=== PATIENT | male | born 1940 | race Caucasian/White ===

== ENCOUNTER 2024-05-12 17:55 | Inpatient (IN) | payer OTHER, SELFPAY ==
[2024-05-12 14:46] VITALS: BMI 31.4
[2024-05-12 14:55] VITALS: BP 135/86
--- NOTE | 2024-05-12 15:07 | ED.GENMED ---
History of Present Illness
General
Chief Complaint: Urinary Symptoms
Source: patient
Time Seen by Provider: 05/12/24 14:45
History of Present Illness
History of Present Illness:
83-year-old male presents emergency department with inability to urinate since earlier today. He states typically he does not have difficulty urinating but over the past few weeks he has noticed that his stream is weaker and he needs to sit down to
urinate. He is having bowel movements as usual and he denies perianal anesthesia or incontinence. He did have this once before about 10 years ago relieved with a catheter briefly. He denies fever, chest pain, shortness of breath, abdominal pain,
nausea, vomiting, chills, or other complaints. Patient denies pain with urination or blood in his urine.
Past History
Past History
ED Past Medical History: Other (Kidney cancer status post left nephrectomy, hypertension, hyperlipidemia, BPH)
ED Past Surgical History: Other (Left-sided nephrectomy, inguinal hernia repair, septoplasty)
Social History
Tobacco: Non-smoker
Alcohol: None
Drug: None
Personal:
Living: other
Phy Exam
Physical Exam
Physical Exam:
GENERAL: Alert , pleasant, appears uncomfortable
EYE: pupils equal and reactive
NECK: Supple, no significant adenopathy.
ENT: o/p clr, mmm.
CARDIAC: Regular rate and rhythm .
LUNGS: Clear breath sounds bilaterally, no acute respiratory distress, no wheezes/rales/rhonchi
ABDOMEN: Soft, mild suprapubic tenderness, no r/g. There is a resolving bruise noted at suprapubic area
NEUROLOGICAL: Alert and oriented, no focal neuro deficits,maee,sens intact, speech clear
SKIN: Warm and dry, skin intact.
MUSCULOSKELETAL: No edema, well perfused.
PSYCH: Normal and appropriate interaction.
: nontender testicles without swelling, no penile discharg/ebleed/swelling or other abnl
Course
Orders/Labs/Results
Orders:
Orders
05/12/24 15:00
Lidocaine 2% [Lidocaine Uro-Jet 2%] 1 syringe .ROUTE .[employer]
05/12/24 15:11
Urinalysis Reflex To Culture Urgent
Date Specimen was Collected: 05/12/24
Time Specimen was Collected: 15:20
Urine Microscopic Reflex Cult Urgent
Urine Culture Urgent
RUBINA Source: U
Specimen Description:
Date Specimen was Collected: 05/12/24
Time Specimen was Collected: 15:20
Lidocaine 2% [Lidocaine Uro-Jet 2%] 1 syringe TOPICAL NOW STA
05/12/24 15:31
Cardiac Monitoring- Treatment ONCE
05/12/24 15:32
US Renal With Bladder Urgent
Comment:
Reason For Exam: retention (note: L nephrectomy)
05/12/24 16:35
Aztreonam [Azactam] 2,000 mg IV NOW STA
05/12/24 16:39
Complete Blood Count/With Diff Urgent
Comprehensive Metabolic Panel Urgent
Lactic Acid Q4H
Comment: CANCEL 2nd LACTIC ACID IF 1st LACTIC ACID IS LESS THAN 2
Blood Culture Routine
RUBINA Source: Blood/Venous
Specimen Description:
Blood Culture Urgent
RUBINA Source: Blood/Venous
Specimen Description:
05/12/24 16:46
Sterile Water [Sterile Water For Injection] 10 ml .ROUTE .[employer] [facility]
05/12/24 17:40
Admit/Transfer Patient As Directed
Co-Sign Provider:
Level of Care: Inpatient admission
Assign to:: Medical/Surgical
Physician / Group: maxwell garcia
Diagnosis: urinary retention, uti solo kidney, renal ca mets spine/pelvis/liver
Reason for Hospitalization: urinary retention, uti solo kidney, renal ca mets spine/pelvis/liver
Expected length of stay greater than two midnights?: Yes
ELOS- Estimated Length of Stay in days: 4
I certify the patient meets the requirements for IP care: Yes
05/12/24 17:42
Code Status As Directed
Resuscitation Status: Full Code
05/12/24 17:44
PRN Pain Medication Management As Directed
May give lesser potent ordered pain med per pt: Yes
preference::
Protocol:: Medication orders for pain may be administered in a
manner that supports deferring to patient preference
when the pt is:
- Requesting an ordered lesser potent pain medication.
Least to most potent pain medications are defined
as: acetaminophen < NSAID < tramadol < opioids
(morphine, oxycodone, hydromorphone).
- Requesting a lesser dose of the same medication IF
ORDERED.
- Requesting a less intrusive route of administration
if both routes are prescribed by the provider (PO <
IV).
05/12/24 17:53
UROLOGY CONSULT Routine
Consulting Provider: Robles Angela
Was physician already notified: Yes
Comment: urine retention /uti
05/12/24 19:45
Lactic Acid Q4H
Comment: CANCEL 2nd LACTIC ACID IF 1st LACTIC ACID IS LESS THAN 2
Abnormal Lab Results
05/12/24 05/12/24
15:11 16:39
RBC 4.57 L 10^6/uL
(4.70-6.10)
Absolute Monos (auto) 0.7 H 10^3/uL
(0.1-0.6)
Monocytes % 12.2 H %
(1.7-9.3)
Carbon Dioxide 21 L mmol/L
(22-30)
BUN 37 H mg/dl
(9-20)
Creatinine 2.2 H mg/dL
(0.7-1.3)
Total Bilirubin 1.8 H mg/dl
(0.2-1.3)
Urine Ketones Trace A
(Negative)
Ur Occult Blood Reflex 4+ A
(Negative)
Leukocyte Esterase Rfl 2+ A
(Negative)
Urine RBC 7-10 A /HPF
(0-2)
Urine WBC (Reflex) >100 A /HPF
(0-5)
Urine Bacteria (Reflex) Moderate A
(Negative)
Urine Albumin (Reflex) 2+ A
(Neg - Trace)
05/12/24 16:39
05/12/24 16:39
Vital Signs
Initial and Last Documented VS:
Initial Vital Signs
Temp Pulse Resp BP Pulse Ox
97.9 F 99 18 135/86 99
05/12/24 14:55 05/12/24 14:55 05/12/24 14:55 05/12/24 14:55 05/12/24 14:55
Last Documented Vital Signs
Temp Pulse Resp BP Pulse Ox
97.9 F 90 25 103/65 97
05/12/24 14:55 05/12/24 18:30 05/12/24 18:30 05/12/24 18:00 05/12/24 17:00
*Critical Care Note
Total Time (30-74mins, 75-104mins- exclusive of procedures): Not Applicable
Update Note
Update Note:
Patient presents to the Emergency Department with ___inability urinate
Number and Complexity of Problems Addressed at the Encounter
� Chronic conditions affecting care:
� Acute Exacerbation and/or Progression of Chronic Illness:
� Differential Diagnosis includes: But not limited to retention related to BPH, prostatitis, cancerous mass, etc.
Amount and/or Complexity of Data to be Reviewed and Analyzed
� I performed an independent evaluation of and my interpretation is:
EKG:
CT:
Xrays:
Laboratory Studies:Labs pending, urine consistent with obvious infection
Other:Ultrasound of kidney completed,
1. Collapsed urinary bladder with a Coburn catheter in place.
2. Mild chronic right renal disease.
3. Previous left nephrectomy.
� Review of other/old records reveals: Reviewed paperwork from facility which describes his meds as well as his history of BPH and kidney cancer.
� Clinical information was obtained by an independent historian:
� Prescriptions/Medications Considered but not given:
� Further testing considered but not performed:
Risk of Complications and/or Morbidity or Mortality of Patient Management
� Social determinants of health affecting care:
� Discussion with other providers (PCP, Hospitalists, Consultants, etc):
� Escalation of care including admission/observation vs risk of discharge considered:4:37 PM patient presents with urinary retention relieved with Coburn catheter, obviously infected urine noted, treatment initiated given his
nephrectomy and penicillin allergy and consideration. Remained stable. Ultrasound and labs pending. Case discussed with Dr. Garcia for admission.
ED Attending Note
-
Portions of this chart may have been created with voice recognition software.� Occasional wrong word or��sound alike� substitutions may have occurred due to the inherent limitations of voice recognition software.
Discharge Plan
Departure
Patient Disposition: Admit
Date of Disposition: 05/12/24
Time of Disposition: 16:36
Presentation/result/management discussed w/ accepting MD/DO: Hospitalist
Condition: Fair
Discharge Problem:
Acute UTI, Acute urinary retention
Interventions
Interventions:
*Risk Screen - Suicide Last Done: 05/12/24 14:46
*General Assessment Last Done: 05/12/24 14:46
*Neglect/Abuse Screening Last Done: 05/12/24 14:46
ED- Fall Risk Assessment Last Done: 05/12/24 14:46
*ED COVID-19 Vaccine History Last Done: 05/12/24 14:46
*Nursing Disposition Last Done: 05/12/24 18:43
ED-Male Genitourinary Assessment Last Done: 05/12/24 16:52
[2024-05-12] MEDS: LIDOCAINE URO-JET 2% 1 SYRINGE TOPICAL (15:20)
[2024-05-12 16:00] LABS: Urine Albumin 2+ (Neg - Trace); Urine Bilirubin Negative (Negative); Urine Character Very Cloudy (Clear); Urine Color Yellow; Urine Glucose Negative (Negative); Urine Ketone Trace (Negative); Urine Leukocyte 2+ (Negative); Urine Nitrite Negative (Negative); Urine Occult Blood 4+ (Negative); Urine Urobilinogen Negative (Neg - 1+)
[2024-05-12 16:09] LABS: Urine Bacteria Moderate (Negative); Urine White Cell >100 /HPF (0-5)
[2024-05-12 16:38] VITALS: BP 104/75
[2024-05-12] MEDS: AZACTAM 2000 MG IV (16:47)
--- NOTE | 2024-05-12 16:52 | HPS.HSE ---
Family Physician
-
Family Physician: Edsion King
Chief Complaint
-
Inability to urinate since this a.m.
History of Present Illness
83-year-old male complaining of inability to urinate since earlier today. He reports over the past few weeks he has had decreased stream and needed to sit down to urinate. He does have history of left nephrectomy secondary to renal carcinoma. He
denies fever, abdominal pain, nausea, vomiting, diarrhea, chest pain, palpitations, shortness breath, cough.
He has past medical history left nephrectomy secondary to carcinoma, HTN, HLD, BPH, hypothyroidism, depression chronic ambulatory dysfunction uses rollator/walker or wheelchair secondary to chronic back pain from Renal carcinoma mets( March 2024)
to spine, lumbar area, pelvis, liver, lesion between pancreas and stomach is on current chemotherapy Cabometyx 20 mg daily and immunotherapy every [address] Lc simpson.
Medical History
Past Medical History
Past Medical History: Reports Other
Additional Past Medical History:
left nephrectomy secondary to carcinoma
Chronic back pain with ambulatory dysfunction secondary to Hx RENAL CA mets ( March 2024) to spine, lumbar area, pelvis, liver, lesion between pancreas and stomach -follows at [facility] oncology
HTN
HLD
BPH
hypothyroidism
depression
Past Surgical History: Reports Other
Additional Past Surgical History:
Bilateral inguinal hernia
Septoplasty
Left nephrectomy secondary to renal carcinoma
Social History
Tobacco: Former Smoker (Quit 50 years ago)
Alcohol: None
Drug: None
Personal: Single
Living: Assisted Living ([facility])
Employment: Retired
Family History
Family History: Other (Mother [place] age 65 history of COPD, father malignant tumor near left ear unsure type, 1 sister after fall 1 brother living unsure)
Allergies / Home Medications
Allergies reflects when Allergies were last updated in [employer].
Home Medications with original date entered in [employer]
Allergy/Medication List:
Allergies
Allergy/AdvReac Type Severity Reaction Status Date / Time
Penicillins Allergy Unknown Verified 05/12/24 14:56
Sulfa (Sulfonamide Allergy Unknown Verified 05/12/24 14:56
Antibiotics)
Home Medications
acetaminophen 325 mg tablet 650 mg PO Q6HPRN PRN mild pain 05/12/24
amlodipine 5 mg tablet 5 mg PO DAILY 05/12/24
ascorbic acid (vitamin C) 500 mg tablet (Vitamin C) 500 mg PO DAILY 05/12/24
aspirin 81 mg tablet,delayed release 81 mg PO DAILY 05/12/24
atorvastatin 20 mg tablet 20 mg PO HS 05/12/24
bisacodyl 10 mg rectal suppository 10 mg DE [id number] PRN constipation, mom ineffective 05/12/24
cabozantinib 20 mg tablet (Cabometyx) 20 mg PO DAILY 05/12/24
cholecalciferol (vitamin D3) 50 mcg (2,000 unit) tablet (Vitamin D3) 50 mcg PO DAILY 05/12/24
fenofibrate nanocrystallized 145 mg tablet 145 mg PO DAILY 05/12/24
finasteride 5 mg tablet 5 mg PO DAILY 05/12/24
folic acid 1 mg tablet 1 mg PO DAILY 05/12/24
levothyroxine 75 mcg tablet 75 mcg PO DAILY 05/12/24
lidocaine 5 % topical patch 1 patch topical DAILY 05/12/24
magnesium hydroxide 400 mg/5 mL oral suspension (Milk of Magnesia) 30 ml PO DAILYPRN PRN constipation 05/12/24
methocarbamol 500 mg tablet 1,000 mg PO Q6HPRN PRN muscle spasms 05/12/24
omega 5-sct-jwk-fish oil 1,200 mg (144 mg-216 mg) capsule (Fish Oil) 1,200 cap PO DAILY 05/12/24
oxycodone 5 mg tablet 5 mg PO Q8HPRN PRN moderate pain 05/12/24
sodium phosphates 19 gram-7 gram/118 mL enema (Fleet Enema) 118 ml DE DAILYPRN PRN constipation 05/12/24
tamsulosin 0.4 mg capsule 0.8 mg PO NOON 05/12/24
trazodone 100 mg tablet 100 mg PO HS 05/12/24
Review of Systems
-
History Source: Patient and Family (Jeromy edwards via phone-POA)
A 12 point ROS was completed and negative except as noted: Yes
Constitutional: Denies Fever, Fatigue or Chills
EENT: Denies Sore Throat or Runny Nose
Respiratory: Denies Cough or Trouble Breathing
Cardiac: Denies Chest Pain, Diaphoresis, Palpitations or Syncope
Abdomen/GI: Denies Abdominal Pain, Nausea, Vomiting, Diarrhea, Constipated or Bloody Stools
: Reports Difficulty Voiding (Today); Denies Flank Pain
Musculoskeletal: Denies Joint Pain or Edema
Skin: Denies Itching or Rash
Neurological: Denies Dizzy or Headache
Endocrine: Reports No Symptoms
Hematologic/Lymphatic: Reports No Symptoms
Psych: Reports Calm
Physical Exam
Vital Signs
Vital Signs
Temp Pulse Resp BP Pulse Ox
97.9 F 99 18 135/86 99
05/12/24 14:55 05/12/24 14:55 05/12/24 14:55 05/12/24 14:55 05/12/24 14:55
Physical Exam
General: Conversant, Obese and Other (Poor memory recall); No Pain, Fever or Chills
HEENT: NormoCephalic, Anicteric, PERRLA and No Ptosis
Respiratory: Clear; No Wheezes, Rales or Rhonchi
Cardiac: S1/S2 and Regular Rhythm; No Murmur, Rub, Gallop or Peripheral Edema
Breast: Deferred by me
GI: Soft, Non Tender, Non Distended, Normal Bowel Sounds and No Hepatosplenomegaly
Rectal: Deferred by Provider
Genito-urinary: No costovertebral tender and Coburn (Inserted in ER initially cloudy and purulent currently yellow in color)
Musculoskeletal: No Clubbing, No Cyanosis and No Edema
Skin: Warm and Dry; No Rash
Neuro: Awake, Alert, Oriented (To person, current place, son but not place of living or all of medical history) and Cranial Nerves Intact; No DTR's Intact & Symmetrical, Slurred Speech, Facial Droop or Tremors
Psych: Calm
Impression/Plan
-
Impression/plan:
Admit to MedSurg
#Acute urinary retention/UTI Solo kidney right
#Hx LEFT nephrectomy secondary to renal carcinoma 1967
#Hx BPH
-Coburn catheter inserted in ER drained purulent urine
-Follow UA CONVEYANCER
-Follow BMP, CBC, blood cultures x 2
-IV Azactam renal dose
-IV NSS
-Continue finasteride 5 mg daily, tamsulosin 0.8 mg at noon
-Consult Urology
Renal bladder ultrasound:
1. Collapsed urinary bladder with a Coubrn catheter in place
2. Mild chronic right renal disease
3. Previous left nephrectomy
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
-Creat 2.2/bun 37
-Hold nephrotoxic meds
-IV NSS
-Follow BMP
# Hx RENAL CA mets ( March 2024) to spine, lumbar area, pelvis, liver, lesion between pancreas and stomach
-HOLD current chemotherapy Cabometyx 20 mg daily
- is on Immunotherapy every [address] Brambila [facility] oncology
#Chronic back pain with ambulatory dysfunction secondary to above RENAL CA METS spine pelvis
-Continue oxycodone 5 mg every 8 hours as needed moderate pain, lidocaine patch lumbar spine
-PT/OT/case management consult
#HTN-benign
BP 135/86
-Continue amlodipine 5 mg daily with hold parameters
#HLD
-Continue atorvastatin 20 mg at bedtime, fenofibrate 145 mg daily
#Hypothyroidism
-Continue levothyroxine 75 mcg p.o. daily
#Depression
-Continue trazodone 100 mg at bedtime
#Sleep apnea�noncompliant with CPAP since December weight loss 65 pound
DVT prophylaxis
Subcu heparin
Full code
[2024-05-12 16:53] LABS: % Basophils 0.4 % (0-2); % Eosinophils 3.2 % (0-6); % Immature Granulocytes 0.4 % (0-0.5); % Lymphocytes 29.3 % (20.5-51.1); % Monocytes 12.2 % (1.7-9.3); % Neutrophils 54.5 % (42.2-75.2); Absolute Eosinophils 0.2 10^3/uL (0-0.7); Absolute Lymphocytes 1.6 10^3/uL (1.2-3.4); Absolute Monocytes 0.7 10^3/uL (0.1-0.6); Absolute Neutrophils 2.9 10^3/uL (1.4-6.5); Hematocrit 40.5 % (39.0-52.0); Hemoglobin 13.7 g/dL (13.0-18.0); Mean Corp Hgb Conc. 33.8 g/dL (33.0-37.0); Mean Corpuscular Volume 88.6 fL (80.0-94.0); Mean Platelet Volume 9.3 fL (7.4-10.4); Nucleated Red Blood Cells % 0 % (-); Platelet Count 196 10^3/uL (130-400); Red Blood Cell Count 4.57 10^6/uL (4.70-6.10); Red Cell Dist. Width 14.5 % (11.5-14.5); White Blood Cell Count 5.3 10^3/uL (4.8-10.8)
[2024-05-12 17:00] VITALS: BP 112/74
[2024-05-12 17:02] LABS: Lactic Acid 1.3 mmol/L (0.7-2.0)
[2024-05-12 17:03] LABS: ALT (SGPT) 28 U/L (0-50); AST (SGOT) 46 U/L (17-59); Albumin 3.8 g/dl (3.5-5.0); Alkaline Phosphatase 100 U/L (38-126); Blood Urea Nitrogen 37 mg/dl (9-20); Calcium 9.3 mg/dl (8.4-10.2); Carbon Dioxide 21 mmol/L (22-30); Chloride 100 mmol/L (98-107); Estimated Creatinine Clearance 26 ml/min; Glucose 86 mg/dl (70-99); Potassium 5.1 mmol/L (3.5-5.1); Sodium 136 mmol/L (135-145); Total Bilirubin 1.8 mg/dl (0.2-1.3); Total Protein 6.8 g/dl (6.3-8.2); eGFR 29.17
--- NOTE | 2024-05-12 17:23 | W.PN.UPDATE ---
Update Note
Progress Note Update
This note serves as an addendum to the H&P by environmental engineering technician GARY Sapna BARKLEY
HPI
83M Obese , HX Renal cell CA with mets to spine, pelvis and liver s/p Lt nephrectomy pw inability to urinate since earlier today.
- reports over the past few weeks he has had decreased stream and needed to sit down to urinate.
- Denies fever, abdominal pain, nausea, vomiting, diarrhea, chest pain, palpitations, shortness breath, cough.
PHX:
HX left nephrectomy secondary to carcinoma, HTN, HLD, BPH, hypothyroidism, depression
Vital Signs
Temp Pulse Resp BP Pulse Ox
97.9 F 99 18 135/86 99
05/12/24 14:55 05/12/24 14:55 05/12/24 14:55 05/12/24 14:55 05/12/24 14:55
PE
Gen: Obese, not toxic
HEENT: anicteric
Neck:supple
Lungs: CTS
Cor: RRR S1 S2
Abdomen: soft abdomen
FIELD CLERK: AAO3, NFND
MS: no edema
Psych: nl mood and affect
Data
Laboratory Tests
05/12/24 05/12/24
15:11 16:39
WBC 5.3
Carbon Dioxide 21 L
BUN 37 H
Creatinine 2.2 H
Urine Clarity Very cloudy
Leukocyte Esterase Rfl 2+ A
Urine RBC 7-10 A
Urine WBC (Reflex) >100 A
Ur Squamous Epith Cells 3-5
Urine Bacteria (Reflex) Moderate A
BCx sent
US Renal With Bladder
1. Collapsed urinary bladder with a Coburn catheter in place.
2. Mild chronic right renal disease.
3. Previous left nephrectomy.
No prior hospitalist admission:
ASSESSMENT & PLAN
Acute urinary retention plus UTI
Solitary Rt kidney
Associated MONA suspect obstructive origin due to acute UR
suspected CKD - no prior Cr at Data
HX Lt. nephrectomy secondary to renal carcinoma
HX BPH
HX PCN and Sulfa allergy
-Coburn catheter inserted in ER drained purulent urine
-Follow UCx
-Follow BMP, CBC, blood cultures x 2
-IV Azactam
- Continue finasteride 5 mg daily, tamsulosin 0.8 mg at noon
- Uro consult
Loss 55 lbs from December 2023
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
Essential HTN
-Continue amlodipine 5 mg daily with hold parameters
DVT Px: SQH
Code: Full code
IP MS
[2024-05-12 18:00] VITALS: BP 103/65
[2024-05-12 20:00] VITALS: BP 119/69
[2024-05-12 20:19] VITALS: BMI 31.5
[2024-05-12] MEDS: HEPARIN 5000 UNITS SC (22:32)
[2024-05-12] MEDS: LIPITOR 20 MG PO (22:33)
[2024-05-12] MEDS: DESYREL 100 MG PO (22:33)
[2024-05-12] MEDS: AZACTAM 5 MG IV (23:20)
[2024-05-12 23:42] VITALS: BP 108/67
[2024-05-13] MEDS: SYNTHROID 75 MCG PO (05:11)
[2024-05-13 07:00] VITALS: BP 109/61
--- NOTE | 2024-05-13 07:29 | PTCARENOTE ---
Patient arrived on unit @1947 via stretcher from ED, pulled over with assist x3 to bed. Patient AAOx3 denies any pain or discomfort. Skin assessment completed, oriented to unit call salas within reach.
[2024-05-13] MEDS: ASPIR LOW (ENTERIC COATED) 81 MG PO (08:11)
[2024-05-13] MEDS: PROSCAR 5 MG PO (08:11)
[2024-05-13] MEDS: VITAMIN C 500 MG PO (08:12)
[2024-05-13] MEDS: FOLVITE 1 MG PO (08:12)
[2024-05-13] MEDS: VITAMIN D3 (cholecalciferol) 50 MCG PO (08:12)
[2024-05-13] MEDS: AZACTAM 5 MG IV (08:18)
[2024-05-13] MEDS: LIDOCAINE 4% PATCH 1 PATCH TOPICAL (08:18)
[2024-05-13] MEDS: NORVASC PO (08:20)
[2024-05-13] MEDS: HEPARIN 5000 UNITS SC ×2 (08:20→20:14)
[2024-05-13] MEDS: DESENEX/MITRAZOL/ZEASORB 1 APPLIC TOPICAL ×2 (08:22→20:14)
[2024-05-13 08:33] LABS: % Basophils 0.4 % (0-2); % Eosinophils 4.9 % (0-6); % Immature Granulocytes 0.4 % (0-0.5); % Lymphocytes 28.4 % (20.5-51.1); % Monocytes 11.4 % (1.7-9.3); % Neutrophils 54.5 % (42.2-75.2); Absolute Eosinophils 0.2 10^3/uL (0-0.7); Absolute Lymphocytes 1.4 10^3/uL (1.2-3.4); Absolute Monocytes 0.6 10^3/uL (0.1-0.6); Absolute Neutrophils 2.7 10^3/uL (1.4-6.5); Hematocrit 38.1 % (39.0-52.0); Hemoglobin 12.8 g/dL (13.0-18.0); Mean Corp Hgb Conc. 33.6 g/dL (33.0-37.0); Mean Corpuscular Hgb 29.6 pg (27.0-31.0); Mean Corpuscular Volume 88.2 fL (80.0-94.0); Mean Platelet Volume 9.7 fL (7.4-10.4); Nucleated Red Blood Cells % 0 % (-); Platelet Count 204 10^3/uL (130-400); Red Blood Cell Count 4.32 10^6/uL (4.70-6.10); Red Cell Dist. Width 14.5 % (11.5-14.5); White Blood Cell Count 4.9 10^3/uL (4.8-10.8)
[2024-05-13 08:54] LABS: ALT (SGPT) 24 U/L (0-50); AST (SGOT) 42 U/L (17-59); Albumin 3.5 g/dl (3.5-5.0); Alkaline Phosphatase 95 U/L (38-126); Blood Urea Nitrogen 35 mg/dl (9-20); Calcium 8.6 mg/dl (8.4-10.2); Carbon Dioxide 20 mmol/L (22-30); Chloride 102 mmol/L (98-107); Estimated Creatinine Clearance 32 ml/min; Glucose 95 mg/dl (70-99); Potassium 4.4 mmol/L (3.5-5.1); Sodium 137 mmol/L (135-145); Total Bilirubin 1.8 mg/dl (0.2-1.3); Total Protein 6.4 g/dl (6.3-8.2); eGFR 37.12
[2024-05-13 10:00] VITALS: BP 149/83; PULSE 91
[2024-05-13] MEDS: STERILE WATER FOR INJECTION 10 ML IV ×2 (10:00→21:35)
[2024-05-13] MEDS: MAXIPIME 1000 MG IV ×2 (10:01→21:35)
[2024-05-13 10:20] VITALS: BP 149/83; PULSE 91; O2SAT 98
--- NOTE | 2024-05-13 11:09 | W.PN.URO.CBU ---
Today's Communication / Plan
-
tach driscoll leg bag care
Assessment / Plan
-
uti rettnion in immuno supessed pt plab[n per id and hospital;ist but uroogicallt keep driscoll and see if pt can manage at home may need nhp
Diagnosis
-
Date of Service: May 13, 2024
-
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
Post Op Day:
Subjective
-
cannot void feels better though
Objective
-
Vital Signs
Temp Pulse Resp BP Pulse Ox
97.7 F 85 18 109/61 95
05/13/24 07:00 05/13/24 07:00 05/13/24 07:00 05/13/24 08:20 05/13/24 07:00
Laboratory Results
05/13/24 06:58
05/13/24 06:58
Review of Systems
-
Constitutional: Fever and Chills
: Difficulty Voiding
Physical Exam
-
General - well developed, well nourished, no acute distress
Chest - clear bilaterally
Abdomen - soft, non-tender, positive bowel sounds, no CVAT, no incisional pain or distention
Genitalia - normal
Rectal - normal
Skin - warm & dry with no rash
Neuro - AOx3, no motor deficits
Extremities - no clubbing, no cyanosis, no edema
Incision - clean, dry
Dressing - clean, dry, intact
Care Review
Data Reviewed
Discussed with: Nursing, Family and Other (soc svcs)
CT Scan: Image Pers Reviewed
[2024-05-13] MEDS: FLOMAX 0.8 MG PO (12:18)
[2024-05-13] MEDS: TUMS CHEWABLE TABLET 200 MG PO (12:37)
--- NOTE | 2024-05-13 14:11 | W.PN.HOSP.TC ---
Today's Communication/Plan
-
continue outlined plan
Assessment / Plan
Assessment / Plan
Assessment:
Acute urinary retention/UTI Solo kidney right
Hx LEFT nephrectomy secondary to renal carcinoma 1967
Hx BPH
- s/p Coburn in ER, purulent urine noted. Culture rapidly negative, suspect false negative. Repeat Ucx now
- continue Cefepime
- continue IVF
- Urology consulting; plan for Coburn at time of DC
- continue Proscar/Finasteride
MONA on CKD stage 4, obstuctive
- continue IVF
- continue Coburn
- follow BMP
Early satiety, food stuck sensation, heartburn
- start with esophageal contrast study
- consider GI eval
Hx of Renal Cancer with mets to spine, lumbar area, pelvis, liver, lesion between pancreas and stomach
- hold current chemotherapy Cabometyx 20 mg daily
- is on Immunotherapy every [address] Brambila [facility] oncology
Chronic back pain with ambulatory dysfunction secondary to above RENAL CA METS spine pelvis
- continue oxycodone 5 mg every 8 hours as needed moderate pain, lidocaine patch lumbar spine
- PT/OT/case management consult
Essential HTN
- continue amlodipine
HLD
- continue atorvastatin 20 mg at bedtime, fenofibrate 145 mg daily
Hypothyroidism
- continue levothyroxine 75 mcg p.o. daily
Depression
- continue trazodone 100 mg at bedtime
KATLYN - noncompliant with CPAP since December weight loss 65 pound
DVT ppx: SC Heparin
Code: Full
Anticipated Discharge: > 48 hours
Subjective/Interval History
-
Date of Service: May 13, 2024
reports some issues with taking pills/food - food stuck sensation, heartburn, early satiety. Tums not helpful
Objective Data
-
Labs:
Laboratory Results
05/13/24
06:58
WBC 4.9
Hgb 12.8 L
Hct 38.1 L
Plt Count 204
Sodium 137
Potassium 4.4
Chloride 102
Carbon Dioxide 20 L
BUN 35 H
Creatinine 1.8 H
Glucose 95
Calcium 8.6
Total Bilirubin 1.8 H
AST 42
ALT 24
Alkaline Phosphatase 95
Vital Signs:
Vital Signs
Temp Pulse Resp BP Pulse Ox
97.7 F 85 18 109/61 95
05/13/24 07:00 05/13/24 07:00 05/13/24 07:00 05/13/24 08:20 05/13/24 07:00
Physical Exam
-
General: No Apparent Distress
HEENT: Normocephalic and Atraumatic
Respiratory: Negative Wheezes
Cardiac: Regular Rhythm and S1/S2
GI: Soft and Nontender
Genito-urinary: Coburn
Neuro: AO x 3
Psych: Calm
Data Reviewed
-
Total Time Spent with Patient (in minutes): 41
Labs: Labs Reviewed by me
[2024-05-13 15:00] VITALS: BP 116/71
[2024-05-13 15:46] VITALS: BMI 31.5
--- NOTE | 2024-05-13 16:00 | PTCARENOTE ---
at 1232, patient c/o heartburn, has difficulty taking oral medications/food, feels like 'It's getting stuck' early satiety. notified Dr. Awad requesting Tums. Tums administered (see MAR) with some relief, will continue to monitor.
[2024-05-13] MEDS: DESYREL 100 MG PO (21:35)
[2024-05-13] MEDS: LIPITOR 20 MG PO (21:35)
[2024-05-13 23:19] VITALS: BP 98/63
[2024-05-14] MEDS: SYNTHROID 75 MCG PO (05:56)
[2024-05-14 07:00] VITALS: BP 112/74
[2024-05-14 07:26] LABS: % Basophils 0.2 % (0-2); % Eosinophils 3.9 % (0-6); % Immature Granulocytes 0.4 % (0-0.5); % Monocytes 10.9 % (1.7-9.3); % Neutrophils 49.6 % (42.2-75.2); Absolute Eosinophils 0.2 10^3/uL (0-0.7); Absolute Lymphocytes 1.7 10^3/uL (1.2-3.4); Absolute Monocytes 0.5 10^3/uL (0.1-0.6); Absolute Neutrophils 2.4 10^3/uL (1.4-6.5); Hematocrit 39.8 % (39.0-52.0); Hemoglobin 13.1 g/dL (13.0-18.0); Mean Corp Hgb Conc. 32.9 g/dL (33.0-37.0); Mean Corpuscular Hgb 29.6 pg (27.0-31.0); Mean Corpuscular Volume 89.8 fL (80.0-94.0); Mean Platelet Volume 9.5 fL (7.4-10.4); Nucleated Red Blood Cells % 0 % (-); Platelet Count 187 10^3/uL (130-400); Red Blood Cell Count 4.43 10^6/uL (4.70-6.10); Red Cell Dist. Width 14.6 % (11.5-14.5); White Blood Cell Count 4.9 10^3/uL (4.8-10.8)
[2024-05-14 07:50] LABS: ALT (SGPT) 25 U/L (0-50); AST (SGOT) 46 U/L (17-59); Albumin 3.4 g/dl (3.5-5.0); Alkaline Phosphatase 95 U/L (38-126); Blood Urea Nitrogen 33 mg/dl (9-20); Calcium 8.9 mg/dl (8.4-10.2); Carbon Dioxide 21 mmol/L (22-30); Chloride 101 mmol/L (98-107); Estimated Creatinine Clearance 35 ml/min; Glucose 94 mg/dl (70-99); Sodium 136 mmol/L (135-145); Total Bilirubin 1.6 mg/dl (0.2-1.3); Total Protein 6.4 g/dl (6.3-8.2); eGFR 42.49
[2024-05-14] MEDS: VITAMIN D3 (cholecalciferol) 50 MCG PO (09:15)
[2024-05-14] MEDS: NORVASC 5 MG PO (09:15)
[2024-05-14] MEDS: PROSCAR 5 MG PO (09:15)
[2024-05-14] MEDS: FOLVITE 1 MG PO (09:15)
[2024-05-14] MEDS: VITAMIN C 500 MG PO (09:15)
[2024-05-14] MEDS: ASPIR LOW (ENTERIC COATED) 81 MG PO (09:15)
[2024-05-14] MEDS: LIDOCAINE 4% PATCH TOPICAL ×2 (09:16→11:05)
[2024-05-14] MEDS: HEPARIN 5000 UNITS SC ×2 (09:16→19:51)
[2024-05-14] MEDS: MAXIPIME 1000 MG IV ×2 (09:24→21:19)
[2024-05-14] MEDS: STERILE WATER FOR INJECTION 10 ML IV ×2 (09:24→21:19)
[2024-05-14] MEDS: DESENEX/MITRAZOL/ZEASORB 1 APPLIC TOPICAL ×2 (09:25→19:54)
--- NOTE | 2024-05-14 11:31 | W.PN.HOSP.TC ---
Today's Communication/Plan
-
continue IV Abx
continue Coburn
Esophageal contrast study tomorrow
add PPI and continue prn Tums for symptoms
Assessment / Plan
Assessment / Plan
Assessment:
Acute urinary retention/UTI Solo kidney right
Hx LEFT nephrectomy secondary to renal carcinoma 1967
Hx BPH
- s/p Coburn in ER, purulent urine noted. Culture rapidly negative, suspect false negative. Repeat Ucx now
- continue Cefepime, day 2
- continue IVF
- Urology consulting; plan for Coburn at time of DC
- continue Proscar/Finasteride
MONA on CKD stage 4, obstructive
- continue IVF
- continue Coburn
- follow BMP
Early satiety, food stuck sensation, heartburn
- NPO past MN for esophageal contrast study
- add Tums prn
- PPI daily
- consider GI eval after study as may need endoscopic evaluation
Hx of Renal Cancer with mets to spine, lumbar area, pelvis, liver, lesion between pancreas and stomach
- hold current chemotherapy Cabometyx 20 mg daily
- is on Immunotherapy every [address] Brambila [facility] oncology
Chronic back pain with ambulatory dysfunction secondary to above RENAL CA METS spine pelvis
- continue oxycodone 5 mg every 8 hours as needed moderate pain, lidocaine patch lumbar spine
- PT/OT/case management consult
Essential HTN
- continue amlodipine
HLD
- continue atorvastatin 20 mg at bedtime, fenofibrate 145 mg daily
Hypothyroidism
- continue levothyroxine 75 mcg p.o. daily
Depression
- continue trazodone 100 mg at bedtime
KATLYN - noncompliant with CPAP since May weight loss 65 pound
DVT ppx: SC Heparin
Code: Full
Anticipated Discharge: > 48 hours
Subjective/Interval History
-
Date of Service: May 14, 2024
continues to experience heartburn, dysphagia symptoms
Objective Data
-
Labs:
Laboratory Results
05/14/24
06:27
WBC 4.9
Hgb 13.1
Hct 39.8
Plt Count 187
Sodium 136
Potassium 5.0
Chloride 101
Carbon Dioxide 21 L
BUN 33 H
Creatinine 1.6 H
Glucose 94
Calcium 8.9
Total Bilirubin 1.6 H
AST 46
ALT 25
Alkaline Phosphatase 95
Vital Signs:
Vital Signs
Temp Pulse Resp BP Pulse Ox
98.1 F 90 16 112/74 96
05/14/24 07:00 05/14/24 07:00 05/14/24 07:00 05/14/24 07:00 05/14/24 07:00
I&O
05/13/24 05/14/24 05/15/24
06:59 06:59 06:59
Intake Total 1060 / 1060
Output Total 450 / 450
Balance 610 / 610
Physical Exam
-
General: No Apparent Distress
HEENT: Normocephalic and Atraumatic
Respiratory: Negative Wheezes
Cardiac: Regular Rhythm and S1/S2
GI: Soft and Nontender
Genito-urinary: Coburn
Musculoskeletal: No Edema
Neuro: AO x 3
Hematologic / Lymphatic: No Lymphadenopathy
Psych: Calm
Data Reviewed
-
Total Time Spent with Patient (in minutes): 42
Labs: Labs Reviewed by me
--- NOTE | 2024-05-14 11:51 | W.PN.URO.CBU ---
Today's Communication / Plan
-
home when stable with driscoll spoke with son florencio is approsed ofurologic pron[blem
Assessment / Plan
-
uti rettnion in immuno supessed pt plab[n per id and hospital;ist but uroogicallt keep driscoll and see if pt can manage at home may need nhp
Diagnosis
-
Date of Service: May 14, 2024
-
Patient Diagnosis:
Post Op Day:
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
Post Op Day:
Subjective
-
toerating driscoll no hematuria
Objective
-
Vital Signs
Temp Pulse Resp BP Pulse Ox
98.1 F 90 16 112/74 96
05/14/24 07:00 05/14/24 07:00 05/14/24 07:00 05/14/24 07:00 05/14/24 07:00
Intake and Output
05/13/24 05/14/24 05/15/24
06:59 06:59 06:59
Intake Total 1060 / 1060
Output Total 450 / 450
Balance 610 / 610
Intake:
Oral fluids 1060 / 1060
Output:
Urine, Driscoll 450 / 450
Laboratory Results
05/14/24 06:27
05/14/24 06:27
Review of Systems
-
: Difficulty Voiding
Physical Exam
-
General - well developed, well nourished, no acute distress
Chest - clear bilaterally
Abdomen - soft, non-tender, positive bowel sounds, no CVAT, no incisional pain or distention
Genitalia - normal
Rectal - normal
Skin - warm & dry with no rash
Neuro - AOx3, no motor deficits
Extremities - no clubbing, no cyanosis, no edema
Incision - clean, dry
Dressing - clean, dry, intact
Care Review
Data Reviewed
Discussed with: Hospitalist and Family
[2024-05-14] MEDS: FLOMAX 0.8 MG PO (12:15)
[2024-05-14] MEDS: NSS (PRESERVATIVE FREE) 10 ML IV (12:17)
[2024-05-14] MEDS: PROTONIX IV 40 MG IV (12:17)
--- NOTE | 2024-05-14 14:36 | PTCARENOTE ---
Patient OOB with walker and supervision. Patient ambulated in halls and sat in chair for 2.5 hours. Patient tolerating small amounts of soft food. Patient states, 'I feel like it is just sitting there and I don't feel hungry anymore.'
[2024-05-14 15:00] VITALS: BP 108/81
--- NOTE | 2024-05-14 16:55 | CM ---
Patient lives at [facility], per Dr. Angela will need to go home on [place]. Assessment needs to be done.
Plan: Case management will continue to follow and assist with discharge planning. Tentative plan is for patient to return to [facility].
[2024-05-14] MEDS: DESYREL 100 MG PO (21:18)
[2024-05-14] MEDS: LIPITOR 20 MG PO (21:18)
[2024-05-14 23:17] VITALS: BP 120/64
[2024-05-15] MEDS: SYNTHROID 75 MCG PO (05:34)
[2024-05-15 06:11] LABS: % Basophils 0.4 % (0-2); % Eosinophils 4.2 % (0-6); % Immature Granulocytes 0.2 % (0-0.5); % Lymphocytes 31.2 % (20.5-51.1); % Monocytes 11.1 % (1.7-9.3); % Neutrophils 52.9 % (42.2-75.2); ALT (SGPT) 30 U/L (0-50); AST (SGOT) 61 U/L (17-59); Absolute Eosinophils 0.2 10^3/uL (0-0.7); Absolute Lymphocytes 1.6 10^3/uL (1.2-3.4); Absolute Monocytes 0.6 10^3/uL (0.1-0.6); Absolute Neutrophils 2.6 10^3/uL (1.4-6.5); Albumin 3.4 g/dl (3.5-5.0); Alkaline Phosphatase 83 U/L (38-126); Blood Urea Nitrogen 34 mg/dl (9-20); Calcium 8.6 mg/dl (8.4-10.2); Carbon Dioxide 20 mmol/L (22-30); Chloride 103 mmol/L (98-107); Estimated Creatinine Clearance 35 ml/min; Glucose 103 mg/dl (70-99); Hematocrit 37.6 % (39.0-52.0); Hemoglobin 12.5 g/dL (13.0-18.0); Mean Corp Hgb Conc. 33.2 g/dL (33.0-37.0); Mean Corpuscular Hgb 28.6 pg (27.0-31.0); Mean Platelet Volume 9.3 fL (7.4-10.4); Nucleated Red Blood Cells % 0 % (-); Platelet Count 200 10^3/uL (130-400); Potassium 5.1 mmol/L (3.5-5.1); Red Blood Cell Count 4.37 10^6/uL (4.70-6.10); Red Cell Dist. Width 14.6 % (11.5-14.5); Sodium 136 mmol/L (135-145); Total Bilirubin 1.5 mg/dl (0.2-1.3); Total Protein 6.3 g/dl (6.3-8.2); eGFR 42.49
[2024-05-15 08:00] VITALS: BP 105/65
[2024-05-15] MEDS: FOLVITE 1 MG PO (08:32)
[2024-05-15] MEDS: VITAMIN D3 (cholecalciferol) 50 MCG PO (08:32)
[2024-05-15] MEDS: ASPIR LOW (ENTERIC COATED) 81 MG PO (08:32)
[2024-05-15] MEDS: VITAMIN C 500 MG PO (08:32)
[2024-05-15] MEDS: PROSCAR 5 MG PO (08:32)
[2024-05-15] MEDS: NORVASC PO (08:34)
[2024-05-15] MEDS: LIDOCAINE 4% PATCH 1 PATCH TOPICAL (08:34)
[2024-05-15] MEDS: PROTONIX IV 40 MG IV ×2 (08:35→21:47)
[2024-05-15] MEDS: HEPARIN 5000 UNITS SC ×2 (08:36→21:47)
[2024-05-15] MEDS: NSS (PRESERVATIVE FREE) 10 ML IV ×2 (08:37→21:48)
[2024-05-15] MEDS: DESENEX/MITRAZOL/ZEASORB 1 APPLIC TOPICAL ×2 (08:38→21:48)
--- NOTE | 2024-05-15 09:16 | W.PN.URO.CBU ---
Today's Communication / Plan
-
home with driscoll
Assessment / Plan
-
uti rettnion in immuno supessed pt plab[n per id and hospital;ist but uroogicallt keep driscoll and see if pt can manage at home may need nhp
Diagnosis
-
Date of Service: May 15, 2024
-
Patient Diagnosis:
Post Op Day:
Patient Diagnosis:
Post Op Day:
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
Post Op Day:
Subjective
-
tolerating driscoll
Objective
-
Vital Signs
Temp Pulse Resp BP Pulse Ox
97.5 F 84 24 105/65 98
05/15/24 08:00 05/15/24 08:00 05/15/24 08:00 05/15/24 08:00 05/15/24 08:00
Intake and Output
05/14/24 05/15/24 05/16/24
06:59 06:59 06:59
Intake Total 1060 / 1060 480 / 480
Output Total 450 / 450 450 / 450
Balance 610 / 610 30 / 30
Intake:
Oral fluids 1060 / 1060 480 / 480
Output:
Urine, Driscoll 450 / 450 450 / 450
Laboratory Results
05/15/24 05:37
05/15/24 05:37
Review of Systems
-
: Difficulty Voiding
Physical Exam
-
General - well developed, well nourished, no acute distress
Chest - clear bilaterally
Abdomen - soft, non-tender, positive bowel sounds, no CVAT, no incisional pain or distention
Genitalia - normal
Rectal - normal
Skin - warm & dry with no rash
Neuro - AOx3, no motor deficits
Extremities - no clubbing, no cyanosis, no edema
Incision - clean, dry
Dressing - clean, dry, intact
Care Review
Data Reviewed
Discussed with: Nursing
[2024-05-15] MEDS: STERILE WATER FOR INJECTION 10 ML IV (10:38)
[2024-05-15] MEDS: MAXIPIME 1000 MG IV (10:39)
--- NOTE | 2024-05-15 11:03 | W.PN.HOSP.TC ---
Today's Communication/Plan
-
see A/P
Assessment / Plan
Assessment / Plan
A/P:
# Acute urinary retention
# Solo kidney right
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
# Hx BPH
s/p Coburn in ER, purulent urine noted.
urine cultures x2 were negative, but given purulent urine noted from admission, would treat for complicated UTI
Change Cefepime to Ancef , total 14 days
continue IVF
Urology consulted; plan for [place]urn at time of DC
continue Proscar/Finasteride
# MONA on CKD stage 4, obstructive uropathy
SCr 2.2 on admission, today at 1.6, unknown SCr baseline
continue gentle IVF 60 cc/hr
continue Coburn
follow BMP
# Early satiety, food stuck sensation, heartburn
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
DC Tums prn, Cont PPI daily
GI eval for endoscopic evaluation
Ok for clears today
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
hold current chemotherapy Cabometyx 20 mg daily
is on Immunotherapy every [address] Brambila [facility] oncology
# Chronic back pain with ambulatory dysfunction secondary to above RENAL CA METS , spine pelvis
continue oxycodone 5 mg every 8 hours as needed moderate pain, lidocaine patch lumbar spine
PT/OT recc SNF vs HH
# Essential HTN
continue amlodipine with holding parameter
# HLD
continue atorvastatin 20 mg at bedtime, fenofibrate 145 mg daily
# Hypothyroidism
continue levothyroxine 75 mcg p.o. daily
# Depression
continue trazodone 100 mg at bedtime
# KATLYN - noncompliant with CPAP since May weight loss 65 pound
DVT ppx: SC Heparin
Code: Full
Anticipated Discharge: 24 - 48 hours
Subjective/Interval History
-
Date of Service: May 15, 2024
Objective Data
-
Labs:
Laboratory Results
05/15/24
05:37
WBC 5.0
Hgb 12.5 L
Hct 37.6 L
Plt Count 200
Sodium 136
Potassium 5.1
Chloride 103
Carbon Dioxide 20 L
BUN 34 H
Creatinine 1.6 H
Glucose 103 H
Calcium 8.6
Total Bilirubin 1.5 H
AST 61 H
ALT 30
Alkaline Phosphatase 83
Vital Signs:
Vital Signs
Temp Pulse Resp BP Pulse Ox
36.4 C 84 24 105/65 98
05/15/24 08:00 05/15/24 08:00 05/15/24 08:00 05/15/24 08:00 05/15/24 08:00
I&O
05/14/24 05/15/24 05/16/24
06:59 06:59 06:59
Intake Total 1060 / 1060 480 / 480
Output Total 450 / 450 450 / 450
Balance 610 / 610 30 / 30
Review of Systems
-
Abdomen/GI: Reports Other (difficulty with swallowing food)
Physical Exam
-
General: Well Developed, Well Nourished, No Apparent Distress, Comfortable and Conversant
HEENT: Normocephalic, Atraumatic, Nose Appears Normal and Ears Appear Normal
Respiratory: Clear to Auscultation and Non Labored Respirations; Negative Wheezes or Accessory Resp Muscle Use
Cardiac: Regular Rhythm and S1/S2
GI: Soft, Nontender, Nondistended and Normal Bowel Sounds
Genito-urinary: [place]
Musculoskeletal: No Edema
Neuro: Awake and Alert
Psych: Calm and Intact Judgement/Insight
Data Reviewed
-
Medical Tests (Nuc Med, Echo etc): Report Reviewed by me (barium swallow)
Labs: Labs Reviewed by me
[2024-05-15] MEDS: FLOMAX 0.8 MG PO (12:16)
--- NOTE | 2024-05-15 12:25 | CON.GI ---
Consultation
-
Date/Time Consultation Requested: 05/15/2024, 11:18
Date/Time Consultation Performed: 05/15/2024, 12:26 PM
Requesting Provider: Dr. Emma Monge
Performing Provider: Dr. Ricky Mcgowan
Reason for Consultation: Dysphagia, abnml UGIS c/f stricture
Medical History
Chief Complaint / HPI
Chief Complaint: Dysphagia, abml esophagram
History of Present Illness:
Mr. Randle is a 84 y.o male with past medical history of HTN, HLD, BPH, hypothyroidism, hx of L Nephrectomy secondary to renal cell carcinoma c/b metastatic RCC with bone, liver, and lesions between pancreas/stomach (on Cabometyx and immunotherapy)
c/b chronic ambulatory dysfunction (walker/wheelchair dependent) who presented to the ED with urinary retention and UTI on 05/12. Incidentally noted to have dysphagia with abnormal esophagram concerning for stricture.
Patient initially presented on 05/12 with several days of worsening difficulty with urination. Patient has a history of metastatic RCC and prior L nephrectomy secondary to carcinoma. He also suffers from chronic back pain with ambulatory dysfunction
due to metastatic renal carcinoma with bone. He was admitted to medicine and Urology was consulted.
Additionally, he reported worsening dysphagia and sensation of food feeling stuck in his esophagus and early satiety. An eventual esophagram on 05/14/24 which revealed minimal contrast emptying from the esophagus into the stomach concerning for a
stricture at the GE junction, multiple tertiary contractions and poor motility, along with a small founded filling defect in the distal esophagus concerning for air versus mass.
Patient reports his symptoms started back in December of this year with the sensation of having food feeling getting stuck in his chest. Denies any prior dysphagia in the past or current odynophagia. Thought it may have been mild reflux and tried taking
Tums and Pepto Bismol as needed without any relief. Notes his symptoms continued to progress with worsening reflux and heartburn as well with intermittent chest discomfort and early satiety. Has had poor p.o intake due to this with mild nausea but
without any episodes of emesis. No other globus sensation or regurgitation. Only able to tolerate few small bites of solid food until he feels it in chest and feels full. No other difficulty with liquids. He denies ever having an EGD in the past.
Does note that since this time he has lost approximately 40 - 50 lbs since December. No other NSAIDs or significant alcohol use. He is not on any antiplatelets or anticoagulants. Follows closely with Oncology at [facility] where he was started on chemo
and immunotherapy after he was found to have RCC metastatic disease with mets to spine, pelvis, liver and lesion between pancreas/stomach in 03/2024. Currently, he is tolerating secretions and able to tolerate small sips of liquids.
Last colonoscopy at 79 y.o (5 yrs ago), reportedly normal. No prior EGD.
Past Medical History
Past Medical History: Other (HTN, HLD, BPH, hypothyroidism, hx of L Nephrectomy secondary to renal cell carcinoma c/b metastatic RCC with bone, liver, and lesions between pancreas/stomach (on Cabometyx and immunotherapy) c/b chronic ambulatory
dysfunction (walker/wheelchair dependent), depression)
Past Surgical History: Other (Bilateral inguinal hernia, septoplasty, and L nephrectomy secondary to RCC)
Social History
Tobacco: Former Smoker
Alcohol: None
Drug: None
Family History
Family History: Reviewed & Not Pertinent
Allergies / Home Medications
Allergy/AdvReac Type Severity Reaction Status Date / Time
Penicillins Allergy Unknown Verified 05/12/24 14:56
Sulfa (Sulfonamide Allergy Unknown Verified 05/12/24 14:56
Antibiotics)
�Medication �Instructions �Recorded
acetaminophen 325 mg tablet 650 mg PO Q6HPRN PRN mild pain 05/12/24
amlodipine 5 mg tablet 5 mg PO DAILY Blood Pressure 05/12/24
ascorbic acid (vitamin C) 500 mg 500 mg PO DAILY Supplement 05/12/24
tablet (Vitamin C)
aspirin 81 mg tablet,delayed 81 mg PO DAILY Blood Clot 05/12/24
release Prevention/Tx
atorvastatin 20 mg tablet 20 mg PO HS High Cholesterol 05/12/24
bisacodyl 10 mg rectal suppository 10 mg MD [id number] PRN constipation, 05/12/24
mom ineffective
cabozantinib 20 mg tablet 20 mg PO DAILY Cancer 05/12/24
(Cabometyx)
cholecalciferol (vitamin D3) 50 50 mcg PO DAILY Supplement 05/12/24
mcg (2,000 unit) tablet (Vitamin
D3)
fenofibrate nanocrystallized 145 145 mg PO DAILY Constipation 05/12/24
mg tablet
finasteride 5 mg tablet 5 mg PO DAILY Urinary Issue 05/12/24
folic acid 1 mg tablet 1 mg PO DAILY Supplement 05/12/24
levothyroxine 75 mcg tablet 75 mcg PO DAILY Thyroid 05/12/24
lidocaine 5 % topical patch 1 patch topical DAILY Pain 05/12/24
magnesium hydroxide 400 mg/5 mL 30 ml PO DAILYPRN PRN constipation 05/12/24
oral suspension (Milk of Magnesia)
methocarbamol 500 mg tablet 1,000 mg PO Q6HPRN PRN muscle 05/12/24
spasms
omega 2-buz-iwr-fish oil 1,200 mg 1,200 cap PO DAILY 05/12/24
(144 mg-216 mg) capsule (Fish Oil) Supplement/cholesterol
oxycodone 5 mg tablet 5 mg PO Q8HPRN PRN moderate pain 05/12/24
sodium phosphates 19 gram-7 118 ml MD DAILYPRN PRN constipation 05/12/24
gram/118 mL enema (Fleet Enema)
tamsulosin 0.4 mg capsule 0.8 mg PO NOON Urinary Issue 05/12/24
trazodone 100 mg tablet 100 mg PO HS Sleep 05/12/24
Review of Systems
-
All other systems: A 12 pt ROS was Negative except as stated above in HPI
Vital Signs
Temp Pulse Resp BP Pulse Ox
97.5 F 84 24 105/65 98
05/15/24 08:00 05/15/24 08:00 05/15/24 08:00 05/15/24 08:00 05/15/24 08:00
Physical Exam
Exam
General: Well Developed, Well Nourished, No Apparent Distress and Comfortable
HEENT: Moist Mucous Membranes
Respiratory: Clear and Non Labored Respirations
Cardiac: S1/S2 and Regular Rhythm
GI: Soft, Non Tender and Distended
Neuro: AO x 3 and Nonfocal/Grossly Intact
Psych: Calm
Results
WBC 5.0 10^3/uL (4.8-10.8) 05/15/24 05:37
Hgb 12.5 g/dL (13.0-18.0) L 05/15/24 05:37
Hct 37.6 % (39.0-52.0) L 05/15/24 05:37
MCV 86.0 fL (80.0-94.0) 05/15/24 05:37
Plt Count 200 10^3/uL (130-400) 05/15/24 05:37
Absolute Neuts (auto) 2.6 10^3/uL (1.4-6.5) 05/15/24 05:37
Sodium 136 mmol/L (135-145) 05/15/24 05:37
Potassium 5.1 mmol/L (3.5-5.1) 05/15/24 05:37
Chloride 103 mmol/L (98-107) 05/15/24 05:37
Carbon Dioxide 20 mmol/L (22-30) L 05/15/24 05:37
BUN 34 mg/dl (9-20) H 05/15/24 05:37
Creatinine 1.6 mg/dL (0.7-1.3) H 05/15/24 05:37
Calcium 8.6 mg/dl (8.4-10.2) 05/15/24 05:37
Total Bilirubin 1.5 mg/dl (0.2-1.3) H 05/15/24 05:37
AST 61 U/L (17-59) H 05/15/24 05:37
ALT 30 U/L (0-50) 05/15/24 05:37
Alkaline Phosphatase 83 U/L (38-126) 05/15/24 05:37
Diagnostic Image Results:
Esophagram 05/15/2024- Impression:
1. There is minimal contrast emptying from the esophagus into the stomach with findings suggesting a stricture at the GE junction.
2. There are multiple tertiary contractions and poor motility within the esophagus.
3. There is a small rounded filling defect in the distal esophagus. This could be a small air bubble but a mass is difficult to exclude. Endoscopy may be helpful.
Prior GI Procedures:
EGD: No prior EGD
Colonoscopy: Last colonoscopy 5 yrs ago at age 79, reporteldy normal
Assessment / Plan
-
Mr. Randle is a 84 y.o male with past medical history of HTN, HLD, BPH, hypothyroidism, hx of L Nephrectomy secondary to renal cell carcinoma c/b metastatic RCC with bone, liver, and lesions between pancreas/stomach (on Cabometyx and immunotherapy)
c/b chronic ambulatory dysfunction (walker/wheelchair dependent) who presented to the ED with urinary retention on 05/12 and incidentally noted to have dysphagia with abnormal esophagram concerning for stricture.
#Dysphagia
#Abml Esophagram (c/f stricture)
#Early Satiety
#Unintentional Weight Loss (50 lbs)
#Metastatic RCC (on chemo/immunotherapy) w/
#Liver, Bone Mets and #Lesion btwn pancreas/stomach
Impression: Patient with worsening dysphagia over the past 4-5 months along with early satiety and significant weight loss. History notable for metastatic RCC with mets to liver and bone along with lesion in between stomach and pancreas (unable to
locate or view prior imaging) diagnosed in March 2024. Esophagram 05/15/24 revealing significant stricture at GE junction with minimal contrast emptying from esophagus to stomach concerning for high-grade stricture. Etiology most suspicious for
malignancy secondary to known RCC either metastatic lesion versus external compression given his metastatic disease particularly given his worsening, progressive symptoms. Thus, making a peptic stricture and/or Schatzki's ring much less likely.
Doubt chemo-related and never received prior XRT. No previous EGD in the past. Otherwise, currently tolerating secretions without concern for impaction however would benefit from EGD for further evaluation.
Recommendations:
- Okay with small sips of clear liquids, keep NPO
- Extreme caution with pills- prefer to crush pills if able
- Empiric IV PPI 40 mg BiD
- Plan for EGD tomorrow, 05/16/2024, for further evaluation
- Will request OSH records regarding prior CT and/or other cross-sectional imaging given c/f lesion between pancreas and stomach
- Avoidance of all NSAIDs
- Rest of care per primary team
Data Reviewed
-
Radiology: Image Personally Visualized and interpreted and Report Reviewed by me
Old Records: Requested
-
-
Thank you for consultation and allowing me to participate in the patient's care. Please call the english as a second language instructor GI physician during the after hours with any questions or concerns.
[2024-05-15] MEDS: NSS 1000 IV (12:39)
[2024-05-15 12:47] VITALS: BP 99/68; PULSE 87; O2SAT 98
[2024-05-15 12:56] VITALS: BP 99/68; PULSE 87; O2SAT 98
--- NOTE | 2024-05-15 14:54 | CM ---
MEt with patient to do IA. He reports he lives at [facility] in [facility]. Later in conversation he said he has assist with some activities and staff give him medications. Left Vm at [facility] asking for clarification on level of care at [facility].
Patient states he uses w/c to self propel to meals indingin room. He has grab bars in shower and by toilet. He thinks he has been at [facility] for one month.
He reports he is under care of Dr. Brambila at [facility] for his cancer.
HE has 2 infusions.
He use to live in [facility] and has been to [facility] in past.
He would like to return to [facility].
It is unclear if he was receiving any PT OT services at [facility].
Spoke to son. Patient has been at [facility] for 2 weeks. Son reports [facility] was seeing him for PT and OT and maybe nursing.
Son confirms using walker to bathroom but majority of time in w/c. Able to do stand pivot transfers with grab bars in room.
Son is full POA and wishes us to communicate with him. Son is very supportive. Gave son phone for nurses station.
CM to send referral to [facility] .
[2024-05-15 16:10] VITALS: BP 109/58
[2024-05-15] MEDS: ANCEF 5 IV (18:04)
[2024-05-15] MEDS: DESYREL 100 MG PO (21:52)
[2024-05-15] MEDS: LIPITOR 20 MG PO (21:52)
[2024-05-15] MEDS: STERILE WATER FOR INJECTION IV (22:18)
[2024-05-15 23:51] VITALS: BP 108/63
[2024-05-16] VITALS (13 sets, daily range): BP systolic 12–129; BP diastolic 56–68
[2024-05-16] MEDS: ANCEF 5 IV ×3 (02:00→17:50)
[2024-05-16 06:17] LABS: Hematocrit 38.7 % (39.0-52.0); Hemoglobin 12.9 g/dL (13.0-18.0); Mean Corp Hgb Conc. 33.3 g/dL (33.0-37.0); Mean Corpuscular Hgb 29.7 pg (27.0-31.0); Mean Platelet Volume 9.3 fL (7.4-10.4); Platelet Count 182 10^3/uL (130-400); Red Blood Cell Count 4.35 10^6/uL (4.70-6.10); Red Cell Dist. Width 14.6 % (11.5-14.5); White Blood Cell Count 4.4 10^3/uL (4.8-10.8)
[2024-05-16 06:53] LABS: ALT (SGPT) 36 U/L (0-50); AST (SGOT) 69 U/L (17-59); Albumin 3.2 g/dl (3.5-5.0); Alkaline Phosphatase 92 U/L (38-126); Blood Urea Nitrogen 29 mg/dl (9-20); Calcium 8.4 mg/dl (8.4-10.2); Carbon Dioxide 16 mmol/L (22-30); Chloride 105 mmol/L (98-107); Direct Bilirubin 0.4 mg/dl (0.0-0.4); Estimated Creatinine Clearance 40 ml/min; Glucose 96 mg/dl (70-99); Magnesium 2.1 mg/dl (1.6-2.3); Potassium 4.7 mmol/L (3.5-5.1); Sodium 138 mmol/L (135-145); Total Bilirubin 1.2 mg/dl (0.2-1.3); Total Protein 6.1 g/dl (6.3-8.2); eGFR 49.87
[2024-05-16] MEDS: SYNTHROID 75 MCG PO (07:31)
[2024-05-16] MEDS: NSS (PRESERVATIVE FREE) 10 ML IV ×2 (08:13→20:02)
[2024-05-16] MEDS: HEPARIN 5000 UNITS SC ×2 (08:14→20:01)
[2024-05-16] MEDS: PROTONIX IV 40 MG IV ×2 (08:14→20:02)
[2024-05-16] MEDS: LIDOCAINE 4% PATCH TOPICAL ×2 (08:16→10:29)
[2024-05-16] MEDS: NORVASC PO (08:35)
[2024-05-16] MEDS: FOLVITE PO (08:35)
[2024-05-16] MEDS: ASPIR LOW (ENTERIC COATED) PO (08:35)
[2024-05-16] MEDS: PROSCAR PO (08:36)
[2024-05-16] MEDS: VITAMIN C PO (08:36)
[2024-05-16] MEDS: VITAMIN D3 (cholecalciferol) PO (08:36)
[2024-05-16] MEDS: DESENEX/MITRAZOL/ZEASORB 1 APPLIC TOPICAL ×2 (08:37→20:02)
--- NOTE | 2024-05-16 08:56 | W.PN.HOSP.TC ---
Today's Communication/Plan
-
see A/P
Assessment / Plan
Assessment / Plan
A/P:
# Acute urinary retention
# Solo kidney right
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
# Hx BPH
s/p Coburn in ER, purulent urine noted.
urine cultures x2 were negative, but given purulent urine noted from admission, would treat for complicated UTI
Changed Cefepime to Ancef , total 14 days
continue IVF
Urology consulted; plan for [place] at time of DC
continue Proscar/Finasteride
# MONA on CKD stage 4, obstructive uropathy
SCr 2.2 on admission, today at 1.4, unknown SCr baseline
continue gentle IVF 60 cc/hr
continue Coburn
follow BMP
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
GI plan for endoscopic evaluation
DC Tums prn, Cont PPI daily
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
hold current chemotherapy Cabometyx 20 mg daily
is on Immunotherapy every [address] Brambila [facility] oncology
# Chronic back pain with ambulatory dysfunction secondary to above RENAL CA METS , spine pelvis
continue oxycodone 5 mg every 8 hours as needed moderate pain, lidocaine patch lumbar spine
PT/OT recc SNF vs HH
# Essential HTN
continue amlodipine with holding parameter
# HLD
continue atorvastatin 20 mg at bedtime, fenofibrate 145 mg daily
# Hypothyroidism
continue levothyroxine 75 mcg p.o. daily
# Depression
continue trazodone 100 mg at bedtime
# KATLYN - noncompliant with CPAP since December weight loss 65 pound
DVT ppx: SC Heparin
Code: Full
DW RN
Anticipated Discharge: 24 - 48 hours
Subjective/Interval History
-
Date of Service: May 16, 2024
Objective Data
-
Labs:
Laboratory Results
05/16/24
05:48
WBC 4.4 L
Hgb 12.9 L
Hct 38.7 L
Plt Count 182
Sodium 138
Potassium 4.7
Chloride 105
Carbon Dioxide 16 L
BUN 29 H
Creatinine 1.4 H
Glucose 96
Calcium 8.4
Total Bilirubin 1.2
AST 69 H
ALT 36
Alkaline Phosphatase 92
Vital Signs:
Vital Signs
Temp Pulse Resp BP Pulse Ox
36.2 C 77 16 129/65 100
05/16/24 07:28 05/16/24 07:28 05/16/24 07:28 05/16/24 07:28 05/16/24 07:28
I&O
05/15/24 05/16/24 05/17/24
06:59 06:59 06:59
Intake Total 480 / 480 1500 / 1500
Output Total 450 / 450 550 / 550
Balance 30 / 30 950 / 950
Review of Systems
-
Abdomen/GI: Reports Other (difficulty with swallowing food)
Physical Exam
-
General: Well Developed, Well Nourished, No Apparent Distress, Comfortable and Conversant
HEENT: Normocephalic, Atraumatic, Nose Appears Normal and Ears Appear Normal
Respiratory: Clear to Auscultation and Non Labored Respirations; Negative Wheezes or Accessory Resp Muscle Use
Cardiac: Regular Rhythm and S1/S2
GI: Soft, Nontender, Nondistended and Normal Bowel Sounds
Genito-urinary: [place]
Musculoskeletal: No Edema
Neuro: Awake and Alert
Psych: Calm and Intact Judgement/Insight
Data Reviewed
-
Medical Tests (Nuc Med, Echo etc): Report Reviewed by me (barium swallow)
Labs: Labs Reviewed by me
[2024-05-16] MEDS: STERILE WATER FOR INJECTION IV ×2 (10:15→21:51)
[2024-05-16] MEDS: FLOMAX PO (13:14)
[2024-05-16] MEDS: NSS 1000 IV (17:49)
[2024-05-16] MEDS: LIPITOR 20 MG PO (21:51)
[2024-05-16] MEDS: DESYREL 100 MG PO (21:51)
[2024-05-17] MEDS: ANCEF 5 IV ×3 (02:00→17:48)
--- NOTE | 2024-05-17 03:15 | DOWNTIME ---
There was a [employer] Clerk Downtime on 05/17/2024 from 0100 to 05/17/2024 at 0300. Downtime documentation of patient's care, including medication administrations, has been reconciled in the electronic record per guidelines. Refer to the
patient's paper chart under the miscellaneous tab to see printed paper medication records and downtime forms.
[2024-05-17] MEDS: NSS 1000 IV (05:51)
[2024-05-17] MEDS: SYNTHROID PO (05:54)
[2024-05-17 07:22] VITALS: BP 98/70
[2024-05-17 07:30] LABS: Hematocrit 38.1 % (39.0-52.0); Hemoglobin 12.6 g/dL (13.0-18.0); Mean Corp Hgb Conc. 33.1 g/dL (33.0-37.0); Mean Corpuscular Volume 87.6 fL (80.0-94.0); Mean Platelet Volume 9.6 fL (7.4-10.4); Platelet Count 189 10^3/uL (130-400); Red Blood Cell Count 4.35 10^6/uL (4.70-6.10); Red Cell Dist. Width 14.8 % (11.5-14.5); White Blood Cell Count 4.8 10^3/uL (4.8-10.8)
[2024-05-17 08:00] LABS: ALT (SGPT) 29 U/L (0-50); AST (SGOT) 69 U/L (17-59); Albumin 3.2 g/dl (3.5-5.0); Alkaline Phosphatase 97 U/L (38-126); Blood Urea Nitrogen 26 mg/dl (9-20); Carbon Dioxide 19 mmol/L (22-30); Chloride 106 mmol/L (98-107); Direct Bilirubin 0.4 mg/dl (0.0-0.4); Estimated Creatinine Clearance 38 ml/min; Glucose 96 mg/dl (70-99); Potassium 4.8 mmol/L (3.5-5.1); Sodium 140 mmol/L (135-145); Total Bilirubin 1.1 mg/dl (0.2-1.3); Total Protein 6.1 g/dl (6.3-8.2); eGFR 45.91
[2024-05-17] MEDS: NSS (PRESERVATIVE FREE) 10 ML IV ×2 (09:21→21:05)
[2024-05-17] MEDS: VITAMIN D3 (cholecalciferol) 50 MCG PO (09:21)
[2024-05-17] MEDS: PROTONIX IV 40 MG IV ×2 (09:21→21:06)
[2024-05-17] MEDS: HEPARIN 5000 UNITS SC ×2 (09:21→21:04)
[2024-05-17] MEDS: VITAMIN C 500 MG PO (09:22)
[2024-05-17] MEDS: PROSCAR 5 MG PO (09:22)
[2024-05-17] MEDS: LIDOCAINE 4% PATCH 1 PATCH TOPICAL (09:22)
[2024-05-17] MEDS: FOLVITE 1 MG PO (09:22)
[2024-05-17] MEDS: ASPIR LOW (ENTERIC COATED) 81 MG PO (09:22)
[2024-05-17] MEDS: NORVASC PO (09:31)
[2024-05-17] MEDS: DESENEX/MITRAZOL/ZEASORB 1 APPLIC TOPICAL ×2 (09:33→21:04)
[2024-05-17] MEDS: STERILE WATER FOR INJECTION IV (09:34)
--- NOTE | 2024-05-17 10:13 | W.PN.HOSP.TC ---
Today's Communication/Plan
-
see A/P
Assessment / Plan
Assessment / Plan
A/P:
# Acute urinary retention
# Solo kidney right
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
# Hx BPH
s/p Coburn in ER, purulent urine noted.
urine cultures x2 were negative, but given purulent urine noted from admission, would treat for complicated UTI
Changed Cefepime to Ancef, total 14 days
continue IVF
Urology consulted; plan to cont Coburn at time of DC
continue Proscar/Finasteride
# MONA on CKD stage 4, obstructive uropathy
SCr 2.2 on admission, today at 1.5, unknown SCr baseline
observe off additional IVF
continue Coburn
follow BMP
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
s/p EGD 05/16: Abnormal esophageal motility noted, Puckering at the lower esophageal sphincter with tight mucosal folds. Esophagus biopsied. Also incidental finding of duodenal ulcer with a clean ulcer base
Suspect GE junction stricture due to esophageal motility disorder (achalasia versus diffuse esophageal spasm, etc).
Cont clear liquid diet and ADAT per SPL eval
Cont PPI 40 mg BID for 8 weeks, then 40 mg once daily
Follow path reports with GI outpt
Consider esophageal motility testing outpatient
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
hold current chemotherapy Cabometyx 20 mg daily
is on Immunotherapy every [address] Brambila [facility] oncology
# Chronic back pain with ambulatory dysfunction secondary to above RENAL CA METS , spine pelvis
continue oxycodone 5 mg every 8 hours as needed moderate pain, lidocaine patch lumbar spine
PT/OT recc SNF vs HH
# Essential HTN
continue amlodipine with holding parameter
# HLD
continue atorvastatin 20 mg at bedtime, fenofibrate 145 mg daily
# Hypothyroidism
continue levothyroxine 75 mcg p.o. daily
# Depression
continue trazodone 100 mg at bedtime
# KATLYN - noncompliant with CPAP since December weight loss 65 pound
DVT ppx: SC Heparin
Code: Full
Dispo: HH vs SNF
DW RN
DW son on the phone. Extensive discussion. Answered all questions
total time spent 51 min
Anticipated Discharge: Within 24 hours
Subjective/Interval History
-
Date of Service: May 17, 2024
Objective Data
-
Labs:
Laboratory Results
05/17/24
06:46
WBC 4.8
Hgb 12.6 L
Hct 38.1 L
Plt Count 189
Sodium 140
Potassium 4.8
Chloride 106
Carbon Dioxide 19 L
BUN 26 H
Creatinine 1.5 H
Glucose 96
Calcium 8.0 L
Total Bilirubin 1.1
AST 69 H
ALT 29
Alkaline Phosphatase 97
Vital Signs:
Vital Signs
Temp Pulse Resp BP Pulse Ox
36.8 C 87 18 98/70 97
05/17/24 07:22 05/17/24 07:22 05/17/24 07:22 05/17/24 07:22 05/17/24 07:22
I&O
05/16/24 05/17/24 05/18/24
06:59 06:59 06:59
Intake Total 1500 / 1500 720 / 720
Output Total 550 / 550 900 / 900
Balance 950 / 950 -180 / -180
Review of Systems
-
Abdomen/GI: Reports Other (difficulty with swallowing food)
Physical Exam
-
General: Well Developed, Well Nourished, No Apparent Distress, Comfortable and Conversant
HEENT: Normocephalic, Atraumatic, Nose Appears Normal and Ears Appear Normal
Respiratory: Clear to Auscultation and Non Labored Respirations; Negative Wheezes or Accessory Resp Muscle Use
Cardiac: Regular Rhythm and S1/S2
GI: Soft, Nontender, Nondistended and Normal Bowel Sounds
Genito-urinary: Coburn
Musculoskeletal: No Edema
Neuro: Awake and Alert
Psych: Calm and Intact Judgement/Insight
Data Reviewed
-
Medical Tests (Nuc Med, Echo etc): Report Reviewed by me (barium swallow, EGD) and Discussed with Family
Labs: Labs Reviewed by me
--- NOTE | 2024-05-17 10:22 | W.PN.GI.CBS2 ---
Addendum entered and electronically signed by Ricky Mcgowan, DO 05/17/24 14:00:
UPDATE: After working with COVERSTITCH MACHINE OPERATOR this AM, patient still having difficulty with liquids and unable to tolerate solids. Was hoping for some relief after EGD with some autodilation with passage of scope. If patient is to remain inpatient can consider EGD
with empiric injection of botox at LES for suspected achalasia. Unable to reach son this afternoon, however patient agreeable to repeat procedure later this week (ie on Wednesday) pending clinical course. Discussed with hospitalist.
Original Note:
Today's Communication / Plan
-
S/p EGD with concern for underlying esophageal motility disorder (achalasia versus pseudoachalasia) along with incidental duodenal ulcer. PPI 40 mg BiD. COVERSTITCH MACHINE OPERATOR consult for further dietary recommendations and assistance with advancing diet. Rest of care
as outlined below.
Assessment / Plan
-
Mr. Randle is a 84 y.o male with past medical history of HTN, HLD, BPH, hypothyroidism, hx of L Nephrectomy secondary to renal cell carcinoma c/b metastatic RCC with bone, liver, and lesions between pancreas/stomach (on Cabometyx and immunotherapy)
c/b chronic ambulatory dysfunction (walker/wheelchair dependent) who presented to the ED with urinary retention on 05/12 and incidentally noted to have dysphagia with abnormal esophagram concerning for stricture versus underlying esophageal motility
disorder.
#Dysphagia
#Abml Esophagram (c/f stricture)
#Early Satiety
#Unintentional Weight Loss (50 lbs)
#Metastatic RCC (on chemo/immunotherapy) w/
#Liver, Bone Mets and #Lesion btwn pancreas/stomach
Impression: Patient with worsening dysphagia over the past several months along with early satiety, intermittent chest pain/discomfort and significant weight loss. History notable for metastatic RCC with mets to liver and bone along with lesion in
between stomach and pancreas (unable to locate or view prior imaging) diagnosed in March 2024. Esophagram 05/15/24 revealing minimal contrast emptying from the esophagus into the stomach (concerning for stricture) along with tertiary contractions
and poor motility within the esophagus and a small, founded filling defect in the distal esophagus (c/f air bubble, but cannot rule out mass).
S/p EGD 05/16/2024: with dilated proximal-middle esophagus, esophageal diverticula, abnormal atrophic and pale appearing mucosa along with a puckered LES and absent peristalsis all concerning for an underlying esophageal motility disorder (ie
achalasia versus pseudoachalasia), along with an incidental cratered duodenal ulcer (FC III) within first portion of duodenum (s/p biopsies and one hemoclip)
Recommendations:
- Okay for CLD and/or full liquids this AM. May advance diet as outlined by COVERSTITCH MACHINE OPERATOR. Would not advance beyond soft, mechanical diet
- Continue aspiration precautions while inpatient. Elevate HOB with meals, avoid eating while laying down. Encourage small sips of liquid in between solids
- Pantoprazole 40 mg BiD for 8 weeks, then at least once daily
- Recommend COVERSTITCH MACHINE OPERATOR consult for further evaluation as well
- Ultimately, patient may benefit from further esophageal motility testing as an outpatient given concern for achalasia vs other underlying esophageal motility disorder. Patient reports feeling overwhelmed by this especially with his metastatic
renal cell carcinoma. Did also discuss repeating an EGD with empiric botox injection as an outpatient due to suspected achalasia verus pseudoachalasia. Generally, would prefer to pursue further motility testing but given his advanced age and cancer
history doubt patient is a candidate for more advanced therapies (ie potential POEM, LHM, etc) if achalasia were to be confirmed. Given this, not entirely clear how this would affect his overall management and overall big picture. He is also adamant
that he would never want a feeding tube in the future
- Discussed at length at bedside, can coordinate repeat EGD botox as outpatient versus pursuing esophageal manometry if patient decides
- Await pathology results from EGD. Can follow up with patient as an outpatient to further discuss next steps
- Counseled patient to avoid all NSAIDs
- Rest of care per primary team
Subjective
Subjective
Date of Service: May 17, 2024
- S/p EGD 05/16 with dilated esophagus, esophageal diverticula, abnormal atrophic and pale appearing mucosa along with a puckered LES and absent peristalsis all concerning for an underlying esophageal motility disorder (ie achalasia versus
pseudoachalasia), along with an incidental, cratered duodenal ulcer (s/p biopsies and one hemoclip)
- Otherwise, no acute events overnight
Reports feeling 'the same' after procedure. Explained to patient again this morning that there was no amenable lesion to perform dilation or clear obvious stricture, but concerning for esophageal motility disorder. Denies any chest pain or
regurgitation currently, but still having dysphagia to liquids. No abdominal pain, nausea or vomiting. Had one brown loose BM this AM.
Objective
Data Reviewed
Laboratory Data:
Laboratory Results
05/17/24 06:46
05/17/24 06:46
Laboratory Results
Magnesium 2.1 mg/dl (1.6-2.3) 05/16/24 05:48
Total Bilirubin 1.1 mg/dl (0.2-1.3) 05/17/24 06:46
AST 69 U/L (17-59) H 05/17/24 06:46
ALT 29 U/L (0-50) 05/17/24 06:46
Alkaline Phosphatase 97 U/L (38-126) 05/17/24 06:46
Vital Signs and I&O:
Vital Signs
Temp Pulse Resp BP Pulse Ox
98.3 F 87 18 98/70 97
05/17/24 07:22 05/17/24 07:22 05/17/24 07:22 05/17/24 07:22 05/17/24 07:22
I&O
05/16/24 05/17/24 05/18/24
06:59 06:59 06:59
Intake Total 1500 / 1500 720 / 720
Output Total 550 / 550 900 / 900
Balance 950 / 950 -180 / -180
Physical Exam
Physical Exam
HEENT: Anicteric and Moist mucous membranes
Cardiology: Normal Sinus Rhythm
Pulmonary: Clear
GI: Soft, Distended and Non Tender
Extremities: Warm
Neuro: Non Focal
--- NOTE | 2024-05-17 10:36 | PTOTSP ---
Dysphagia Evaluation
Oral/pharyngeal swallow suspected to be functional with PO assessed. Patient with known esophageal dysphagia with bottom up aspiration risk factors. See patient care note for details.
Recommend:
1. Thin Liquids
2. Defer solid recommendation to gastroenterology given esophageal dysphagia/findings (i.e., concern for achalasia vs pseudoachalasia)
3. Medications - crushed and mixed in liquids or puree if medically cleared
4. Strategies: upright to 90 degrees, small sips/bites, slow rate, small frequent meals, alternate sips/bites, remain upright for 30 minutes or greater after meals as a reflux precaution
5. Continue to follow with dietitian given limited oral intake secondary to esophageal dysphagia
No further dysphagia therapy with an TYPE INSPECTOR warranted at this time. Discussed results/recommendations with patient, nurse, and TELEVISION OPERATOR with GI.
[2024-05-17 13:05] VITALS: BP 101/65; PULSE 74; O2SAT 97
[2024-05-17] MEDS: FLOMAX 0.8 MG PO (13:10)
--- NOTE | 2024-05-17 14:19 | CM ---
Reviewed chart, reviewed PT, may may need SNF prior to returning back to [facility]. Will call family/talk to patient for SNF selections in the event rehab is needed.
Plan: Case management will continue to follow and assist with discharge planning. SNF vrs. Back to [facility].
[2024-05-17 15:33] VITALS: BP 112/76
--- NOTE | 2024-05-17 15:36 | W.PN.URO.CBU ---
Today's Communication / Plan
-
home when medically cleared with driscoll
Assessment / Plan
-
uti rettnion in immuno supessed pt plab[n per id and hospital;ist but uroogicallt keep driscoll and see if pt can manage at home may need nhp
Diagnosis
-
Date of Service: May 17, 2024
-
Patient Diagnosis:
Post Op Day:
Patient Diagnosis:
Post Op Day:
Patient Diagnosis:
Post Op Day:
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
Post Op Day:
Subjective
-
no void
Objective
-
Vital Signs
Temp Pulse Resp BP Pulse Ox
97.7 F 98 18 112/76 96
05/17/24 15:33 05/17/24 15:33 05/17/24 15:33 05/17/24 15:33 05/17/24 15:33
Intake and Output
05/16/24 05/17/24 05/18/24
06:59 06:59 06:59
Intake Total 1500 / 1500 720 / 720
Output Total 550 / 550 900 / 900
Balance 950 / 950 -180 / -180
Intake:
Oral fluids 780 / 780 720 / 720
IV fluids (Total) 720 / 720
Output:
Urine, Driscoll 550 / 550 900 / 900
Laboratory Results
05/17/24 06:46
05/17/24 06:46
Review of Systems
-
: Difficulty Voiding
Physical Exam
-
General - well developed, well nourished, no acute distress
Chest - clear bilaterally
Abdomen - soft, non-tender, positive bowel sounds, no CVAT, no incisional pain or distention
Genitalia - normal
Rectal - normal
Skin - warm & dry with no rash
Neuro - AOx3, no motor deficits
Extremities - no clubbing, no cyanosis, no edema
Incision - clean, dry
Dressing - clean, dry, intact
[2024-05-17] MEDS: LIPITOR 20 MG PO (21:08)
[2024-05-17] MEDS: DESYREL 100 MG PO (21:48)
[2024-05-17 23:20] VITALS: BP 105/58
[2024-05-18] MEDS: ANCEF 5 IV ×3 (02:12→18:17)
[2024-05-18] MEDS: SYNTHROID 75 MCG PO (06:33)
[2024-05-18 06:52] LABS: Hematocrit 36.5 % (39.0-52.0); Hemoglobin 12.2 g/dL (13.0-18.0); Mean Corp Hgb Conc. 33.4 g/dL (33.0-37.0); Mean Corpuscular Hgb 29.6 pg (27.0-31.0); Mean Corpuscular Volume 88.6 fL (80.0-94.0); Mean Platelet Volume 9.2 fL (7.4-10.4); Platelet Count 160 10^3/uL (130-400); Red Blood Cell Count 4.12 10^6/uL (4.70-6.10); White Blood Cell Count 4.2 10^3/uL (4.8-10.8)
[2024-05-18 07:00] VITALS: BP 117/65
[2024-05-18 07:49] LABS: ALT (SGPT) 24 U/L (0-50); AST (SGOT) 63 U/L (17-59); Alkaline Phosphatase 86 U/L (38-126); Blood Urea Nitrogen 20 mg/dl (9-20); Calcium 7.9 mg/dl (8.4-10.2); Carbon Dioxide 15 mmol/L (22-30); Chloride 108 mmol/L (98-107); Direct Bilirubin 0.3 mg/dl (0.0-0.4); Estimated Creatinine Clearance 51 ml/min; Glucose 109 mg/dl (70-99); Potassium 4.3 mmol/L (3.5-5.1); Sodium 138 mmol/L (135-145); Total Protein 5.7 g/dl (6.3-8.2); eGFR > 60.00
[2024-05-18] MEDS: NSS (PRESERVATIVE FREE) 10 ML IV ×2 (08:16→19:57)
[2024-05-18] MEDS: PROTONIX IV 40 MG IV ×2 (08:16→19:57)
[2024-05-18] MEDS: HEPARIN 5000 UNITS SC ×2 (08:17→19:55)
[2024-05-18] MEDS: FOLVITE 1 MG PO (08:17)
[2024-05-18] MEDS: ASPIR LOW (ENTERIC COATED) 81 MG PO (08:17)
[2024-05-18] MEDS: LIDOCAINE 4% PATCH TOPICAL (08:17)
[2024-05-18] MEDS: VITAMIN D3 (cholecalciferol) 50 MCG PO (08:18)
[2024-05-18] MEDS: NORVASC PO (08:18)
[2024-05-18] MEDS: VITAMIN C 500 MG PO (08:18)
[2024-05-18] MEDS: PROSCAR 5 MG PO (08:18)
[2024-05-18] MEDS: DESENEX/MITRAZOL/ZEASORB 1 APPLIC TOPICAL ×2 (08:19→20:08)
--- NOTE | 2024-05-18 09:37 | W.PN.GI.CBS2 ---
Addendum entered and electronically signed by Ashanti Marie DO 05/18/24 13:09:
Patient seen and examined independently of MER[facility]. I agree with her note with my additions below
Patient is tolerating Ensure and applesauce today. N.p.o. after midnight for EGD with Botox and dilation
He wants to focus on quality of life which I agree with. He is not a good surgical candidate
Other option at this does not work could at least attempt a pneumatic dilation outpatient which is larger balloon
Continue twice daily PPI for duodenal ulcer
Addendum entered and electronically signed by MERCY English 05/18/24 10:46:
oncologist Dr. Hunter in [place] [phone].
Addendum entered and electronically signed by MERCY English 05/18/24 10:45:
I had long discussion with patient carroll Thibodeaux and updated on EGD and plan. Discussed input from Dr. Mcgowan. Son agrees with plan for diet advancement and possible botox in AM. We also discussed option of peg tube though pt states he would not
want. Would need recent imaging from oncology to further define 'tumor between stomach and pancreas ' and ensure no ascites it that can be considered . I requested records from oncology for records. Son is available via text or phone with message
left to call back if needed as currently on [facility] for job -- [phone]
Original Note:
Today's Communication / Plan
-
pt with some improved tolerance with pills and applesauce last PM and today but slow eating -- pt would like to trial further pureed diet
will add pureed diet with ensure clear BID
reviewed with speech therapy 05/17 -- oral/pharnygeal swallow noted functional
Discussed again at bedside with patient , can coordinate repeat EGD botox as outpatient versus pursuing esophageal manometry if patient decides
tentative NPO in AM for possible EGD with botox pending diet tolerance
- Continue aspiration precautions while inpatient. Elevate HOB with meals, avoid eating while laying down. Encourage small sips of liquid in between solids
- Pantoprazole 40 mg BiD for 8 weeks, then at least once daily
-EGD path pending
-cont to avoid all NSAIDs
appreciate Dr.Stone brown
- Ultimately, patient may benefit from further esophageal motility testing as an outpatient given concern for achalasia vs other underlying esophageal motility disorder. Patient reports feeling overwhelmed by this especially with his metastatic
renal cell carcinoma. Did also discuss repeating an EGD with empiric botox injection as an outpatient due to suspected achalasia verus pseudoachalasia. Generally, would prefer to pursue further motility testing but given his advanced age and cancer
history doubt patient is a candidate for more advanced therapies (ie potential POEM, LHM, etc) if achalasia were to be confirmed. Given this, not entirely clear how this would affect his overall management and overall big picture. He is also adamant
that he would never want a feeding tube in the future
Assessment / Plan
-
Mr. Randle is a 84 y.o male with past medical history of HTN, HLD, BPH, hypothyroidism, hx of L Nephrectomy secondary to renal cell carcinoma c/b metastatic RCC with bone, liver, and lesions between pancreas/stomach (on Cabometyx and immunotherapy)
c/b chronic ambulatory dysfunction (walker/wheelchair dependent) who presented to the ED with urinary retention on 05/12 and incidentally noted to have dysphagia with abnormal esophagram concerning for stricture versus underlying esophageal motility
disorder.
#Dysphagia
#Abnl Esophagram (c/f stricture)
#Early Satiety
#Unintentional Weight Loss (50 lbs)
#Metastatic RCC (on chemo/immunotherapy) w/
#Liver, Bone Mets and #Lesion btwn pancreas/stomach
Impression: Patient with worsening dysphagia over the past several months along with early satiety, intermittent chest pain/discomfort and significant weight loss. History notable for metastatic RCC with mets to liver and bone along with lesion in
between stomach and pancreas (unable to locate or view prior imaging) diagnosed in March 2024. Esophagram 05/15/24 revealing minimal contrast emptying from the esophagus into the stomach (concerning for stricture) along with tertiary contractions
and poor motility within the esophagus and a small, founded filling defect in the distal esophagus (c/f air bubble, but cannot rule out mass).
S/p EGD 05/16/2024: with dilated proximal-middle esophagus, esophageal diverticula, abnormal atrophic and pale appearing mucosa along with a puckered LES and absent peristalsis all concerning for an underlying esophageal motility disorder (ie
achalasia versus pseudoachalasia), along with an incidental cratered duodenal ulcer (FC III) within first portion of duodenum (s/p biopsies and one hemoclip)
Recommendations:
pt with some improved tolerance with pills and applesauce last PM and today but slow eating -- pt would like to trial further pureed diet
will add pureed diet with ensure clear BID
reviewed with speech therapy 05/17 -- oral/pharnygeal swallow noted functional
Discussed again at bedside with patient , can coordinate repeat EGD botox as outpatient versus pursuing esophageal manometry if patient decides
tentative NPO in AM for possible EGD with botox pending diet tolerance
- Continue aspiration precautions while inpatient. Elevate HOB with meals, avoid eating while laying down. Encourage small sips of liquid in between solids
- Pantoprazole 40 mg BiD for 8 weeks, then at least once daily
-EGD path pending
-cont to avoid all NSAIDs
appreciate Dr.Stone brown
- Ultimately, patient may benefit from further esophageal motility testing as an outpatient given concern for achalasia vs other underlying esophageal motility disorder. Patient reports feeling overwhelmed by this especially with his metastatic
renal cell carcinoma. Did also discuss repeating an EGD with empiric botox injection as an outpatient due to suspected achalasia verus pseudoachalasia. Generally, would prefer to pursue further motility testing but given his advanced age and cancer
history doubt patient is a candidate for more advanced therapies (ie potential POEM, LHM, etc) if achalasia were to be confirmed. Given this, not entirely clear how this would affect his overall management and overall big picture. He is also adamant
that he would never want a feeding tube in the future
Subjective
Subjective
Date of Service: May 18, 2024
on clear diet with supplement -- pt report improved tolerance of applesauce with pills last PM and this am but per staff slow eating
Objective
Data Reviewed
Laboratory Data:
Laboratory Results
05/18/24 06:27
05/18/24 06:27
Laboratory Results
Magnesium 2.1 mg/dl (1.6-2.3) 05/16/24 05:48
Total Bilirubin 1.0 mg/dl (0.2-1.3) 05/18/24 06:27
AST 63 U/L (17-59) H 05/18/24 06:27
ALT 24 U/L (0-50) 05/18/24 06:27
Alkaline Phosphatase 86 U/L (38-126) 05/18/24 06:27
Vital Signs and I&O:
Vital Signs
Temp Pulse Resp BP Pulse Ox
97.9 F 77 15 117/65 96
05/18/24 07:00 05/18/24 07:00 05/18/24 07:00 05/18/24 07:00 05/18/24 07:00
I&O
05/17/24 05/18/24 05/19/24
06:59 06:59 06:59
Intake Total 720 / 720 630 / 630
Output Total 900 / 900 650 / 650
Balance -180 / -180 -20 / -20
Physical Exam
Physical Exam
HEENT: Anicteric and Moist mucous membranes
Cardiology: Normal Sinus Rhythm
Pulmonary: Clear
GI: Soft, Non Distended and Non Tender
Neuro: Non Focal
--- NOTE | 2024-05-18 10:20 | W.PN.HOSP.TC ---
Today's Communication/Plan
-
see A/P
Assessment / Plan
Assessment / Plan
A/P:
# Acute urinary retention
# Solo kidney right
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
# Hx BPH
s/p Coburn in ER, purulent urine noted.
urine cultures x2 were negative, but given purulent urine noted from admission, would treat for complicated UTI
Changed Cefepime to Ancef, total 14 days
continue IVF
Urology consulted; plan to cont Coburn at time of DC
continue Proscar/Finasteride
# MONA on CKD stage 4, obstructive uropathy
SCr 2.2 on admission, today at 1.1, unknown SCr baseline
Off additional IVF
continue Coburn
follow BMP
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
s/p EGD 05/16: Abnormal esophageal motility noted, Puckering at the lower esophageal sphincter with tight mucosal folds. Esophagus biopsied. Also incidental finding of duodenal ulcer with a clean ulcer base
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
Follow path report
Diet advanced to pureed with ensure clear BID
GI planning for possible EGD Fri 05/19 with Botox pending diet tolerance
Cont PPI 40 mg BID for 8 weeks, then 40 mg once daily,
Consider esophageal motility testing outpatient
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
hold current chemotherapy Cabometyx 20 mg daily
is on Immunotherapy every [address] Brambila [facility] oncology
# Chronic back pain with ambulatory dysfunction secondary to above RENAL CA METS , spine pelvis
continue oxycodone 5 mg every 8 hours as needed moderate pain, lidocaine patch lumbar spine
PT/OT recc SNF vs HH
# Essential HTN
continue amlodipine with holding parameter
# HLD
continue atorvastatin 20 mg at bedtime, fenofibrate 145 mg daily
# Hypothyroidism
continue levothyroxine 75 mcg p.o. daily
# Depression
continue trazodone 100 mg at bedtime
# KATLYN - noncompliant with CPAP since December weight loss 65 pound
DVT ppx: SC Heparin
Code: Full
Dispo: HH vs SNF
DW RN
DW son on the phone.
Anticipated Discharge: 24 - 48 hours
Subjective/Interval History
-
Date of Service: May 18, 2024
Objective Data
-
Labs:
Laboratory Results
05/18/24
06:27
WBC 4.2 L
Hgb 12.2 L
Hct 36.5 L
Plt Count 160
Sodium 138
Potassium 4.3
Chloride 108 H
Carbon Dioxide 15 L
BUN 20
Creatinine 1.1
Glucose 109 H
Calcium 7.9 L
Total Bilirubin 1.0
AST 63 H
ALT 24
Alkaline Phosphatase 86
Vital Signs:
Vital Signs
Temp Pulse Resp BP Pulse Ox
36.6 C 77 15 117/65 96
05/18/24 07:00 05/18/24 07:00 05/18/24 07:00 05/18/24 07:00 05/18/24 07:00
I&O
05/17/24 05/18/24 05/19/24
06:59 06:59 06:59
Intake Total 720 / 720 630 / 630
Output Total 900 / 900 650 / 650
Balance -180 / -180 -20 / -20
Review of Systems
-
Abdomen/GI: Reports Other (difficulty with swallowing food)
Physical Exam
-
General: Well Developed, Well Nourished, No Apparent Distress, Comfortable and Conversant
HEENT: Normocephalic, Atraumatic, Nose Appears Normal and Ears Appear Normal
Respiratory: Clear to Auscultation and Non Labored Respirations; Negative Wheezes or Accessory Resp Muscle Use
Cardiac: Regular Rhythm and S1/S2
GI: Soft, Nontender, Nondistended and Normal Bowel Sounds
Genito-urinary: Coburn
Musculoskeletal: No Edema
Neuro: Awake and Alert
Psych: Calm and Intact Judgement/Insight (somewhat)
Data Reviewed
-
Medical Tests (Nuc Med, Echo etc): Report Reviewed by me (barium swallow, EGD) and Discussed with Family
Labs: Labs Reviewed by me
[2024-05-18] MEDS: FLOMAX 0.8 MG PO (12:49)
--- NOTE | 2024-05-18 14:32 | CM ---
Addendum entered by ELIDA Munoz 05/18/24 15:52:
Received call back from Ning from [facility] who stated that they will be able to support the scope of patient's needs, including the driscoll, but a nurse will need to come to assess patient prior to his return to determine where they will put him
in their community. She stated to call [phone] when he is close to d/c.
Original Note:
Reviewed chart, met with patient to discuss discharge planning. Patient stated that he is overwhelmed and asked that CM defer to his son. Placed a call to patient's son (lives out in [place]). Patient's son stated that he does not want patient to
transfer to a SNF prior to transferring back to [facility]. Per therapy notes, patient is close to baseline. He will leave with driscoll. Advised patient's son, that [facility] may request SNF before coming back. He stated that he will speak with them, if
that is the case.
Placed a call to [facility] and call was transferred to patient's nurses station, however had to leave a voice mail message. Left all contact information and requested return call.
Patient's son stated that patient was current with [facility] and he wants resumption. Will confirm referral sent.
Plan: Case management will continue to follow and assist with discharge planning. Hopeful transfer back to [facility] with driscoll cath and additional support if needed.
[2024-05-18 15:00] VITALS: BP 105/67
--- NOTE | 2024-05-18 16:42 | W.PN.URO.CBU ---
Today's Communication / Plan
-
transfer to home wth driscoll when medically stble
Assessment / Plan
-
uti rettnion in immuno supessed pt plab[n per id and hospital;ist but uroogicallt keep driscoll and see if pt can manage at home may need nhp
Diagnosis
-
Date of Service: May 18, 2024
-
Patient Diagnosis:
Post Op Day:
Patient Diagnosis:
Post Op Day:
Patient Diagnosis:
Post Op Day:
Patient Diagnosis:
Post Op Day:
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
Post Op Day:
Subjective
-
trouble voiding
Objective
-
Vital Signs
Temp Pulse Resp BP Pulse Ox
97.3 F 73 18 105/67 98
05/18/24 15:00 05/18/24 15:00 05/18/24 15:00 05/18/24 15:00 05/18/24 15:00
Intake and Output
05/17/24 05/18/24 05/19/24
06:59 06:59 06:59
Intake Total 720 / 720 630 / 630
Output Total 900 / 900 650 / 650
Balance -180 / -180 -20 / -20
Intake:
Oral fluids 720 / 720 630 / 630
Output:
Urine, Driscoll 900 / 900 650 / 650
Laboratory Results
05/18/24 06:27
05/18/24 06:27
Review of Systems
-
: Difficulty Voiding
Physical Exam
-
General - well developed, well nourished, no acute distress
Chest - clear bilaterally
Abdomen - soft, non-tender, positive bowel sounds, no CVAT, no incisional pain or distention
Genitalia - normal
Rectal - normal
Skin - warm & dry with no rash
Neuro - AOx3, no motor deficits
Extremities - no clubbing, no cyanosis, no edema
Incision - clean, dry
Dressing - clean, dry, intact
Care Review
Data Reviewed
Discussed with: Nursing
[2024-05-18] MEDS: LIPITOR 20 MG PO (21:28)
[2024-05-18] MEDS: DESYREL 100 MG PO (21:59)
[2024-05-18 23:14] VITALS: BP 117/68
[2024-05-19] VITALS (8 sets, daily range): BP systolic 14–128; BP diastolic 56–91; PULSE 86; O2SAT 97–98
[2024-05-19] MEDS: ANCEF 5 IV ×3 (01:39→17:00)
[2024-05-19 06:21] LABS: Hematocrit 35.6 % (39.0-52.0); Mean Corp Hgb Conc. 33.7 g/dL (33.0-37.0); Mean Corpuscular Hgb 29.1 pg (27.0-31.0); Mean Corpuscular Volume 86.2 fL (80.0-94.0); Mean Platelet Volume 9.1 fL (7.4-10.4); Platelet Count 155 10^3/uL (130-400); Red Blood Cell Count 4.13 10^6/uL (4.70-6.10); Red Cell Dist. Width 14.9 % (11.5-14.5); White Blood Cell Count 3.9 10^3/uL (4.8-10.8)
[2024-05-19 06:32] LABS: PT 15.2 Sec (11.4-14.6)
[2024-05-19 06:50] LABS: Blood Urea Nitrogen 18 mg/dl (9-20); Carbon Dioxide 18 mmol/L (22-30); Chloride 106 mmol/L (98-107); Estimated Creatinine Clearance 56 ml/min; Glucose 112 mg/dl (70-99); Potassium 4.1 mmol/L (3.5-5.1); Sodium 137 mmol/L (135-145); eGFR > 60.00
[2024-05-19] MEDS: SYNTHROID PO ×2 (07:58→08:42)
[2024-05-19] MEDS: ASPIR LOW (ENTERIC COATED) PO (08:02)
[2024-05-19] MEDS: DESENEX/MITRAZOL/ZEASORB 1 APPLIC TOPICAL ×2 (08:02→20:27)
[2024-05-19] MEDS: FOLVITE PO (08:02)
[2024-05-19] MEDS: PROSCAR PO (08:03)
[2024-05-19] MEDS: VITAMIN C PO (08:03)
[2024-05-19] MEDS: NORVASC PO (08:03)
[2024-05-19] MEDS: NSS (PRESERVATIVE FREE) 10 ML IV ×2 (08:03→20:27)
[2024-05-19] MEDS: LIDOCAINE 4% PATCH TOPICAL (08:03)
[2024-05-19] MEDS: VITAMIN D3 (cholecalciferol) PO (08:03)
[2024-05-19] MEDS: PROTONIX IV 40 MG IV ×2 (08:04→20:26)
[2024-05-19] MEDS: HEPARIN 5000 UNITS SC ×2 (08:04→20:27)
--- NOTE | 2024-05-19 08:40 | W.PN.URO.CBU ---
Today's Communication / Plan
-
homw whn ok by hospitalist with driscoll
Assessment / Plan
-
uti rettnion in immuno supessed pt plab[n per id and hospital;ist but uroogicallt keep driscoll and see if pt can manage at home may need nhp
Diagnosis
-
Date of Service: May 19, 2024
-
Patient Diagnosis:
Post Op Day:
Patient Diagnosis:
Post Op Day:
Patient Diagnosis:
Post Op Day:
Patient Diagnosis:
Post Op Day:
Patient Diagnosis:
Post Op Day:
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
Post Op Day:
Subjective
-
not voiding
Objective
-
Vital Signs
Temp Pulse Resp BP Pulse Ox
98 F 79 16 121/68 97
05/19/24 07:30 05/19/24 07:30 05/19/24 07:30 05/19/24 07:30 05/19/24 07:30
Intake and Output
05/18/24 05/19/24 05/20/24
06:59 06:59 06:59
Intake Total 630 / 630 240 / 240
Output Total 650 / 650 500 / 500
Balance -20 / -20 -260 / -260
Intake:
Oral fluids 630 / 630 240 / 240
Output:
Urine, Driscoll 650 / 650 500 / 500
Laboratory Results
05/19/24 05:42
05/19/24 05:42
Review of Systems
-
: Difficulty Voiding
Physical Exam
-
General - well developed, well nourished, no acute distress
Chest - clear bilaterally
Abdomen - soft, non-tender, positive bowel sounds, no CVAT, no incisional pain or distention
Genitalia - normal
Rectal - normal
Skin - warm & dry with no rash
Neuro - AOx3, no motor deficits
Extremities - no clubbing, no cyanosis, no edema
Incision - clean, dry
Dressing - clean, dry, intact
Care Review
Data Reviewed
Discussed with: Nursing
--- NOTE | 2024-05-19 09:47 | W.PN.HOSP.TC ---
Today's Communication/Plan
-
see A/P
Assessment / Plan
Assessment / Plan
A/P:
# Acute urinary retention
# Solo kidney right
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
# Hx BPH
s/p Coburn in ER, purulent urine noted.
urine cultures x2 were negative, but given purulent urine noted from admission, would treat for complicated UTI
Changed Cefepime to Ancef, total 14 days
continue IVF
Urology consulted; plan to cont Coburn at time of DC
continue Proscar/Finasteride
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
SCr 2.2 on admission, today at 1.0, unknown SCr baseline
Off additional IVF
continue Coburn
follow BMP
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
s/p EGD 05/16: Abnormal esophageal motility noted, Puckering at the lower esophageal sphincter with tight mucosal folds. Esophagus biopsied. Also incidental finding of duodenal ulcer with a clean ulcer base
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
Follow path report
Diet advanced to pureed with ensure clear BID
GI planning for EGD 05/19 with Botox pending diet tolerance
Cont PPI 40 mg BID for 8 weeks, then 40 mg once daily,
Consider esophageal motility testing outpatient
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
hold current chemotherapy Cabometyx 20 mg daily
is on Immunotherapy every [address] Brambila [facility] oncology
# Chronic back pain with ambulatory dysfunction secondary to above RENAL CA METS , spine pelvis
continue oxycodone 5 mg every 8 hours as needed moderate pain, lidocaine patch lumbar spine
PT/OT recc SNF vs HH
# Essential HTN
continue amlodipine with holding parameter
# HLD
continue atorvastatin 20 mg at bedtime, fenofibrate 145 mg daily
# Hypothyroidism
continue levothyroxine 75 mcg p.o. daily
# Depression
continue trazodone 100 mg at bedtime
# KATLYN - noncompliant with CPAP since May weight loss 65 pound
DVT ppx: SC Heparin
Code: Full
Dispo: HH vs SNF
DW son on the phone. Son is aware that pt wants to go to SNF (instead of returning to [facility] his assisted living).
Dispo planning TBD
Anticipated Discharge: 24 - 48 hours
Subjective/Interval History
-
Date of Service: May 19, 2024
Objective Data
-
Labs:
Laboratory Results
05/19/24
05:42
WBC 3.9 L
Hgb 12.0 L
Hct 35.6 L
Plt Count 155
PT 15.2 H
INR 1.20
Sodium 137
Potassium 4.1
Chloride 106
Carbon Dioxide 18 L
BUN 18
Creatinine 1.0
Glucose 112 H
Calcium 8.0 L
Vital Signs:
Vital Signs
Temp Pulse Resp BP Pulse Ox
36.6 C 79 16 121/68 97
05/19/24 07:30 05/19/24 07:30 05/19/24 07:30 05/19/24 07:30 05/19/24 07:30
I&O
05/18/24 05/19/24 05/20/24
06:59 06:59 06:59
Intake Total 630 / 630 240 / 240
Output Total 650 / 650 500 / 500
Balance -20 / -20 -260 / -260
Review of Systems
-
Abdomen/GI: Reports Other (difficulty with swallowing food)
Physical Exam
-
General: Well Developed, Well Nourished, No Apparent Distress, Comfortable and Conversant
HEENT: Normocephalic, Atraumatic, Nose Appears Normal and Ears Appear Normal
Respiratory: Clear to Auscultation and Non Labored Respirations; Negative Wheezes or Accessory Resp Muscle Use
Cardiac: Regular Rhythm and S1/S2
GI: Soft, Nontender, Nondistended and Normal Bowel Sounds
Genito-urinary: Coburn
Musculoskeletal: No Edema
Neuro: Awake and Alert
Psych: Calm and Intact Judgement/Insight (somewhat)
Data Reviewed
-
Medical Tests (Nuc Med, Echo etc): Report Reviewed by me (barium swallow, EGD) and Discussed with Family
Labs: Labs Reviewed by me
--- NOTE | 2024-05-19 10:48 | W.PN.UPDATE ---
Update Note
Progress Note Update
Discussed with patient's son, raymundo Thibodeaux AM regarding pursuing EGD today, 05/19/2024. Patient's son was in agreement along with deferring further motility work-up given his age and most notably his cancer history as not a candidate for further
advanced therapies (ie POEM, LHD, or even PD). Discussed treating empirically with EGD with botox infection of LES and dilation of suspected achalasia. Patient's son agreeable and was very appreciative. Will update patient's son after his father's
procedure. Addressed all questions and concerns. Patient's son demonstrated understanding and amenable to plan.
[2024-05-19] MEDS: FLOMAX PO (10:54)
--- NOTE | 2024-05-19 13:18 | CM ---
Spoke with attending this am who stated that patient's son wanted a call. Met with patient at his request as well. Patient stated that he is comfortable going to [facility] upon discharge. He was made aware that an RN from there will be out to to
evaluate patient so that they know where in the community to place patient for the best care.
Placed a call to patient's son who confirmed that he is in agreement with patient returning to [facility], early next week/week of 05/22 after an RN can evaluate him from his Community.
Patient stated that he is getting a procedure later today.
Plan: Case management will continue to follow and assist with discharge planning. Back to [facility] when medically stable/once [facility] lets CM know of where he will be placed.
[2024-05-19] MEDS: BOTOX 100 UNITS INJ (15:06)
[2024-05-19] MEDS: DESYREL 100 MG PO (21:57)
[2024-05-19] MEDS: LIPITOR 20 MG PO (21:57)
[2024-05-20] MEDS: ANCEF 5 IV ×3 (01:10→17:23)
[2024-05-20] MEDS: SYNTHROID 75 MCG PO (05:56)
[2024-05-20 06:43] LABS: Hematocrit 36.1 % (39.0-52.0); Mean Corp Hgb Conc. 33.2 g/dL (33.0-37.0); Mean Corpuscular Hgb 28.8 pg (27.0-31.0); Mean Corpuscular Volume 86.6 fL (80.0-94.0); Mean Platelet Volume 9.2 fL (7.4-10.4); Platelet Count 144 10^3/uL (130-400); Red Blood Cell Count 4.17 10^6/uL (4.70-6.10); White Blood Cell Count 4.4 10^3/uL (4.8-10.8)
[2024-05-20 07:00] VITALS: BP 117/74
[2024-05-20 07:07] LABS: Blood Urea Nitrogen 19 mg/dl (9-20); Calcium 7.8 mg/dl (8.4-10.2); Carbon Dioxide 18 mmol/L (22-30); Chloride 107 mmol/L (98-107); Estimated Creatinine Clearance 51 ml/min; Glucose 111 mg/dl (70-99); Potassium 4.4 mmol/L (3.5-5.1); Sodium 138 mmol/L (135-145); eGFR > 60.00
[2024-05-20] MEDS: LIDOCAINE 4% PATCH TOPICAL (08:15)
[2024-05-20] MEDS: PROTONIX IV 40 MG IV ×2 (08:15→21:40)
[2024-05-20] MEDS: NSS (PRESERVATIVE FREE) 10 ML IV ×2 (08:15→21:40)
[2024-05-20] MEDS: DESENEX/MITRAZOL/ZEASORB 1 APPLIC TOPICAL ×2 (08:16→21:40)
[2024-05-20] MEDS: PROSCAR 5 MG PO (08:16)
[2024-05-20] MEDS: NORVASC 5 MG PO (08:16)
[2024-05-20] MEDS: HEPARIN 5000 UNITS SC (08:16)
[2024-05-20] MEDS: VITAMIN D3 (cholecalciferol) 50 MCG PO (08:16)
[2024-05-20] MEDS: FOLVITE 1 MG PO (08:16)
[2024-05-20] MEDS: ASPIR LOW (ENTERIC COATED) 81 MG PO (08:16)
[2024-05-20] MEDS: VITAMIN C 500 MG PO (08:16)
--- NOTE | 2024-05-20 09:15 | W.PN.GI.CBS2 ---
Today's Communication / Plan
-
Please see assessment and plan for details.
Assessment / Plan
-
1. Dysphagia: Consistent with achalasia, status post Botox and dilation, overall doing well, with improved swallowing today. Would expect some continued proved over the next couple days until maximal effect of Botox.
2. Peptic ulcer disease: Clean-based, with no signs of bleeding, overall doing well. Continue PPI twice daily for 8 weeks then daily indefinitely. He is okay DC from GI standpoint, will plan follow-up in [address] Mcgowan.
We will sign off for now, please call back with any further questions.
Subjective
Subjective
Date of Service: May 20, 2024
Patient feeling okay, feels that swallowing is improved today. No abdominal pain, melena or hematochezia.
Objective
Data Reviewed
Laboratory Data:
Laboratory Results
05/20/24 06:12
05/20/24 06:12
Laboratory Results
PT 15.2 Sec (11.4-14.6) H 05/19/24 05:42
INR 1.20 05/19/24 05:42
Magnesium 2.1 mg/dl (1.6-2.3) 05/16/24 05:48
Total Bilirubin 1.0 mg/dl (0.2-1.3) 05/18/24 06:27
AST 63 U/L (17-59) H 05/18/24 06:27
ALT 24 U/L (0-50) 05/18/24 06:27
Alkaline Phosphatase 86 U/L (38-126) 05/18/24 06:27
Vital Signs and I&O:
Vital Signs
Temp Pulse Resp BP Pulse Ox
97.6 F 82 16 117/74 98
05/20/24 07:00 05/20/24 07:00 05/20/24 07:00 05/20/24 07:00 05/20/24 07:00
I&O
05/19/24 05/20/24 05/21/24
06:59 06:59 06:59
Intake Total 240 / 240 420 / 420
Output Total 500 / 500 450 / 450
Balance -260 / -260 -30 / -30
Physical Exam
Physical Exam
General: NAD
Abdomen: normal bowel sounds, soft, no tenderness, no masses or bruits, no ascites
--- NOTE | 2024-05-20 09:53 | W.PN.HOSP.TC ---
Addendum entered and electronically signed by Emma Monge MD 05/21/24 10:35:
DVT ppx now changed to Lovenox SQ with improved MONA
Original Note:
Today's Communication/Plan
-
see A/P
Assessment / Plan
Assessment / Plan
A/P:
# Acute urinary retention
# Solo kidney right
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
# Hx BPH
s/p Coburn in ER, purulent urine noted.
urine cultures x2 were negative, but given purulent urine noted from admission, would treat for complicated UTI
Changed Cefepime to Ancef, total 14 days
continue IVF
Urology consulted; plan to cont Coburn at time of DC
continue Proscar/Finasteride
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
SCr 2.2 on admission, today at 1.1, unknown SCr baseline
Off additional IVF
continue Coburn
follow BMP
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
s/p EGD 05/16: Abnormal esophageal motility noted, Puckering at the lower esophageal sphincter with tight mucosal folds. Esophagus biopsied. Also incidental finding of duodenal ulcer with a clean ulcer base
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
Follow path report from EGD
s/p repeat EGD 05/19 with Botox injection and dilation
Diet advanced to low iodine diet per GI
Cont PPI 40 mg BID for 8 weeks, then 40 mg once daily indefinitely after that
Could consider esophageal motility testing outpatient although son leaning against that currently
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
hold current chemotherapy Cabometyx 20 mg daily
is on Immun[facility] every [address]
# Chronic back pain with ambulatory dysfunction secondary to above RENAL CA METS , spine pelvis
continue oxycodone 5 mg every 8 hours as needed moderate pain, lidocaine patch lumbar spine
PT/OT recc SNF vs HH
# Essential HTN
continue amlodipine with holding parameter
# HLD
continue atorvastatin 20 mg at bedtime, fenofibrate 145 mg daily
# Hypothyroidism
continue levothyroxine 75 mcg p.o. daily
# Depression
continue trazodone 100 mg at bedtime
# KATLYN - noncompliant with CPAP since December weight loss 65 pound
DVT ppx: SC Heparin
Code: Full
Dispo: [facility] to [facility] with [facility]
DW CM. [facility] will send a RN to the hospital to evaluate the pt prior to pt's return to [place].
Anticipated Discharge: Within 24 hours
Subjective/Interval History
-
Date of Service: May 20, 2024
Objective Data
-
Labs:
Laboratory Results
05/20/24
06:12
WBC 4.4 L
Hgb 12.0 L
Hct 36.1 L
Plt Count 144
Sodium 138
Potassium 4.4
Chloride 107
Carbon Dioxide 18 L
BUN 19
Creatinine 1.1
Glucose 111 H
Calcium 7.8 L
Vital Signs:
Vital Signs
Temp Pulse Resp BP Pulse Ox
36.4 C 82 16 117/74 98
05/20/24 07:00 05/20/24 07:00 05/20/24 07:00 05/20/24 07:00 05/20/24 07:00
I&O
05/19/24 05/20/24 05/21/24
06:59 06:59 06:59
Intake Total 240 / 240 420 / 420
Output Total 500 / 500 450 / 450
Balance -260 / -260 -30 / -30
Review of Systems
-
Abdomen/GI: Reports Other (dysphagia has improved )
Physical Exam
-
General: Well Developed, Well Nourished, No Apparent Distress, Comfortable and Conversant
HEENT: Normocephalic, Atraumatic, Nose Appears Normal and Ears Appear Normal
Respiratory: Clear to Auscultation and Non Labored Respirations; Negative Wheezes or Accessory Resp Muscle Use
Cardiac: Regular Rhythm and S1/S2
GI: Soft, Nontender, Nondistended and Normal Bowel Sounds
Genito-urinary: Coburn
Musculoskeletal: No Edema
Neuro: Awake and Alert
Psych: Calm and Intact Judgement/Insight (somewhat)
Data Reviewed
-
Medical Tests (Nuc Med, Echo etc): Report Reviewed by me (barium swallow, EGD) and Discussed with Family
Labs: Labs Reviewed by me
[2024-05-20] MEDS: FLOMAX 0.8 MG PO (12:00)
[2024-05-20 15:00] VITALS: BP 113/64
[2024-05-20] MEDS: LOVENOX 40 MG SC (17:23)
[2024-05-20] MEDS: DESYREL 100 MG PO (21:46)
[2024-05-20] MEDS: LIPITOR 20 MG PO (21:48)
[2024-05-20 23:45] VITALS: BP 118/73
[2024-05-21] MEDS: ANCEF 5 IV ×3 (02:32→17:34)
[2024-05-21] MEDS: SYNTHROID 75 MCG PO (06:27)
[2024-05-21 07:00] VITALS: BP 110/61
[2024-05-21] MEDS: NORVASC 5 MG PO (07:49)
[2024-05-21] MEDS: FOLVITE 1 MG PO (07:49)
[2024-05-21] MEDS: ASPIR LOW (ENTERIC COATED) 81 MG PO (07:49)
[2024-05-21] MEDS: VITAMIN C 500 MG PO (07:49)
[2024-05-21] MEDS: VITAMIN D3 (cholecalciferol) 50 MCG PO (07:49)
[2024-05-21] MEDS: PROSCAR 5 MG PO (07:49)
[2024-05-21] MEDS: DESENEX/MITRAZOL/ZEASORB TOPICAL (07:52)
[2024-05-21] MEDS: LIDOCAINE 4% PATCH TOPICAL (07:52)
[2024-05-21] MEDS: PROTONIX IV 40 MG IV ×2 (07:53→21:16)
[2024-05-21] MEDS: NSS (PRESERVATIVE FREE) 10 ML IV ×2 (07:53→21:16)
[2024-05-21 08:11] LABS: Hematocrit 36.8 % (39.0-52.0); Hemoglobin 12.3 g/dL (13.0-18.0); Mean Corp Hgb Conc. 33.4 g/dL (33.0-37.0); Mean Corpuscular Hgb 29.6 pg (27.0-31.0); Mean Corpuscular Volume 88.5 fL (80.0-94.0); Mean Platelet Volume 9.9 fL (7.4-10.4); Platelet Count 130 10^3/uL (130-400); Red Blood Cell Count 4.16 10^6/uL (4.70-6.10); White Blood Cell Count 3.4 10^3/uL (4.8-10.8)
[2024-05-21 08:52] LABS: Blood Urea Nitrogen 17 mg/dl (9-20); Carbon Dioxide 18 mmol/L (22-30); Chloride 104 mmol/L (98-107); Estimated Creatinine Clearance 51 ml/min; Glucose 106 mg/dl (70-99); Potassium 4.6 mmol/L (3.5-5.1); Sodium 135 mmol/L (135-145); eGFR > 60.00
--- NOTE | 2024-05-21 09:52 | CM ---
Addendum entered by Mary Arias 05/21/24 10:18:
no referral sent to [facility] since patient with return to [facility] with [facility] already in system.
Original Note:
04/2124 attending asking if patient can return to [facility].i spoke with [facility] and she first asked if patient could do his own driscoll care.patient told cm if he had to take care of his driscoll to return then he could do it. after several calls to fawn
she told me there is no nurse on weekend and facility was not able to get meds over the weekend as well.she also asked for a referral to be sent to [facility] for driscoll care.referral sent.plan dc back to [facility] on wednesday.
--- NOTE | 2024-05-21 10:32 | W.PN.HOSP.TC ---
Today's Communication/Plan
-
see A/P
Assessment / Plan
Assessment / Plan
A/P:
# Acute urinary retention
# Solo kidney right
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
# Hx BPH
s/p Coburn in ER, purulent urine noted.
urine cultures x2 were negative, but given purulent urine noted from admission, would treat for complicated UTI
Changed Cefepime to Ancef, total 14 days
continue IVF
Urology consulted; plan to cont Coburn at time of DC
continue Proscar/Finasteride
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
SCr 2.2 on admission, today at 1.1, unknown SCr baseline
Off additional IVF
continue Coburn
follow BMP
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
s/p EGD 05/16: Abnormal esophageal motility noted, Puckering at the lower esophageal sphincter with tight mucosal folds. Esophagus biopsied. Also incidental finding of duodenal ulcer with a clean ulcer base
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
Follow path report from EGD
s/p repeat EGD Fri 05/19 with Botox injection and dilation
Diet advanced to low iodine diet per GI and pt tolerating well
Cont PPI 40 mg BID for 8 weeks, then 40 mg once daily indefinitely after that
Could consider esophageal motility testing outpatient although son leaning against that currently
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
hold current chemotherapy Cabometyx 20 mg daily
is on Immunotherapy every [address] Brambila [facility] oncology
# Chronic back pain with ambulatory dysfunction secondary to above RENAL CA METS , spine pelvis
continue oxycodone 5 mg every 8 hours as needed moderate pain, lidocaine patch lumbar spine
PT/OT recc SNF vs HH
# Essential HTN
continue amlodipine with holding parameter
# HLD
continue atorvastatin 20 mg at bedtime, fenofibrate 145 mg daily
# Hypothyroidism
continue levothyroxine 75 mcg p.o. daily
# Depression
continue trazodone 100 mg at bedtime
# KATLYN - noncompliant with CPAP since December weight loss 65 pound
DVT ppx: SC Heparin
Code: Full
Dispo: return to [facility] with HH
DW CM. [facility] will [facility] a RN to the hospital to evaluate the pt prior to his return to [place].
Anticipated Discharge: Within 24 hours
Subjective/Interval History
-
Date of Service: May 21, 2024
Objective Data
-
Labs:
Laboratory Results
05/21/24 05/21/24
07:00 07:01
WBC 3.4 L
Hgb 12.3 L
Hct 36.8 L
Plt Count 130
Sodium 135
Potassium 4.6
Chloride 104
Carbon Dioxide 18 L
BUN 17
Creatinine 1.1
Glucose 106 H
Calcium 8.0 L
Vital Signs:
Vital Signs
Temp Pulse Resp BP Pulse Ox
36.6 C 73 18 110/61 98
05/21/24 07:00 05/21/24 07:00 05/21/24 07:00 05/21/24 07:00 05/21/24 07:00
I&O
05/20/24 05/21/24 05/22/24
06:59 06:59 06:59
Intake Total 420 / 420 1680 / 1680 240 / 240
Output Total 450 / 450 500 / 500
Balance -30 / -30 1180 / 1180 240 / 240
Review of Systems
-
Abdomen/GI: Reports Other (dysphagia has improved after EGD Botox injection )
Physical Exam
-
General: Well Developed, Well Nourished, No Apparent Distress, Comfortable and Conversant
HEENT: Normocephalic, Atraumatic, Nose Appears Normal and Ears Appear Normal
Respiratory: Clear to Auscultation and Non Labored Respirations; Negative Wheezes or Accessory Resp Muscle Use
Cardiac: Regular Rhythm and S1/S2
GI: Soft, Nontender, Nondistended and Normal Bowel Sounds
Genito-urinary: Coburn
Musculoskeletal: No Edema
Neuro: Awake and Alert
Psych: Calm and Intact Judgement/Insight (somewhat)
Data Reviewed
-
Medical Tests (Nuc Med, Echo etc): Report Reviewed by me (barium swallow, EGD) and Discussed with Family
Labs: Labs Reviewed by me
[2024-05-21] MEDS: FLOMAX 0.8 MG PO (12:12)
[2024-05-21 15:00] VITALS: BP 101/61
[2024-05-21 16:05] VITALS: BP 101/61
[2024-05-21] MEDS: LOVENOX 40 MG SC (17:34)
[2024-05-21] MEDS: LIPITOR 20 MG PO (21:16)
[2024-05-21] MEDS: DESYREL 100 MG PO (21:16)
[2024-05-21 23:20] VITALS: BP 118/66
[2024-05-22] MEDS: DESENEX/MITRAZOL/ZEASORB 1 APPLIC TOPICAL (01:21)
[2024-05-22] MEDS: ANCEF 5 IV ×3 (02:51→16:37)
[2024-05-22] MEDS: SYNTHROID 75 MCG PO (06:10)
[2024-05-22 06:15] LABS: Hemoglobin 11.3 g/dL (13.0-18.0); Mean Corp Hgb Conc. 33.2 g/dL (33.0-37.0); Mean Corpuscular Hgb 28.8 pg (27.0-31.0); Mean Corpuscular Volume 86.5 fL (80.0-94.0); Mean Platelet Volume 9.7 fL (7.4-10.4); Platelet Count 126 10^3/uL (130-400); Red Blood Cell Count 3.93 10^6/uL (4.70-6.10); Red Cell Dist. Width 15.1 % (11.5-14.5); White Blood Cell Count 3.7 10^3/uL (4.8-10.8)
[2024-05-22 06:50] LABS: Blood Urea Nitrogen 16 mg/dl (9-20); Calcium 8.1 mg/dl (8.4-10.2); Carbon Dioxide 16 mmol/L (22-30); Chloride 105 mmol/L (98-107); Estimated Creatinine Clearance 56 ml/min; Glucose 118 mg/dl (70-99); Sodium 134 mmol/L (135-145); eGFR > 60.00
[2024-05-22 07:24] VITALS: BP 112/66
[2024-05-22] MEDS: NSS (PRESERVATIVE FREE) 10 ML IV (09:32)
[2024-05-22] MEDS: PROTONIX IV 40 MG IV (09:32)
[2024-05-22] MEDS: VITAMIN D3 (cholecalciferol) 50 MCG PO (09:33)
[2024-05-22] MEDS: ASPIR LOW (ENTERIC COATED) 81 MG PO (09:33)
[2024-05-22] MEDS: VITAMIN C 500 MG PO (09:33)
[2024-05-22] MEDS: NORVASC 5 MG PO (09:33)
[2024-05-22] MEDS: PROSCAR 5 MG PO (09:33)
[2024-05-22] MEDS: FOLVITE 1 MG PO (09:33)
[2024-05-22] MEDS: LIDOCAINE 4% PATCH TOPICAL (09:34)
[2024-05-22] MEDS: DESENEX/MITRAZOL/ZEASORB TOPICAL (09:35)
--- NOTE | 2024-05-22 11:52 | CM ---
Addendum entered by ELIDA Munoz 05/22/24 15:39:
Met with patient to discuss w/c van fee, 115 and provided him number to call for w/c van. He expressed that he can do this independently.
Addendum entered by ELIDA Munoz 05/22/24 14:57:
Latosha out to see patient from [facility]. She answered all of patient's questions. She stated that patient's pharmacy on community grounds is,
[facility] [phone] F [phone]
#For report [phone] and fax for discharge summary [phone]
[facility] RN, denied transportation from facility. Discussed w/c van and fee with patient who is agreeable and understands he will need to pay out of pocket.
Addendum entered by ELIDA Munoz 05/22/24 12:02:
Received call back from Nica at [facility], who stated that an RN named, Robin, who be out to evaluate patient early this afternoon.
Original Note:
Placed a call to [facility] as patient has been medically cleared for discharge. Had to leave a voice mail message at the number that was provided by previous RN. (Number in previous CM notes).
Will await return call as patient needs to be evaluated regarding where in the community can best support his current needs.
Will attempt another call if no call has been received soon.
Plan: Case management will continue to follow and assist with discharge planning. Back to [facility] once return call has been received from the community.
[2024-05-22] MEDS: FLOMAX 0.8 MG PO (11:59)
--- NOTE | 2024-05-22 12:22 | W.PN.HOSP.TC ---
Today's Communication/Plan
-
dc back to [facility] today
Assessment / Plan
Assessment / Plan
Assessment:
Acute urinary retention
Solo kidney right
Hx LEFT nephrectomy secondary to renal carcinoma 1967
Hx BPH
- s/p Coburn in ER, purulent urine noted.
- urine cultures x2 were negative, but given purulent urine noted from admission, would treat for complicated UTI x 14 days, currently on Ancef and DC on Keflex to finish course
- Urology following; plan is for continuation of Coburn at DC and OP Void trial
- continue Proscar/Finasteride
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
- SCr 2.2 on admission, today at 1.0, unknown SCr baseline
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
- esophageal study noted stricture at GE junction
- s/p EGD 05/16: Abnormal esophageal motility noted, Puckering at the lower esophageal sphincter with tight mucosal folds. Esophagus biopsied. Also incidental finding of duodenal ulcer with a clean ulcer base
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
- s/p repeat EGD 05/19 with Botox injection and dilation
- Diet advanced to low residue diet per GI and pt tolerating well
- Cont PPI 40 mg BID for 8 weeks, then 40 mg once daily indefinitely after that
- Could consider esophageal motility testing outpatient although son leaning against that currently
Hx of Renal Cancer with mets to spine, lumbar area, pelvis, liver, lesion between pancreas and stomach
- hold current chemotherapy Cabometyx 20 mg daily
- is on Immunotherapy every [address] [facility] oncology
Chronic back pain with ambulatory dysfunction secondary to above RENAL CA METS , spine pelvis
- continue oxycodone 5 mg every 8 hours as needed moderate pain, lidocaine patch lumbar spine
Essential HTN
- continue amlodipine with holding parameter
HLD
- continue atorvastatin 20 mg at bedtime, fenofibrate 145 mg daily
Hypothyroidism
- continue levothyroxine 75 mcg p.o. daily
Depression
- continue trazodone 100 mg at bedtime
KATLYN - noncompliant with CPAP since December weight loss 65 pound
DVT ppx: SC Heparin
Code: Full
More than 30 minutes spent in discharge including
Final examination of the patient
Summarizing hospital stay
Instructions for continuing care to all relevant caregivers
Preparation of discharge records, prescriptions, and referral forms
Total time spent (in minutes): 42
Anticipated Discharge: Today
Subjective/Interval History
-
Date of Service: May 22, 2024
tolerating soft diet
no new complaints
Objective Data
-
Labs:
Laboratory Results
05/22/24
05:48
WBC 3.7 L
Hgb 11.3 L
Hct 34.0 L
Plt Count 126 L
Sodium 134 L
Potassium 4.0
Chloride 105
Carbon Dioxide 16 L
BUN 16
Creatinine 1.0
Glucose 118 H
Calcium 8.1 L
Vital Signs:
Vital Signs
Temp Pulse Resp BP Pulse Ox
98.4 F 77 19 112/66 98
05/22/24 07:24 05/22/24 09:33 05/22/24 07:24 05/22/24 09:33 05/22/24 07:24
I&O
05/21/24 05/22/24 05/23/24
06:59 06:59 06:59
Intake Total 1680 / 1680 1440 / 1440
Output Total 500 / 500 900 / 900
Balance 1180 / 1180 540 / 540
Physical Exam
-
General: No Apparent Distress
HEENT: Normocephalic and Atraumatic
Respiratory: Negative Wheezes or Rales
Cardiac: Regular Rhythm and S1/S2
GI: Soft
Genito-urinary: No Costovertebral Tender
Musculoskeletal: No Edema
Neuro: AO x 3
Hematologic / Lymphatic: No Lymphadenopathy
Psych: Calm
Data Reviewed
-
Total Time Spent with Patient (in minutes): 42
Labs: Labs Reviewed by me
--- NOTE | 2024-05-22 12:39 | W.DS.TRANS ---
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
-
Discharge Instructions:
Discharge Diagnosis/Procedures Acute urinary retention with driscoll placed this
admission (continue driscoll until further directed
by urologist outpatient);
Possible urinary tract infection (to complete
antibiotic course)
Acute kidney injury on chronic kidney disease;
Gastroesophageal junction stricture may be due
to esophageal motility disorder status post
botox injection;
History of Renal Cancer with spread to spine,
lumbar area, pelvis, liver, lesion between
pancreas and stomach
Diet As tolerated,Other diet
Additional Diets low residue/soft foods with adequate chewing
Activity As tolerated
Driving Restrictions As prior to admission
Other Services VN
Instructions:
Stand-Alone Forms:
Changes to Home Medications: No
Discharge Medications:
DC Medications w/original date entered in [facility]
acetaminophen 325 mg tablet 650 mg PO Q6HPRN PRN mild pain 05/12/24
amlodipine 5 mg tablet 5 mg PO DAILY Blood Pressure 05/12/24
ascorbic acid (vitamin C) 500 mg tablet (Vitamin C) 500 mg PO DAILY Supplement 05/12/24
aspirin 81 mg tablet,delayed release 81 mg PO DAILY Blood Clot Prevention/Tx 05/12/24
atorvastatin 20 mg tablet 20 mg PO HS High Cholesterol 05/12/24
bisacodyl 10 mg rectal suppository 10 mg PA [id number] PRN constipation, mom ineffective 05/12/24
cabozantinib 20 mg tablet (Cabometyx) 20 mg PO DAILY Cancer 05/12/24
cholecalciferol (vitamin D3) 50 mcg (2,000 unit) tablet (Vitamin D3) 50 mcg PO DAILY Supplement 05/12/24
fenofibrate nanocrystallized 145 mg tablet 145 mg PO DAILY Constipation 05/12/24
finasteride 5 mg tablet 5 mg PO DAILY Urinary Issue 05/12/24
folic acid 1 mg tablet 1 mg PO DAILY Supplement 05/12/24
levothyroxine 75 mcg tablet 75 mcg PO DAILY Thyroid 05/12/24
lidocaine 5 % topical patch 1 patch topical DAILY Pain 05/12/24
magnesium hydroxide 400 mg/5 mL oral suspension (Milk of Magnesia) 30 ml PO DAILYPRN PRN constipation 05/12/24
methocarbamol 500 mg tablet 1,000 mg PO Q6HPRN PRN muscle spasms 05/12/24
omega 0-rpv-zbi-fish oil 1,200 mg (144 mg-216 mg) capsule (Fish Oil) 1,200 cap PO DAILY Supplement/cholesterol 05/12/24
sodium phosphates 19 gram-7 gram/118 mL enema (Fleet Enema) 118 ml PA DAILYPRN PRN constipation 05/12/24
tamsulosin 0.4 mg capsule 0.8 mg PO NOON Urinary Issue 05/12/24
trazodone 100 mg tablet 100 mg PO HS Sleep 05/12/24
cephalexin 500 mg capsule 500 mg PO QID #16 caps 05/22/24
oxycodone 5 mg tablet 5 mg PO Q8HPRN PRN moderate pain #6 tabs 05/22/24
pantoprazole 40 mg tablet,delayed release (Protonix) 40 mg PO BID #60 tabs 05/22/24
Home Medication Changes
Pending Results: No
Total time spent discharging patient (in min): 42
[2024-05-22 15:41] VITALS: BP 105/63
[2024-05-22] MEDS: LOVENOX 40 MG SC (16:37)
== END 2024-05-22 17:25 | DRG 683 ==
LOC: 3 WEST ACU 17:55
PROVIDERS: Clinical Nurse Specialist Family Health; Internal Medicine; Internal Medicine Gastroenterology; Nurse Practitioner Adult Health; ADMITTING PHYSICIAN Internal Medicine; ATTENDING PHYSICIAN Internal Medicine; CONSULT PHYSICIAN Internal Medicine Gastroenterology; CONSULT PHYSICIAN Specialist; EMERGENCY PHYSICIAN Emergency Medicine; FAMILY PHYSICIAN Family Medicine
PROC: 0DB68ZX Excision of Stomach, Via Natural or Artificial Opening Endoscopic, Diagnostic (ICD-10-PCS; 2024-05-16)
PROC: 0DB58ZX Excision of Esophagus, Via Natural or Artificial Opening Endoscopic, Diagnostic (ICD-10-PCS; 2024-05-16)
PROC: 0DB98ZX Excision of Duodenum, Via Natural or Artificial Opening Endoscopic, Diagnostic (ICD-10-PCS; 2024-05-16)
PROC: 0D738ZZ Dilation of Lower Esophagus, Via Natural or Artificial Opening Endoscopic (ICD-10-PCS; 2024-05-19)
DX: N17.9 Acute kidney failure, unspecified (principal); C79.51 Secondary malignant neoplasm of bone; N39.0 Urinary tract infection, site not specified; D84.9 Immunodeficiency, unspecified; N18.4 Chronic kidney disease, stage 4 (severe); K22.0 Achalasia of cardia; K22.89 Other specified disease of esophagus; K26.9 Duodenal ulcer, unspecified as acute or chronic, without hemorrhage or perforation; K22.5 Diverticulum of esophagus, acquired; G89.29 Other chronic pain; M54.9 Dorsalgia, unspecified; I12.9 Hypertensive chronic kidney disease with stage 1 through stage 4 chronic kidney disease, or unspecified chronic kidney disease; E03.9 Hypothyroidism, unspecified; E66.9 Obesity, unspecified; G47.33 Obstructive sleep apnea (adult) (pediatric); Z79.899 Other long term (current) drug therapy; Z85.528 Personal history of other malignant neoplasm of kidney; Z90.5 Acquired absence of kidney; Z79.82 Long term (current) use of aspirin; Z68.31 Body mass index [BMI] 31.0-31.9, adult
CPT/HCPCS: 88305; 88312; 51702; 51798; 74220; 76770; 80048; 80053; 81003; 81015; 82248; 83605; 83735; 85025; 85027; 85610; 87040; 87070; 87086; 88313; 88342; 92610; 97116; 97163; 97167; 97530; 97535; 99285; C1726; J0585

== ENCOUNTER 2024-08-27 05:56 | Inpatient (IN) | payer OTHER, SELFPAY ==
[2024-08-26 19:31] VITALS: BP 117/80
[2024-08-26 20:25] LABS: % Basophils 0.5 % (0-2); % Eosinophils 2.6 % (0-6); % Immature Granulocytes 0.2 % (0-0.5); % Lymphocytes 23.4 % (20.5-51.1); % Monocytes 7.8 % (1.7-9.3); % Neutrophils 65.5 % (42.2-75.2); Absolute Eosinophils 0.2 10^3/uL (0-0.7); Absolute Lymphocytes 1.4 10^3/uL (1.2-3.4); Absolute Monocytes 0.5 10^3/uL (0.1-0.6); Absolute Neutrophils 3.8 10^3/uL (1.4-6.5); Hematocrit 36.7 % (39.0-52.0); Hemoglobin 12.5 g/dL (13.0-18.0); Mean Corp Hgb Conc. 34.1 g/dL (33.0-37.0); Mean Corpuscular Hgb 30.9 pg (27.0-31.0); Mean Corpuscular Volume 90.6 fL (80.0-94.0); Mean Platelet Volume 9.8 fL (7.4-10.4); Nucleated Red Blood Cells % 0 % (-); Platelet Count 173 10^3/uL (130-400); Red Blood Cell Count 4.05 10^6/uL (4.70-6.10); Red Cell Dist. Width 16.4 % (11.5-14.5); White Blood Cell Count 5.8 10^3/uL (4.8-10.8)
[2024-08-26 20:39] LABS: ALT (SGPT) 55 U/L (0-50); AST (SGOT) 103 U/L (17-59); Alkaline Phosphatase 50 U/L (38-126); Blood Urea Nitrogen 31 mg/dl (9-20); Carbon Dioxide 23 mmol/L (22-30); Chloride 99 mmol/L (98-107); Glucose 122 mg/dl (70-99); Potassium 3.9 mmol/L (3.5-5.1); Sodium 134 mmol/L (135-145); Total Bilirubin 1.7 mg/dl (0.2-1.3); eGFR 27.49
--- NOTE | 2024-08-26 22:03 | EDRN ---
Pt removed own c-collar, refusing to wear c-collar.
[2024-08-26 22:31] VITALS: BMI 26.7
[2024-08-26 22:32] VITALS: BP 120/72
--- NOTE | 2024-08-26 22:52 | ED.GENMED ---
History of Present Illness
<Stephen Thayer DO, Resident - Last Filed: 08/26/24 23:47>
General
Chief Complaint: Fall
Source: patient and records
Time Seen by Provider: 08/26/24 22:28
History of Present Illness
History of Present Illness:
84-year-old male with a past medical history significant for kidney cancer, status post resection with metastasis, esophageal narrowing, hyperlipidemia, high blood pressure, hypothyroidism presents for an unwitnessed mechanical fall. Patient
reports approximately 1 PM today he stood up and slipped out of his wheelchair as it was not locked. Patient reports that he hit the back of his head, did not lose consciousness and subsequently call for help. Patient reports not taking blood
thinners. Patient reports it took approximately 1 hour for help to arrive. As for now patient has no pain. Patient denies any symptom suspicion for concussion, no headache, no difficulty concentrating, no photophobia. Patient does report he has
not been eating or drinking well lately.
Past History
<Stephen Thayer DO, Resident - Last Filed: 08/26/24 23:47>
Past History
ED Past Medical History: Other (Kidney cancer status post left nephrectomy, hypertension, hyperlipidemia, BPH)
ED Past Surgical History: Other (Left-sided nephrectomy, inguinal hernia repair, septoplasty)
Social History
Tobacco: Non-smoker
Alcohol: None
Drug: None
Personal:
Living: other
Review of Systems
<Stephen Thayer DO, Resident - Last Filed: 08/26/24 23:47>
Review of Systems
Constitutional: Reports no symptoms
Respiratory: Reports no symptoms
Cardiac: Reports no symptoms
ABD/GI: Reports no symptoms
: Reports difficulty voiding and other (Burning in the genital area, not with urination)
Musculoskeletal: Reports back pain (Certain positions exacerbate back pain.)
Neurological: Reports no symptoms
Phy Exam
<Stephen Thayer DO, Resident - Last Filed: 08/26/24 23:47>
General Physical Exam
General Presentation: well appearing and no apparent distress
General Skin: warm and dry
General Mental: alert
Cardiovascular Exam
Cardiovascular Exam: regular rate/rhythm, no edema and no murmur
Pulmonary Exam
Pulmonary Exam: lungs clear, no respiratory distress, no crackles and no wheezing
Gastrointestinal Exam
Gastrointestinal Exam: non tender, soft and non distended
Genitourinary Exam Male
Exam Male: other (Diffuse redness present across genitals and right inguinal fold)
Neurological Exam
Neurological Exam: alert, oriented x3 and speech normal
Musculoskeletal Exam
Musculoskeletal Exam: back tenderness
Course
<Stephen Thayer DO, Resident - Last Filed: 08/26/24 23:47>
Orders/Labs/Results
Orders:
Orders
08/26/24 19:41
CT Head W/o Iv Contrast Urgent
Comment:
Reason For Exam: fall head injury neck pain
Cervical Spine wo Contrast CT [CT Cervical Spine W/o Iv Contr] Urgent
Comment:
Reason For Exam: fall head injury neck pain
08/26/24 20:11
Complete Blood Count/With Diff Urgent
Comprehensive Metabolic Panel Urgent
Creatine Phosphokinase Urgent
Comment: ADD ON
08/26/24 23:10
0.9% Sodium Chloride 1000 ml [Nss] 1,000 ml IV BOLUS
08/26/24 23:21
Urinalysis Reflex To Culture Urgent
Date Specimen was Collected: 08/27/24
Time Specimen was Collected: 00:51
Comment: americo
08/26/24 23:32
Add On- LAB Urgent
Tests Added?: CPK
08/27/24 00:53
Urine Microscopic Reflex Cult Urgent
Urine Culture Urgent
RUBINA Source: U
Specimen Description:
Date Specimen was Collected: 08/27/24
Time Specimen was Collected: 00:51
08/27/24 01:13
Comprehensive Metabolic Panel Urgent
08/27/24 08:00
Nystatin Cream [Mycostatin Cream] See Dose Instructions TOPICAL BID
Abnormal Lab Results
08/26/24 08/27/24 08/27/24
20:11 00:53 01:13
RBC 4.05 L 10^6/uL
(4.70-6.10)
Hgb 12.5 L g/dL
(13.0-18.0)
Hct 36.7 L %
(39.0-52.0)
RDW 16.4 H %
(11.5-14.5)
Sodium 134 L mmol/L
(135-145)
BUN 31 H mg/dl 30 H mg/dl
(9-20) (9-20)
Creatinine 2.3 H mg/dL 2.2 H mg/dL
(0.7-1.3) (0.7-1.3)
Glucose 122 H mg/dl 109 H mg/dl
(70-99) (70-99)
Total Bilirubin 1.7 H mg/dl 1.4 H mg/dl
(0.2-1.3) (0.2-1.3)
AST 103 H U/L 82 H U/L
(17-59) (17-59)
ALT 55 H U/L
(0-50)
Total Protein 6.0 L g/dl
(6.3-8.2)
Albumin 3.3 L g/dl
(3.5-5.0)
Ur Occult Blood Reflex 1+ A
(Negative)
Urine Nitrite (Reflex) Positive A
(Negative)
Leukocyte Esterase Rfl 2+ A
(Negative)
Urine RBC 7-10 A /HPF
(0-2)
Urine WBC (Reflex) >100 A /HPF
(0-5)
Urine Bacteria (Reflex) Moderate A
(Negative)
08/26/24 20:11
08/27/24 01:13
Vital Signs
Initial and Last Documented VS:
Initial Vital Signs
Temp Pulse Resp BP Pulse Ox
97.9 F 99 20 117/80 99
08/26/24 19:31 08/26/24 19:31 08/26/24 19:31 08/26/24 19:31 08/26/24 19:31
Last Documented Vital Signs
Temp Pulse Resp BP Pulse Ox
97.9 F 76 20 107/74 95
08/26/24 19:31 08/27/24 02:45 08/27/24 00:45 08/27/24 02:09 08/27/24 02:45
<Tim Sapp, DO - Last Filed: 08/27/24 03:17>
Orders/Labs/Results
Orders:
Orders
08/26/24 19:41
CT Head W/o Iv Contrast Urgent
Comment:
Reason For Exam: fall head injury neck pain
Cervical Spine wo Contrast CT [CT Cervical Spine W/o Iv Contr] Urgent
Comment:
Reason For Exam: fall head injury neck pain
08/26/24 20:11
Complete Blood Count/With Diff Urgent
Comprehensive Metabolic Panel Urgent
Creatine Phosphokinase Urgent
Comment: ADD ON
08/26/24 23:10
0.9% Sodium Chloride 1000 ml [Nss] 1,000 ml IV BOLUS
08/26/24 23:21
Urinalysis Reflex To Culture Urgent
Date Specimen was Collected: 08/27/24
Time Specimen was Collected: 00:51
Comment: americo
08/26/24 23:32
Add On- LAB Urgent
Tests Added?: CPK
08/27/24 00:53
Urine Microscopic Reflex Cult Urgent
Urine Culture Urgent
RUBINA Source: U
Specimen Description:
Date Specimen was Collected: 08/27/24
Time Specimen was Collected: 00:51
08/27/24 01:13
Comprehensive Metabolic Panel Urgent
08/27/24 08:00
Nystatin Cream [Mycostatin Cream] See Dose Instructions TOPICAL BID
Abnormal Lab Results
08/26/24 08/27/24 08/27/24
20:11 00:53 01:13
RBC 4.05 L 10^6/uL
(4.70-6.10)
Hgb 12.5 L g/dL
(13.0-18.0)
Hct 36.7 L %
(39.0-52.0)
RDW 16.4 H %
(11.5-14.5)
Sodium 134 L mmol/L
(135-145)
BUN 31 H mg/dl 30 H mg/dl
(9-20) (9-20)
Creatinine 2.3 H mg/dL 2.2 H mg/dL
(0.7-1.3) (0.7-1.3)
Glucose 122 H mg/dl 109 H mg/dl
(70-99) (70-99)
Total Bilirubin 1.7 H mg/dl 1.4 H mg/dl
(0.2-1.3) (0.2-1.3)
AST 103 H U/L 82 H U/L
(17-59) (17-59)
ALT 55 H U/L
(0-50)
Total Protein 6.0 L g/dl
(6.3-8.2)
Albumin 3.3 L g/dl
(3.5-5.0)
Ur Occult Blood Reflex 1+ A
(Negative)
Urine Nitrite (Reflex) Positive A
(Negative)
Leukocyte Esterase Rfl 2+ A
(Negative)
Urine RBC 7-10 A /HPF
(0-2)
Urine WBC (Reflex) >100 A /HPF
(0-5)
Urine Bacteria (Reflex) Moderate A
(Negative)
08/26/24 20:11
08/27/24 01:13
Vital Signs
Initial and Last Documented VS:
Initial Vital Signs
Temp Pulse Resp BP Pulse Ox
97.9 F 99 20 117/80 99
08/26/24 19:31 08/26/24 19:31 08/26/24 19:31 08/26/24 19:31 08/26/24 19:31
Last Documented Vital Signs
Temp Pulse Resp BP Pulse Ox
97.9 F 76 20 107/74 95
08/26/24 19:31 08/27/24 02:45 08/27/24 00:45 08/27/24 02:09 08/27/24 02:45
<Stephen Thayer DO, Resident - Last Filed: 08/26/24 23:47>
MDM/Problems Addressed
Differential Diagnosis Includes:
Mechanical fall, acute kidney injury, dehydration
MDM/Problems Addressed:
84-year-old male past history of kidney cancer status post resection with solitary right kidney, on chemotherapy presents for a witnessed mechanical fall
Patient reports he was down for approximately 1 hour before help arrived. He reports he did hit his head on the back, denies loss of consciousness, denies blood thinners
Back of head demonstrates healing skin tear, already scabbing over. No need for laceration repair
As for now patient is not complaining of any pain
CT head in ED demonstrated no acute intracranial abnormalities or intracranial hemorrhage
CT neck demonstrated no acute fractures, however did demonstrate known lytic lesion
Patient reports he has not been eating or drinking much lately, he has a GI procedure scheduled with Dr. Mcgowan in the future to help�past history of narrowing esophagus at stomach
Chemistry demonstrates creatinine 2.3, baseline is approximately 1
Patient meets criteria for MONA, likely secondary to dehydration and volume depletion. BUN/creatinine ratio is 13 which could suggest an infrarenal etiology
Order 1 L normal saline bolus
Ordered recheck CMP, scheduled after IV fluid administration
If MONA does not resolve, patient will likely need admission as he is solitary right kidney
Urinalysis with reflex culture ordered, patient reports some burning in the genitals. However he does have a chronic indwelling Coburn catheter
Redness noted across patient genitals and right inguinal fold. Likely fungal infection. Will order nystatin cream applications
Of note, mild hyponatremia 134, elevated bilirubin 1.7 and mildly elevated liver functions are also noted on chemistry
Will check muscle CPK levels as patient was down for approximately 1 hour and now has MONA
Chronic conditions affecting care: Cancer
<Stephen Thayer DO, Resident - Last Filed: 08/26/24 23:47>
*Critical Care Note
Total Time (30-74mins, 75-104mins- exclusive of procedures): Not Applicable
ED Attending Note
<Stephen Thayer DO, Resident - Last Filed: 08/26/24 23:47>
-
Portions of this chart may have been created with voice recognition software.� Occasional wrong word or��sound alike� substitutions may have occurred due to the inherent limitations of voice recognition software.
<Tim Sapp DO - Last Filed: 08/27/24 03:17>
ED Attending Note
Patient seen and examined by attending physician: Yes
I performed a history and physical exam of patient and discussed management with resident, I reviewed resident's note and agree with documented findings and plan of care.: Yes
ED Attending Note:
Pleasant 84-year-old male presents to the emergency department from assisted living after a fall approximately 3 PM. Patient states that he felt weak after standing up from his wheelchair. He did hit his head but did not lose consciousness. EMS
was called at that time and he was evaluated but refused to go to the ER. Tonight he became nauseated at dinner and felt increasingly weak so he called 911 and then brought back to the hospital. Patient does have an indwelling Coburn catheter and
is Uni nephric. Patient was seen in conjunction with the medical office receptionist. I have reviewed and agree with the history and treatment plan presented. On my independent physical exam, patient is awake, alert, and oriented x3. He has a small
abrasion to his posterior scalp. Heart is regular rate and rhythm. Lungs are clear to auscultation bilaterally. Moves all 4 extremities.
Lab work reveals the patient has a UTI and new onset renal dysfunction. We did try hydrating him which did not improve his symptoms. Patient to be brought in for increased weakness, falls, UTI, and renal insufficiency.
Discharge Plan
Departure
Patient Disposition: Admit
Date of Disposition: 08/27/24
Time of Disposition: 03:15
Admit to: Telemetry
Presentation/result/management discussed w/ accepting MD/DO: Hospitalist
Discharge Problem:
Weakness, Acute UTI, Solitary kidney, acquired, Chronic kidney disease, stage 4 (severe)
Prescriptions:
No Action
methocarbamol 500 mg Tablet
1,000 mg PO Q6HPRN PRN (Reason: muscle spasms)
acetaminophen 325 mg Tablet
650 mg PO Q6HPRN PRN (Reason: mild pain)
atorvastatin 20 mg Tablet
20 mg PO HS
amlodipine 5 mg Tablet
5 mg PO DAILY
aspirin 81 mg Tablet,Delayed Release (Dr/Ec)
81 mg PO DAILY
levothyroxine 75 mcg Tablet
75 mcg PO DAILY
magnesium hydroxide [Milk of Magnesia] 400 mg/5 mL Suspension
30 ml PO DAILYPRN PRN (Reason: constipation)
ascorbic acid (vitamin C) [Vitamin C] 500 mg Tablet
500 mg PO DAILY
tamsulosin 0.4 mg Capsule
0.8 mg PO NOON
trazodone 100 mg Tablet
100 mg PO HS
bisacodyl 10 mg Suppository
10 mg DC [id number] PRN (Reason: constipation, mom ineffective)
lidocaine 5 % Adhesive Patch,Medicated
1 patch TOPICAL DAILY
Fleet Enema 19-7 gram/118 mL Enema
118 ml DC DAILYPRN PRN (Reason: constipation)
folic acid 1 mg Tablet
1 mg PO DAILY
finasteride 5 mg Tablet
5 mg PO DAILY
fenofibrate nanocrystallized 145 mg Tablet
145 mg PO DAILY
cholecalciferol (vitamin D3) [Vitamin D3] 50 mcg (2,000 unit) Tablet
50 mcg PO DAILY
omega [id number]-fish oil [Fish Oil] 1,200 (144-216) mg Capsule
1,200 cap PO DAILY
Cabometyx 20 mg Tablet
20 mg PO DAILY
cephalexin 500 mg capsule
500 mg PO QID Qty: 16 0RF
Rx Instructions:
tolerated Ancef well in hospital
pantoprazole [Protonix] 40 mg tablet,delayed release (DR/EC)
40 mg PO BID Qty: 60 1RF
oxycodone 5 mg Tablet
5 mg PO Q8HPRN PRN (Reason: moderate pain) Qty: 6 0RF
dutasteride [Avodart] 0.5 mg Capsule
0.5 mg PO DAILY
Referrals:
Edison King DO [Family Provider] -
Interventions
Interventions:
*Risk Screen - Suicide Last Done: 08/26/24 19:40
*General Assessment Last Done: 08/26/24 19:40
*Neglect/Abuse Screening Last Done: 08/26/24 19:40
*ED COVID-19 Vaccine History Last Done: 08/26/24 22:31
ED-Musculoskeletal Assessment Last Done: 08/26/24 22:31
ED- Neurological Assessment Last Done: 08/26/24 22:31
ED-Skin Assessment Last Done: 08/27/24 00:00
Discharge Date and Time
Print Language: [email or web address]
[2024-08-26 23:39] VITALS: BP 119/71
[2024-08-26] MEDS: NSS 1000 IV (23:44)
[2024-08-27] VITALS (13 sets, daily range): BP systolic 93–134; BP diastolic 57–85; PULSE 75–92; O2SAT 98
[2024-08-27 00:05] LABS: Creatine Phosphokinase 129 U/L (55-170)
[2024-08-27 00:59] LABS: Urine Albumin Trace (Neg - Trace); Urine Bilirubin Negative (Negative); Urine Character Slightly Cloudy (Clear); Urine Color Yellow; Urine Glucose Negative (Negative); Urine Ketone Negative (Negative); Urine Leukocyte 2+ (Negative); Urine Nitrite Positive (Negative); Urine Occult Blood 1+ (Negative); Urine Urobilinogen Negative (Neg - 1+)
[2024-08-27 01:14] LABS: Urine Bacteria Moderate (Negative); Urine White Cell >100 /HPF (0-5)
[2024-08-27] MEDS: MYCOSTATIN CREAM 1 APPLIC TOPICAL ×2 (01:15→20:46)
[2024-08-27 01:36] LABS: ALT (SGPT) 49 U/L (0-50); AST (SGOT) 82 U/L (17-59); Albumin 3.3 g/dl (3.5-5.0); Alkaline Phosphatase 50 U/L (38-126); Blood Urea Nitrogen 30 mg/dl (9-20); Calcium 8.4 mg/dl (8.4-10.2); Carbon Dioxide 24 mmol/L (22-30); Chloride 103 mmol/L (98-107); Estimated Creatinine Clearance 23 ml/min; Glucose 109 mg/dl (70-99); Sodium 135 mmol/L (135-145); Total Bilirubin 1.4 mg/dl (0.2-1.3); eGFR 28.99
[2024-08-27] MEDS: ROCEPHIN 1000 MG IV (04:19)
--- NOTE | 2024-08-27 05:32 | HPS.HSE ---
Family Physician
-
Family Physician: Edison Knig
Chief Complaint
-
Fall
History of Present Illness
Patient is an 84y M with PMH significant for metastatic renal cell carcinoma followed at [facility] with chronic Coburn and chronic dysphagia who presents to ED complaining of fall at home. Patient states that he stood from his wheelchair
yesterday afternoon and the chair slid backwards. he fell backwards and struck his had on the floor. He denies any LOC / syncope. He denies any prodrome of lightheadedness, dizziness, chest pain, dyspnea, etc prior to the fall. Patient was
unable to get up and unfortunately remained on the floor for > 30 minutes before he was able to call for help successfully.
Patient was transported to the ED for further evaluation.
At the time of my exam, he is resting comfortably. He denies any headache, neck pain, etc.
Patient denies any recent fevers / chills, cough, dyspnea, etc.
He has been having ongoing swallowing issues and is scheduled for endoscopy early next month.
Patient seems to describe more loss of appetite than actual dysphagia or odynophagia.
Medical History
Past Medical History
Past Medical History: Reports Other
Additional Past Medical History:
Metastatic Renal Cell Carcinoma
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
HTN
BPH / VAN with Chronic Coburn
Hypothyroidism
Depression
Past Surgical History: Reports Other
Additional Past Surgical History:
Bilateral inguinal hernia
Septoplasty
Left nephrectomy secondary to renal carcinoma
Social History
Tobacco: Former Smoker (Quit 50 years ago)
Alcohol: None
Drug: None
Personal: Single
Living: Assisted Living ([facility])
Employment: Retired
Family History
Family History: Other (Mother [place] age 65 history of COPD, father malignant tumor near left ear unsure type, 1 sister after fall 1 brother living unsure)
Allergies / Home Medications
Allergies reflects when Allergies were last updated in [employer].
Home Medications with original date entered in [employer]
Allergy/Medication List:
Allergies
Allergy/AdvReac Type Severity Reaction Status Date / Time
Penicillins Allergy Unknown Verified 08/26/24 19:31
Sulfa (Sulfonamide Allergy Unknown Verified 08/26/24 19:31
Antibiotics)
Home Medications
acetaminophen 325 mg tablet 650 mg PO Q6HPRN PRN mild pain 05/12/24
amlodipine 5 mg tablet 5 mg PO DAILY Blood Pressure 05/12/24
ascorbic acid (vitamin C) 500 mg tablet (Vitamin C) 500 mg PO DAILY Supplement 05/12/24
aspirin 81 mg tablet,delayed release 81 mg PO DAILY Blood Clot Prevention/Tx 05/12/24
atorvastatin 20 mg tablet 20 mg PO HS High Cholesterol 05/12/24
bisacodyl 10 mg rectal suppository 10 mg KS [id number] PRN constipation, mom ineffective 05/12/24
cabozantinib 20 mg tablet (Cabometyx) 20 mg PO DAILY Cancer 05/12/24
cholecalciferol (vitamin D3) 50 mcg (2,000 unit) tablet (Vitamin D3) 50 mcg PO DAILY Supplement 05/12/24
fenofibrate nanocrystallized 145 mg tablet 145 mg PO DAILY Constipation 05/12/24
finasteride 5 mg tablet 5 mg PO DAILY Urinary Issue 05/12/24
folic acid 1 mg tablet 1 mg PO DAILY Supplement 05/12/24
levothyroxine 75 mcg tablet 75 mcg PO DAILY Thyroid 05/12/24
lidocaine 5 % topical patch 1 patch topical DAILY Pain 05/12/24
magnesium hydroxide 400 mg/5 mL oral suspension (Milk of Magnesia) 30 ml PO DAILYPRN PRN constipation 05/12/24
methocarbamol 500 mg tablet 1,000 mg PO Q6HPRN PRN muscle spasms 05/12/24
omega [id number]-skv-fish oil 1,200 mg (144 mg-216 mg) capsule (Fish Oil) 1,200 cap PO DAILY Supplement/cholesterol 05/12/24
sodium phosphates 19 gram-7 gram/118 mL enema (Fleet Enema) 118 ml KS DAILYPRN PRN constipation 05/12/24
tamsulosin 0.4 mg capsule 0.8 mg PO NOON Urinary Issue 05/12/24
trazodone 100 mg tablet 100 mg PO HS Sleep 05/12/24
cephalexin 500 mg capsule 500 mg PO QID #16 caps 05/22/24
oxycodone 5 mg tablet 5 mg PO Q8HPRN PRN moderate pain #6 tabs 05/22/24
pantoprazole 40 mg tablet,delayed release (Protonix) 40 mg PO BID #60 tabs 05/22/24
dutasteride 0.5 mg capsule (Avodart) 0.5 mg PO DAILY 08/27/24
Review of Systems
-
History Source: Patient
A 12 point ROS was completed and negative except as noted: Yes
Constitutional: Reports Fatigue; Denies Fever or Chills
Respiratory: Denies Cough or Trouble Breathing
Cardiac: Denies Chest Pain or Palpitations
Abdomen/GI: Reports Anorexia; Denies Abdominal Pain, Nausea, Vomiting or Diarrhea
: Reports Coburn; Denies Flank Pain
Musculoskeletal: Reports Other (Back Pain); Denies Edema
Neurological: Reports Weakness; Denies Dizzy or Headache
Psych: Reports Depression; Denies Anxiety
Physical Exam
Vital Signs
Vital Signs
Temp Pulse Resp BP Pulse Ox
98.9 F 80 20 110/73 98
08/27/24 04:35 08/27/24 04:35 08/27/24 04:35 08/27/24 04:35 08/27/24 04:35
Physical Exam
General: Other (84y M in no acute distress.)
HEENT: Moist mucous membranes, PERRLA and Other (Small abrasion posterior scalp without active bleeding.)
Respiratory: Clear; No Wheezes, Rales or Rhonchi
Cardiac: S1/S2 and Regular Rhythm; No Murmur
GI: Soft, Non Tender, Non Distended and Normal Bowel Sounds
Genito-urinary: Other (Coburn in place draining yellow urine with some sediment.)
Musculoskeletal: No Clubbing, No Cyanosis and No Edema
Neuro: AO x 3
Laboratory Results
-
08/26/24 20:11
08/27/24 01:13
Laboratory Results
Total Bilirubin 1.4 mg/dl (0.2-1.3) H 08/27/24 01:13
AST 82 U/L (17-59) H 08/27/24 01:13
ALT 49 U/L (0-50) 08/27/24 01:13
Alkaline Phosphatase 50 U/L (38-126) 08/27/24 01:13
Impression/Plan
-
A/P: Patient is an 84y M with PMH significant for metastatic renal cell carcinoma, VAN with chronic Coburn and gait dysfunction who presents to ED for evaluation s/p fall at home.
Fall / Head Injury
- Admit for further evaluation and treatment.
- CT head and CT C-spine with no evidence of acute injury.
- No suspicious prodrome prior to fall, no LOC, etc.
- PT / OT evaluations.
- Monitor for any new neurologic symptoms, worsening headache, etc.
MONA
- SCr = 2.3 compared to known baseline of around 1.0.
- Has Coburn catheter in place chronically.
- Poor appetite / swallow issues recently - ? hypovolemia.
- IVF support and follow for improvement in renal function.
- Avoid nephrotoxic agents / hypotension.
BPH with VAN
Chronic Indwelling Coburn
CAUTI
- UA is suspicious for UTI.
- Will continue with IV abx for now pending culture data.
- Maintain Coburn catheter.
- Continue current medications for BPH.
GE Junction Stenosis
Dysphagia
- Chronic / ongoing issue - sched for EGD / dilation with Dr. Mcgowan in August.
- Liquid diet for now as tolerated. Encourage PO intake as able.
- Follow for any pain, GERD symptoms, etc.
Abnormal LFTs
- LFTs have been somewhat abnormal since last admission.
- No CPK elevation to suggest muscular source.
- Check US RUQ for further evaluation.
- Follow LFTs for any changes.
Benign Hypertension
- Stable. Hold amlodipine acutely and follow BP.
Metastatic Renal Cell Cancer with Mets to Spine
Ambulatory Dysfunction
LE Weakness
- CT C-spine done in the ED shows T2 lesion with encroachment into the spinal column.
- Check MRI for further evaluation. Unable to administer contrast at present given MONA.
- Follow-up with Oncology at [place] [facility] [place] after discharge.
Hypothyroidism
- Stable. Continue T4 supplementation
DVT Prophylaxis: SCDs
Code Status: Full
[2024-08-27] MEDS: SYNTHROID 75 MCG PO (09:58)
[2024-08-27] MEDS: LOW STRENGTH ASPIRIN 81 MG PO (09:58)
[2024-08-27] MEDS: PROTONIX 40 MG PO ×2 (10:00→20:46)
[2024-08-27 11:37] LABS: TSH Reflex To Free T4 1.24 uIU/ml (0.47-4.68)
[2024-08-27] MEDS: PROSCAR 5 MG PO (12:21)
[2024-08-27] MEDS: NSS 1000 IV ×2 (12:21→22:49)
[2024-08-27] MEDS: FLOMAX 0.8 MG PO (12:21)
--- NOTE | 2024-08-27 14:36 | W.PN.HOSP.TC ---
Today's Communication/Plan
-
Continue with IV ceftriaxone
PT/OT evaluation
Follow urine culture
CBC and temperature curve
Assessment / Plan
Assessment / Plan
#Ambulatory dysfunction
#Lower extremity weakness
-Mechanical fall in nature, pressed along button on his electric wheelchair which propelled him forward and onto the ground
-CT head here without any signs of intracranial hemorrhage, nor other acute finding
-MRI here showed significant bony metastasis, most prominent at T2 vertebrae
-MRI without acute findings such as cord impingement
-PT/OT with expected placement to SNF
#CAUTI, PoA -- suspect this is not present, more likely colonization
#BPH with bladder outlet obstruction
#Chronic indwelling Coburn catheter
-Urinalysis on arrival consistent with infection though does have chronic Coburn
-No fevers or leukocytosis as of today; did have leukopenia on admission
-Patient denies bladder pain, malodorous urine, cloudy/infected looking urine
-Upon arrival was started on IV ceftriaxone empirically, will discontinue
-Suspect UA findings due to colonization in the context of chronic Coburn
-Trend CBC and temperature curve
#Prerenal MONA
-Presented with creatinine 2.3, baseline creatinine near 1.0
-Has chronic Coburn, abdomen US without signs of hydronephrosis
-Has had reportedly poor appetite recently, started on IVF here
-Continue to trend BMP on IV fluids
-Avoid nephrotoxic agents and hypotension
#Chronic dysphagia
#GE junction stenosis
-Plan to have EGD with dilation with Dr. Mcgowan in August
-Currently on liquid diet
#Metastatic RCC s/p left nephrectomy
#Hepatic lesions on imaging
-Known metastases to spine, liver, multiple other sources
-Likely associated with his chronically abnormal LFTs
-MRI T-spine today shows scattered metastatic disease, most prominent in T2 vertebral body
-Will need outpatient follow-up with his oncologist at [place]
-Will need formal MRI liver as OP
#Hypertension
-Home medications include amlodipine
-No known history of hypertensive systemic disease
-Holding amlodipine for now, monitor vitals
#Hypothyroidism
-Unclear etiology, home medications include levothyroxine
-No signs or symptoms of thyroid dysfunction
DVT prophylaxis: SCDs
Diet: Liquid diet
CODE STATUS: Full code
Anticipated Discharge: 24 - 48 hours
Subjective/Interval History
-
Date of Service: August 27, 2024
Seen and examined at the bedside. No acute events since admission. AFVSS as of now.
When speaking with the patient, he states he was using his electric wheelchair yesterday when he pushed the wrong button and he was thrown forward out of the chair causing him to hit his head. Denies any light headedness, dizziness prior to this
occurrence. States he was initially not going to come to the ED though had ongoing pain where he hit his head following the fall, which was the reason he came to the hospital. He denies any urinary complaints, states his urine has been normal in
smell and appearance
Was leukopenic on arrival however white cells WNL since starting antibiotics. MRI today did show significant bony metastasis of the thoracic spine
Denies any acute complaints.
Objective Data
-
Vital Signs:
Vital Signs
Temp Pulse Resp BP Pulse Ox
97.4 F 87 18 134/72 99
08/27/24 07:00 08/27/24 07:00 08/27/24 07:00 08/27/24 07:00 08/27/24 07:00
I&O
08/26/24 08/27/24 08/28/24
06:59 06:59 06:59
Intake Total 2049
Output Total 300 / 300
Balance 1750 / 1750
Review of Systems
-
History Source: Patient
All other systems: Reviewed and negative
Physical Exam
-
General: Well Developed, Well Nourished, No Apparent Distress and Comfortable
HEENT: Normocephalic, Atraumatic, Moist Mucous Membranes and Anicteric
Respiratory: Clear to Auscultation and Non Labored Respirations; Negative Wheezes, Rales or Rhonchi
Cardiac: Regular Rhythm and S1/S2; Negative Murmur, Rub or Gallop
GI: Soft, Nontender, Nondistended and Normal Bowel Sounds
Musculoskeletal: No Clubbing, No Cyanosis and No Edema
Skin: Warm and Dry; Negative Rash
Neuro: AO x 3 and Nonfocal/Grossly Intact
Psych: Calm
Data Reviewed
-
MRI: Report Reviewed by me and Discussed with Patient
Labs: Labs Reviewed by me and Discussed with Patient
[2024-08-27] MEDS: DESYREL 100 MG PO (20:47)
[2024-08-28 03:03] VITALS: BP 101/56
[2024-08-28] MEDS: SYNTHROID 75 MCG PO (05:12)
[2024-08-28 06:00] VITALS: BMI 26.7
[2024-08-28] MEDS: NSS 1000 IV ×3 (07:43→16:35)
[2024-08-28] MEDS: MYCOSTATIN CREAM 1 APPLIC TOPICAL ×2 (07:43→19:24)
[2024-08-28] MEDS: PROSCAR 5 MG PO (07:44)
[2024-08-28] MEDS: PROTONIX 40 MG PO ×2 (07:44→19:25)
[2024-08-28] MEDS: LOW STRENGTH ASPIRIN 81 MG PO (07:44)
[2024-08-28 08:40] VITALS: BP 107/68
[2024-08-28 08:56] LABS: Hematocrit 32.2 % (39.0-52.0); Mean Corp Hgb Conc. 34.2 g/dL (33.0-37.0); Mean Corpuscular Hgb 31.4 pg (27.0-31.0); Platelet Count 144 10^3/uL (130-400); Red Cell Dist. Width 16.4 % (11.5-14.5); White Blood Cell Count 3.6 10^3/uL (4.8-10.8)
--- NOTE | 2024-08-28 09:19 | W.PN.HOSP.TC ---
Today's Communication/Plan
-
see bold
Assessment / Plan
Assessment / Plan
#Ambulatory dysfunction
#Lower extremity weakness
-Mechanical fall in nature, pressed along button on his electric wheelchair which propelled him forward and onto the ground
-CT head here without any signs of intracranial hemorrhage, nor other acute finding
-MRI here showed significant bony metastasis, most prominent at T2 vertebrae
-MRI without acute findings such as cord impingement
-PT/OT - rec HH, from assisted living
#CAUTI, POA -- suspect this is not present, more likely colonization
#BPH with bladder outlet obstruction
#Chronic indwelling Driscoll catheter
-Urinalysis on arrival consistent with infection though does have chronic Driscoll
-No fevers or leukocytosis; did have leukopenia on admission
-Patient denies bladder pain, malodorous urine, cloudy/infected looking urine
-Upon arrival was started on IV ceftriaxone empirically in the ER, will discontinue
-Suspect UA findings due to colonization in the context of chronic Driscoll
-Trend CBC and temperature curve off antibiotics
#Prerenal MONA
-Presented with creatinine 2.3, baseline creatinine near 1.0
-Has chronic Driscoll, abdomen US without signs of hydronephrosis
-Has had reportedly poor appetite recently, started on IVF here
-Continue to trend BMP on IV fluids
-Avoid nephrotoxic agents and hypotension
-Creatinine improving at 1.9 today
#Chronic dysphagia
#GE junction stenosis
-Plan to have EGD with dilation with Dr. Mcgowan in 08/31/23
-Currently on liquid diet
#Metastatic RCC s/p left nephrectomy
#Hepatic lesions on imaging
-Known metastases to spine, liver, multiple other sources
-Likely associated with his chronically abnormal LFTs
-MRI T-spine today shows scattered metastatic disease, most prominent in T2 vertebral body
-Will need outpatient follow-up with his oncologist at [place]
-Will need formal MRI liver as OP
#Hypertension
-Home medications include amlodipine
-No known history of hypertensive systemic disease
-Holding amlodipine for now, blood pressure normotensive off amlodipine
#Hypothyroidism
-Continue levothyroxine
-No signs or symptoms of thyroid dysfunction
DVT prophylaxis: Subcu Lovenox
Diet: Full liquid diet
CODE STATUS: Full code
Updated son on phone 08/28
Total time spent to see the patient on the floor, examine the patient, review data and lab results, discuss treatment plan with patient, nursing staff around 51 minutes.
Physical Exam
General: No acute distress
HEENT: Normocephalic, Atraumatic, EOMI, MMM
Respiratory: Clear to Auscultation bilaterally
Cardiac: Normal S1/S2, Regular Rate and Rhythm
GI: Soft, Nontender, Nondistended, Normal Bowel Sounds
: +Chronic driscoll
Extremities: No Clubbing, Cyanosis, or Edema
Neuro: Nonfocal/Grossly Intact
Psych: Calm, Cooperative
Derm: No Visible lesions
Anticipated Discharge: 24 - 48 hours
Subjective/Interval History
-
Date of Service: August 28, 2024
Patient denies feeling weak. No fever, no chest pain. No shortness of breath, no vomiting.
Objective Data
-
Labs:
Laboratory Results
08/28/24
08:17
WBC 3.6 L
Hgb 11.0 L
Hct 32.2 L
Plt Count 144
Sodium Pending
Potassium Pending
Chloride Pending
Carbon Dioxide Pending
BUN Pending
Creatinine Pending
Glucose Pending
Calcium Pending
Vital Signs:
Vital Signs
Temp Pulse Resp BP Pulse Ox
97.2 F 70 18 107/68 97
08/28/24 08:40 08/28/24 08:40 08/28/24 08:40 08/28/24 08:40 08/28/24 08:40
I&O
08/27/24 08/28/24 08/29/24
06:59 06:59 06:59
Intake Total 2049 / 2049 220 / 220 480 / 480
Output Total 300 / 300 1050 / 1050
Balance 1750 / 1750 -830 / -830 480 / 480
[2024-08-28 11:18] VITALS: BP 107/70
[2024-08-28] MEDS: FLOMAX 0.8 MG PO (11:23)
[2024-08-28 12:05] LABS: Blood Urea Nitrogen 19 mg/dl (9-20); Calcium 7.8 mg/dl (8.4-10.2); Carbon Dioxide 23 mmol/L (22-30); Chloride 102 mmol/L (98-107); Estimated Creatinine Clearance 27 ml/min; Glucose 128 mg/dl (70-99); Potassium 3.7 mmol/L (3.5-5.1); Sodium 135 mmol/L (135-145); eGFR 34.57
[2024-08-28 15:00] VITALS: BP 109/71; BP 117/65; BP 118/75; PULSE 82; PULSE 92
--- NOTE | 2024-08-28 16:17 | CM ---
senior portfolio manager reviewed patient's chart and met with patient and patient states that he lives at [facility], patient reports he is independent with adl's and uses a walker with ambulation.
Call Placed to admissions to check on Report and Fax numbers, no answer.
[2024-08-28] MEDS: LOVENOX 30 MG SC (17:14)
[2024-08-28 18:39] LABS: Urine Albumin Negative (Neg - Trace); Urine Bilirubin Negative (Negative); Urine Character Clear (Clear); Urine Color Yellow; Urine Glucose Negative (Negative); Urine Ketone Negative (Negative); Urine Leukocyte 2+ (Negative); Urine Nitrite Negative (Negative); Urine Occult Blood Negative (Negative); Urine Urobilinogen Negative (Neg - 1+)
[2024-08-28 19:04] LABS: Urine Bacteria Few (Negative); Urine Red Blood Cell 0-2 /HPF (0-2); Urine Squamous Cell 0-2 /LPF (Few); Urine White Cell 26-30 /HPF (0-5)
[2024-08-28 19:35] VITALS: BP 114/66; BP 117/66; BP 99/56; PULSE 79; PULSE 80; PULSE 87
[2024-08-28] MEDS: DESYREL 100 MG PO (21:32)
[2024-08-28 23:16] VITALS: BP 110/70
[2024-08-29] VITALS (7 sets, daily range): BP systolic 106–139; BP diastolic 62–76; PULSE 71–83; BMI 27.0
[2024-08-29] MEDS: NSS 1000 IV ×2 (02:15→17:50)
[2024-08-29] MEDS: SYNTHROID 75 MCG PO (05:32)
--- NOTE | 2024-08-29 09:05 | W.PN.HOSP.TC ---
Today's Communication/Plan
-
Continue IV fluid
Trend creatinine
Follow-up on urine culture
Discharge home tomorrow
Assessment / Plan
Assessment / Plan
#Ambulatory dysfunction
#Lower extremity weakness
-Mechanical fall in nature, pressed along button on his electric wheelchair which propelled him forward and onto the ground
-CT head here without any signs of intracranial hemorrhage, nor other acute finding
-MRI here showed significant bony metastasis, most prominent at T2 vertebrae
-MRI without acute findings such as cord impingement
-PT/OT - rec HH, from assisted living
-Plan for discharge home tomorrow
#CAUTI, POA -- suspect this is not present, more likely colonization
#BPH with bladder outlet obstruction
#Chronic indwelling Driscoll catheter
-Urinalysis on arrival consistent with infection though does have chronic Driscoll
-No fevers or leukocytosis; did have leukopenia on admission
-Patient denies bladder pain, malodorous urine, cloudy/infected looking urine
-Upon arrival was started on IV ceftriaxone empirically in the ER, which was subsequently discontinued
-Suspect UA findings in ER were due to colonization in the context of chronic Driscoll
-Driscoll changed 08/29, shows few bacteria, 2+LE
-Follow-up urine culture
#Prerenal MONA
-Presented with creatinine 2.3, baseline creatinine near 1.0
-Has chronic Driscoll, abdomen US without signs of hydronephrosis
-Has had reportedly poor appetite recently, started on IVF here
-Continue to trend BMP on IV fluids
-Avoid nephrotoxic agents and hypotension
-Creatinine improving at 1.7 today, was 1.9
#Chronic dysphagia
#GE junction stenosis
-Plan to have EGD with dilation with Dr. Mcgowan in 08/31/23
-Currently tolerating pur�ed diet
#Metastatic RCC s/p left nephrectomy
#Hepatic lesions on imaging
-Known metastases to spine, liver, multiple other sources
-Likely associated with his chronically abnormal LFTs
-MRI T-spine today shows scattered metastatic disease, most prominent in T2 vertebral body
-Will need outpatient follow-up with his oncologist at [place]
-Will need formal MRI liver as OP
#Hypertension
-Home medications include amlodipine
-No known history of hypertensive systemic disease
-Holding amlodipine for now, resume if it becomes elevated
#Hypothyroidism
-Continue levothyroxine
-No signs or symptoms of thyroid dysfunction
#Stage 2 sacral pressure injury, POA.
-Wound care
DVT prophylaxis: Subcu Lovenox
Diet: Full liquid diet
CODE STATUS: Full code
Updated son on phone 08/28
Total time spent to see the patient on the floor, examine the patient, review data and lab results, discuss treatment plan with patient, nursing staff around 41 minutes.
Physical Exam
General: No acute distress
HEENT: Normocephalic, Atraumatic, EOMI, MMM
Respiratory: Clear to Auscultation bilaterally
Cardiac: Normal S1/S2, Regular Rate and Rhythm
GI: Soft, Nontender, Nondistended, Normal Bowel Sounds
: +Chronic driscoll
Extremities: No Clubbing, Cyanosis, or Edema
Neuro: Nonfocal/Grossly Intact
Psych: Calm, Cooperative
Derm: Stage II sacral pressure injury
Anticipated Discharge: Within 24 hours
Subjective/Interval History
-
Date of Service: August 29, 2024
No acute events overnight. No chest pain, no shortness of breath. No fever, no vomiting.
Objective Data
-
Labs:
Laboratory Results
08/29/24
06:00
Sodium Pending
Potassium Pending
Chloride Pending
Carbon Dioxide Pending
BUN Pending
Creatinine Pending
Glucose Pending
Calcium Pending
Vital Signs:
Vital Signs
Temp Pulse Resp BP Pulse Ox
97.4 F 74 18 116/72 98
08/29/24 07:45 08/29/24 07:45 08/29/24 07:45 08/29/24 07:45 08/29/24 07:45
I&O
08/28/24 08/29/24 08/30/24
06:59 06:59 06:59
Intake Total 220 / 220 2059 / 2059
Output Total 1050 / 1050 1750 / 1750
Balance -830 / -830 310 / 310
[2024-08-29] MEDS: PROSCAR 5 MG PO (09:28)
[2024-08-29] MEDS: PROTONIX 40 MG PO ×2 (09:28→21:10)
[2024-08-29] MEDS: LOW STRENGTH ASPIRIN 81 MG PO (09:28)
[2024-08-29] MEDS: MYCOSTATIN CREAM 1 APPLIC TOPICAL ×2 (09:28→21:12)
--- NOTE | 2024-08-29 09:52 | PN.CDI ---
CDI
- -
CDI:
Physician Documentation Request
Admit Date: 08/27/24 05:56
Dear Doctor Do,
Patient admitted with ambulatory dysfunction.
08/27 Nursing skin assessment, 'Stage 2 sacral pressure injury, POA.'
Physician documentation of the type and location of wounds is required for compliant documentation. Based on the above clinical findings and your assessment, please provide the following in your progress note:
Type (etiology) of ulcer/wound:
- Pressure (decubitus) ulcer
- Other
- Unable to determine
For a pressure ulcer, please also include the stage* of the ulcer:
- Stage 1 - Skin intact, non-blanchable redness
- Stage 2 - Partial thickness loss of dermis, includes intact or open blister
- Stage 3 - Full thickness tissue not including bone, tendon or muscle
- Stage 4 - Full thickness tissue loss, including exposed bone, tendon or muscle
- Unstageable - Full thickness loss in which the base of the ulcer is covered by slough (yellow, bruno, hernandez, green or brown) and/or eschar (bruno, brown or black) in the wound bed.
- Unable to determine
Use of terms such as suspected, likely, concern for, or probable (associated with a specific diagnosis that is being evaluated, monitored, or treated as if it exists) are acceptable and can be coded in the inpatient setting, when documented at the
time of discharge.
Thank you,
Marisa DAILEY,RN,CCDS
CDI Specialist
Available via tiger text
Please use your independent medical judgment in providing your response.
*Source: National Pressure Ulcer Advisory Panel (NPUAP)
[2024-08-29] MEDS: LIDOCAINE URO-JET 2% 1 SYRINGE TOPICAL (11:26)
[2024-08-29 11:50] LABS: Blood Urea Nitrogen 16 mg/dl (9-20); Calcium 7.7 mg/dl (8.4-10.2); Carbon Dioxide 22 mmol/L (22-30); Chloride 104 mmol/L (98-107); Estimated Creatinine Clearance 30 ml/min; Glucose 91 mg/dl (70-99); Potassium 3.9 mmol/L (3.5-5.1); Sodium 136 mmol/L (135-145); eGFR 39.51
[2024-08-29 13:20] LABS: Urine Albumin Negative (Neg - Trace); Urine Bilirubin Negative (Negative); Urine Character Clear (Clear); Urine Color Straw; Urine Glucose Negative (Negative); Urine Ketone Negative (Negative); Urine Leukocyte 2+ (Negative); Urine Nitrite Negative (Negative); Urine Occult Blood Trace (Negative); Urine Urobilinogen Negative (Neg - 1+)
[2024-08-29] MEDS: FLOMAX 0.8 MG PO (13:24)
[2024-08-29 14:39] LABS: Urine Amorphous Seen; Urine Red Blood Cell 0-2 /HPF (0-2); Urine Squamous Cell 0-2 /LPF (Few)
[2024-08-29 14:40] LABS: Urine Bacteria Few (Negative)
--- NOTE | 2024-08-29 15:53 | CM ---
Chart reviewed and spring encaser met with patient and patient expressed concerns about his insurance that is due to change in August, patient made aware that he needs to provide new insurance to the hospital but his insurance that he was admitted
under will be billed.
Plan: Patient to return to [facility] when stable.
Report [phone]
fax [phone]
[2024-08-29] MEDS: LOVENOX 30 MG SC (17:52)
[2024-08-29] MEDS: DESYREL 100 MG PO (21:10)
[2024-08-30 03:34] VITALS: BP 128/55
--- NOTE | 2024-08-30 04:55 | PTCARENOTE ---
Assumed care of pt from previous nurse. Pt denies pain. Pt driscoll draining without issue. Pt is on tele running nsr. call salas is within reach, pt rings jace. will cont to monitor.
[2024-08-30 05:51] LABS: Blood Urea Nitrogen 18 mg/dl (9-20); Calcium 7.4 mg/dl (8.4-10.2); Carbon Dioxide 23 mmol/L (22-30); Chloride 106 mmol/L (98-107); Estimated Creatinine Clearance 30 ml/min; Glucose 103 mg/dl (70-99); Sodium 135 mmol/L (135-145); eGFR 39.51
[2024-08-30 06:00] VITALS: BMI 26.8
[2024-08-30] MEDS: NSS 1000 IV (06:36)
[2024-08-30] MEDS: SYNTHROID 75 MCG PO (06:37)
[2024-08-30 07:00] VITALS: BP 134/74
--- NOTE | 2024-08-30 08:09 | W.PN.HOSP.TC ---
Today's Communication/Plan
-
Discharge today
Assessment / Plan
Assessment / Plan
#Ambulatory dysfunction
#Lower extremity weakness
-Mechanical fall in nature, pressed along button on his electric wheelchair which propelled him forward and onto the ground
-CT head here without any signs of intracranial hemorrhage, nor other acute finding
-MRI here showed significant bony metastasis, most prominent at T2 vertebrae
-MRI without acute findings such as cord impingement
-PT/OT - rec HH, from assisted living
-Medically stable for discharge today
#CAUTI ruled out
#Colonization of Driscoll catheter with bacteria
#BPH with bladder outlet obstruction
#Chronic indwelling Driscoll catheter
-Urinalysis on arrival consistent with infection though does have chronic Driscoll
-No fevers or leukocytosis; did have leukopenia on admission
-Patient denies bladder pain, malodorous urine, cloudy/infected looking urine
-Upon arrival was started on IV ceftriaxone empirically in the ER, which was subsequently discontinued
-Suspect UA findings in ER were due to colonization in the context of chronic Driscoll
-Driscoll changed 08/29, shows few bacteria, 2+LE, urine culture negative
#Prerenal MONA
-Presented with creatinine 2.3, baseline creatinine near 1.0
-Has chronic Driscoll, abdomen US without signs of hydronephrosis
-Has had reportedly poor appetite recently, started on IVF here
-Continue to trend BMP on IV fluids
-Avoid nephrotoxic agents and hypotension
-Creatinine improving at 1.7 today, was 1.9, was 2.3 upon admission
-Medically stable for discharge, patient has been counseled to avoid NSAIDs
#Chronic dysphagia
#GE junction stenosis
-Plan to have EGD with dilation with Dr. Mcgowan in 08/31/23
-Currently tolerating pur�ed diet
#Metastatic RCC s/p left nephrectomy
#Hepatic lesions on imaging
-Known metastases to spine, liver, multiple other sources
-Likely associated with his chronically abnormal LFTs
-MRI T-spine today shows scattered metastatic disease, most prominent in T2 vertebral body
-Will need outpatient follow-up with his oncologist at [place]
-Will need formal MRI liver as OP
#Hypertension
-Home medications include amlodipine
-No known history of hypertensive systemic disease
-Resume amlodipine upon discharge
#Hypothyroidism
-Continue levothyroxine
-No signs or symptoms of thyroid dysfunction
#Stage 2 sacral pressure injury, POA.
-Wound care
DVT prophylaxis: Subcu Lovenox
Diet: Full liquid diet
CODE STATUS: Full code
Updated son on phone 08/30
Physical Exam
General: No acute distress
HEENT: Normocephalic, Atraumatic, EOMI, MMM
Respiratory: Clear to Auscultation bilaterally
Cardiac: Normal S1/S2, Regular Rate and Rhythm
GI: Soft, Nontender, Nondistended, Normal Bowel Sounds
: +Chronic driscoll
Extremities: No Clubbing, Cyanosis, or Edema
Neuro: Nonfocal/Grossly Intact
Psych: Calm, Cooperative
Derm: Stage II sacral pressure injury
Anticipated Discharge: Today
Subjective/Interval History
-
Date of Service: August 30, 2024
Patient is alert, awake, oriented x 4. Denies chest pain, denies shortness of breath. No fever, no vomiting. He is tolerating his pur�ed diet. He is eager for discharge today
Objective Data
-
Labs:
Laboratory Results
08/30/24
04:09
Sodium 135
Potassium 4.0
Chloride 106
Carbon Dioxide 23
BUN 18
Creatinine 1.7 H
Glucose 103 H
Calcium 7.4 L
Vital Signs:
Vital Signs
Temp Pulse Resp BP Pulse Ox
98.4 F 79 16 128/55 98
08/30/24 03:34 08/30/24 03:34 08/30/24 03:34 08/30/24 03:34 08/30/24 03:34
I&O
08/29/24 08/30/24 08/31/24
06:59 06:59 06:59
Intake Total 2059 / 2059 2640 / 2640
Output Total 1750 / 1750 1850 / 1850
Balance 310 / 310 790 / 790
--- NOTE | 2024-08-30 10:07 | CM ---
CM met with pt at bedside.
IMM reviewed, signed and original on chart.
Reviewed PT eval with pt. Pt is agreeable with home PT. Offered choice of agency and preference is for [facility] which is located at his facility. Will ask attending for script and send referral via [facility].
[2024-08-30] MEDS: MYCOSTATIN CREAM 1 APPLIC TOPICAL (10:40)
[2024-08-30] MEDS: PROTONIX 40 MG PO (10:40)
[2024-08-30] MEDS: LOW STRENGTH ASPIRIN 81 MG PO (10:40)
[2024-08-30] MEDS: PROSCAR 5 MG PO (10:40)
--- NOTE | 2024-08-30 10:57 | W.DCSUMMARY ---
Discharge Summary
Discharge Data
Date of Admission: 08/27/24
Date of Discharge: 08/30/24
-
Pending Results: No
Hospital Course
Discharge diagnosis:
Acute kidney injury superimposed on stage IIIa chronic kidney disease
Bacteriuria with colonized Driscoll
Ambulatory dysfunction
Lower extremity weakness
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
Metastatic renal cell carcinoma status post left nephrectomy with metastases to the spine, liver
Essential hypertension
Hypothyroidism
Stage II sacral pressure injury, present upon admission
Hospital course:
84-year-old male with a past medical history of metastatic renal cell carcinoma followed at [facility] with chronic Driscoll, and chronic dysphagia on a pur�ed diet presented to the ER for evaluation after falling out of his wheelchair. His workup in
the ER, including head CT and CT C-spine, was negative for acute abnormality.
Patient was admitted for acute kidney injury superimposed on stage IIIa chronic kidney disease. He received IV fluids, his creatinine improved to 1.7 on the day of discharge, down from 2.3 upon admission. He has been counseled to avoid all
zlkw-gmy-qpljnaa NSAID medications.
Suspect that his acute kidney injury was secondary to dehydration. He has chronic dysphagia secondary to gastroesophageal junction stenosis. He tolerated a pur�ed diet. He has an appointment with Dr. Mcgowan on 08/31/2024 for esophageal dilation.
Initially it was suspected that patient may have a urinary tract infection. He has a chronic Driscoll, and the urine analysis sent in the ER was from the chronic Driscoll. Patient's Driscoll was changed on 08/29/2024. Urine analysis and urine culture
obtained after the driscoll change was negative. He does not have a urinary tract infection. Patient has bacteruria and colonization of his Driscoll.
Patient's multiple medical conditions have been optimized. He is medically stable for discharge. He needs to follow-up with his primary care doctor in 1 week, and to keep his appointment with Dr. Mcgowan on 08/31/2024 as scheduled.
Disposition: Home with home PT
Discharge planning: Required 41-minute
Discharge Plan
-
Patient Disposition: Home with Home Care
Discharge Diagnosis/Procedures: Acute kidney injury, chronic Driscoll catheter colonized with bacteria, dysphagia secondary to esophageal stenosis
Condition: Good
Diet: Other diet
Additional Diets: Pureed diet
Activity: As tolerated
Driving Restrictions: As prior to admission
Other Services: VN and PT
Activity Restrictions/Additional Instructions:
You have acute kidney injury. Your kidney function is improved, but still not normal.
Please avoid all oval-iic-mhwiiwu NSAID medications such as ibuprofen, naproxen, Aleve, Motrin, Advil.
These medications will worsen your kidney function.
Keep your appointment with Dr. Mcgowan on 08/31/2024 for your esophageal dilation.
Follow-up with your primary care doctor in 1 week.
Referrals:
Edison King DO [Family Provider] - in one week
Prescriptions:
Continued
methocarbamol 500 mg Tablet
1,000 mg PO Q6HPRN PRN (Reason: muscle spasms)
acetaminophen 325 mg Tablet
650 mg PO Q6HPRN PRN (Reason: mild pain)
atorvastatin 20 mg Tablet
20 mg PO HS
amlodipine 5 mg Tablet
5 mg PO DAILY
aspirin 81 mg Tablet,Delayed Release (Dr/Ec)
81 mg PO DAILY
levothyroxine 75 mcg Tablet
75 mcg PO DAILY
magnesium hydroxide [Milk of Magnesia] 400 mg/5 mL Suspension
30 ml PO DAILYPRN PRN (Reason: constipation)
ascorbic acid (vitamin C) [Vitamin C] 500 mg Tablet
500 mg PO DAILY
tamsulosin 0.4 mg Capsule
0.8 mg PO NOON
trazodone 100 mg Tablet
100 mg PO HS
bisacodyl 10 mg Suppository
10 mg AK [id number] PRN (Reason: constipation, mom ineffective)
lidocaine 5 % Adhesive Patch,Medicated
1 patch TOPICAL DAILY
Fleet Enema 19-7 gram/118 mL Enema
118 ml AK DAILYPRN PRN (Reason: constipation)
folic acid 1 mg Tablet
1 mg PO DAILY
finasteride 5 mg Tablet
5 mg PO DAILY
fenofibrate nanocrystallized 145 mg Tablet
145 mg PO DAILY
cholecalciferol (vitamin D3) [Vitamin D3] 50 mcg (2,000 unit) Tablet
50 mcg PO DAILY
omega 1-ekf-yde-fish oil [Fish Oil] 1,200 (144-216) mg Capsule
1,200 cap PO DAILY
Cabometyx 20 mg Tablet
20 mg PO DAILY
pantoprazole [Protonix] 40 mg tablet,delayed release (DR/EC)
40 mg PO BID Qty: 60 1RF
oxycodone 5 mg Tablet
5 mg PO Q8HPRN PRN (Reason: moderate pain) Qty: 6 0RF
dutasteride [Avodart] 0.5 mg Capsule
0.5 mg PO DAILY
Discontinued
cephalexin 500 mg capsule
500 mg PO QID Qty: 16 0RF
Rx Instructions:
tolerated Ancef well in hospital
Discharge Orders:
Discharge Patient (As Directed); Ordered 08/30/24
Ordered By: Mamadou Murray
Discharge Date and Time
Discharge Date/Time: 08/30/24 13:46
Print Language: [id number]
[2024-08-30 11:00] VITALS: BP 127/95
[2024-08-30] MEDS: FLOMAX 0.8 MG PO (12:34)
== END 2024-08-30 13:46 | disposition home health service (06) | DRG 683 ==
LOC: 4 WEST ACU 05:56
PROVIDERS: Emergency Medicine; ADMITTING PHYSICIAN Hospitalist; ATTENDING PHYSICIAN Family Medicine; EMERGENCY PHYSICIAN Student in an Organized Health Care Education/Training Program; FAMILY PHYSICIAN Family Medicine
DX: N17.9 Acute kidney failure, unspecified (principal); C64.2 Malignant neoplasm of left kidney, except renal pelvis; C78.7 Secondary malignant neoplasm of liver and intrahepatic bile duct; C79.51 Secondary malignant neoplasm of bone; K22.2 Esophageal obstruction; E86.0 Dehydration; S09.90XA Unspecified injury of head, initial encounter; R51.9 Headache, unspecified; E03.9 Hypothyroidism, unspecified; E78.5 Hyperlipidemia, unspecified; E86.1 Hypovolemia; R79.89 Other specified abnormal findings of blood chemistry; N32.0 Bladder-neck obstruction; L89.152 Pressure ulcer of sacral region, stage 2; N18.31 Chronic kidney disease, stage 3a; W05.0XXA Fall from non-moving wheelchair, initial encounter; I12.9 Hypertensive chronic kidney disease with stage 1 through stage 4 chronic kidney disease, or unspecified chronic kidney disease; N40.0 Benign prostatic hyperplasia without lower urinary tract symptoms; G89.29 Other chronic pain; M54.9 Dorsalgia, unspecified; R26.2 Difficulty in walking, not elsewhere classified; F32.A Depression, unspecified; R82.71 Bacteriuria; K40.20 Bilateral inguinal hernia, without obstruction or gangrene, not specified as recurrent; M54.2 Cervicalgia; W01.198A Fall on same level from slipping, tripping and stumbling with subsequent striking against other object, initial encounter; Y93.89 Activity, other specified; Y92.009 Unspecified place in unspecified non-institutional (private) residence as the place of occurrence of the external cause; Z90.5 Acquired absence of kidney; Z92.21 Personal history of antineoplastic chemotherapy; Z79.82 Long term (current) use of aspirin; Z79.890 Hormone replacement therapy; Z87.891 Personal history of nicotine dependence; Z82.5 Family history of asthma and other chronic lower respiratory diseases; Z82.49 Family history of ischemic heart disease and other diseases of the circulatory system; Z88.0 Allergy status to penicillin; Z88.2 Allergy status to sulfonamides
CPT/HCPCS: 70450; 72125; 72146; 76700; 80048; 80053; 81003; 81015; 82550; 84443; 85025; 85027; 87077; 87086; 87186; 96361; 96374; 97162; 97166; 97530; 99285

== ENCOUNTER 2024-09-22 21:29 | Inpatient (IN) | payer OTHER, SELFPAY ==
[2024-09-22 18:37] VITALS: BP 116/83
[2024-09-22 19:08] LABS: % Basophils 0.2 % (0-2); % Eosinophils 3.1 % (0-6); % Immature Granulocytes 0.2 % (0-0.5); % Lymphocytes 31.4 % (20.5-51.1); % Monocytes 9.4 % (1.7-9.3); % Neutrophils 55.7 % (42.2-75.2); Absolute Eosinophils 0.2 10^3/uL (0-0.7); Absolute Lymphocytes 1.5 10^3/uL (1.2-3.4); Absolute Monocytes 0.5 10^3/uL (0.1-0.6); Absolute Neutrophils 2.7 10^3/uL (1.4-6.5); Hematocrit 33.8 % (39.0-52.0); Hemoglobin 11.4 g/dL (13.0-18.0); Mean Corp Hgb Conc. 33.7 g/dL (33.0-37.0); Mean Corpuscular Hgb 31.3 pg (27.0-31.0); Mean Corpuscular Volume 92.9 fL (80.0-94.0); Nucleated Red Blood Cells % 0 % (-); Platelet Count 207 10^3/uL (130-400); Red Blood Cell Count 3.64 10^6/uL (4.70-6.10); Red Cell Dist. Width 15.8 % (11.5-14.5); White Blood Cell Count 4.8 10^3/uL (4.8-10.8)
[2024-09-22 19:36] LABS: ALT (SGPT) 44 U/L (0-50); AST (SGOT) 95 U/L (17-59); Albumin 3.7 g/dl (3.5-5.0); Alkaline Phosphatase 63 U/L (38-126); Blood Urea Nitrogen 37 mg/dl (9-20); Calcium 7.9 mg/dl (8.4-10.2); Carbon Dioxide 22 mmol/L (22-30); Chloride 102 mmol/L (98-107); Glucose 106 mg/dl (70-99); Potassium 4.1 mmol/L (3.5-5.1); Sodium 136 mmol/L (135-145); Total Bilirubin 0.9 mg/dl (0.2-1.3); Total Protein 6.5 g/dl (6.3-8.2); eGFR 13.74
--- NOTE | 2024-09-22 20:48 | ED.GENMED ---
History of Present Illness
General
Chief Complaint: Abnormal Lab Value
Source: patient
Time Seen by Provider: 09/22/24 20:04
History of Present Illness
History of Present Illness:
This 84-year-old male with a known history of metastatic renal cancer who presents due to worsening outpatient labs. Creatinine was bumped. Patient states he gets an infusion every so often but he is not sure what it is. The patient states that
he has been making urine through his catheter that he has because of enlarged prostate. Patient states 'I really do not want dialysis'. Admits that he has had no pain. No vomiting. No numbness or tingling. Otherwise offers no complaints. Had
outpatient labs and was called today to come to the hospital.
Past History
Past History
ED Past Medical History: Other (Kidney cancer status post left nephrectomy, hypertension, hyperlipidemia, BPH)
ED Past Surgical History: Other (Left-sided nephrectomy, inguinal hernia repair, septoplasty)
Social History
Tobacco: Non-smoker
Alcohol: None
Drug: None
Personal:
Living: other
Phy Exam
Physical Exam
Physical Exam:
CONSTITUTIONAL Patient alert and oriented to person, place and time. Well-appearing. Vital signs reviewed.
HEAD atraumatic, normocephalic.
EYES eyelids normal to inspection, Extraocular muscles intact, Conjunctiva normal, Sclera normal.
NECK normal range of motion, Trachea midline, no jugular venous distention.
RESPIRATORY CHEST No respiratory distress noted, Chest expansion equal, Bilateral breath sounds clear.
CARDIOVASCULAR regular rate and rhythm, Heart sounds normal.
ABDOMEN abdomen nontender, Bowel sounds normal. No distention. Coburn catheter noted to be in place with yellow urine in the bag in the catheter tubing
BACK normal inspection, no obvious deformities
UPPER EXTREMITY range of motion normal, Motor strength normal, no cyanosis, no edema.
LOWER EXTREMITY range of motion normal, Motor strength normal, no cyanosis, trace bilateral edema noted
NEURO Speech normal, No focal motor deficits, Cranial Nerves intact to screening exam.
SKIN skin warm, dry, and normal in color.
Course
Orders/Labs/Results
Orders:
Orders
09/22/24 18:57
CMP [Comprehensive Metabolic Panel] Urgent
Complete Blood Count/With Diff Urgent
Magnesium Urgent
Comment: ADD ON
09/22/24 20:18
Add On- LAB Urgent
Tests Added?: Mg
09/22/24 20:19
Urinalysis Reflex To Culture Urgent
Date Specimen was Collected: 09/22/24
Time Specimen was Collected: 20:47
09/22/24 20:32
0.9% Sodium Chloride 500 ml [Nss] 500 ml IV BOLUS
Abnormal Lab Results
09/22/24
18:57
RBC 3.64 L 10^6/uL
(4.70-6.10)
Hgb 11.4 L g/dL
(13.0-18.0)
Hct 33.8 L %
(39.0-52.0)
MCH 31.3 H pg
(27.0-31.0)
RDW 15.8 H %
(11.5-14.5)
Monocytes % 9.4 H %
(1.7-9.3)
BUN 37 H mg/dl
(9-20)
Creatinine 4.1 H* mg/dL
(0.7-1.3)
Glucose 106 H mg/dl
(70-99)
Calcium 7.9 L mg/dl
(8.4-10.2)
AST 95 H U/L
(17-59)
09/22/24 18:57
09/22/24 18:57
Vital Signs
Initial and Last Documented VS:
Initial Vital Signs
Temp Pulse Resp BP Pulse Ox
98.4 F 92 20 116/83 99
09/22/24 18:37 09/22/24 18:37 09/22/24 18:37 09/22/24 18:37 09/22/24 18:37
Last Documented Vital Signs
Temp Pulse Resp BP Pulse Ox
98.4 F 92 20 116/83 99
09/22/24 18:37 09/22/24 18:37 09/22/24 18:37 09/22/24 18:37 09/22/24 18:37
MDM/Problems Addressed
MDM/Problems Addressed:
Acute renal failure, chronic metastatic renal cancer
*Pulse Oximetry
Patient hypoxic: no
*Pile Driving Superintendent Interpretation
Rate: normal
Interpretation: normal
Rhythm: sinus
*Critical Care Note
Total Time (30-74mins, 75-104mins- exclusive of procedures): Not Applicable
Data Reviewed
Review of Other/Old Records Reveals: Labs (Previous labs reviewed, creatinine baseline is 1.7) and Discharge Summary (Discharge summary from August 2024 reviewed revealing previous kidney injury related to dehydration)
Source: patient
Further Testing Considered But Not Given:
Consider CT but making urine. Likely could benefit from repeat ultrasound
Patient Management
Discussion with other providers: Hospitalist
Escalation/DeEscalation of care consider admission/obs:
Making good urine. Does have a solitary kidney with known history of kidney cancer. Gentle IV fluids as this seemed to work last time. Will need renal consultation. Potassium okay. Bicarb okay.
ED Attending Note
-
Portions of this chart may have been created with voice recognition software.� Occasional wrong word or��sound alike� substitutions may have occurred due to the inherent limitations of voice recognition software.
Discharge Plan
Departure
Patient Disposition: Admit
Date of Disposition: 09/22/24
Time of Disposition: 20:51
Admit to: Med/Surg
Presentation/result/management discussed w/ accepting MD/DO: Hospitalist
Discharge Problem:
Acute renal failure
Prescriptions:
No Action
methocarbamol 500 mg Tablet
1,000 mg PO Q6HPRN PRN (Reason: muscle spasms)
acetaminophen 325 mg Tablet
650 mg PO Q6HPRN PRN (Reason: mild pain)
atorvastatin 20 mg Tablet
20 mg PO HS
amlodipine 5 mg Tablet
5 mg PO DAILY
aspirin 81 mg Tablet,Delayed Release (Dr/Ec)
81 mg PO DAILY
levothyroxine 75 mcg Tablet
75 mcg PO DAILY
magnesium hydroxide [Milk of Magnesia] 400 mg/5 mL Suspension
30 ml PO DAILYPRN PRN (Reason: constipation)
ascorbic acid (vitamin C) [Vitamin C] 500 mg Tablet
500 mg PO DAILY
tamsulosin 0.4 mg Capsule
0.8 mg PO NOON
trazodone 100 mg Tablet
100 mg PO HS
bisacodyl 10 mg Suppository
10 mg ND [id number] PRN (Reason: constipation, mom ineffective)
lidocaine 5 % Adhesive Patch,Medicated
1 patch TOPICAL DAILY
Fleet Enema 19-7 gram/118 mL Enema
118 ml ND DAILYPRN PRN (Reason: constipation)
folic acid 1 mg Tablet
1 mg PO DAILY
finasteride 5 mg Tablet
5 mg PO DAILY
fenofibrate nanocrystallized 145 mg Tablet
145 mg PO DAILY
cholecalciferol (vitamin D3) [Vitamin D3] 50 mcg (2,000 unit) Tablet
50 mcg PO DAILY
omega 6-ugo-dkp-fish oil [Fish Oil] 1,200 (144-216) mg Capsule
1,200 cap PO DAILY
Cabometyx 20 mg Tablet
20 mg PO DAILY
pantoprazole [Protonix] 40 mg tablet,delayed release (DR/EC)
40 mg PO BID Qty: 60 1RF
oxycodone 5 mg Tablet
5 mg PO Q8HPRN PRN (Reason: moderate pain) Qty: 6 0RF
dutasteride [Avodart] 0.5 mg Capsule
0.5 mg PO DAILY
Interventions
Interventions:
*General Assessment Last Done: 09/22/24 18:37
Discharge Date and Time
Print Language: HEBREW
[2024-09-22 20:57] LABS: Magnesium 1.4 mg/dl (1.6-2.3)
[2024-09-22 21:12] VITALS: BP 120/80
[2024-09-22] MEDS: NSS 500 IV (21:13)
--- NOTE | 2024-09-22 21:15 | HPS.HSE ---
Family Physician
-
Family Physician:
Chief Complaint
-
MONA
History of Present Illness
84-year-old male past medical history of metastatic renal cancer status post left nephrectomy, BPH with chronic Coburn catheter, hypertension, hyperlipidemia, presenting with worsening creatinine.
Patient receives IV infusions for metastatic renal cancer every 2 weeks. He had routine blood work associated with the transfusion which showed elevated creatinine and he was referred to the emergency room.
He denies any decreased output from his Coburn catheter. His last exchanged 2 and half weeks ago. Denies any problems with the catheter.
He denies any nausea vomiting or diarrhea. He has been eating less recently and not drinking as much fluid. Denies any fever, upper respiratory symptoms.
Denies smoking or alcohol use.
Medical History
Past Medical History
Past Medical History: Reports Other (metastatic renal cancer status post left nephrectomy, BPH with chronic Coburn catheter, hypertension, hyperlipidemia,)
Past Surgical History: Reports None
Social History
Tobacco: Non-smoker
Alcohol: None
Drug: None
Family History
Family History: Not pertinent
Allergies / Home Medications
Allergies reflects when Allergies were last updated in [facility].
Home Medications with original date entered in [facility]
Allergy/Medication List:
Allergies
Allergy/AdvReac Type Severity Reaction Status Date / Time
Penicillins Allergy Unknown Verified 09/22/24 18:37
Sulfa (Sulfonamide Allergy Unknown Verified 09/22/24 18:37
Antibiotics)
Home Medications
acetaminophen 325 mg tablet 650 mg PO Q6HPRN PRN mild pain 05/12/24
amlodipine 5 mg tablet 5 mg PO DAILY Blood Pressure 05/12/24
ascorbic acid (vitamin C) 500 mg tablet (Vitamin C) 500 mg PO DAILY Supplement 05/12/24
aspirin 81 mg tablet,delayed release 81 mg PO DAILY Blood Clot Prevention/Tx 05/12/24
atorvastatin 20 mg tablet 20 mg PO HS High Cholesterol 05/12/24
bisacodyl 10 mg rectal suppository 10 mg SC [id number] PRN constipation, mom ineffective 05/12/24
cabozantinib 20 mg tablet (Cabometyx) 20 mg PO DAILY Cancer 05/12/24
cholecalciferol (vitamin D3) 50 mcg (2,000 unit) tablet (Vitamin D3) 50 mcg PO DAILY Supplement 05/12/24
fenofibrate nanocrystallized 145 mg tablet 145 mg PO DAILY Constipation 05/12/24
finasteride 5 mg tablet 5 mg PO DAILY Urinary Issue 05/12/24
folic acid 1 mg tablet 1 mg PO DAILY Supplement 05/12/24
levothyroxine 75 mcg tablet 75 mcg PO DAILY Thyroid 05/12/24
lidocaine 5 % topical patch 1 patch topical DAILY Pain 05/12/24
magnesium hydroxide 400 mg/5 mL oral suspension (Milk of Magnesia) 30 ml PO DAILYPRN PRN constipation 05/12/24
methocarbamol 500 mg tablet 1,000 mg PO Q6HPRN PRN muscle spasms 05/12/24
omega 9-pyn-wuo-fish oil 1,200 mg (144 mg-216 mg) capsule (Fish Oil) 1,200 cap PO DAILY Supplement/cholesterol 05/12/24
sodium phosphates 19 gram-7 gram/118 mL enema (Fleet Enema) 118 ml SC DAILYPRN PRN constipation 05/12/24
tamsulosin 0.4 mg capsule 0.8 mg PO NOON Urinary Issue 05/12/24
trazodone 100 mg tablet 100 mg PO HS Sleep 05/12/24
oxycodone 5 mg tablet 5 mg PO Q8HPRN PRN moderate pain #6 tabs 05/22/24
pantoprazole 40 mg tablet,delayed release (Protonix) 40 mg PO BID #60 tabs 05/22/24
dutasteride 0.5 mg capsule (Avodart) 0.5 mg PO DAILY Urinary Issue 08/27/24
Review of Systems
-
History Source: Patient
A 12 point ROS was completed and negative except as noted: Yes
Constitutional: Reports No Symptoms
EENT: Reports No Symptoms
Respiratory: Reports No Symptoms
Cardiac: Reports No Symptoms
Abdomen/GI: Reports No Symptoms
: Reports No Symptoms
Musculoskeletal: Reports No Symptoms
Skin: Reports No Symptoms
Neurological: Reports No Symptoms
Endocrine: Reports No Symptoms
Hematologic/Lymphatic: Reports No Symptoms
Psych: Reports No Symptoms
Physical Exam
Vital Signs
Vital Signs
Temp Pulse Resp BP Pulse Ox
97.4 F 84 20 120/80 100
09/22/24 21:12 09/22/24 21:12 09/22/24 18:37 09/22/24 21:12 09/22/24 21:12
Physical Exam
General: Well Developed, Well Nourished and No Apparent Distress
HEENT: NormoCephalic, Moist mucous membranes and Atraumatic
Respiratory: Clear
Cardiac: S1/S2 and Regular Rhythm; No Murmur or Rub
GI: Soft, Non Tender, Non Distended and Normal Bowel Sounds; No Organomegaly
Rectal: Deferred by Provider
Musculoskeletal: No Clubbing, No Cyanosis and No Edema
Skin: No Rash
Neuro: Nonfocal/grossly intact
Laboratory Results
-
09/22/24 18:57
09/22/24 18:57
Laboratory Results
Total Bilirubin 0.9 mg/dl (0.2-1.3) 09/22/24 18:57
AST 95 U/L (17-59) H 09/22/24 18:57
ALT 44 U/L (0-50) 09/22/24 18:57
Alkaline Phosphatase 63 U/L (38-126) 09/22/24 18:57
Data Reviewed
-
Lab Data: Labs Reviewed by me
Old Records: Reviewed
Impression/Plan
-
IMPRESSION:
PLAN:
# Acute kidney injury likely prerenal
# Solitary right kidney
-Creatinine of 4.1 from 1.7 beginning of August, 1 in April
-IV fluids
-Nephrology consulted
Metastatic renal cell cancer status post left nephrectomy
-Known hepatic lesions on prior imaging
-On chemotherapy/immunotherapy
BPH with chronic Coburn catheter
-Continue dutasteride, tamsulosin
Essential hypertension
-Continue amlodipine
Hyperlipidemia
-Continue statin, fenofibrate
Hypothyroidism
-Continue levothyroxine
Stage II sacral pressure injury
Chronic dysphagia
History of GE junction stenosis
-Eats mechanical soft at assisted living supposed to be on pur�ed diet
Full code
DVT prophylaxis�heparin
Pur�ed diet
[2024-09-22 21:21] LABS: Urine Albumin Trace (Neg - Trace); Urine Bilirubin Negative (Negative); Urine Character Clear (Clear); Urine Color Yellow; Urine Glucose Negative (Negative); Urine Ketone Negative (Negative); Urine Leukocyte 2+ (Negative); Urine Nitrite Negative (Negative); Urine Occult Blood 2+ (Negative); Urine Urobilinogen Negative (Neg - 1+); Urine pH 6.5 (5.0-9.0)
--- NOTE | 2024-09-22 21:27 | EDRN ---
Called patient's assisted living and requested his medication list.
[2024-09-22 21:32] LABS: Urine Squamous Cell 0-2 /LPF (Few); Urine White Cell >100 /HPF (0-5)
[2024-09-22 21:33] LABS: Urine Bacteria Moderate (Negative)
[2024-09-22] MEDS: NSS 1000 IV (23:31)
[2024-09-23 06:56] LABS: ALT (SGPT) 35 U/L (0-50); AST (SGOT) 71 U/L (17-59); Albumin 2.8 g/dl (3.5-5.0); Alkaline Phosphatase 51 U/L (38-126); Blood Urea Nitrogen 36 mg/dl (9-20); Calcium 7.3 mg/dl (8.4-10.2); Carbon Dioxide 19 mmol/L (22-30); Chloride 108 mmol/L (98-107); Glucose 96 mg/dl (70-99); Potassium 4.5 mmol/L (3.5-5.1); Sodium 134 mmol/L (135-145); Total Bilirubin 0.9 mg/dl (0.2-1.3); Total Protein 5.3 g/dl (6.3-8.2); eGFR 15.54
[2024-09-23 07:05] LABS: % Basophils 0.5 % (0-2); % Eosinophils 4.3 % (0-6); % Immature Granulocytes 0.2 % (0-0.5); % Lymphocytes 33.7 % (20.5-51.1); % Monocytes 9.4 % (1.7-9.3); % Neutrophils 51.9 % (42.2-75.2); Absolute Eosinophils 0.2 10^3/uL (0-0.7); Absolute Lymphocytes 1.4 10^3/uL (1.2-3.4); Absolute Monocytes 0.4 10^3/uL (0.1-0.6); Absolute Neutrophils 2.2 10^3/uL (1.4-6.5); Hematocrit 27.9 % (39.0-52.0); Hemoglobin 9.5 g/dL (13.0-18.0); Mean Corp Hgb Conc. 34.1 g/dL (33.0-37.0); Mean Corpuscular Hgb 31.3 pg (27.0-31.0); Mean Corpuscular Volume 91.8 fL (80.0-94.0); Mean Platelet Volume 9.9 fL (7.4-10.4); Nucleated Red Blood Cells % 0 % (-); Platelet Count 162 10^3/uL (130-400); Red Blood Cell Count 3.04 10^6/uL (4.70-6.10); Red Cell Dist. Width 15.7 % (11.5-14.5); White Blood Cell Count 4.2 10^3/uL (4.8-10.8)
[2024-09-23] MEDS: HEPARIN 5000 UNITS SC ×2 (07:32→20:53)
[2024-09-23] MEDS: NSS 1000 IV ×2 (07:35→18:19)
[2024-09-23 07:39] VITALS: BP 124/97
--- NOTE | 2024-09-23 12:14 | PHANOTE ---
Addendum entered by Ynes Frey 09/23/24 14:27:
call [facility] and gave them two different fax in the ed to send med list over to.
Original Note:
med rec note- called [facility] to have med list fax over
--- NOTE | 2024-09-23 13:44 | W.PN.HOSP.TC ---
Today's Communication/Plan
-
Renal bladder ultrasound
Follow-up renal function
Continue IVF
Await further nephro input
Ensure added to diet
Assessment / Plan
Assessment / Plan
Acute kidney injury likely prerenal
Solitary right kidney
-Creatinine of 4.1 from 1.7 on Aug
-UA did not show significant proteinuria/hematuria
-Coburn catheter has been placed and draining clear urine
-Renal bladder ultrasound ordered
-Related to chemotherapy? Will discuss with sound mixer Dr. Ro Hunter at [facility]
-Maintain on IV fluid
-Nephrology has been consulted for further help
Esophageal stricture
-Apparently plan to have with dilated on Wednesday with Dr. Mcgowan, notify Dr. Mcgowan who is requested to contact if patient ends up staying till Wednesday
Metastatic renal cell cancer status post left nephrectomy
-Known hepatic lesions on prior imaging
-On chemotherapy/immunotherapy
BPH with chronic Coburn catheter
-Continue dutasteride, tamsulosin
Essential hypertension
-Continue amlodipine
Hyperlipidemia
-Continue statin, fenofibrate
Hypothyroidism
-Continue levothyroxine
Stage II sacral pressure injury
Chronic dysphagia
History of GE junction stenosis
-Eats mechanical soft at assisted living supposed to be on pur�ed diet
Full code
DVT prophylaxis�heparin
Total time spent : 52 mins
Anticipated Discharge: > 48 hours
Subjective/Interval History
-
Date of Service: September 23, 2024
Resting comfortably in bed
Having some difficulty with swallowing and poor appetite
Objective Data
-
Labs:
Laboratory Results
09/23/24
06:20
WBC 4.2 L
Hgb 9.5 L
Hct 27.9 L
Plt Count 162 D
Sodium 134 L
Potassium 4.5
Chloride 108 H
Carbon Dioxide 19 L
BUN 36 H
Creatinine 3.7 H
Glucose 96
Calcium 7.3 L
Total Bilirubin 0.9
AST 71 H
ALT 35
Alkaline Phosphatase 51
Vital Signs:
Vital Signs
Temp Pulse Resp BP Pulse Ox
97.4 F 79 18 124/97 97
09/22/24 21:12 09/23/24 07:39 09/23/24 07:39 09/23/24 07:39 09/23/24 07:39
I&O
09/22/24 09/23/24 09/24/24
06:59 06:59 06:59
Output Total 300 / 300
Balance -300 / -300
Review of Systems
-
Respiratory: Reports No Symptoms
Cardiac: Reports No Symptoms
Abdomen/GI: Reports No Symptoms
Physical Exam
-
General: No Apparent Distress and Comfortable
HEENT: Negative Oxygen
Respiratory: Clear to Auscultation
Cardiac: Regular Rhythm and S1/S2; Negative Murmur or Rub
GI: Soft, Nontender, Nondistended and Normal Bowel Sounds
Genito-urinary: Coburn (Clear urine)
Musculoskeletal: No Edema
Neuro: Awake, Alert, Oriented, No Motor Deficits and Nonfocal/Grossly Intact
Psych: Calm
--- NOTE | 2024-09-23 15:14 | W.CON.NEPH ---
Consultation
-
Date/Time Consultation Requested: 09/23/2024 1 PM
Date/Time Consultation Performed: 09/23/2024 3 PM
Requesting Provider: Dr. Soares
Performing Provider: Dr. Iverson
Reason for Consultation: MONA
Medical History
-
Chief Complaint: MONA
History of Present Illness:
This is an 84-year-old gentleman who has history of renal cell cancer status post left nephrectomy back in 1984 who seems to have had recurrence and then metastatic disease which was diagnosed more recently. He has therefore been on 'infusions'
every other week since December of last year. He does not know the name of this drug. He is followed by oncology out in [facility]. He has a chronic Coburn catheter due to history of retention. He also is hypertension on a monotherapy regimen. He
had recent blood work prior to his infusion which had shown a jump in his creatinine and he was told to come to the emergency room. Here it was noted that his creatinine was 4.1. Baseline is uncertain but appears to be less than 2 and possibly
closer to 1.0. He says that he gets blood work at either [email or web address] or [facility]. He also does not know his baseline creatinine.
He had an admission at the end of last year after falling out of a wheelchair. Initially it was felt that he had a urinary tract infection but this may have simply been chronic colonization. His creatinine was 1.7 at that time. Notably in
April his creatinine was 1.0
Past Medical History
Renal cell cancer, left nephrectomy, recurrent metastatic disease to liver and lung by patient's report
Hypertension
BPH
Chronic Coburn catheter
Hyperlipidemia
GERD
Esophageal stricture status post dilation, Botox
Plan
Patient says that he drinks at most 16 ounces per day. He will increase this in the future
Continue isotonic IV fluids saline
Check fractional excretion of sodium
follow BMP
Maintain chronic Coburn
No urgent needs for dialysis currently
Will need records from his oncologist
Social History
Tobacco: Former Smoker
Alcohol: None
Family History
Family History: Not Pertinent
Allergies / Home Medications
Allergy/AdvReac Type Severity Reaction Status Date / Time
Penicillins Allergy Unknown Verified 09/22/24 18:37
Sulfa (Sulfonamide Allergy Unknown Verified 09/22/24 18:37
Antibiotics)
�Medication �Instructions �Recorded �Confirmed �Type
acetaminophen 325 mg tablet 650 mg PO Q6HPRN PRN mild pain 05/12/24 09/22/24 History
amlodipine 5 mg tablet 5 mg PO DAILY Blood Pressure 05/12/24 09/22/24 History
ascorbic acid (vitamin C) 500 mg 500 mg PO DAILY Supplement 05/12/24 09/22/24 History
tablet (Vitamin C)
aspirin 81 mg tablet,delayed 81 mg PO DAILY Blood Clot 05/12/24 09/22/24 History
release Prevention/Tx
atorvastatin 20 mg tablet 20 mg PO HS High Cholesterol 05/12/24 09/22/24 History
cabozantinib 20 mg tablet 20 mg PO DAILY Cancer 05/12/24 09/22/24 History
(Cabometyx)
cholecalciferol (vitamin D3) 50 50 mcg PO DAILY Supplement 05/12/24 09/22/24 History
mcg (2,000 unit) tablet (Vitamin
D3)
finasteride 5 mg tablet 5 mg PO DAILY Urinary Issue 05/12/24 09/22/24 History
folic acid 1 mg tablet 1 mg PO DAILY Supplement 05/12/24 09/22/24 History
levothyroxine 75 mcg tablet 75 mcg PO DAILY Thyroid 05/12/24 09/22/24 History
magnesium hydroxide 400 mg/5 mL 30 ml PO DAILYPRN PRN constipation 05/12/24 08/27/24 History
oral suspension (Milk of Magnesia)
omega 1-vqv-ghg-fish oil 1,200 mg 1,200 cap PO DAILY 05/12/24 09/22/24 History
(144 mg-216 mg) capsule (Fish Oil) Supplement/cholesterol
tamsulosin 0.4 mg capsule 0.8 mg PO NOON Urinary Issue 05/12/24 09/22/24 History
trazodone 100 mg tablet 100 mg PO HS Sleep 05/12/24 09/22/24 History
dutasteride 0.5 mg capsule 0.5 mg PO DAILY Urinary Issue 08/27/24 08/27/24 History
(Avodart)
pantoprazole 40 mg tablet,delayed 40 mg PO BID GERD 09/23/24 History
release (Protonix)
Review of Systems
-
No chest pain or shortness of breath. No issues with urine output he denies any issues with the Coburn catheter
All other systems: Negative unless noted
Physical Exam
Vital Signs
Vital Signs
Temp Pulse Resp BP Pulse Ox
97.4 F 79 18 124/97 97
09/22/24 21:12 09/23/24 07:39 09/23/24 07:39 09/23/24 07:39 09/23/24 07:39
Lab Results
WBC 4.2 10^3/uL (4.8-10.8) L 09/23/24 06:20
RBC 3.04 10^6/uL (4.70-6.10) L 09/23/24 06:20
Hgb 9.5 g/dL (13.0-18.0) L 09/23/24 06:20
Hct 27.9 % (39.0-52.0) L 09/23/24 06:20
Plt Count 162 10^3/uL (130-400) D 09/23/24 06:20
Sodium 134 mmol/L (135-145) L 09/23/24 06:20
Potassium 4.5 mmol/L (3.5-5.1) 09/23/24 06:20
Chloride 108 mmol/L (98-107) H 09/23/24 06:20
Carbon Dioxide 19 mmol/L (22-30) L 09/23/24 06:20
BUN 36 mg/dl (9-20) H 09/23/24 06:20
Creatinine 3.7 mg/dL (0.7-1.3) H 09/23/24 06:20
eGFR 15.54 09/23/24 06:20
Glucose 96 mg/dl (70-99) 09/23/24 06:20
Calcium 7.3 mg/dl (8.4-10.2) L 09/23/24 06:20
Albumin 2.8 g/dl (3.5-5.0) L 09/23/24 06:20
Laboratory Tests
09/22/24
18:57
Magnesium 1.4 L
Laboratory Tests
08/30/24 09/22/24
04:09 18:57
Creatinine 1.7 H 4.1 H*
Physical Exam
Patient is awake alert oriented and in no distress. Mood and affect were pleasant, insight and judgment were good. Pupils are equal round and reactive to light, extraocular movements are intact, sclera were anicteric. Hearing was normal, ears and
nose are intact. Oropharynx was clear. Neck was supple with trachea midline and no thyromegaly. Heart was regular rate and rhythm without rubs. Lower extremities without edema. Lungs were clear to auscultation bilaterally and with normal
excursion. Abdomen was soft, nontender, with normal active bowel sounds, and no hepatosplenomegaly. Skin was without rash and with normal turgor.
Data Reviewed
-
Ultrasound: Report Reviewed by me (Renal ultrasound 09/23/2024 shows right kidney 13.9 cm, no hydronephrosis)
Medical Tests (Nuc Med, Echo etc): Image Personally Visualized and interpreted (EKG on 09/22/2024 by read shows normal sinus rhythm left axis deviation)
Labs: Labs Reviewed by me
Old Records: Reviewed
Assessment/Plan
-
Assessment
Acute kidney injury
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
Metastatic recurrent renal cell cancer
Esophageal stricture
Hypertension
BPH chronic Coburn
Hyperlipidemia
[2024-09-23 15:35] VITALS: BP 132/76
[2024-09-23 16:10] VITALS: BMI 27.7
--- NOTE | 2024-09-23 16:13 | PTCARENOTE ---
Patient transferred to [facility] from ED holds. Patient is AAOX3, denies pain or discomfort. Patient states he is unable to ambulate, patient was pulled over from stretched to bed.
[2024-09-24 00:13] VITALS: BP 96/50
[2024-09-24] MEDS: DESENEX/MITRAZOL/ZEASORB 1 APPLIC TOPICAL ×3 (00:14→20:35)
[2024-09-24] MEDS: NSS 1000 IV ×2 (05:22→20:34)
[2024-09-24 06:01] LABS: Hematocrit 28.8 % (39.0-52.0); Hemoglobin 9.7 g/dL (13.0-18.0); Mean Corp Hgb Conc. 33.7 g/dL (33.0-37.0); Mean Corpuscular Hgb 31.3 pg (27.0-31.0); Mean Corpuscular Volume 92.9 fL (80.0-94.0); Mean Platelet Volume 10.1 fL (7.4-10.4); Platelet Count 161 10^3/uL (130-400); Red Cell Dist. Width 15.7 % (11.5-14.5); White Blood Cell Count 4.1 10^3/uL (4.8-10.8)
[2024-09-24 06:31] LABS: Blood Urea Nitrogen 33 mg/dl (9-20); Carbon Dioxide 19 mmol/L (22-30); Chloride 109 mmol/L (98-107); Estimated Creatinine Clearance 14 ml/min; Glucose 88 mg/dl (70-99); Potassium 4.4 mmol/L (3.5-5.1); Sodium 137 mmol/L (135-145); eGFR 16.61
[2024-09-24 07:00] VITALS: BP 113/68
[2024-09-24] MEDS: HEPARIN 5000 UNITS SC ×2 (08:48→20:33)
--- NOTE | 2024-09-24 12:17 | PHA.VAN.IN ---
Assessment
- Assessment
Renal Function: Appears elevated from baseline
Renal Function may be Overestimated due to: AGE, RENAL CELL CANCER
Plan
- Plan
Initial / Loading Dose: 2000MG
Maintenance Regimen: PRN BY LEVEL
Monitoring: RANDOM 09/25 IN AM
Pharmacokinetics Vancomycin I
- -
Patient Age: 84
Patient Sex: Male
Vancomycin Day #: 1
Indication: Genito-Urinary Tract
Requesting Provider: DR. WILCOX
Pertinent Antimicrobial Allergies:
PCNS=UNKNOWN
SULFA=UNKNOWN
Height / Weight:
Height 5 ft 5 in
Actual Weight 75.614 kg
IBW in k.5
- Vital Signs / Lab Results
Temp Pulse Resp BP Pulse Ox
97.5 F 71 18 113/68 99
09/24/24 07:00 09/24/24 07:00 09/24/24 07:00 09/24/24 07:00 09/24/24 07:00
Lab Results - Hematology
09/22/24 09/23/24 09/24/24
18:57 06:20 05:37
WBC 4.8 4.2 L 4.1 L
Lab Results - Chemistry
09/22/24 09/23/24 09/24/24
18:57 06:20 05:37
BUN 37 H 36 H 33 H
Creatinine 4.1 H* 3.7 H 3.5 H
Estimated Creat Clear 14
Albumin 3.7 2.8 L
Lab Results - Urine
09/22/24
21:10
Urine Nitrite (Reflex) Negative
Leukocyte Esterase Rfl 2+ A
Urine WBC (Reflex) >100 A
Ur Squamous Epith Cells 0-2
Urine Bacteria (Reflex) Moderate A
Microbiology Results
09/22/24 21:10 Urine Culture - Preliminary
Urine Enterococcus species
[2024-09-24] MEDS: VANCOCIN 540 MG IV (12:27)
[2024-09-24] MEDS: PROSCAR 5 MG PO (12:28)
[2024-09-24] MEDS: FOLVITE 1 MG PO (12:28)
[2024-09-24] MEDS: NORVASC 5 MG PO (12:28)
[2024-09-24] MEDS: VITAMIN D3 (cholecalciferol) 50 MCG PO (12:28)
[2024-09-24] MEDS: SYNTHROID 75 MCG PO (12:28)
[2024-09-24] MEDS: ASPIR LOW (ENTERIC COATED) 81 MG PO (12:28)
[2024-09-24] MEDS: VITAMIN C 500 MG PO (12:28)
--- NOTE | 2024-09-24 12:30 | W.PN.NEPH.PH ---
Today's Communication / Plan
-
follow BMP
Assessment/Plan
-
Assessment
Acute kidney injury
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
Metastatic recurrent renal cell cancer
Esophageal stricture
Hypertension
BPH chronic Coburn
Hyperlipidemia
Plan
Patient says that he drinks at most 16 ounces per day. He will increase this in the future
Continue isotonic IV fluids saline
Check fractional excretion of sodium
follow BMP.
Maintain chronic Coburn
No urgent needs for dialysis currently
Will need records from his oncologist regarding chemo regimen
-
-
Date of Service: September 24, 2024
CC / HPI / ROS
-
Chief Complaint:
MONA
History of Present Illness:
MONA/Cr down to 3.5
acidosis stable 19
BP stable
Coburn in place, nonoliguric
Review of Systems:
no CP/SOB
Labs
-
Labs:
WBC 4.1 10^3/uL (4.8-10.8) L 09/24/24 05:37
RBC 3.10 10^6/uL (4.70-6.10) L 09/24/24 05:37
Hgb 9.7 g/dL (13.0-18.0) L 09/24/24 05:37
Hct 28.8 % (39.0-52.0) L 09/24/24 05:37
Plt Count 161 10^3/uL (130-400) 09/24/24 05:37
Sodium 137 mmol/L (135-145) 09/24/24 05:37
Potassium 4.4 mmol/L (3.5-5.1) 09/24/24 05:37
Chloride 109 mmol/L (98-107) H 09/24/24 05:37
Carbon Dioxide 19 mmol/L (22-30) L 09/24/24 05:37
BUN 33 mg/dl (9-20) H 09/24/24 05:37
Creatinine 3.5 mg/dL (0.7-1.3) H 09/24/24 05:37
eGFR 16.61 09/24/24 05:37
Glucose 88 mg/dl (70-99) 09/24/24 05:37
Calcium 7.0 mg/dl (8.4-10.2) L 09/24/24 05:37
Albumin 2.8 g/dl (3.5-5.0) L 09/23/24 06:20
Physical Exam
-
Vital Signs:
Vital Signs
Temp Pulse Resp BP Pulse Ox
97.5 F 71 18 113/68 99
09/24/24 07:00 09/24/24 07:00 09/24/24 07:00 09/24/24 07:00 09/24/24 07:00
--- NOTE | 2024-09-24 13:24 | W.PN.HOSP.TC ---
Today's Communication/Plan
-
f/u renal function
maintain on IVF
start vancomycin
Assessment / Plan
Assessment / Plan
Acute kidney injury likely prerenal
Solitary right kidney
-Creatinine of 4.1 from 1.7 on Aug
-UA did not show significant proteinuria/hematuria
-Renal bladder ultrasound normal.
-Related to chemotherapy? Will discuss with motors and generators inspector Dr. oR Hunter at [facility]
-Maintain on IV fluid
-Nephrology input noted
Catheter associated urinary tract infection from enterococci
Chronic indwelling Coburn catheter
-UA showing moderate bacteria and significant pyuria
-Urine culture growing enterococci
-Patient allergic to penicillin, starting on vancomycin
Esophageal stricture
-Apparently plan to have with dilated on Wednesday with Dr. Mcgowan, notify Dr. Mcgowan who is requested to contact if patient ends up staying till Wednesday
Metastatic renal cell cancer status post left nephrectomy
-Known hepatic lesions on prior imaging
-On chemotherapy/immunotherapy
BPH with chronic Coburn catheter
-Continue dutasteride, tamsulosin
Essential hypertension
-Continue amlodipine
Hyperlipidemia
-Continue statin, fenofibrate
Hypothyroidism
-Continue levothyroxine
Stage II sacral pressure injury
Chronic dysphagia
History of GE junction stenosis
-Eats mechanical soft at assisted living supposed to be on pur�ed diet
Full code
DVT prophylaxis�heparin
Anticipated Discharge: 24 - 48 hours
Subjective/Interval History
-
Date of Service: September 24, 2024
Denies abdominal pain/nausea/vomiting
afebrile overnight
Objective Data
-
Labs:
Laboratory Results
09/24/24
05:37
WBC 4.1 L
Hgb 9.7 L
Hct 28.8 L
Plt Count 161
Sodium 137
Potassium 4.4
Chloride 109 H
Carbon Dioxide 19 L
BUN 33 H
Creatinine 3.5 H
Glucose 88
Calcium 7.0 L
Vital Signs:
Vital Signs
Temp Pulse Resp BP Pulse Ox
97.5 F 71 18 113/68 99
09/24/24 07:00 09/24/24 07:00 09/24/24 07:00 09/24/24 07:00 09/24/24 07:00
I&O
09/23/24 09/24/24 09/25/24
06:59 06:59 06:59
Intake Total 2640 / 2640
Output Total 300 / 300 775 / 775
Balance -300 / -300 1865 / 1865
Review of Systems
-
Respiratory: Reports No Symptoms
Cardiac: Reports No Symptoms
Abdomen/GI: Reports No Symptoms
Physical Exam
-
General: No Apparent Distress and Comfortable
HEENT: Negative Oxygen
Respiratory: Clear to Auscultation
Cardiac: Regular Rhythm and S1/S2; Negative Murmur or Rub
GI: Soft, Nontender, Nondistended and Normal Bowel Sounds
Genito-urinary: Coburn (Clear urine)
Musculoskeletal: No Edema
Neuro: Awake, Alert, Oriented, No Motor Deficits and Nonfocal/Grossly Intact
Psych: Calm
[2024-09-24 13:47] LABS: Urine Sodium 139 mmol/L (30-90)
[2024-09-24 15:00] VITALS: BP 102/65
--- NOTE | 2024-09-24 15:14 | CM ---
Initial assessment completed with pts son via phone.
Pt is an 84yr old male admitted with MONA.
At baseline, pt lives at [facility].
Per son, pt is mostly w/c bound and self propels himself around his apartment and unit. Pt does use his RW for pivot transfers and short distances. Son also notes he has a power chair in his use as well. Pt has chronic driscoll.
Son notes that they are paying for the highest level of care within the facility. They are aiding with driscoll care, meds, showers, and ADLs.
Son notes that he uses [facility] to assist.
PCP Chivo King
PLAN; Return to [facility] with [facility] Referral
SON REQUESTS FOR CM COMMUNICATION TO GO THROUGH HIM DUE TO SOME ANXIETY AND CONFUSION
[2024-09-24] MEDS: DESYREL 100 MG PO (20:36)
[2024-09-24] MEDS: LIPITOR 20 MG PO (20:36)
[2024-09-24 23:31] VITALS: BP 110/70
[2024-09-25] MEDS: SYNTHROID 75 MCG PO (06:25)
[2024-09-25 07:04] LABS: Hematocrit 27.9 % (39.0-52.0); Hemoglobin 9.8 g/dL (13.0-18.0); Mean Corp Hgb Conc. 35.1 g/dL (33.0-37.0); Mean Corpuscular Hgb 32.2 pg (27.0-31.0); Mean Corpuscular Volume 91.8 fL (80.0-94.0); Mean Platelet Volume 10.6 fL (7.4-10.4); Platelet Count 167 10^3/uL (130-400); Red Blood Cell Count 3.04 10^6/uL (4.70-6.10); Red Cell Dist. Width 15.9 % (11.5-14.5); White Blood Cell Count 3.7 10^3/uL (4.8-10.8)
[2024-09-25 07:28] LABS: Vancomycin Random 16.2 ug/ml
[2024-09-25 07:30] VITALS: BP 108/62
[2024-09-25 07:39] LABS: Blood Urea Nitrogen 31 mg/dl (9-20); Calcium 7.2 mg/dl (8.4-10.2); Carbon Dioxide 21 mmol/L (22-30); Chloride 108 mmol/L (98-107); Estimated Creatinine Clearance 14 ml/min; Glucose 84 mg/dl (70-99); Sodium 137 mmol/L (135-145)
[2024-09-25] MEDS: DESENEX/MITRAZOL/ZEASORB 1 APPLIC TOPICAL ×2 (08:03→21:46)
[2024-09-25] MEDS: ASPIR LOW (ENTERIC COATED) 81 MG PO (08:03)
[2024-09-25] MEDS: PROSCAR 5 MG PO (08:04)
[2024-09-25] MEDS: FOLVITE 1 MG PO (08:04)
[2024-09-25] MEDS: HEPARIN 5000 UNITS SC ×2 (08:04→21:47)
[2024-09-25] MEDS: VITAMIN C 500 MG PO (08:04)
[2024-09-25] MEDS: VITAMIN D3 (cholecalciferol) 50 MCG PO (08:04)
[2024-09-25] MEDS: NORVASC 5 MG PO (08:05)
--- NOTE | 2024-09-25 09:22 | PHA.VAN.FU ---
Vancomycin Assessment / Plan
- Assessment
Renal Function: Stable
In the past 24 hrs, patient has been: Afebrile
- Assessment - Therapeutic Drug Monitoring
Random Level: 16.2 - drawn ~18H after 2g loading dose
- Dosing Plan
Dosing by Level: Re-dose today (Vanc 750mg)
- Monitoring Plan
No level(s) ordered at this time: will re-assess for ordering level tomorrow due to elevated SCR
- Follow Up
Pharmacy will continue to follow.
Vancomycin Follow UP
- -
Patient Age: 84
Patient Sex: Male
Vancomycin Day #: 2
Indication: Genito-Urinary Tract
Requesting Provider: Dr. Escobedo
Pertinent Antimicrobial Allergies:
penicillins - unknown
sulfonamide antibiotics - unknown
Height / Weight:
Height 5 ft 5 in
Actual Weight 75.614 kg
Pertinent Past Medical History: Metastatic RCC s/p L. nephrectomy
- Vital Signs / Lab Results
Temp Pulse Resp BP Pulse Ox
97.5 F 65 18 111/67 100
09/24/24 23:31 09/25/24 08:05 09/24/24 23:31 09/25/24 08:05 09/24/24 23:31
Lab Results - Hematology
09/22/24 09/23/24 09/24/24
18:57 06:20 05:37
WBC 4.8 4.2 L 4.1 L
09/25/24
06:44
WBC 3.7 L
Lab Results - Chemistry
09/22/24 09/23/24 09/24/24
18:57 06:20 05:37
BUN 37 H 36 H 33 H
Creatinine 4.1 H* 3.7 H 3.5 H
Estimated Creat Clear 14
Albumin 3.7 2.8 L
09/25/24
06:45
BUN 31 H
Creatinine 3.4 H
Estimated Creat Clear 14
Albumin
Microbiology Results
09/23/24 10:04 MRSA Screen - Final
Nose No Methicillin Resistant Staphylococcus aureus isolated.
09/22/24 21:10 Urine Culture - Preliminary
Urine Enterococcus species
Therapeutic Drug Monitoring
Random Vancomycin 16.2 ug/ml 09/25/24 06:45
[2024-09-25] MEDS: TYLENOL 650 MG PO (10:23)
[2024-09-25] MEDS: FLOMAX 0.8 MG PO (11:28)
--- NOTE | 2024-09-25 12:04 | W.PN.HOSP.TC ---
Today's Communication/Plan
-
request records-oncology
IVF per nephro
ID input-IV vanc for now
exchange driscoll
Assessment / Plan
Assessment / Plan
Acute kidney injury likely prerenal
Solitary right kidney
-Creatinine of 4.1 from 1.7 on Aug
-UA did not show significant proteinuria/hematuria
-Renal bladder ultrasound normal.
-Related to chemotherapy? idea worker Dr. Ro Hunter at [facility]. Records Requested.
-Creatinine at 3.4.
-IVF per nephro.
-Nephrology input noted
Catheter associated urinary tract infection from enterococci
Chronic indwelling Driscoll catheter
-UA showing moderate bacteria and significant pyuria
-Urine culture growing enterococci
-Patient allergic to penicillin, starting on vancomycin
-Of note, patient with multiple hospitalization for urinary tract infection received IV antibiotics. Of note urine culture with Enterococcus multiple hospitalization. Allergic to penicillin. Patient also with elevated creatinine been receiving
vancomycin. Will exchange Driscoll catheter today. Unclear if true infection versus colonization. Will ask ID for eval.
Esophageal stricture
-Apparently plan to have with dilated on Wednesday with Dr. Mcgowan, notified Dr. Mcgowan.
Metastatic renal cell cancer status post left nephrectomy
-Known hepatic lesions on prior imaging
-On chemotherapy/immunotherapy
BPH with chronic Driscoll catheter
-Continue dutasteride, tamsulosin
Essential hypertension
-Continue amlodipine
Hyperlipidemia
-Continue statin, fenofibrate
Hypothyroidism
-Continue levothyroxine
Stage II sacral pressure injury
Chronic dysphagia
History of GE junction stenosis
-Eats mechanical soft at assisted living supposed to be on pur�ed diet
Full code
DVT prophylaxis�heparin
Anticipated Discharge: > 48 hours
Subjective/Interval History
-
Date of Service: September 25, 2024
states of pain with driscoll exchange
Objective Data
-
Labs:
Laboratory Results
09/25/24 09/25/24
06:44 06:45
WBC 3.7 L
Hgb 9.8 L
Hct 27.9 L
Plt Count 167
Sodium 137
Potassium 4.0
Chloride 108 H
Carbon Dioxide 21 L
BUN 31 H
Creatinine 3.4 H
Glucose 84
Calcium 7.2 L
Vital Signs:
Vital Signs
Temp Pulse Resp BP Pulse Ox
98 F 65 18 111/67 96
09/25/24 07:30 09/25/24 08:05 09/25/24 07:30 09/25/24 08:05 09/25/24 07:30
I&O
09/24/24 09/25/24 09/26/24
06:59 06:59 06:59
Intake Total 2640 / 2640 1020 / 1020
Output Total 775 / 775 1500 / 1500
Balance 1865 / 1865 -480 / -480
Physical Exam
-
General: No Apparent Distress and Comfortable
HEENT: Negative Oxygen
Respiratory: Clear to Auscultation
Cardiac: Regular Rhythm and S1/S2; Negative Murmur or Rub
GI: Soft, Nontender, Nondistended and Normal Bowel Sounds
Genito-urinary: Driscoll (Clear urine)
Musculoskeletal: No Edema
Neuro: Awake, Alert, Oriented, No Motor Deficits and Nonfocal/Grossly Intact
Psych: Calm
Data Reviewed
-
Total Time Spent with Patient (in minutes): 55
[2024-09-25] MEDS: LIDOCAINE URO-JET 2% 1 SYRINGE TOPICAL (12:15)
--- NOTE | 2024-09-25 13:58 | W.PN.NEPH.PH ---
Today's Communication / Plan
-
follow labs, encourage po intake
Assessment/Plan
-
Assessment
Acute kidney injury
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
Metastatic recurrent renal cell cancer
Esophageal stricture
Hypertension
BPH chronic Coburn
Hyperlipidemia
Plan
MONA-cr slow to improve cr 3.4
Patient says that he drinks at most 16 ounces per day. He will increase this in the future
resume IVF, encourage po intake
fractional excretion of sodium not low
follow BMP.
Maintain chronic Coburn, exchanged today
No urgent needs for dialysis currently
Will need records from his oncologist regarding chemo regimen
-
-
Date of Service: September 25, 2024
CC / HPI / ROS
-
Chief Complaint:
MONA
History of Present Illness:
MONA/Cr down to 3.5
acidosis better at 21
BP stable
Coburn in place, nonoliguric
Review of Systems:
no CP/SOB
appetite still poor
Labs
-
Labs:
WBC 3.7 10^3/uL (4.8-10.8) L 09/25/24 06:44
RBC 3.04 10^6/uL (4.70-6.10) L 09/25/24 06:44
Hgb 9.8 g/dL (13.0-18.0) L 09/25/24 06:44
Hct 27.9 % (39.0-52.0) L 09/25/24 06:44
Plt Count 167 10^3/uL (130-400) 09/25/24 06:44
Sodium 137 mmol/L (135-145) 09/25/24 06:45
Potassium 4.0 mmol/L (3.5-5.1) 09/25/24 06:45
Chloride 108 mmol/L (98-107) H 09/25/24 06:45
Carbon Dioxide 21 mmol/L (22-30) L 09/25/24 06:45
BUN 31 mg/dl (9-20) H 09/25/24 06:45
Creatinine 3.4 mg/dL (0.7-1.3) H 09/25/24 06:45
eGFR 17.20 09/25/24 06:45
Glucose 84 mg/dl (70-99) 09/25/24 06:45
Calcium 7.2 mg/dl (8.4-10.2) L 09/25/24 06:45
Albumin 2.8 g/dl (3.5-5.0) L 09/23/24 06:20
Physical Exam
-
Vital Signs:
Vital Signs
Temp Pulse Resp BP Pulse Ox
98 F 65 18 111/67 96
09/25/24 07:30 09/25/24 08:05 09/25/24 07:30 09/25/24 08:05 09/25/24 07:30
Cardiovascular:: Regular rate and rhythm
Respiratory:: Bilateral: CTA
Lung Excursion:: Normal
Abdomen:: Nontender and Soft
Extremity Edema:: None: Bilateral:
Coburn Catheter: Yes
[2024-09-25] MEDS: NSS 1000 IV (14:26)
--- NOTE | 2024-09-25 15:03 | CON.ID ---
Consultation
-
Date/Time Consultation Requested: 09/25/24 12:04
Date/Time Consultation Performed: 09/25/24 15:04
Requesting Provider: Dr Green
Performing Provider: Dr Nava
Reason for Consultation: CAUTI
Chief Complaint / Past History
Chief Complaint
MONA
History of Present Illness
Mr Randle is an 84 year old male with history of metastatic renal cancer status post left nephrectomy, BPH with chronic Driscoll catheter who presented here 09/22 for decreased output from driscoll. Driscoll last exchanged 2 weeks ago. No fevers, chills,
nausea, vomiting or diarrhea. On a weekly RTK inhibitor Cabozantinib. Denies new back or flank pain
Since arrival here has been afebrile, bp stable, wbc initially 4.8 now 3.7, hgb 9.8, plt 167, no L shift, cr baseline 1.7 on arrival 4.1 now 3.4, t bili 0.9, ast 95, alt 44, alk phos 63, ua >100 wbc/hpf, renal US: no dilatation of the right renal
collecting system, prior nephrectomy seen, 09/22 urine culture with e faecalis, also note urine cultures 08/28 and 08/27 with e faecalis; 08/27 also had k pneumoniae. Isoalte resistant to levaquin and tetracycline but sensitive to ampicillin -
patient with unknown allergy to penicillin. Currently on vancomycin.
Past History
Additional Past Medical History:
metastatic renal cancer status post left nephrectomy, BPH with chronic Driscoll catheter, hypertension, hyperlipidemia
Past Surgical History: None
Allergy History:
Penicillins Allergy (Verified 09/22/24 18:37)
Unknown
Sulfa (Sulfonamide Antibiotics) Allergy (Verified 09/22/24 18:37)
Unknown
Medications Reviewed: Yes
Social History
Tobacco: Non-Smoker
Alcohol: None
Drug: None
Family History
Family History: Not Pertinent
Review of Systems
Review of Systems
All systems: All other systems were reviewed and were negative
Vital Signs
Temp Pulse Resp BP Pulse Ox
98 F 65 18 111/67 96
09/25/24 07:30 09/25/24 08:05 09/25/24 07:30 09/25/24 08:05 09/25/24 07:30
Physical Exam
Physical Exam
Constitutional: No Acute Distress
Cardiovascular: Regular Rate and S1/S2; Negative Murmur or Rub
Pulmonary: Clear and Symmetric; Negative Wheezes, Rales or Rhonchi
Gastrointestinal: Soft, Non Tender, Non Distended and Normal Bowel Sounds
Genito-Urinary: Negative Suprapubic Tenderness
Skin: Warm and Dry; Negative Rash or Jaundice
Lab / Diagnostic Study Results
09/25/24 06:44
09/25/24 06:45
Abs Immat Gran (auto) 0.0 10^3/uL (0-0.05) 09/23/24 06:20
Absolute Neuts (auto) 2.2 10^3/uL (1.4-6.5) 09/23/24 06:20
Absolute Lymphs (auto) 1.4 10^3/uL (1.2-3.4) 09/23/24 06:20
Absolute Monos (auto) 0.4 10^3/uL (0.1-0.6) 09/23/24 06:20
Absolute Basos (auto) 0.0 10^3/uL (0-0.2) 09/23/24 06:20
Immature Gran % 0.2 % (0-0.5) 09/23/24 06:20
Neutrophils % 51.9 % (42.2-75.2) 09/23/24 06:20
Lymphocytes % 33.7 % (20.5-51.1) 09/23/24 06:20
Monocytes % 9.4 % (1.7-9.3) H 09/23/24 06:20
Eosinophils % 4.3 % (0-6) 09/23/24 06:20
Basophils % 0.5 % (0-2) 09/23/24 06:20
Ur Squamous Epith Cells 0-2 /LPF (Few) 09/22/24 21:10
Microbiology Results
Micro:
09/22/24 21:10 Urine Culture - Final
Urine Enterococcus faecalis
09/23/24 10:04 MRSA Screen - Final
Nose No Methicillin Resistant Staphylococcus aureus isolated.
Assessment / Plan
Probable Prostatitis due to E faecalis
CAUTI
MONA
Reported allergy with penicillin - unknown
- last two-three sets of culturs with E faecalis - resistant to quinolones and tetracycline, would avoid linezolid given mona and known cancer
- favor two week course of IV vancomycin for ease of dosing 09/24-10/07
- driscoll has been exchanged
- PICC when approaching dc
- would like to see renal function stabilize prior to finalizing dosing
- reviewed with adult carroll Thibodeaux at patient request
[2024-09-25] MEDS: VANCOCIN 150 IV (16:19)
[2024-09-25 16:25] VITALS: BP 125/61
[2024-09-25] MEDS: DESYREL 100 MG PO (21:47)
[2024-09-25] MEDS: LIPITOR 20 MG PO (21:47)
[2024-09-25 23:45] VITALS: BP 102/53
[2024-09-26] MEDS: NSS 1000 IV ×2 (05:37→08:54)
[2024-09-26] MEDS: SYNTHROID 75 MCG PO (05:38)
[2024-09-26] MEDS: TYLENOL 650 MG PO (06:56)
[2024-09-26 07:04] LABS: Hematocrit 29.6 % (39.0-52.0); Mean Corp Hgb Conc. 33.8 g/dL (33.0-37.0); Mean Corpuscular Hgb 31.5 pg (27.0-31.0); Mean Corpuscular Volume 93.4 fL (80.0-94.0); Mean Platelet Volume 9.6 fL (7.4-10.4); Platelet Count 156 10^3/uL (130-400); Red Blood Cell Count 3.17 10^6/uL (4.70-6.10); Red Cell Dist. Width 15.7 % (11.5-14.5); White Blood Cell Count 3.9 10^3/uL (4.8-10.8)
[2024-09-26 07:27] LABS: Blood Urea Nitrogen 30 mg/dl (9-20); Calcium 7.1 mg/dl (8.4-10.2); Carbon Dioxide 19 mmol/L (22-30); Chloride 108 mmol/L (98-107); Estimated Creatinine Clearance 15 ml/min; Glucose 93 mg/dl (70-99); Potassium 4.2 mmol/L (3.5-5.1); Sodium 136 mmol/L (135-145); eGFR 18.49
[2024-09-26 07:33] LABS: Vancomycin Random 18.4 ug/ml
[2024-09-26 08:21] VITALS: BP 98/56
[2024-09-26 08:35] VITALS: BP 98/50
[2024-09-26] MEDS: VITAMIN D3 (cholecalciferol) 50 MCG PO (08:39)
[2024-09-26] MEDS: ASPIR LOW (ENTERIC COATED) 81 MG PO (08:39)
[2024-09-26] MEDS: NORVASC PO (08:41)
[2024-09-26] MEDS: VITAMIN C 500 MG PO (08:42)
[2024-09-26] MEDS: FOLVITE 1 MG PO (08:42)
[2024-09-26] MEDS: PROSCAR 5 MG PO (08:42)
[2024-09-26] MEDS: DESENEX/MITRAZOL/ZEASORB 1 APPLIC TOPICAL ×2 (08:42→20:14)
[2024-09-26] MEDS: HEPARIN 5000 UNITS SC ×2 (08:42→20:15)
--- NOTE | 2024-09-26 09:22 | PHA.VAN.FU ---
Vancomycin Assessment / Plan
- Assessment
Renal Function: SCR Decreasing
WBC's are: Trending Down
In the past 24 hrs, patient has been: Afebrile
- Assessment - Therapeutic Drug Monitoring
Random Level: 18.4
- Dosing Plan
Dosing by Level: Hold off on dosing today
- Monitoring Plan
Random Level: 09/27/24 @0600
- Follow Up
Pharmacy will continue to follow.
Vancomycin Follow UP
- -
Patient Age: 84
Patient Sex: Male
Vancomycin Day #: 3
Indication: Genito-Urinary Tract
Requesting Provider: Dr. Escobedo
Pertinent Antimicrobial Allergies:
penicillins - unknown
sulfonamide antibiotics - unknown
Height / Weight:
Height 5 ft 5 in
Actual Weight 75.614 kg
IBW in k.5
Pertinent Past Medical History: Metastatic RCC s/p L. nephrectomy
- Vital Signs / Lab Results
Temp Pulse Resp BP Pulse Ox
98.3 F 78 18 98/50 97
09/26/24 08:21 09/26/24 08:41 09/26/24 08:21 09/26/24 08:41 09/26/24 08:21
Lab Results - Hematology
09/24/24 09/25/24 09/26/24
05:37 06:44 06:32
WBC 4.1 L 3.7 L 3.9 L
Lab Results - Chemistry
09/24/24 09/25/24 09/26/24
05:37 06:45 06:32
BUN 33 H 31 H 30 H
Creatinine 3.5 H 3.4 H 3.2 H
Estimated Creat Clear 14 14 15
Microbiology Results
09/22/24 21:10 Urine Culture - Final
Urine Enterococcus faecalis
09/23/24 10:04 MRSA Screen - Final
Nose No Methicillin Resistant Staphylococcus aureus isolated.
Therapeutic Drug Monitoring
Random Vancomycin 18.4 ug/ml 09/26/24 06:32
--- NOTE | 2024-09-26 09:59 | W.PN.ID1 ---
Date of Service
Date of Service: September 26, 2024
Today's Communication
- favor two week course of IV vancomycin for ease of dosing 09/24-10/07
- would like to see renal function stabilize prior to finalizing dosing
Assessment / Plan
Probable Prostatitis due to E faecalis
CAUTI
MONA
Reported allergy with penicillin - unknown
- last two-three sets of culturs with E faecalis - resistant to quinolones and tetracycline, would avoid linezolid given mona and known cancer
- favor two week course of IV vancomycin for ease of dosing 09/24-10/07
- driscoll has been exchanged
- PICC when approaching dc
- would like to see renal function stabilize prior to finalizing dosing
- follow clinically
Chief Complaint
-: Other (probable prostatitis)
Subjective / Review of Systems
afebrile
mild hypotension this AM
no events overnight
renal function improving
reviewed plans with patient to his satisfaction
Vital Signs / Physical Exam
Vital Signs
Vital Signs
Temp Pulse Resp BP Pulse Ox
98.3 F 78 18 98/50 97
09/26/24 08:21 09/26/24 08:41 09/26/24 08:21 09/26/24 08:41 09/26/24 08:21
Physical Exam
Constitutional: No Acute Distress and Chronically Ill
Cardiovascular: Regular Rate and S1/S2; Negative Murmur or Rub
Pulmonary: Clear and Symmetric; Negative Wheezes or Rales
Gastrointestinal: Soft, Non Tender, Non Distended and Normal Bowel Sounds
Genito-Urinary: Negative Suprapubic Tenderness
Skin: Warm and Dry; Negative Rash or Jaundice
Objective Data
Lab Data
Lab Results
09/26/24 06:32
09/26/24 06:32
Estimated Creat Clear 15 ml/min 09/26/24 06:32
Total Bilirubin 0.9 mg/dl (0.2-1.3) 09/23/24 06:20
AST 71 U/L (17-59) H 09/23/24 06:20
ALT 35 U/L (0-50) 09/23/24 06:20
Alkaline Phosphatase 51 U/L (38-126) 09/23/24 06:20
Most recent labs reviewed.
Micro Results:
09/22/24 21:10 Urine Culture - Final
Urine Enterococcus faecalis
09/23/24 10:04 MRSA Screen - Final
Nose No Methicillin Resistant Staphylococcus aureus isolated.
--- NOTE | 2024-09-26 10:34 | PTCARENOTE ---
Pt manual BP 98/50 this morning. Held Norvasc per MD order.
[2024-09-26 11:19] VITALS: BP 120/69
[2024-09-26 11:22] VITALS: BP 128/62
--- NOTE | 2024-09-26 11:31 | W.PN.HOSP.TC ---
Today's Communication/Plan
-
trend cr
IVF
IV vancomycin
driscoll exchanged
monitor BP
Assessment / Plan
Assessment / Plan
Acute kidney injury likely prerenal
Solitary right kidney
-Creatinine of 4.1 from 1.7 on Aug
-UA did not show significant proteinuria/hematuria
-Renal bladder ultrasound normal.
-Related to chemotherapy? physical integration practitioner Dr. Ro Hunter at [facility]. Records Requested.
-Creatinine at 3.2
-IVF per nephro.
-Nephrology input noted
Catheter associated urinary tract infection from enterococci
Probable prostatitis
Chronic indwelling Driscoll catheter-driscoll exchanged on 09/25/2024
-UA showing moderate bacteria and significant pyuria
-Urine culture growing enterococci
-Patient allergic to penicillin, starting on vancomycin
-Plan for tentative 2 weeks of IV antibiotics. Plan will be for likely for vancomycin.
Esophageal stricture
-Apparently plan to have with dilated on Wednesday with Dr. Mcgowan, notified Dr. Mcgowan. Plan for tentative EGD later in the week.
Metastatic renal cell cancer status post left nephrectomy
-Known hepatic lesions on prior imaging
-On chemotherapy/immunotherapy
BPH with chronic Driscoll catheter
-Continue dutasteride, tamsulosin
Essential hypertension
-Continue amlodipine with hold parameters. BP soft this am and BP meds held.
Hyperlipidemia
-Continue statin, fenofibrate
Hypothyroidism
-Continue levothyroxine
Stage II sacral pressure injury
Chronic dysphagia
History of GE junction stenosis
-Eats mechanical soft at assisted living supposed to be on pur�ed diet
Full code
DVT prophylaxis�heparin
Anticipated Discharge: > 48 hours
Subjective/Interval History
-
Date of Service: September 26, 2024
remains with poor po intake
encourage to increase orally
afebrile
Objective Data
-
Labs:
Laboratory Results
09/26/24
06:32
WBC 3.9 L
Hgb 10.0 L
Hct 29.6 L
Plt Count 156
Sodium 136
Potassium 4.2
Chloride 108 H
Carbon Dioxide 19 L
BUN 30 H
Creatinine 3.2 H
Glucose 93
Calcium 7.1 L
Vital Signs:
Vital Signs
Temp Pulse Resp BP Pulse Ox
97.9 F 77 18 128/62 93
09/26/24 11:22 09/26/24 11:22 09/26/24 11:22 09/26/24 11:22 09/26/24 11:22
I&O
09/25/24 09/26/24 09/27/24
06:59 06:59 06:59
Intake Total 1020 / 1020 480 / 480
Output Total 1500 / 1500 1300 / 1300
Balance -480 / -480 -820 / -820
Physical Exam
-
General: No Apparent Distress and Comfortable
HEENT: Negative Oxygen
Respiratory: Clear to Auscultation
Cardiac: Regular Rhythm and S1/S2; Negative Murmur or Rub
GI: Soft, Nontender, Nondistended and Normal Bowel Sounds
Genito-urinary: Driscoll (Clear urine)
Musculoskeletal: No Edema
Neuro: Awake, Alert, Oriented, No Motor Deficits and Nonfocal/Grossly Intact
Psych: Calm
Data Reviewed
-
Total Time Spent with Patient (in minutes): 55
--- NOTE | 2024-09-26 12:16 | CM ---
Met with patient at bedside
States he is current with [facility] for driscoll mgmt.
Left message with Carlos the administrative resident at [facility]
Also left message with Cindy Gomez at [facility] - referral added for [facility] in [facility]
Confirmed with Josie grant at [facility] that the patient is current with [facility]
PLAN: [facility], [facility] when medically stable.
[2024-09-26] MEDS: FLOMAX 0.8 MG PO (12:31)
[2024-09-26] MEDS: TUMS CHEWABLE TABLET 200 MG PO (14:55)
[2024-09-26 16:05] VITALS: BP 108/65
--- NOTE | 2024-09-26 16:40 | W.PN.UPDATE ---
Update Note
Progress Note Update
Discussed with primary team and patient this afternoon. Given improvement in renal function, will plan for repeat EGD with dilation and botox injection tomorrow, 09/27/2024. Keep NPO at AL.
--- NOTE | 2024-09-26 17:29 | W.PN.NEPH.PH ---
Today's Communication / Plan
-
cont iVF
Assessment/Plan
-
Assessment
Acute kidney injury
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
Metastatic recurrent renal cell cancer
Esophageal stricture
Hypertension
BPH chronic Coburn
Hyperlipidemia
Plan
MONA-cr slow to improve cr 3.2
Patient says that he drinks at most 16 ounces per day. He will increase this in the future
cont IVF, encourage po intake
fractional excretion of sodium not low
follow BMP.
Maintain chronic Coburn, exchanged 09/25
No urgent needs for dialysis currently
Will need records from his oncologist regarding chemo regimen
for EGD tomorrow
-
-
Date of Service: September 26, 2024
CC / HPI / ROS
-
Chief Complaint:
MONA
History of Present Illness:
MONA/Cr down to 3.2
acidosis stable at 19
BP stable
Coburn in place, nonoliguric
Review of Systems:
no CP/SOB
appetite still poor, c/o burning when took ensure
Labs
-
Labs:
WBC 3.9 10^3/uL (4.8-10.8) L 09/26/24 06:32
RBC 3.17 10^6/uL (4.70-6.10) L 09/26/24 06:32
Hgb 10.0 g/dL (13.0-18.0) L 09/26/24 06:32
Hct 29.6 % (39.0-52.0) L 09/26/24 06:32
Plt Count 156 10^3/uL (130-400) 09/26/24 06:32
Sodium 136 mmol/L (135-145) 09/26/24 06:32
Potassium 4.2 mmol/L (3.5-5.1) 09/26/24 06:32
Chloride 108 mmol/L (98-107) H 09/26/24 06:32
Carbon Dioxide 19 mmol/L (22-30) L 09/26/24 06:32
BUN 30 mg/dl (9-20) H 09/26/24 06:32
Creatinine 3.2 mg/dL (0.7-1.3) H 09/26/24 06:32
eGFR 18.49 09/26/24 06:32
Glucose 93 mg/dl (70-99) 09/26/24 06:32
Calcium 7.1 mg/dl (8.4-10.2) L 09/26/24 06:32
Albumin 2.8 g/dl (3.5-5.0) L 09/23/24 06:20
Physical Exam
-
Vital Signs:
Vital Signs
Temp Pulse Resp BP Pulse Ox
97.9 F 72 20 108/65 97
09/26/24 16:05 09/26/24 16:05 09/26/24 16:05 09/26/24 16:05 09/26/24 16:05
Cardiovascular:: Regular rate and rhythm
Respiratory:: Bilateral: CTA
Lung Excursion:: Normal
Abdomen:: Nontender and Soft
Extremity Edema:: None: Bilateral:
Coburn Catheter: Yes
[2024-09-26] MEDS: SENOKOT-S 1 TABLET PO (20:15)
--- NOTE | 2024-09-26 21:34 | PTCARENOTE ---
Patient is refusing oral care, states 'It was done earlier today. All I want to focus on is having a bowel movement and getting right back in bed for the night.'
[2024-09-26] MEDS: DESYREL 100 MG PO (22:05)
[2024-09-26] MEDS: LIPITOR 20 MG PO (22:05)
[2024-09-26 23:18] VITALS: BP 101/63
[2024-09-27] MEDS: NSS 1000 IV (02:48)
[2024-09-27] MEDS: SYNTHROID 75 MCG PO (05:20)
[2024-09-27] MEDS: PROSCAR 5 MG PO (07:21)
[2024-09-27] MEDS: NORVASC 5 MG PO (07:21)
[2024-09-27] MEDS: FOLVITE 1 MG PO (07:21)
[2024-09-27] MEDS: ASPIR LOW (ENTERIC COATED) 81 MG PO (07:22)
[2024-09-27 07:24] LABS: Vancomycin Random 14.8 ug/ml
[2024-09-27] MEDS: SENOKOT-S PO ×2 (07:26→20:13)
[2024-09-27] MEDS: DESENEX/MITRAZOL/ZEASORB 1 APPLIC TOPICAL ×2 (07:26→20:11)
[2024-09-27] MEDS: VITAMIN D3 (cholecalciferol) PO (07:26)
[2024-09-27] MEDS: HEPARIN SC (07:26)
[2024-09-27] MEDS: VITAMIN C PO (07:26)
[2024-09-27 07:29] VITALS: BP 113/69
[2024-09-27 09:21] LABS: Blood Urea Nitrogen 28 mg/dl (9-20); Calcium 7.4 mg/dl (8.4-10.2); Carbon Dioxide 16 mmol/L (22-30); Chloride 111 mmol/L (98-107); Estimated Creatinine Clearance 16 ml/min; Glucose 95 mg/dl (70-99); Potassium 4.1 mmol/L (3.5-5.1); Sodium 136 mmol/L (135-145); eGFR 19.98
[2024-09-27 10:41] VITALS: BP 84/68; BP_SYST 16
[2024-09-27 11:00] VITALS: BP 105/71; BP_SYST 17
--- NOTE | 2024-09-27 11:00 | PHA.VAN.FU ---
Vancomycin Assessment / Plan
- Assessment
Renal Function: SCR Decreasing
WBC's are: Trending Up
In the past 24 hrs, patient has been: Afebrile
- Assessment - Therapeutic Drug Monitoring
Random Level: 14.8 on 09.27
- Dosing Plan
Dosing by Level: Re-dose today (vancomycin 500 mg x 1)
- Monitoring Plan
Random Level: 1.30 @ 0600
- Follow Up
Pharmacy will continue to follow.
Vancomycin Follow UP
- -
Patient Age: 84
Patient Sex: Male
Vancomycin Day #: 4
Indication: Genito-Urinary Tract
Requesting Provider: Dr. Escobedo
Pertinent Antimicrobial Allergies:
penicillins - unknown
sulfonamide antibiotics - unknown
Height / Weight:
Height 5 ft 5 in
Actual Weight 75.614 kg
IBW in k.5
Pertinent Past Medical History: Metastatic RCC s/p L. nephrectomy
- Vital Signs / Lab Results
Temp Pulse Resp BP Pulse Ox
98.9 F 70 16 84/68 95
09/27/24 10:41 09/27/24 10:41 09/27/24 10:41 09/27/24 10:41 09/27/24 10:41
Lab Results - Hematology
09/25/24 09/26/24
06:44 06:32
WBC 3.7 L 3.9 L
Lab Results - Chemistry
09/25/24 09/26/24 09/27/24
06:45 06:32 06:21
BUN 31 H 30 H 28 H
Creatinine 3.4 H 3.2 H 3.0 H
Estimated Creat Clear 14 15 16
Microbiology Results
09/22/24 21:10 Urine Culture - Final
Urine Enterococcus faecalis
Therapeutic Drug Monitoring
Random Vancomycin 14.8 ug/ml 09/27/24 06:21
[2024-09-27] MEDS: FLOMAX 0.8 MG PO (11:37)
[2024-09-27] MEDS: VANCOCIN HCL 500 MG 100 IV (11:37)
--- NOTE | 2024-09-27 11:48 | W.PN.HOSP.TC ---
Today's Communication/Plan
-
trend cr
IVF
IV vancomycin
will require midline and IV abx set up
Assessment / Plan
Assessment / Plan
Acute kidney injury likely prerenal
Solitary right kidney
-Creatinine of 4.1 from 1.7 on Aug
-UA did not show significant proteinuria/hematuria
-Renal bladder ultrasound normal.
-Related to chemotherapy? senior category manager Dr. Ro Hunter at [facility]. Records Requested.
-Creatinine at 3. slowly improving.
-IVF per nephro.
-Nephrology input noted
Catheter associated urinary tract infection from enterococci
Probable prostatitis
Chronic indwelling Driscoll catheter-driscoll exchanged on 09/25/2024
-UA showing moderate bacteria and significant pyuria
-Urine culture growing enterococci
-Patient allergic to penicillin, starting on vancomycin
-Plan for tentative 2 weeks of IV antibiotics. Plan will be for likely for vancomycin. Random vancomycin level therapeutic. No safe po options available.
Esophageal stricture
Chronic dysphagia
History of GE junction stenosis
-Eats mechanical soft at assisted living supposed to be on pur�ed diet
-s/p EGD with esophageal dilatation on 09/27/24
Metastatic renal cell cancer status post left nephrectomy
-Known hepatic lesions on prior imaging
-On chemotherapy/immunotherapy
BPH with chronic Driscoll catheter
-Continue dutasteride, tamsulosin
Essential hypertension
-Continue amlodipine with hold parameters. BP soft this am and BP meds held.
Hyperlipidemia
-Continue statin, fenofibrate
Hypothyroidism
-Continue levothyroxine
Stage II sacral pressure injury
Full code
DVT prophylaxis�heparin
Anticipated Discharge: > 48 hours
Subjective/Interval History
-
Date of Service: September 27, 2024
watching tv
denies abd pain
in good spirits
Objective Data
-
Labs:
Laboratory Results
09/27/24
06:21
Sodium 136
Potassium 4.1
Chloride 111 H
Carbon Dioxide 16 L
BUN 28 H
Creatinine 3.0 H
Glucose 95
Calcium 7.4 L
Vital Signs:
Vital Signs
Temp Pulse Resp BP Pulse Ox
98.9 F 73 17 105/71 95
09/27/24 10:41 09/27/24 11:00 09/27/24 11:00 09/27/24 11:00 09/27/24 11:00
I&O
09/26/24 09/27/24 09/28/24
06:59 06:59 06:59
Intake Total 480 / 480
Output Total 1300 / 1300 700 / 700
Balance -820 / -820 -700 / -700
Physical Exam
-
General: No Apparent Distress and Comfortable
HEENT: Negative Oxygen
Respiratory: Clear to Auscultation
Cardiac: Regular Rhythm and S1/S2; Negative Murmur or Rub
GI: Soft, Nontender, Nondistended and Normal Bowel Sounds
Genito-urinary: Driscoll (Clear urine)
Musculoskeletal: No Edema
Neuro: Awake, Alert, Oriented, No Motor Deficits and Nonfocal/Grossly Intact
Psych: Calm
Data Reviewed
-
Total Time Spent with Patient (in minutes): 55
--- NOTE | 2024-09-27 12:13 | W.PN.NEPH.PH ---
Today's Communication / Plan
-
IVF
Assessment/Plan
-
Assessment
Acute kidney injury
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
Metastatic recurrent renal cell cancer
Esophageal stricture
Hypertension
BPH chronic Coburn
Hyperlipidemia
Plan
IVF with bicarb
follow BMP.
Maintain chronic Coburn, exchanged 09/25
Will need records from his oncologist regarding chemo regimen
-
-
Date of Service: September 27, 2024
CC / HPI / ROS
-
Chief Complaint:
MONA
History of Present Illness:
MONA/Cr down to 3.
acidosis worse at 16
BP stable
Coburn in place, nonoliguric
Review of Systems:
no CP/SOB
s/p esphogeal dilatation
Labs
-
Labs:
WBC 3.9 10^3/uL (4.8-10.8) L 09/26/24 06:32
RBC 3.17 10^6/uL (4.70-6.10) L 09/26/24 06:32
Hgb 10.0 g/dL (13.0-18.0) L 09/26/24 06:32
Hct 29.6 % (39.0-52.0) L 09/26/24 06:32
Plt Count 156 10^3/uL (130-400) 09/26/24 06:32
Sodium 136 mmol/L (135-145) 09/27/24 06:21
Potassium 4.1 mmol/L (3.5-5.1) 09/27/24 06:21
Chloride 111 mmol/L (98-107) H 09/27/24 06:21
Carbon Dioxide 16 mmol/L (22-30) L 09/27/24 06:21
BUN 28 mg/dl (9-20) H 09/27/24 06:21
Creatinine 3.0 mg/dL (0.7-1.3) H 09/27/24 06:21
eGFR 19.98 09/27/24 06:21
Glucose 95 mg/dl (70-99) 09/27/24 06:21
Calcium 7.4 mg/dl (8.4-10.2) L 09/27/24 06:21
Albumin 2.8 g/dl (3.5-5.0) L 09/23/24 06:20
Physical Exam
-
Vital Signs:
Vital Signs
Temp Pulse Resp BP Pulse Ox
98.9 F 73 17 105/71 95
09/27/24 10:41 09/27/24 11:00 09/27/24 11:00 09/27/24 11:00 09/27/24 11:00
Cardiovascular:: Regular rate and rhythm
Respiratory:: Bilateral: Coarse
Lung Excursion:: Normal
Abdomen:: Nontender and Soft
Bowel Sounds:: Normal
Extremity Edema:: None: Bilateral:
--- NOTE | 2024-09-27 12:52 | W.PN.ID1 ---
Date of Service
Date of Service: September 27, 2024
Today's Communication
- PICC placement (midlines generally not accepted for vancomycin)
- tentatively for vancomycin 500 mg IV q 48 hours; follow up AM level tomorrow
- patient understands that with fluctuating renal function will require more frequent lab draws outpatient
- tentative script given to pillowcase folder - will notify their service when plan is finalized
- follow clinically
Assessment / Plan
Probable Prostatitis due to E faecalis
CAUTI
MONA - slowly resolving
Reported allergy with penicillin - unknown
- last two-three sets of culturs with E faecalis - resistant to quinolones and tetracycline, would avoid linezolid given mona and known cancer
- favor two week course of IV vancomycin 09/24-10/07
- driscoll has been exchanged
- PICC placement (midlines generally not accepted for vancomycin)
- tentatively for vancomycin 500 mg IV q 48 hours; follow up AM level tomorrow
- patient understands that with fluctuating renal function will require more frequent lab draws outpatient
- tentative script given to pillowcase folder - will notify their service when plan is finalized
- follow clinically
Chief Complaint
-: Other (probable prostatitis)
Subjective / Review of Systems
afebrile
bp stable
no events overnight
Vital Signs / Physical Exam
Vital Signs
Vital Signs
Temp Pulse Resp BP Pulse Ox
98.9 F 73 17 105/71 95
09/27/24 10:41 09/27/24 11:00 09/27/24 11:00 09/27/24 11:00 09/27/24 11:00
Physical Exam
Constitutional: No Acute Distress
Cardiovascular: Regular Rate and S1/S2; Negative Murmur or Rub
Pulmonary: Clear and Symmetric; Negative Wheezes or Rales
Gastrointestinal: Soft, Non Tender, Non Distended and Normal Bowel Sounds
Genito-Urinary: Negative Suprapubic Tenderness
Skin: Warm and Dry; Negative Rash or Jaundice
Objective Data
Lab Data
Lab Results
09/26/24 06:32
09/27/24 06:21
Estimated Creat Clear 16 ml/min 09/27/24 06:21
Total Bilirubin 0.9 mg/dl (0.2-1.3) 09/23/24 06:20
AST 71 U/L (17-59) H 09/23/24 06:20
ALT 35 U/L (0-50) 09/23/24 06:20
Alkaline Phosphatase 51 U/L (38-126) 09/23/24 06:20
Most recent labs reviewed.
Micro Results:
09/22/24 21:10 Urine Culture - Final
Urine Enterococcus faecalis
09/23/24 10:04 MRSA Screen - Final
Nose No Methicillin Resistant Staphylococcus aureus isolated.
--- NOTE | 2024-09-27 12:54 | CM ---
Received call from Citlaly at [facility] who stated that their agency does not contract with [facility] any longer. Therefore they will be unable to resume care. Will determine which agencies have a contract with [facility] and discuss with patient.
Will call Emelia.
Plan: Case management will continue to follow and assist with discharge planning. Back to Assisted Living at [facility], will need to find a home health care agency.
[2024-09-27] MEDS: SODIUM BICARBONATE 1150 MEQ IV (12:57)
[2024-09-27 15:15] VITALS: BP 120/70
[2024-09-27] MEDS: HEPARIN 5000 UNITS SC (20:12)
[2024-09-27] MEDS: DESYREL 100 MG PO (21:41)
[2024-09-27] MEDS: LIPITOR 20 MG PO (21:41)
[2024-09-27 23:00] VITALS: BP 113/68
[2024-09-28] MEDS: SYNTHROID 75 MCG PO (05:05)
[2024-09-28 05:26] LABS: Blood Urea Nitrogen 28 mg/dl (9-20); Carbon Dioxide 22 mmol/L (22-30); Chloride 107 mmol/L (98-107); Estimated Creatinine Clearance 17 ml/min; Glucose 87 mg/dl (70-99); Sodium 136 mmol/L (135-145); eGFR 20.81
[2024-09-28 05:31] LABS: Vancomycin Random 15.6 ug/ml
[2024-09-28 07:18] VITALS: BP 106/69
[2024-09-28] MEDS: SODIUM BICARBONATE 1150 MEQ IV (07:48)
[2024-09-28] MEDS: PROSCAR 5 MG PO (07:51)
[2024-09-28] MEDS: VITAMIN D3 (cholecalciferol) 50 MCG PO (07:52)
[2024-09-28] MEDS: NORVASC 5 MG PO (07:52)
[2024-09-28] MEDS: ASPIR LOW (ENTERIC COATED) 81 MG PO (07:52)
[2024-09-28] MEDS: VITAMIN C 500 MG PO (07:52)
[2024-09-28] MEDS: FOLVITE 1 MG PO (07:52)
[2024-09-28] MEDS: HEPARIN 5000 UNITS SC ×2 (07:52→20:12)
[2024-09-28] MEDS: SENOKOT-S 1 TABLET PO (07:52)
[2024-09-28] MEDS: DESENEX/MITRAZOL/ZEASORB 1 APPLIC TOPICAL ×2 (07:56→20:12)
--- NOTE | 2024-09-28 09:31 | W.PN.NEPH.PH ---
Today's Communication / Plan
-
cap IV fluids
Assessment/Plan
-
Assessment
Acute kidney injury
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
Metastatic recurrent renal cell cancer
Esophageal stricture
Hypertension
BPH chronic Coburn
Hyperlipidemia
Plan
IV fluids
follow BMP.
Maintain chronic Coburn, exchanged 09/25
Will need records from his oncologist regarding chemo regimen
-
-
Date of Service: September 28, 2024
CC / HPI / ROS
-
Chief Complaint:
MONA
History of Present Illness:
MONA/Cr down to 2.9
acidosis resolved
BP stable
Coburn in place, nonoliguric
Review of Systems:
no CP/SOB
s/p esophageal dilatation
Labs
-
Labs:
WBC 3.9 10^3/uL (4.8-10.8) L 09/26/24 06:32
RBC 3.17 10^6/uL (4.70-6.10) L 09/26/24 06:32
Hgb 10.0 g/dL (13.0-18.0) L 09/26/24 06:32
Hct 29.6 % (39.0-52.0) L 09/26/24 06:32
Plt Count 156 10^3/uL (130-400) 09/26/24 06:32
Sodium 136 mmol/L (135-145) 09/28/24 04:24
Potassium 4.0 mmol/L (3.5-5.1) 09/28/24 04:24
Chloride 107 mmol/L (98-107) 09/28/24 04:24
Carbon Dioxide 22 mmol/L (22-30) 09/28/24 04:24
BUN 28 mg/dl (9-20) H 09/28/24 04:24
Creatinine 2.9 mg/dL (0.7-1.3) H 09/28/24 04:24
eGFR 20.81 09/28/24 04:24
Glucose 87 mg/dl (70-99) 09/28/24 04:24
Calcium 7.0 mg/dl (8.4-10.2) L 09/28/24 04:24
Albumin 2.8 g/dl (3.5-5.0) L 09/23/24 06:20
Physical Exam
-
Vital Signs:
Vital Signs
Temp Pulse Resp BP Pulse Ox
98.2 F 78 16 106/69 98
09/28/24 07:18 09/28/24 07:18 09/28/24 07:18 09/28/24 07:18 09/28/24 07:18
Cardiovascular:: Regular rate and rhythm
Respiratory:: Bilateral: CTA
Lung Excursion:: Normal
Abdomen:: Nontender and Soft
Bowel Sounds:: Normal
Extremity Edema:: None: Bilateral:
--- NOTE | 2024-09-28 10:47 | PHA.VAN.FU ---
Vancomycin Assessment / Plan
- Assessment
Renal Function: SCR Decreasing
WBC's are: Trending Down (3.9)
In the past 24 hrs, patient has been: Afebrile
- Dosing Plan
Dosing by Level: Hold off on dosing today (random vancomycin level=15.6 on 09.28)
- Monitoring Plan
Random Level: 1.31 @ 0600
- Follow Up
Pharmacy will continue to follow.
Vancomycin Follow UP
- -
Patient Age: 84
Patient Sex: Male
Vancomycin Day #: 5
Indication: Genito-Urinary Tract
Requesting Provider: Dr. Escobedo
Pertinent Antimicrobial Allergies:
penicillins - unknown
sulfonamide antibiotics - unknown
Height / Weight:
Height 5 ft 5 in
Actual Weight 75.614 kg
IBW in k.5
Pertinent Past Medical History: Metastatic RCC s/p L. nephrectomy
- Vital Signs / Lab Results
Temp Pulse Resp BP Pulse Ox
98.2 F 78 16 106/69 98
09/28/24 07:18 09/28/24 07:18 09/28/24 07:18 09/28/24 07:18 09/28/24 07:18
Lab Results - Hematology
09/26/24
06:32
WBC 3.9 L
Lab Results - Chemistry
09/26/24 09/27/24 09/28/24
06:32 06:21 04:24
BUN 30 H 28 H 28 H
Creatinine 3.2 H 3.0 H 2.9 H
Estimated Creat Clear 15 16 17
Therapeutic Drug Monitoring
Random Vancomycin 15.6 ug/ml 09/28/24 04:24
--- NOTE | 2024-09-28 11:22 | W.PN.HOSP.TC ---
Today's Communication/Plan
-
IVF per nephro
trend bmp
cont driscoll
monitor po intake
cm for iv abx
ID RECS
Assessment / Plan
Assessment / Plan
Acute kidney injury likely prerenal
Solitary right kidney
-Creatinine of 4.1 from 1.7 on Aug
-UA did not show significant proteinuria/hematuria
-Renal bladder ultrasound normal.
-Related to chemotherapy? small animal veterinarian Dr. Ro Hunter at [facility]. Records Requested.
-Creatinine at 2.9 slowly improving.
-s/p bicarb gtt. IVF per nephro.
-Nephrology input noted
Catheter associated urinary tract infection from enterococci
Probable prostatitis
Chronic indwelling Driscoll catheter-driscoll exchanged on 09/25/2024
-UA showing moderate bacteria and significant pyuria
-Urine culture growing enterococci
-Patient allergic to penicillin, starting on vancomycin. s/p PICC line. Random vancomycin level wnl at 15.6.
-Plan for tentative 2 weeks of IV antibiotics. Plan will be for likely for vancomycin. Random vancomycin level therapeutic. No safe po options available.
Esophageal stricture
Chronic dysphagia
History of GE junction stenosis
-Eats mechanical soft at assisted living supposed to be on pur�ed diet
-s/p EGD with esophageal dilatation on 09/27/24
Metastatic renal cell cancer status post left nephrectomy
-Known hepatic lesions on prior imaging
-On chemotherapy/immunotherapy
BPH with chronic Driscoll catheter
-Continue dutasteride, tamsulosin
Essential hypertension
-Continue amlodipine with hold parameters. BP soft this am and BP meds held.
Hyperlipidemia
-Continue statin, fenofibrate
Hypothyroidism
-Continue levothyroxine
Stage II sacral pressure injury
Full code
DVT prophylaxis�heparin
Anticipated Discharge: > 48 hours
Subjective/Interval History
-
Date of Service: September 28, 2024
feeling better
tolerating diet
Objective Data
-
Labs:
Laboratory Results
09/28/24
04:24
Sodium 136
Potassium 4.0
Chloride 107
Carbon Dioxide 22
BUN 28 H
Creatinine 2.9 H
Glucose 87
Calcium 7.0 L
Vital Signs:
Vital Signs
Temp Pulse Resp BP Pulse Ox
98.2 F 78 16 106/69 98
09/28/24 07:18 09/28/24 07:18 09/28/24 07:18 09/28/24 07:18 09/28/24 07:18
I&O
09/27/24 09/28/24 09/29/24
06:59 06:59 06:59
Intake Total 1080 / 1080
Output Total 700 / 700 1974
Balance -700 / -700 -895 / -895
Physical Exam
-
General: No Apparent Distress and Comfortable
HEENT: Negative Oxygen
Respiratory: Clear to Auscultation
Cardiac: Regular Rhythm and S1/S2; Negative Murmur or Rub
GI: Soft, Nontender, Nondistended and Normal Bowel Sounds
Genito-urinary: Driscoll (Clear urine)
Musculoskeletal: No Edema
Neuro: Awake, Alert, Oriented, No Motor Deficits and Nonfocal/Grossly Intact
Psych: Calm
Data Reviewed
-
Total Time Spent with Patient (in minutes): 55
[2024-09-28] MEDS: FLOMAX 0.8 MG PO (11:40)
--- NOTE | 2024-09-28 14:20 | CM ---
Addendum entered by ELIDA Munoz 09/28/24 16:19:
Spoke with SYDNEY TORRES who stated that script may change and patient should be here through the w/e. Will fax updated script to [facility] as soon as it is ready.
Original Note:
Placed a call to Diya Sue at [facility] who stated [facility] does contract with [facility] and they can accept patient. Ref[facility] through [facility] Diya was made aware that patient will be going back on IV ABX. She stated that they can accommodate. Diya
relayed that Sydnie from [facility], is out this week and Maury is covering, .
Placed a call to Maury at [facility], who stated that he will email the form that he needs detailing the information necessary for them to start processing.
Will fax over all clinical requested in form this afternoon to [phone]
Phone Number, [facility], .
Plan: Case management will continue to follow and assist with discharge planning. Back to Assisted Living at [facility] with IV ABX.
[2024-09-28 15:11] VITALS: BP 122/72
--- NOTE | 2024-09-28 15:41 | W.PN.ID1 ---
Date of Service
Date of Service: September 28, 2024
Today's Communication
- tentatively for vancomycin 500 mg IV q 72 hours; follow up AM level tomorrow; note that levels will continue to fluctuate as renal function improves
- patient understands that with fluctuating renal function will require more frequent lab draws outpatient
- tentative script given to case management social worker - will notify their service when plan is finalized - not yet
Assessment / Plan
Probable Prostatitis due to E faecalis
CAUTI
MONA - slowly resolving
Reported allergy with penicillin - unknown
- last two-three sets of culturs with E faecalis - resistant to quinolones and tetracycline, would avoid linezolid given mona and known cancer
- favor two week course of IV vancomycin 09/24-10/07
- driscoll has been exchanged
- PICC placement (midlines generally not accepted for vancomycin)
- tentatively for vancomycin 500 mg IV q 72 hours; follow up AM level tomorrow; note that levels will continue to fluctuate as renal function improves
- patient understands that with fluctuating renal function will require more frequent lab draws outpatient
- tentative script given to case management social worker - will notify their service when plan is finalized - not yet
- follow clinically
Chief Complaint
-: Other (probable prostatitis)
Subjective / Review of Systems
afebrile
BP stable
renal function further improving
Vital Signs / Physical Exam
Vital Signs
Vital Signs
Temp Pulse Resp BP Pulse Ox
98 F 75 16 122/72 99
09/28/24 15:11 09/28/24 15:11 09/28/24 15:11 09/28/24 15:11 09/28/24 15:11
Physical Exam
Constitutional: No Acute Distress
Cardiovascular: Regular Rate and S1/S2; Negative Murmur or Rub
Pulmonary: Clear and Symmetric; Negative Wheezes or Rales
Gastrointestinal: Soft, Non Tender, Non Distended and Normal Bowel Sounds
Skin: Warm and Dry; Negative Rash or Jaundice
Lines: PICC
Objective Data
Lab Data
Lab Results
09/26/24 06:32
09/28/24 04:24
Estimated Creat Clear 17 ml/min 09/28/24 04:24
Total Bilirubin 0.9 mg/dl (0.2-1.3) 09/23/24 06:20
AST 71 U/L (17-59) H 09/23/24 06:20
ALT 35 U/L (0-50) 09/23/24 06:20
Alkaline Phosphatase 51 U/L (38-126) 09/23/24 06:20
Most recent labs reviewed.
Micro Results:
09/22/24 21:10 Urine Culture - Final
Urine Enterococcus faecalis
09/23/24 10:04 MRSA Screen - Final
Nose No Methicillin Resistant Staphylococcus aureus isolated.
Care Review
Plan reviewed with: Physician (Dr Green - vancomycin dosing )
[2024-09-28] MEDS: SENOKOT-S PO (20:13)
[2024-09-28] MEDS: LIPITOR 20 MG PO (21:35)
[2024-09-28] MEDS: DESYREL 100 MG PO (21:35)
[2024-09-28 23:30] VITALS: BP 97/60
[2024-09-29] MEDS: SYNTHROID 75 MCG PO (05:24)
[2024-09-29 06:39] LABS: Vancomycin Random 13.5 ug/ml
[2024-09-29 06:45] LABS: Blood Urea Nitrogen 33 mg/dl (9-20); Calcium 7.3 mg/dl (8.4-10.2); Carbon Dioxide 23 mmol/L (22-30); Chloride 106 mmol/L (98-107); Estimated Creatinine Clearance 16 ml/min; Glucose 90 mg/dl (70-99); Potassium 4.1 mmol/L (3.5-5.1); Sodium 134 mmol/L (135-145); eGFR 19.21
[2024-09-29 07:33] VITALS: BP 107/64
[2024-09-29] MEDS: SENOKOT-S 1 TABLET PO (09:02)
[2024-09-29] MEDS: HEPARIN 5000 UNITS SC ×2 (09:02→21:07)
[2024-09-29] MEDS: VITAMIN C 500 MG PO (09:02)
[2024-09-29] MEDS: PROSCAR 5 MG PO (09:02)
[2024-09-29] MEDS: VITAMIN D3 (cholecalciferol) 50 MCG PO (09:03)
[2024-09-29] MEDS: NORVASC 5 MG PO (09:03)
[2024-09-29] MEDS: ASPIR LOW (ENTERIC COATED) 81 MG PO (09:03)
[2024-09-29] MEDS: FOLVITE 1 MG PO (09:03)
[2024-09-29] MEDS: DESENEX/MITRAZOL/ZEASORB 1 APPLIC TOPICAL ×2 (09:07→21:10)
--- NOTE | 2024-09-29 09:26 | PHA.VAN.FU ---
Vancomycin Assessment / Plan
- Assessment
Renal Function: SCR Increasing (3.0-> 2.9-> 3.1)
WBC's are: Trending Down (4.2-> 4.1-> 3.7-> 3.9)
In the past 24 hrs, patient has been: Afebrile
- Assessment - Therapeutic Drug Monitoring
Random Level: 13.5
- Dosing Plan
Dosing by Level: Re-dose today (vancomycin 500 mg x 1)
- Monitoring Plan
Random Level: 2.1 @0600
- Follow Up
Pharmacy will continue to follow.
Vancomycin Follow UP
- -
Patient Age: 84
Patient Sex: Male
Vancomycin Day #: 6
Indication: Genito-Urinary Tract
Requesting Provider: Dr. Escobedo
Pertinent Antimicrobial Allergies:
penicillins - unknown
sulfonamide antibiotics - unknown
Height / Weight:
Height 5 ft 5 in
Actual Weight 75.614 kg
IBW in k.5
Pertinent Past Medical History: Metastatic RCC s/p L. nephrectomy
- Vital Signs / Lab Results
Temp Pulse Resp BP Pulse Ox
97.3 F 76 17 107/64 97
09/29/24 07:33 09/29/24 07:33 09/29/24 07:33 09/29/24 07:33 09/29/24 07:33
Lab Results - Chemistry
09/27/24 09/28/24 09/29/24
06:21 04:24 05:06
BUN 28 H 28 H 33 H
Creatinine 3.0 H 2.9 H 3.1 H
Estimated Creat Clear 16 17 16
Therapeutic Drug Monitoring
Random Vancomycin 13.5 ug/ml 09/29/24 05:06
--- NOTE | 2024-09-29 12:10 | W.PN.HOSP.TC ---
Today's Communication/Plan
-
Will need to monitor creatinine closely he is also on IV vancomycin
Levels being dosed by pharmacy
Discussed with ID
Maintain Driscoll
Assessment / Plan
Assessment / Plan
Acute kidney injury
Solitary right kidney
-Creatinine of 4.1 on admission. Per [facility] records baseline Cr of 1.8
-UA did not show significant proteinuria/hematuria
-Renal bladder ultrasound normal.
-Related to chemotherapy? 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 Ro Hunter at [facility]. Records Requested.
-Creatinine at 3.1. Per the records, Cr did go as high as 2.37.
-s/p bicarb gtt. IVF per nephro.
-nivolumab has A/E related to MONA, AIN. Seems to have plateaued around 3.
-Nephrology input noted
Catheter associated urinary tract infection from enterococci
Probable prostatitis
Chronic indwelling Driscoll catheter-driscoll exchanged on 09/25/2024
-UA showing moderate bacteria and significant pyuria
-Urine culture growing enterococci
-Patient allergic to penicillin, starting on vancomycin. s/p PICC line. Random vancomycin level wnl at 15.6.
-Plan for tentative 2 weeks of IV antibiotics. Plan will be for likely for vancomycin. Random vancomycin level therapeutic. No safe po options available.
Esophageal stricture
Chronic dysphagia
History of GE junction stenosis
-Eats mechanical soft at assisted living supposed to be on pur�ed diet
-s/p EGD with esophageal dilatation on 09/27/24
Metastatic renal cell cancer status post left nephrectomy
-Known hepatic lesions on prior imaging
-On chemotherapy/immunotherapy-records in chart.
- received cabozantinib, nivolumab, xgeva,
BPH with chronic Driscoll catheter
-Continue dutasteride, tamsulosin
Essential hypertension
-Continue amlodipine with hold parameters.
Hyperlipidemia
-Continue statin, fenofibrate
Hypothyroidism
-Continue levothyroxine
Stage II sacral pressure injury
Full code
DVT prophylaxis�heparin
Anticipated Discharge: > 48 hours
Subjective/Interval History
-
Date of Service: September 29, 2024
Tolerating diet
Increasing amount of urinary output
Objective Data
-
Labs:
Laboratory Results
09/29/24
05:06
Sodium 134 L
Potassium 4.1
Chloride 106
Carbon Dioxide 23
BUN 33 H
Creatinine 3.1 H
Glucose 90
Calcium 7.3 L
Vital Signs:
Vital Signs
Temp Pulse Resp BP Pulse Ox
97.3 F 76 17 107/64 97
09/29/24 07:33 09/29/24 07:33 09/29/24 07:33 09/29/24 07:33 09/29/24 07:33
I&O
09/28/24 09/29/24 09/30/24
06:59 06:59 06:59
Intake Total 1080 / 1080 720 / 720
Output Total 1974 1700 / 1700
Balance -895 / -895 -980 / -980
Physical Exam
-
General: No Apparent Distress and Comfortable
HEENT: Negative Oxygen
Respiratory: Clear to Auscultation
Cardiac: Regular Rhythm and S1/S2; Negative Murmur or Rub
GI: Soft, Nontender, Nondistended and Normal Bowel Sounds
Genito-urinary: Driscoll (Clear urine)
Musculoskeletal: No Edema
Neuro: Awake, Alert, Oriented, No Motor Deficits and Nonfocal/Grossly Intact
Psych: Calm
Data Reviewed
-
Total Time Spent with Patient (in minutes): 55
[2024-09-29] MEDS: FLOMAX 0.8 MG PO (12:16)
[2024-09-29] MEDS: VANCOCIN HCL 500 MG 100 IV (12:16)
--- NOTE | 2024-09-29 14:33 | W.PN.NEPH.PH ---
Today's Communication / Plan
-
follow labs
hold CCB
Assessment/Plan
-
Assessment
Acute kidney injury
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
Metastatic recurrent renal cell cancer
Esophageal stricture
Hypertension
BPH chronic Driscoll
Hyperlipidemia
Plan
cr is up at 3.1
enocurag epo intake, if cr still high tomorrow-resume IVF
non oliguric with driscoll
follow BMP.
Maintain chronic Driscoll, exchanged 09/25
BP soft, Amlodipine hold
Will need records from his oncologist regarding chemo regimen
-
-
Date of Service: September 29, 2024
CC / HPI / ROS
-
Chief Complaint:
MONA
History of Present Illness:
MONA/Cr up at 3.1
acidosis resolved
BP stable
Driscoll in place, nonoliguric
Review of Systems:
no CP/SOB
s/p esophageal dilatation, tolerating diet
Labs
-
Labs:
WBC 3.9 10^3/uL (4.8-10.8) L 09/26/24 06:32
RBC 3.17 10^6/uL (4.70-6.10) L 09/26/24 06:32
Hgb 10.0 g/dL (13.0-18.0) L 09/26/24 06:32
Hct 29.6 % (39.0-52.0) L 09/26/24 06:32
Plt Count 156 10^3/uL (130-400) 09/26/24 06:32
Sodium 134 mmol/L (135-145) L 09/29/24 05:06
Potassium 4.1 mmol/L (3.5-5.1) 09/29/24 05:06
Chloride 106 mmol/L (98-107) 09/29/24 05:06
Carbon Dioxide 23 mmol/L (22-30) 09/29/24 05:06
BUN 33 mg/dl (9-20) H 09/29/24 05:06
Creatinine 3.1 mg/dL (0.7-1.3) H 09/29/24 05:06
eGFR 19.21 09/29/24 05:06
Glucose 90 mg/dl (70-99) 09/29/24 05:06
Calcium 7.3 mg/dl (8.4-10.2) L 09/29/24 05:06
Albumin 2.8 g/dl (3.5-5.0) L 09/23/24 06:20
Physical Exam
-
Vital Signs:
Vital Signs
Temp Pulse Resp BP Pulse Ox
97.3 F 76 17 107/64 97
09/29/24 07:33 09/29/24 07:33 09/29/24 07:33 09/29/24 07:33 09/29/24 07:33
Cardiovascular:: Regular rate and rhythm
Respiratory:: Bilateral: CTA
Lung Excursion:: Normal
Abdomen:: Nontender and Soft
Extremity Edema:: None: Bilateral:
Driscoll Catheter: Yes
[2024-09-29 15:08] VITALS: BP 105/62
--- NOTE | 2024-09-29 15:40 | CM ---
Patient stated that his son, Carlos Eduardo had a couple of questions. Placed a call to patient's son who expressed that he would like to be kept in the loop, when he speaks with hospital staff regarding any information. Advised son that staff will be
advised.
Asked patient who his current MD is. He stated Dr. Diya Bernal.
Plan: Case management will continue to follow and assist with discharge planning. Back to [facility] with VN and IV ABX.
[2024-09-29] MEDS: DESYREL 100 MG PO (21:07)
[2024-09-29] MEDS: SENOKOT-S PO (21:07)
[2024-09-29] MEDS: LIPITOR 20 MG PO (21:07)
[2024-09-29 22:40] VITALS: BP 117/70
[2024-09-30 05:34] LABS: Blood Urea Nitrogen 34 mg/dl (9-20); Calcium 7.6 mg/dl (8.4-10.2); Carbon Dioxide 20 mmol/L (22-30); Chloride 106 mmol/L (98-107); Estimated Creatinine Clearance 16 ml/min; Glucose 94 mg/dl (70-99); Potassium 3.9 mmol/L (3.5-5.1); Sodium 133 mmol/L (135-145); Vancomycin Random 14.2 ug/ml; eGFR 19.21
[2024-09-30] MEDS: SYNTHROID 75 MCG PO (05:43)
--- NOTE | 2024-09-30 07:48 | PHA.VAN.FU ---
Vancomycin Assessment / Plan
- Assessment
Renal Function: Stable
In the past 24 hrs, patient has been: Afebrile
- Assessment - Therapeutic Drug Monitoring
Random Level: R = 14.2 ~ 17hrs post Vanc 500mg
- Dosing Plan
Continue: Dose by level
Dosing by Level: Re-dose today (Vanc 500mg)
- Monitoring Plan
Random Level: 2/2 with AM labs
- Follow Up
Pharmacy will continue to follow.
Vancomycin Follow UP
- -
Patient Age: 84
Patient Sex: Male
Vancomycin Day #: 7
Indication: Genito-Urinary Tract
Requesting Provider: Dr. Escobedo
Pertinent Antimicrobial Allergies:
penicillins - unknown
sulfonamide antibiotics - unknown
Height / Weight:
Height 5 ft 5 in
Actual Weight 75.614 kg
IBW in k.5
Pertinent Past Medical History: Metastatic RCC s/p L. nephrectomy
- Vital Signs / Lab Results
Temp Pulse Resp BP Pulse Ox
97.6 F 84 16 117/70 97
09/29/24 22:40 09/29/24 22:40 09/29/24 22:40 09/29/24 22:40 09/29/24 22:40
Lab Results - Chemistry
09/27/24 09/28/24 09/29/24
06:21 04:24 05:06
BUN 28 H 28 H 33 H
Creatinine 3.0 H 2.9 H 3.1 H
Estimated Creat Clear 16 17 16
09/30/24
04:49
BUN 34 H
Creatinine 3.1 H
Estimated Creat Clear 16
Therapeutic Drug Monitoring
Random Vancomycin 14.2 ug/ml 09/30/24 04:49
[2024-09-30 08:11] VITALS: BP 92/59
[2024-09-30] MEDS: HEPARIN 5000 UNITS SC ×2 (10:07→20:48)
[2024-09-30] MEDS: SENOKOT-S 1 TABLET PO (10:08)
[2024-09-30] MEDS: ASPIR LOW (ENTERIC COATED) 81 MG PO (10:08)
[2024-09-30] MEDS: PROSCAR 5 MG PO (10:08)
[2024-09-30] MEDS: VITAMIN C 500 MG PO (10:08)
[2024-09-30] MEDS: FOLVITE 1 MG PO (10:08)
[2024-09-30] MEDS: DESENEX/MITRAZOL/ZEASORB 1 APPLIC TOPICAL ×2 (10:08→20:48)
[2024-09-30] MEDS: VANCOCIN HCL 500 MG 100 IV (10:09)
[2024-09-30] MEDS: VITAMIN D3 (cholecalciferol) 50 MCG PO (10:09)
[2024-09-30 12:02] VITALS: BP 87/58
--- NOTE | 2024-09-30 12:45 | W.PN.HOSP.TC ---
Today's Communication/Plan
-
IV abx through weekend
trend cr
encourage po intake
start midodrine
Assessment / Plan
Assessment / Plan
Acute kidney injury
Solitary right kidney
-Creatinine of 4.1 on admission. Per [facility] records baseline Cr of 1.8
-UA did not show significant proteinuria/hematuria
-Renal bladder ultrasound normal.
-Related to chemotherapy? 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 Ro Hunter at [facility]. Records Requested.
-Creatinine at 3.1. Per the records, Cr did go as high as 2.37.
-s/p bicarb gtt. IVF per nephro.
-nivolumab has A/E related to MONA, AIN. Seems to have plateaued around 3.
-Nephrology input noted
Diarrhea could be antibiotics associated
-probiotics for now
-if repeat persistent episodes then check cdiff. low likelihood.
Catheter associated urinary tract infection from enterococci
Probable prostatitis
Chronic indwelling Driscoll catheter-driscoll exchanged on 09/25/2024
-UA showing moderate bacteria and significant pyuria
-Urine culture growing enterococci
-Patient allergic to penicillin, starting on vancomycin. s/p PICC line. Random vancomycin level wnl at 14.2
-Plan for tentative 2 weeks of IV antibiotics. Plan will be for likely for vancomycin. Random vancomycin level therapeutic. No safe po options available.
Esophageal stricture
Chronic dysphagia
History of GE junction stenosis
-Eats mechanical soft at assisted living supposed to be on pur�ed diet
-s/p EGD with esophageal dilatation on 09/27/24
Metastatic renal cell cancer status post left nephrectomy
-Known hepatic lesions on prior imaging
-On chemotherapy/immunotherapy-records in chart.
- received cabozantinib, nivolumab, xgeva,
BPH with chronic Driscoll catheter
-Continue dutasteride, tamsulosin
Essential hypertension
-Now with soft BP. Norvasc held. midorine started. may require IVF-defer to nephro.
Hyperlipidemia
-Continue statin, fenofibrate
Hypothyroidism
-Continue levothyroxine
Stage II sacral pressure injury
Full code
DVT prophylaxis�heparin
Anticipated Discharge: > 48 hours
Subjective/Interval History
-
Date of Service: September 30, 2024
states had 4 loose bm overnight which has stopped now
no abd pain or nausea or vomiting
Objective Data
-
Labs:
Laboratory Results
09/30/24
04:49
Sodium 133 L
Potassium 3.9
Chloride 106
Carbon Dioxide 20 L
BUN 34 H
Creatinine 3.1 H
Glucose 94
Calcium 7.6 L
Vital Signs:
Vital Signs
Temp Pulse Resp BP Pulse Ox
98.5 F 80 20 87/58 100
09/30/24 12:02 09/30/24 12:02 09/30/24 12:02 09/30/24 12:02 09/30/24 12:02
I&O
09/29/24 09/30/24 10/01/24
06:59 06:59 06:59
Intake Total 720 / 720 240 / 240
Output Total 1700 / 1700 300 / 300 550 / 550
Balance -980 / -980 -60 / -60 -550 / -550
Data Reviewed
-
Total Time Spent with Patient (in minutes): 55
[2024-09-30] MEDS: FLOMAX 0.8 MG PO (13:10)
[2024-09-30] MEDS: VISBIOME 2 CAP PO (13:10)
[2024-09-30] MEDS: ProAmatine 5 MG PO (13:13)
[2024-09-30 13:19] VITALS: BP 118/74
[2024-09-30 15:17] VITALS: BP 127/74
--- NOTE | 2024-09-30 17:16 | W.PN.NEPH.PH ---
Today's Communication / Plan
-
gentle iVF today
Assessment/Plan
-
Assessment
Acute kidney injury
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
Metastatic recurrent renal cell cancer
Esophageal stricture
Hypertension
BPH chronic Driscoll
Hyperlipidemia
Plan
cr no change at 3.1
encourage po intake, gentle IVF
non oliguric with driscoll
follow BMP.
Maintain chronic Driscoll, exchanged 09/25
BP soft, Amlodipine hold, midodrine started per primary
-
-
Date of Service: September 30, 2024
CC / HPI / ROS
-
Chief Complaint:
MONA
History of Present Illness:
MONA/Cr no change 3.1
acidosis bicarb at 20
BP stable
Driscoll in place, nonoliguric
poor po intake
Review of Systems:
no CP/SOB
s/p esophageal dilatation, tolerating diet
diarrhea
Labs
-
Labs:
WBC 3.9 10^3/uL (4.8-10.8) L 09/26/24 06:32
RBC 3.17 10^6/uL (4.70-6.10) L 09/26/24 06:32
Hgb 10.0 g/dL (13.0-18.0) L 09/26/24 06:32
Hct 29.6 % (39.0-52.0) L 09/26/24 06:32
Plt Count 156 10^3/uL (130-400) 09/26/24 06:32
Sodium 133 mmol/L (135-145) L 09/30/24 04:49
Potassium 3.9 mmol/L (3.5-5.1) 09/30/24 04:49
Chloride 106 mmol/L (98-107) 09/30/24 04:49
Carbon Dioxide 20 mmol/L (22-30) L 09/30/24 04:49
BUN 34 mg/dl (9-20) H 09/30/24 04:49
Creatinine 3.1 mg/dL (0.7-1.3) H 09/30/24 04:49
eGFR 19.21 09/30/24 04:49
Glucose 94 mg/dl (70-99) 09/30/24 04:49
Calcium 7.6 mg/dl (8.4-10.2) L 09/30/24 04:49
Albumin 2.8 g/dl (3.5-5.0) L 09/23/24 06:20
Physical Exam
-
Vital Signs:
Vital Signs
Temp Pulse Resp BP Pulse Ox
98.5 F 80 20 118/74 100
09/30/24 12:02 09/30/24 12:02 09/30/24 12:02 09/30/24 13:19 09/30/24 12:02
Cardiovascular:: Regular rate and rhythm
Respiratory:: Bilateral: CTA
Lung Excursion:: Normal
Abdomen:: Nontender and Soft
Extremity Edema:: None: Bilateral:
Driscoll Catheter: Yes
[2024-09-30] MEDS: ProAmatine PO (17:19)
[2024-09-30 17:20] VITALS: BP 142/78
[2024-09-30] MEDS: NSS 1000 IV (18:34)
[2024-09-30] MEDS: LIPITOR 20 MG PO (20:47)
[2024-09-30] MEDS: DESYREL 100 MG PO (20:48)
[2024-09-30] MEDS: SENOKOT-S PO (20:53)
[2024-09-30 23:40] VITALS: BP 114/66
[2024-10-01] MEDS: SYNTHROID 75 MCG PO (05:33)
[2024-10-01 06:01] LABS: Blood Urea Nitrogen 33 mg/dl (9-20); Calcium 7.6 mg/dl (8.4-10.2); Carbon Dioxide 20 mmol/L (22-30); Chloride 107 mmol/L (98-107); Estimated Creatinine Clearance 16 ml/min; Glucose 101 mg/dl (70-99); Potassium 3.9 mmol/L (3.5-5.1); Sodium 135 mmol/L (135-145); eGFR 19.98
[2024-10-01 08:05] VITALS: BP 119/76
--- NOTE | 2024-10-01 09:16 | PHA.VAN.FU ---
Vancomycin Assessment / Plan
- Assessment
Renal Function: Stable
In the past 24 hrs, patient has been: Afebrile
- Assessment - Therapeutic Drug Monitoring
Random Level: R = 16 ~19hrs post Vanc 500mg
- Dosing Plan
Continue: Dose by level
Dosing by Level: Hold off on dosing today
- Monitoring Plan
Random Level: 2/3 with AM labs.
- Follow Up
Pharmacy will continue to follow.
Vancomycin Follow UP
- -
Patient Age: 84
Patient Sex: Male
Vancomycin Day #: 8
Indication: Genito-Urinary Tract
Requesting Provider: Dr. Escobedo
Pertinent Antimicrobial Allergies:
penicillins - unknown
sulfonamide antibiotics - unknown
Height / Weight:
Height 5 ft 5 in
Actual Weight 75.614 kg
IBW in k.5
Pertinent Past Medical History: Metastatic RCC s/p L. nephrectomy
- Vital Signs / Lab Results
Temp Pulse Resp BP Pulse Ox
97.3 F 73 21 119/76 96
10/01/24 08:05 10/01/24 08:05 10/01/24 08:05 10/01/24 08:05 10/01/24 08:05
Lab Results - Chemistry
09/29/24 09/30/24 10/01/24
05:06 04:49 05:22
BUN 33 H 34 H 33 H
Creatinine 3.1 H 3.1 H 3.0 H
Estimated Creat Clear 16 16 16
Therapeutic Drug Monitoring
Random Vancomycin 16.0 ug/ml 10/01/24 05:22
[2024-10-01] MEDS: VISBIOME 2 CAP PO (09:37)
[2024-10-01] MEDS: VITAMIN D3 (cholecalciferol) 50 MCG PO (09:37)
[2024-10-01] MEDS: SENOKOT-S 1 TABLET PO ×2 (09:37→20:51)
[2024-10-01] MEDS: ASPIR LOW (ENTERIC COATED) 81 MG PO (09:37)
[2024-10-01] MEDS: FOLVITE 1 MG PO (09:37)
[2024-10-01] MEDS: HEPARIN 5000 UNITS SC ×2 (09:37→20:50)
[2024-10-01] MEDS: VITAMIN C 500 MG PO (09:37)
[2024-10-01] MEDS: PROSCAR 5 MG PO (09:38)
[2024-10-01] MEDS: ProAmatine PO ×3 (09:40→17:06)
[2024-10-01] MEDS: DESENEX/MITRAZOL/ZEASORB 1 APPLIC TOPICAL ×2 (09:40→20:49)
--- NOTE | 2024-10-01 12:27 | W.PN.HOSP.TC ---
Today's Communication/Plan
-
encourage po intake
Cr seems to have plateau
IV vancomycin
Assessment / Plan
Assessment / Plan
Acute kidney injury
Solitary right kidney
-Creatinine of 4.1 on admission. Per [facility] records baseline Cr of 1.8
-UA did not show significant proteinuria/hematuria
-Renal bladder ultrasound normal.
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 Records Requested.
-Creatinine at 3.1. Per the records, Cr did go as high as 2.37.
-s/p bicarb gtt. IVF per nephro.
-nivolumab has A/E related to MONA, AIN. Seems to have plateaued around 3.
-Nephrology input noted
Diarrhea could be antibiotics associated
-probiotics for now
-if repeat persistent episodes then check cdiff. low likelihood.
Catheter associated urinary tract infection from enterococci
Probable prostatitis
Chronic indwelling Driscoll catheter-driscoll exchanged on 09/25/2024
-UA showing moderate bacteria and significant pyuria
-Urine culture growing enterococci
-Patient allergic to penicillin, starting on vancomycin. s/p PICC line. Random vancomycin level wnl at 16
-Plan for tentative 2 weeks of IV antibiotics. Plan will be for likely for vancomycin. Random vancomycin level therapeutic. No safe po options available.
-Await ID further recs for home antibiotics dose/duration tomm.
Esophageal stricture
Chronic dysphagia
History of GE junction stenosis
-Eats mechanical soft at assisted living supposed to be on pur�ed diet
-s/p EGD with esophageal dilatation on 09/27/24
Metastatic renal cell cancer status post left nephrectomy
-Known hepatic lesions on prior imaging
-On chemotherapy/immunotherapy-records in chart.
- received cabozantinib, nivolumab, xgeva,
BPH with chronic Driscoll catheter
-Continue dutasteride, tamsulosin
Essential hypertension
-Now with soft BP. Norvasc held. midorine started. may require IVF-defer to nephro.
Hyperlipidemia
-Continue statin, fenofibrate
Hypothyroidism
-Continue levothyroxine
Stage II sacral pressure injury
Full code
DVT prophylaxis�heparin
Anticipated Discharge: 24 - 48 hours
Subjective/Interval History
-
Date of Service: October 01, 2024
watching tv
started on IVF per nephro
Objective Data
-
Labs:
Laboratory Results
10/01/24
05:22
Sodium 135
Potassium 3.9
Chloride 107
Carbon Dioxide 20 L
BUN 33 H
Creatinine 3.0 H
Glucose 101 H
Calcium 7.6 L
Vital Signs:
Vital Signs
Temp Pulse Resp BP Pulse Ox
97.3 F 73 21 119/76 96
10/01/24 08:05 10/01/24 08:05 10/01/24 08:05 10/01/24 08:05 10/01/24 08:05
I&O
09/30/24 10/01/24 10/02/24
06:59 06:59 06:59
Intake Total 240 / 240 1620 / 1620
Output Total 300 / 300 1250 / 1250
Balance -60 / -60 370 / 370
Physical Exam
-
General: No Apparent Distress and Comfortable
HEENT: Negative Oxygen
Respiratory: Clear to Auscultation
Cardiac: Regular Rhythm and S1/S2; Negative Murmur or Rub
GI: Soft, Nontender, Nondistended and Normal Bowel Sounds
Genito-urinary: Driscoll (Clear urine)
Musculoskeletal: No Edema
Neuro: Awake, Alert, Oriented, No Motor Deficits and Nonfocal/Grossly Intact
Psych: Calm
[2024-10-01] MEDS: FLOMAX 0.8 MG PO (13:36)
[2024-10-01] MEDS: ProAmatine 5 MG PO (13:40)
[2024-10-01 13:41] VITALS: BP 122/60
[2024-10-01 15:04] VITALS: BP 110/70
[2024-10-01 16:04] VITALS: BP 110/70
--- NOTE | 2024-10-01 16:50 | W.PN.NEPH.PH ---
Today's Communication / Plan
-
observe off IVF
Assessment/Plan
-
Assessment
Acute kidney injury
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
Metastatic recurrent renal cell cancer
Esophageal stricture
Hypertension
BPH chronic Driscoll
Hyperlipidemia
Plan
cr no change at 3.1
encourage po intake, chronically poor fluid intake
non oliguric with driscoll
follow BMP.
Maintain chronic Driscoll, exchanged 09/25
BP soft, Amlodipine held, cont midodrine
Spoke with the son on the phone in detail that possible chronic prerenal state and recent chemotherapy with ?nivolumab could have adversely affected his kidney function. Overall creatinine is stable now. Will need a follow-up with nephrology
moving forward-son will make a decision if want to see at [facility] or locally. At discharge he will need BMP within a week
-
-
Date of Service: October 01, 2024
CC / HPI / ROS
-
Chief Complaint:
MONA
History of Present Illness:
MONA/Cr no change 3.
acidosis bicarb at 20
BP stable
Driscoll in place, nonoliguric
poor po intake
Review of Systems:
no CP/SOB
s/p esophageal dilatation, tolerating diet
no diarrhea
Labs
-
Labs:
WBC 3.9 10^3/uL (4.8-10.8) L 09/26/24 06:32
RBC 3.17 10^6/uL (4.70-6.10) L 09/26/24 06:32
Hgb 10.0 g/dL (13.0-18.0) L 09/26/24 06:32
Hct 29.6 % (39.0-52.0) L 09/26/24 06:32
Plt Count 156 10^3/uL (130-400) 09/26/24 06:32
Sodium 135 mmol/L (135-145) 10/01/24 05:22
Potassium 3.9 mmol/L (3.5-5.1) 10/01/24 05:22
Chloride 107 mmol/L (98-107) 10/01/24 05:22
Carbon Dioxide 20 mmol/L (22-30) L 10/01/24 05:22
BUN 33 mg/dl (9-20) H 10/01/24 05:22
Creatinine 3.0 mg/dL (0.7-1.3) H 10/01/24 05:22
eGFR 19.98 10/01/24 05:22
Glucose 101 mg/dl (70-99) H 10/01/24 05:22
Calcium 7.6 mg/dl (8.4-10.2) L 10/01/24 05:22
Albumin 2.8 g/dl (3.5-5.0) L 09/23/24 06:20
Physical Exam
-
Vital Signs:
Vital Signs
Temp Pulse Resp BP Pulse Ox
99 F 78 19 110/70 99
10/01/24 15:04 10/01/24 15:04 10/01/24 15:04 10/01/24 15:04 10/01/24 15:04
Cardiovascular:: Regular rate and rhythm
Respiratory:: Bilateral: CTA
Lung Excursion:: Normal
Abdomen:: Nontender and Soft
Extremity Edema:: None: Bilateral:
Driscoll Catheter: Yes
[2024-10-01] MEDS: DESYREL 100 MG PO (20:51)
[2024-10-01] MEDS: LIPITOR 20 MG PO (20:51)
[2024-10-01 23:30] VITALS: BP 95/61
[2024-10-02] MEDS: SYNTHROID 75 MCG PO (05:58)
[2024-10-02 06:00] LABS: Blood Urea Nitrogen 32 mg/dl (9-20); Calcium 7.5 mg/dl (8.4-10.2); Carbon Dioxide 20 mmol/L (22-30); Chloride 105 mmol/L (98-107); Estimated Creatinine Clearance 16 ml/min; Glucose 95 mg/dl (70-99); Sodium 134 mmol/L (135-145); eGFR 19.21
[2024-10-02 07:05] VITALS: BP 108/64
[2024-10-02] MEDS: ASPIR LOW (ENTERIC COATED) 81 MG PO (07:59)
[2024-10-02] MEDS: VITAMIN D3 (cholecalciferol) 50 MCG PO (07:59)
[2024-10-02] MEDS: FOLVITE 1 MG PO (07:59)
[2024-10-02] MEDS: ProAmatine PO ×3 (07:59→17:29)
[2024-10-02] MEDS: PROSCAR 5 MG PO (07:59)
[2024-10-02] MEDS: SENOKOT-S PO ×3 (07:59→20:11)
[2024-10-02] MEDS: HEPARIN 5000 UNITS SC ×2 (08:00→21:23)
[2024-10-02] MEDS: DESENEX/MITRAZOL/ZEASORB 1 APPLIC TOPICAL ×2 (08:00→21:23)
[2024-10-02] MEDS: VITAMIN C 500 MG PO (08:00)
[2024-10-02] MEDS: VISBIOME 2 CAP PO (08:00)
--- NOTE | 2024-10-02 08:40 | PHA.VAN.FU ---
Addendum entered and electronically signed by Jeimy Gunn [facility] 10/02/24 11:10:
Based on patient discharge today, will give dose of 500 mg x 1 today. He will receive 500 mg q48h through 10/07/24.
Original Note:
Vancomycin Assessment / Plan
- Assessment
Renal Function: Stable (3.0-3.1)
WBC's are: WNL
In the past 24 hrs, patient has been: Afebrile
- Assessment - Therapeutic Drug Monitoring
Random Level: 14.0 - Last vanc dose was 500 mg on 09/30/24 10:09
Calculated half life (H): calculated T1/2 between last 2 levels ~ 121 h
- Monitoring Plan
Random Level: repeat random level AM 10/03/24
- Follow Up
Pharmacy will continue to follow.
Vancomycin Follow UP
- -
Patient Age: 84
Patient Sex: Male
Vancomycin Day #: 9
Indication: Genito-Urinary Tract
Requesting Provider: Dr. Escobedo
Pertinent Antimicrobial Allergies:
penicillins - unknown
sulfonamide antibiotics - unknown
Height / Weight:
Height 5 ft 5 in
Actual Weight 75.614 kg
IBW in k.5
Pertinent Past Medical History: Metastatic RCC s/p L. nephrectomy
- Vital Signs / Lab Results
Temp Pulse Resp BP Pulse Ox
97.4 F 81 18 108/64 98
10/02/24 07:05 10/02/24 07:59 10/02/24 07:05 10/02/24 07:59 10/02/24 07:05
Lab Results - Chemistry
09/30/24 10/01/24 10/02/24
04:49 05:22 04:49
BUN 34 H 33 H 32 H
Creatinine 3.1 H 3.0 H 3.1 H
Estimated Creat Clear 16 16 16
Therapeutic Drug Monitoring
Random Vancomycin 14.0 ug/ml 10/02/24 04:49
[2024-10-02] MEDS: FLOMAX 0.8 MG PO (11:42)
[2024-10-02] MEDS: VANCOCIN HCL 500 MG 100 IV (11:43)
--- NOTE | 2024-10-02 12:30 | CM ---
Addendum entered by ELIDA Munoz 10/02/24 17:01:
ID updated. She is agreeable to plan for patient to go to [facility] for remaining two doses of IV ABX.
Placed a call to patient's son, Carlos Eduardo, as he has requested for all staff CM included to discuss all plans with him not patient as patient gets too confused and anxious.
Carlos Eduardo answered and stated that he would be able to help patient arrange for transportation from [facility] to Outpatient Infusion [facility]. He requested that the appointment times for Infusion, dates and location be texted to him at [phone] so that
he has all of the information.
Placed a call to Reina at [facility] and she stated to fax script [phone] and she will review and coordinate dates and times.
Have not thus far received return call from [facility]. Placed calls x3 left messages however no call has been returned.
Will need to follow up for appoint times in the am.
RN updated. Both ID and attending updated.
Addendum entered by ELIDA Munoz 10/02/24 12:41:
Placed a call to patient's son, Carlos Eduardo to discuss patient going to outpatient infusion however had to leave a voice mail message. Provided CM contact information. Will await return call.
Original Note:
Spoke with attending who stated that patient is medically stable for discharge. Script from ID sent through TT. IV Vanco 500 mg Q48, last dose, 10/07.
Placed a call to [facility] and spoke with Sydnie who stated that they won't come out for Infusion for less than a weeks' worth of dosages. Sydnie advised that patient should go to outpatient infusion.
Will call patient's son to discuss.
Plan: Case management will continue to follow and assist with discharge planning. Back to [facility] with possible return to [facility] if patient/son agreeable.
--- NOTE | 2024-10-02 13:53 | W.PN.NEPH.PH ---
Today's Communication / Plan
-
for discharge
Assessment/Plan
-
Assessment
Acute kidney injury
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
Metastatic recurrent renal cell cancer
Esophageal stricture
Hypertension
BPH chronic Driscoll
Hyperlipidemia
Plan
cr no change at 3.1
encourage po intake, chronically poor fluid intake
non oliguric with driscoll
follow BMP this and follow up with Dr. Iverson as outpatient
My office will call him for an appointment
Maintain chronic Driscoll, exchanged 09/25
BP soft, Amlodipine held, continuemidodrine
Previously spoke with the son on the phone in detail that possible chronic prerenal state and recent chemotherapy with ?nivolumab could have adversely affected his kidney function. Overall creatinine is stable now. Will need a follow-up with
nephrology moving forward-son will make a decision if want to see at [place] or locally. At discharge he will need BMP within a week
-
-
Date of Service: October 02, 2024
CC / HPI / ROS
-
Chief Complaint:
MONA
History of Present Illness:
MONA/Cr no change 3.1
acidosis bicarb at 20
BP stable
Driscoll in place, nonoliguric
poor po intake
Review of Systems:
no CP/SOB
s/p esophageal dilatation, tolerating diet
no diarrhea
Labs
-
Labs:
WBC 3.9 10^3/uL (4.8-10.8) L 09/26/24 06:32
RBC 3.17 10^6/uL (4.70-6.10) L 09/26/24 06:32
Hgb 10.0 g/dL (13.0-18.0) L 09/26/24 06:32
Hct 29.6 % (39.0-52.0) L 09/26/24 06:32
Plt Count 156 10^3/uL (130-400) 09/26/24 06:32
Sodium 134 mmol/L (135-145) L 10/02/24 04:49
Potassium 4.0 mmol/L (3.5-5.1) 10/02/24 04:49
Chloride 105 mmol/L (98-107) 10/02/24 04:49
Carbon Dioxide 20 mmol/L (22-30) L 10/02/24 04:49
BUN 32 mg/dl (9-20) H 10/02/24 04:49
Creatinine 3.1 mg/dL (0.7-1.3) H 10/02/24 04:49
eGFR 19.21 10/02/24 04:49
Glucose 95 mg/dl (70-99) 10/02/24 04:49
Calcium 7.5 mg/dl (8.4-10.2) L 10/02/24 04:49
Albumin 2.8 g/dl (3.5-5.0) L 09/23/24 06:20
Physical Exam
-
Vital Signs:
Vital Signs
Temp Pulse Resp BP Pulse Ox
97.4 F 84 18 120/62 98
10/02/24 07:05 10/02/24 12:03 10/02/24 07:05 10/02/24 12:03 10/02/24 07:05
Cardiovascular:: Regular rate and rhythm
Respiratory:: Bilateral: CTA
Lung Excursion:: Normal
Abdomen:: Nontender and Soft
Extremity Edema:: None: Bilateral:
Driscoll Catheter: Yes
[2024-10-02 14:38] VITALS: BP 131/79
--- NOTE | 2024-10-02 14:40 | W.PN.HOSP.TC ---
Today's Communication/Plan
-
d/c planning
Assessment / Plan
Assessment / Plan
Acute kidney injury
Solitary right kidney
-Creatinine of 4.1 on admission. Per [facility] records baseline Cr of 1.8
-UA did not show significant proteinuria/hematuria
-Renal bladder ultrasound normal.
-Related to chemotherapy? Discussed with Dr. Ro Hunter at [facility] and requested to hold carbometyx until seen in office.
-s/p bicarb gtt. IVF per nephro.
-nivolumab has A/E related to MONA, AIN. Seems to have plateaued around 3.
-Patient to continue follow-up with nephrology on outpatient basis.
Diarrhea could be antibiotics associated
-probiotics for now
-if repeat persistent episodes then check cdiff. low likelihood.
Catheter associated urinary tract infection from enterococci
Probable prostatitis
Chronic indwelling Driscoll catheter-driscoll exchanged on 09/25/2024
-UA showing moderate bacteria and significant pyuria
-Urine culture growing enterococci
-Patient allergic to penicillin, starting on vancomycin. s/p PICC line. Random vancomycin level wnl at 16
-Random vancomycin level therapeutic. No safe po options available.
-ID recommended 1 more week of IV vancomycin.
Esophageal stricture
Chronic dysphagia
History of GE junction stenosis
-Eats mechanical soft at assisted living supposed to be on pur�ed diet
-s/p EGD with esophageal dilatation on 09/27/24
Metastatic renal cell cancer status post left nephrectomy
-Known hepatic lesions on prior imaging
-On chemotherapy/immunotherapy-records in chart.
- received cabozantinib, nivolumab, xgeva,
BPH with chronic Driscoll catheter
-Continue dutasteride, tamsulosin
Essential hypertension
-Now with soft BP. Norvasc held. midorine started. may require IVF-defer to nephro.
Hyperlipidemia
-Continue statin, fenofibrate
Hypothyroidism
-Continue levothyroxine
Stage II sacral pressure injury
Full code
DVT prophylaxis�heparin
Anticipated Discharge: Within 24 hours
Subjective/Interval History
-
Date of Service: October 02, 2024
No reported problems overnight
Objective Data
-
Labs:
Laboratory Results
10/02/24
04:49
Sodium 134 L
Potassium 4.0
Chloride 105
Carbon Dioxide 20 L
BUN 32 H
Creatinine 3.1 H
Glucose 95
Calcium 7.5 L
Vital Signs:
Vital Signs
Temp Pulse Resp BP Pulse Ox
97.8 F 80 16 131/79 96
10/02/24 14:38 10/02/24 14:38 10/02/24 14:38 10/02/24 14:38 10/02/24 14:38
I&O
10/01/24 10/02/24 10/03/24
06:59 06:59 06:59
Intake Total 1620 / 1620 900 / 900
Output Total 1250 / 1250 860 / 860
Balance 370 / 370 40 / 40
Review of Systems
-
Respiratory: Reports No Symptoms
Cardiac: Reports No Symptoms
Abdomen/GI: Reports No Symptoms
Physical Exam
-
General: No Apparent Distress and Comfortable
HEENT: Negative Oxygen
Respiratory: Clear to Auscultation
Cardiac: Regular Rhythm and S1/S2; Negative Murmur or Rub
GI: Soft, Nontender, Nondistended and Normal Bowel Sounds
Genito-urinary: Driscoll (Clear urine)
Musculoskeletal: No Edema
Neuro: Awake, Alert, Oriented, No Motor Deficits and Nonfocal/Grossly Intact
Psych: Calm
--- NOTE | 2024-10-02 16:33 | W.PN.ID1 ---
Date of Service
Date of Service: October 02, 2024
Today's Communication
- finalized script given to adult protective caseworker
- stable for dc when outpatient IV antibiotics arranged
Assessment / Plan
Probable Prostatitis due to E faecalis
CAUTI
CKD - renal function stabilized
Reported allergy with penicillin - unknown
- last two-three sets of culturs with E faecalis - resistant to quinolones and tetracycline, would avoid linezolid given monique and known cancer
- favor two week course of IV vancomycin 09/24-10/07
- driscoll has been exchanged
- PICC placement (midlines generally not accepted for vancomycin)
- tentatively for vancomycin 500 mg IV q 48 hours
- finalized script given to adult protective caseworker
- stable for dc when outpatient IV antibiotics arranged
Chief Complaint
-: Other (probable prostatitis)
Subjective / Review of Systems
afebrile
bp stable
no complaints
Vital Signs / Physical Exam
Vital Signs
Vital Signs
Temp Pulse Resp BP Pulse Ox
97.8 F 80 16 131/79 96
10/02/24 14:38 10/02/24 14:38 10/02/24 14:38 10/02/24 14:38 10/02/24 14:38
Physical Exam
Constitutional: No Acute Distress
Cardiovascular: Regular Rate and S1/S2; Negative Murmur or Rub
Pulmonary: Clear and Symmetric; Negative Wheezes or Rales
Gastrointestinal: Soft, Non Tender, Non Distended and Normal Bowel Sounds
Genito-Urinary: Negative Suprapubic Tenderness
Skin: Warm and Dry; Negative Rash or Jaundice
Objective Data
Lab Data
Lab Results
09/26/24 06:32
10/02/24 04:49
Estimated Creat Clear 16 ml/min 10/02/24 04:49
Total Bilirubin 0.9 mg/dl (0.2-1.3) 09/23/24 06:20
AST 71 U/L (17-59) H 09/23/24 06:20
ALT 35 U/L (0-50) 09/23/24 06:20
Alkaline Phosphatase 51 U/L (38-126) 09/23/24 06:20
Most recent labs reviewed.
Micro Results:
09/22/24 21:10 Urine Culture - Final
Urine Enterococcus faecalis
09/23/24 10:04 MRSA Screen - Final
Nose No Methicillin Resistant Staphylococcus aureus isolated.
Care Review
Plan reviewed with: Physician (dr zaidi- mayelin)
[2024-10-02] MEDS: DESYREL 100 MG PO (21:23)
[2024-10-02] MEDS: LIPITOR 20 MG PO (21:23)
[2024-10-02 23:20] VITALS: BP 93/56
[2024-10-03] MEDS: SYNTHROID 75 MCG PO (04:40)
[2024-10-03 05:18] LABS: Blood Urea Nitrogen 30 mg/dl (9-20); Calcium 7.9 mg/dl (8.4-10.2); Carbon Dioxide 20 mmol/L (22-30); Chloride 104 mmol/L (98-107); Estimated Creatinine Clearance 16 ml/min; Glucose 95 mg/dl (70-99); Sodium 132 mmol/L (135-145); eGFR 19.98
[2024-10-03 05:21] LABS: Vancomycin Random 15.6 ug/ml
[2024-10-03 07:48] VITALS: BP 99/65
[2024-10-03] MEDS: ASPIR LOW (ENTERIC COATED) 81 MG PO (08:08)
[2024-10-03] MEDS: VITAMIN C 500 MG PO (08:08)
[2024-10-03] MEDS: VITAMIN D3 (cholecalciferol) 50 MCG PO (08:08)
[2024-10-03] MEDS: VISBIOME 2 CAP PO (08:08)
[2024-10-03] MEDS: SENOKOT-S PO (08:08)
[2024-10-03] MEDS: PROSCAR 5 MG PO (08:08)
[2024-10-03] MEDS: FOLVITE 1 MG PO (08:08)
[2024-10-03] MEDS: ProAmatine 5 MG PO (08:08)
[2024-10-03] MEDS: HEPARIN 5000 UNITS SC (08:09)
[2024-10-03] MEDS: DESENEX/MITRAZOL/ZEASORB 1 APPLIC TOPICAL (08:09)
--- NOTE | 2024-10-03 09:23 | PHA.VAN.FU ---
Vancomycin Assessment / Plan
- Assessment - Therapeutic Drug Monitoring
Date Random Level Dose SCR
09/24 2000mg 3.5
09/25 16.2 (18H) 750mg 3.4
09/26 18.4 (14H) no dose 3.2
09/27 14.8
(t1/2 ~76H) 500mg 3
09/28 15.6 (17H) no dose 2.9
09/29 13.5
(t1/2 ~118H) 500mg 3.1
09/30 14.2 (16.5H) 500mg 3.1
10/01 16 (19.5H) no dose 3
10/02 14
(t1/2 ~121H) 500mg 3.1
10/03 15.6 (17H) no dose 3
- Dosing Plan
Dosing by Level: Hold off on dosing today
Based on planned duration and level trend - appropriate to continue with 500mg Q48H to complete course on 10/07 (last dose 10/06)
However, if course to be extended, dose adjustment likely will be necessary based on half-life trend.
- Monitoring Plan
No level(s) ordered at this time: based on planned duration
Monitoring Comments: consider levels if course extended
- Follow Up
Pharmacy will continue to follow.
Vancomycin Follow UP
- -
Patient Age: 84
Patient Sex: Male
Vancomycin Day #: 10
Indication: Genito-Urinary Tract
Requesting Provider: Dr. Escobedo / Dr. Nava
Pertinent Antimicrobial Allergies:
penicillins - unknown
sulfonamide antibiotics - unknown
Height / Weight:
Height 5 ft 5 in
Actual Weight 75.614 kg
IBW in k.5
Pertinent Past Medical History: Metastatic RCC s/p L. nephrectomy
- Vital Signs / Lab Results
Temp Pulse Resp BP Pulse Ox
98.1 F 71 16 99/65 98
10/03/24 07:48 10/03/24 08:08 10/03/24 07:48 10/03/24 08:08 10/03/24 07:48
Lab Results - Chemistry
10/01/24 10/02/24 10/03/24
05:22 04:49 04:42
BUN 33 H 32 H 30 H
Creatinine 3.0 H 3.1 H 3.0 H
Estimated Creat Clear 16 16 16
Therapeutic Drug Monitoring
Random Vancomycin 15.6 ug/ml 10/03/24 04:42
--- NOTE | 2024-10-03 09:56 | CM ---
Addendum entered by ELIDA Munoz 10/03/24 11:50:
Latosha placed a call back to and stated that [facility] would be able to transport patient as well. [phone]. Patient's son called and stated that [facility] can do it but the appointment times would have to be later as their first picker tender helper time
is 8:45 and that would be cutting it too close. Placed a call to Anu at [facility] and she stated that patient can come on Wednesday, 10/04 at 10:45 and Friday 10/06 at 1:00. Carlos Eduardo stated that those times would work.
Imm reviewed on chart.
Addendum entered by ELIDA Munoz 10/03/24 10:38:
Placed a call to [facility] however she stated that there are no resources to transport patient to and from [facility] unless the appointment falls on Tuesdays or .
Addendum entered by ELIDA Munoz 10/03/24 10:31:
Patient's son called and stated that he is having a difficult time arranging for transportation. Will explore resources.
Addendum entered by ELIDA Munoz 10/03/24 10:16:
Placed a call to [facility] and spoke with patient's RN Latosha, who stated that # For report [phone] and
Patient will need w/c van to return home.
Original Note:
Placed a call to [facility] and spoke spoke with Anu who stated that Patient has an appointment tomorrow, Wednesday 9:15 am, and Wednesday at 9:15. She stated that she would reach out to if any further information is needed but verified that patient
can be discharged.
Spoke with Son to update. He is agreeable to those dates and times and trying to arrange for transportation.
Attending updated, and stated that he will medically clear patient for discharge.
Plan: Case management will continue to follow and assist with discharge planning. Back to [facility].
[2024-10-03 11:19] VITALS: BP 144/76
--- NOTE | 2024-10-03 14:17 | W.PN.HOSP.TC ---
Today's Communication/Plan
-
d/c home
Assessment / Plan
Assessment / Plan
Acute kidney injury
Solitary right kidney
-Creatinine of 4.1 on admission. Per [facility] records baseline Cr of 1.8
-UA did not show significant proteinuria/hematuria
-Renal bladder ultrasound normal.
-Related to chemotherapy? Discussed with Dr. Ro Hunter at [facility] and requested to hold Cabometyx until seen in office.
-s/p bicarb gtt. IVF per nephro.
-nivolumab has A/E related to MONA, AIN. Seems to have plateaued around 3.
-Patient to continue follow-up with nephrology on outpatient basis.
Diarrhea could be antibiotics associated
-probiotics for now
-if repeat persistent episodes then check cdiff. low likelihood.
Catheter associated urinary tract infection from enterococci
Probable prostatitis
Chronic indwelling Driscoll catheter-driscoll exchanged on 09/25/2024
-UA showing moderate bacteria and significant pyuria
-Urine culture growing enterococci
-Patient allergic to penicillin, starting on vancomycin. s/p PICC line. Random vancomycin level wnl at 16
-Random vancomycin level therapeutic. No safe po options available.
-ID recommended 1 more week of IV vancomycin.
Esophageal stricture
Chronic dysphagia
History of GE junction stenosis
-Eats mechanical soft at assisted living supposed to be on pur�ed diet
-s/p EGD with esophageal dilatation on 09/27/24
Metastatic renal cell cancer status post left nephrectomy
-Known hepatic lesions on prior imaging
-On chemotherapy/immunotherapy-records in chart.
- received cabozantinib, nivolumab, xgeva,
BPH with chronic Driscoll catheter
-Continue dutasteride, tamsulosin
Essential hypertension
-Now with soft BP. Norvasc held. midorine started. may require IVF-defer to nephro.
Hyperlipidemia
-Continue statin, fenofibrate
Hypothyroidism
-Continue levothyroxine
Stage II sacral pressure injury
Full code
DVT prophylaxis�heparin
More than 30 minutes spent in discharge including
Final examination of the patient
Summarizing hospital stay
Instructions for continuing care to all relevant caregivers
Preparation of discharge records, prescriptions, and referral forms
Total time spent (in minutes): 38 mins
Anticipated Discharge: Today
Subjective/Interval History
-
Date of Service: October 03, 2024
no new issues overnight
Objective Data
-
Labs:
Laboratory Results
10/03/24
04:42
Sodium 132 L
Potassium 4.0
Chloride 104
Carbon Dioxide 20 L
BUN 30 H
Creatinine 3.0 H
Glucose 95
Calcium 7.9 L
Vital Signs:
Vital Signs
Temp Pulse Resp BP Pulse Ox
98.2 F 86 18 144/76 96
10/03/24 11:19 10/03/24 11:19 10/03/24 11:19 10/03/24 11:19 10/03/24 11:19
I&O
10/02/24 10/03/24 10/04/24
06:59 06:59 06:59
Intake Total 900 / 900 960 / 960 480 / 480
Output Total 860 / 860 700 / 700 750 / 750
Balance 40 / 40 260 / 260 -270 / -270
Physical Exam
-
General: No Apparent Distress and Comfortable
HEENT: Negative Oxygen
Respiratory: Clear to Auscultation
Genito-urinary: Driscoll (Clear urine)
Musculoskeletal: No Edema
Neuro: Awake, Alert, Oriented, No Motor Deficits and Nonfocal/Grossly Intact
Psych: Calm
== END 2024-10-03 11:43 | disposition home health service (06) | DRG 699 ==
LOC: 3 WEST ACU 21:29
PROVIDERS: Hospitalist; Student in an Organized Health Care Education/Training Program; ADMITTING PHYSICIAN Hospitalist; ATTENDING PHYSICIAN Hospitalist; CONSULT PHYSICIAN Specialist; CONSULT PHYSICIAN Student in an Organized Health Care Education/Training Program; EMERGENCY PHYSICIAN Emergency Medicine; FAMILY PHYSICIAN Family Medicine
PROC: 0DJ08ZZ Inspection of Upper Intestinal Tract, Via Natural or Artificial Opening Endoscopic (ICD-10-PCS; 2024-09-27)
DX: T83.518A Infection and inflammatory reaction due to other urinary catheter, initial encounter (principal); N17.9 Acute kidney failure, unspecified; N39.0 Urinary tract infection, site not specified; Q39.6 Congenital diverticulum of esophagus; Z16.23 Resistance to quinolones and fluoroquinolones; Y84.6 Urinary catheterization as the cause of abnormal reaction of the patient, or of later complication, without mention of misadventure at the time of the procedure; K22.2 Esophageal obstruction; I10 Essential (primary) hypertension; E78.00 Pure hypercholesterolemia, unspecified; E03.9 Hypothyroidism, unspecified; L89.152 Pressure ulcer of sacral region, stage 2; K22.0 Achalasia of cardia; Z79.82 Long term (current) use of aspirin; Z87.11 Personal history of peptic ulcer disease; Z87.891 Personal history of nicotine dependence; Z88.0 Allergy status to penicillin; Z90.5 Acquired absence of kidney
CPT/HCPCS: 71045; 76770; 80048; 80053; 80202; 81003; 81015; 82570; 83735; 84300; 85025; 85027; 87070; 87077; 87086; 87186; 93005; 99284; C1726; J0585

== ENCOUNTER → 2024-09-26 06:08 | Day surgery (SDC) | payer OTHER, SELFPAY | LOC: SDS 06:08 | PROVIDERS: ATTENDING PHYSICIAN Student in an Organized Health Care Education/Training Program | DX: K22.89 Other specified disease of esophagus (principal); Z53.9 Procedure and treatment not carried out, unspecified reason | CPT/HCPCS: 43235 ==

== ENCOUNTER 2024-10-06 09:18 | Outpatient (RCR) | payer OTHER, SELFPAY ==
[2024-10-04 10:10] VITALS: BP 116/60
[2024-10-04] MEDS: VANCOCIN HCL 500 MG 100 IV (10:22)
[2024-10-04 12:09] LABS: Vancomycin Trough 27.4 ug/ml (5-20)
[2024-10-06 10:11] LABS: Vancomycin Trough 13.9 ug/ml (5-20)
[2024-10-06 10:21] VITALS: BP 109/59
[2024-10-06] MEDS: VANCOCIN HCL 500 MG 100 IV (10:26)
--- NOTE | 2024-10-06 12:06 | PTCARENOTE ---
pt's right sl picc line removed per md order, 46cm retrieved, pt tolerated well, pressure dressing applied. no active bleeding noted after 15minutes.
== END 2024-10-09 09:11 | disposition home or self-care (01) ==
LOC: OID 09:18
PROVIDERS: ATTENDING PHYSICIAN Student in an Organized Health Care Education/Training Program
DX: N41.1 Chronic prostatitis (principal); B95.2 Enterococcus as the cause of diseases classified elsewhere
CPT/HCPCS: 36589; 36591; 80202; 96365

== ENCOUNTER 2024-10-17 13:58 | Inpatient (IN) | payer OTHER, SELFPAY ==
[2024-10-17] VITALS (10 sets, daily range): BP systolic 96–136; BP diastolic 42–67; BMI 26.4
--- NOTE | 2024-10-17 11:24 | ED.GENMED ---
History of Present Illness
General
Chief Complaint: Abnormal Lab Value
Source: patient and records
Exam Limitations: none
Time Seen by Provider: 10/17/24 11:05
History of Present Illness
History of Present Illness:
84yoM with a history of renal cell carcinoma s/p L nephrectomy in the currently receiving immunotherapy presenting for evaluation of an abnormal outpatient lab. Patient was recently admitted from 09/22/2024 to 10/04/2024 for acute renal failure.
He presented with a creatinine of 4.1 and creatinine was 3.0 at time of discharge. Patient had outpatient blood work 4 days ago and creatinine was 5.25 at that time. Patient has no complaints at this time and is asymptomatic. He denies any
shortness of breath, vomiting, diarrhea, fevers. He states he is drinking lots of fluids at home. He has a chronic Coburn catheter and urine output has been normal.
Past History
Past History
ED Past Medical History: Other (Kidney cancer status post left nephrectomy, hypertension, hyperlipidemia, BPH)
ED Past Surgical History: Other (Left-sided nephrectomy, inguinal hernia repair, septoplasty)
Social History
Tobacco: Non-smoker
Alcohol: None
Drug: None
Personal:
Living: other
Phy Exam
General Physical Exam
General Presentation: well appearing and no apparent distress
General age: appears stated age
General Skin: warm and dry
General Habitus: normal
General Mental: alert
ENT Exam
ENT Exam: normocephalic
Cardiovascular Exam
Cardiovascular Exam: regular rate/rhythm
Pulmonary Exam
Pulmonary Exam: lungs clear, no respiratory distress, no rales, no crackles and no rhonchi
Gastrointestinal Exam
Gastrointestinal Exam: non tender, soft and non distended
Genitourinary Exam Male
Exam Male: other (Chronic indwelling Coburn draining yellow urine)
Neurological Exam
Neurological Exam: alert
Martín Coma Scale
Eye Opening: Spontaneous
Verbal Response: Oriented
Motor Response: Obeys Commands
GCS Total Score: 15
Skin Exam
Skin Exam: normal color and warm/dry
Psychiatric Exam
Psychiatric Exam: normal mood/affect
Course
Orders/Labs/Results
Orders:
Orders
10/17/24 11:10
Basic Metabolic Panel Urgent
Complete Blood Count/With Diff Urgent
10/17/24 11:23
Urinalysis Reflex To Culture Urgent
Date Specimen was Collected: 10/17/24
Time Specimen was Collected: 11:17
Urine Microscopic Reflex Cult Urgent
Urine Culture Urgent
RUBINA Source: U
Specimen Description:
Date Specimen was Collected: 10/17/24
Time Specimen was Collected: 11:17
10/17/24 11:24
Renal & Bladder US [US Renal With Bladder] Urgent
Comment:
Reason For Exam: MONA
10/17/24 11:41
0.9% Sodium Chloride 1000 ml [Nss] 1,000 ml IV BOLUS
10/17/24 12:34
Jluzk-Ojad-Onnqmmu Urgent
Potassium Urgent
10/17/24 13:32
Admit/Transfer Patient As Directed
Co-Sign Provider:
Level of Care: Inpatient admission
Assign to:: Medical/Surgical
Physician / Group: anamaria
Diagnosis: acute kidney injury
Reason for Hospitalization: acute kidney injury
Expected length of stay greater than two midnights?: Yes
ELOS- Estimated Length of Stay in days: 3
I certify the patient meets the requirements for IP care: Yes
10/17/24 13:33
PRN Pain Medication Management As Directed
May give lesser potent ordered pain med per pt: Yes
preference::
Protocol:: Medication orders for pain may be administered in a
manner that supports deferring to patient preference
when the pt is:
- Requesting an ordered lesser potent pain medication.
Least to most potent pain medications are defined
as: acetaminophen < NSAID < tramadol < opioids
(morphine, oxycodone, hydromorphone).
- Requesting a lesser dose of the same medication IF
ORDERED.
- Requesting a less intrusive route of administration
if both routes are prescribed by the provider (PO <
IV).
10/17/24 13:34
Code Status As Directed
Resuscitation Status: Full Code
10/17/24 13:45
NEPHROLOGY CONSULT Routine
Consulting Provider: Justin Iverson
Was physician already notified: Yes
Abnormal Lab Results
10/17/24 10/17/24 10/17/24
11:10 11:23 12:34
RBC 2.86 L 10^6/uL
(4.70-6.10)
Hgb 9.1 L g/dL
(13.0-18.0)
Hct 27.3 L %
(39.0-52.0)
MCV 95.5 H fL
(80.0-94.0)
MCH 31.8 H pg
(27.0-31.0)
RDW 16.1 H %
(11.5-14.5)
Immature Gran % 0.6 H %
(0-0.5)
Monocytes % 10.8 H %
(1.7-9.3)
Chloride 108 H mmol/L
(98-107)
Carbon Dioxide 17 L mmol/L
(22-30)
BUN 52 H mg/dl
(9-20)
Creatinine 5.0 H* mg/dL
(0.7-1.3)
Glucose 110 H mg/dl
(70-99)
Calcium 8.3 L mg/dl
(8.4-10.2)
Direct Bilirubin 0.5 H mg/dl
(0.0-0.4)
Total Protein 6.0 L g/dl
(6.3-8.2)
Albumin 3.4 L g/dl
(3.5-5.0)
Ur Occult Blood Reflex 3+ A
(Negative)
Leukocyte Esterase Rfl 3+ A
(Negative)
Urine WBC (Reflex) >100 A /HPF
(0-5)
Urine Bacteria (Reflex) Moderate A
(Negative)
Urine Albumin (Reflex) 2+ A
(Neg - Trace)
10/17/24 11:10
10/17/24 12:34
Vital Signs
Initial and Last Documented VS:
Initial Vital Signs
Temp Pulse Resp BP Pulse Ox
97.8 F 83 18 136/42 96
10/17/24 11:11 10/17/24 11:11 10/17/24 11:11 10/17/24 11:11 10/17/24 11:11
Last Documented Vital Signs
Temp Pulse Resp BP Pulse Ox
97.8 F 72 24 104/59 96
10/17/24 11:11 10/17/24 15:00 10/17/24 15:00 10/17/24 15:00 10/17/24 11:11
MDM/Problems Addressed
Differential Diagnosis Includes:
84yoM here for elevated creatinine/BUN on outpatient labs. Recently hospitalized for MONA. Creatinine 3.0 at time of discharge and creatinine was 5.25 on outpatient labs. Asymptomatic. Hx of prior nephrectomy. VSS. He is well appearing in no
distress. Differential diagnosis includes but is not limited to: acceleration of CKD, dehydration, postrenal obstruction
Initial ED plan: Check CBC, CMP, UA, and renal ultrasound.
*Critical Care Note
Total Time (30-74mins, 75-104mins- exclusive of procedures): Not Applicable
Update Note
Update Note:
Creatinine today is 5.0. Bicarb is 17. Potassium is normal. UA with 2+ protein. Leukocytes and bacteria also appreciated. Patient just finished course of IV antibiotics for a UTI. Suspect this is colonization related to his chronic catheter.
IV fluid bolus ordered and patient admitted for further management.
ED Attending Note
-
Portions of this chart may have been created with voice recognition software.� Occasional wrong word or��sound alike� substitutions may have occurred due to the inherent limitations of voice recognition software.
Discharge Plan
Departure
Patient Disposition: Admit
Date of Disposition: 10/17/24
Time of Disposition: 13:10
Presentation/result/management discussed w/ accepting MD/DO: Hospitalist
Discharge Problem:
Acute kidney injury
Interventions
Interventions:
*Risk Screen - Suicide Last Done: 10/17/24 10:56
*General Assessment Last Done: 10/17/24 10:56
*Neglect/Abuse Screening Last Done: 10/17/24 10:56
*ED COVID-19 Vaccine History Last Done: 10/17/24 10:56
[2024-10-17 11:25] LABS: % Basophils 1.2 % (0-2); % Eosinophils 4.4 % (0-6); % Immature Granulocytes 0.6 % (0-0.5); % Lymphocytes 27.8 % (20.5-51.1); % Monocytes 10.8 % (1.7-9.3); % Neutrophils 55.2 % (42.2-75.2); Absolute Basophils 0.1 10^3/uL (0-0.2); Absolute Eosinophils 0.2 10^3/uL (0-0.7); Absolute Lymphocytes 1.3 10^3/uL (1.2-3.4); Absolute Monocytes 0.5 10^3/uL (0.1-0.6); Absolute Neutrophils 2.7 10^3/uL (1.4-6.5); Hematocrit 27.3 % (39.0-52.0); Hemoglobin 9.1 g/dL (13.0-18.0); Mean Corp Hgb Conc. 33.3 g/dL (33.0-37.0); Mean Corpuscular Hgb 31.8 pg (27.0-31.0); Mean Corpuscular Volume 95.5 fL (80.0-94.0); Mean Platelet Volume 9.5 fL (7.4-10.4); Nucleated Red Blood Cells % 0 % (-); Platelet Count 221 10^3/uL (130-400); Red Blood Cell Count 2.86 10^6/uL (4.70-6.10); Red Cell Dist. Width 16.1 % (11.5-14.5); White Blood Cell Count 4.8 10^3/uL (4.8-10.8)
[2024-10-17 11:39] LABS: Blood Urea Nitrogen 52 mg/dl (9-20); Calcium 8.3 mg/dl (8.4-10.2); Carbon Dioxide 17 mmol/L (22-30); Chloride 108 mmol/L (98-107); Estimated Creatinine Clearance 10 ml/min; Glucose 110 mg/dl (70-99); Sodium 136 mmol/L (135-145); eGFR 10.83
[2024-10-17 11:41] LABS: Urine Albumin 2+ (Neg - Trace); Urine Bilirubin Negative (Negative); Urine Character Slightly Cloudy (Clear); Urine Color Yellow; Urine Glucose Negative (Negative); Urine Ketone Negative (Negative); Urine Leukocyte 3+ (Negative); Urine Nitrite Negative (Negative); Urine Occult Blood 3+ (Negative); Urine Urobilinogen Negative (Neg - 1+)
[2024-10-17 11:53] LABS: Urine Bacteria Moderate (Negative); Urine White Cell >100 /HPF (0-5)
[2024-10-17 11:54] LABS: Urine Red Blood Cell 0-2 /HPF (0-2)
[2024-10-17 11:55] LABS: Urine Squamous Cell 0-2 /LPF (Few); Urine Urothelial Cell 0-2 /LPF (FEW)
[2024-10-17] MEDS: NSS 1000 IV (12:16)
[2024-10-17 13:00] LABS: ALT (SGPT) 26 U/L (0-50); AST (SGOT) 57 U/L (17-59); Albumin 3.4 g/dl (3.5-5.0); Alkaline Phosphatase 47 U/L (38-126); Direct Bilirubin 0.5 mg/dl (0.0-0.4); Potassium 4.7 mmol/L (3.5-5.1); Total Bilirubin 0.8 mg/dl (0.2-1.3)
--- NOTE | 2024-10-17 13:11 | HPS.HSE ---
Addendum entered and electronically signed by Talia Awad MD 10/17/24 14:07:
see update note for addendum
Original Note:
Family Physician
-
Family Physician: Kristine Bernal DO
Chief Complaint
-
elevated creatine
History of Present Illness
84yoM with a history of renal cell carcinoma s/p L nephrectomy, hypertension, hyperlipidemia, BPH, hypothyroidism, GERD patient was recently admitted from 09/22/2024 to 10/04/2024 for acute renal failure.Patient had outpatient blood work 4 days ago and
creatinine was 5.25 at that time. He denies any shortness of breath, vomiting, diarrhea, fevers. He states he is drinking lots of fluids at home. He has a chronic Coburn catheter and urine output has been normal. Patient denies any headache,
dizzy. Patient denied any abdominal pain, nausea, vomiting.
Upon arrival he was noted to have a creatinine of 5.0, BUN 52. Patient received 1 L normal saline in the ER. Admitting for further management
Medical History
Past Medical History
Past Medical History: Reports Other
Additional Past Medical History:
Dysphagia
Duodenal ulcer
Congenital diverticulum of esophagus
Achalasia of cardia
Bone neoplasm
Stage IV chronic kidney disease
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
Hypertension
Hyperlipidemia
Hypothyroidism
Past Surgical History: Reports Other
Additional Past Surgical History:
Parathyroidectomy
Nephrectomy
Social History
Tobacco: Non-smoker
Alcohol: None
Drug: None
Personal: Single
Living: Alone
Family History
Family History: Not pertinent
Allergies / Home Medications
Allergies reflects when Allergies were last updated in [facility].
Home Medications with original date entered in [facility]
Allergy/Medication List:
Allergies
Allergy/AdvReac Type Severity Reaction Status Date / Time
Penicillins Allergy Unknown Verified 10/17/24 11:01
Sulfa (Sulfonamide Allergy Unknown Verified 10/17/24 11:01
Antibiotics)
Home Medications
acetaminophen 325 mg tablet 650 mg PO Q6HPRN PRN mild pain 05/12/24
aspirin 81 mg tablet,delayed release 81 mg PO DAILY Blood Clot Prevention/Tx 05/12/24
atorvastatin 20 mg tablet 20 mg PO HS High Cholesterol 05/12/24
cholecalciferol (vitamin D3) 50 mcg (2,000 unit) tablet (Vitamin D3) 50 mcg PO DAILY Supplement 05/12/24
levothyroxine 75 mcg tablet 75 mcg PO DAILY Thyroid 05/12/24
magnesium hydroxide 400 mg/5 mL oral suspension (Milk of Magnesia) 30 ml PO DAILYPRN PRN constipation 05/12/24
tamsulosin 0.4 mg capsule 0.8 mg PO NOON Urinary Issue 05/12/24
trazodone 100 mg tablet 100 mg PO HS Sleep 05/12/24
dutasteride 0.5 mg capsule (Avodart) 0.5 mg PO DAILY Urinary Issue 08/27/24
pantoprazole 40 mg tablet,delayed release (Protonix) 40 mg PO BID GERD 09/23/24
amlodipine 5 mg tablet (Norvasc) 5 mg PO DAILY 10/17/24
fenofibrate nanocrystallized 145 mg tablet (Tricor) 145 mg PO DAILY 10/17/24
methocarbamol 500 mg tablet 500 mg PO Q6HPRN PRN muscle spasms 10/17/24
midodrine 5 mg tablet 5 mg PO TID 10/17/24
oxycodone 5 mg tablet 5 mg PO Q8HPRN PRN severe pains 10/17/24
Review of Systems
-
Constitutional: Reports No Symptoms
EENT: Reports No Symptoms
Respiratory: Reports No Symptoms
Cardiac: Reports No Symptoms
Abdomen/GI: Reports No Symptoms
: Reports No Symptoms
Musculoskeletal: Reports No Symptoms
Skin: Reports No Symptoms
Neurological: Reports No Symptoms
Endocrine: Reports No Symptoms
Hematologic/Lymphatic: Reports No Symptoms
Psych: Reports No Symptoms
Physical Exam
Vital Signs
Vital Signs
Temp Pulse Resp BP Pulse Ox
97.8 F 83 18 136/42 96
10/17/24 11:11 10/17/24 11:11 10/17/24 11:11 10/17/24 11:11 10/17/24 11:11
Physical Exam
General: Well Developed, Well Nourished and No Apparent Distress
HEENT: NormoCephalic, Moist mucous membranes and Atraumatic
Respiratory: Clear
Cardiac: S1/S2 and Regular Rhythm; No Murmur or Rub
GI: Soft, Non Tender, Non Distended and Normal Bowel Sounds; No Organomegaly
Rectal: Deferred by Provider
Musculoskeletal: No Clubbing, No Cyanosis and No Edema
Skin: No Rash
Neuro: AO x 3 and Nonfocal/grossly intact
Psych: Calm
Laboratory Results
-
10/17/24 11:10
10/17/24 12:34
Laboratory Results
Total Bilirubin 0.8 mg/dl (0.2-1.3) 10/17/24 12:34
AST 57 U/L (17-59) 10/17/24 12:34
ALT 26 U/L (0-50) 10/17/24 12:34
Alkaline Phosphatase 47 U/L (38-126) 10/17/24 12:34
Data Reviewed
-
Lab Data: Labs Reviewed by me
Impression/Plan
-
#acute kidney injury on CKD stage IV/metabolic acidosis
# Solitary right kidney
-cr 5.0,co2 17
-renal US pending
-Patient received normal saline in ER
-BMP in a.m.
-Nephrology consulted
# Anemia of chronic disease
-Hemoglobin stable at 9.1
-no active bleeding
-Continue to monitor
# BPH
#Chronic indwelling Coburn catheter
-due to be changed next week.
-Continue dutasteride, tamsulosin
#Esophageal stricture
#Chronic dysphagia
#History of GE junction stenosis
-Mechanical soft diet
-s/p EGD with esophageal dilatation on 09/27/24
#Metastatic renal cell cancer status post left nephrectomy
-Known hepatic lesions
-His last immunotherapy was a month ago
#Essential hypertension
-Now with soft BP.
-Norvasc continued with hold parameters
-Midodrine continued
#Hyperlipidemia
-Continue statin, fenofibrate
Hypothyroidism
-Continue levothyroxine
Full code
DVT prophylaxis�heparin
--- NOTE | 2024-10-17 14:10 | W.PN.UPDATE ---
Update Note
Progress Note Update
I saw and examined the patient.
The COSMETOLOGY INSTRUCTOR Frankie's note was reviewed and I agree with the note.
Comment: 84 y/o M presents to ER for abnormal labs. Recent prolonged hospitalization 09/22 to 10/04 for acute renal failure (discharged with Cr 3.0 at that time) and E faeclis prostatitis. Blood work earlier this week showed Cr 5.2. Patient denies any
symptoms at present. Chronic Coburn in place, draining well.
Exam:
General: Well Developed, Well Nourished and No Apparent Distress
HEENT: Normocephalic, Moist mucous membranes and Atraumatic
Respiratory: Clear
Cardiac: S1/S2 and Regular Rhythm; No Murmur or Rub
GI: Soft, Non Tender, Non Distended and Normal Bowel Sounds; No Organomegaly
Rectal: Deferred by Provider
Musculoskeletal: No Clubbing, No Cyanosis and No Edema
Skin: No Rash
Neuro: AO x 3 and Nonfocal/grossly intact
Psych: Calm
Assessment:
MONA on CKD stage 4
Acute metabolic acidosis
Hx of solitary kidney after L nephrectomy
- check urine studies including Eos with recent Abx use
- Renal US pending
- Nephrology consulted; IVF per Nephrology
Recent E. Faecalis prostatitis
- await urine culture (UA abnormal)
- normal WBC, no fevers. monitor off Abx for now. add Vanco if spikes fever or other signs of infection
Anemia of chronic disease
- Hemoglobin stable at 9.1
- no active bleeding
- continue to monitor
BPH
Chronic indwelling Coburn catheter
- due to be changed next week (last exchange was 09/25/24)
- continue dutasteride, tamsulosin
Esophageal stricture
Chronic dysphagia
History of GE junction stenosis
- Mechanical soft diet
- s/p EGD with esophageal dilatation on 09/27/24
Metastatic renal cell cancer status
- Known hepatic lesions
- His last immunotherapy was a month ago
- holding Cabometyx
Essential hypertension
- Norvasc continued with hold parameters
- Midodrine continued
Hyperlipidemia
- continue statin, fenofibrate
Hypothyroidism
- continue levothyroxine
DVT ppx: SC Heparin
Code: Full
--- NOTE | 2024-10-17 15:19 | W.CON.NEPH ---
Consultation
-
Date/Time Consultation Requested: 10/17/2024 2 PM
Date/Time Consultation Performed: 10/17/2024 3 PM
Requesting Provider: Dr. Awad
Performing Provider: Dr. Iverson
Reason for Consultation: MONA
Medical History
-
Chief Complaint: MONA
History of Present Illness:
This is an 84-year-old gentleman who has history of renal cell cancer status post left nephrectomy back in 1984 who had recurrence and then metastatic disease which was treated with 'infusions' every other week since December of last year. He does not
know the name of this drug. He is followed by oncology out in [facility]. He has a chronic Coburn catheter due to history of retention. He also has hypertension on a monotherapy regimen. He was admitted to the hospital last month with acute
kidney injury on blood work. His creatinine was 4.1 from a baseline of 1.0 in April 2024. At that time it was presumed that the acute kidney injury was due to his oncology regimen and possibly chronic prerenal state with low blood pressures.
His chemo regimen was discontinued and he was placed on midodrine. His creatinine at settled at 3.0. After discharge he had additional blood work which had shown a rise in creatinine now up to 5.2 and he was asked to return to the emergency room
for evaluation. He denies any new issues since discharge. He maintains his chronic Coburn catheter with antibiotics without issues.
Past Medical History
Renal cell cancer, left nephrectomy, recurrent metastatic disease to liver and lung by patient's report
Hypertension
BPH
Chronic Coburn catheter
Hyperlipidemia
GERD
Esophageal stricture status post dilation, Botox
Plan
Patient says that he drinks at most 16 ounces per day. He will increase this in the future
Continue isotonic IV fluids saline
Check fractional excretion of sodium
follow BMP
Maintain chronic Coburn
No urgent needs for dialysis currently
Will need records from his oncologist
Social History
Tobacco: Former Smoker
Alcohol: None
Family History
Family History: Not Pertinent
Allergies / Home Medications
Allergy/AdvReac Type Severity Reaction Status Date / Time
Penicillins Allergy Unknown Verified 10/17/24 11:01
Sulfa (Sulfonamide Allergy Unknown Verified 10/17/24 11:01
Antibiotics)
�Medication �Instructions �Recorded �Confirmed �Type
acetaminophen 325 mg tablet 650 mg PO Q6HPRN PRN mild pain 05/12/24 10/17/24 History
aspirin 81 mg tablet,delayed 81 mg PO DAILY Blood Clot 05/12/24 10/17/24 History
release Prevention/Tx
atorvastatin 20 mg tablet 20 mg PO HS High Cholesterol 05/12/24 10/17/24 History
cholecalciferol (vitamin D3) 50 50 mcg PO DAILY Supplement 05/12/24 10/17/24 History
mcg (2,000 unit) tablet (Vitamin
D3)
levothyroxine 75 mcg tablet 75 mcg PO DAILY Thyroid 05/12/24 10/17/24 History
magnesium hydroxide 400 mg/5 mL 30 ml PO DAILYPRN PRN constipation 05/12/24 10/17/24 History
oral suspension (Milk of Magnesia)
tamsulosin 0.4 mg capsule 0.8 mg PO NOON Urinary Issue 05/12/24 10/17/24 History
trazodone 100 mg tablet 100 mg PO HS Sleep 05/12/24 10/17/24 History
dutasteride 0.5 mg capsule 0.5 mg PO DAILY Urinary Issue 08/27/24 10/17/24 History
(Avodart)
pantoprazole 40 mg tablet,delayed 40 mg PO BID GERD 09/23/24 10/17/24 History
release (Protonix)
amlodipine 5 mg tablet (Norvasc) 5 mg PO DAILY 10/17/24 10/17/24 History
fenofibrate nanocrystallized 145 145 mg PO DAILY 10/17/24 10/17/24 History
mg tablet (Tricor)
methocarbamol 500 mg tablet 500 mg PO Q6HPRN PRN muscle spasms 10/17/24 10/17/24 History
midodrine 5 mg tablet 5 mg PO TID 10/17/24 10/17/24 History
oxycodone 5 mg tablet 5 mg PO Q8HPRN PRN severe pains 10/17/24 10/17/24 History
Review of Systems
-
No chest pain or shortness of breath
All other systems: Negative unless noted
Physical Exam
Vital Signs
Vital Signs
Temp Pulse Resp BP Pulse Ox
97.8 F 72 24 104/59 96
10/17/24 11:11 10/17/24 15:00 10/17/24 15:00 10/17/24 15:00 10/17/24 11:11
Lab Results
WBC 4.8 10^3/uL (4.8-10.8) 10/17/24 11:10
RBC 2.86 10^6/uL (4.70-6.10) L 10/17/24 11:10
Hgb 9.1 g/dL (13.0-18.0) L 10/17/24 11:10
Hct 27.3 % (39.0-52.0) L 10/17/24 11:10
Plt Count 221 10^3/uL (130-400) 10/17/24 11:10
Sodium 136 mmol/L (135-145) 10/17/24 11:10
Potassium 4.7 mmol/L (3.5-5.1) 10/17/24 12:34
Chloride 108 mmol/L (98-107) H 10/17/24 11:10
Carbon Dioxide 17 mmol/L (22-30) L 10/17/24 11:10
BUN 52 mg/dl (9-20) H 10/17/24 11:10
Creatinine 5.0 mg/dL (0.7-1.3) H* 10/17/24 11:10
eGFR 10.83 10/17/24 11:10
Glucose 110 mg/dl (70-99) H 10/17/24 11:10
Calcium 8.3 mg/dl (8.4-10.2) L 10/17/24 11:10
Albumin 3.4 g/dl (3.5-5.0) L 10/17/24 12:34
Laboratory Tests
09/26/24 10/03/24
06:32 04:42
WBC 3.9 L
Hgb 10.0 L
Sodium 132 L
Creatinine 3.0 H
On October 13, 2024 creatinine 5.25
Physical Exam
Patient is awake alert oriented and in no distress. Mood and affect were pleasant, insight and judgment were good. Pupils are equal round and reactive to light, extraocular movements are intact, sclera were anicteric. Hearing was normal, ears and
nose are intact. Oropharynx was clear. Neck was supple with trachea midline and no thyromegaly. Heart was regular rate and rhythm without rubs. Lower extremities without edema. Lungs were clear to auscultation bilaterally and with normal
excursion. Abdomen was soft, nontender, with normal active bowel sounds, and no hepatosplenomegaly. Skin was without rash and with normal turgor.
Data Reviewed
-
Radiology: Image Personally Visualized and interpreted (Chest x-ray 09/27/2024 by my reading no acute disease, right PICC line)
Ultrasound: Discussed with Physician (Renal ultrasound 09/23/2024 right kidney 13.9 cm no hydronephrosis, trabeculated bladder)
Labs: Labs Reviewed by me
Old Records: Reviewed
Assessment/Plan
-
Assessment
Acute kidney injury
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
Metastatic recurrent renal cell cancer
Esophageal stricture
Hypotension controlled with midodrine
BPH chronic Coburn
Hyperlipidemia
Anemia
Metabolic acidosis
Plan
Follow BMP
Status post IV fluids
Continue midodrine
Check echocardiogram
Check cortisol
Check vancomycin level
Maintain chronic Coburn catheter
I discussed with patient the rising creatinine. I do not believe there is a good explanation for the rising creatinine. He does not appear to be obstructive though we will wait for the ultrasound. We have previously believe this was due to his
chemotherapy and prerenal state with low blood pressures. However he has completed his chemotherapy and is now on midodrine with stable blood pressures overall. We discussed the possibility of kidney biopsy for the possibility of true diagnosis.
He does have a solitary kidney and so there will be some additional risk though the risk may be outweighed by the benefit of information. This may be considered later this week.
We will check serologies at this time
[2024-10-17 15:42] LABS: Urine Sodium 93 mmol/L (30-90)
[2024-10-17 16:09] LABS: Urine Protein 59 mg/dl
--- NOTE | 2024-10-17 16:18 | CM ---
Patient is active with [facility]. CM updated Diya with plan for admission.
[2024-10-17 17:14] LABS: Body Fluid for Eosinophils No Eosinophils seen
[2024-10-17 17:17] LABS: Protein/creatinine Ratio 0.8
[2024-10-17 18:53] LABS: Vancomycin Random 6.4 ug/ml
[2024-10-17 18:56] LABS: Complement C3 100 mg/dl (88-165)
--- NOTE | 2024-10-17 19:59 | PTCARENOTE ---
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
--- NOTE | 2024-10-17 21:00 | PTCARENOTE ---
Patient received from ED via stretcher. Patient walked with stand by assist from stretcher to bed. Coburn intact with stat lock. Patient AAOx4, able to make needs known. IV flushed and patent. Assessment documented in flowsheet.
[2024-10-17] MEDS: HEPARIN 5000 UNITS SC (21:21)
[2024-10-17] MEDS: PROTONIX 40 MG PO (21:22)
[2024-10-17] MEDS: DESYREL 100 MG PO (21:22)
[2024-10-17] MEDS: LIPITOR 20 MG PO (21:22)
[2024-10-17] MEDS: ProAmatine 5 MG PO (21:23)
--- NOTE | 2024-10-18 02:46 | DOWNTIME ---
There was a [employer] Director [employer] Downtime on 10/18/2024 from 0100 to 10/18/2023 at 0235 . Downtime documentation of patient's care, including medication administrations, has been reconciled in the electronic record per guidelines. Refer to the
patient's paper chart under the miscellaneous tab to see printed paper medication records and downtime forms.
[2024-10-18] MEDS: SYNTHROID 75 MCG PO (05:00)
[2024-10-18 07:05] VITALS: BP 100/56
[2024-10-18 07:59] LABS: Hematocrit 24.3 % (39.0-52.0); Hemoglobin 8.2 g/dL (13.0-18.0); Mean Corp Hgb Conc. 33.7 g/dL (33.0-37.0); Mean Corpuscular Hgb 32.2 pg (27.0-31.0); Mean Corpuscular Volume 95.3 fL (80.0-94.0); Mean Platelet Volume 9.9 fL (7.4-10.4); Platelet Count 190 10^3/uL (130-400); Red Blood Cell Count 2.55 10^6/uL (4.70-6.10)
[2024-10-18 09:05] LABS: Blood Urea Nitrogen 50 mg/dl (9-20); Calcium 7.9 mg/dl (8.4-10.2); Carbon Dioxide 16 mmol/L (22-30); Chloride 109 mmol/L (98-107); Estimated Creatinine Clearance 10 ml/min; Glucose 95 mg/dl (70-99); Potassium 4.8 mmol/L (3.5-5.1); Sodium 137 mmol/L (135-145); eGFR 10.83
[2024-10-18] MEDS: ProAmatine 5 MG PO ×3 (09:16→17:18)
[2024-10-18] MEDS: TRICOR 145 MG PO (09:16)
[2024-10-18] MEDS: HEPARIN 5000 UNITS SC ×2 (09:16→20:18)
[2024-10-18] MEDS: PROSCAR 5 MG PO (09:16)
[2024-10-18] MEDS: ASPIR LOW (ENTERIC COATED) 81 MG PO (09:16)
[2024-10-18] MEDS: PROTONIX 40 MG PO ×2 (09:16→20:14)
[2024-10-18] MEDS: FLOMAX 0.8 MG PO (11:23)
--- NOTE | 2024-10-18 11:51 | W.PN.NEPH.PH ---
Today's Communication / Plan
-
Continue IV fluid/considering biopsy pending further serology
Assessment/Plan
-
Assessment
Acute kidney injury
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
Metastatic recurrent renal cell cancer
Esophageal stricture
Hypotension controlled with midodrine
BPH chronic Coburn
Hyperlipidemia
Anemia
Metabolic acidosis
Plan
Follow BMP
Continue midodrine
echocardiogram= EF 60 to 65% estimated pulmonary artery pressure 15-12 normal diastolic function
Maintain chronic Coburn catheter
Serologies ordered pending= to date :normal complement level
Renal ultrasound no obstruction
Urinalysis gross hematuria but no red blood cells
Protein creatinine ratio 0.8
FeNa 4.7%
Continue IV fluids for now.
No acute need for dialysis at this time.
Patient aware of the risk if we proceed with kidney biopsy with solitary kidney.
Will decide tomorrow once further serologies return as to whether we are going to proceed with biopsy
-
-
Date of Service: October 18, 2024
CC / HPI / ROS
-
Chief Complaint:
Abnormal lab
History of Present Illness:
Acute on chronic kidney disease creatinine up to 5 from 3 on discharge last.
Receiving chemotherapy for renal cell carcinoma
Review of Systems:.
Coburn catheter in place
No chest pain or shortness of breath.
Nonoliguric
Labs
-
Labs:
WBC 4.0 10^3/uL (4.8-10.8) L 10/18/24 06:48
RBC 2.55 10^6/uL (4.70-6.10) L 10/18/24 06:48
Hgb 8.2 g/dL (13.0-18.0) L 10/18/24 06:48
Hct 24.3 % (39.0-52.0) L 10/18/24 06:48
Plt Count 190 10^3/uL (130-400) 10/18/24 06:48
Sodium 137 mmol/L (135-145) 10/18/24 06:48
Potassium 4.8 mmol/L (3.5-5.1) 10/18/24 06:48
Chloride 109 mmol/L (98-107) H 10/18/24 06:48
Carbon Dioxide 16 mmol/L (22-30) L 10/18/24 06:48
BUN 50 mg/dl (9-20) H 10/18/24 06:48
Creatinine 5.0 mg/dL (0.7-1.3) H* 10/18/24 06:48
eGFR 10.83 10/18/24 06:48
Glucose 95 mg/dl (70-99) 10/18/24 06:48
Calcium 7.9 mg/dl (8.4-10.2) L 10/18/24 06:48
Albumin 3.4 g/dl (3.5-5.0) L 10/17/24 12:34
Physical Exam
-
Vital Signs:
Vital Signs
Temp Pulse Resp BP Pulse Ox
97.4 F 67 20 101/50 100
10/18/24 07:05 10/18/24 11:23 10/18/24 07:05 10/18/24 11:23 10/18/24 10:12
Cardiovascular:: Regular rate and rhythm
Respiratory:: Bilateral: CTA
Lung Excursion:: Normal
Abdomen:: Nontender and Soft
Extremity Edema:: None: Bilateral:
Coburn Catheter: Yes
--- NOTE | 2024-10-18 12:01 | W.PN.UPDATE ---
Update Note
Progress Note Update
Discontinued aspirin in the event we decide to do kidney biopsy
--- NOTE | 2024-10-18 12:06 | W.PN.HOSP.TC ---
Today's Communication/Plan
-
follow workup by Nephrology; continue IVF. May need renal biopsy
start Azactam for UTI (PCN allergy) follow culture
Assessment / Plan
Assessment / Plan
Assessment:
MONA on CKD stage 4
Acute metabolic acidosis
Hx of solitary kidney after L nephrectomy
- FeNA 4.7%
- Renal US without obstruction
- follow extended serological workup
- continue IVF
- Nephrology following
- possible renal biopsy pending outcome of serological workup
Recent E. Faecalis prostatitis
Gram negative UTI this hospitalization
- start Azactam, day 1 pending culture (PCN allergy)
Anemia of chronic disease
- Hemoglobin stable at 9.1
- no active bleeding
- continue to monitor
BPH
Chronic indwelling Coburn catheter
- due to be changed next week (last exchange was 09/25/24)
- continue dutasteride, tamsulosin
Esophageal stricture
Chronic dysphagia
History of GE junction stenosis
- Mechanical soft diet
- s/p EGD with esophageal dilatation on 09/27/24
Metastatic renal cell cancer status
- Known hepatic lesions
- His last immunotherapy was a month ago
- holding Cabometyx
Essential hypertension
- Norvasc continued with hold parameters
- Midodrine continued
Hyperlipidemia
- continue statin, fenofibrate
Hypothyroidism
- continue levothyroxine
DVT ppx: SC Heparin
Code: Full
Anticipated Discharge: > 48 hours
Subjective/Interval History
-
Date of Service: October 18, [address]; draining
no chest pain or SOB
Cr stable at 5.0
Objective Data
-
Labs:
Laboratory Results
10/18/24
06:48
WBC 4.0 L
Hgb 8.2 L
Hct 24.3 L
Plt Count 190
Sodium 137
Potassium 4.8
Chloride 109 H
Carbon Dioxide 16 L
BUN 50 H
Creatinine 5.0 H*
Glucose 95
Calcium 7.9 L
Vital Signs:
Vital Signs
Temp Pulse Resp BP Pulse Ox
97.4 F 67 20 101/50 100
10/18/24 07:05 10/18/24 11:23 10/18/24 07:05 10/18/24 11:23 10/18/24 10:12
I&O
10/17/24 10/18/24 10/19/24
06:59 06:59 06:59
Intake Total 0 / 0
Output Total 850 / 850
Balance -850 / -850
Physical Exam
-
General: No Apparent Distress
HEENT: Normocephalic and Atraumatic
Respiratory: Negative Wheezes
Cardiac: Regular Rhythm and S1/S2
GI: Soft and Nontender
Genito-urinary: Coburn
Musculoskeletal: No Edema
Neuro: AO x 3
Hematologic / Lymphatic: No Lymphadenopathy
Psych: Calm
Data Reviewed
-
Total Time Spent with Patient (in minutes): 42
Labs: Labs Reviewed by me
[2024-10-18] MEDS: NSS 1000 IV ×2 (12:30→20:08)
--- NOTE | 2024-10-18 13:20 | CM ---
Initial assessment completed with pts son via phone.
At baseline, pt lives at [facility]. He has a standard w/c, motorized w/c and a walker. All are used, depending upon the distance he needs to go, and/or how he is feeling.
Per son, Deven self propels himself around his apartment. He uses his RW for pivot transfers and short distances. Son also notes he has a power chair in his apartment as well. Pt has chronic driscoll; current with [facility] per son. CM
confirmed same with Diya at [facility].
Son notes that they are paying for the highest level of care within the facility; caregivers provide driscoll care, medication, showers, and ADLs.
PCP: Chivo King
PLAN: Return to [facility] with [facility] for RN, PT and OT.
[2024-10-18] MEDS: AZACTAM 1000 MG IV (14:17)
[2024-10-18] MEDS: DESENEX/MITRAZOL/ZEASORB 1 APPLIC TOPICAL ×2 (14:17→20:13)
[2024-10-18] MEDS: STERILE WATER FOR INJECTION 10 ML IV (14:24)
[2024-10-18 15:45] VITALS: BP 100/54
[2024-10-18] MEDS: LIPITOR 20 MG PO (20:15)
[2024-10-18] MEDS: DESYREL 100 MG PO (21:17)
[2024-10-18 23:06] VITALS: BP 100/58
[2024-10-19] MEDS: NSS 1000 IV ×2 (02:40→09:27)
[2024-10-19] MEDS: SYNTHROID 75 MCG PO (06:07)
[2024-10-19 07:43] LABS: Hemoglobin 8.2 g/dL (13.0-18.0); Mean Corp Hgb Conc. 32.8 g/dL (33.0-37.0); Mean Corpuscular Hgb 31.8 pg (27.0-31.0); Mean Corpuscular Volume 96.9 fL (80.0-94.0); Platelet Count 173 10^3/uL (130-400); Red Blood Cell Count 2.58 10^6/uL (4.70-6.10); White Blood Cell Count 3.8 10^3/uL (4.8-10.8)
[2024-10-19 08:00] VITALS: BP 98/50
[2024-10-19] MEDS: ProAmatine 5 MG PO ×3 (08:01→16:46)
[2024-10-19] MEDS: PROTONIX 40 MG PO ×2 (08:01→20:58)
[2024-10-19] MEDS: TRICOR 145 MG PO (08:01)
[2024-10-19] MEDS: DESENEX/MITRAZOL/ZEASORB 1 APPLIC TOPICAL ×2 (08:01→20:55)
[2024-10-19] MEDS: PROSCAR 5 MG PO (08:01)
[2024-10-19 08:02] LABS: Blood Urea Nitrogen 50 mg/dl (9-20); Calcium 7.3 mg/dl (8.4-10.2); Carbon Dioxide 14 mmol/L (22-30); Chloride 113 mmol/L (98-107); Estimated Creatinine Clearance 10 ml/min; Glucose 88 mg/dl (70-99); Potassium 4.7 mmol/L (3.5-5.1); Sodium 138 mmol/L (135-145); eGFR 11.66
--- NOTE | 2024-10-19 10:32 | W.PN.HOSP.TC ---
Today's Communication/Plan
-
Monitor vital signs see plan
Continue to monitor renal function
Consider bicarb drip if okay with nephrology
Monitor acidosis
Monitor hemoglobin
Maintain Coburn
Switch antibiotics to PO
Assessment / Plan
Assessment / Plan
Assessment:
MONA on CKD stage 4
Acute metabolic acidosis
Hx of solitary kidney after L nephrectomy
- FeNA 4.7%
- Renal US without obstruction
- follow extended serological workup
- continue IVF; consider switching to bicarb if okay with nephrology
- Nephrology following
- possible renal biopsy pending outcome of serological workup
Creatinine mildly improved to 4.7 today. Continue to monitor
Recent E. Faecalis prostatitis
Gram negative UTI this hospitalization
- started Azactam, pending culture (PCN allergy). Urine culture with Klebsiella sensitive to ciprofloxacin. Start p.o. antibiotics to complete course
Anemia of chronic disease
- Hemoglobin stable at 9.1
- no active bleeding
- continue to monitor
BPH
Chronic indwelling Coburn catheter
- due to be changed next week (last exchange was 09/25/24)
- continue dutasteride, tamsulosin
Esophageal stricture
Chronic dysphagia
History of GE junction stenosis
- Mechanical soft diet
- s/p EGD with esophageal dilatation on 09/27/24
Metastatic renal cell cancer status
- Known hepatic lesions
- His last immunotherapy was a month ago
- holding Cabometyx
Essential hypertension
- Norvasc continued with hold parameters
- Midodrine continued
Hyperlipidemia
- continue statin, fenofibrate
Hypothyroidism
- continue levothyroxine
DVT ppx: SC Heparin on hold per nephrology
Code: Full
General: No Apparent Distress
HEENT: Normocephalic and Atraumatic
Respiratory: Negative Wheezes
Cardiac: Regular Rhythm and S1/S2
GI: Soft and Nontender
Genito-urinary: Coburn
Musculoskeletal: No Edema
Neuro: AO x 3
Hematologic / Lymphatic: No Lymphadenopathy
Psych: Calm
Anticipated Discharge: > 48 hours
Subjective/Interval History
-
Date of Service: October 19, 2024
Denies pain
Objective Data
-
Labs:
Laboratory Results
10/19/24
07:08
WBC 3.8 L
Hgb 8.2 L
Hct 25.0 L
Plt Count 173
Sodium 138
Potassium 4.7
Chloride 113 H
Carbon Dioxide 14 L*
BUN 50 H
Creatinine 4.7 H*
Glucose 88
Calcium 7.3 L
Vital Signs:
Vital Signs
Temp Pulse Resp BP Pulse Ox
97.6 F 65 16 98/50 98
10/19/24 08:00 10/19/24 08:01 10/19/24 08:00 10/19/24 08:01 10/19/24 08:00
I&O
10/18/24 10/19/24 10/20/24
06:59 06:59 06:59
Intake Total 0 / 0 1180 / 1180
Output Total 850 / 850 775 / 775
Balance -850 / -850 405 / 405
[2024-10-19] MEDS: FLOMAX 0.8 MG PO (11:20)
[2024-10-19] MEDS: CIPRO 500 MG PO (11:20)
--- NOTE | 2024-10-19 13:42 | W.PN.NEPH.PH ---
Today's Communication / Plan
-
Discontinue normal saline. Start p.o. alkaline therapy
Assessment/Plan
-
Assessment
Acute kidney injury
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
Metastatic recurrent renal cell cancer
Esophageal stricture
Hypotension controlled with midodrine
BPH chronic Coburn
Hyperlipidemia
Anemia
Metabolic acidosis
Plan
Follow BMP
Continue midodrine
echocardiogram= EF 60 to 65% estimated pulmonary artery pressure 15-12 normal diastolic function
Maintain chronic Coburn catheter
Serologies ordered pending= to date :normal complement level
Renal ultrasound no obstruction
Urinalysis gross hematuria but no red blood cells
Protein creatinine ratio 0.8
FeNa 4.7%
Patient aware of the risk if we proceed with kidney biopsy with solitary kidney. With that said , his renal function is not improving so identifying with tissue sample for possible intervention would outweigh the risk.
No acute need for dialysis at this time.
Discontinued aspirin on 10/18 in the event we proceed with renal biopsy.
Developed a hyperchloremic metabolic acidosis from the IV fluids and a mild nongap acidosis from progressive renal decline.
I will discontinue the normal saline and put him on p.o. bicarbonate for now
Urine cultures growing Klebsiella= ciprofloxacin
-
-
Date of Service: October 19, 2024
CC / HPI / ROS
-
Chief Complaint:
Abnormal lab
History of Present Illness:
Acute on chronic kidney disease creatinine up to 5 from 3 on discharge last.
Receiving chemotherapy for renal cell carcinoma
Review of Systems:.
Coburn catheter in place
No chest pain or shortness of breath.
Nonoliguric
Labs
-
Labs:
WBC 3.8 10^3/uL (4.8-10.8) L 10/19/24 07:08
RBC 2.58 10^6/uL (4.70-6.10) L 10/19/24 07:08
Hgb 8.2 g/dL (13.0-18.0) L 10/19/24 07:08
Hct 25.0 % (39.0-52.0) L 10/19/24 07:08
Plt Count 173 10^3/uL (130-400) 10/19/24 07:08
Sodium 138 mmol/L (135-145) 10/19/24 07:08
Potassium 4.7 mmol/L (3.5-5.1) 10/19/24 07:08
Chloride 113 mmol/L (98-107) H 10/19/24 07:08
Carbon Dioxide 14 mmol/L (22-30) L* 10/19/24 07:08
BUN 50 mg/dl (9-20) H 10/19/24 07:08
Creatinine 4.7 mg/dL (0.7-1.3) H* 10/19/24 07:08
eGFR 11.66 10/19/24 07:08
Glucose 88 mg/dl (70-99) 10/19/24 07:08
Calcium 7.3 mg/dl (8.4-10.2) L 10/19/24 07:08
Albumin 3.4 g/dl (3.5-5.0) L 10/17/24 12:34
Physical Exam
-
Vital Signs:
Vital Signs
Temp Pulse Resp BP Pulse Ox
97.6 F 64 16 98/51 100
10/19/24 08:00 10/19/24 11:20 10/19/24 08:00 10/19/24 11:20 10/19/24 11:29
Cardiovascular:: Regular rate and rhythm
Respiratory:: Bilateral: CTA
Lung Excursion:: Normal
Abdomen:: Nontender and Soft
Extremity Edema:: None: Bilateral:
Coburn Catheter: Yes
[2024-10-19 15:07] VITALS: BP 101/55
[2024-10-19] MEDS: SODIUM BICARBONATE 1300 MG PO ×2 (15:22→21:02)
[2024-10-19] MEDS: LIPITOR 20 MG PO (20:58)
[2024-10-19] MEDS: DESYREL 100 MG PO (21:01)
[2024-10-19] MEDS: HEPARIN 5000 UNITS SC (21:02)
[2024-10-19 23:50] VITALS: BP 98/56
[2024-10-20 01:45] LABS: ANA, IgG Reflex to HEp-2 None Detected (None Detected)
[2024-10-20] MEDS: SYNTHROID 75 MCG PO (05:44)
[2024-10-20 07:20] VITALS: BP 99/54
[2024-10-20 07:56] LABS: Hematocrit 24.1 % (39.0-52.0); Hemoglobin 7.9 g/dL (13.0-18.0); Mean Corp Hgb Conc. 32.8 g/dL (33.0-37.0); Mean Corpuscular Hgb 32.1 pg (27.0-31.0); Mean Platelet Volume 9.7 fL (7.4-10.4); Platelet Count 152 10^3/uL (130-400); Red Blood Cell Count 2.46 10^6/uL (4.70-6.10); Red Cell Dist. Width 16.1 % (11.5-14.5); White Blood Cell Count 3.6 10^3/uL (4.8-10.8)
[2024-10-20] MEDS: DESENEX/MITRAZOL/ZEASORB 1 APPLIC TOPICAL ×2 (08:12→21:08)
[2024-10-20] MEDS: PROTONIX 40 MG PO ×2 (08:13→21:07)
[2024-10-20] MEDS: PROSCAR 5 MG PO (08:13)
[2024-10-20] MEDS: TRICOR 145 MG PO (08:13)
[2024-10-20] MEDS: ProAmatine 5 MG PO ×3 (08:13→17:44)
[2024-10-20] MEDS: SODIUM BICARBONATE 1300 MG PO ×3 (08:13→21:07)
[2024-10-20 08:33] LABS: Blood Urea Nitrogen 49 mg/dl (9-20); Calcium 7.4 mg/dl (8.4-10.2); Carbon Dioxide 17 mmol/L (22-30); Chloride 114 mmol/L (98-107); Estimated Creatinine Clearance 10 ml/min; Glucose 98 mg/dl (70-99); Potassium 4.6 mmol/L (3.5-5.1); Sodium 139 mmol/L (135-145); eGFR 11.37
--- NOTE | 2024-10-20 09:01 | PN.CDI ---
CDI
- -
CDI:
Physician Documentation Request
Admit Date: 10/17/24 13:58
Dear Doctor Ervin,
Please review the following and provide your response in the progress notes.
Clinical Indicators:
- 10/19 PN 'Gram negative UTI this hospitalization'
- 'Chronic indwelling Coburn catheter'
- UC with Klebsiella pneumoniae
Please clarify the relationship between these conditions:
Yes, _UTI__ is related to/associated with/due to _indwelling Coburn catheter__.
No, _UTI__ is not related to/associated with/due to _indwelling Coburn catheter__ but it is due to ___. (Please specify)
Unable to determine
Use of terms such as suspected, likely, concern for, or probable (associated with a specific diagnosis that is being evaluated, monitored, or treated as if it exists) are acceptable and can be coded in the inpatient setting, when documented at the
time of discharge.
Thank you,
Heidi Chairez RN
CDI Specialist
Please use your independent medical judgment in providing your response.
[2024-10-20] MEDS: HEPARIN 5000 UNITS SC ×2 (10:30→21:07)
--- NOTE | 2024-10-20 10:33 | W.PN.HOSP.TC ---
Today's Communication/Plan
-
Monitor vital signs see plan
Monitor renal function
Continue to monitor creatinine
Monitor hemoglobin
Continue antibiotics
Continue with bicarb
Assessment / Plan
Assessment / Plan
Assessment:
MONA on CKD stage 4
Acute metabolic acidosis
Hx of solitary kidney after L nephrectomy
- FeNA 4.7%
- Renal US without obstruction
- follow extended serological workup
Continue with p.o. carb per renal
- Nephrology following
- possible renal biopsy pending outcome of serological workup
Creatinine 4.8 today;. Continue to monitor
Recent E. Faecalis prostatitis
Gram negative UTI this hospitalization;Suspect UTI is secondary to chronic indwelling Coburn cath. Complicated UTI
- Urine culture with Klebsiella sensitive to ciprofloxacin. Started p.o. antibiotics to complete course
Anemia of chronic disease
-Drop in hemoglobin today is likely hemodilution as patient was on fluids until yesterday.Continue to monitor
- no active bleeding
- continue to monitor
BPH
Chronic indwelling Coburn catheter
- continue dutasteride, tamsulosin
Esophageal stricture
Chronic dysphagia
History of GE junction stenosis
- Mechanical soft diet
- s/p EGD with esophageal dilatation on 09/27/24
Metastatic renal cell cancer status
- Known hepatic lesions
- His last immunotherapy was a month ago
- holding Cabometyx
Essential hypertension
- Norvasc continued with hold parameters
- Midodrine continued
Hyperlipidemia
- continue statin, fenofibrate
Hypothyroidism
- continue levothyroxine
DVT ppx: SC Heparin on hold per nephrology
Code: Full
General: No Apparent Distress
HEENT: Normocephalic and Atraumatic
Respiratory: Negative Wheezes
Cardiac: Regular Rhythm and S1/S2
GI: Soft and Nontender
Genito-urinary: Coburn
Musculoskeletal: No Edema
Neuro: AO x 3
Psych: Calm
Anticipated Discharge: > 48 hours
Subjective/Interval History
-
Date of Service: October 20, 2024
Denies pain
Objective Data
-
Labs:
Laboratory Results
10/20/24
07:34
WBC 3.6 L
Hgb 7.9 L
Hct 24.1 L
Plt Count 152
Sodium 139
Potassium 4.6
Chloride 114 H
Carbon Dioxide 17 L
BUN 49 H
Creatinine 4.8 H*
Glucose 98
Calcium 7.4 L
Vital Signs:
Vital Signs
Temp Pulse Resp BP Pulse Ox
98.0 F 68 1 99/54 99
10/20/24 07:20 10/20/24 08:13 10/20/24 07:20 10/20/24 08:13 10/20/24 07:20
I&O
10/19/24 10/20/24 10/21/24
06:59 06:59 06:59
Intake Total 1180 / 1180 2160 / 2160
Output Total 775 / 775 650 / 650
Balance 405 / 405 1510 / 1510
--- NOTE | 2024-10-20 11:31 | W.PN.NEPH.PH ---
Today's Communication / Plan
-
biopsy
Assessment/Plan
-
Assessment
Acute kidney injury
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
Metastatic recurrent renal cell cancer
Esophageal stricture
Hypotension controlled with midodrine
BPH chronic Coburn
Hyperlipidemia
Anemia
Metabolic acidosis
Plan
Follow BMP
Continue midodrine
cause of hypotension uncertain
Maintain chronic Coburn catheter
Serologies ordered pending
Renal ultrasound no obstruction
discussed with IR. off ASA at least 3 days (last dose 10/18). would plan for renal biopsy wednesday. Otherwise, OP biopsy is 10/31...first available
-
-
Date of Service: October 20, 2024
CC / HPI / ROS
-
Chief Complaint:
Abnormal lab
History of Present Illness:
MONA/Cr holding 4.8
BP low stable on midodrine
Hgb lower at 7.9
acidosis persists on bicarb
Review of Systems:.
Coburn catheter in place
No chest pain or shortness of breath.
Nonoliguric
Labs
-
Labs:
WBC 3.6 10^3/uL (4.8-10.8) L 10/20/24 07:34
RBC 2.46 10^6/uL (4.70-6.10) L 10/20/24 07:34
Hgb 7.9 g/dL (13.0-18.0) L 10/20/24 07:34
Hct 24.1 % (39.0-52.0) L 10/20/24 07:34
Plt Count 152 10^3/uL (130-400) 10/20/24 07:34
Sodium 139 mmol/L (135-145) 10/20/24 07:34
Potassium 4.6 mmol/L (3.5-5.1) 10/20/24 07:34
Chloride 114 mmol/L (98-107) H 10/20/24 07:34
Carbon Dioxide 17 mmol/L (22-30) L 10/20/24 07:34
BUN 49 mg/dl (9-20) H 10/20/24 07:34
Creatinine 4.8 mg/dL (0.7-1.3) H* 10/20/24 07:34
eGFR 11.37 10/20/24 07:34
Glucose 98 mg/dl (70-99) 10/20/24 07:34
Calcium 7.4 mg/dl (8.4-10.2) L 10/20/24 07:34
Albumin 3.4 g/dl (3.5-5.0) L 10/17/24 12:34
Physical Exam
-
Vital Signs:
Vital Signs
Temp Pulse Resp BP Pulse Ox
98.0 F 68 1 99/54 99
10/20/24 07:20 10/20/24 08:13 10/20/24 07:20 10/20/24 08:13 10/20/24 07:20
Cardiovascular:: Regular rate and rhythm
Respiratory:: Bilateral: CTA
Lung Excursion:: Normal
Abdomen:: Nontender and Soft
Bowel Sounds:: Normal
Extremity Edema:: None: Bilateral:
[2024-10-20 13:18] VITALS: BP 119/64
[2024-10-20] MEDS: CIPRO 500 MG PO (13:23)
[2024-10-20] MEDS: FLOMAX 0.8 MG PO (13:23)
[2024-10-20 13:29] LABS: 24 Hour Urine Total Volume Random mL; Urine Collection Length Random hr; Urine Free Kappa Light Chains 167.31 mg/L (0.00-32.90); Urine Free Lambda Light Chains 27.62 mg/L (0.00-3.79)
[2024-10-20 15:05] VITALS: BP 112/83
[2024-10-20 16:10] LABS: Myeloperoxidase Antibody 0 AU/mL (0-19); Serine Protease-3, IgG 0 AU/mL (0-19)
--- NOTE | 2024-10-20 17:04 | CM ---
Call received from pts son who is concerned about oncology involvement. Dr. Hunter, [facility]; appointment on 10/24/2024.
TT to Dr. Mueller to make him aware of same.
[2024-10-20] MEDS: LIPITOR 20 MG PO (21:07)
[2024-10-20] MEDS: TUMS CHEWABLE TABLET 200 MG PO (21:07)
[2024-10-20] MEDS: DESYREL 100 MG PO (21:08)
[2024-10-20 23:55] VITALS: BP 102/58
[2024-10-21 02:38] LABS: Albumin 2.98 g/dL (3.75-5.01); Alpha 1 Globulin 0.33 g/dL (0.19-0.46); Alpha 2 Globulin 0.67 g/dL (0.48-1.05); SPEP IFE Reflex Not Done; Total Protein-Electrophoresis 5.5 g/dL (6.3-8.2)
[2024-10-21] MEDS: SYNTHROID 75 MCG PO (05:20)
[2024-10-21 07:10] VITALS: BP 110/63
--- NOTE | 2024-10-21 07:11 | W.PN.HOSP.TC ---
Today's Communication/Plan
-
Tums prn indigestion
monitor H&H renal function
cont abx
midodrine with holding parameters
PT/OT
Assessment / Plan
Assessment / Plan
Physical Exam
General: No Apparent Distress, appears comfortable at this time
HEENT: Normocephalic and Atraumatic
Respiratory: Negative Wheezes
Cardiac: Regular Rhythm and S1/S2
GI: Soft and Nontender
Genito-urinary: Coburn
Musculoskeletal: No Edema
Neuro: AO x 3
Psych: Calm
Assessment: 84M RCC Lt Nephrectomy HTN HLD BPH Hypothyroidism GERD Esophageal stricture CKD IV Liver Mets
MONA on CKD stage 4
Acute metabolic acidosis
Hx of solitary kidney after L nephrectomy
- FeNA 4.7%
- Renal US without obstruction
- follow extended serological workup
Continue with p.o. bicarb per renal
- Nephrology eval appreciated planned for IR bx Mon, home ASA on hold for procedure
-Creatinine baseline 3.0 persistently elevated this hospitalization initial 5.0 trended down to 4.8 4.7
Recent E. Faecalis prostatitis
Gram negative UTI this hospitalization;Suspect UTI is secondary to chronic indwelling Coburn cath. Complicated UTI
- Urine culture with Klebsiella sensitive to ciprofloxacin.
- cont Cipro 500 mg daily renally dosed started 10/20/24 planned for 5 days treatment
Anemia of chronic disease
Anemia 2/2 CKD
-monitor H&H, stable at this time
BPH
Chronic indwelling Coburn catheter
- continue dutasteride, tamsulosin
Esophageal stricture
Chronic dysphagia
History of GE junction stenosis
- Mechanical soft diet
- s/p EGD with esophageal dilatation on 09/27/24
Metastatic renal cell cancer status
- Known hepatic lesions
- His last immunotherapy was a month ago
- holding Cabometyx
Hx HTN
Hx Hypotension
- Home Midodrine continued
- Has not required home amlodipine consider dc on discharge
Hyperlipidemia
- continue statin, fenofibrate
Hypothyroidism
- continue levothyroxine
Indigestion
-Tums prn
DVT ppx: SC Heparin (hold Wednesday Morning for IR bx)
Code: Full
I spent a total of 40 minutes with the patient or on the floor. More than 50% of this time involved counseling and coordination of care.
Anticipated Discharge: 24 - 48 hours
Subjective/Interval History
-
Date of Service: October 21, 2024
no acute distress sitting up comfortably in chair. overall reports feeling well. Denies new acute issues at this time.
Objective Data
-
Labs:
Laboratory Results
10/21/24
06:00
WBC Pending
Hgb Pending
Hct Pending
Plt Count Pending
Sodium Pending
Potassium Pending
Chloride Pending
Carbon Dioxide Pending
BUN Pending
Creatinine Pending
Glucose Pending
Calcium Pending
Vital Signs:
Vital Signs
Temp Pulse Resp BP Pulse Ox
97.3 F 70 18 102/58 98
10/20/24 23:55 10/20/24 23:55 10/20/24 23:55 10/20/24 23:55 10/20/24 23:55
I&O
10/20/24 10/21/24 10/22/24
06:59 06:59 06:59
Intake Total 2160 / 2160 180 / 180
Output Total 650 / 650 1400 / 1400
Balance 1510 / 1510 -1220 / -1220
[2024-10-21] MEDS: TRICOR 145 MG PO (08:48)
[2024-10-21] MEDS: SODIUM BICARBONATE 1300 MG PO ×3 (08:48→20:29)
[2024-10-21] MEDS: PROTONIX 40 MG PO ×2 (08:48→20:29)
[2024-10-21] MEDS: PROSCAR 5 MG PO (08:49)
[2024-10-21] MEDS: ProAmatine 5 MG PO ×3 (08:49→16:13)
[2024-10-21] MEDS: HEPARIN 5000 UNITS SC ×2 (08:49→20:29)
[2024-10-21 08:51] LABS: Hematocrit 24.6 % (39.0-52.0); Hemoglobin 8.2 g/dL (13.0-18.0); Mean Corp Hgb Conc. 33.3 g/dL (33.0-37.0); Mean Corpuscular Volume 96.1 fL (80.0-94.0); Mean Platelet Volume 9.9 fL (7.4-10.4); Platelet Count 153 10^3/uL (130-400); Red Blood Cell Count 2.56 10^6/uL (4.70-6.10); White Blood Cell Count 4.2 10^3/uL (4.8-10.8)
[2024-10-21] MEDS: DESENEX/MITRAZOL/ZEASORB 1 APPLIC TOPICAL ×2 (08:51→20:26)
[2024-10-21 09:25] LABS: Estimated Creatinine Clearance 10 ml/min; eGFR 11.66
[2024-10-21 09:26] LABS: Blood Urea Nitrogen 49 mg/dl (9-20); Calcium 7.7 mg/dl (8.4-10.2); Carbon Dioxide 20 mmol/L (22-30); Chloride 114 mmol/L (98-107); Glucose 96 mg/dl (70-99); Potassium 4.5 mmol/L (3.5-5.1); Sodium 140 mmol/L (135-145)
[2024-10-21 12:44] VITALS: BP 107/59; PULSE 66
[2024-10-21 12:49] VITALS: BP 107/59; PULSE 66
[2024-10-21] MEDS: FLOMAX 0.8 MG PO (13:00)
[2024-10-21] MEDS: CIPRO 500 MG PO (13:00)
--- NOTE | 2024-10-21 14:23 | W.PN.NEPH.PH ---
Today's Communication / Plan
-
bx wednesday
Assessment/Plan
-
Assessment
Acute kidney injury
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
Metastatic recurrent renal cell cancer
Esophageal stricture
Hypotension controlled with midodrine
BPH chronic Coburn
Hyperlipidemia
Anemia
Metabolic acidosis
Plan
Follow BMP
Continue midodrine
cause of hypotension uncertain
Maintain chronic Coburn catheter
Serologies ordered thus far negative
discussed with IR. off ASA at least 3 days (last dose 10/18). would plan for renal biopsy wednesday. Otherwise, OP biopsy is 10/31...first available
-
-
Date of Service: October 21, 2024
CC / HPI / ROS
-
Chief Complaint:
Abnormal lab
History of Present Illness:
MONA/Cr holding 4.7
BP low stable on midodrine
Hgb up to 8.2
acidosis persists on bicarb
Review of Systems:.
Coburn catheter in place
No chest pain or shortness of breath.
Nonoliguric
Labs
-
Labs:
WBC 4.2 10^3/uL (4.8-10.8) L 10/21/24 08:23
RBC 2.56 10^6/uL (4.70-6.10) L 10/21/24 08:23
Hgb 8.2 g/dL (13.0-18.0) L 10/21/24 08:23
Hct 24.6 % (39.0-52.0) L 10/21/24 08:23
Plt Count 153 10^3/uL (130-400) 10/21/24 08:23
Sodium 140 mmol/L (135-145) 10/21/24 08:23
Potassium 4.5 mmol/L (3.5-5.1) 10/21/24 08:23
Chloride 114 mmol/L (98-107) H 10/21/24 08:23
Carbon Dioxide 20 mmol/L (22-30) L 10/21/24 08:23
BUN 49 mg/dl (9-20) H 10/21/24 08:23
Creatinine 4.7 mg/dL (0.7-1.3) H* 10/21/24 08:23
eGFR 11.66 10/21/24 08:23
Glucose 96 mg/dl (70-99) 10/21/24 08:23
Calcium 7.7 mg/dl (8.4-10.2) L 10/21/24 08:23
Albumin 3.4 g/dl (3.5-5.0) L 10/17/24 12:34
Physical Exam
-
Vital Signs:
Vital Signs
Temp Pulse Resp BP Pulse Ox
97.7 F 67 16 110/63 97
10/21/24 07:10 10/21/24 07:10 10/21/24 07:10 10/21/24 07:10 10/21/24 07:10
Cardiovascular:: Regular rate and rhythm
Respiratory:: Bilateral: Coarse
Lung Excursion:: Normal
Abdomen:: Nontender and Soft
Bowel Sounds:: Normal
Extremity Edema:: None: Bilateral:
[2024-10-21 15:04] VITALS: BP 123/72
[2024-10-21] MEDS: TUMS CHEWABLE TABLET 200 MG PO ×2 (17:26→22:43)
[2024-10-21] MEDS: LIPITOR 20 MG PO (20:29)
[2024-10-21] MEDS: DESYREL 100 MG PO (22:44)
[2024-10-21 23:55] VITALS: BP 112/59
[2024-10-22] MEDS: SYNTHROID 75 MCG PO (05:58)
[2024-10-22 07:15] VITALS: BP 115/60
--- NOTE | 2024-10-22 07:20 | W.PN.HOSP.TC ---
Today's Communication/Plan
-
Calcium supplementation
Follow up Vit D lvl
Npo after midnight for IR kidney bx
hold Mon Morning Hep Subq in preparation for bx
cont abx
Assessment / Plan
Assessment / Plan
Physical Exam
General: No Apparent Distress, appears comfortable at this time
HEENT: Normocephalic and Atraumatic
Respiratory: Negative Wheezes
Cardiac: Regular Rhythm and S1/S2
GI: Soft and Nontender
Genito-urinary: Coburn
Musculoskeletal: No Edema
Neuro: AO x 3
Psych: Calm
Assessment: 84M RCC Lt Nephrectomy HTN HLD BPH Hypothyroidism GERD Esophageal stricture CKD IV Liver Mets
MONA on CKD stage 4
Acute metabolic acidosis
Hx of solitary kidney after L nephrectomy
- FeNA 4.7%
- Renal US without obstruction
- follow extended serological workup
Continue with p.o. bicarb per renal
- Nephrology eval appreciated planned for IR bx Mon, home ASA on hold for procedure
-Creatinine baseline 3.0 persistently elevated this hospitalization initial 5.0 trended down to 4.8 4.7
Recent E. Faecalis prostatitis
Gram negative UTI this hospitalization;Suspect UTI is secondary to chronic indwelling Coburn cath. Complicated UTI
- Urine culture with Klebsiella sensitive to ciprofloxacin.
- cont Cipro 500 mg daily renally dosed started 10/20/24 planned for 5 days treatment
Anemia of chronic disease
Anemia 2/2 CKD
-monitor H&H, stable at this time
BPH
Chronic indwelling Coburn catheter
- continue dutasteride, tamsulosin
Esophageal stricture
Chronic dysphagia
History of GE junction stenosis
- Mechanical soft diet
- s/p EGD with esophageal dilatation on 09/27/24
Metastatic renal cell cancer status
- Known hepatic lesions
- His last immunotherapy was a month ago
- holding Cabometyx
Hx HTN
Hx Hypotension
- Home Midodrine continued
- Has not required home amlodipine consider dc on discharge
Hyperlipidemia
- continue statin, fenofibrate
Hypothyroidism
- continue levothyroxine
Hypocalcemia
-monitor and replete as necessary
-follow up Vit D 25 hydroxy level
Indigestion
-Tums prn
DVT ppx: SC Heparin (hold Wednesday Morning for IR bx)
Code: Full
I spent a total of 40 minutes with the patient or on the floor. More than 50% of this time involved counseling and coordination of care.
Anticipated Discharge: 24 - 48 hours
Subjective/Interval History
-
Date of Service: October 22, 2024
No acute distress. overall reports feeling well. Denies new acute issues at this time.
Objective Data
-
Vital Signs:
Vital Signs
Temp Pulse Resp BP Pulse Ox
97.6 F 68 18 112/59 100
10/21/24 23:55 10/21/24 23:55 10/21/24 23:55 10/21/24 23:55 10/21/24 23:55
I&O
10/21/24 10/22/24 10/23/24
06:59 06:59 06:59
Intake Total 180 / 180 1320 / 1320
Output Total 1400 / 1400 1125 / 1125
Balance -1220 / -1220 195 / 195
[2024-10-22] MEDS: HEPARIN 5000 UNITS SC ×2 (08:25→20:51)
[2024-10-22] MEDS: PROSCAR 5 MG PO (08:26)
[2024-10-22] MEDS: PROTONIX 40 MG PO ×2 (08:26→20:53)
[2024-10-22] MEDS: SODIUM BICARBONATE 1300 MG PO ×3 (08:26→20:52)
[2024-10-22] MEDS: ProAmatine 5 MG PO ×2 (08:26→12:47)
[2024-10-22] MEDS: DESENEX/MITRAZOL/ZEASORB 1 APPLIC TOPICAL ×2 (08:26→20:51)
[2024-10-22] MEDS: TRICOR 145 MG PO (08:26)
[2024-10-22] MEDS: CALCIUM GLUCONATE 100 IV (08:39)
--- NOTE | 2024-10-22 12:40 | W.PN.NEPH.PH ---
Today's Communication / Plan
-
Biopsy
Assessment/Plan
-
Assessment
Acute kidney injury
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
Metastatic recurrent renal cell cancer
Esophageal stricture
Hypotension controlled with midodrine
BPH chronic Coburn
Hyperlipidemia
Anemia
Metabolic acidosis
Plan
Follow BMP
Continue midodrine
cause of hypotension uncertain
Maintain chronic Coburn catheter
Serologies negative
discussed with IR. off ASA at least 3 days (last dose 10/18). would plan for renal biopsy wednesday. Otherwise, OP biopsy is 10/31...first available
-
-
Date of Service: October 22, 2024
CC / HPI / ROS
-
Chief Complaint:
Abnormal lab
History of Present Illness:
MONA/Cr holding 4.7 yesterday
BP low stable on midodrine
Hgb up to 8.2
acidosis persists on bicarb
Review of Systems:.
Coburn catheter in place
No chest pain or shortness of breath.
Nonoliguric
Labs
-
Labs:
WBC 4.2 10^3/uL (4.8-10.8) L 10/21/24 08:23
RBC 2.56 10^6/uL (4.70-6.10) L 10/21/24 08:23
Hgb 8.2 g/dL (13.0-18.0) L 10/21/24 08:23
Hct 24.6 % (39.0-52.0) L 10/21/24 08:23
Plt Count 153 10^3/uL (130-400) 10/21/24 08:23
Sodium 140 mmol/L (135-145) 10/21/24 08:23
Potassium 4.5 mmol/L (3.5-5.1) 10/21/24 08:23
Chloride 114 mmol/L (98-107) H 10/21/24 08:23
Carbon Dioxide 20 mmol/L (22-30) L 10/21/24 08:23
BUN 49 mg/dl (9-20) H 10/21/24 08:23
Creatinine 4.7 mg/dL (0.7-1.3) H* 10/21/24 08:23
eGFR 11.66 10/21/24 08:23
Glucose 96 mg/dl (70-99) 10/21/24 08:23
Calcium 7.7 mg/dl (8.4-10.2) L 10/21/24 08:23
Albumin 3.4 g/dl (3.5-5.0) L 10/17/24 12:34
Physical Exam
-
Vital Signs:
Vital Signs
Temp Pulse Resp BP Pulse Ox
97.9 F 67 16 115/60 100
10/22/24 07:15 10/22/24 07:15 10/22/24 07:15 10/22/24 07:15 10/22/24 07:15
Cardiovascular:: Regular rate and rhythm
Respiratory:: Bilateral: CTA
Lung Excursion:: Normal
Abdomen:: Nontender and Soft
Bowel Sounds:: Normal
Extremity Edema:: None: Bilateral:
[2024-10-22] MEDS: CIPRO 500 MG PO (12:47)
[2024-10-22] MEDS: FLOMAX 0.8 MG PO (12:47)
[2024-10-22 15:10] VITALS: BP 107/58
[2024-10-22] MEDS: ProAmatine PO ×2 (16:06→19:11)
[2024-10-22] MEDS: TUMS CHEWABLE TABLET 200 MG PO (20:25)
[2024-10-22] MEDS: DESYREL 100 MG PO (20:52)
[2024-10-22] MEDS: LIPITOR 20 MG PO (20:53)
[2024-10-22 23:17] VITALS: BP 108/74
[2024-10-22] MEDS: ZOFRAN 4 MG IV (23:47)
[2024-10-23] VITALS (16 sets, daily range): BP systolic 68–137; BP diastolic 52–71
[2024-10-23] MEDS: SYNTHROID 75 MCG PO (05:28)
[2024-10-23 06:43] LABS: % Basophils 1.2 % (0-2); % Eosinophils 1.6 % (0-6); % Immature Granulocytes 0.6 % (0-0.5); % Lymphocytes 10.2 % (20.5-51.1); % Monocytes 7.8 % (1.7-9.3); % Neutrophils 78.6 % (42.2-75.2); Absolute Eosinophils 0.1 10^3/uL (0-0.7); Absolute Lymphocytes 0.3 10^3/uL (1.2-3.4); Absolute Monocytes 0.3 10^3/uL (0.1-0.6); Absolute Neutrophils 2.5 10^3/uL (1.4-6.5); Hematocrit 26.5 % (39.0-52.0); Hemoglobin 8.9 g/dL (13.0-18.0); Mean Corp Hgb Conc. 33.6 g/dL (33.0-37.0); Mean Corpuscular Hgb 32.4 pg (27.0-31.0); Mean Corpuscular Volume 96.4 fL (80.0-94.0); Mean Platelet Volume 10.3 fL (7.4-10.4); Nucleated Red Blood Cells % 0 % (-); Platelet Count 145 10^3/uL (130-400); Red Blood Cell Count 2.75 10^6/uL (4.70-6.10); White Blood Cell Count 3.2 10^3/uL (4.8-10.8)
[2024-10-23 06:46] LABS: INR 1.38; PT 17.3 Sec (11.4-14.6)
[2024-10-23 08:25] LABS: Blood Urea Nitrogen 48 mg/dl (9-20); Calcium 8.7 mg/dl (8.4-10.2); Carbon Dioxide 19 mmol/L (22-30); Chloride 111 mmol/L (98-107); Estimated Creatinine Clearance 11 ml/min; Glucose 109 mg/dl (70-99); Potassium 4.4 mmol/L (3.5-5.1); Sodium 139 mmol/L (135-145); eGFR 12.28
[2024-10-23 09:15] LABS: Vitamin D, 25-OH*** 55.9 ng/mL (30-80)
--- NOTE | 2024-10-23 11:06 | W.PN.NEPH.PH ---
Today's Communication / Plan
-
For renal biopsy today
Postbiopsy hemoglobin
Creatinine stable at 4.5
Assessment/Plan
-
Assessment
Acute kidney injury
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
Metastatic recurrent renal cell cancer
Esophageal stricture
Hypotension controlled with midodrine
BPH chronic Driscoll
Hyperlipidemia
Anemia
Metabolic acidosis
Plan
Follow BMP ,creatinine stable at 4.5,non oliguric via driscoll
Continue midodrine for bp control
cause of hypotension uncertain
Maintain chronic Driscoll catheter
Serologies negative
Maintain sodium bicarbonate for metabolic acidosis
discussed with IR. off ASA at least 3 days (last dose 10/18). would plan for renal biopsy today . Otherwise, OP biopsy is 10/31...first available
follow h/h post biopsy
-
-
Date of Service: October 23, 2024
CC / HPI / ROS
-
Chief Complaint:
Abnormal lab
History of Present Illness:
MONA/Cr holding 4.5
BP low stable on midodrine
Hgb up to 8.9
acidosis persists on bicarb
Review of Systems:.
Driscoll catheter in place
No chest pain or shortness of breath.
Nonoliguric
Labs
-
Labs:
WBC 3.2 10^3/uL (4.8-10.8) L 10/23/24 06:24
RBC 2.75 10^6/uL (4.70-6.10) L 10/23/24 06:24
Hgb 8.9 g/dL (13.0-18.0) L 10/23/24 06:24
Hct 26.5 % (39.0-52.0) L 10/23/24 06:24
Plt Count 145 10^3/uL (130-400) 10/23/24 06:24
Sodium 139 mmol/L (135-145) 10/23/24 06:24
Potassium 4.4 mmol/L (3.5-5.1) 10/23/24 06:24
Chloride 111 mmol/L (98-107) H 10/23/24 06:24
Carbon Dioxide 19 mmol/L (22-30) L 10/23/24 06:24
BUN 48 mg/dl (9-20) H 10/23/24 06:24
Creatinine 4.5 mg/dL (0.7-1.3) H* 10/23/24 06:24
eGFR 12.28 10/23/24 06:24
Glucose 109 mg/dl (70-99) H 10/23/24 06:24
Calcium 8.7 mg/dl (8.4-10.2) 10/23/24 06:24
Albumin 3.4 g/dl (3.5-5.0) L 10/17/24 12:34
Physical Exam
-
Vital Signs:
Vital Signs
Temp Pulse Resp BP Pulse Ox
98.4 F 69 23 117/71 98
10/23/24 10:59 10/23/24 10:59 10/23/24 10:59 10/23/24 10:59 10/23/24 10:59
Cardiovascular:: Regular rate and rhythm
Respiratory:: Bilateral: CTA
Lung Excursion:: Normal
Abdomen:: Nontender and Soft
Bowel Sounds:: Normal
Extremity Edema:: None: Bilateral:
Driscoll Catheter: Yes
[2024-10-23] MEDS: ProAmatine PO ×3 (12:09→17:17)
--- NOTE | 2024-10-23 12:47 | W.PN.HOSP.TC ---
Today's Communication/Plan
-
Monitor vital signs see plan
Creatinine 4.5 today
Renal biopsy today
Nephrology following
Assessment / Plan
Assessment / Plan
Physical Exam
General: No Apparent Distress, appears comfortable at this time
HEENT: Normocephalic and Atraumatic
Respiratory: Negative Wheezes
Cardiac: Regular Rhythm and S1/S2
GI: Soft and Nontender
Genito-urinary: Coburn
Musculoskeletal: No Edema
Neuro: AO x 3
Psych: Calm
Assessment: 84M RCC Lt Nephrectomy HTN HLD BPH Hypothyroidism GERD Esophageal stricture CKD IV Liver Mets
MONA on CKD stage 4
Acute metabolic acidosis
Hx of solitary kidney after L nephrectomy
- FeNA 4.7%
- Renal US without obstruction
- follow extended serological workup
Continue with p.o. bicarb per renal
- Nephrology eval appreciated planned for IR bx Mon, home ASA on hold for procedure
-Creatinine baseline 3.0 persistently elevated this hospitalization initial 5.0 trended down to 4.5
Recent E. Faecalis prostatitis
Gram negative UTI this hospitalization;Suspect UTI is secondary to chronic indwelling Coburn cath. Complicated UTI
- Urine culture with Klebsiella sensitive to ciprofloxacin.
- cont Cipro 500 mg daily renally dosed started 10/20/24 planned for 5 days treatment
Anemia of chronic disease
Anemia 2/2 CKD
-monitor H&H, stable at this time
BPH
Chronic indwelling Coburn catheter
- continue dutasteride, tamsulosin
Esophageal stricture
Chronic dysphagia
History of GE junction stenosis
- Mechanical soft diet
- s/p EGD with esophageal dilatation on 09/27/24
Metastatic renal cell cancer status
- Known hepatic lesions
- His last immunotherapy was a month ago
- holding Cabometyx
Hx HTN
Hx Hypotension
- Home Midodrine continued
- Has not required home amlodipine consider dc on discharge
Hyperlipidemia
- continue statin, fenofibrate
Hypothyroidism
- continue levothyroxine
Hypocalcemia
-monitor and replete as necessary
-follow up Vit D 25 hydroxy level
Indigestion
-Tums prn
DVT ppx: SC Heparin (hold Wednesday Morning for IR bx)
Code: Full
Anticipated Discharge: > 48 hours
Subjective/Interval History
-
Date of Service: October 23, 2024
Denies pain
Objective Data
-
Labs:
Laboratory Results
10/23/24 10/23/24
06:24 16:44
WBC 3.2 L
Hgb 8.9 L Pending
Hct 26.5 L Pending
Plt Count 145
PT 17.3 H
INR 1.38
Sodium 139
Potassium 4.4
Chloride 111 H
Carbon Dioxide 19 L
BUN 48 H
Creatinine 4.5 H*
Glucose 109 H
Calcium 8.7
Vital Signs:
Vital Signs
Temp Pulse Resp BP Pulse Ox
98.2 F 71 19 124/69 94
10/23/24 12:45 10/23/24 12:45 10/23/24 12:45 10/23/24 12:45 10/23/24 12:45
I&O
10/22/24 10/23/24 10/24/24
06:59 06:59 06:59
Intake Total 1320 / 1320 240 / 240
Output Total 1125 / 1125 925 / 925
Balance 195 / 195 -685 / -685
[2024-10-23] MEDS: DESENEX/MITRAZOL/ZEASORB TOPICAL (14:01)
[2024-10-23] MEDS: SODIUM BICARBONATE PO ×3 (14:02→22:03)
[2024-10-23] MEDS: TRICOR PO (14:02)
[2024-10-23] MEDS: FLOMAX PO (14:02)
[2024-10-23] MEDS: PROSCAR PO (14:02)
[2024-10-23] MEDS: PROTONIX PO (14:02)
[2024-10-23] MEDS: CIPRO PO (14:44)
--- NOTE | 2024-10-23 14:45 | PTCARENOTE ---
Received patient for IR. Denies any pain. VSS WNL. Biopsy site intact. Draining yellow urine.
[2024-10-23 17:27] LABS: Hematocrit 26.4 % (39.0-52.0); Hemoglobin 8.5 g/dL (13.0-18.0)
[2024-10-23] MEDS: DESENEX/MITRAZOL/ZEASORB 1 APPLIC TOPICAL (19:55)
[2024-10-23] MEDS: TYLENOL 650 MG PO (19:57)
[2024-10-23] MEDS: PROTONIX 40 MG PO (19:58)
[2024-10-23] MEDS: DESYREL 100 MG PO (22:04)
[2024-10-23] MEDS: LIPITOR 20 MG PO (22:04)
[2024-10-23] MEDS: ZOFRAN 4 MG IV (22:31)
[2024-10-24 03:45] VITALS: BP 107/60
[2024-10-24] MEDS: SYNTHROID 75 MCG PO (05:48)
--- NOTE | 2024-10-24 06:06 | PTCARENOTE ---
All site checks to right lower back renal biopsy site WNL. No bleeding, hematoma, or hematuria noted. Patient denies pain. Plan of care ongoing.
[2024-10-24 07:31] LABS: % Basophils 1.2 % (0-2); % Eosinophils 1.6 % (0-6); % Immature Granulocytes 0.4 % (0-0.5); % Lymphocytes 29.5 % (20.5-51.1); % Monocytes 16.3 % (1.7-9.3); Absolute Lymphocytes 0.7 10^3/uL (1.2-3.4); Absolute Monocytes 0.4 10^3/uL (0.1-0.6); Absolute Neutrophils 1.3 10^3/uL (1.4-6.5); Hematocrit 24.2 % (39.0-52.0); Hemoglobin 7.8 g/dL (13.0-18.0); Mean Corp Hgb Conc. 32.2 g/dL (33.0-37.0); Mean Corpuscular Hgb 31.8 pg (27.0-31.0); Mean Corpuscular Volume 98.8 fL (80.0-94.0); Mean Platelet Volume 10.3 fL (7.4-10.4); Nucleated Red Blood Cells % 0 % (-); Platelet Count 113 10^3/uL (130-400); Red Blood Cell Count 2.45 10^6/uL (4.70-6.10); Red Cell Dist. Width 16.1 % (11.5-14.5); White Blood Cell Count 2.5 10^3/uL (4.8-10.8)
[2024-10-24 07:40] LABS: Blood Urea Nitrogen 52 mg/dl (9-20); Calcium 8.1 mg/dl (8.4-10.2); Carbon Dioxide 16 mmol/L (22-30); Chloride 109 mmol/L (98-107); Estimated Creatinine Clearance 10 ml/min; Glucose 101 mg/dl (70-99); Potassium 4.3 mmol/L (3.5-5.1); Sodium 137 mmol/L (135-145); eGFR 11.66
[2024-10-24 08:09] VITALS: BP 110/58
[2024-10-24] MEDS: DESENEX/MITRAZOL/ZEASORB 1 APPLIC TOPICAL ×2 (08:55→21:48)
[2024-10-24] MEDS: SODIUM BICARBONATE 1300 MG PO ×2 (08:56→17:38)
[2024-10-24] MEDS: PROTONIX 40 MG PO ×2 (08:56→21:48)
[2024-10-24] MEDS: TRICOR 145 MG PO (08:56)
[2024-10-24] MEDS: PROSCAR 5 MG PO (08:56)
[2024-10-24] MEDS: ProAmatine 5 MG PO ×2 (08:56→13:10)
--- NOTE | 2024-10-24 12:28 | W.PN.HOSP.TC ---
Addendum entered and electronically signed by Phil Mueller MD 10/24/24 17:34:
Discussed with son over the phone
Original Note:
Today's Communication/Plan
-
Monitor vital signs see plan
Continue monitor creatinine
Status post renal biopsy yesterday, results pending
Repeat hemoglobin later today
Assessment / Plan
Assessment / Plan
Physical Exam
General: No Apparent Distress, appears comfortable at this time
HEENT: Normocephalic and Atraumatic
Respiratory: Negative Wheezes
Cardiac: Regular Rhythm and S1/S2
GI: Soft and Nontender
Genito-urinary: Coburn
Musculoskeletal: No Edema
Neuro: AO x 3
Psych: Calm
Assessment: 84M RCC Lt Nephrectomy HTN HLD BPH Hypothyroidism GERD Esophageal stricture CKD IV Liver Mets
MONA on CKD stage 4
Acute metabolic acidosis
Hx of solitary kidney after L nephrectomy
- FeNA 4.7%
- Renal US without obstruction
- follow extended serological workup
Continue with p.o. bicarb per renal
-Nephrology following, status post IR renal biopsy 10/23, results pending, home ASA on hold for now
-Creatinine baseline 3.0 persistently elevated this hospitalization initial 5.0 trended down to 4.7
Recent E. Faecalis prostatitis
Gram negative UTI this hospitalization;Suspect UTI is secondary to chronic indwelling Coburn cath. Complicated UTI
- Urine culture with Klebsiella sensitive to ciprofloxacin.
- Cipro 500 mg daily renally dosed through 10/28/2024
Anemia of chronic disease
Anemia 2/2 CKD
-Monitor hemoglobin
BPH
Chronic indwelling Coburn catheter
- continue dutasteride, tamsulosin
Esophageal stricture
Chronic dysphagia
History of GE junction stenosis
- Mechanical soft diet
- s/p EGD with esophageal dilatation on 09/27/24
Metastatic renal cell cancer status
- Known hepatic lesions
- His last immunotherapy was a month ago
- holding Cabometyx
Hx HTN
Hx Hypotension
- Home Midodrine continued
- Has not required home amlodipine consider dc on discharge
Hyperlipidemia
- continue statin, fenofibrate
Hypothyroidism
- continue levothyroxine
Hypocalcemia
-monitor and replete as necessary
-follow up Vit D 25 hydroxy level
Indigestion
-Tums prn
DVT ppx: SC Heparin; hold for now; restart if hgb stable
Code: Full
Anticipated Discharge: Within 24 hours
Subjective/Interval History
-
Date of Service: October 24, 2024
Denies pain
Objective Data
-
Labs:
Laboratory Results
10/24/24
06:46
WBC 2.5 L
Hgb 7.8 L
Hct 24.2 L
Plt Count 113 L D
Sodium 137
Potassium 4.3
Chloride 109 H
Carbon Dioxide 16 L
BUN 52 H
Creatinine 4.7 H*
Glucose 101 H
Calcium 8.1 L
Vital Signs:
Vital Signs
Temp Pulse Resp BP Pulse Ox
98 F 64 18 110/58 99
10/24/24 08:09 10/24/24 08:56 10/24/24 08:09 10/24/24 08:56 10/24/24 08:09
I&O
10/23/24 10/24/24 10/25/24
06:59 06:59 06:59
Intake Total 240 / 240 120 / 120
Output Total 925 / 925 930 / 930
Balance -685 / -685 -810 / -810
[2024-10-24 13:08] VITALS: BP 114/61
[2024-10-24] MEDS: VISBIOME 1 CAP PO (13:11)
[2024-10-24] MEDS: CIPRO 500 MG PO (13:11)
[2024-10-24] MEDS: FLOMAX 0.8 MG PO (13:11)
--- NOTE | 2024-10-24 14:19 | W.PN.NEPH.PH ---
Today's Communication / Plan
-
follow hgb
renal biopsy completed on 10/23
Assessment/Plan
-
Assessment
Acute kidney injury
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
Metastatic recurrent renal cell cancer
Esophageal stricture
Hypotension controlled with midodrine
BPH chronic Driscoll
Hyperlipidemia
Anemia
Metabolic acidosis
Plan
Follow BMP ,creatinine stable at 4.7 ,non oliguric via driscoll
Continue midodrine for bp control
cause of hypotension uncertain
Maintain chronic Driscoll catheter
Serologies negative
Maintain sodium bicarbonate for metabolic acidosis
s/p renal biopsy on 10/23/24:, hemoglobin down to 7.8 from 8.5, if repeat lower , may require blood and will require repeat u/s to assess for ollie nephric hematoma
-
-
Date of Service: October 24, 2024
CC / HPI / ROS
-
Chief Complaint:
Abnormal lab
History of Present Illness:
MONA/Cr holding 4.7
BP low stable on midodrine
Hgb down to 7.8
acidosis persists on bicarb
Review of Systems:.
Driscoll catheter in place
No chest pain or shortness of breath.
Nonoliguric
Labs
-
Labs:
WBC 2.5 10^3/uL (4.8-10.8) L 10/24/24 06:46
RBC 2.45 10^6/uL (4.70-6.10) L 10/24/24 06:46
Plt Count 113 10^3/uL (130-400) L D 10/24/24 06:46
Sodium 137 mmol/L (135-145) 10/24/24 06:46
Potassium 4.3 mmol/L (3.5-5.1) 10/24/24 06:46
Chloride 109 mmol/L (98-107) H 10/24/24 06:46
Carbon Dioxide 16 mmol/L (22-30) L 10/24/24 06:46
BUN 52 mg/dl (9-20) H 10/24/24 06:46
Creatinine 4.7 mg/dL (0.7-1.3) H* 10/24/24 06:46
eGFR 11.66 10/24/24 06:46
Glucose 101 mg/dl (70-99) H 10/24/24 06:46
Calcium 8.1 mg/dl (8.4-10.2) L 10/24/24 06:46
Albumin 3.4 g/dl (3.5-5.0) L 10/17/24 12:34
Physical Exam
-
Vital Signs:
Vital Signs
Temp Pulse Resp BP Pulse Ox
98.4 F 63 18 114/61 99
10/24/24 13:08 10/24/24 13:10 10/24/24 13:08 10/24/24 13:10 10/24/24 08:09
Cardiovascular:: Regular rate and rhythm
Respiratory:: Bilateral: CTA
Lung Excursion:: Normal
Abdomen:: Nontender and Soft
Bowel Sounds:: Normal
Extremity Edema:: None: Bilateral:
Driscoll Catheter: Yes
[2024-10-24 15:40] VITALS: BP 137/67
[2024-10-24 16:04] VITALS: BP 128/69; PULSE 67; O2SAT 97
[2024-10-24 16:40] VITALS: BMI 26.4
[2024-10-24] MEDS: ProAmatine PO (17:38)
[2024-10-24] MEDS: DESYREL 100 MG PO (21:48)
[2024-10-24] MEDS: LIPITOR 20 MG PO (21:49)
[2024-10-24] MEDS: SODIUM BICARBONATE PO (21:50)
[2024-10-24 22:01] LABS: Hematocrit 25.6 % (39.0-52.0); Hemoglobin 8.7 g/dL (13.0-18.0)
[2024-10-24 23:46] VITALS: BP 108/61
[2024-10-25] MEDS: SYNTHROID 75 MCG PO (06:27)
[2024-10-25 07:13] VITALS: BP 119/60
[2024-10-25 08:02] LABS: % Eosinophils 3.3 % (0-6); % Immature Granulocytes 0.7 % (0-0.5); Absolute Eosinophils 0.1 10^3/uL (0-0.7); Absolute Lymphocytes 0.9 10^3/uL (1.2-3.4); Absolute Monocytes 0.5 10^3/uL (0.1-0.6); Absolute Neutrophils 1.4 10^3/uL (1.4-6.5); Hematocrit 25.7 % (39.0-52.0); Hemoglobin 8.2 g/dL (13.0-18.0); Mean Corp Hgb Conc. 31.9 g/dL (33.0-37.0); Mean Corpuscular Hgb 31.2 pg (27.0-31.0); Mean Corpuscular Volume 97.7 fL (80.0-94.0); Mean Platelet Volume 10.3 fL (7.4-10.4); Nucleated Red Blood Cells % 0 % (-); Platelet Count 113 10^3/uL (130-400); Red Blood Cell Count 2.63 10^6/uL (4.70-6.10)
[2024-10-25] MEDS: ProAmatine 5 MG PO ×3 (08:23→17:16)
[2024-10-25] MEDS: TRICOR 145 MG PO (08:23)
[2024-10-25] MEDS: PROSCAR 5 MG PO (08:23)
[2024-10-25] MEDS: PROTONIX 40 MG PO ×2 (08:23→20:37)
[2024-10-25] MEDS: SODIUM BICARBONATE 1300 MG PO ×3 (08:23→22:02)
[2024-10-25] MEDS: VISBIOME 1 CAP PO (08:24)
[2024-10-25] MEDS: DESENEX/MITRAZOL/ZEASORB 1 APPLIC TOPICAL ×2 (08:28→20:36)
[2024-10-25 10:08] LABS: Blood Urea Nitrogen 55 mg/dl (9-20); Carbon Dioxide 18 mmol/L (22-30); Chloride 105 mmol/L (98-107); Estimated Creatinine Clearance 10 ml/min; Glucose 109 mg/dl (70-99); Potassium 4.1 mmol/L (3.5-5.1); Sodium 138 mmol/L (135-145); eGFR 11.09
--- NOTE | 2024-10-25 11:30 | W.PN.HOSP.TC ---
Addendum entered and electronically signed by Phil Mueller MD 10/25/24 12:32:
Discussed with son over the phone
Original Note:
Today's Communication/Plan
-
Monitor vital signs
see plan
Monitor renal function closely
Biopsy results pending
Nephrology following
Monitor hemoglobin
Assessment / Plan
Assessment / Plan
Physical Exam
General: No Apparent Distress, appears comfortable at this time
HEENT: Normocephalic and Atraumatic
Respiratory: Negative Wheezes
Cardiac: Regular Rhythm and S1/S2
GI: Soft and Nontender
Genito-urinary: Coburn
Musculoskeletal: No Edema
Neuro: AO x 3
Psych: Calm
Assessment: 84M RCC Lt Nephrectomy HTN HLD BPH Hypothyroidism GERD Esophageal stricture CKD IV Liver Mets
MONA on CKD stage 4
Acute metabolic acidosis
Hx of solitary kidney after L nephrectomy
- FeNA 4.7%
- Renal US without obstruction
- follow extended serological workup
Continue with p.o. bicarb per renal
-Nephrology following, status post IR renal biopsy 10/23, results pending, home ASA on hold for now
-Creatinine baseline 3.0 persistently elevated this hospitalization initial 5.0; now in 4.5-4.9 range
Recent E. Faecalis prostatitis
Gram negative UTI this hospitalization;Suspect UTI is secondary to chronic indwelling Coburn cath. Complicated UTI
- Urine culture with Klebsiella sensitive to ciprofloxacin.
- Cipro 500 mg daily renally dosed through 10/28/2024
Anemia of chronic disease
Anemia 2/2 CKD
-Monitor hemoglobin
fever 10/23 likely 2/2 post kidney biopsy; no signs of infection. Monitor
BPH
Chronic indwelling Coburn catheter
- continue dutasteride, tamsulosin
Esophageal stricture
Chronic dysphagia
History of GE junction stenosis
- Mechanical soft diet
- s/p EGD with esophageal dilatation on 09/27/24
Metastatic renal cell cancer status
- Known hepatic lesions
- His last immunotherapy was a month ago
- holding Cabometyx
patient will f/u with oncology next week outpatient; discussed with patient's son
Hx HTN
Hx Hypotension
- Home Midodrine continued
- Has not required home amlodipine consider dc on discharge
Hyperlipidemia
- continue statin, fenofibrate
Hypothyroidism
- continue levothyroxine
Hypocalcemia
-monitor and replete as necessary
-follow up Vit D 25 hydroxy level
Indigestion
-Tums prn
DVT ppx: SC Heparin; hold for now; restart if hgb stable
Code: Full
Anticipated Discharge: Within 24 hours
Subjective/Interval History
-
Date of Service: October 25, 2024
Denies pain
Objective Data
-
Labs:
Laboratory Results
10/25/24
07:43
WBC 3.0 L
Hgb 8.2 L
Hct 25.7 L
Plt Count 113 L
Sodium 138
Potassium 4.1
Chloride 105
Carbon Dioxide 18 L
BUN 55 H
Creatinine 4.9 H*
Glucose 109 H
Calcium 8.0 L
Vital Signs:
Vital Signs
Temp Pulse Resp BP Pulse Ox
98.7 F 65 18 119/60 99
10/25/24 07:13 10/25/24 07:13 10/25/24 07:13 10/25/24 07:13 10/25/24 07:13
I&O
10/24/24 10/25/24 10/26/24
06:59 06:59 06:59
Intake Total 120 / 120 480 / 480
Output Total 930 / 930 850 / 850
Balance -810 / -810 -370 / -370
--- NOTE | 2024-10-25 12:02 | W.PN.NEPH.PH ---
Addendum entered and electronically signed by Justin Iverson MD 10/25/24 13:17:
D/W Dr. Ro Hunter oncology [facility]. likely can not get Opdivo anymore.
While steroids are not definitively shown to help AIN (and his has chronicity as well), they are not definitively not helpful. She thinks the risks of prednisone are acceptable for him so will start prednisone 40mg po daily. It can be tapered as
outpatient.
Original Note:
Today's Communication / Plan
-
dc planning
Assessment/Plan
-
Assessment
Acute kidney injury
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
Metastatic recurrent renal cell cancer
Esophageal stricture
Hypotension controlled with midodrine
BPH chronic Coburn
Hyperlipidemia
Anemia
Metabolic acidosis
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
Plan
Follow BMP
Continue midodrine for bp control
Maintain chronic Coburn catheter
Maintain sodium bicarbonate for metabolic acidosis
AVF US
vascular eval
we discussed that he will need dialysis in the future, and we should begin planning.
will contact oncology regarding [facility]AS[facility] and likely association with Opdivo.
ok for dc from renal standpoint
-
-
Date of Service: October 25, 2024
CC / HPI / ROS
-
Chief Complaint:
Abnormal lab
History of Present Illness:
MONA/Cr holding 4.9
BP low stable on midodrine
Hgb up to 8.2
acidosis persists/stable on bicarb
Review of Systems:.
Coburn catheter in place
No chest pain or shortness of breath.
Nonoliguric
Labs
-
Labs:
WBC 3.0 10^3/uL (4.8-10.8) L 10/25/24 07:43
RBC 2.63 10^6/uL (4.70-6.10) L 10/25/24 07:43
Hgb 8.2 g/dL (13.0-18.0) L 10/25/24 07:43
Hct 25.7 % (39.0-52.0) L 10/25/24 07:43
Plt Count 113 10^3/uL (130-400) L 10/25/24 07:43
Sodium 138 mmol/L (135-145) 10/25/24 07:43
Potassium 4.1 mmol/L (3.5-5.1) 10/25/24 07:43
Chloride 105 mmol/L (98-107) 10/25/24 07:43
Carbon Dioxide 18 mmol/L (22-30) L 10/25/24 07:43
BUN 55 mg/dl (9-20) H 10/25/24 07:43
Creatinine 4.9 mg/dL (0.7-1.3) H* 10/25/24 07:43
eGFR 11.09 10/25/24 07:43
Glucose 109 mg/dl (70-99) H 10/25/24 07:43
Calcium 8.0 mg/dl (8.4-10.2) L 10/25/24 07:43
Albumin 3.4 g/dl (3.5-5.0) L 10/17/24 12:34
Physical Exam
-
Vital Signs:
Vital Signs
Temp Pulse Resp BP Pulse Ox
98.7 F 65 18 119/60 99
10/25/24 07:13 10/25/24 07:13 10/25/24 07:13 10/25/24 07:13 10/25/24 07:13
Cardiovascular:: Regular rate and rhythm
Respiratory:: Bilateral: Coarse
Lung Excursion:: Normal
Abdomen:: Nontender and Soft
Bowel Sounds:: Normal
Extremity Edema:: None: Bilateral:
[2024-10-25] MEDS: CIPRO 500 MG PO (12:26)
[2024-10-25] MEDS: FLOMAX 0.8 MG PO (12:27)
[2024-10-25] MEDS: DELTASONE 40 MG PO (14:34)
--- NOTE | 2024-10-25 14:46 | CON.VAS ---
Consultation
Consultation Request
Date/Time Consultation Performed: 10/25/24 1430
Requesting Provider: Justin Iverson MD
Performing Provider: Audrey ROJAS
Reason for Consultation: AVF creation
Medical History
-
Chief Complaint: AVF creation for ESRD
History of Present Illness:
This is an 84 year old right handed man with significant past medical history for GERD HTN, HLD, hypothymism, stage IV CKD, and renal cancer with mets to liver and bones who presented to [facility] on 10/17/24 at instructions of outpatient
provider for abnormal lab value of creat 5.2, he was subsequently admitted for management of worsening renal failure. Of note he was also hospitalized from 09/22/24-10/04/24 for again worsening renal failure, vascular surgery consulted by nephrology
for pending requirement of HD and AV fistula creation. Patient denies any form of implantable device in chest wall. He currently offers no compliants.
Past Medical History
Past Medical History: GERD, HTN, Hypercholesterolemia, Hypothyroidism and Other (Dysphagia, Duodenal ulcer, Congenital diverticulum of esophagus, Achalasia of cardia, Bone neoplasm, Stage IV chronic kidney disease, Kidney neoplasm with mets to liver
and bone, BPH)
Past Surgical History: Other (Parathyroidectomy, Nephrectomy)
Social History
Tobacco: Non-Smoker
Alcohol: None
Drug: None
Personal: Single
Living: Assisted Living
Allergies / Home Medications
Allergy/AdvReac Type Severity Reaction Status Date / Time
Penicillins Allergy Unknown Verified 10/17/24 11:01
Sulfa (Sulfonamide Allergy Unknown Verified 10/17/24 11:01
Antibiotics)
�Medication �Instructions �Recorded �Confirmed �Type
acetaminophen 325 mg tablet 650 mg PO Q6HPRN PRN mild pain 05/12/24 10/17/24 History
aspirin 81 mg tablet,delayed 81 mg PO DAILY Blood Clot 05/12/24 10/17/24 History
release Prevention/Tx
atorvastatin 20 mg tablet 20 mg PO HS High Cholesterol 05/12/24 10/17/24 History
cholecalciferol (vitamin D3) 50 50 mcg PO DAILY Supplement 05/12/24 10/17/24 History
mcg (2,000 unit) tablet (Vitamin
D3)
levothyroxine 75 mcg tablet 75 mcg PO DAILY Thyroid 05/12/24 10/17/24 History
magnesium hydroxide 400 mg/5 mL 30 ml PO DAILYPRN PRN constipation 05/12/24 10/17/24 History
oral suspension (Milk of Magnesia)
tamsulosin 0.4 mg capsule 0.8 mg PO NOON Urinary Issue 05/12/24 10/17/24 History
trazodone 100 mg tablet 100 mg PO HS Sleep 05/12/24 10/17/24 History
dutasteride 0.5 mg capsule 0.5 mg PO DAILY Urinary Issue 08/27/24 10/17/24 History
(Avodart)
pantoprazole 40 mg tablet,delayed 40 mg PO BID GERD 09/23/24 10/17/24 History
release (Protonix)
amlodipine 5 mg tablet (Norvasc) 5 mg PO DAILY 10/17/24 10/17/24 History
fenofibrate nanocrystallized 145 145 mg PO DAILY 10/17/24 10/17/24 History
mg tablet (Tricor)
methocarbamol 500 mg tablet 500 mg PO Q6HPRN PRN muscle spasms 10/17/24 10/17/24 History
midodrine 5 mg tablet 5 mg PO TID 10/17/24 10/17/24 History
oxycodone 5 mg tablet,oral ONLY mg PO 1XD 10/25/24 History
(not feeding tubes)
Review of Systems
-
History Source: Patient
Constitutional: Reports No Symptoms
EENT: Reports No Symptoms
Respiratory: Reports No Symptoms
Cardiac: Reports No Symptoms
Vascular: Denies Leg Pain / Claudication or Numbness
Abdomen/GI: Reports No Symptoms
: Reports No Symptoms
Musculoskeletal: Reports No Symptoms
Skin: Reports No Symptoms
Neurological: Reports No Symptoms
Endocrine: Reports No Symptoms
Physical Exam
Vital Signs
Temp Pulse Resp BP Pulse Ox
98.7 F 65 18 119/60 99
10/25/24 07:13 10/25/24 07:13 10/25/24 07:13 10/25/24 07:13 10/25/24 07:13
Lab Results
10/25/24 07:43
10/25/24 07:43
Physical Exam
General: No Apparent Distress
HEENT: Normocephalic, Anicteric and Atraumatic
Respiratory: Non Labored Respirations
Cardiac: Negative JVD
GI: Soft, Non Tender and Non Distended
Musculoskeletal: No Edema and Other (BL radial artery pulse +2)
Skin: Warm and Dry
Neuro: AO x 3
Assessment / Plan
-
Assessment: 84 year old male with ESRD requested to see patient to begin process for AVF creation
Plan:
Preop HD US obtained
Follow up appointment placed in dc instructions with Dr. Coburn for AVF creation surgical discussion
--- NOTE | 2024-10-25 14:54 | PN.CDI ---
CDI
- -
CDI:
Physician Documentation Request
Admit Date: 10/17/24 13:58
Dear Doctor Ervin,
Please review the following and provide your response in the progress notes.
Clinical Indicators:
- 10/24 Founder / Ceo note indicates severe protein calorie malnutrition
- Unintentional weight loss >10% in 6 months
- Nutrient intake </= 75% estimated energy needs >/= 1 month
- 'since June he has lost 50lbs when he ahd his esophageal stricture'
Based on the above information and your assessment, which of the following most accurately represents the patient's nutritional status?
Severe protein calorie malnutrition
Other (please specify)
Sebastian Criteria ([facility] Hospitalist 2017)
2 or more criteria must be present for either
non severe or severe malnutrition
Note that the criteria differs related to the
presence of an acute or chronic illness
Acute Illness Chronic Illness
Energy Intake Non Severe: <75% for >7 days Non Severe: <75% for >1 month
Severe: <50% for >5 days Severe: <75% for >1 month
Weight Loss Non Severe: 1-2% over 1 week Non Severe: 5% over 1 month
5% over 1 month 7.5% over 3 months
7.5% over 3 months 10% over 6 months
1 year N/A 20% over 1 year
Severe: >2% over 1 week Severe: >5% over 1 month
>5% over 1 month >7.5% over 3 months
>7.5% over 3 months >10% over 6 months
1 year N/A >20% over 1 year
Body Fat Non Severe: Mild Decrease Non Severe: Mild Loss
Severe: Moderate Decrease Severe: Severe Loss
Muscle Mass Non Severe: Mild Decrease Non Severe: Mild Loss
Severe: Moderate Decrease Severe: Severe Loss
Fluid Accumulation Non Severe: Mild Accumulation Non Severe: Mild Accumulation
Severe: Moderate to severe Severe: Moderate to severe
accumulation accumulation
Reduced Acquisition Cost Estimator Strength Non Severe: N/A Non Severe: N/A
Severe: Measurably reduced Severe: Measurably reduced
Additional criteria that can be used to Determine if Mild or Moderate Malnutrition ([employer]ck Manual 2018)
Mild Moderate Severe
Albumin gm/dl <3.0 gm/dl <2.5 gm/dl <2.0 gm/dl
Pre Albumin mg/dl <15 gm/dl <10 mg/dl <5.0 mg/dl
BMI <18.5 <17 <16
Use of terms such as suspected, likely, concern for, or probable (associated with a specific diagnosis that is being evaluated, monitored, or treated as if it exists) are acceptable and can be coded in the inpatient setting, when documented at the
time of discharge.
Thank you,
Heidi Chairez RN
CDI Specialist
Please use your independent medical judgment in providing your response.
[2024-10-25 15:09] VITALS: BP 125/63
--- NOTE | 2024-10-25 16:24 | CM ---
Addendum entered by Funmilayo Stallworth 10/26/24 11:09:
Late entry, IMM completed.
Original Note:
Patient seen bedside.
Patient for AV fistula today.
List of HD outpatient facilities provided to patient.
Patient for d/c home tomorrow with [facility].
Patient has Coburn catheter.
Updated referral in [facility].
Plan: Home with [facility]
[2024-10-25] MEDS: LIPITOR 20 MG PO (20:37)
[2024-10-25] MEDS: DESYREL 100 MG PO (22:02)
[2024-10-25 23:48] VITALS: BP 110/60
[2024-10-26] MEDS: SYNTHROID 75 MCG PO (05:27)
[2024-10-26 07:43] LABS: % Basophils 0.3 % (0-2); % Immature Granulocytes 0.9 % (0-0.5); % Lymphocytes 25.7 % (20.5-51.1); % Monocytes 14.4 % (1.7-9.3); % Neutrophils 58.7 % (42.2-75.2); Absolute Lymphocytes 0.9 10^3/uL (1.2-3.4); Absolute Monocytes 0.5 10^3/uL (0.1-0.6); Hematocrit 26.8 % (39.0-52.0); Hemoglobin 8.9 g/dL (13.0-18.0); Mean Corp Hgb Conc. 33.2 g/dL (33.0-37.0); Mean Corpuscular Hgb 32.1 pg (27.0-31.0); Mean Corpuscular Volume 96.8 fL (80.0-94.0); Mean Platelet Volume 10.8 fL (7.4-10.4); Nucleated Red Blood Cells % 0 % (-); Platelet Count 135 10^3/uL (130-400); Red Blood Cell Count 2.77 10^6/uL (4.70-6.10); Red Cell Dist. Width 15.9 % (11.5-14.5); White Blood Cell Count 3.3 10^3/uL (4.8-10.8)
[2024-10-26] MEDS: ProAmatine 5 MG PO ×2 (08:07→11:51)
[2024-10-26] MEDS: PROTONIX 40 MG PO (08:07)
[2024-10-26] MEDS: SODIUM BICARBONATE 1300 MG PO (08:11)
[2024-10-26] MEDS: TRICOR 145 MG PO (08:11)
[2024-10-26] MEDS: VISBIOME 1 CAP PO (08:11)
[2024-10-26] MEDS: DELTASONE 40 MG PO (08:11)
[2024-10-26] MEDS: PROSCAR 5 MG PO (08:11)
[2024-10-26 08:12] VITALS: BP 118/70
[2024-10-26] MEDS: ASPIR LOW (ENTERIC COATED) 81 MG PO (08:12)
[2024-10-26] MEDS: DESENEX/MITRAZOL/ZEASORB 1 APPLIC TOPICAL (08:14)
[2024-10-26] MEDS: MIRALAX 17 GRAMS PO (08:24)
[2024-10-26 10:05] LABS: Blood Urea Nitrogen 56 mg/dl (9-20); Calcium 8.2 mg/dl (8.4-10.2); Carbon Dioxide 21 mmol/L (22-30); Chloride 107 mmol/L (98-107); Estimated Creatinine Clearance 10 ml/min; Glucose 125 mg/dl (70-99); Potassium 4.6 mmol/L (3.5-5.1); Sodium 138 mmol/L (135-145); eGFR 11.66
--- NOTE | 2024-10-26 11:04 | W.PN.HOSP.TC ---
Today's Communication/Plan
-
Monitor vital signs see plan
Continue with prednisone
On PPI
Discharge today
Time of discharge 38 minutes
Assessment / Plan
Assessment / Plan
Physical Exam
General: No Apparent Distress, appears comfortable at this time
HEENT: Normocephalic and Atraumatic
Respiratory: Negative Wheezes
Cardiac: Regular Rhythm and S1/S2
GI: Soft and Nontender
Genito-urinary: Coburn
Musculoskeletal: No Edema
Neuro: AO x 3
Psych: Calm
Assessment: 84M RCC Lt Nephrectomy HTN HLD BPH Hypothyroidism GERD Esophageal stricture CKD IV Liver Mets
MONA on CKD stage 4
Acute metabolic acidosis
Hx of solitary kidney after L nephrectomy
- FeNA 4.7%
- Renal US without obstruction
- follow extended serological workup
Continue with p.o. bicarb per renal
-Nephrology following, status post IR renal biopsy 10/23, results with interstitial nephritis, 40% fibrosis. Seen by vascular surgery and will follow-up with them outpatient for fistula. Patient will likely require dialysis. Nephrology following.
Nephrology also discussed with his outpatient oncologist and they recommended 40 mg prednisone daily. And they will taper it outpatient.
-Creatinine baseline 3.0 persistently elevated this hospitalization initial 5.0; now in 4.5-4.9 range
Recent E. Faecalis prostatitis
Gram negative UTI this hospitalization;Suspect UTI is secondary to chronic indwelling Coburn cath. Complicated UTI
- Urine culture with Klebsiella sensitive to ciprofloxacin.
- Cipro 500 mg daily renally dosed through 10/28/2024
Anemia of chronic disease
Anemia 2/2 CKD
-Monitor hemoglobin
fever 10/23 likely 2/2 post kidney biopsy; no signs of infection. Monitor
BPH
Chronic indwelling Coburn catheter
- continue dutasteride, tamsulosin
Esophageal stricture
Chronic dysphagia
History of GE junction stenosis
- Mechanical soft diet
- s/p EGD with esophageal dilatation on 09/27/24
Metastatic renal cell cancer status
- Known hepatic lesions
- His last immunotherapy was a month ago
- holding Cabometyx
patient will f/u with oncology next week outpatient; discussed with patient's son
Hx HTN
Hx Hypotension
- Home Midodrine continued
- Has not required home amlodipine consider dc on discharge
Hyperlipidemia
- continue statin, fenofibrate
Hypothyroidism
- continue levothyroxine
Hypocalcemia
-monitor and replete as necessary
-follow up Vit D 25 hydroxy level
Severe protein calorie malnutrition
Indigestion
-Tums prn
DVT ppx: SC Heparin; hold for now; restart if hgb stable
Code: Full
Anticipated Discharge: Today
Subjective/Interval History
-
Date of Service: October 26, 2024
denies pain
Objective Data
-
Labs:
Laboratory Results
10/26/24
07:03
WBC 3.3 L
Hgb 8.9 L
Hct 26.8 L
Plt Count 135
Sodium 138
Potassium 4.6
Chloride 107
Carbon Dioxide 21 L
BUN 56 H
Creatinine 4.7 H*
Glucose 125 H
Calcium 8.2 L
Vital Signs:
Vital Signs
Temp Pulse Resp BP Pulse Ox
98 F 63 18 118/70 100
10/26/24 08:12 10/26/24 08:12 10/26/24 08:12 10/26/24 08:12 10/26/24 08:12
I&O
10/25/24 10/26/24 10/27/24
06:59 06:59 06:59
Intake Total 480 / 480 600 / 600
Output Total 850 / 850 1050 / 1050
Balance -370 / -370 -450 / -450
--- NOTE | 2024-10-26 11:09 | W.DCSUMMARY ---
Discharge Summary
Discharge Data
Date of Admission: 10/17/24
Date of Discharge: 10/26/24
-
Pending Results: No
Hospital Course
84-year-old male with history of renal cell carcinoma, left nephrectomy, hypertension, anemia, BPH, hypothyroidism, GERD, insufficiency fracture, CKD stage IV, recent prostatitis, anemia of chronic disease came to the hospital with acute kidney
injury and metabolic acidosis. Patient was seen by nephrology throughout hospitalization. Patient kidney function did not improve on its own so patient underwent renal biopsy. 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
fibrosis. Nephrology then discussed with patient oncology with outpatient symptoms could likely be from recent chemotherapy. Patient was then started on 40 mg daily prednisone and was instructed to follow-up closely with his outpatient oncologist
for further taper. On this hospitalization patient also had urinary tract infection with Klebsiella and was treated with ciprofloxacin. After the kidney biopsy patient had a mild fever which was likely thought was secondary to procedure. There
was no other signs of infection. Once patient symptoms continue to improve, he was then discharged home with instructions to follow-up with all his physicians outpatient.
Discharge Plan
-
Patient Disposition: Home (Routine Discharge)
Discharge Diagnosis/Procedures: Acute kidney injury on CKD stage IV
Status post renal biopsy with interstitial nephritis, 40% fibrosis
Urinary tract infection
Anemia of chronic disease
Metastatic renal cell cancer
Diet: As tolerated and Other diet
Additional Diets: Mechanical soft diet
Activity: As tolerated
Driving Restrictions: As prior to admission
Bathing Restrictions: None
Blood Work: BMP next week with nephrology
Activity Restrictions/Additional Instructions:
Please follow-up with your oncology soon outpatient
You are also started on 40 mg prednisone daily after discussion with your oncologist. Please follow-up with oncology closely outpatient for prednisone tapering
Referrals:
Kristine Bernal DO [Family Provider] -
Gerhard Coburn III, MD [Active] - 11/08/24 8:00 am
Justin Iverson MD [Active] -
Prescriptions:
New
miconazole nitrate [Miconazorb AF] 2 % Powder
1 applic topical BID Qty: 85 0RF
ciprofloxacin HCl 500 mg Tablet
500 mg PO DAILY@1200 Qty: 4 0RF
polyethylene glycol 3350 17 gram Powder In Packet
17 g PO DAILYPRN PRN (Reason: constipation) Qty: 30 0RF
prednisone 20 mg Tablet
40 mg PO DAILY Qty: 30 0RF
sodium bicarbonate 650 mg Tablet
1,300 mg PO TID 15 Days Qty: 90 0RF
Lactobac/Bifidobac [Visbiome]
1 cap PO DAILY Qty: 7 0RF
Continued
acetaminophen 325 mg Tablet
650 mg PO Q6HPRN PRN (Reason: mild pain)
atorvastatin 20 mg Tablet
20 mg PO HS
aspirin 81 mg Tablet,Delayed Release (Dr/Ec)
81 mg PO DAILY
levothyroxine 75 mcg Tablet
75 mcg PO DAILY
magnesium hydroxide [Milk of Magnesia] 400 mg/5 mL Suspension
30 ml PO DAILYPRN PRN (Reason: constipation)
tamsulosin 0.4 mg Capsule
0.8 mg PO NOON
trazodone 100 mg Tablet
100 mg PO HS
cholecalciferol (vitamin D3) [Vitamin D3] 50 mcg (2,000 unit) Tablet
50 mcg PO DAILY
dutasteride [Avodart] 0.5 mg Capsule
0.5 mg PO DAILY
pantoprazole [Protonix] 40 mg tablet,delayed release (DR/EC)
40 mg PO BID
methocarbamol 500 mg Tablet
500 mg PO Q6HPRN PRN (Reason: muscle spasms)
fenofibrate nanocrystallized [Tricor] 145 mg Tablet
145 mg PO DAILY
midodrine 5 mg tablet
5 mg PO TID
oxycodone 5 mg Tablet, Oral Only
PO 1XD
Discontinued
amlodipine [Norvasc] 5 mg Tablet
5 mg PO DAILY
Discharge Orders:
Discharge Patient (As Directed); Ordered 10/26/24
Ordered By: Phil Mueller
Discharge Date and Time
Discharge Date/Time: 10/26/24 15:38
Print Language: KINYARWANDA
[2024-10-26 11:22] VITALS: BP 114/64; PULSE 71; O2SAT 99
--- NOTE | 2024-10-26 11:28 | CM ---
Addendum entered by Funmilayo Stallworth 10/26/24 13:39:
Spoke with Tammi at [facility], will accept back. please call with report.
Addendum entered by Funmilayo Stallworth 10/26/24 12:13:
Clinicals faxed to [facility] for review.
Once CM hears back from [facility], will schedule WC van.
Patient agreeable to WC van and costs.
Addendum entered by Funmilayo Stallworth 10/26/24 11:47:
Patient from personal care at [facility]
report# [phone]

Addendum entered by Funmilayo Stallworth 10/26/24 11:39:
Spoke to patient bedside, patient aware he has a discharge for today.
patient stated he has not moved his bowels in 5 days, and needs to go before he is d/c.
Per patient he would prefer dc tomorrow and son will set up transnet transport for him.
Per patient [facility] does provide transportation on and but only until 5 pm and needs to be scheduled ahead of time.
Nursing updated.
Original Note:
Patient seen bedside.
Plan: Home with [facility]
[2024-10-26] MEDS: FLOMAX 0.8 MG PO (11:49)
[2024-10-26] MEDS: CIPRO 500 MG PO (11:51)
--- NOTE | 2024-10-26 14:08 | W.PN.NEPH.PH ---
Today's Communication / Plan
-
dc
Assessment/Plan
-
Assessment
Acute kidney injury
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
Metastatic recurrent renal cell cancer
Esophageal stricture
Hypotension controlled with midodrine
BPH chronic Coburn
Hyperlipidemia
Anemia
Metabolic acidosis
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
Plan
Follow BMP
Continue midodrine for bp control
Maintain chronic Coburn catheter
Maintain sodium bicarbonate for metabolic acidosis
AVF US
vascular eval OP scheduled
we discussed that he will need dialysis in the future, and we should begin planning.
prednisone 40mg daily. discussed with oncology
ok for dc from renal standpoint
-
-
Date of Service: October 26, 2024
CC / HPI / ROS
-
Chief Complaint:
Abnormal lab
History of Present Illness:
MONA/Cr holding 4.7
BP low stable on midodrine
acidosis persists/stable on bicarb 21
Review of Systems:.
Coburn catheter in place
No chest pain or shortness of breath.
Nonoliguric
Labs
-
Labs:
WBC 3.3 10^3/uL (4.8-10.8) L 10/26/24 07:03
RBC 2.77 10^6/uL (4.70-6.10) L 10/26/24 07:03
Hgb 8.9 g/dL (13.0-18.0) L 10/26/24 07:03
Hct 26.8 % (39.0-52.0) L 10/26/24 07:03
Plt Count 135 10^3/uL (130-400) 10/26/24 07:03
Sodium 138 mmol/L (135-145) 10/26/24 07:03
Potassium 4.6 mmol/L (3.5-5.1) 10/26/24 07:03
Chloride 107 mmol/L (98-107) 10/26/24 07:03
Carbon Dioxide 21 mmol/L (22-30) L 10/26/24 07:03
BUN 56 mg/dl (9-20) H 10/26/24 07:03
Creatinine 4.7 mg/dL (0.7-1.3) H* 10/26/24 07:03
eGFR 11.66 10/26/24 07:03
Glucose 125 mg/dl (70-99) H 10/26/24 07:03
Calcium 8.2 mg/dl (8.4-10.2) L 10/26/24 07:03
Albumin 3.4 g/dl (3.5-5.0) L 10/17/24 12:34
Physical Exam
-
Vital Signs:
Vital Signs
Temp Pulse Resp BP Pulse Ox
98 F 63 18 118/70 100
10/26/24 08:12 10/26/24 08:12 10/26/24 08:12 10/26/24 08:12 10/26/24 08:12
Cardiovascular:: Regular rate and rhythm
Respiratory:: Bilateral: CTA
Lung Excursion:: Normal
Abdomen:: Nontender and Soft
Bowel Sounds:: Normal
Extremity Edema:: None: Bilateral:
[2024-10-26] MEDS: SENOKOT-S 1 TABLET PO (15:06)
[2024-10-26] MEDS: DULCOLAX 10 MG RECTAL (15:06)
== END 2024-10-26 15:38 | disposition home health service (06) | DRG 698 ==
LOC: 4 EAST ACU 13:58
PROVIDERS: Emergency Medicine; Physician Assistant; Radiology Vascular & Interventional Radiology; Registered Nurse; ADMITTING PHYSICIAN Internal Medicine; ATTENDING PHYSICIAN Internal Medicine; CONSULT PHYSICIAN Specialist; CONSULT PHYSICIAN Surgery Vascular Surgery; EMERGENCY PHYSICIAN Emergency Medicine; FAMILY PHYSICIAN Hospitalist
PROC: 0TB03ZX Excision of Right Kidney, Percutaneous Approach, Diagnostic (ICD-10-PCS; 2024-10-23)
DX: T83.511A Infection and inflammatory reaction due to indwelling urethral catheter, initial encounter (principal); E43 Unspecified severe protein-calorie malnutrition; N12 Tubulo-interstitial nephritis, not specified as acute or chronic; C64.2 Malignant neoplasm of left kidney, except renal pelvis; C78.7 Secondary malignant neoplasm of liver and intrahepatic bile duct; Q39.6 Congenital diverticulum of esophagus; C79.51 Secondary malignant neoplasm of bone; E87.21 Acute metabolic acidosis; N17.9 Acute kidney failure, unspecified; N18.4 Chronic kidney disease, stage 4 (severe); N39.0 Urinary tract infection, site not specified; D63.1 Anemia in chronic kidney disease; K22.2 Esophageal obstruction; R79.89 Other specified abnormal findings of blood chemistry; N40.0 Benign prostatic hyperplasia without lower urinary tract symptoms; I13.10 Hypertensive heart and chronic kidney disease without heart failure, with stage 1 through stage 4 chronic kidney disease, or unspecified chronic kidney disease; I95.9 Hypotension, unspecified; E78.00 Pure hypercholesterolemia, unspecified; E03.9 Hypothyroidism, unspecified; B96.1 Klebsiella pneumoniae [K. pneumoniae] as the cause of diseases classified elsewhere; K21.9 Gastro-esophageal reflux disease without esophagitis; K22.0 Achalasia of cardia; E83.51 Hypocalcemia; K30 Functional dyspepsia; R50.9 Fever, unspecified; Y84.6 Urinary catheterization as the cause of abnormal reaction of the patient, or of later complication, without mention of misadventure at the time of the procedure; Y92.9 Unspecified place or not applicable; Z90.5 Acquired absence of kidney; Z85.528 Personal history of other malignant neoplasm of kidney; Z88.2 Allergy status to sulfonamides; Z88.0 Allergy status to penicillin; Z79.82 Long term (current) use of aspirin; Z79.890 Hormone replacement therapy; Z92.21 Personal history of antineoplastic chemotherapy; Z87.891 Personal history of nicotine dependence; Z68.26 Body mass index [BMI] 26.0-26.9, adult
CPT/HCPCS: 50200; 76770; 76942; 80048; 80076; 80202; 81003; 81015; 81099; 82306; 82533; 82570; 83516; 83521; 84132; 84155; 84156; 84165; 84300; 85014; 85018; 85025; 85027; 85610; 86038; 86160; 86335; 87070; 87077; 87086; 87186; 88305; 93306; 93985; 96361; 97162; 97166; 97530; 99152; 99153; 99285

== ENCOUNTER 2024-12-01 13:46 | Emergency (ER) | payer OTHER, SELFPAY ==
[2024-12-01 13:48] VITALS: BP 120/61
--- NOTE | 2024-12-01 15:19 | ED.GENMED ---
History of Present Illness
General
Chief Complaint: Male Genito-Urinary Symptoms
Source: patient
Exam Limitations: none
Time Seen by Provider: 12/01/24 15:10
History of Present Illness
History of Present Illness:
84yoM with a history of BPH with chronic Coburn catheter, remote history of renal cell carcinoma s/p L nephrectomy 30 years ago, hypertension, hyperlipidemia, and KATLYN presenting via EMS for a Coburn catheter issue. Patient has had a chronic Coburn
catheter for about a year. He has regular catheter changes scheduled every 3 weeks by visiting nurses from [facility]. A visiting nurse came this morning around 10am to change his catheter. He felt a 'sensation' when the balloon was inflated which he
does not usually feel. The catheter has not drained since placement so he came to the ED. He reports some minor suprapubic pressure. No fevers, chills, flank pain, vomiting. Coburn catheter was draining well prior to the exchange this morning and
he has never had this issue before.
Past History
Past History
ED Past Medical History: Other (Kidney cancer status post left nephrectomy, hypertension, hyperlipidemia, BPH)
ED Past Surgical History: Other (Left-sided nephrectomy, inguinal hernia repair, septoplasty)
Social History
Tobacco: Non-smoker
Alcohol: None
Drug: None
Personal:
Living: other
Phy Exam
General Physical Exam
General Presentation: well appearing and no apparent distress
General age: appears stated age
General Skin: warm and dry
General Habitus: normal
General Mental: alert
ENT Exam
ENT Exam: normocephalic
Pulmonary Exam
Pulmonary Exam: no respiratory distress
Gastrointestinal Exam
Gastrointestinal Exam: soft, non distended and other (Minor discomfort in suprapubic region. Abdomen soft, non-distended. )
Genitourinary Exam Male
Exam Male: other (Coburn catheter in place without any drainage in the leg bag.)
Neurological Exam
Neurological Exam: alert
Martín Coma Scale
Eye Opening: Spontaneous
Verbal Response: Oriented
Motor Response: Obeys Commands
GCS Total Score: 15
Skin Exam
Skin Exam: normal color and warm/dry
Psychiatric Exam
Psychiatric Exam: normal mood/affect
Course
Orders/Labs/Results
Orders:
Orders
12/01/24 15:19
Lidocaine 2% [Lidocaine Uro-Jet 2%] 1 syringe .ROUTE .STK-MED ONE
Lidocaine 2% [Lidocaine Uro-Jet 2%] 1 syringe TOPICAL NOW STA
12/01/24 18:18
Source Patient Testing Urgent
Has Consent Form Been Signed?: No
Comment: verbal consent obtained
Vital Signs
Initial and Last Documented VS:
Initial Vital Signs
Temp Pulse Resp BP Pulse Ox
98.5 F 80 18 120/61 100
12/01/24 13:48 12/01/24 13:48 12/01/24 13:48 12/01/24 13:48 12/01/24 13:48
Last Documented Vital Signs
Temp Pulse Resp BP Pulse Ox
98.5 F 80 18 120/61 100
12/01/24 13:48 12/01/24 13:48 12/01/24 13:48 12/01/24 13:48 12/01/24 13:48
MDM/Problems Addressed
Differential Diagnosis Includes:
84yoM here with no urinary output from Coburn catheter after visiting nurse changed catheter this morning. Hx of chronic Coburn. VSS. He is well-appearing no acute distress. No urine noted in leg bag. Differential diagnosis includes: False tract,
malpositioned Coburn catheter, catheter blockage from clot
Initial ED plan: Bladder scan 176 without any output. Will have nursing staff exchange Coburn catheter.
*Critical Care Note
Total Time (30-74mins, 75-104mins- exclusive of procedures): Not Applicable
Update Note
Update Note:
Nursing staff initially exchanged the catheter to a 16 Ukrainian with only minimal bloody output with small clots noted in the tubing. No improvement in drainage after hand irrigation. Catheter was exchanged for a 24 Ukrainian three-way. Catheter is
now draining clear yellow urine. He is stable for discharge. He was advised to follow-up with urology. ED return precautions discussed including if the catheter stops draining. Patient and daughter are in agreement with plan. Patient
transported back to [facility] in stable condition.
Some blood got into nurse's eye during Coburn exchange. Source panel labs obtained with verbal consent from patient.
ED Attending Note
-
Portions of this chart may have been created with voice recognition software.� Occasional wrong word or��sound alike� substitutions may have occurred due to the inherent limitations of voice recognition software.
Discharge Plan
Departure
Patient Disposition: Home (Routine Discharge)
Date of Disposition: 12/01/24
Time of Disposition: 17:48
Patient with high blood pressure during this ER visit?: No
Discharge Problem:
Malfunction of Coburn catheter
Instructions: How to Care for Your Coburn Catheter, Male
Prescriptions:
No Action
acetaminophen 325 mg Tablet
650 mg PO Q6HPRN PRN (Reason: mild pain)
atorvastatin 20 mg Tablet
20 mg PO HS
aspirin 81 mg Tablet,Delayed Release (Dr/Ec)
81 mg PO DAILY
levothyroxine 75 mcg Tablet
75 mcg PO DAILY
magnesium hydroxide [Milk of Magnesia] 400 mg/5 mL Suspension
30 ml PO DAILYPRN PRN (Reason: constipation)
tamsulosin 0.4 mg Capsule
0.8 mg PO NOON
trazodone 100 mg Tablet
100 mg PO HS
cholecalciferol (vitamin D3) [Vitamin D3] 50 mcg (2,000 unit) Tablet
50 mcg PO DAILY
dutasteride [Avodart] 0.5 mg Capsule
0.5 mg PO DAILY
pantoprazole [Protonix] 40 mg tablet,delayed release (DR/EC)
40 mg PO BID
methocarbamol 500 mg Tablet
500 mg PO Q6HPRN PRN (Reason: muscle spasms)
fenofibrate nanocrystallized [Tricor] 145 mg Tablet
145 mg PO DAILY
midodrine 5 mg tablet
5 mg PO TID
oxycodone 5 mg Tablet, Oral Only
PO 1XD
miconazole nitrate [Miconazorb AF] 2 % Powder
1 applic topical BID Qty: 85 0RF
ciprofloxacin HCl 500 mg Tablet
500 mg PO DAILY@1200 Qty: 4 0RF
polyethylene glycol 3350 17 gram Powder In Packet
17 g PO DAILYPRN PRN (Reason: constipation) Qty: 30 0RF
prednisone 20 mg Tablet
40 mg PO DAILY Qty: 30 0RF
sodium bicarbonate 650 mg Tablet
1,300 mg PO TID 15 Days Qty: 90 0RF
Lactobac/Bifidobac [Visbiome]
1 cap PO DAILY Qty: 7 0RF
Referrals:
Kristine Bernal DO [Family Provider] -
Robles Angela MD [Active] -
Activity Restrictions/Additional Instructions:
Please call on Wednesday to schedule a follow-up with urology. Return to the ER with any worsening symptoms or if your catheter stops draining.
Interventions
Interventions:
*Risk Screen - Suicide Last Done: 12/01/24 13:48
*General Assessment Last Done: 12/01/24 13:48
*Neglect/Abuse Screening Last Done: 12/01/24 13:48
*ED- Fall Risk Assessment Last Done: 12/01/24 13:48
*ED COVID-19 Vaccine History Last Done: 12/01/24 13:48
*Nursing Disposition Last Done: 12/01/24 18:44
ED-Male Genitourinary Assessment Last Done: 12/01/24 15:10
Discharge Date and Time
Discharge Date/Time: 12/01/24 18:45
Print Language: CZECH
[2024-12-01] MEDS: LIDOCAINE URO-JET 2% 1 SYRINGE TOPICAL (15:44)
[2024-12-01 18:02] VITALS: BMI 25.2
[2024-12-01 19:13] LABS: Hepatitis B Surface Antigen Negative (Negative)
[2024-12-01 19:23] LABS: HIV Combo Negative (Negative)
[2024-12-01 19:31] LABS: Hepatitis C Antibody Negative (Negative)
== END 2024-12-01 18:45 | disposition home or self-care (01) ==
LOC: EMR 13:46
PROVIDERS: Physician Assistant; EMERGENCY PHYSICIAN Emergency Medicine; FAMILY PHYSICIAN Hospitalist; REFERRING PHYSICIAN Specialist
DX: T83.018A Breakdown (mechanical) of other urinary catheter, initial encounter (principal); Y92.9 Unspecified place or not applicable; I10 Essential (primary) hypertension; E78.00 Pure hypercholesterolemia, unspecified; N40.0 Benign prostatic hyperplasia without lower urinary tract symptoms; G47.33 Obstructive sleep apnea (adult) (pediatric); Z85.528 Personal history of other malignant neoplasm of kidney; Z90.5 Acquired absence of kidney
CPT/HCPCS: 99283; 51702; 86803; 87340; 87389

== ENCOUNTER 2024-12-16 18:28 | Inpatient (IN) | payer OTHER, SELFPAY ==
[2024-12-16] VITALS (16 sets, daily range): BP systolic 115–142; BP diastolic 58–95; BMI 24.8; BMI 21.0
--- NOTE | 2024-12-16 13:15 | PTCARENOTE ---
1315 Pt's Chronic Indwelling Coburn is draining yellow, cloudy foul smelling urine. Coburn exchanged for 24F. Once exchanged pt's now draining bloody urine with lots of clots. Coburn irrigated for several old and new blood clots. Once connected to
drainage bag, not much drainage coming out. Coburn exchanged again but for 3 way this time. 24F Coburn inserted without difficulty. CBI started. Drainage now blood tinged with tiny clots. CBI discontinued at 1530. Coburn draining clear without
clots. ENVIRONMENTAL [employer] made aware. Will continue to monitor.
[2024-12-16 13:21] LABS: % Basophils 0.2 % (0-2); % Eosinophils 0.5 % (0-6); % Immature Granulocytes 0.9 % (0-0.5); % Lymphocytes 13.4 % (20.5-51.1); % Monocytes 7.8 % (1.7-9.3); % Neutrophils 77.2 % (42.2-75.2); Absolute Eosinophils 0.1 10^3/uL (0-0.7); Absolute Immature Granulocytes 0.1 10^3/uL (0-0.05); Absolute Lymphocytes 1.3 10^3/uL (1.2-3.4); Absolute Monocytes 0.8 10^3/uL (0.1-0.6); Absolute Neutrophils 7.4 10^3/uL (1.4-6.5); Hematocrit 29.9 % (39.0-52.0); Hemoglobin 9.5 g/dL (13.0-18.0); Mean Corp Hgb Conc. 31.8 g/dL (33.0-37.0); Mean Corpuscular Hgb 31.5 pg (27.0-31.0); Mean Platelet Volume 9.8 fL (7.4-10.4); Nucleated Red Blood Cells % 0 % (-); Platelet Count 195 10^3/uL (130-400); Red Blood Cell Count 3.02 10^6/uL (4.70-6.10); Red Cell Dist. Width 16.1 % (11.5-14.5); White Blood Cell Count 9.6 10^3/uL (4.8-10.8)
[2024-12-16 13:32] LABS: Lactic Acid 1.3 mmol/L (0.7-2.0)
[2024-12-16 13:35] LABS: Urine Albumin 3+ (Neg - Trace); Urine Bilirubin Negative (Negative); Urine Character Slightly Cloudy (Clear); Urine Color Yellow; Urine Glucose Negative (Negative); Urine Ketone Negative (Negative); Urine Leukocyte 3+ (Negative); Urine Nitrite Negative (Negative); Urine Occult Blood 4+ (Negative); Urine Urobilinogen Negative (Neg - 1+)
[2024-12-16 13:37] LABS: ALT (SGPT) 17 U/L (0-50); AST (SGOT) 43 U/L (17-59); Albumin 3.9 g/dl (3.5-5.0); Alkaline Phosphatase 76 U/L (38-126); Blood Urea Nitrogen 59 mg/dl (9-20); Carbon Dioxide 21 mmol/L (22-30); Chloride 105 mmol/L (98-107); Estimated Creatinine Clearance 9 ml/min; Glucose 97 mg/dl (70-99); Potassium 5.3 mmol/L (3.5-5.1); Sodium 140 mmol/L (135-145); Total Bilirubin 1.4 mg/dl (0.2-1.3); Total Protein 6.7 g/dl (6.3-8.2); eGFR 9.45
--- NOTE | 2024-12-16 14:07 | ED.GENMED ---
History of Present Illness
General
Chief Complaint: Change in Mental Status
Source: patient
Exam Limitations: none
Time Seen by Provider: 12/16/24 13:19
Nursing documentation reviewed up to this point in time: agreed with
History of Present Illness
History of Present Illness:
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
with cloudy sediment and Driscoll catheter.
I spoke to the [facility] at [facility] who reports that when his daughter spoke to him on the phone sloop captain she felt that he was very confused. Med [facility] reports the patient is normally awake and alert x 3.
Nurse also reports that it is possible that pt has been taking his own meds on his on including Trazadone because pt was found today with bottles in his own room.
Patient is awake alert he is oriented to person place confused on time not exactly sure why he is here. He however has no complaints.
Prior to my exam nurse noted that patient had thick yellow sediment in the Driscoll catheter tubing. She changed it and reports there a lot of clots/bleeding in the driscoll bag.
Past History
Past History
ED Past Medical History: Other (Kidney cancer status post left nephrectomy, hypertension, hyperlipidemia, BPH)
ED Past Surgical History: Other (Left-sided nephrectomy, inguinal hernia repair, septoplasty)
Social History
Tobacco: Non-smoker
Alcohol: None
Drug: None
Personal:
Living: other
Review of Systems
Review of Systems
Allergies reviewed?: Yes
Unable to obtain full review of systems at this time due to: other (mild confusion )
Other source history: [facility]
All Other Systems: ROS reviewed and negative except as documented in HPI and ROS
Constitutional: Reports no symptoms; Denies fever
EENT: Reports no symptoms
Respiratory: Reports no symptoms
Cardiac: Reports no symptoms
ABD/GI: Reports no symptoms
: Reports other (Driscoll catheter draining cloudy thick urine as per nurse)
Musculoskeletal: Reports no symptoms
Neurological: Reports other (Increased confusion as per [facility] staff.)
Psychiatric: Reports no symptoms
Phy Exam
General Physical Exam
General Presentation: no apparent distress
General age: appears stated age
General Skin: warm and dry
General Mental: confused
General Hydration: appears well hydrated
Cardiovascular Exam
Cardiovascular Exam: regular rate/rhythm, no murmur and normal peripheral pulses
Pulmonary Exam
Pulmonary Exam: lungs clear and no respiratory distress
Genitourinary Exam Male
Exam Male: other (Driscoll catheter with gross hematuria)
Neurological Exam
Neurological Exam: alert and oriented x3
Musculoskeletal Exam
Musculoskeletal Exam: full ROM
Skin Exam
Skin Exam: normal color and warm/dry
Psychiatric Exam
Psychiatric Exam: normal mood/affect
Course
Orders/Labs/Results
Orders:
Orders
12/16/24 13:08
Complete Blood Count/With Diff Urgent
Comprehensive Metabolic Panel Urgent
Lactic Acid Urgent
TSH Urgent
Comment: ADD ON
Urinalysis Reflex To Culture Urgent
Date Specimen was Collected: 12/16/24
Time Specimen was Collected: 13:07
Urine Creatinine Urgent
Date Specimen was Collected: 12/16/24
Time Specimen was Collected: 13:07
Comment: ADD ON
Urine Microscopic Reflex Cult Urgent
Urine Sodium Urgent
Date Specimen was Collected: 12/16/24
Time Specimen was Collected: 13:07
Comment: ADD ON
Blood Culture Urgent
RUBINA Source: Blood/Venous
Specimen Description:
Urine Culture Urgent
RUBINA Source: U
Specimen Description:
Date Specimen was Collected: 12/16/24
Time Specimen was Collected: 13:07
12/16/24 14:27
COVID-19 Antigen Urgent
Source: Nasal Swab
Influenza A+B Rapid Molecular Urgent
RUBINA Source: Nasal Swab
Specimen Description:
12/16/24 Dinner
Potassium, 4 Gram
At Your Request: Limited Participation
Low Potassium: Sodium, 2 Gram
12/16/24 15:59
CT Head W/o Iv Contrast Urgent
Comment:
Reason For Exam: change in ms
12/16/24 16:07
Ciprofloxacin 400 mg/[id number] [Cipro 400 mg] 200 ml IV NOW
12/16/24 17:16
Electrocardiogram (*1) Stat
Reason for Study: Other
Other Reason for Exam: chest pain
EKG- Treatment ONCE
12/16/24 17:48
Sodium Zirconium Cyclosilicate [Lokelma] 10 gram PO NOW STA
12/16/24 17:51
Chest [CR Chest - 2 Views ] Urgent
Comment:
Reason For Exam: cough
12/16/24 18:03
Ondansetron Injectable [Zofran] 4 mg .ROUTE .STK-MED ONE
12/16/24 18:05
Ondansetron Injectable [Zofran] 4 mg IV NOW STA
12/16/24 18:13
Admit/Transfer Patient As Directed
Co-Sign Provider:
Level of Care: Inpatient admission
Assign to:: Telemetry
Physician / Group: Heri Goode
Diagnosis: Metabolic Encephalopathy
Reason for Telemetry: Arrhythmia
Date to Stop Telemetry: 12/19/24
Time to Stop Telemetry: 11:00
Reason for Hospitalization: Altered mental status, MONA on CKD 5
Expected length of stay greater than two midnights?: Yes
ELOS- Estimated Length of Stay in days: 3
I certify the patient meets the requirements for IP care: Yes
PRN Pain Medication Management As Directed
May give lesser potent ordered pain med per pt: Yes
preference::
Protocol:: Medication orders for pain may be administered in a
manner that supports deferring to patient preference
when the pt is:
- Requesting an ordered lesser potent pain medication.
Least to most potent pain medications are defined
as: acetaminophen < NSAID < tramadol < opioids
(morphine, oxycodone, hydromorphone).
- Requesting a lesser dose of the same medication IF
ORDERED.
- Requesting a less intrusive route of administration
if both routes are prescribed by the provider (PO <
IV).
12/16/24 18:15
Code Status As Directed
Resuscitation Status: Full Code
12/16/24 18:18
Add On- LAB Routine
Comments:: Urinalysis
Tests Added?: Urine Na and Urine Cr
US Kidneys and US Bladder [US Renal With Bladder] Routine
Comment:
Reason For Exam: MONA, r/o hydronephrosis of solitary kidney
12/16/24 18:19
NEPHROLOGY CONSULT Routine
Consulting Provider: Pamela Julian
Was physician already notified: Yes
Reason for consult: MONA on CKDV
12/16/24 19:53
Acetaminophen [Tylenol] 650 mg PO Q4HPRN PRN
Bisacodyl [Dulcolax] 10 mg RECTAL [id number] PRN
Docusate W/Senna [Senokot-S] 1 tablet PO BIDPRN PRN
Lactated Ringers [Lr] 1,000 ml IV 70 mls/hr
Midodrine [ProAmatine] 5 mg PO TIDPRN PRN
Ondansetron Injectable [Zofran] 4 mg IV Q6HPRN PRN
Polyethylene Glycol Powder [Miralax] 17 grams PO DAILYPRN PRN
12/16/24 19:53
Add On- LAB Routine
Tests Added?: TSH
Activity As Directed
Activity Level: Out of Bed-Early Mobility
Intake/ Output As Directed
Frequency: q12h
Vital Signs As Directed
Frequency: Per unit guidelines
Weight As Directed
Frequency: Daily
DX Deep Vein Thrombosis Video Routine
12/16/24 20:00
Heparin 5,000 units SC Q12
Miconazole Nitrate [Desenex/Mitrazol/Zeasorb] 1 applic TOPICAL BID
Pantoprazole [Protonix] 40 mg PO BID
12/16/24 22:00
Atorvastatin [Lipitor] 20 mg PO HS
12/17/24 06:00
Basic Metabolic Panel IN AM
Complete Blood Count/With Diff IN AM
Magnesium IN AM
Levothyroxine [Synthroid] 75 mcg PO DAILY@0600
12/17/24 08:00
Amlodipine [Norvasc] 5 mg PO DAILY
Aspirin Low Dose EC [Aspir Low (Enteric Coated)] 81 mg PO DAILY
Cholecalciferol (Vitamin D3) [VITAMIN D3 (cholecalciferol)] 50 mcg PO DAILY
Fenofibrate 145 [Tricor] 145 mg PO DAILY
Finasteride [Proscar] 5 mg PO Q48H
12/17/24 12:00
Tamsulosin [Flomax] 0.8 mg PO NOON
12/19/24 11:00
DC Protocol for Telemetry ONCE
Abnormal Lab Results
12/16/24
13:08
RBC 3.02 L 10^6/uL
(4.70-6.10)
Hgb 9.5 L g/dL
(13.0-18.0)
Hct 29.9 L %
(39.0-52.0)
MCV 99.0 H fL
(80.0-94.0)
MCH 31.5 H pg
(27.0-31.0)
MCHC 31.8 L g/dL
(33.0-37.0)
RDW 16.1 H %
(11.5-14.5)
Abs Immat Gran (auto) 0.1 H 10^3/uL
(0-0.05)
Absolute Neuts (auto) 7.4 H 10^3/uL
(1.4-6.5)
Absolute Monos (auto) 0.8 H 10^3/uL
(0.1-0.6)
Immature Gran % 0.9 H %
(0-0.5)
Neutrophils % 77.2 H %
(42.2-75.2)
Lymphocytes % 13.4 L %
(20.5-51.1)
Potassium 5.3 H mmol/L
(3.5-5.1)
Carbon Dioxide 21 L mmol/L
(22-30)
BUN 59 H mg/dl
(9-20)
Creatinine 5.6 H* mg/dL
(0.7-1.3)
Calcium 11.0 H mg/dl
(8.4-10.2)
Total Bilirubin 1.4 H mg/dl
(0.2-1.3)
Ur Occult Blood Reflex 4+ A
(Negative)
Leukocyte Esterase Rfl 3+ A
(Negative)
Urine RBC 16-20 A /HPF
(0-2)
Urine WBC (Reflex) 70-80 A /HPF
(0-5)
Urine Bacteria (Reflex) Moderate A
(Negative)
Urine Sodium 28 L mmol/L
(30-90)
Urine Albumin (Reflex) 3+ A
(Neg - Trace)
12/16/24 13:08
12/16/24 13:08
Vital Signs
Initial and Last Documented VS:
Initial Vital Signs
Temp Pulse Resp BP Pulse Ox
98.3 F 99 18 140/71 100
12/16/24 12:59 12/16/24 12:59 12/16/24 12:59 12/16/24 12:59 12/16/24 12:59
Last Documented Vital Signs
Temp Pulse Resp BP Pulse Ox
98.2 F 88 16 123/58 98
12/16/24 20:11 12/16/24 20:11 12/16/24 20:11 12/16/24 20:11 12/16/24 20:11
MDM/Problems Addressed
Differential Diagnosis Includes:
Not limited to UTI dehydration renal failure
MDM/Problems Addressed:
Patient is an 84-year-old male from the [facility] sent for evaluation of change in mental status. Patient as documented has a history of left-sided nephrectomy from renal carcinoma and does have end-stage renal disease. He has not started
dialysis yet nephrology is involved in patient's case and the plan is for future dialysis. Patient was noted to have cloudy urine with thick sediment in his Driscoll catheter bag this was changed and patient had obvious hematuria with clots afterward.
Three-way catheter was inserted. Patient has no fever and is a febrile here with a normal white count. He is awake and alert confused to month however answering questions and following commands. No acute findings on CAT scan. No neurological
deficits on exam. Patient was treated for UTI I did review previous results and IV Cipro was ordered. It was also noted the patient may be taking extra medication including trazodone which is on his bedside table at the [facility]. He however
has been awake alert here.
As documented his white count is normal his hemoglobin is he has creatinine is slightly worse at 5.6 his potassium minimally elevated 5.3 with no EKG changes dose of Lokelma ordered COVID flu negative will check a chest x-ray for admission purposes
however lungs are clear no audible cough.
Patient admitted to the hospital
X-ray was read as mild left lower lobe pneumonia this was discussed admitting hospitalist who will order appropriate antibiotics
*Critical Care Note
Total Time (30-74mins, 75-104mins- exclusive of procedures): Not Applicable
ED Attending Note
-
Portions of this chart may have been created with voice recognition software.� Occasional wrong word or��sound alike� substitutions may have occurred due to the inherent limitations of voice recognition software.
Discharge Plan
Departure
Patient Disposition: Admit
Date of Disposition: 12/16/24
Time of Disposition: 17:48
Admit to: Med/Surg
Admit to doctor: hospitalist
Presentation/result/management discussed w/ accepting MD/DO: Hospitalist
Patient with high blood pressure during this ER visit?: Yes
Condition: Fair
Covid-19: Not Applicable
Discharge Problem:
Altered mental status, Acute UTI, Acute renal insufficiency, Acute hyperkalemia
Interventions
Interventions:
*Risk Screen - Suicide Last Done: 12/16/24 12:56
*General Assessment Last Done: 12/16/24 12:57
*Neglect/Abuse Screening Last Done: 12/16/24 12:56
*ED- Fall Risk Assessment Last Done: 12/16/24 12:57
*ED COVID-19 Vaccine History Last Done: 12/16/24 12:57
*Nursing Disposition Last Done: 12/16/24 20:12
ED- Neurological Assessment Last Done: 12/16/24 13:02
ED Swallowing Screen Last Done: 12/16/24 18:23
Discharge Date and Time
Discharge Date/Time: 12/16/24 20:00
[2024-12-16 14:17] LABS: Urine Bacteria Moderate (Negative); Urine Red Blood Cell 16-20 /HPF (0-2); Urine Squamous Cell 0-2 /LPF (Few); Urine White Cell 70-80 /HPF (0-5)
[2024-12-16 14:54] LABS: COVID-19 Antigen Negative (Negative)
--- NOTE | 2024-12-16 15:30 | PTCARENOTE ---
CBI capped at 1530. Pt's urine is draining clear. No clots noted in Coburn at this time. BOAT DISPATCHER advised. Will continue to monitor.
[2024-12-16] MEDS: CIPRO 400 MG 200 IV (16:23)
[2024-12-16] MEDS: LOKELMA 10 GRAM PO (17:53)
[2024-12-16] MEDS: ZOFRAN 4 MG IV (18:05)
--- NOTE | 2024-12-16 18:10 | HPS.HSE ---
Addendum entered and electronically signed by Heri Goode DO 12/16/24 21:14:
CXR with signs of possible pneumonia and effusion. Will continue antibiotics with levaquin, renally dosed.
Original Note:
Family Physician
-
Family Physician: Kristine Bernal, DO
Chief Complaint
-
AMS
History of Present Illness
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
hypertension, H/O achalasia presenting to the hospital from nursing facility with change in mental status. Also noted to have cloudy urine sediment via Coburn catheter. His daughter was speaking with him on the phone today, prior to arrival, and
felt that he sounded very confused. Nursing staff at the facility mentions baseline is AAO x 3. The nurse at the facility did mention to the ED staff that the patient has been taking his own meds, including trazodone, as bottles were found in his
room today. Upon arrival was awake and alert but only oriented to person and place. Noted to have thick yellow sediment within his Coburn catheter tubing, Coburn catheter was exchanged and he developed hematuria with blood clots in Coburn bag. AFVSS
otherwise through ED course. ED labs with hemoglobin 9.5, MCV 99, normal WBC but neutrophilic predominance, potassium 5.3, BUN 59, creatinine 5.6, serum calcium 11.0, total bilirubin 1.4. Urinalysis with 4+ blood, 3+ leukocyte esterase, 70-80 WBC
per hpf, moderate bacteria. Respiratory viral panel was unremarkable. ECG with NSR, occasional PACs, but no ischemic findings. CT head ordered with final results pending, no signs of midline shift, mass effect, or ICH on my prelim read. Was
started on IV ciprofloxacin in the ED, after blood and urine cultures. Upon my evaluation, patient denies any complaints and states 'he is only here because his son does not want him to overdose.' Denied any dysuria or suprapubic discomfort.
States that he has not been drinking much fluids recently as well, feels like he is dehydrated
Medical History
Past Medical History
Past Medical History: Reports Other
Additional Past Medical History:
CKD stage V
Metastatic RCC
Bone and liver metastases
Chronic bladder outlet obstruction
Chronic dysphagia (GE stenosis, achalasia)
Hypothyroidism
BPH
Orthostasis
Dyslipidemia
H/O hypertension
H/O duodenal ulcer
Past Surgical History: Reports Other
Additional Past Surgical History:
Left nephrectomy
Gastroesophageal junction dilation (09/27/2024)
Parathyroidectomy
Social History
Unable to obtain full social history at this time due to: Acuity
Tobacco: Non-smoker
Alcohol: None
Drug: None
Family History
Family History: Not pertinent
Allergies / Home Medications
Allergies reflects when Allergies were last updated in [facility].
Home Medications with original date entered in [facility]
Allergy/Medication List:
Allergies
Allergy/AdvReac Type Severity Reaction Status Date / Time
Penicillins Allergy Unknown- Verified 12/16/24 16:06
tolerates
cephalosporins
Sulfa (Sulfonamide Allergy Unknown Verified 12/16/24 12:57
Antibiotics)
Home Medications
acetaminophen 325 mg tablet 650 mg PO Q6HPRN PRN mild pain 05/12/24
aspirin 81 mg tablet,delayed release 81 mg PO DAILY Blood Clot Prevention/Tx 05/12/24
atorvastatin 20 mg tablet 20 mg PO HS High Cholesterol 05/12/24
cholecalciferol (vitamin D3) 50 mcg (2,000 unit) tablet (Vitamin D3) 50 mcg PO DAILY Supplement 05/12/24
levothyroxine 75 mcg tablet 75 mcg PO DAILY Thyroid 05/12/24
tamsulosin 0.4 mg capsule 0.8 mg PO NOON Urinary Issue 05/12/24
trazodone 100 mg tablet 100 mg PO HS 05/12/24
dutasteride 0.5 mg capsule (Avodart) 0.5 mg PO Q48H Urinary Issue 08/27/24
pantoprazole 40 mg tablet,delayed release (Protonix) 40 mg PO BID GERD 09/23/24
midodrine 5 mg tablet 5 mg PO TIDPRN PRN dizziness or sbp<100 10/17/24
polyethylene glycol 3350 17 gram oral powder packet 17 g PO DAILYPRN PRN constipation #30 ea 10/26/24
amlodipine 5 mg tablet 5 mg PO DAILY 12/16/24
fenofibrate nanocrystallized 145 mg tablet 145 mg PO DAILY 12/16/24
miconazole nitrate 2 % topical powder (Zeasorb AF) 1 applic topical BID 12/16/24
tramadol 50 mg tablet 50 mg PO Q12H 12/16/24
Review of Systems
-
Unable to obtain full review of systems at this time due to: Other (AMS)
Physical Exam
Vital Signs
Vital Signs
Temp Pulse Resp BP Pulse Ox
98.3 F 100 21 142/72 100
12/16/24 12:59 12/16/24 18:00 12/16/24 18:00 12/16/24 18:00 12/16/24 17:45
Physical Exam
General: Well Developed, Well Nourished and No Apparent Distress
HEENT: NormoCephalic, Anicteric, Moist mucous membranes, Atraumatic and PERRLA
Respiratory: Clear and Non Labored Respirations; No Accessory Resp Muscle Use
Cardiac: S1/S2 and Regular Rhythm; No Murmur, Rub, Gallop or Peripheral Edema
GI: Soft, Non Tender, Non Distended and Normal Bowel Sounds
Genito-urinary: Turbid Urine and Coburn
Musculoskeletal: No Clubbing and No Cyanosis
Skin: Warm and Dry; No Rash
Neuro: Awake, Alert, Oriented (x1-2), Nonfocal/grossly intact and Cranial Nerves Intact
Psych: Calm
Laboratory Results
-
12/16/24 13:08
12/16/24 13:08
Laboratory Results
Lactic Acid 1.3 mmol/L (0.7-2.0) 12/16/24 13:08
Total Bilirubin 1.4 mg/dl (0.2-1.3) H 12/16/24 13:08
AST 43 U/L (17-59) 12/16/24 13:08
ALT 17 U/L (0-50) 12/16/24 13:08
Alkaline Phosphatase 76 U/L (38-126) 12/16/24 13:08
Data Reviewed
-
CT Scan: Image Personally Visualized and interpreted and Discussed with Nurse
Lab Data: Labs Reviewed by me and Discussed with Physician (ED attending)
Impression/Plan
-
#Acute metabolic encephalopathy
-Differential diagnosis include polypharmacy, unintentional overdose > infection related
-Was noted to have positive UA and sediment in urine though seems dehydrated rather than infected
-Per nursing at his facility was found to have follow-up trazodone in his room, question extra dosing
-CT head without any acute findings upon my read; low suspicion for CVA without focal deficits
-AAO x 2 upon arrival to the ED, has remained hemodynamically stable and without fever
-Hold trazodone, tramadol, other sedating agents
-Trend CBC and temperature curve off antibiotics
-Monitor mental status clinically
#Positive urinalysis
#Chronic Coburn catheter
#BPH with chronic bladder outlet obstruction
-Noted to have positive UA, apparent urine sediment noted in Coburn bag; no fever or leukocytosis
-All blood counts higher than previous, has hypercalcemia as well; suspect significant dehydration
-Denies any symptoms of UTI including dysuria, suprapubic tenderness, fevers
-Suspect that this is predominantly asymptomatic bacteriuria related to chronic Coburn
-Was started on IV Levaquin upon arrival, will hold further antibiotics
-Trend CBC and temperature curve off antibiotics, follow urine culture
-Continue with home tamsulosin and dutasteride
#Gross hematuria with blood clots
-Occurred in the ED after Coburn exchange, started with irrigation and improved urine quality
-Ordered ultrasound to assess for hydronephrosis and urinary obstruction
-Monitor for recurrence, consider holding DVT prophylaxis if clots recurrent
-Trend CBC, hemoglobin goal >7
-consult urology
#MONA on CKD stage V
#S/p left nephrectomy
#AoCKD
#Dehydration
-Likely prerenal, suspect significant degree of dehydration
-Baseline creatinine in the mid 4's, creatinine here 5.6
-Will start IV fluids and avoid nephrotoxic agents strictly
-Nephrology consult, may require initiation on dialysis this hospital stay
#Hypercalcemia
#H/O parathyroidectomy
-Upon arrival serum calcium 11.0 with albumin 3.9; likely dehydrated
-No signs or symptoms of hypercalcemia, previous labs with low calcium
-Will start IV fluids and trend BMP; continue with home vitamin D
-Consider iPTH, PTH RP, vitamin D levels if not improved
-If increasing significantly may require calcitonin/pamidronate
#Chronic dysphagia
#H/O GE junction stenosis s/p esophageal dilation
#H/O achalasia
-Had esophageal dilation in August 2024 with GI
-Currently on chronically modified diet (mechanical soft)
-Does have increased risk for esophageal cancer with achalasia history
-Will continue home diet and monitor for aspiration
#Orthostatic hypotension
#Primary hypertension
-No known history of hypertensive systemic disease
-Home antihypertensive regimen with amlodipine 5 mg daily
-Home medications also clued midodrine 5 mg as needed for SBP <100 or symptomatic dizziness
-Blood pressure stable as of now
#Metastatic renal cell carcinoma
#Liver and bone metastases
#Immunosuppressed from chemotherapy
-Home regimen includes chemotherapy with Cabometyx 20 mg daily, immunotherapy every 2 weeks
-Follows with Dr. Platt from oncology
#Hypothyroidism
-Unclear etiology, home regimen includes levothyroxine 75 mcg daily
-No signs or symptoms of thyroid dysfunction at this time
-Check TSH for completeness
#GERD
-History of multiple esophageal peristaltic pathologies but no history of Falcon's esophagus or erosive disease
-Home regimen includes pantoprazole 40 mg twice daily
-No red flag symptoms at this time, continue home modified diet
#Dyslipidemia
-No known ASCVD history, home medications include moderate intensity statin
-Home meds also include daily aspirin for primary prevention
DVT prophylaxis: SQ heparin
Diet: Standard renal (low K, low Na)
CODE STATUS: Full code
Disposition: Admit to telemetry
[2024-12-16 19:34] LABS: Urine Sodium 28 mmol/L (30-90)
[2024-12-16] MEDS: LR 1000 IV (20:54)
[2024-12-16 20:59] LABS: TSH 1.62 uIU/ml (0.47-4.68)
[2024-12-16] MEDS: DESENEX/MITRAZOL/ZEASORB 1 APPLIC TOPICAL (21:17)
[2024-12-16] MEDS: HEPARIN 5000 UNITS SC (21:17)
[2024-12-16] MEDS: PROTONIX 40 MG PO (21:18)
[2024-12-16] MEDS: LIPITOR 20 MG PO (21:18)
[2024-12-16] MEDS: FLUSH (NSS) 1 FLUSH IV ×2 (22:55→23:02)
[2024-12-16] MEDS: STERILE WATER FOR INJECTION 10 ML IV (22:55)
[2024-12-16] MEDS: ZITHROMAX 255 MG IV (22:55)
[2024-12-16] MEDS: ROCEPHIN 1000 MG IV (22:55)
[2024-12-17 03:28] VITALS: BP 119/57
[2024-12-17] MEDS: SYNTHROID 75 MCG PO (05:43)
[2024-12-17 06:00] VITALS: BMI 21.0
[2024-12-17 07:21] LABS: % Basophils 0.2 % (0-2); % Eosinophils 0.2 % (0-6); % Immature Granulocytes 0.6 % (0-0.5); % Lymphocytes 6.3 % (20.5-51.1); % Monocytes 6.5 % (1.7-9.3); % Neutrophils 86.2 % (42.2-75.2); Absolute Immature Granulocytes 0.1 10^3/uL (0-0.05); Absolute Lymphocytes 0.5 10^3/uL (1.2-3.4); Absolute Monocytes 0.6 10^3/uL (0.1-0.6); Absolute Neutrophils 7.3 10^3/uL (1.4-6.5); Hematocrit 25.6 % (39.0-52.0); Hemoglobin 8.2 g/dL (13.0-18.0); Mean Corpuscular Hgb 31.5 pg (27.0-31.0); Mean Corpuscular Volume 98.5 fL (80.0-94.0); Mean Platelet Volume 10.2 fL (7.4-10.4); Nucleated Red Blood Cells % 0 % (-); Platelet Count 153 10^3/uL (130-400); White Blood Cell Count 8.5 10^3/uL (4.8-10.8)
[2024-12-17 07:24] VITALS: BP 110/59
[2024-12-17 07:58] LABS: Blood Urea Nitrogen 57 mg/dl (9-20); Calcium 10.1 mg/dl (8.4-10.2); Carbon Dioxide 21 mmol/L (22-30); Chloride 106 mmol/L (98-107); Estimated Creatinine Clearance 9 ml/min; Glucose 91 mg/dl (70-99); Magnesium 1.5 mg/dl (1.6-2.3); Potassium 4.7 mmol/L (3.5-5.1); Sodium 139 mmol/L (135-145); eGFR 9.87
[2024-12-17] MEDS: ASPIR LOW (ENTERIC COATED) 81 MG PO (09:43)
[2024-12-17] MEDS: TRICOR 145 MG PO (09:43)
[2024-12-17] MEDS: DESENEX/MITRAZOL/ZEASORB 1 APPLIC TOPICAL ×2 (09:44→22:10)
[2024-12-17] MEDS: NORVASC 5 MG PO (09:44)
[2024-12-17] MEDS: VITAMIN D3 (cholecalciferol) 50 MCG PO (09:44)
[2024-12-17] MEDS: HEPARIN 5000 UNITS SC ×2 (09:45→22:23)
[2024-12-17] MEDS: PROTONIX 40 MG PO ×2 (09:45→22:23)
[2024-12-17] MEDS: PROSCAR 5 MG PO (09:45)
--- NOTE | 2024-12-17 11:10 | W.PN.HOSP.TC ---
Today's Communication/Plan
-
Hold sedating agents
Antibiotics for pneumonia
Aspiration precautions
Monitor for recurrent hematuria
Nephrology and urology to see
Assessment / Plan
Assessment / Plan
#Acute metabolic encephalopathy
-Differential diagnosis include polypharmacy, unintentional overdose > infection related
-Was noted to have positive UA and sediment in urine though seems dehydrated rather than infected
-Per nursing at his facility was found to have follow-up trazodone in his room, question extra dosing
-CT head without any acute findings upon my read; CXR with left lower lobe opacity
-AAO x 1-2 upon arrival to the ED, has remained hemodynamically stable
-Hold trazodone, tramadol, other sedating agents
-Continue therapy for CAP as below for now
-Monitor mental status clinically
#Community-acquired pneumonia
-Chest x-ray with opacity in the left lower lung field, no fevers or leukocytosis, no symptoms
-Did present with acute metabolic encephalopathy, started on CTX and azithromycin empirically
-Not requiring any supplemental oxygen, does not have cough nor any sputum production
-Will continue with antibiotics for now, trend CBC and temperature curve, monitor mental status
-Low threshold to DC antibiotics
#Positive urinalysis
#Chronic Coburn catheter
#BPH with chronic bladder outlet obstruction
-Noted to have positive UA, apparent urine sediment noted in Coburn bag; no fever or leukocytosis
-All blood counts higher than previous, has hypercalcemia as well; suspect significant dehydration
-Denies any symptoms of UTI including dysuria, suprapubic tenderness, fevers
-Suspect that this is predominantly asymptomatic bacteriuria related to chronic Coburn
-Continue with home tamsulosin and dutasteride
#Gross hematuria with blood clots
-Occurred in the ED after Coburn exchange, started with irrigation and improved urine quality
-Ordered ultrasound to assess for hydronephrosis and urinary obstruction
-Monitor for recurrence, consider holding DVT prophylaxis if clots recurrent
-Trend CBC, hemoglobin goal >7
-consult urology
#MONA on CKD stage V
#S/p left nephrectomy
#AoCKD
#Dehydration
-Likely prerenal, suspect significant degree of dehydration
-Baseline creatinine in the mid 4's, creatinine here 5.6
-Will start IV fluids and avoid nephrotoxic agents strictly
-Nephrology consult, may require initiation on dialysis this hospital stay
-Renal function improving with IVF, will continue fluids and trend BMP
#Hypercalcemia
#H/O parathyroidectomy
-Upon arrival serum calcium 11.0 with albumin 3.9; likely dehydrated
-No signs or symptoms of hypercalcemia, previous labs with low calcium
-Resolved with IVF, likely from dehydration
#Chronic dysphagia
#H/O GE junction stenosis s/p esophageal dilation
#H/O achalasia
-Had esophageal dilation in August 2024 with GI
-Currently on chronically modified diet (mechanical soft)
-Does have increased risk for esophageal cancer with achalasia history
-Will continue home diet and monitor for aspiration
#Orthostatic hypotension
#Primary hypertension
-No known history of hypertensive systemic disease
-Home antihypertensive regimen with amlodipine 5 mg daily
-Home medications also clued midodrine 5 mg as needed for SBP <100 or symptomatic dizziness
-Blood pressure stable as of now
#Metastatic renal cell carcinoma
#Liver and bone metastases
#Immunosuppressed from chemotherapy
-Home regimen includes chemotherapy with Cabometyx 20 mg daily, immunotherapy every 2 weeks
-Follows with Dr. Platt from oncology
#Hypothyroidism
-Unclear etiology, home regimen includes levothyroxine 75 mcg daily
-No signs or symptoms of thyroid dysfunction at this time
-Check TSH for completeness
#GERD
-History of multiple esophageal peristaltic pathologies but no history of Falcon's esophagus or erosive disease
-Home regimen includes pantoprazole 40 mg twice daily
-No red flag symptoms at this time, continue home modified diet
#Dyslipidemia
-No known ASCVD history, home medications include moderate intensity statin
-Home meds also include daily aspirin for primary prevention
DVT prophylaxis: SQ heparin
Diet: Soft and Bite-sized, renal (low K, low Na)
CODE STATUS: Full code
Anticipated Discharge: > 48 hours
Subjective/Interval History
-
Date of Service: December 17, 2024
Objective Data
-
Labs:
Laboratory Results
12/17/24
06:44
WBC 8.5
Hgb 8.2 L
Hct 25.6 L
Plt Count 153 D
Sodium 139
Potassium 4.7
Chloride 106
Carbon Dioxide 21 L
BUN 57 H
Creatinine 5.4 H*
Glucose 91
Calcium 10.1
Vital Signs:
Vital Signs
Temp Pulse Resp BP Pulse Ox
98.7 F 83 17 110/59 99
12/17/24 07:24 12/17/24 07:24 12/17/24 07:24 12/17/24 07:24 12/17/24 07:24
I&O
12/16/24 12/17/24 12/18/24
06:59 06:59 06:59
Intake Total 200 / 200
Output Total 700 / 700
Balance -500 / -500
[2024-12-17 11:18] VITALS: BP 105/58
[2024-12-17 12:09] LABS: Procalcitonin 1.06 ng/ml (0.0-0.25)
--- NOTE | 2024-12-17 12:38 | CONS.URO ---
Consultation
-
Performing Provider: Peffer
Reason for Consultation: Hematuria
Medical History
History of Present Illness
84M with metastatic renal cell carcinoma s/p nephrectomy
Urinary retention with indwelling driscoll catheter managed by Dr. Angela last seen 05/2024
Admitted for AMS/acute metabolic encephalopathy, MONA
His catheter was changed in the ED and he had a brief episode of gross hematuria which quickly cleared
Hematuria remains resolved today
Renal US shows no obstruction, some nonobstructing renal stones
Allergies/Home Medications
Allergies
Allergy/AdvReac Type Severity Reaction Status Date / Time
Penicillins Allergy Unknown- Verified 12/16/24 16:06
tolerates
cephalosporins
Sulfa (Sulfonamide Allergy Unknown Verified 12/16/24 12:57
Antibiotics)
Home Medications
�Medication �Instructions �Recorded �Confirmed �Type
acetaminophen 325 mg tablet 650 mg PO Q6HPRN PRN mild pain 05/12/24 12/16/24 History
aspirin 81 mg tablet,delayed 81 mg PO DAILY Blood Clot 05/12/24 12/16/24 History
release Prevention/Tx
atorvastatin 20 mg tablet 20 mg PO HS High Cholesterol 05/12/24 12/16/24 History
cholecalciferol (vitamin D3) 50 50 mcg PO DAILY Supplement 05/12/24 12/16/24 History
mcg (2,000 unit) tablet (Vitamin
D3)
levothyroxine 75 mcg tablet 75 mcg PO DAILY Thyroid 05/12/24 12/16/24 History
tamsulosin 0.4 mg capsule 0.8 mg PO NOON Urinary Issue 05/12/24 12/16/24 History
trazodone 100 mg tablet 100 mg PO HS Sleep 05/12/24 12/16/24 History
dutasteride 0.5 mg capsule 0.5 mg PO Q48H Urinary Issue 08/27/24 12/16/24 History
(Avodart)
pantoprazole 40 mg tablet,delayed 40 mg PO BID GERD 09/23/24 12/16/24 History
release (Protonix)
midodrine 5 mg tablet 5 mg PO TIDPRN PRN dizziness or 10/17/24 12/16/24 History
sbp<100
polyethylene glycol 3350 17 gram 17 g PO DAILYPRN PRN constipation 10/26/24 12/16/24 Rx
oral powder packet #30 ea
amlodipine 5 mg tablet 5 mg PO DAILY Blood Pressure 12/16/24 12/16/24 History
fenofibrate nanocrystallized 145 145 mg PO DAILY High Cholesterol 12/16/24 12/16/24 History
mg tablet
miconazole nitrate 2 % topical 1 applic topical BID Skin Issues 12/16/24 12/16/24 History
powder (Zeasorb AF)
tramadol 50 mg tablet 50 mg PO Q12H Pain 12/16/24 12/16/24 History
Physical Exam
Vital Signs
Vital Signs
Temp Pulse Resp BP Pulse Ox
98.8 F 83 17 105/58 98
12/17/24 11:18 12/17/24 11:18 12/17/24 11:18 12/17/24 11:18 12/17/24 11:18
Lab / Testing Results
Laboratory Results
12/17/24 06:44
12/17/24 06:44
Physical Exam
General: Well Developed
GI: Soft and Non Tender
Genito-urinary: No Costovertebral Tend, Clear Urine and Driscoll Catheter
Neuro: AO x 3
Psych: Calm and Intact Judgement
Assessment / Plan
-
84M with metastatic RCC s/p nephrectomy, admitted with AMS, MONA, encephalopathy
Urology consulted for hematuria after driscoll change
Brief episode of gross hematuria related to catheter trauma during cath change resolved spontaneously - no intervention needed
Recommend outpatient follow up with Dr. Angela for management/surveillance of nonobstructing kidney stones in solitary kidney and chronic urinary retention
Please call with any further questions
[2024-12-17] MEDS: FLOMAX 0.8 MG PO (13:35)
--- NOTE | 2024-12-17 13:38 | W.CON.NEPH ---
Consultation
-
Date/Time Consultation Requested: 12/16/241834
Date/Time Consultation Performed: 12/17/24 1415
Requesting Provider: Heri Rivera
Performing Provider: Pamela Matos
Reason for Consultation: MELONY with CKD
Medical History
-
Chief Complaint: AMS
History of Present Illness:
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
flomax, finasteride and chronic Driscoll catheter, chronic dysphagia 2/2 GE junction stenosis s/p esophageal dilation (09/27/24), hypothyroidism, orthostasis on midodrine, hypertension on Amlodipine, H/O achalasia presenting to the hospital from nursing
facility with change in mental status. Also noted to have cloudy urine sediment via Driscoll catheter.
The nurse at the facility did mention to the ED staff that the patient has been taking his own meds, including trazodone, as bottles were found in his room today. Noted to have thick yellow sediment within his Driscoll catheter tubing, Driscoll catheter
was exchanged and he developed hematuria with blood clots in Driscoll bag since improved. ED labs with hemoglobin 9.5, potassium 5.3, BUN 59, creatinine 5.6(baseline cr high 4 range), serum calcium 11. With IVF cr improved to 5.4, hb down to 8.2. He
reports no cp or sob, abd pain. no n/v. Appetite is low for a while and not new. Ge also treated for LL PNA. Offers no fever or cough.
Past Medical History
CKD stage V
Metastatic RCC
Bone and liver metastases
Chronic bladder outlet obstruction
Chronic dysphagia (GE stenosis, achalasia)
Hypothyroidism
BPH
Orthostasis
Dyslipidemia
H/O hypertension
H/O duodenal ulcer
Past Surgical History: Other (Left nephrectomy Gastroesophageal junction dilation (09/27/2024) Parathyroidectomy)
Social History
Tobacco: Former Smoker
Alcohol: None
Living: Assisted Living
Family History
Family History: Not Pertinent
Allergies / Home Medications
Allergy/AdvReac Type Severity Reaction Status Date / Time
Penicillins Allergy Unknown- Verified 12/16/24 16:06
tolerates
cephalosporins
Sulfa (Sulfonamide Allergy Unknown Verified 12/16/24 12:57
Antibiotics)
�Medication �Instructions �Recorded �Confirmed �Type
acetaminophen 325 mg tablet 650 mg PO Q6HPRN PRN mild pain 05/12/24 12/16/24 History
aspirin 81 mg tablet,delayed 81 mg PO DAILY Blood Clot 05/12/24 12/16/24 History
release Prevention/Tx
atorvastatin 20 mg tablet 20 mg PO HS High Cholesterol 05/12/24 12/16/24 History
cholecalciferol (vitamin D3) 50 50 mcg PO DAILY Supplement 05/12/24 12/16/24 History
mcg (2,000 unit) tablet (Vitamin
D3)
levothyroxine 75 mcg tablet 75 mcg PO DAILY Thyroid 05/12/24 12/16/24 History
tamsulosin 0.4 mg capsule 0.8 mg PO NOON Urinary Issue 05/12/24 12/16/24 History
trazodone 100 mg tablet 100 mg PO HS Sleep 05/12/24 12/16/24 History
dutasteride 0.5 mg capsule 0.5 mg PO Q48H Urinary Issue 08/27/24 12/16/24 History
(Avodart)
pantoprazole 40 mg tablet,delayed 40 mg PO BID GERD 09/23/24 12/16/24 History
release (Protonix)
midodrine 5 mg tablet 5 mg PO TIDPRN PRN dizziness or 10/17/24 12/16/24 History
sbp<100
polyethylene glycol 3350 17 gram 17 g PO DAILYPRN PRN constipation 10/26/24 12/16/24 Rx
oral powder packet #30 ea
amlodipine 5 mg tablet 5 mg PO DAILY Blood Pressure 12/16/24 12/16/24 History
fenofibrate nanocrystallized 145 145 mg PO DAILY High Cholesterol 12/16/24 12/16/24 History
mg tablet
miconazole nitrate 2 % topical 1 applic topical BID Skin Issues 12/16/24 12/16/24 History
powder (Zeasorb AF)
tramadol 50 mg tablet 50 mg PO Q12H Pain 12/16/24 12/16/24 History
Review of Systems
-
All other systems: Negative unless noted
Physical Exam
Vital Signs
Vital Signs
Temp Pulse Resp BP Pulse Ox
98.8 F 83 17 105/58 98
12/17/24 11:18 12/17/24 11:18 12/17/24 11:18 12/17/24 11:18 12/17/24 11:18
Lab Results
WBC 8.5 10^3/uL (4.8-10.8) 12/17/24 06:44
RBC 2.60 10^6/uL (4.70-6.10) L 12/17/24 06:44
Hgb 8.2 g/dL (13.0-18.0) L 12/17/24 06:44
Hct 25.6 % (39.0-52.0) L 12/17/24 06:44
Plt Count 153 10^3/uL (130-400) D 12/17/24 06:44
Sodium 139 mmol/L (135-145) 12/17/24 06:44
Potassium 4.7 mmol/L (3.5-5.1) 12/17/24 06:44
Chloride 106 mmol/L (98-107) 12/17/24 06:44
Carbon Dioxide 21 mmol/L (22-30) L 12/17/24 06:44
BUN 57 mg/dl (9-20) H 12/17/24 06:44
Creatinine 5.4 mg/dL (0.7-1.3) H* 12/17/24 06:44
eGFR 9.87 12/17/24 06:44
Glucose 91 mg/dl (70-99) 12/17/24 06:44
Calcium 10.1 mg/dl (8.4-10.2) 12/17/24 06:44
Albumin 3.9 g/dl (3.5-5.0) 12/16/24 13:08
Physical Exam
General: Awake, Alert, Oriented, AOx3, No Distress and Nontoxic
HEENT: Anicteric, Conjunctivae Clear, Ear/Nose Intact, Facial Symmetry and No JVD
Respiratory: Clear, Normal Excursion and Nonlabored Respirations
Cardiac: S1/S2 and Regular Rate/Rhythm
Breast: Deferred by me
Abdomen: Soft, Nontender and Nondistended
Musculoskeletal: No Cyanosis and Edema (trace)
Skin: No Rash
Neuro: Nonfocal/Grossly Intact
Psych: Insight/judgement good and Appropriate
Assessment/Plan
-
Assessment:
MELONY with CKD5-Dr Iverson
Acute metabolic encephalopathy
Community-acquired pneumonia
Chronic Driscoll catheter
BPH with chronic bladder outlet obstruction
Gross hematuria with blood clots-Occurred in the ED after Driscoll exchange
S/p left nephrectomy 1984
AoCKD
Hypercalcemia
H/O parathyroidectomy
Chronic dysphagia
H/O GE junction stenosis s/p esophageal dilation
H/O achalasia-Had esophageal dilation in August 2024 with GI
Orthostatic hypotension
Primary hypertension
Metastatic renal cell carcinoma
Liver and bone metastases
Immunosuppressed from chemotherapy-Home regimen includes chemotherapy with Cabometyx 20 mg daily, immunotherapy every 2 weeks
-Follows with Dr. Platt from oncology
Hypothyroidism
GERD
Dyslipidemia
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
Plan
Melony with CKD-cr slowly improving to 5.4
hematuria post recent driscoll exchange-cleared now
renal US shows solitary kidney non obst stone
may have prerenal component
ok for gentle IVF till po intake is better
BP stable with known orthostatic hypotension
hold Amlodipine
calcium better post IVF
replace mg
f/u h/h, check fe panel
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
has AVF surg also scheduled in December
no emergent need of HD, hopefully not needed this admit
d/w pt in detail
[2024-12-17 14:28] LABS: Iron 37 ug/dl (49-181)
[2024-12-17] MEDS: MAGNESIUM SULFATE 50 IV (14:30)
[2024-12-17 14:37] LABS: Percent Saturation 14 % (20-50); Total Iron Binding Capacity 247 ug/dl (261-462)
[2024-12-17] MEDS: LR 1000 IV (14:40)
[2024-12-17 15:29] VITALS: BP 109/52
[2024-12-17 19:35] VITALS: BP 109/47
[2024-12-17] MEDS: LIPITOR 20 MG PO (22:23)
[2024-12-17] MEDS: FLUSH (NSS) 1 FLUSH IV ×2 (22:24→22:25)
[2024-12-17] MEDS: STERILE WATER FOR INJECTION 10 ML IV (22:28)
[2024-12-17] MEDS: ZITHROMAX 255 MG IV (22:28)
[2024-12-17] MEDS: ROCEPHIN 1000 MG IV (22:28)
[2024-12-17 23:10] VITALS: BP 121/54
[2024-12-18 03:55] VITALS: BP 105/54
[2024-12-18 06:00] VITALS: BMI 21.6
[2024-12-18 07:01] VITALS: BP 106/53
[2024-12-18] MEDS: SYNTHROID 75 MCG PO (07:41)
[2024-12-18 08:20] LABS: % Basophils 0.4 % (0-2); % Eosinophils 1.1 % (0-6); % Immature Granulocytes 0.9 % (0-0.5); % Lymphocytes 16.4 % (20.5-51.1); % Monocytes 9.8 % (1.7-9.3); % Neutrophils 71.4 % (42.2-75.2); Absolute Eosinophils 0.1 10^3/uL (0-0.7); Absolute Lymphocytes 0.7 10^3/uL (1.2-3.4); Absolute Monocytes 0.4 10^3/uL (0.1-0.6); Absolute Neutrophils 3.2 10^3/uL (1.4-6.5); Hematocrit 22.9 % (39.0-52.0); Hemoglobin 7.6 g/dL (13.0-18.0); Mean Corp Hgb Conc. 33.2 g/dL (33.0-37.0); Mean Corpuscular Hgb 31.8 pg (27.0-31.0); Mean Corpuscular Volume 95.8 fL (80.0-94.0); Mean Platelet Volume 10.4 fL (7.4-10.4); Nucleated Red Blood Cells % 0 % (-); Platelet Count 136 10^3/uL (130-400); Red Blood Cell Count 2.39 10^6/uL (4.70-6.10); Red Cell Dist. Width 15.9 % (11.5-14.5); White Blood Cell Count 4.5 10^3/uL (4.8-10.8)
[2024-12-18 08:55] LABS: Blood Urea Nitrogen 54 mg/dl (9-20); Calcium 9.9 mg/dl (8.4-10.2); Carbon Dioxide 20 mmol/L (22-30); Chloride 107 mmol/L (98-107); Estimated Creatinine Clearance 10 ml/min; Glucose 101 mg/dl (70-99); Potassium 4.3 mmol/L (3.5-5.1); Sodium 139 mmol/L (135-145); eGFR 10.33
[2024-12-18] MEDS: VITAMIN D3 (cholecalciferol) 50 MCG PO (10:39)
[2024-12-18] MEDS: TRICOR 145 MG PO (10:39)
[2024-12-18] MEDS: PROTONIX 40 MG PO ×2 (10:39→22:04)
[2024-12-18] MEDS: ASPIR LOW (ENTERIC COATED) 81 MG PO (10:39)
[2024-12-18] MEDS: HEPARIN 5000 UNITS SC ×2 (10:40→22:04)
[2024-12-18] MEDS: SODIUM BICARBONATE 650 MG PO ×2 (10:40→22:04)
[2024-12-18] MEDS: DESENEX/MITRAZOL/ZEASORB 1 APPLIC TOPICAL ×2 (10:40→22:04)
[2024-12-18] MEDS: LR 1000 IV (10:41)
[2024-12-18 11:00] VITALS: BP 101/53
--- NOTE | 2024-12-18 11:09 | CM ---
Patient seen at bedside
IA completed-spoke with carroll Thibodeaux
Lives alone at [facility]
LM for [place] at [facility] [phone]
PLOF: walker, motorized w/c for longer distances
DME: walker, wheelchair, motorized wheelchair
Current with [facility], denies SNF
PCP: Kristine Bernal
PHARMACY: [facility]
PLAN: [facility], when medically stable.
[2024-12-18 11:34] VITALS: BMI 21.6
[2024-12-18] MEDS: FLOMAX 0.8 MG PO (12:48)
--- NOTE | 2024-12-18 13:10 | PTOTSP ---
Speech Therapy Evaluation:
Pt presents with functional oropharyngeal swallow at bedside. Pt with known esophageal component with GE junction stenosis requiring dilation and achalasia. Pt currently with LLL PNA, however he remains on room air. WBC mildly decreased at 4.5. Risk
of aspiration elevated given altered mental status.
Recommend:
1. Continue regular solids and thin liquids
2. Medications in applesauce per pt preference
3. Strict reflux precautions
4. PLANT PHYSIOLOGIST to follow to monitor diet and determine if pt would benefit from instrumental assessment
--- NOTE | 2024-12-18 14:27 | W.PN.NEPH.PH ---
Today's Communication / Plan
-
d/c IVF and encourage po intake
Assessment/Plan
-
Assessment:
MELONY with CKD5-Dr Iverson
Acute metabolic encephalopathy
Community-acquired pneumonia
Chronic Driscoll catheter
BPH with chronic bladder outlet obstruction
Gross hematuria with blood clots-Occurred in the ED after Driscoll exchange
S/p left nephrectomy 1984
AoCKD
Hypercalcemia
H/O parathyroidectomy
Chronic dysphagia
H/O GE junction stenosis s/p esophageal dilation
H/O achalasia-Had esophageal dilation in August 2024 with GI
Orthostatic hypotension
Primary hypertension
Metastatic renal cell carcinoma
Liver and bone metastases
Immunosuppressed from chemotherapy-Home regimen includes chemotherapy with Cabometyx 20 mg daily, immunotherapy every 2 weeks
-Follows with Dr. Platt from oncology
Hypothyroidism
GERD
Dyslipidemia
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
Plan
Melony with CKD-cr slowly improving to 5.2
hematuria post recent driscoll exchange-cleared now
renal US shows solitary kidney non obst stone
may have prerenal component
ok to d/c IVF
BP stable with known orthostatic hypotension
hold Amlodipine
f/u h/h, prn transfusion, fe sat only 14%, start IV fe course
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
has AVF surg also scheduled in December
no emergent need of HD, hopefully not needed this admit
d/w pt in detail
-
-
Date of Service: December 18, 2024
CC / HPI / ROS
-
Chief Complaint:
MELONY with CKD5
History of Present Illness:
cr slightly better at 5.2
BP stable off meds
k normal
Review of Systems:
no cp or sob
no cough
no n.v
appetite is poor chronically
Labs
-
Labs:
WBC 4.5 10^3/uL (4.8-10.8) L 12/18/24 06:37
RBC 2.39 10^6/uL (4.70-6.10) L 12/18/24 06:37
Hgb 7.6 g/dL (13.0-18.0) L 12/18/24 06:37
Hct 22.9 % (39.0-52.0) L 12/18/24 06:37
Plt Count 136 10^3/uL (130-400) 12/18/24 06:37
Sodium 139 mmol/L (135-145) 12/18/24 06:37
Potassium 4.3 mmol/L (3.5-5.1) 12/18/24 06:37
Chloride 107 mmol/L (98-107) 12/18/24 06:37
Carbon Dioxide 20 mmol/L (22-30) L 12/18/24 06:37
BUN 54 mg/dl (9-20) H 12/18/24 06:37
Creatinine 5.2 mg/dL (0.7-1.3) H* 12/18/24 06:37
eGFR 10.33 12/18/24 06:37
Glucose 101 mg/dl (70-99) H 12/18/24 06:37
Calcium 9.9 mg/dl (8.4-10.2) 12/18/24 06:37
Albumin 3.9 g/dl (3.5-5.0) 12/16/24 13:08
Physical Exam
-
Vital Signs:
Vital Signs
Temp Pulse Resp BP Pulse Ox
97.5 F 72 16 101/53 99
12/18/24 11:00 12/18/24 11:00 12/18/24 11:00 12/18/24 11:00 12/18/24 11:00
Cardiovascular:: Regular rate and rhythm
Respiratory:: Bilateral: CTA
Lung Excursion:: Normal
Abdomen:: Nontender and Soft
Bowel Sounds:: Normal
Extremity Edema:: None: Bilateral:
Driscoll Catheter: Yes
--- NOTE | 2024-12-18 14:32 | W.PN.HOSP.TC ---
Addendum entered and electronically signed by Franklin Escobedo MD 12/19/24 13:48:
Acute metabolic encephalopathy now resolved. This was likely secondary to acute infectious process with pneumonia.
Pneumonia community-acquired complete total 5-day course of Rocephin and azithromycin
Pleural effusion appears loculated follow-up chest ultrasound if large enough will consult IR for thoracentesis
Asymptomatic bacteriuria will/contamination in setting of chronic Coburn without evidence of dysuria urinary frequency. Continue tamsulosin posterolateral
MONA on CKD with a peak creatinine of 5.6 now downtrending at 4.9. Avoid nephrotoxins hypotension. Monitor urinary output
PT rec SNF. will notify CM to begin working on dispo
Original Note:
Today's Communication/Plan
-
Continue azithromycin and ceftriaxone. Follow BMP
Assessment / Plan
Assessment / Plan
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
orthostasis, BPH, hypertension, H/O achalasia, who presents with acute metabolic encephalopathy, community-acquired pneumonia, asymptomatic bacteriuria, nonanion gap metabolic acidosis
Acute metabolic encephalopathy:
Likely secondary to pneumonia. Question of polypharmacy/improper medication use
UA with pyuria, leuks, RBCs. Urine culture negative.
CT head without acute abnormalities
Continue to hold trazodone, tramadol, other sedating agents.
- Appears to be resolved/at baseline.
- Continue ABX for CAP
- Monitor mental status clinically
Community-acquired pneumonia:
Chest x-ray with mild left lower lobe PNA. possible trace parapneumonic effusion.
- Check L chest US
- Cipro started in ED. switched to ceftriaxone/azithromycin. Continue ceftriaxone + azithromycin, abx day 3
- Without respiratory symptoms.
Asymptomatic bacteriuria, chronic Coburn catheter:
BPH with chronic bladder outlet obstruction
- Noted to have positive UA, apparent urine sediment noted in Coburn bag; no fever or leukocytosis. Urine cx negative
- Continue with home tamsulosin and dutasteride
Gross hematuria:
Secondary to Coburn exchange. Resolved with no intervention.
Renal US shows no obstruction, some nonobstructing renal stones
- Appreciate urology recs. Outpt follow up with Dr. Angela for management/surveillance of nonobstructing kidney stones in solitary kidney and chronic urinary retention
Anemia:
Of chronic disease, secondary to CKD V
- Follow CBC
MONA on CKD stage V:
S/p left nephrectomy
Baseline creatinine 4, 5.6 on arrival. 5.2 today
-Secondary to dehydration, Cr improving with IVF. Discontinue IVF
-Baseline creatinine in the mid 4's, creatinine here 5.6
-Avoid nephrotoxic agents strictly, renally dose meds
-Appreciate nephro input
Nonanion gap metabolic acidosis:
- Secondary to MONA
- Follow BMP
Hypercalcemia:
H/O parathyroidectomy
-Upon arrival serum calcium 11.0 with albumin 3.9; likely dehydrated
-No signs or symptoms of hypercalcemia, previous labs with low calcium
-Resolved with IVF, likely from dehydration
Anxiety/depression:
Patient shares that he has been depressed since his passed 3 years ago. Describes racing thoughts.
- Consider Remeron upon discharge given
- Recommend outpatient PCP follow-up
Chronic dysphagia:
H/O GE junction stenosis s/p esophageal dilation:
H/O achalasia:
-Had esophageal dilation in August 2024 with GI
-Speech therapy evaluation with recommendations for regular solids and thin liquids, meds in applesauce, aspiration precautions.
Orthostatic hypotension:
Primary hypertension:
-No known history of hypertensive systemic disease
-Home antihypertensive regimen with amlodipine 5 mg daily
-Home medications also clued midodrine 5 mg as needed for SBP <100 or symptomatic dizziness
-Blood pressure stable as of now
#Metastatic renal cell carcinoma
#Liver and bone metastases
#Immunosuppressed from chemotherapy
-Home regimen includes chemotherapy with Cabometyx 20 mg daily, immunotherapy every 2 weeks
-Follows with Dr. Platt from oncology
Hypothyroidism:
-Unclear etiology, home regimen includes levothyroxine 75 mcg daily
-TSH normal
GERD:
-Continue pantoprazole 40 mg twice daily
Dyslipidemia:
-No known ASCVD history, home medications include moderate intensity statin
-Home meds also include daily aspirin for primary prevention
DVT prophylaxis: SQ heparin
Diet: regular/thin, renal (low K, low Na)
CODE STATUS: Full code
Anticipated Discharge: Within 24 hours
Subjective/Interval History
-
Date of Service: December 18, 2024
Objective Data
-
Labs:
Laboratory Results
12/18/24
06:37
WBC 4.5 L
Hgb 7.6 L
Hct 22.9 L
Plt Count 136
Sodium 139
Potassium 4.3
Chloride 107
Carbon Dioxide 20 L
BUN 54 H
Creatinine 5.2 H*
Glucose 101 H
Calcium 9.9
Vital Signs:
Vital Signs
Temp Pulse Resp BP Pulse Ox
97.5 F 72 16 101/53 99
12/18/24 11:00 12/18/24 11:00 12/18/24 11:00 12/18/24 11:00 12/18/24 11:00
I&O
12/17/24 12/18/24 12/19/24
06:59 06:59 06:59
Intake Total 200 / 200 360 / 360
Output Total 700 / 700 1000 / 1000
Balance -500 / -500 -640 / -640
Review of Systems
-
History Source: Patient
Constitutional: Reports No Appetite
Respiratory: Denies Cough or Trouble Breathing
Cardiac: Denies Chest Pain
Abdomen/GI: Denies Abdominal Pain, Nausea or Vomiting
Psych: Reports Depressed
Physical Exam
-
General: No Apparent Distress, Comfortable and Appears Chronically Ill
HEENT: Normocephalic, Atraumatic, Moist Mucous Membranes and Anicteric
Respiratory: Non Labored Respirations and Decreased Breath Sounds (LLL); Negative Wheezes, Rales, Rhonchi or Crackles
Cardiac: Regular Rhythm and S1/S2; Negative Murmur, Rub or Calf Tenderness
GI: Soft, Nontender, Nondistended, Normal Bowel Sounds and Other (Right upper quadrant mass)
Genito-urinary: Costovertebral Angle Tend, Clear Urine and Coburn
Musculoskeletal: No Clubbing, No Cyanosis, Edema, Right Lower Extrem and Edema, Left Lower Extrem
Skin: Warm and Dry
Neuro: Awake, Alert and Oriented
Psych: Depressed and Anxious
[2024-12-18 15:03] VITALS: BP 89/45
[2024-12-18] MEDS: FERRLECIT 110 MG IV (15:17)
[2024-12-18] MEDS: ProAmatine 5 MG PO (15:20)
[2024-12-18] MEDS: LR IV (16:28)
[2024-12-18 19:00] VITALS: BP 109/55
[2024-12-18] MEDS: ZITHROMAX 255 MG IV (22:04)
[2024-12-18] MEDS: LIPITOR 20 MG PO (22:04)
[2024-12-18] MEDS: STERILE WATER FOR INJECTION 10 ML IV (22:05)
[2024-12-18] MEDS: ROCEPHIN 1000 MG IV (22:05)
[2024-12-18 23:00] VITALS: BP 98/52
[2024-12-19] VITALS (8 sets, daily range): BP systolic 96–113; BP diastolic 46–66; PULSE 77; O2SAT 95–99; BMI 21.7
[2024-12-19] MEDS: SYNTHROID 75 MCG PO (05:29)
[2024-12-19 08:16] LABS: % Basophils 0.4 % (0-2); % Eosinophils 3.2 % (0-6); % Immature Granulocytes 0.8 % (0-0.5); % Lymphocytes 22.3 % (20.5-51.1); % Monocytes 11.4 % (1.7-9.3); % Neutrophils 61.9 % (42.2-75.2); Absolute Eosinophils 0.2 10^3/uL (0-0.7); Absolute Lymphocytes 1.1 10^3/uL (1.2-3.4); Absolute Monocytes 0.6 10^3/uL (0.1-0.6); Absolute Neutrophils 3.1 10^3/uL (1.4-6.5); Hemoglobin 7.2 g/dL (13.0-18.0); Mean Corp Hgb Conc. 32.7 g/dL (33.0-37.0); Mean Corpuscular Hgb 31.7 pg (27.0-31.0); Mean Corpuscular Volume 96.9 fL (80.0-94.0); Mean Platelet Volume 10.4 fL (7.4-10.4); Nucleated Red Blood Cells % 0 % (-); Platelet Count 139 10^3/uL (130-400); Red Blood Cell Count 2.27 10^6/uL (4.70-6.10); Red Cell Dist. Width 16.1 % (11.5-14.5); White Blood Cell Count 5.1 10^3/uL (4.8-10.8)
[2024-12-19] MEDS: ProAmatine 5 MG PO ×2 (08:41→23:42)
[2024-12-19] MEDS: SENOKOT-S 1 TABLET PO (08:41)
[2024-12-19] MEDS: ASPIR LOW (ENTERIC COATED) 81 MG PO (08:42)
[2024-12-19] MEDS: DESENEX/MITRAZOL/ZEASORB 1 APPLIC TOPICAL ×2 (08:42→21:16)
[2024-12-19] MEDS: PROSCAR 5 MG PO (08:42)
[2024-12-19] MEDS: SODIUM BICARBONATE 650 MG PO ×2 (08:42→21:14)
[2024-12-19] MEDS: VITAMIN D3 (cholecalciferol) 50 MCG PO (08:42)
[2024-12-19] MEDS: TRICOR 145 MG PO (08:42)
[2024-12-19] MEDS: PROTONIX 40 MG PO ×2 (08:42→21:13)
--- NOTE | 2024-12-19 08:43 | W.PN.HOSP.TC ---
Addendum entered and electronically signed by Franklin Escobedo MD 12/19/24 14:03:
Acute metabolic encephalopathy now resolved. This was likely secondary to acute infectious process with pneumonia.
Pneumonia community-acquired complete total 5-day course of Rocephin and azithromycin
Pleural effusion appears loculated follow-up chest ultrasound if large enough will consult IR for thoracentesis
Asymptomatic bacteriuria will/contamination in setting of chronic Coburn without evidence of dysuria urinary frequency. Continue tamsulosin posterolateral
MONA on CKD with a peak creatinine of 5.6 now downtrending at 4.9. Avoid nephrotoxins hypotension. Monitor urinary output
PT rec SNF. will notify CM to begin working on dispo
Original Note:
Today's Communication/Plan
-
Respiratory status stable. pending PT/OT consult for placement to SNF vs. home. Will d/c on abx to complete total 7d course.
Assessment / Plan
Assessment / Plan
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
orthostasis, BPH, hypertension, H/O achalasia, who presents with acute metabolic encephalopathy, community-acquired pneumonia, asymptomatic bacteriuria, nonanion gap metabolic acidosis
#Ambulatory dysfunction
#Weakness
- PT/OT consult. Possible dc back to assisted living vs. SNF
#Acute metabolic encephalopathy, likely secondary to pneumonia.
Question of polypharmacy/improper medication use
- UA with pyuria, leuks, RBCs. Urine culture negative.
- CT head without acute abnormalities
- Continue to hold trazodone, tramadol, other sedating agents.
- Appears to be resolved/at baseline.
- Continue ABX for CAP
- Monitor mental status clinically
#Community-acquired pneumonia
- Chest x-ray with mild left lower lobe PNA. possible trace parapneumonic effusion.
- Without respiratory symptoms
- Cipro started in ED. switched to ceftriaxone/azithromycin. Continue ceftriaxone + azithromycin, abx day 4
- L Chest US showing minimal L pleural effusion
#Asymptomatic bacteriuria, chronic Coburn catheter
- h/o BPH with chronic bladder outlet obstruction
- Noted to have positive UA, apparent urine sediment noted in Coburn bag; no fever or leukocytosis. Urine cx negative
- C/w home tamsulosin and dutasteride
#Gross hematuria, likely traumatic secondary to Coburn exchange (resolved)
- Renal US shows no obstruction, some nonobstructing renal stones
- Outpt follow up with Dr. Angela for management/surveillance of nonobstructing kidney stones in solitary kidney and chronic urinary retention
#Anemia, multifactorial
- Likely secondary to chronic disease, secondary to CKD V and Iron deficiency
- Ferritin high, TIBC low, total iron/%sat low.
- Follow CBC
- transfuse if hgb <7
#MONA on CKD stage V, likely pre-renal (secondary to dehydration)
- Baseline creatinine 4, 5.6 on arrival.
- Cr improved with IVF -- d/c IVF
- c/t avoid nephrotoxic agents strictly, renally dose meds
- Appreciate nephro input
- downtrending retanned leather roller, 4.9 today
#Non-Anion gap metabolic acidosis
- Secondary to MONA
- Follow BMP
#Hypercalcemia (resolved)
#H/O parathyroidectomy
-Upon arrival serum calcium 11.0 with albumin 3.9; likely dehydrated
-No signs or symptoms of hypercalcemia, previous labs with low calcium
-Resolved with IVF, likely from dehydration
#Anxiety/depression
Patient shares that he has been depressed since his passed 3 years ago. Describes racing thoughts.
- Consider Remeron upon discharge given
- Recommend outpatient PCP follow-up
#Chronic dysphagia
#h/o GE junction stenosis s/p esophageal dilation
#h/o achalasia
- Had esophageal dilation in August 2024 with GI
- Speech therapy evaluation with recommendations for regular solids and thin liquids, meds in applesauce, aspiration precautions.
#Orthostatic hypotension
Primary hypertension:
-No known history of hypertensive systemic disease
-Home antihypertensive regimen with amlodipine 5 mg daily
-Home medications also clued midodrine 5 mg as needed for SBP <100 or symptomatic dizziness
-Blood pressure stable as of now
#Metastatic renal cell carcinoma
#Liver and bone metastases
#Immunosuppressed from chemotherapy
-Home regimen includes chemotherapy with Cabometyx 20 mg daily, immunotherapy every 2 weeks
-Follows with Dr. Platt from oncology
#Hypothyroidism
- Unclear etiology, home regimen includes levothyroxine 75 mcg daily
- TSH normal
#GERD
- Continue pantoprazole 40 mg twice daily
#Dyslipidemia
-No known ASCVD history, home medications include moderate intensity statin
-Home meds also include daily aspirin for primary prevention
#Moderate Protein Calorie Malnutrition - Pts weight previous admission listed as 158 lbs (10/17) reflective of a 17 lb (11%) weight loss in two months, significant. Encouraged small frequent meals and snacks.
#Stage II pressure injury (Coccyx), POA - dry and intact, adhesive foam placed.
DVT prophylaxis: SQ heparin
Diet: regular/thin, renal (low K, low Na)
CODE STATUS: Full code
Anticipated Discharge: Within 24 hours
Subjective/Interval History
-
Date of Service: December 19, 2024
No sob, pleurisy, cp, fevers, or chills. Having weakness of his RLE which is not new.
Objective Data
-
Labs:
Laboratory Results
12/19/24
07:34
WBC 5.1
Hgb 7.2 L
Hct 22.0 L
Plt Count 139
Sodium Pending
Potassium Pending
Chloride Pending
Carbon Dioxide Pending
BUN Pending
Creatinine Pending
Glucose Pending
Calcium Pending
Vital Signs:
Vital Signs
Temp Pulse Resp BP Pulse Ox
97.3 F 71 14 98/66 98
12/19/24 07:46 12/19/24 07:46 12/19/24 07:46 12/19/24 07:46 12/19/24 07:46
I&O
12/18/24 12/19/24 12/20/24
06:59 06:59 06:59
Intake Total 360 / 360 720 / 720
Output Total 1000 / 1000 875 / 875
Balance -640 / -640 -155 / -155
Review of Systems
-
History Source: Patient
Constitutional: Reports No Symptoms
EENT: Reports No Symptoms Reported
Respiratory: Reports No Symptoms
Cardiac: Reports No Symptoms
Abdomen/GI: Reports No Symptoms
Genitourinary: Reports No Symptoms
Musculoskeletal: Reports Muscle Weakness
Neuro: Reports Weakness; Denies Dizzy or Numbness
Physical Exam
-
General: Well Developed, Well Nourished, No Apparent Distress and Comfortable
HEENT: Normocephalic, Atraumatic, Moist Mucous Membranes, Nose Appears Normal and Ears Appear Normal
Respiratory: Crackles (LLL crackles. R lobe clear) and Non Labored Respirations; Negative Wheezes or Rhonchi
Cardiac: Regular Rhythm and S1/S2; Negative Murmur or Rub
GI: Soft, Nontender, Nondistended and Normal Bowel Sounds
Musculoskeletal: No Clubbing, No Cyanosis and No Edema
Skin: Warm, Dry and IV Access / Catheter Site
Neuro: Awake, Alert and Oriented
Psych: Calm
[2024-12-19] MEDS: HEPARIN 5000 UNITS SC ×2 (08:44→21:13)
[2024-12-19 08:45] LABS: Blood Urea Nitrogen 55 mg/dl (9-20); Calcium 9.9 mg/dl (8.4-10.2); Carbon Dioxide 22 mmol/L (22-30); Chloride 108 mmol/L (98-107); Estimated Creatinine Clearance 10 ml/min; Glucose 105 mg/dl (70-99); Magnesium 2.1 mg/dl (1.6-2.3); Potassium 4.1 mmol/L (3.5-5.1); Sodium 139 mmol/L (135-145); eGFR 11.09
[2024-12-19] MEDS: FLOMAX 0.8 MG PO (11:44)
--- NOTE | 2024-12-19 12:29 | CM ---
Addendum entered by Leilani Ham 12/19/24 16:11:
PT/OT rec SNF
Call placed to [facility] & left message to see if they will accept back at [facility].
Spoke with Meaghan daughter in law, Family would like him to go back to [facility] with SHAWN Perez
Options reviewed with SNF with patient/family. Will get back to CM
Patient has an outpatient appt on Friday 12/22 for fistula for HD.
If SNF - CM will need to obtain ins auth
PLAN: Await call back from [facility] at [facility]
Original Note:
PT/OT ordered
await recs
chest US completed
Patient resides at [facility] Updated Marina from [facility]
PLAN: Await PT/OT recs
--- NOTE | 2024-12-19 13:12 | PN.CDI ---
CDI
- -
CDI:
Physician Documentation Request
Admit Date: 12/16/24 18:28
Dear Doctor Gregg/Resident,
Please review the following and provide your response in the progress notes.
Clinical Indicators:
Pt admitted with MONA on CKD V/possible PNA /Metabolic Encephalopathy
Documented per nursing wound care assessment 12/16/24, Present on admission coccyx ,pressure injury stage 2 ...treatment provided adhesive foam....'
Physician documentation of the type and location of wounds is required for compliant documentation. Based on the above clinical findings and your assessment, please provide the following in your progress note:
1. Location of the ulcer/wound, including laterality.
2. Type (etiology) of ulcer/wound:
- Pressure (decubitus) ulcer
- Non-pressure ulcer
- Other ( please specify)
Use of terms such as suspected, likely, concern for, or probable (associated with a specific diagnosis that is being evaluated, monitored, or treated as if it exists) are acceptable and can be coded in the inpatient setting, when documented at the
time of discharge.
Thank you,
Chiqui Villalba RN
CDI Specialist
[place] [facility]
Please use your independent medical judgment in providing your response.
*Source: National Pressure Ulcer Advisory Panel (NPUAP)
--- NOTE | 2024-12-19 13:18 | PN.CDI ---
CDI
- -
CDI:
Physician Documentation Request
Admit Date: 12/16/24 18:28
Dear Doctor Gregg/Resident ,
Please review the following and provide your response in the progress notes.
Clinical Indicators:
Pt admitted with MONA on CKD V/possible PNA /Metabolic Encephalopathy
Nutrition consult 12/18, ' CBW: 141 lbs 15.643 oz BMI 21.6 normal range (12/18). Pts weight previous admission listed as 158 lbs (2) reflective of a 17 lb (11%) weight loss in two months, significant. Encouraged small frequent meals and snacks.
RD to add nepro daily to diet orders. With weight loss of > 7.5% in three months, < 75% estimated needs > 1 month pt meets AND/ASPEN criteria for moderate protein calorie malnutrition of chronic illness....'
Based on the above information and your assessment, which of the following most accurately represents the patient's nutritional status?
Moderate protein calorie Malnutrition
Other (please specify)
[place] Criteria (ACP Hospitalist 2017)
2 or more criteria must be present for either
non severe or severe malnutrition
Note that the criteria differs related to the
presence of an acute or chronic illness
Acute Illness Chronic Illness
Energy Intake Non Severe: <75% for >7 days Non Severe: <75% for >1 month
Severe: <50% for >5 days Severe: <75% for >1 month
Weight Loss Non Severe: 1-2% over 1 week Non Severe: 5% over 1 month
5% over 1 month 7.5% over 3 months
7.5% over 3 months 10% over 6 months
1 year N/A 20% over 1 year
Severe: >2% over 1 week Severe: >5% over 1 month
>5% over 1 month >7.5% over 3 months
>7.5% over 3 months >10% over 6 months
1 year N/A >20% over 1 year
Body Fat Non Severe: Mild Decrease Non Severe: Mild Loss
Severe: Moderate Decrease Severe: Severe Loss
Muscle Mass Non Severe: Mild Decrease Non Severe: Mild Loss
Severe: Moderate Decrease Severe: Severe Loss
Fluid Accumulation Non Severe: Mild Accumulation Non Severe: Mild Accumulation
Severe: Moderate to severe Severe: Moderate to severe
accumulation accumulation
Reduced Shellacker Strength Non Severe: N/A Non Severe: N/A
Severe: Measurably reduced Severe: Measurably reduced
Additional criteria that can be used to Determine if Mild or Moderate Malnutrition (Merck Manual 2018)
Mild Moderate Severe
Albumin gm/dl <3.0 gm/dl <2.5 gm/dl <2.0 gm/dl
Pre Albumin mg/dl <15 gm/dl <10 mg/dl <5.0 mg/dl
BMI <18.5 <17 <16
Use of terms such as suspected, likely, concern for, or probable (associated with a specific diagnosis that is being evaluated, monitored, or treated as if it exists) are acceptable and can be coded in the inpatient setting, when documented at the
time of discharge.
Thank you,
Chiqui Villalba RN
CDI Specialist
[place] [facility]
Please use your independent medical judgment in providing your response.
[2024-12-19] MEDS: FERRLECIT 110 MG IV (13:23)
--- NOTE | 2024-12-19 15:18 | W.PN.NEPH.PH ---
Today's Communication / Plan
-
Follow BMP
Holding antihypertensives
As needed midodrine
Creatinine at baseline
Assessment/Plan
-
Assessment:
MELONY with CKD5-Dr Iverson
Acute metabolic encephalopathy
Community-acquired pneumonia
Chronic Driscoll catheter
BPH with chronic bladder outlet obstruction
Gross hematuria with blood clots-Occurred in the ED after Driscoll exchange
S/p left nephrectomy 1984
AoCKD
Hypercalcemia
H/O parathyroidectomy
Chronic dysphagia
H/O GE junction stenosis s/p esophageal dilation
H/O achalasia-Had esophageal dilation in August 2024 with GI
Orthostatic hypotension
Primary hypertension
Metastatic renal cell carcinoma
Liver and bone metastases
Immunosuppressed from chemotherapy-Home regimen includes chemotherapy with Cabometyx 20 mg daily, immunotherapy every 2 weeks
-Follows with Dr. Platt from oncology
Hypothyroidism
GERD
Dyslipidemia
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
Plan
Melony with CKD-cr slowly improving to 4.9
hematuria post recent driscoll exchange-cleared now
renal US shows solitary kidney non obst stone
BP stable with known orthostatic hypotension
holding Amlodipine , as needed midodrine provided for blood pressures
f/u h/h, prn transfusion, fe sat only 14%, start IV fe course
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
has AVF surg also scheduled in December
no emergent need of HD
d/w pt in detail
-
-
Date of Service: December 19, 2024
CC / HPI / ROS
-
Chief Complaint:
MELONY with CKD5
History of Present Illness:
cr slightly better at 4.9
BP stable off meds
k normal
Review of Systems:
no cp or sob
no cough
no n.v
appetite is poor chronically
Labs
-
Labs:
WBC 5.1 10^3/uL (4.8-10.8) 12/19/24 07:34
RBC 2.27 10^6/uL (4.70-6.10) L 12/19/24 07:34
Hgb 7.2 g/dL (13.0-18.0) L 12/19/24 07:34
Hct 22.0 % (39.0-52.0) L 12/19/24 07:34
Plt Count 139 10^3/uL (130-400) 12/19/24 07:34
Sodium 139 mmol/L (135-145) 12/19/24 07:34
Potassium 4.1 mmol/L (3.5-5.1) 12/19/24 07:34
Chloride 108 mmol/L (98-107) H 12/19/24 07:34
Carbon Dioxide 22 mmol/L (22-30) 12/19/24 07:34
BUN 55 mg/dl (9-20) H 12/19/24 07:34
Creatinine 4.9 mg/dL (0.7-1.3) H* 12/19/24 07:34
eGFR 11.09 12/19/24 07:34
Glucose 105 mg/dl (70-99) H 12/19/24 07:34
Calcium 9.9 mg/dl (8.4-10.2) 12/19/24 07:34
Albumin 3.9 g/dl (3.5-5.0) 12/16/24 13:08
Physical Exam
-
Vital Signs:
Vital Signs
Temp Pulse Resp BP Pulse Ox
97.7 F 76 14 113/59 97
12/19/24 15:08 12/19/24 15:08 12/19/24 15:08 12/19/24 15:08 12/19/24 15:08
Cardiovascular:: Regular rate and rhythm
Respiratory:: Bilateral: CTA
Lung Excursion:: Normal
Abdomen:: Nontender and Soft
Bowel Sounds:: Normal
Extremity Edema:: None: Bilateral:
Driscoll Catheter: Yes
--- NOTE | 2024-12-19 16:15 | TRANSFER ---
Pt transferred from 319-1 to 325 via bed. Pt oriented to room, no needs at this time. Call salas within reach.
[2024-12-19] MEDS: ROCEPHIN 1000 MG IV (21:14)
[2024-12-19] MEDS: STERILE WATER FOR INJECTION 10 ML IV (21:14)
[2024-12-19] MEDS: LIPITOR 20 MG PO (21:14)
[2024-12-19] MEDS: ZITHROMAX 255 MG IV (21:16)
[2024-12-19] MEDS: MELATONIN 5 MG PO (21:55)
[2024-12-20 03:45] VITALS: BP 91/33
[2024-12-20] MEDS: ProAmatine 5 MG PO (05:02)
[2024-12-20] MEDS: SYNTHROID 75 MCG PO (05:02)
[2024-12-20 05:49] VITALS: BMI 21.4
[2024-12-20 06:26] LABS: % Basophils 0.4 % (0-2); % Eosinophils 3.1 % (0-6); % Lymphocytes 23.6 % (20.5-51.1); % Monocytes 11.8 % (1.7-9.3); % Neutrophils 60.1 % (42.2-75.2); Absolute Eosinophils 0.2 10^3/uL (0-0.7); Absolute Immature Granulocytes 0.1 10^3/uL (0-0.05); Absolute Lymphocytes 1.2 10^3/uL (1.2-3.4); Absolute Monocytes 0.6 10^3/uL (0.1-0.6); Absolute Neutrophils 3.1 10^3/uL (1.4-6.5); Hematocrit 24.2 % (39.0-52.0); Hemoglobin 7.9 g/dL (13.0-18.0); Mean Corp Hgb Conc. 32.6 g/dL (33.0-37.0); Mean Corpuscular Hgb 31.6 pg (27.0-31.0); Mean Corpuscular Volume 96.8 fL (80.0-94.0); Mean Platelet Volume 10.2 fL (7.4-10.4); Nucleated Red Blood Cells % 0 % (-); Platelet Count 141 10^3/uL (130-400); Red Cell Dist. Width 15.9 % (11.5-14.5); White Blood Cell Count 5.1 10^3/uL (4.8-10.8)
[2024-12-20 06:55] LABS: Blood Urea Nitrogen 54 mg/dl (9-20); Calcium 10.3 mg/dl (8.4-10.2); Carbon Dioxide 21 mmol/L (22-30); Chloride 109 mmol/L (98-107); Estimated Creatinine Clearance 12 ml/min; Glucose 108 mg/dl (70-99); Potassium 4.2 mmol/L (3.5-5.1); Sodium 142 mmol/L (135-145); eGFR 12.62
[2024-12-20 07:17] VITALS: BP 120/62
[2024-12-20] MEDS: TRICOR 145 MG PO (08:33)
[2024-12-20] MEDS: PROTONIX 40 MG PO ×2 (08:34→21:09)
[2024-12-20] MEDS: ASPIR LOW (ENTERIC COATED) 81 MG PO (08:34)
[2024-12-20] MEDS: HEPARIN 5000 UNITS SC ×2 (08:34→21:08)
[2024-12-20] MEDS: SODIUM BICARBONATE 650 MG PO ×2 (08:35→21:09)
[2024-12-20] MEDS: VITAMIN D3 (cholecalciferol) 50 MCG PO (08:35)
--- NOTE | 2024-12-20 09:41 | CM ---
Addendum entered by Leilani Ham 12/20/24 12:56:
Met with patient - discussed PT rec SNF - states to speak with his son
Spoke with son Carlos Eduardo again - he prefers patient to return to [facility] with Chris
I discussed numerous calls placed to the DON to inquire if they will accept back since PT rec SNF
Son states he will place a call to her.
Original Note:
Call placed again to [facility] DON at [facility] [phone]- await call back to see if they will accept back to [facility] - PT rec SNF - referral placed in careport to [facility] [address]. options discussed with son/dil - they prefer
him to return to [facility] with Chris - discussed that is the decision of facility & CM has left message with [facility].
Patient does have an outpatient appt for fistula placement on 12/22 per family.
If SNF placement - will need to obtain auth
PLAN: SNF vs. Return to [facility]
--- NOTE | 2024-12-20 10:06 | W.PN.HOSP.TC ---
Addendum entered and electronically signed by Franklin Escobedo MD 12/20/24 15:43:
Acute metabolic encephalopathy now resolved. This was likely secondary to acute infectious process with pneumonia.
Pneumonia community-acquired complete total 5-day course of Rocephin and azithromycin
Pleural effusion chest ultrasound confirmed but small therefore, unable to obtain thora
Asymptomatic bacteriuria will/contamination in setting of chronic Coburn without evidence of dysuria urinary frequency. Continue tamsulosin posterolateral
MONA on CKD with a peak creatinine of 5.6 now downtrending at 4.9. Avoid nephrotoxins hypotension. Monitor urinary output.
Outpatient follow up with vascular surgery for AVF formation eval
PT rec SNF. will notify CM to begin working on dispo
Original Note:
Today's Communication/Plan
-
c/w Abx
pending SNF authorization
Assessment / Plan
Assessment / Plan
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
orthostasis, BPH, hypertension, H/O achalasia, who presents with acute metabolic encephalopathy, community-acquired pneumonia, asymptomatic bacteriuria, nonanion gap metabolic acidosis
#Ambulatory dysfunction
#Weakness
- PT/OT consult.
- Ongoing authorization discussion for SNF
#Acute metabolic encephalopathy, likely secondary to pneumonia.
Question of polypharmacy/improper medication use
- UA with pyuria, leuks, RBCs. Urine culture negative.
- CT head without acute abnormalities
- Continue to hold trazodone, tramadol, other sedating agents.
- Appears to be resolved/at baseline. C/t monitor mental status clinically
- Continue abx
#Community-acquired pneumonia
- Chest x-ray with mild left lower lobe PNA. possible trace parapneumonic effusion.
- Remains without respiratory symptoms
- Cipro started in ED. switched to ceftriaxone/azithromycin. Continue ceftriaxone + azithromycin, abx day 5
- L Chest US showing minimal L pleural effusion. No need for intervention or tap at this time
#Asymptomatic bacteriuria, chronic Coburn catheter
- h/o BPH with chronic bladder outlet obstruction
- Noted to have positive UA, apparent urine sediment noted in Coburn bag; no fever or leukocytosis. Urine cx negative
- C/w home tamsulosin and dutasteride
#Gross hematuria, likely traumatic secondary to Coburn exchange (resolved)
- Renal US shows no obstruction, some nonobstructing renal stones
- Outpt follow up with Dr. Angela for management/surveillance of nonobstructing kidney stones in solitary kidney and chronic urinary retention
#Anemia, multifactorial
- Likely secondary to chronic disease, secondary to CKD V and Iron deficiency
- Ferritin high, TIBC low, total iron/%sat low.
- Follow CBC
- transfuse if hgb <7
#MONA on CKD stage V, likely pre-renal (secondary to dehydration)
- Baseline creatinine 4, 5.6 on arrival.
- Cr improved with IVF -- d/c IVF
- c/t avoid nephrotoxic agents strictly, renally dose meds
- Appreciate nephro input
- downtrending rubber mill tender, 4.4 today
#Non-Anion gap metabolic acidosis
- Secondary to MONA on CKD Stage V
- Follow BMP
#Hypercalcemia (resolved)
#H/O parathyroidectomy
- Upon arrival serum calcium 11.0 with albumin 3.9; likely dehydrated
- No signs or symptoms of hypercalcemia, previous labs with low calcium
- Resolved with IVF, likely from dehydration
#Anxiety/depression
Patient shares that he has been depressed since his passed 3 years ago. Describes racing thoughts.
- Consider Remeron upon discharge given
- Recommend outpatient PCP follow-up
#Chronic dysphagia
#h/o GE junction stenosis s/p esophageal dilation
#h/o achalasia
- Had esophageal dilation in August 2024 with GI
- Speech therapy evaluation with recommendations for regular solids and thin liquids, meds in applesauce, aspiration precautions.
#Orthostatic hypotension
#Primary hypertension
- No known history of hypertensive systemic disease
- Home medications also included midodrine 5 mg as needed for SBP <100 or symptomatic dizziness
- Blood pressure stable as of now
- holding Amlodipine for MONA
#Metastatic renal cell carcinoma
#Liver and bone metastases
#Immunosuppressed from chemotherapy
- Home regimen includes chemotherapy with Cabometyx 20 mg daily, immunotherapy every 2 weeks
- Follows with Dr. Platt from oncology
#Hypothyroidism
- Unclear etiology, home regimen includes levothyroxine 75 mcg daily
- TSH normal
#GERD
- C/w pantoprazole 40 mg twice daily
#Dyslipidemia
- No known ASCVD history, home medications include moderate intensity statin
- Home meds also include daily aspirin for primary prevention
#Moderate Protein Calorie Malnutrition - Pts weight previous admission listed as 158 lbs (10/17) reflective of a 17 lb (11%) weight loss in two months, significant. Encouraged small frequent meals and snacks.
#Stage II pressure injury (Coccyx), POA - dry and intact, adhesive foam placed.
DVT prophylaxis: SQ heparin
Diet: regular/thin, renal (low K, low Na)
CODE STATUS: Full code
Anticipated Discharge: 24 - 48 hours
Subjective/Interval History
-
Date of Service: December 20, 2024
Feeling well this am. No acute complaints. No overnight events.
Objective Data
-
Labs:
Laboratory Results
12/20/24
05:50
WBC 5.1
Hgb 7.9 L
Hct 24.2 L
Plt Count 141
Sodium 142
Potassium 4.2
Chloride 109 H
Carbon Dioxide 21 L
BUN 54 H
Creatinine 4.4 H*
Glucose 108 H
Calcium 10.3 H
Vital Signs:
Vital Signs
Temp Pulse Resp BP Pulse Ox
97.7 F 72 16 120/62 99
12/20/24 07:17 12/20/24 07:17 12/20/24 07:17 12/20/24 07:17 12/20/24 07:17
I&O
12/19/24 12/20/24 12/21/24
06:59 06:59 06:59
Intake Total 840 / 840
Output Total 1725 / 1725
Balance -885 / -885
Review of Systems
-
History Source: Patient
Constitutional: Reports No Symptoms
EENT: Reports No Symptoms Reported
Respiratory: Reports No Symptoms
Cardiac: Reports No Symptoms
Abdomen/GI: Reports No Symptoms
Genitourinary: Reports No Symptoms
Musculoskeletal: Reports No Symptoms
Neuro: Reports No Symptoms
Physical Exam
-
General: Well Developed, Well Nourished, No Apparent Distress and Comfortable
HEENT: Normocephalic, Atraumatic, Moist Mucous Membranes, Anicteric, [place] Conjunctivae, Nose Appears Normal and Ears Appear Normal
Respiratory: Crackles (LLL, improved from prior); Negative Wheezes or Rhonchi
Cardiac: Regular Rhythm and S1/S2; Negative Murmur or Rub
GI: Soft, Nontender, Nondistended and Normal Bowel Sounds
Genito-urinary: No Costovertebral Tender
Musculoskeletal: No Clubbing, No Cyanosis and No Edema
Skin: Warm, Dry and IV Access / Catheter Site
Neuro: Awake, Alert and Oriented
[2024-12-20] MEDS: DESENEX/MITRAZOL/ZEASORB 1 APPLIC TOPICAL ×2 (10:07→21:09)
[2024-12-20 11:00] VITALS: BP 117/64
[2024-12-20] MEDS: FLOMAX 0.8 MG PO (11:46)
--- NOTE | 2024-12-20 14:14 | W.PN.NEPH.PH ---
Today's Communication / Plan
-
Renal function at baseline
No change
Assessment/Plan
-
Assessment:
MELONY with CKD5-Dr Iverson
Acute metabolic encephalopathy
Community-acquired pneumonia
Chronic Driscoll catheter
BPH with chronic bladder outlet obstruction
Gross hematuria with blood clots-Occurred in the ED after Driscoll exchange
S/p left nephrectomy 1984
AoCKD
Hypercalcemia
H/O parathyroidectomy
Chronic dysphagia
H/O GE junction stenosis s/p esophageal dilation
H/O achalasia-Had esophageal dilation in August 2024 with GI
Orthostatic hypotension
Primary hypertension
Metastatic renal cell carcinoma
Liver and bone metastases
Immunosuppressed from chemotherapy-Home regimen includes chemotherapy with Cabometyx 20 mg daily, immunotherapy every 2 weeks
-Follows with Dr. Platt from oncology
Hypothyroidism
GERD
Dyslipidemia
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
Plan
Melony with CKD-cr slowly improving to 4.9�4.4 which is about his baseline of late
hematuria post recent driscoll exchange-cleared now
renal US shows solitary kidney non obst stone
BP stable with known orthostatic hypotension
holding Amlodipine , as needed midodrine provided for blood pressures
f/u h/h, prn transfusion, fe sat only 14%, start IV fe course
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
has AVF surg also scheduled in December
no emergent need of HD
No changes made today
-
-
Date of Service: December 20, 2024
CC / HPI / ROS
-
Chief Complaint:
MELONY with CKD5
History of Present Illness:
cr slightly better near baseline
BP stable off meds
k normal
Review of Systems:
no cp or sob
no cough
no n.v
appetite is poor chronically
Labs
-
Labs:
WBC 5.1 10^3/uL (4.8-10.8) 12/20/24 05:50
RBC 2.50 10^6/uL (4.70-6.10) L 12/20/24 05:50
Hgb 7.9 g/dL (13.0-18.0) L 12/20/24 05:50
Hct 24.2 % (39.0-52.0) L 12/20/24 05:50
Plt Count 141 10^3/uL (130-400) 12/20/24 05:50
Sodium 142 mmol/L (135-145) 12/20/24 05:50
Potassium 4.2 mmol/L (3.5-5.1) 12/20/24 05:50
Chloride 109 mmol/L (98-107) H 12/20/24 05:50
Carbon Dioxide 21 mmol/L (22-30) L 12/20/24 05:50
BUN 54 mg/dl (9-20) H 12/20/24 05:50
Creatinine 4.4 mg/dL (0.7-1.3) H* 12/20/24 05:50
eGFR 12.62 12/20/24 05:50
Glucose 108 mg/dl (70-99) H 12/20/24 05:50
Calcium 10.3 mg/dl (8.4-10.2) H 12/20/24 05:50
Albumin 3.9 g/dl (3.5-5.0) 12/16/24 13:08
Physical Exam
-
Vital Signs:
Vital Signs
Temp Pulse Resp BP Pulse Ox
97.9 F 65 16 117/64 99
12/20/24 11:00 12/20/24 11:00 12/20/24 11:00 12/20/24 11:00 12/20/24 11:00
Cardiovascular:: Regular rate and rhythm
Respiratory:: Bilateral: CTA
Lung Excursion:: Normal
Abdomen:: Nontender and Soft
Bowel Sounds:: Normal
Extremity Edema:: None: Bilateral:
Driscoll Catheter: Yes
[2024-12-20] MEDS: FERRLECIT 110 MG IV (14:15)
[2024-12-20 15:06] VITALS: BP 109/68
[2024-12-20 19:37] VITALS: BP 119/62
[2024-12-20] MEDS: MELATONIN 5 MG PO (21:16)
[2024-12-20] MEDS: LIPITOR 20 MG PO (21:16)
[2024-12-20] MEDS: STERILE WATER FOR INJECTION 10 ML IV (21:16)
[2024-12-20] MEDS: ROCEPHIN 1000 MG IV (21:16)
[2024-12-20] MEDS: ZITHROMAX 255 MG IV (21:17)
[2024-12-20 23:24] VITALS: BP 122/59
[2024-12-21 03:58] VITALS: BP 112/70
[2024-12-21] MEDS: SYNTHROID 75 MCG PO (06:40)
[2024-12-21 07:42] LABS: % Basophils 0.6 % (0-2); % Immature Granulocytes 0.8 % (0-0.5); % Lymphocytes 27.9 % (20.5-51.1); % Monocytes 10.9 % (1.7-9.3); % Neutrophils 55.8 % (42.2-75.2); Absolute Eosinophils 0.2 10^3/uL (0-0.7); Absolute Lymphocytes 1.3 10^3/uL (1.2-3.4); Absolute Monocytes 0.5 10^3/uL (0.1-0.6); Absolute Neutrophils 2.7 10^3/uL (1.4-6.5); Hematocrit 25.9 % (39.0-52.0); Hemoglobin 8.3 g/dL (13.0-18.0); Mean Corpuscular Hgb 31.2 pg (27.0-31.0); Mean Corpuscular Volume 97.4 fL (80.0-94.0); Mean Platelet Volume 10.1 fL (7.4-10.4); Nucleated Red Blood Cells % 0 % (-); Platelet Count 139 10^3/uL (130-400); Red Blood Cell Count 2.66 10^6/uL (4.70-6.10); White Blood Cell Count 4.8 10^3/uL (4.8-10.8)
[2024-12-21 07:43] LABS: ALT (SGPT) 14 U/L (0-50); AST (SGOT) 38 U/L (17-59); Albumin 2.7 g/dl (3.5-5.0); Alkaline Phosphatase 50 U/L (38-126); Blood Urea Nitrogen 51 mg/dl (9-20); Calcium 10.6 mg/dl (8.4-10.2); Carbon Dioxide 25 mmol/L (22-30); Chloride 109 mmol/L (98-107); Estimated Creatinine Clearance 12 ml/min; Glucose 93 mg/dl (70-99); Potassium 4.4 mmol/L (3.5-5.1); Sodium 140 mmol/L (135-145); Total Bilirubin 0.6 mg/dl (0.2-1.3); Total Protein 5.1 g/dl (6.3-8.2); eGFR 13.34
[2024-12-21 07:53] VITALS: BP 126/66
[2024-12-21] MEDS: PROTONIX 40 MG PO ×2 (09:07→21:03)
[2024-12-21] MEDS: PROSCAR 5 MG PO (09:07)
[2024-12-21] MEDS: HEPARIN 5000 UNITS SC ×2 (09:07→21:04)
[2024-12-21] MEDS: TRICOR 145 MG PO (09:07)
[2024-12-21] MEDS: VITAMIN D3 (cholecalciferol) 50 MCG PO (09:07)
[2024-12-21] MEDS: ASPIR LOW (ENTERIC COATED) 81 MG PO (09:07)
[2024-12-21] MEDS: SODIUM BICARBONATE 650 MG PO ×2 (09:07→21:03)
[2024-12-21] MEDS: DESENEX/MITRAZOL/ZEASORB 1 APPLIC TOPICAL ×2 (09:08→21:05)
[2024-12-21] MEDS: TYLENOL 650 MG PO (10:10)
--- NOTE | 2024-12-21 11:03 | W.PN.HOSP.TC ---
Addendum entered and electronically signed by Franklin Escobedo MD 12/21/24 13:53:
NAD
Scleral Anicteric, wearing corrective lenses
DMM
No JVD
CTABL
RRR, S1/S2
Soft, NT, ND, BS+
Warm, Dry
AAOx3
Calm
Acute metabolic encephalopathy now resolved. This was likely secondary to acute infectious process with pneumonia.
Pneumonia community-acquired completed total 5-day course of Rocephin and azithromycin
Pleural effusion chest ultrasound confirmed but small therefore, no indication for thoracentesis at this time
Asymptomatic bacteriuria will/contamination in setting of chronic Coburn without evidence of dysuria urinary frequency. Continue tamsulosin posterolateral
MONA on CKD stage IV - V with a peak creatinine of 5.6 now downtrending at 4.2. Avoid nephrotoxins hypotension. Monitor urinary output.
Discussed case with vascular surgery will plan for inpatient fistula creation on 12/22/2024, will make n.p.o. after midnight
Original Note:
Today's Communication/Plan
-
d/c abx
pending authorization for SNF
AV fistula creation scheduled for tomorrow
Assessment / Plan
Assessment / Plan
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
orthostasis, BPH, hypertension, H/O achalasia, who presents with acute metabolic encephalopathy, community-acquired pneumonia, asymptomatic bacteriuria, nonanion gap metabolic acidosis
#Ambulatory dysfunction
#Weakness
- PT/OT consult.
- Ongoing authorization discussion for SNF
#Acute metabolic encephalopathy, likely secondary to pneumonia.
Question of polypharmacy/improper medication use
- UA with pyuria, leuks, RBCs. Urine culture negative.
- CT head without acute abnormalities
- Continue to hold trazodone, tramadol, other sedating agents.
- Appears to be resolved/at baseline. C/t monitor mental status clinically
- Continue abx
#Community-acquired pneumonia
- Chest x-ray with mild left lower lobe PNA. possible trace parapneumonic effusion.
- Remains without respiratory symptoms
- Cipro started in ED. switched to ceftriaxone/azithromycin. Completed 5d course of Ceftriaxone/Azithromycin
- L Chest US showing minimal L pleural effusion. No need for intervention or tap at this time
#Asymptomatic bacteriuria, chronic Coburn catheter
- h/o BPH with chronic bladder outlet obstruction
- Noted to have positive UA, apparent urine sediment noted in Coburn bag; no fever or leukocytosis. Urine cx negative
- C/w home tamsulosin and dutasteride
#Gross hematuria, likely traumatic secondary to Coburn exchange (resolved)
- Renal US shows no obstruction, some nonobstructing renal stones
- Outpt follow up with Dr. Angela for management/surveillance of nonobstructing kidney stones in solitary kidney and chronic urinary retention
#Anemia, multifactorial
- Likely secondary to chronic disease, secondary to CKD V and Iron deficiency
- Ferritin high, TIBC low, total iron/%sat low.
- Follow CBC
- transfuse if hgb <7
#MONA on CKD stage V, likely pre-renal (secondary to dehydration)
- Baseline creatinine 4, 5.6 on arrival.
- Cr improved with IVF -- d/c IVF
- c/t avoid nephrotoxic agents strictly, renally dose meds
- Appreciate nephro input
- c/t monitor bmp
- AVF creation scheduled for Wednesday
#Non-Anion gap metabolic acidosis
- Secondary to MONA on CKD Stage V
- Follow BMP
#Hypercalcemia (resolved)
#H/O parathyroidectomy
- Upon arrival serum calcium 11.0 with albumin 3.9; likely dehydrated
- No signs or symptoms of hypercalcemia, previous labs with low calcium
- Resolved with IVF, likely from dehydration
#Anxiety/depression
Patient shares that he has been depressed since his passed 3 years ago. Describes racing thoughts.
- Consider Remeron upon discharge given
- Recommend outpatient PCP follow-up
#Chronic dysphagia
#h/o GE junction stenosis s/p esophageal dilation
#h/o achalasia
- Had esophageal dilation in August 2024 with GI
- Speech therapy evaluation with recommendations for regular solids and thin liquids, meds in applesauce, aspiration precautions.
#Orthostatic hypotension
#Primary hypertension
- No known history of hypertensive systemic disease
- Home medications also included midodrine 5 mg as needed for SBP <100 or symptomatic dizziness
- Blood pressure stable as of now
- holding Amlodipine for MONA
#Metastatic renal cell carcinoma
#Liver and bone metastases
#Immunosuppressed from chemotherapy
- Home regimen includes chemotherapy with Cabometyx 20 mg daily, immunotherapy every 2 weeks
- Follows with Dr. Platt from oncology
#Hypothyroidism
- Unclear etiology, home regimen includes levothyroxine 75 mcg daily
- TSH normal
#GERD
- C/w pantoprazole 40 mg twice daily
#Dyslipidemia
- No known ASCVD history, home medications include moderate intensity statin
- Home meds also include daily aspirin for primary prevention
#Moderate Protein Calorie Malnutrition - Pts weight previous admission listed as 158 lbs (10/17) reflective of a 17 lb (11%) weight loss in two months, significant. Encouraged small frequent meals and snacks.
#Stage II pressure injury (Coccyx), POA - dry and intact, adhesive foam placed.
DVT prophylaxis: SQ heparin
Diet: regular/thin, renal (low K, low Na)
CODE STATUS: Full code
Anticipated Discharge: 24 - 48 hours
Subjective/Interval History
-
Date of Service: December 21, 2024
Feeling well, no acute complaints, no overnight events.
Objective Data
-
Labs:
Laboratory Results
12/21/24
06:00
WBC 4.8
Hgb 8.3 L
Hct 25.9 L
Plt Count 139
Sodium 140
Potassium 4.4
Chloride 109 H
Carbon Dioxide 25
BUN 51 H
Creatinine 4.2 H*
Glucose 93
Calcium 10.6 H
Total Bilirubin 0.6
AST 38
ALT 14
Alkaline Phosphatase 50
Vital Signs:
Vital Signs
Temp Pulse Resp BP Pulse Ox
97.5 F 72 16 126/66 100
12/21/24 07:53 12/21/24 07:53 12/21/24 07:53 12/21/24 07:53 12/21/24 07:53
I&O
12/20/24 12/21/24 12/22/24
06:59 06:59 06:59
Intake Total 840 / 840 1440 / 1440
Output Total 1725 / 1725 700 / 700
Balance -885 / -885 740 / 740
Review of Systems
-
History Source: Patient
Constitutional: Reports No Symptoms
EENT: Reports No Symptoms Reported
Respiratory: Reports No Symptoms
Cardiac: Reports No Symptoms
Abdomen/GI: Reports No Symptoms
Genitourinary: Reports No Symptoms
Musculoskeletal: Reports No Symptoms
Skin: Reports No Symptoms
Neuro: Reports No Symptoms
Physical Exam
-
General: Well Developed, Well Nourished, No Apparent Distress and Comfortable
HEENT: Normocephalic, Atraumatic, Moist Mucous Membranes, Anicteric, [place] Conjunctivae, Nose Appears Normal and Ears Appear Normal
Respiratory: Crackles (LLL crackles, improving); Negative Wheezes or Rhonchi
Cardiac: Regular Rhythm and S1/S2; Negative Murmur or Rub
GI: Soft, Nontender, Nondistended and Normal Bowel Sounds
Genito-urinary: No Costovertebral Tender
Musculoskeletal: No Clubbing, No Cyanosis and No Edema
Skin: Warm, Dry and IV Access / Catheter Site
Neuro: Awake and Alert
[2024-12-21 11:07] VITALS: BP 127/64
--- NOTE | 2024-12-21 12:10 | CM ---
Faxed [facility] at [facility] PT/OT yuniel
rec SNF
Spoke with [facility] at [facility] [phone] she stated wiill accept patient tomorrow after procedure.
Discussed that patient is to have fistula placed tomorrow (it was scheduled for tomorrow previously)
She stated she will speak with son regarding transportation once dialysis will be initiated as he will have to privately pay as they only have transportation 2 days a week for physician's appts.
PLAN: Return to [facility] with [facility] Fax #: [phone]
--- NOTE | 2024-12-21 12:30 | W.PN.NEPH.PH ---
Today's Communication / Plan
-
BMP
Assessment/Plan
-
Assessment:
MELONY with CKD5-Dr Iverson
Acute metabolic encephalopathy
Community-acquired pneumonia
Chronic Driscoll catheter
BPH with chronic bladder outlet obstruction
Gross hematuria with blood clots-Occurred in the ED after Driscoll exchange
S/p left nephrectomy 1984
AoCKD
Hypercalcemia
H/O parathyroidectomy
Chronic dysphagia
H/O GE junction stenosis s/p esophageal dilation
H/O achalasia-Had esophageal dilation in August 2024 with GI
Orthostatic hypotension
Primary hypertension
Metastatic renal cell carcinoma
Liver and bone metastases
Immunosuppressed from chemotherapy-Home regimen includes chemotherapy with Cabometyx 20 mg daily, immunotherapy every 2 weeks
-Follows with Dr. Platt from oncology
Hypothyroidism
GERD
Dyslipidemia
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
Plan
Melony with CKD-cr slowly improving to 4.9�4.4 which is about his baseline of late
hematuria post recent driscoll exchange-cleared now
renal US shows solitary kidney non obst stone
BP stable with known orthostatic hypotension
Continue holding Amlodipine , as needed midodrine provided for blood pressures= BP stable
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
has AVF surg also scheduled for tomorrow and patient
no emergent need of HD
No changes made today
-
-
Date of Service: December 21, 2024
CC / HPI / ROS
-
Chief Complaint:
MELONY with CKD5
History of Present Illness:
cr slightly better near baseline
BP stable off meds
k normal
Review of Systems:
no cp or sob
no cough
no n.v
appetite is poor chronically
Labs
-
Labs:
WBC 4.8 10^3/uL (4.8-10.8) 12/21/24 06:00
RBC 2.66 10^6/uL (4.70-6.10) L 12/21/24 06:00
Hgb 8.3 g/dL (13.0-18.0) L 12/21/24 06:00
Hct 25.9 % (39.0-52.0) L 12/21/24 06:00
Plt Count 139 10^3/uL (130-400) 12/21/24 06:00
Sodium 140 mmol/L (135-145) 12/21/24 06:00
Potassium 4.4 mmol/L (3.5-5.1) 12/21/24 06:00
Chloride 109 mmol/L (98-107) H 12/21/24 06:00
Carbon Dioxide 25 mmol/L (22-30) 12/21/24 06:00
BUN 51 mg/dl (9-20) H 12/21/24 06:00
Creatinine 4.2 mg/dL (0.7-1.3) H* 12/21/24 06:00
eGFR 13.34 12/21/24 06:00
Glucose 93 mg/dl (70-99) 12/21/24 06:00
Calcium 10.6 mg/dl (8.4-10.2) H 12/21/24 06:00
Albumin 2.7 g/dl (3.5-5.0) L 12/21/24 06:00
Physical Exam
-
Vital Signs:
Vital Signs
Temp Pulse Resp BP Pulse Ox
97.5 F 75 18 127/64 100
12/21/24 11:07 12/21/24 11:07 12/21/24 11:07 12/21/24 11:07 12/21/24 11:07
Cardiovascular:: Regular rate and rhythm
Respiratory:: Bilateral: CTA
Lung Excursion:: Normal
Abdomen:: Nontender and Soft
Bowel Sounds:: Normal
Extremity Edema:: None: Bilateral:
Driscoll Catheter: Yes
[2024-12-21] MEDS: FLOMAX 0.8 MG PO (12:37)
[2024-12-21] MEDS: FERRLECIT 110 MG IV (14:03)
[2024-12-21 15:19] VITALS: BP 132/67
[2024-12-21] MEDS: MELATONIN 5 MG PO (21:03)
[2024-12-21] MEDS: LIPITOR 20 MG PO (21:03)
[2024-12-22] VITALS (16 sets, daily range): BP systolic 91–132; BP diastolic 61–71; BMI 21.1
[2024-12-22] MEDS: SYNTHROID 75 MCG PO (05:27)
[2024-12-22] MEDS: BACTROBAN 2% OINTMENT 1 APPLIC NASAL (05:46)
[2024-12-22 06:55] LABS: % Basophils 0.6 % (0-2); % Eosinophils 2.9 % (0-6); % Lymphocytes 25.8 % (20.5-51.1); % Monocytes 10.5 % (1.7-9.3); % Neutrophils 59.2 % (42.2-75.2); Absolute Eosinophils 0.2 10^3/uL (0-0.7); Absolute Immature Granulocytes 0.1 10^3/uL (0-0.05); Absolute Lymphocytes 1.3 10^3/uL (1.2-3.4); Absolute Monocytes 0.5 10^3/uL (0.1-0.6); Absolute Neutrophils 3.1 10^3/uL (1.4-6.5); Hematocrit 24.5 % (39.0-52.0); Mean Corp Hgb Conc. 32.7 g/dL (33.0-37.0); Mean Corpuscular Hgb 31.4 pg (27.0-31.0); Mean Corpuscular Volume 96.1 fL (80.0-94.0); Mean Platelet Volume 9.7 fL (7.4-10.4); Nucleated Red Blood Cells % 0 % (-); Platelet Count 138 10^3/uL (130-400); Red Blood Cell Count 2.55 10^6/uL (4.70-6.10); Red Cell Dist. Width 15.9 % (11.5-14.5); White Blood Cell Count 5.2 10^3/uL (4.8-10.8)
[2024-12-22 07:21] LABS: ALT (SGPT) 15 U/L (0-50); AST (SGOT) 41 U/L (17-59); Albumin 3.1 g/dl (3.5-5.0); Alkaline Phosphatase 53 U/L (38-126); Blood Urea Nitrogen 53 mg/dl (9-20); Calcium 10.8 mg/dl (8.4-10.2); Carbon Dioxide 21 mmol/L (22-30); Chloride 111 mmol/L (98-107); Estimated Creatinine Clearance 12 ml/min; Glucose 98 mg/dl (70-99); Potassium 4.4 mmol/L (3.5-5.1); Sodium 142 mmol/L (135-145); Total Bilirubin 0.8 mg/dl (0.2-1.3); Total Protein 5.7 g/dl (6.3-8.2); eGFR 13.74
[2024-12-22] MEDS: TRICOR 145 MG PO (08:23)
[2024-12-22] MEDS: SODIUM BICARBONATE 650 MG PO ×2 (08:23→20:38)
[2024-12-22] MEDS: ASPIR LOW (ENTERIC COATED) 81 MG PO (08:23)
[2024-12-22] MEDS: VITAMIN D3 (cholecalciferol) 50 MCG PO (08:23)
[2024-12-22] MEDS: HEPARIN 5000 UNITS SC ×2 (08:23→20:36)
[2024-12-22] MEDS: PROTONIX 40 MG PO ×2 (08:23→20:37)
[2024-12-22] MEDS: DESENEX/MITRAZOL/ZEASORB 1 APPLIC TOPICAL ×2 (08:24→20:35)
--- NOTE | 2024-12-22 11:07 | TRANSFER ---
Patient transferred from [facility] to Cath pre-op bay 5. Patient awake, alert and oriented and with a nursing assistants teacher. Dr. Magaña aware to come see patient. VSS 120/78, 75, 98% on room air and 24RR. Patient given warm blankets and aso awaiting to be
seen by Dr. Coburn prior to procedure.
[2024-12-22] MEDS: FLOMAX PO (11:48)
--- NOTE | 2024-12-22 12:21 | W.SUR.PREOP ---
Pre-Operative Surgical Note
-
I have examined this patient prior to the performance of the scheduled procedure.
The patient's condition is unchanged from the time of the current History and
Physical and the patient is able to undergo the scheduled procedure.
--- NOTE | 2024-12-22 13:43 | W.PN.HOSP.TC ---
Today's Communication/Plan
-
plan for d/c today after fistula
Assessment / Plan
Assessment / Plan
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
orthostasis, BPH, hypertension, H/O achalasia, who presents with acute metabolic encephalopathy, community-acquired pneumonia, asymptomatic bacteriuria, nonanion gap metabolic acidosis
#Ambulatory dysfunction
#Weakness
- PT/OT consult.
- Ongoing authorization discussion for SNF
#Acute metabolic encephalopathy, likely secondary to pneumonia.
Question of polypharmacy/improper medication use
- UA with pyuria, leuks, RBCs. Urine culture negative.
- CT head without acute abnormalities
- Continue to hold trazodone, tramadol, other sedating agents.
- Appears to be resolved/at baseline. C/t monitor mental status clinically
#Community-acquired pneumonia
- Chest x-ray with mild left lower lobe PNA. possible trace parapneumonic effusion.
- Remains without respiratory symptoms
- Cipro started in ED. switched to ceftriaxone/azithromycin. Completed 5d course of Ceftriaxone/Azithromycin
- L Chest US showing minimal L pleural effusion. No need for intervention or tap at this time
#Asymptomatic bacteriuria, chronic Coburn catheter
- h/o BPH with chronic bladder outlet obstruction
- Noted to have positive UA, apparent urine sediment noted in Coburn bag; no fever or leukocytosis. Urine cx negative
- C/w home tamsulosin and dutasteride
#Gross hematuria, likely traumatic secondary to Coburn exchange (resolved)
- Renal US shows no obstruction, some nonobstructing renal stones
- Outpt follow up with Dr. Angela for management/surveillance of nonobstructing kidney stones in solitary kidney and chronic urinary retention
#Anemia, multifactorial
- Likely secondary to chronic disease, secondary to CKD V and Iron deficiency
- Ferritin high, TIBC low, total iron/%sat low.
- Follow CBC
- transfuse if hgb <7
#MONA on CKD stage V, likely pre-renal (secondary to dehydration)
- Baseline creatinine 4, 5.6 on arrival.
- Cr improved with IVF -- d/c IVF
- c/t avoid nephrotoxic agents strictly, renally dose meds
- Appreciate nephro input
- c/t monitor bmp
- AVF creation today for eventual dialysis
#Non-Anion gap metabolic acidosis
- Secondary to MONA on CKD Stage V
- Follow BMP
#Hypercalcemia (resolved)
#H/O parathyroidectomy
#h/o bone mets
- Upon arrival serum calcium 11.0 with albumin 3.9; likely dehydrated
- No signs or symptoms of hypercalcemia, previous labs with low calcium
- Resolved with IVF, likely from dehydration
#Anxiety/depression
Patient shares that he has been depressed since his passed 3 years ago. Describes racing thoughts.
- Consider Remeron upon discharge given
- Recommend outpatient PCP follow-up
#Chronic dysphagia
#h/o GE junction stenosis s/p esophageal dilation
#h/o achalasia
- Had esophageal dilation in August 2024 with GI
- Speech therapy evaluation with recommendations for regular solids and thin liquids, meds in applesauce, aspiration precautions.
#Orthostatic hypotension
#Primary hypertension
- No known history of hypertensive systemic disease
- Home medications also included midodrine 5 mg as needed for SBP <100 or symptomatic dizziness
- Blood pressure stable as of now
- holding amlodipine for orthostatic hypotension
#Metastatic renal cell carcinoma
#Liver and bone metastases
#Immunosuppressed from chemotherapy
- Home regimen includes chemotherapy with Cabometyx 20 mg daily, immunotherapy every 2 weeks
- Follows with Dr. Platt from oncology
#Hypothyroidism
- Unclear etiology, home regimen includes levothyroxine 75 mcg daily
- TSH normal
#GERD
- C/w pantoprazole 40 mg twice daily
#Dyslipidemia
- No known ASCVD history, home medications include moderate intensity statin
- Home meds also include daily aspirin for primary prevention
#Moderate Protein Calorie Malnutrition - Pts weight previous admission listed as 158 lbs (10/17) reflective of a 17 lb (11%) weight loss in two months, significant. Encouraged small frequent meals and snacks.
#Stage II pressure injury (Coccyx), POA - dry and intact, adhesive foam placed.
DVT prophylaxis: SQ heparin
Diet: regular/thin, renal (low K, low Na)
CODE STATUS: Full code
Anticipated Discharge: Today
Subjective/Interval History
-
Date of Service: December 22, 2024
Seen in the AM, no acute complaints. No overnight events.
Objective Data
-
Labs:
Laboratory Results
12/22/24
06:35
WBC 5.2
Hgb 8.0 L
Hct 24.5 L
Plt Count 138
Sodium 142
Potassium 4.4
Chloride 111 H
Carbon Dioxide 21 L
BUN 53 H
Creatinine 4.1 H*
Glucose 98
Calcium 10.8 H
Total Bilirubin 0.8
AST 41
ALT 15
Alkaline Phosphatase 53
Vital Signs:
Vital Signs
Temp Pulse Resp BP Pulse Ox
97.8 F 70 17 119/65 98
12/22/24 07:38 12/22/24 12:30 12/22/24 12:30 12/22/24 12:03 12/22/24 12:30
I&O
12/21/24 12/22/24 12/23/24
06:59 06:59 06:59
Intake Total 1440 / 1440 180 / 180
Output Total 700 / 700 1350 / 1350
Balance 740 / 740 -1170 / -1170
Review of Systems
-
History Source: Patient
Constitutional: Reports No Symptoms
EENT: Reports No Symptoms Reported
Respiratory: Reports No Symptoms
Cardiac: Reports No Symptoms
Abdomen/GI: Reports No Symptoms
Genitourinary: Reports No Symptoms
Musculoskeletal: Reports No Symptoms
Physical Exam
-
General: Well Developed, Well Nourished, No Apparent Distress and Comfortable
HEENT: Normocephalic, Atraumatic, Moist Mucous Membranes, Anicteric, [place] Conjunctivae, Nose Appears Normal and Ears Appear Normal
Respiratory: Clear to Auscultation; Negative Wheezes, Rales or Rhonchi
Cardiac: Regular Rhythm and S1/S2; Negative Murmur or Rub
GI: Soft, Nontender, Nondistended and Normal Bowel Sounds
Musculoskeletal: No Clubbing, No Cyanosis and No Edema
Skin: Warm, Dry and IV Access / Catheter Site
Neuro: Awake and Alert
--- NOTE | 2024-12-22 14:36 | OR.RPT ---
Operative Report
Operative Report
Date of Operation: 12/22/2024
Pre Op Diagnosis: Chronic kidney disease with anticipated need for hemodialysis.
Post Op Diagnosis: Chronic kidney disease with anticipated need for hemodialysis
Procedure: Creation of left upper arm brachiobasilic arteriovenous fistula (first stage of a planned two-stage basilic vein transposition)
Surgeon: Gerhard Coburn III, MD
Anesthesia: General
Complications: None
Estimated Blood Loss: Less than 20 cc
History and Indications for Procedure: 84-year-old male with multiple medical problems including chronic kidney disease. He has anticipated need for hemodialysis initiation in the future. We were asked to place permanent hemodialysis access.
Procedure in Detail: Deven Randle was correctly identified and placed supine on the operating table. After adequate induction of anesthesia the left arm was positioned, prepped and draped in the usual sterile fashion. Preoperative antibiotics were
administered. A timeout procedure was performed with the nursing and anesthesia staff confirming the patients identity as well as the nature and laterality of the procedure.
I performed intraoperative ultrasound on the veins of the left arm. I identified the upper arm basilic vein from the elbow to the axilla. The brachial artery was also identified in the distal upper arm and proximal forearm. The appropriate site for
the incision was then identified in the distal upper arm, just proximal to the elbow.
An incision was then made in the distal upper arm. Careful sharp dissection was performed and the basilic vein exposed. Branches of the vein were ligated between ties. The brachial artery was exposed with sharp dissection. Proximal and distal
control was obtained with vessel loops.
The distal end of the basilic vein was ligated with a tie. The vein was transected and flushed proximally with heparinized saline. The vein flushed easily and without resistance. The vessel loops on the artery were secured. An arteriotomy was made
with an 11-blade. This was extended just slightly proximally and distally with Hernandes scissors. The proximal and distal artery was flushed with heparinized saline. The end of the vein was spatulated slightly. An end-to-side anastomosis was performed
from the end of the basilic vein to the brachial artery with a running 7-0 Prolene. At the completion of the anastomosis the proximal vessel loop was released first. After several heartbeats the distal brachial artery loop was released. The suture
line was closely inspected and hemostasis achieved. There was an excellent thrill in the vein. There was a good pulse in the brachial artery proximal and distal to the anastomosis.
The wound was irrigated with saline. Hemostasis was achieved in the wound bed. The wound was closed in multiple layers and sterile dressings applied.
The patient tolerated the procedure well and was taken to the PACU in stable condition.
Signed:
Gerhard Coubrn III, MD
Vascular Surgery
[facility]
--- NOTE | 2024-12-22 15:13 | CM ---
Addendum entered by Leilani Ham 12/22/24 16:45:
IMM explained & signed.
Original Note:
Patient to OR today for fistula
Patient resides at [facility]
Spoke with [facility] at [facility] [phone] she stated wiill accept patient & therapy notes faxed to her
PT had rec SNF -family wanted patient to return to [facility] with [facility]
Discussion with patient daughter in law [facility]
Return to [facility] with [facility] Fax #: [phone]
[facility] Report #: [phone] Fax #: [phone]
--- NOTE | 2024-12-22 15:25 | W.PN.NEPH.PH ---
Today's Communication / Plan
-
For AV fistula today and then possible discharge
GFR based
Assessment/Plan
-
Assessment:
MELONY with CKD5-Dr Iverson
Acute metabolic encephalopathy
Community-acquired pneumonia
Chronic Driscoll catheter
BPH with chronic bladder outlet obstruction
Gross hematuria with blood clots-Occurred in the ED after Driscoll exchange
S/p left nephrectomy 1984
AoCKD
Hypercalcemia
H/O parathyroidectomy
Chronic dysphagia
H/O GE junction stenosis s/p esophageal dilation
H/O achalasia-Had esophageal dilation in August 2024 with GI
Orthostatic hypotension
Primary hypertension
Metastatic renal cell carcinoma
Liver and bone metastases
Immunosuppressed from chemotherapy-Home regimen includes chemotherapy with Cabometyx 20 mg daily, immunotherapy every 2 weeks
-Follows with Dr. Platt from oncology
Hypothyroidism
GERD
Dyslipidemia
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
Plan
Melony with CKD-cr slowly improving to 4.9�4.1 which is about his baseline of late
hematuria post recent driscoll exchange-cleared now
renal US shows solitary kidney non obst stone
BP stable with known orthostatic hypotension
Continue holding Amlodipine , as needed midodrine provided for blood pressures= BP stable
pt has been in preparation for [facility] from last visit Dr Iverson in october
has AVF surg also scheduled for today
no emergent need of HD
No changes made today
-
-
Date of Service: December 22, 2024
CC / HPI / ROS
-
Chief Complaint:
MELONY with CKD5
History of Present Illness:
cr slightly better near baseline
BP stable off meds
k normal
Review of Systems:
no cp or sob
no cough
no n.v
appetite is poor chronically
Labs
-
Labs:
WBC 5.2 10^3/uL (4.8-10.8) 12/22/24 06:35
RBC 2.55 10^6/uL (4.70-6.10) L 12/22/24 06:35
Hgb 8.0 g/dL (13.0-18.0) L 12/22/24 06:35
Hct 24.5 % (39.0-52.0) L 12/22/24 06:35
Plt Count 138 10^3/uL (130-400) 12/22/24 06:35
Sodium 142 mmol/L (135-145) 12/22/24 06:35
Potassium 4.4 mmol/L (3.5-5.1) 12/22/24 06:35
Chloride 111 mmol/L (98-107) H 12/22/24 06:35
Carbon Dioxide 21 mmol/L (22-30) L 12/22/24 06:35
BUN 53 mg/dl (9-20) H 12/22/24 06:35
Creatinine 4.1 mg/dL (0.7-1.3) H* 12/22/24 06:35
eGFR 13.74 12/22/24 06:35
Glucose 98 mg/dl (70-99) 12/22/24 06:35
Calcium 10.8 mg/dl (8.4-10.2) H 12/22/24 06:35
Albumin 3.1 g/dl (3.5-5.0) L 12/22/24 06:35
Physical Exam
-
Vital Signs:
Vital Signs
Temp Pulse Resp BP Pulse Ox
97.2 F 81 14 120/68 96
12/22/24 14:20 12/22/24 14:50 12/22/24 14:50 12/22/24 14:50 12/22/24 14:50
Cardiovascular:: Regular rate and rhythm
Respiratory:: Bilateral: CTA
Lung Excursion:: Normal
Abdomen:: Nontender and Soft
Bowel Sounds:: Normal
Extremity Edema:: None: Bilateral:
Driscoll Catheter: Yes
[2024-12-22] MEDS: FERRLECIT 110 MG IV (16:09)
--- NOTE | 2024-12-22 17:14 | W.PN.UPDATE ---
Update Note
Progress Note Update
Upon routine post op check by this provider, noted moderate sized hematoma, all area remains soft and surrounding compartments, patient denied pain, vital signs stable, and suture line well-approximated. Left extremity AV fistula remained with
easily palpable thrill despite moderate hematoma and left hand warm with easily palpable radial pulse. Placed gentle Gabriele wrap around hematoma and reevaluated roughly 2 hours later. Upon reevaluation hematoma nearly completely resolved, suture line
intact and well-approximated, all surrounding compartments soft, ecchymosis present but overall markedly improved from prior assessment. Replaced gentle Gabriele wrap and again updated my attending Dr. Gerhard Coburn III, who agreed with plan. Recommend
patient stay overnight for continued observation, relayed to primary team via [facility] text.
[2024-12-22] MEDS: LIPITOR 20 MG PO (20:38)
[2024-12-22] MEDS: MELATONIN 5 MG PO (20:39)
[2024-12-23 06:00] VITALS: BMI 21.0
[2024-12-23] MEDS: SYNTHROID 75 MCG PO (06:14)
[2024-12-23 07:27] LABS: % Basophils 0.5 % (0-2); % Eosinophils 0.4 % (0-6); % Immature Granulocytes 0.7 % (0-0.5); % Lymphocytes 16.7 % (20.5-51.1); % Monocytes 12.2 % (1.7-9.3); % Neutrophils 69.5 % (42.2-75.2); Absolute Immature Granulocytes 0.1 10^3/uL (0-0.05); Absolute Lymphocytes 1.4 10^3/uL (1.2-3.4); Absolute Neutrophils 5.7 10^3/uL (1.4-6.5); Hematocrit 26.6 % (39.0-52.0); Hemoglobin 8.8 g/dL (13.0-18.0); Mean Corp Hgb Conc. 33.1 g/dL (33.0-37.0); Mean Corpuscular Hgb 31.5 pg (27.0-31.0); Mean Corpuscular Volume 95.3 fL (80.0-94.0); Mean Platelet Volume 10.3 fL (7.4-10.4); Nucleated Red Blood Cells % 0 % (-); Platelet Count 144 10^3/uL (130-400); Red Blood Cell Count 2.79 10^6/uL (4.70-6.10); Red Cell Dist. Width 15.9 % (11.5-14.5); White Blood Cell Count 8.2 10^3/uL (4.8-10.8)
[2024-12-23 08:05] LABS: AST (SGOT) 39 U/L (17-59); Alkaline Phosphatase 53 U/L (38-126); Blood Urea Nitrogen 52 mg/dl (9-20); Calcium 11.2 mg/dl (8.4-10.2); Carbon Dioxide 18 mmol/L (22-30); Chloride 109 mmol/L (98-107); Estimated Creatinine Clearance 12 ml/min; Glucose 99 mg/dl (70-99); Potassium 4.9 mmol/L (3.5-5.1); Sodium 141 mmol/L (135-145); Total Bilirubin 0.7 mg/dl (0.2-1.3); Total Protein 5.5 g/dl (6.3-8.2); eGFR 12.97
[2024-12-23] MEDS: VITAMIN D3 (cholecalciferol) 50 MCG PO (08:38)
[2024-12-23] MEDS: HEPARIN 5000 UNITS SC ×2 (08:38→20:13)
[2024-12-23] MEDS: DESENEX/MITRAZOL/ZEASORB 1 APPLIC TOPICAL ×2 (08:38→20:13)
[2024-12-23] MEDS: ASPIR LOW (ENTERIC COATED) 81 MG PO (08:38)
[2024-12-23] MEDS: TRICOR 145 MG PO (08:38)
[2024-12-23] MEDS: PROTONIX 40 MG PO ×2 (08:38→20:12)
[2024-12-23] MEDS: PROSCAR 5 MG PO (08:38)
[2024-12-23] MEDS: SODIUM BICARBONATE 650 MG PO ×2 (08:38→20:13)
[2024-12-23 08:53] VITALS: BP 113/58
--- NOTE | 2024-12-23 10:11 | W.PN.NEPH.PH ---
Today's Communication / Plan
-
Patient stable from nephrology standpoint for discharge
Assessment/Plan
-
Assessment:
MELONY with CKD5-Dr Iverson
Acute metabolic encephalopathy
Community-acquired pneumonia
Chronic Driscoll catheter
BPH with chronic bladder outlet obstruction
Gross hematuria with blood clots-Occurred in the ED after Driscoll exchange
S/p left nephrectomy 1984
AoCKD
Hypercalcemia
H/O parathyroidectomy
Chronic dysphagia
H/O GE junction stenosis s/p esophageal dilation
H/O achalasia-Had esophageal dilation in August 2024 with GI
Orthostatic hypotension
Primary hypertension
Metastatic renal cell carcinoma
Liver and bone metastases
Immunosuppressed from chemotherapy-Home regimen includes chemotherapy with Cabometyx 20 mg daily, immunotherapy every 2 weeks
-Follows with Dr. Platt from oncology
Hypothyroidism
GERD
Dyslipidemia
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
Plan
Melony with CKD-cr slowly improving to 4.9�4.3 which is about his baseline of late
hematuria post recent driscoll exchange-cleared now
renal US shows solitary kidney non obst stone
BP stable with known orthostatic hypotension
Continue holding Amlodipine , as needed midodrine provided for blood pressures= BP stable
pt has been in preparation for [facility] from last visit Dr Iverson in october
Status post AVF placement on 12/22/2024
no emergent need of HD
No changes made today
Patient stable for discharge from nephrology standpoint
-
-
Date of Service: December 23, 2024
CC / HPI / ROS
-
Chief Complaint:
MELONY with CKD5
History of Present Illness:
cr slightly better near baseline
BP stable off meds
k normal
Review of Systems:
no cp or sob
no cough
no n.v
appetite is poor chronically
Labs
-
Labs:
WBC 8.2 10^3/uL (4.8-10.8) 12/23/24 06:26
RBC 2.79 10^6/uL (4.70-6.10) L 12/23/24 06:26
Hgb 8.8 g/dL (13.0-18.0) L 12/23/24 06:26
Hct 26.6 % (39.0-52.0) L 12/23/24 06:26
Plt Count 144 10^3/uL (130-400) 12/23/24 06:26
Sodium 141 mmol/L (135-145) 12/23/24 06:26
Potassium 4.9 mmol/L (3.5-5.1) 12/23/24 06:26
Chloride 109 mmol/L (98-107) H 12/23/24 06:26
Carbon Dioxide 18 mmol/L (22-30) L 12/23/24 06:26
BUN 52 mg/dl (9-20) H 12/23/24 06:26
Creatinine 4.3 mg/dL (0.7-1.3) H* 12/23/24 06:26
eGFR 12.97 12/23/24 06:26
Glucose 99 mg/dl (70-99) 12/23/24 06:26
Calcium 11.2 mg/dl (8.4-10.2) H 12/23/24 06:26
Albumin 3.0 g/dl (3.5-5.0) L 12/23/24 06:26
Physical Exam
-
Vital Signs:
Vital Signs
Temp Pulse Resp BP Pulse Ox
97.9 F 78 20 113/58 98
12/23/24 08:53 12/23/24 08:53 12/23/24 08:53 12/23/24 08:53 12/23/24 08:53
Cardiovascular:: Regular rate and rhythm
Respiratory:: Bilateral: CTA
Lung Excursion:: Normal
Abdomen:: Nontender and Soft
Bowel Sounds:: Normal
Extremity Edema:: None: Bilateral:
Driscoll Catheter: No
Other Findings::
Left upper extremity brachiocephalic AV fistula : wrapped in GAY bandage
--- NOTE | 2024-12-23 10:50 | W.PN.HOSP.TC ---
Today's Communication/Plan
-
Await final recommendations from vascular surgery about discharge
Assessment / Plan
Assessment / Plan
NAD
Scleral Anicteric, wearing corrective lenses
DMM
No JVD
CTABL
RRR, S1/S2
Soft, NT, ND, BS+
Left upper extremity wrapped in Gabriele bandage
Warm, Dry
AAOx3
Calm
Acute metabolic encephalopathy now resolved. This was likely secondary to acute infectious process with pneumonia.
Pneumonia community-acquired completed total 5-day course of Rocephin and azithromycin
Pleural effusion chest ultrasound confirmed but small therefore, no indication for thoracentesis at this time
Asymptomatic bacteriuria will/contamination in setting of chronic Coburn without evidence of dysuria urinary frequency. Continue tamsulosin posterolateral
MONA on CKD stage IV - V with a peak creatinine of 5.6 now downtrending at 4.2. Avoid nephrotoxins hypotension. Monitor urinary output.
S/p AV fistula creation on 12/22. Vascular surgery noted postop hematoma at site. Recommended to observe overnight. Ready message vascular surgery this morning over [facility]. Will be evaluated later today. If no further worsening in
hematoma then potential discharge to previous facility
Metabolic acidosis related to CKD stage V. Continue alkali therapy per KDIGO guidelines which recommend if persistent bicarb less than 22 and CKD to start alkali therapy to prevent further/slow renal function if worsening
Anticipated Discharge: Within 24 hours
Subjective/Interval History
-
Date of Service: December 23, 2024
Seen and examined. No new complaints. No acute overnight events.
Had AV fistula creation yesterday. Discharge was held vascular surgery noted hematoma at site and recommended to observe overnight. Awaiting vascular surgery to reevaluate listed this and is aware of this.
Objective Data
-
Labs:
Laboratory Results
12/23/24
06:26
WBC 8.2
Hgb 8.8 L
Hct 26.6 L
Plt Count 144
Sodium 141
Potassium 4.9
Chloride 109 H
Carbon Dioxide 18 L
BUN 52 H
Creatinine 4.3 H*
Glucose 99
Calcium 11.2 H
Total Bilirubin 0.7
AST 39
ALT Pending
Alkaline Phosphatase 53
Vital Signs:
Vital Signs
Temp Pulse Resp BP Pulse Ox
97.9 F 78 20 113/58 98
12/23/24 08:53 12/23/24 08:53 12/23/24 08:53 12/23/24 08:53 12/23/24 08:53
I&O
12/22/24 12/23/24 12/24/24
06:59 06:59 06:59
Intake Total 180 / 180
Output Total 1350 / 1350 1400 / 1400
Balance -1170 / -1170 -1400 / -1400
[2024-12-23 11:16] LABS: ALT (SGPT) < 30 U/L (0-50)
[2024-12-23] MEDS: FLOMAX 0.8 MG PO (12:56)
--- NOTE | 2024-12-23 16:13 | W.PN.VS ---
Today's Communication / Plan
-
See plan below for today 12/23/2024.
Assessment/Plan
-
Postoperative day #1.
� Reapplied Gabriele bandage.
� Observe closely and if continued fullness/hematoma we will plan washout. Otherwise if stable will plan discharge.
-
Total Time Spent with Patient (in minutes): 7
Subjective Data
-
Date of Service: December 23, 2024
Patient without complaints.
Objective Data
-
Vital Signs
Temp Pulse Resp BP Pulse Ox
97.9 F 78 20 113/58 98
12/23/24 08:53 12/23/24 08:53 12/23/24 08:53 12/23/24 08:53 12/23/24 08:53
Intake and Output
12/22/24 12/23/24 12/24/24
06:59 06:59 06:59
Intake Total 180 / 180
Output Total 1350 / 1350 1400 / 1400
Balance -1170 / -1170 -1400 / -1400
Intake:
Oral fluids 180 / 180
Output:
Urine, Coburn 1350 / 1350 1400 / 1400
Lab Results
12/23/24 06:26
12/23/24 06:26
Calcium 11.2 mg/dl (8.4-10.2) H 12/23/24 06:26
Magnesium 2.1 mg/dl (1.6-2.3) 12/19/24 07:34
Total Bilirubin 0.7 mg/dl (0.2-1.3) 12/23/24 06:26
AST 39 U/L (17-59) 12/23/24 06:26
ALT < 30 U/L (0-50) 12/23/24 06:26
Alkaline Phosphatase 53 U/L (38-126) 12/23/24 06:26
Total Protein 5.5 g/dl (6.3-8.2) L 12/23/24 06:26
Albumin 3.0 g/dl (3.5-5.0) L 12/23/24 06:26
Physical Exam
-
Afebrile.
Left upper extremity Gabriele bandage removed. Ecchymosis unchanged. There is a moderate hematoma deep to the incision. The arm is soft. Incision is clean dry intact. Nonpulsatile. Good thrill in the fistula.
[2024-12-23 17:17] VITALS: BP 117/60
[2024-12-23] MEDS: MELATONIN 5 MG PO (20:12)
[2024-12-23] MEDS: LIPITOR 20 MG PO (20:12)
[2024-12-23 23:00] VITALS: BP 98/63
[2024-12-24] MEDS: SYNTHROID 75 MCG PO (05:20)
[2024-12-24 06:00] VITALS: BMI 21.3
[2024-12-24 06:39] LABS: % Basophils 0.5 % (0-2); % Eosinophils 2.5 % (0-6); % Immature Granulocytes 0.9 % (0-0.5); % Lymphocytes 25.9 % (20.5-51.1); % Monocytes 8.9 % (1.7-9.3); % Neutrophils 61.3 % (42.2-75.2); Absolute Eosinophils 0.2 10^3/uL (0-0.7); Absolute Immature Granulocytes 0.1 10^3/uL (0-0.05); Absolute Lymphocytes 1.7 10^3/uL (1.2-3.4); Absolute Monocytes 0.6 10^3/uL (0.1-0.6); Absolute Neutrophils 3.9 10^3/uL (1.4-6.5); Hematocrit 24.5 % (39.0-52.0); Hemoglobin 7.9 g/dL (13.0-18.0); Mean Corp Hgb Conc. 32.2 g/dL (33.0-37.0); Mean Corpuscular Hgb 31.7 pg (27.0-31.0); Mean Corpuscular Volume 98.4 fL (80.0-94.0); Mean Platelet Volume 10.4 fL (7.4-10.4); Nucleated Red Blood Cells % 0 % (-); Platelet Count 126 10^3/uL (130-400); Red Blood Cell Count 2.49 10^6/uL (4.70-6.10); White Blood Cell Count 6.4 10^3/uL (4.8-10.8)
[2024-12-24 07:26] LABS: ALT (SGPT) < 10 U/L (0-50); AST (SGOT) 34 U/L (17-59); Albumin 2.8 g/dl (3.5-5.0); Alkaline Phosphatase 56 U/L (38-126); Blood Urea Nitrogen 50 mg/dl (9-20); Calcium 11.2 mg/dl (8.4-10.2); Carbon Dioxide 23 mmol/L (22-30); Chloride 106 mmol/L (98-107); Estimated Creatinine Clearance 12 ml/min; Glucose 88 mg/dl (70-99); Sodium 139 mmol/L (135-145); Total Bilirubin 0.6 mg/dl (0.2-1.3); Total Protein 5.2 g/dl (6.3-8.2); eGFR 13.34
[2024-12-24 07:44] VITALS: BP 108/65
[2024-12-24] MEDS: VITAMIN D3 (cholecalciferol) 50 MCG PO (09:38)
[2024-12-24] MEDS: HEPARIN 5000 UNITS SC ×2 (09:38→20:29)
[2024-12-24] MEDS: ASPIR LOW (ENTERIC COATED) 81 MG PO (09:38)
[2024-12-24] MEDS: PROTONIX 40 MG PO ×2 (09:38→20:29)
[2024-12-24] MEDS: SODIUM BICARBONATE 650 MG PO ×2 (09:38→20:29)
[2024-12-24] MEDS: TRICOR 145 MG PO (09:38)
[2024-12-24] MEDS: DESENEX/MITRAZOL/ZEASORB 1 APPLIC TOPICAL ×2 (09:39→20:30)
--- NOTE | 2024-12-24 09:52 | W.PN.HOSP.TC ---
Today's Communication/Plan
-
Discharge depending on vascular surgery's evaluation of hematoma formation
If no further observation required then likely able to discharge to facility later today or tomorrow
If observation/evaluation of hematoma is still required may require evacuation in the next upcoming days if not sooner
Assessment / Plan
Assessment / Plan
NAD
Scleral Anicteric, wearing corrective lenses
DMM
No JVD
CTABL
RRR, S1/S2
Soft, NT, ND, BS+
Left upper extremity wrapped in Gabriele bandage
- There appears to be more swelling on the left upper arm which is nonpitting as his watch appears to be extremely tight
-However he still remains to have full range of motion of left arm from the elbow
Warm, Dry
AAOx3
Calm
Acute metabolic encephalopathy now resolved. This was likely secondary to acute infectious process with pneumonia.
Pneumonia community-acquired completed total 5-day course of Rocephin and azithromycin
Pleural effusion chest ultrasound confirmed but small therefore, no indication for thoracentesis at this time
Asymptomatic bacteriuria will/contamination in setting of chronic Coburn without evidence of dysuria urinary frequency. Continue tamsulosin posterolateral
MONA on CKD stage IV - V with a peak creatinine of 5.6 now downtrending at 4.2. Avoid nephrotoxins hypotension. Monitor urinary output.
S/p AV fistula creation on 12/22. Vascular surgery noted postop hematoma at site. Recommended to observe overnight. Ready message vascular surgery this morning over [facility]. Will be evaluated later today. If no further worsening in
hematoma then potential discharge to previous facility
Metabolic acidosis related to CKD stage V. Continue alkali therapy per KDIGO guidelines which recommend if persistent bicarb less than 22 and CKD to start alkali therapy to prevent further/slow renal function if worsening
Anticipated Discharge: Within 24 hours
Subjective/Interval History
-
Date of Service: December 24, 2024
Seen and examined. No new complaints. No acute overnight events.
Objective Data
-
Labs:
Laboratory Results
12/24/24
04:50
WBC 6.4
Hgb 7.9 L
Hct 24.5 L
Plt Count 126 L
Sodium 139
Potassium 5.0
Chloride 106
Carbon Dioxide 23
BUN 50 H
Creatinine 4.2 H*
Glucose 88
Calcium 11.2 H
Total Bilirubin 0.6
AST 34
ALT < 10
Alkaline Phosphatase 56
Vital Signs:
Vital Signs
Temp Pulse Resp BP Pulse Ox
98.2 F 86 20 108/65 98
12/24/24 07:44 12/24/24 07:44 12/24/24 07:44 12/24/24 07:44 12/24/24 07:44
I&O
12/23/24 12/24/24 12/25/24
06:59 06:59 06:59
Intake Total 1419 / 1419
Output Total 1400 / 1400 1860 / 1860
Balance -1400 / -1400 -441 / -441
--- NOTE | 2024-12-24 10:45 | W.PN.UPDATE ---
Update Note
Progress Note Update
Seen and examined. Patient without significant complaints. Left upper extremity hematoma softer. Incision is clean dry and intact. Arm throughout its entirety is soft. Hand is warm. Plan/doing better today. Okay for discharge now from
vascular perspective. Discussed with Dr. Escobedo.
--- NOTE | 2024-12-24 11:22 | W.PN.NEPH.PH ---
Today's Communication / Plan
-
Stable for discharge
Minimal pain from fistula surgery
Assessment/Plan
-
Assessment:
MELONY with CKD5-Dr Iverson
Acute metabolic encephalopathy
Community-acquired pneumonia
Chronic Driscoll catheter
BPH with chronic bladder outlet obstruction
Gross hematuria with blood clots-Occurred in the ED after Driscoll exchange
S/p left nephrectomy 1984
AoCKD
Hypercalcemia
H/O parathyroidectomy
Chronic dysphagia
H/O GE junction stenosis s/p esophageal dilation
H/O achalasia-Had esophageal dilation in August 2024 with GI
Orthostatic hypotension
Primary hypertension
Metastatic renal cell carcinoma
Liver and bone metastases
Immunosuppressed from chemotherapy-Home regimen includes chemotherapy with Cabometyx 20 mg daily, immunotherapy every 2 weeks
-Follows with Dr. Platt from oncology
Hypothyroidism
GERD
Dyslipidemia
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
Plan
Melony with CKD-cr slowly improving to 4.9�4.2 which is about his baseline of late
hematuria post recent driscoll exchange-cleared now
renal US shows solitary kidney non obst stone
BP stable with known orthostatic hypotension on midodrine
Continue holding Amlodipine , as needed midodrine provided for blood pressures= BP stable
pt has been in preparation for [employer] from last visit Dr Iverson in october
Status post AVF placement on 12/22/2024
no emergent need of HD
No changes made today
Patient stable for discharge from nephrology standpoint
-
-
Date of Service: December 24, 2024
CC / HPI / ROS
-
Chief Complaint:
MELONY with CKD5
History of Present Illness:
cr slightly better near baseline 4.2
BP stable off meds
k normal
Review of Systems:
no cp or sob
no cough
no n.v
appetite is poor chronically
Labs
-
Labs:
WBC 6.4 10^3/uL (4.8-10.8) 12/24/24 04:50
RBC 2.49 10^6/uL (4.70-6.10) L 12/24/24 04:50
Hgb 7.9 g/dL (13.0-18.0) L 12/24/24 04:50
Hct 24.5 % (39.0-52.0) L 12/24/24 04:50
Plt Count 126 10^3/uL (130-400) L 12/24/24 04:50
Sodium 139 mmol/L (135-145) 12/24/24 04:50
Potassium 5.0 mmol/L (3.5-5.1) 12/24/24 04:50
Chloride 106 mmol/L (98-107) 12/24/24 04:50
Carbon Dioxide 23 mmol/L (22-30) 12/24/24 04:50
BUN 50 mg/dl (9-20) H 12/24/24 04:50
Creatinine 4.2 mg/dL (0.7-1.3) H* 12/24/24 04:50
eGFR 13.34 12/24/24 04:50
Glucose 88 mg/dl (70-99) 12/24/24 04:50
Calcium 11.2 mg/dl (8.4-10.2) H 12/24/24 04:50
Albumin 2.8 g/dl (3.5-5.0) L 12/24/24 04:50
Physical Exam
-
Vital Signs:
Vital Signs
Temp Pulse Resp BP Pulse Ox
98.2 F 86 20 108/65 98
12/24/24 07:44 12/24/24 07:44 12/24/24 07:44 12/24/24 07:44 12/24/24 07:44
[2024-12-24] MEDS: FLOMAX 0.8 MG PO (12:31)
--- NOTE | 2024-12-24 12:42 | CM ---
Addendum entered by Yovana Vila 12/24/24 13:16:
[facility] unable to accept patient today
Contact sonCarlos Eduardo, to coordinate transport
Plan: Return to [facility] tomorrow
Original Note:
Plan: Return to [facility] today if facility can accept patient today
Spoke with SonCarlos Eduardo # [phone]; he reported that grandsonRamírez, will provide transport
[facility]
Report # [phone]
--- NOTE | 2024-12-24 14:25 | PTCARENOTE ---
Patient sleepy all day. Patient encourage to sit in chair for meals. Patient OOB with min assist x1 and walker. Patient in chair for 45 minutes and wanted to get back in bed. Patient did not eat lunch, patient states, 'That food has no taste. I am
not eating.' RN offered to order a new lunch tray, patient refused. Patient has no c/o pain, driscoll care completed.
[2024-12-24 15:51] VITALS: BP 106/63
[2024-12-24] MEDS: LIPITOR 20 MG PO (20:29)
[2024-12-24] MEDS: MELATONIN 5 MG PO (20:29)
[2024-12-24 23:00] VITALS: BP 109/47
[2024-12-25] MEDS: SYNTHROID 75 MCG PO (06:04)
[2024-12-25 06:20] LABS: % Basophils 0.5 % (0-2); % Eosinophils 2.3 % (0-6); % Immature Granulocytes 1.2 % (0-0.5); % Lymphocytes 27.8 % (20.5-51.1); % Monocytes 9.3 % (1.7-9.3); % Neutrophils 58.9 % (42.2-75.2); Absolute Eosinophils 0.1 10^3/uL (0-0.7); Absolute Immature Granulocytes 0.1 10^3/uL (0-0.05); Absolute Lymphocytes 1.7 10^3/uL (1.2-3.4); Absolute Monocytes 0.6 10^3/uL (0.1-0.6); Absolute Neutrophils 3.5 10^3/uL (1.4-6.5); Hematocrit 26.2 % (39.0-52.0); Hemoglobin 8.4 g/dL (13.0-18.0); Mean Corp Hgb Conc. 32.1 g/dL (33.0-37.0); Mean Corpuscular Hgb 31.6 pg (27.0-31.0); Mean Corpuscular Volume 98.5 fL (80.0-94.0); Nucleated Red Blood Cells % 0 % (-); Platelet Count 121 10^3/uL (130-400); Red Blood Cell Count 2.66 10^6/uL (4.70-6.10); Red Cell Dist. Width 15.9 % (11.5-14.5)
[2024-12-25 06:32] LABS: ALT (SGPT) < 10 U/L (0-50); AST (SGOT) 37 U/L (17-59); Albumin 2.9 g/dl (3.5-5.0); Alkaline Phosphatase 56 U/L (38-126); Blood Urea Nitrogen 51 mg/dl (9-20); Calcium 11.8 mg/dl (8.4-10.2); Carbon Dioxide 25 mmol/L (22-30); Chloride 106 mmol/L (98-107); Estimated Creatinine Clearance 12 ml/min; Glucose 95 mg/dl (70-99); Potassium 5.3 mmol/L (3.5-5.1); Sodium 138 mmol/L (135-145); Total Bilirubin 0.7 mg/dl (0.2-1.3); Total Protein 5.3 g/dl (6.3-8.2); eGFR 13.74
[2024-12-25 07:42] VITALS: BP 122/65
--- NOTE | 2024-12-25 07:45 | W.PN.VS ---
Addendum entered and electronically signed by Emeka Duran MD 12/25/24 10:10:
Seen and examined with SANDRA Rolle. Agree with findings as noted below. Agree with plan as discussed and noted below.
Original Note:
Today's Communication / Plan
-
Patient seen and examined at bedside with Dr. Emeka Duran, below plan reviewed with attending.
Assessment/Plan
-
Postoperative day #3.
Stable for discharge
Follow-up placed in discharge instructions
We will sign off please call with questions or concerns
Subjective Data
-
Date of Service: December 25, 2024
Patient seen and evaluated at bedside, offers no complaints. Reports well-managed postoperative pain at left upper extremity AV fistula creation site.
Objective Data
-
Vital Signs
Temp Pulse Resp BP Pulse Ox
97.4 F 81 14 122/65 100
12/25/24 07:42 12/25/24 07:42 12/25/24 07:42 12/25/24 07:42 12/25/24 07:42
Intake and Output
12/24/24 12/25/24 12/26/24
06:59 06:59 06:59
Intake Total 1419 / 1419 960 / 960
Output Total 1860 / 1860 1250 / 1250
Balance -441 / -441 -290 / -290
Intake:
Oral fluids 1419 / 1419 960 / 960
Output:
Urine, [place] 1250 / 1250
Urine, Voided 1860 / 1860
Lab Results
12/25/24 05:50
12/25/24 05:50
Calcium 11.8 mg/dl (8.4-10.2) H 12/25/24 05:50
Magnesium 2.1 mg/dl (1.6-2.3) 12/19/24 07:34
Total Bilirubin 0.7 mg/dl (0.2-1.3) 12/25/24 05:50
AST 37 U/L (17-59) 12/25/24 05:50
ALT < 10 U/L (0-50) 12/25/24 05:50
Alkaline Phosphatase 56 U/L (38-126) 12/25/24 05:50
Total Protein 5.3 g/dl (6.3-8.2) L 12/25/24 05:50
Albumin 2.9 g/dl (3.5-5.0) L 12/25/24 05:50
Physical Exam
-
Afebrile.
Ecchymosis unchanged. There is a moderate hematoma deep to the incision, scantly improved from prior assessment, the arm is soft. Incision is clean dry intact. Nonpulsatile. Good thrill in the fistula.
[2024-12-25] MEDS: HEPARIN 5000 UNITS SC ×2 (09:09→20:17)
[2024-12-25] MEDS: PROTONIX 40 MG PO ×2 (09:09→20:16)
[2024-12-25] MEDS: ASPIR LOW (ENTERIC COATED) 81 MG PO (09:09)
[2024-12-25] MEDS: TRICOR 145 MG PO (09:09)
[2024-12-25] MEDS: PROSCAR 5 MG PO (09:09)
[2024-12-25] MEDS: VITAMIN D3 (cholecalciferol) 50 MCG PO (09:09)
[2024-12-25] MEDS: SODIUM BICARBONATE 650 MG PO ×2 (09:09→20:17)
[2024-12-25] MEDS: DESENEX/MITRAZOL/ZEASORB 1 APPLIC TOPICAL ×2 (09:11→20:20)
--- NOTE | 2024-12-25 11:14 | W.PN.NEPH.PH ---
Today's Communication / Plan
-
Pamidronate
Assessment/Plan
-
Assessment:
MONA with CKD5-Dr Iverson
Acute metabolic encephalopathy
Community-acquired pneumonia
Chronic Coburn catheter
BPH with chronic bladder outlet obstruction
Gross hematuria with blood clots-Occurred in the ED after Coburn exchange
S/p left nephrectomy 1984
AoCKD
Hypercalcemia
H/O parathyroidectomy
Chronic dysphagia
H/O GE junction stenosis s/p esophageal dilation
H/O achalasia-Had esophageal dilation in August 2024 with GI
Orthostatic hypotension
Primary hypertension
Metastatic renal cell carcinoma
Liver and bone metastases
Immunosuppressed from chemotherapy-Home regimen includes chemotherapy with Cabometyx 20 mg daily, immunotherapy every 2 weeks
-Follows with Dr. Platt from oncology
Hypothyroidism
GERD
Dyslipidemia
Hypocalcemia
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
Plan
Follow BMP
BP stable without midodrine
Hypercalcemia is new this admission
Workup for hypercalcemia ordered
pamidronate today
IV fluids
No emergent HD needs today
-
-
Date of Service: December 25, 2024
CC / HPI / ROS
-
Chief Complaint:
MONA with CKD5
History of Present Illness:
cr slightly better near baseline 4.1
BP stable off meds
k normal
acidosis controlled with bicarbonate
Review of Systems:
no cp or sob
no cough
no N/V
appetite is poor chronically
Labs
-
Labs:
WBC 6.0 10^3/uL (4.8-10.8) 12/25/24 05:50
RBC 2.66 10^6/uL (4.70-6.10) L 12/25/24 05:50
Hgb 8.4 g/dL (13.0-18.0) L 12/25/24 05:50
Hct 26.2 % (39.0-52.0) L 12/25/24 05:50
Plt Count 121 10^3/uL (130-400) L 12/25/24 05:50
Sodium 138 mmol/L (135-145) 12/25/24 05:50
Potassium 5.3 mmol/L (3.5-5.1) H 12/25/24 05:50
Chloride 106 mmol/L (98-107) 12/25/24 05:50
Carbon Dioxide 25 mmol/L (22-30) 12/25/24 05:50
BUN 51 mg/dl (9-20) H 12/25/24 05:50
Creatinine 4.1 mg/dL (0.7-1.3) H* 12/25/24 05:50
eGFR 13.74 12/25/24 05:50
Glucose 95 mg/dl (70-99) 12/25/24 05:50
Calcium 11.8 mg/dl (8.4-10.2) H 12/25/24 05:50
Albumin 2.9 g/dl (3.5-5.0) L 12/25/24 05:50
Physical Exam
-
Vital Signs:
Vital Signs
Temp Pulse Resp BP Pulse Ox
97.4 F 81 14 122/65 95
12/25/24 07:42 12/25/24 07:42 12/25/24 07:42 12/25/24 07:42 12/25/24 08:40
Cardiovascular:: Regular rate and rhythm
Respiratory:: Bilateral: Coarse
Lung Excursion:: Normal
Abdomen:: Nontender and Soft
Bowel Sounds:: Normal
Extremity Edema:: None: Bilateral:
Other Findings::
AV fistula with good thrill and bruit
--- NOTE | 2024-12-25 11:16 | CM ---
Patient seen at bedside
IMM explained. In chart
Spoke with [facility] at [facility] & can accept patient today with SHAWN Perez
Called Marina from [facility] &
PLAN: [facility]
Report # [phone]

[facility]
[2024-12-25] MEDS: NSS 1000 IV (11:49)
[2024-12-25] MEDS: AREDIA 260 MG IV (11:49)
[2024-12-25] MEDS: FLOMAX 0.8 MG PO (11:54)
[2024-12-25 12:13] LABS: Vitamin D, 25-OH*** 64.9 ng/mL (30-80)
--- NOTE | 2024-12-25 13:39 | W.PN.HOSP.TC ---
Addendum entered and electronically signed by Rikki Fierro MD 12/25/24 17:28:
Seen and examined by me independently in collaboration with the medical device.
Lab data and imaging data reviewed.
Addendum as below :
Continue with hypercalcemia evaluation and treatment. Discussed with nephrology-unclear etiology as of now.
Reconsult PT OT eval
DC when stable from hypercalcemia standpoint
Original Note:
Today's Communication/Plan
-
pending hypercalcemia workup
hematoma resolving
pamidronate
hopeful d/c tomorrow
Updated the son over the phone and he is aware of current plans
Assessment / Plan
Assessment / Plan
84-year-old male with history of CKD stage V (pending HD), metastatic RCC s/p left nephrectomy, bone and liver metastases, chronic Driscoll catheter, chronic dysphagia 2/2 GE junction stenosis s/p esophageal dilation (09/27/24), hypothyroidism,
orthostasis, BPH, hypertension, H/O achalasia, who presents with acute metabolic encephalopathy, community-acquired pneumonia, asymptomatic bacteriuria, nonanion gap metabolic acidosis
#Hypercalcemia
#H/o parathyroidectomy
#h/o bone mets
- Upon arrival serum calcium 11.0 with albumin 3.9; likely dehydrated, no signs or sx of hypercalcemia
- Initially resolved with IVF, likely from dehydration -- now 11.8
- hypercalcemia workup per nephro, s/p pamidronate
#AV Fistula Creation
#Post-op hematoma
- post op hematoma from 12/22/2024, improving
- s/p AVF creation, had hematoma -- obs over weekend, stable -- cleared for d/c today to [facility]
#Ambulatory dysfunction
- PT/OT consult. Going back to [facility]isted living with more VN care
#Acute metabolic encephalopathy, likely secondary to pneumonia (resolved)
Question of polypharmacy/improper medication use
- UA with pyuria, leuks, RBCs. Urine culture negative.
- CT head without acute abnormalities
- Continue to hold trazodone, tramadol, other sedating agents.
- Mental status at baseline. C/t monitor mental status clinically
#Community-acquired pneumonia
- Chest x-ray with mild left lower lobe PNA. possible trace parapneumonic effusion.
- Cipro started in ED. switched to ceftriaxone/azithromycin. Completed 5d course of Ceftriaxone/Azithromycin
- L Chest US showing minimal L pleural effusion. No need for intervention or tap at this time
- Remains without respiratory symptoms
#Asymptomatic bacteriuria, chronic Driscoll catheter (last changed on admission 12/16)
- h/o BPH with chronic bladder outlet obstruction
- Noted to have positive UA, apparent urine sediment noted in Driscoll bag; no fever or leukocytosis. Urine cx negative
- C/w driscoll, home tamsulosin and dutasteride
#Gross hematuria, likely traumatic secondary to Driscoll exchange (resolved)
- Renal US shows no obstruction, some nonobstructing renal stones
- Outpt follow up with Dr. Angela for management/surveillance of nonobstructing kidney stones in solitary kidney and chronic urinary retention
#Anemia, multifactorial
- Likely secondary to chronic disease, secondary to CKD V and Iron deficiency
- Ferritin high, TIBC low, total iron/%sat low.
- Follow CBC
- transfuse if hgb <7
#MONA on CKD stage V, likely pre-renal (secondary to dehydration)
- Baseline creatinine 4, 5.6 on arrival.
- Cr improved with IVF -- d/c IVF
- c/t avoid nephrotoxic agents strictly, renally dose meds
- Appreciate nephro input
- c/t monitor bmp
#Non-Anion gap metabolic acidosis
- Secondary to MONA on CKD Stage V
- Follow BMP
#Anxiety/depression
Patient shares that he has been depressed since his passed 3 years ago. Describes racing thoughts.
- Can consider Remeron upon discharge
- Recommend outpatient PCP follow-up
#Chronic dysphagia
#h/o GE junction stenosis s/p esophageal dilation
#h/o achalasia
- Had esophageal dilation in August 2024 with GI
- Speech therapy evaluation with recommendations for regular solids and thin liquids, meds in applesauce, aspiration precautions.
#Orthostatic hypotension
#Primary hypertension
- No known history of hypertensive systemic disease
- Home medications also included midodrine 5 mg as needed for SBP <100 or symptomatic dizziness
- Blood pressure stable as of now
- holding amlodipine for orthostatic hypotension
#Metastatic renal cell carcinoma
#Liver and bone metastases
#Immunosuppressed from chemotherapy
- Home regimen includes chemotherapy with Cabometyx 20 mg daily, immunotherapy every 2 weeks
- Follows with Dr. Platt from oncology
#Hypothyroidism
- Unclear etiology, home regimen includes levothyroxine 75 mcg daily
- TSH normal
#GERD
- C/w pantoprazole 40 mg twice daily
#Dyslipidemia
- No known ASCVD history, home medications include moderate intensity statin
- Home meds also include daily aspirin for primary prevention
#Moderate Protein Calorie Malnutrition
- Pts weight previous admission listed as 158 lbs (10/17) reflective of a 17 lb (11%) weight loss in two months, significant. Encouraged small frequent meals and snacks.
#Stage II pressure injury (Coccyx), POA - dry and intact, adhesive foam placed.
DVT prophylaxis: SQ heparin
Diet: regular/thin, renal (low K, low Na)
CODE STATUS: Full code
Anticipated Discharge: 24 - 48 hours
Subjective/Interval History
-
Date of Service: December 25, 2024
Feeling well today, no acute complaints. No pain in the L arm.
Objective Data
-
Labs:
Laboratory Results
12/25/24 12/25/24
05:50 11:14
WBC 6.0
Hgb 8.4 L
Hct 26.2 L
Plt Count 121 L
Sodium 138
Potassium 5.3 H
Chloride 106
Carbon Dioxide 25
BUN 51 H
Creatinine 4.1 H*
Glucose 95
Calcium 11.8 H Cancelled
Total Bilirubin 0.7
AST 37
ALT < 10
Alkaline Phosphatase 56
Vital Signs:
Vital Signs
Temp Pulse Resp BP Pulse Ox
97.4 F 81 14 122/65 95
12/25/24 07:42 12/25/24 07:42 12/25/24 07:42 12/25/24 07:42 12/25/24 08:40
I&O
12/24/24 12/25/24 12/26/24
06:59 06:59 06:59
Intake Total 1419 / 1419 960 / 960
Output Total 1860 / 1860 1250 / 1250
Balance -441 / -441 -290 / -290
Review of Systems
-
History Source: Patient
Constitutional: Reports No Symptoms
EENT: Reports No Symptoms Reported
Respiratory: Reports No Symptoms
Cardiac: Reports No Symptoms
Abdomen/GI: Reports No Symptoms
Genitourinary: Reports No Symptoms
Musculoskeletal: Reports No Symptoms
Skin: Reports No Symptoms
Physical Exam
-
General: Well Developed, Well Nourished, No Apparent Distress and Comfortable
HEENT: Normocephalic, Atraumatic, Moist Mucous Membranes, Anicteric, [place] Conjunctivae, Nose Appears Normal and Ears Appear Normal
Respiratory: Clear to Auscultation and Non Labored Respirations; Negative Wheezes, Rales or Rhonchi
Cardiac: Regular Rhythm and S1/S2; Negative Murmur, Rub or Calf Tenderness
GI: Soft, Nontender, Nondistended and Normal Bowel Sounds
Genito-urinary: Clear Urine and Driscoll
Musculoskeletal: No Clubbing, No Cyanosis and No Edema
Skin: Warm, Dry and IV Access / Catheter Site
Neuro: Awake and Alert
Psych: Calm
[2024-12-25 15:37] VITALS: BP 120/68
[2024-12-25 15:49] LABS: Phosphorus 3.4 mg/dl (2.5-4.5)
[2024-12-25 16:11] VITALS: BP 120/68; PULSE 75; O2SAT 100
[2024-12-25] MEDS: MELATONIN 5 MG PO (21:41)
[2024-12-25] MEDS: LIPITOR 20 MG PO (21:41)
[2024-12-25 23:00] VITALS: BP 127/66
[2024-12-26] MEDS: NSS 1000 IV ×3 (06:07→16:34)
[2024-12-26] MEDS: SYNTHROID 75 MCG PO (06:08)
[2024-12-26 07:01] LABS: % Basophils 0.5 % (0-2); % Eosinophils 2.2 % (0-6); % Immature Granulocytes 1.4 % (0-0.5); % Monocytes 8.9 % (1.7-9.3); Absolute Eosinophils 0.1 10^3/uL (0-0.7); Absolute Immature Granulocytes 0.1 10^3/uL (0-0.05); Absolute Lymphocytes 1.5 10^3/uL (1.2-3.4); Absolute Monocytes 0.5 10^3/uL (0.1-0.6); Absolute Neutrophils 3.6 10^3/uL (1.4-6.5); Hematocrit 24.7 % (39.0-52.0); Hemoglobin 8.2 g/dL (13.0-18.0); Mean Corp Hgb Conc. 33.2 g/dL (33.0-37.0); Mean Corpuscular Hgb 32.2 pg (27.0-31.0); Mean Corpuscular Volume 96.9 fL (80.0-94.0); Mean Platelet Volume 10.5 fL (7.4-10.4); Nucleated Red Blood Cells % 0 % (-); Platelet Count 132 10^3/uL (130-400); Red Blood Cell Count 2.55 10^6/uL (4.70-6.10); Red Cell Dist. Width 15.6 % (11.5-14.5); White Blood Cell Count 5.8 10^3/uL (4.8-10.8)
[2024-12-26 07:08] LABS: Blood Urea Nitrogen 50 mg/dl (9-20); Calcium 12.1 mg/dl (8.4-10.2); Carbon Dioxide 24 mmol/L (22-30); Chloride 108 mmol/L (98-107); Estimated Creatinine Clearance 13 ml/min; Glucose 82 mg/dl (70-99); Potassium 5.3 mmol/L (3.5-5.1); Sodium 140 mmol/L (135-145); eGFR 14.15
[2024-12-26 07:33] VITALS: BP 127/62
[2024-12-26] MEDS: VITAMIN D3 (cholecalciferol) 50 MCG PO (08:17)
[2024-12-26] MEDS: TRICOR 145 MG PO (08:17)
[2024-12-26] MEDS: SODIUM BICARBONATE 650 MG PO ×2 (08:17→19:36)
[2024-12-26] MEDS: ASPIR LOW (ENTERIC COATED) 81 MG PO (08:17)
[2024-12-26] MEDS: PROTONIX 40 MG PO ×2 (08:17→19:36)
[2024-12-26] MEDS: HEPARIN 5000 UNITS SC ×2 (08:18→19:37)
--- NOTE | 2024-12-26 08:21 | W.PN.HOSP.TC ---
Addendum entered and electronically signed by Rikki Fierro MD 12/26/24 14:37:
Seen and examined by me independently in collaboration with the manager medical device.
Lab data and imaging data reviewed.
Addendum as below :
Complains of constipation but had a bowel movement 2 days ago. No nausea vomiting. No abdominal pain. Denies any weakness or dizziness.
No respiratory distress. Chest clear anteriorly.
Abdomen soft. Palpable right upper quadrant mass questionable liver. Nontender.
Calcium went up to 12.1.
Calcitonin added.. Patient received pamidronate IV yesterday. Continue to follow calcium and workup labs.
Patient is not sure who is the oncologist cc-will touch base with the family and try to obtain oncology information and see if there is any known prior bony lytic metastatic disease.
CW PT
Original Note:
Today's Communication/Plan
-
Hypercalcemia workup/management per nephro
Hematoma resolving
Assessment / Plan
Assessment / Plan
84-year-old male with history of CKD stage V (pending HD), metastatic RCC s/p left nephrectomy, bone and liver metastases, chronic Driscoll catheter, chronic dysphagia 2/2 GE junction stenosis s/p esophageal dilation (09/27/24), hypothyroidism,
orthostasis, BPH, hypertension, H/O achalasia, who presents with acute metabolic encephalopathy, community-acquired pneumonia, asymptomatic bacteriuria, nonanion gap metabolic acidosis
#Hypercalcemia
#h/o bone mets
#H/o parathyroidectomy (usually hypocalcemic on labs)
- Upon arrival serum calcium 11.0 with albumin 3.9; likely dehydrated, no signs or sx of hypercalcemia at this time
- Initially resolved with IVF, likely from dehydration -- increased again to 11.8 -- PTHrp and Vit D1, 25 pending, Ca 12.1 today
#AV Fistula Creation
#Post-op hematoma
- post op hematoma from 12/22/2024, improving
- s/p AVF creation, had hematoma -- obs over weekend, stable -- cleared for d/c from vascular
#Ambulatory dysfunction
- PT/OT consult. Going back to [facility] living with more VN care
#Acute metabolic encephalopathy, likely secondary to pneumonia (resolved)
Question of polypharmacy/improper medication use
- UA with pyuria, leuks, RBCs. Urine culture negative.
- CT head without acute abnormalities
- Continue to hold trazodone, tramadol, other sedating agents.
- Mental status at baseline. C/t monitor mental status clinically
#Community-acquired pneumonia
- Chest x-ray with mild left lower lobe PNA. possible trace parapneumonic effusion.
- Cipro started in ED. switched to ceftriaxone/azithromycin. Completed 5d course of Ceftriaxone/Azithromycin
- L Chest US showing minimal L pleural effusion. No need for intervention or tap at this time
- Remains without respiratory symptoms
#Asymptomatic bacteriuria, chronic Driscoll catheter (last changed on admission 12/16)
- h/o BPH with chronic bladder outlet obstruction
- Noted to have positive UA, apparent urine sediment noted in Driscoll bag; no fever or leukocytosis. Urine cx negative
- C/w driscoll, home tamsulosin and dutasteride
#Gross hematuria, likely traumatic secondary to Driscoll exchange (resolved)
- Renal US shows no obstruction, some nonobstructing renal stones
- Outpt follow up with Dr. Angela for management/surveillance of nonobstructing kidney stones in solitary kidney and chronic urinary retention
#Anemia, multifactorial
- Likely secondary to chronic disease, secondary to CKD V and Iron deficiency
- Ferritin high, TIBC low, total iron/%sat low.
- Follow CBC
- transfuse if hgb <7
#MONA on CKD stage V, likely pre-renal (secondary to dehydration)
- Baseline creatinine 4, 5.6 on arrival.
- Cr improved with IVF -- d/c IVF
- c/t avoid nephrotoxic agents strictly, renally dose meds
- Appreciate nephro input
- c/t monitor bmp
#Non-Anion gap metabolic acidosis
- Secondary to MONA on CKD Stage V
- Follow BMP
#Anxiety/depression
Patient shares that he has been depressed since his passed 3 years ago. Describes racing thoughts.
- Can consider Remeron upon discharge
- Recommend outpatient PCP follow-up
#Chronic dysphagia
#h/o GE junction stenosis s/p esophageal dilation
#h/o achalasia
- Had esophageal dilation in August 2024 with GI
- Speech therapy evaluation with recommendations for regular solids and thin liquids, meds in applesauce, aspiration precautions.
#Orthostatic hypotension
#Primary hypertension
- No known history of hypertensive systemic disease
- Home medications also included midodrine 5 mg as needed for SBP <100 or symptomatic dizziness
- Blood pressure stable as of now
- holding amlodipine for orthostatic hypotension
#Metastatic renal cell carcinoma
#Liver and bone metastases
#Immunosuppressed from chemotherapy
- Home regimen includes chemotherapy with Cabometyx 20 mg daily, immunotherapy every 2 weeks
- Follows with Dr. Platt from oncology
#Hypothyroidism
- Unclear etiology, home regimen includes levothyroxine 75 mcg daily
- TSH normal
#GERD
- C/w pantoprazole 40 mg twice daily
#Dyslipidemia
- No known ASCVD history, home medications include moderate intensity statin
- Home meds also include daily aspirin for primary prevention
#Moderate Protein Calorie Malnutrition
- Pts weight previous admission listed as 158 lbs (10/17) reflective of a 17 lb (11%) weight loss in two months, significant. Encouraged small frequent meals and snacks.
#Stage II pressure injury (Coccyx), POA - dry and intact, adhesive foam placed.
DVT prophylaxis: SQ heparin
Diet: regular/thin, renal (low K, low Na)
CODE STATUS: Full code
Anticipated Discharge: 24 - 48 hours
Subjective/Interval History
-
Date of Service: December 26, 2024
Feels well, no acute complaints. No overnight event.s
Objective Data
-
Labs:
Laboratory Results
12/26/24
06:28
WBC 5.8
Hgb 8.2 L
Hct 24.7 L
Plt Count 132
Sodium 140
Potassium 5.3 H
Chloride 108 H
Carbon Dioxide 24
BUN 50 H
Creatinine 4.0 H
Glucose 82
Calcium 12.1 H
Vital Signs:
Vital Signs
Temp Pulse Resp BP Pulse Ox
97.6 F 80 16 127/62 99
12/26/24 07:33 12/26/24 07:33 12/26/24 07:33 12/26/24 07:33 12/26/24 07:33
I&O
12/25/24 12/26/24 12/27/24
06:59 06:59 06:59
Intake Total 960 / 960 840 / 840
Output Total 1250 / 1250 950 / 950
Balance -290 / -290 -110 / -110
Review of Systems
-
History Source: Patient
All other systems: Reviewed and negative
Constitutional: Reports No Symptoms
EENT: Reports No Symptoms Reported
Respiratory: Reports No Symptoms
Cardiac: Reports No Symptoms
Abdomen/GI: Reports No Symptoms
Genitourinary: Reports No Symptoms
Musculoskeletal: Reports No Symptoms
Neuro: Reports No Symptoms
Physical Exam
-
General: Well Developed, Well Nourished, No Apparent Distress and Comfortable
HEENT: Normocephalic, Atraumatic, Moist Mucous Membranes, Anicteric, [place] Conjunctivae, Nose Appears Normal and Ears Appear Normal
Respiratory: Clear to Auscultation; Negative Wheezes, Rales or Rhonchi
Cardiac: Regular Rhythm, S1/S2 and Murmur; Negative Rub
GI: Soft, Nontender, Nondistended and Normal Bowel Sounds
Genito-urinary: Clear Urine and Driscoll
Musculoskeletal: No Clubbing, No Cyanosis and No Edema
Skin: Warm, Dry and IV Access / Catheter Site
Neuro: Awake and Alert
[2024-12-26] MEDS: DESENEX/MITRAZOL/ZEASORB 1 APPLIC TOPICAL ×2 (08:29→19:36)
--- NOTE | 2024-12-26 08:57 | W.PN.NEPH.PH ---
Today's Communication / Plan
-
calcitonin
Assessment/Plan
-
Assessment:
MONA with CKD5-Dr Iverson
Acute metabolic encephalopathy
Community-acquired pneumonia
Chronic Coburn catheter
BPH with chronic bladder outlet obstruction
Gross hematuria with blood clots-Occurred in the ED after Coburn exchange
S/p left nephrectomy 1984
AoCKD
Hypercalcemia
H/O parathyroidectomy
Chronic dysphagia
H/O GE junction stenosis s/p esophageal dilation
H/O achalasia-Had esophageal dilation in August 2024 with GI
Orthostatic hypotension
Primary hypertension
Metastatic renal cell carcinoma
Liver and bone metastases
Immunosuppressed from chemotherapy-Home regimen includes chemotherapy with Cabometyx 20 mg daily, immunotherapy every 2 weeks
-Follows with Dr. Platt from oncology
Hypothyroidism
GERD
Dyslipidemia
Hypocalcemia
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
Plan
Follow BMP
BP stable without midodrine
Hypercalcemia is new this admission
Workup for hypercalcemia pending
pamidronate 12/25/2024
Calcitonin today
IV fluids continue, increase rate to 125 mL/h
No emergent HD needs today
-
-
Date of Service: December 26, 2024
CC / HPI / ROS
-
Chief Complaint:
MONA with CKD5
History of Present Illness:
cr slightly better near baseline 4.0
BP stable off meds
k normal
acidosis controlled with bicarbonate
Calcium up to 12.1
Review of Systems:
no cp or sob
no cough
no N/V
appetite is poor chronically
thought date was 11/22/24
Labs
-
Labs:
WBC 5.8 10^3/uL (4.8-10.8) 12/26/24 06:28
RBC 2.55 10^6/uL (4.70-6.10) L 12/26/24 06:28
Hgb 8.2 g/dL (13.0-18.0) L 12/26/24 06:28
Hct 24.7 % (39.0-52.0) L 12/26/24 06:28
Plt Count 132 10^3/uL (130-400) 12/26/24 06:28
Sodium 140 mmol/L (135-145) 12/26/24 06:28
Potassium 5.3 mmol/L (3.5-5.1) H 12/26/24 06:28
Chloride 108 mmol/L (98-107) H 12/26/24 06:28
Carbon Dioxide 24 mmol/L (22-30) 12/26/24 06:28
BUN 50 mg/dl (9-20) H 12/26/24 06:28
Creatinine 4.0 mg/dL (0.7-1.3) H 12/26/24 06:28
eGFR 14.15 12/26/24 06:28
Glucose 82 mg/dl (70-99) 12/26/24 06:28
Calcium 12.1 mg/dl (8.4-10.2) H 12/26/24 06:28
Phosphorus Cancelled 12/25/24 11:14
Albumin 2.9 g/dl (3.5-5.0) L 12/25/24 05:50
Physical Exam
-
Vital Signs:
Vital Signs
Temp Pulse Resp BP Pulse Ox
97.6 F 80 16 127/62 99
12/26/24 07:33 12/26/24 07:33 12/26/24 07:33 12/26/24 07:33 12/26/24 07:33
Cardiovascular:: Regular rate and rhythm
Respiratory:: Bilateral: Coarse
Lung Excursion:: Normal
Abdomen:: Nontender and Soft
Bowel Sounds:: Normal
Extremity Edema:: None: Bilateral:
[2024-12-26 09:00] VITALS: BMI 21.2
[2024-12-26] MEDS: CALCIMAR/CALCITONIN 400 UNITS/ 2 ML 250 UNITS SC ×2 (10:21→20:23)
[2024-12-26] MEDS: FLOMAX 0.8 MG PO (11:02)
[2024-12-26] MEDS: COLACE 100 MG PO ×2 (12:10→20:24)
[2024-12-26] MEDS: MIRALAX 17 GRAMS PO (12:10)
[2024-12-26 15:18] VITALS: BP 132/67
[2024-12-26 15:56] VITALS: BP 132/68; PULSE 82; O2SAT 98
[2024-12-26] MEDS: MELATONIN 5 MG PO (22:34)
[2024-12-26] MEDS: LIPITOR 20 MG PO (22:34)
[2024-12-26 23:00] VITALS: BP 131/71
[2024-12-27] MEDS: NSS 1000 IV ×2 (01:22→10:34)
[2024-12-27] MEDS: SYNTHROID 75 MCG PO (05:10)
[2024-12-27 07:24] VITALS: BP 118/59
--- NOTE | 2024-12-27 08:46 | W.PN.HOSP.TC ---
Addendum entered and electronically signed by Rikki Fierro MD 12/27/24 16:12:
Seen and examined by me independently in collaboration with the medical coordinator pesticide use.
Lab data and imaging data reviewed.
Addendum as below :
Patient feels improved with regards to strength. Improving hypercalcemia noted. S/p pamidronate and currently on calcitonin. Nephrology working up for hypercalcemia.
We were able to touch base with primary oncologist in [place] -he apparently had hypercalcemia with his malignancy which resolved with treatments . Patient has not been seeing her recently and also did not update his PET scan-it may be
because of the distance that she was recommending if the patient wants to see somebody locally here. Discussed with the patient and the son who would like to switch over to oncology here-will consult [facility].
If calcium continues to be stable will discharge patient home and outpatient follow-up.
Total time spent on today's encounter was 52 minutes which included time spent in counseling the patient/family regarding diagnosis and treatment plan as listed above, goals of care, and symptom management. Case was discussed with nursing staff,
specialists, and care coordinators/case management. All labs and imaging personally reviewed by me. Remainder the time spent in detailed review of previous records, lab data, imaging, and other medical provider documentation.
Original Note:
Today's Communication/Plan
-
c/t trend calcium
Assessment / Plan
Assessment / Plan
84-year-old male with history of CKD stage V (pending HD), metastatic RCC s/p left nephrectomy, bone and liver metastases, chronic Driscoll catheter, chronic dysphagia 2/2 GE junction stenosis s/p esophageal dilation (09/27/24), hypothyroidism,
orthostasis, BPH, hypertension, H/O achalasia, who presents with acute metabolic encephalopathy, community-acquired pneumonia, asymptomatic bacteriuria, nonanion gap metabolic acidosis
Spoke with Dr. Hoover, patient's Oncologist -- pt presented to her with bone mets and hypercalcemia which improved and stabilized with chemo Xgeva. However patient has not gotten repeat PET imaging from July 2024 and has not had treatment in 3
months due to repeated hospital visits. Spoke to family who is agreeable to switch oncology to [place] [facility] for continuing care and follow up.
#Hypercalcemia
#h/o bone mets
#H/o parathyroidectomy (usually hypocalcemic on labs)
- Upon arrival serum calcium 11.0 with albumin 3.9
- Initially resolved with IVF, likely from dehydration -- increased again to 11.8 -- PTHrp and Vit D1, 25 pending,
- given pamidronate, given calcitonin-- calcium improving but still elevated (possible contribution of worsening metastatic disease)
- observe bmp, no signs or sx of hypercalcemia at that time
#AV Fistula Creation
#Post-op hematoma
- post op hematoma from 12/22/2024, improving
- s/p AVF creation, had hematoma -- obs over weekend, stable -- cleared for d/c from vascular
#Ambulatory dysfunction
- PT/OT consulted. Going back to Assisted living with more VN care pending medical stabilization
#Acute metabolic encephalopathy, likely secondary to pneumonia (resolved)
Question of polypharmacy/improper medication use
- UA with pyuria, leuks, RBCs. Urine culture negative.
- CT head without acute abnormalities
- Continue to hold trazodone, tramadol, other sedating agents.
- Mental status at baseline. C/t monitor mental status clinically
#Community-acquired pneumonia (resolved)
- Chest x-ray with mild left lower lobe PNA. possible trace parapneumonic effusion.
- Cipro started in ED. switched to ceftriaxone/azithromycin. Completed 5d course of Ceftriaxone/Azithromycin
- L Chest US showing minimal L pleural effusion. No need for intervention or tap at this time
- Remains without respiratory symptoms
#Asymptomatic bacteriuria, chronic Driscoll catheter (last changed on admission 12/16)
- h/o BPH with chronic bladder outlet obstruction
- Noted to have positive UA, apparent urine sediment noted in Driscoll bag; no fever or leukocytosis. Urine cx negative
- C/w driscoll, home tamsulosin and dutasteride
#Gross hematuria, likely traumatic secondary to Driscoll exchange (resolved)
- Renal US shows no obstruction, some nonobstructing renal stones
- Outpt follow up with Dr. Angela for management/surveillance of nonobstructing kidney stones in solitary kidney and chronic urinary retention
#Anemia, multifactorial
- Likely secondary to chronic disease, secondary to CKD V/ESRD and Iron deficiency
- Ferritin high, TIBC low, total iron/%sat low.
- Follow CBC
- transfuse if hgb <7
#MONA on CKD stage V, likely pre-renal (secondary to dehydration)
- Baseline creatinine 4, 5.6 on arrival.
- Cr improved with IVF -- d/c IVF
- c/t avoid nephrotoxic agents, renally dose meds
- Appreciate nephro input
- c/t monitor bmp
#Non-Anion gap metabolic acidosis
- Secondary to MONA on CKD V/ESRD
- Follow BMP
#Anxiety/depression
- Patient shares that he has been depressed since his passed 3 years ago. Describes racing thoughts.
- Can consider Remeron upon discharge
- Recommend outpatient PCP follow-up
#Chronic dysphagia
#h/o GE junction stenosis s/p esophageal dilation
#h/o achalasia
- Had esophageal dilation in August 2024 with GI
- Speech therapy evaluation with recommendations for regular solids and thin liquids, meds in applesauce, aspiration precautions.
#Orthostatic hypotension
#Primary hypertension
- No known history of hypertensive systemic disease
- Home medications also included midodrine 5 mg as needed for SBP <100 or symptomatic dizziness
- Blood pressure stable as of now
- holding amlodipine for orthostatic hypotension
#Metastatic renal cell carcinoma
#Liver and bone metastases
#Immunosuppressed from chemotherapy
- Home regimen includes chemotherapy with Cabometyx 20 mg daily, immunotherapy every 2 weeks
- Follows with Dr. Platt from oncology
#Hypothyroidism
- Unclear etiology, home regimen includes levothyroxine 75 mcg daily
- TSH normal
#GERD
- C/w pantoprazole 40 mg twice daily
#Dyslipidemia
- No known ASCVD history, home medications include moderate intensity statin
- Home meds also include daily aspirin for primary prevention
#Moderate Protein Calorie Malnutrition
- Pts weight previous admission listed as 158 lbs (10/17) reflective of a 17 lb (11%) weight loss in two months, significant. Encouraged small frequent meals and snacks.
#Stage II pressure injury (Coccyx), POA - dry and intact, adhesive foam placed.
DVT prophylaxis: SQ heparin
Diet: regular/thin, renal (low K, low Na)
CODE STATUS: Full code
Anticipated Discharge: 24 - 48 hours
Subjective/Interval History
-
Date of Service: December 27, 2024
No acute complaints, no overnight events.
Objective Data
-
Labs:
Laboratory Results
12/27/24
06:00
WBC Pending
Hgb Pending
Hct Pending
Plt Count Pending
Sodium Pending
Potassium Pending
Chloride Pending
Carbon Dioxide Pending
BUN Pending
Creatinine Pending
Glucose Pending
Calcium Pending
Total Bilirubin Pending
AST Pending
ALT Pending
Alkaline Phosphatase Pending
Vital Signs:
Vital Signs
Temp Pulse Resp BP Pulse Ox
97.7 F 80 17 118/59 97
12/27/24 07:24 12/27/24 07:24 12/27/24 07:24 12/27/24 07:24 12/27/24 07:24
I&O
12/26/24 12/27/24 12/28/24
06:59 06:59 06:59
Intake Total 840 / 840 1800 / 1800
Output Total 950 / 950 1250 / 1250
Balance -110 / -110 550 / 550
Review of Systems
-
History Source: Patient
Constitutional: Reports No Symptoms
EENT: Reports No Symptoms Reported
Respiratory: Reports No Symptoms
Cardiac: Reports No Symptoms
Abdomen/GI: Reports No Symptoms
Genitourinary: Reports No Symptoms
Musculoskeletal: Reports No Symptoms
Skin: Reports No Symptoms
Physical Exam
-
General: No Apparent Distress and Appears Chronically Ill
HEENT: Normocephalic, Atraumatic, Moist Mucous Membranes, [place] Conjunctivae, Nose Appears Normal and Ears Appear Normal
Respiratory: Clear to Auscultation; Negative Wheezes, Rales or Rhonchi
Cardiac: Regular Rhythm and S1/S2; Negative Murmur or Rub
GI: Soft, Nontender, Nondistended and Normal Bowel Sounds
Musculoskeletal: No Clubbing, No Cyanosis and No Edema
Skin: Warm, Dry and IV Access / Catheter Site
Neuro: Awake, Alert and Oriented
Psych: Calm
[2024-12-27] MEDS: HEPARIN 5000 UNITS SC ×2 (08:57→20:33)
[2024-12-27] MEDS: PROTONIX 40 MG PO ×2 (08:57→20:32)
[2024-12-27] MEDS: SODIUM BICARBONATE 650 MG PO ×2 (08:57→20:32)
[2024-12-27] MEDS: CALCIMAR/CALCITONIN 400 UNITS/ 2 ML 250 UNITS SC ×2 (08:57→20:33)
[2024-12-27] MEDS: ASPIR LOW (ENTERIC COATED) 81 MG PO (08:57)
[2024-12-27] MEDS: PROSCAR 5 MG PO (08:57)
[2024-12-27] MEDS: VITAMIN D3 (cholecalciferol) 50 MCG PO (08:57)
[2024-12-27] MEDS: MIRALAX 17 GRAMS PO (08:57)
[2024-12-27] MEDS: COLACE 100 MG PO ×2 (08:57→20:32)
[2024-12-27] MEDS: TRICOR 145 MG PO (08:57)
[2024-12-27] MEDS: DESENEX/MITRAZOL/ZEASORB 1 APPLIC TOPICAL ×2 (08:58→20:33)
[2024-12-27] MEDS: ZOFRAN 4 MG IV (09:04)
[2024-12-27 09:48] LABS: % Basophils 0.3 % (0-2); % Eosinophils 1.2 % (0-6); % Immature Granulocytes 0.9 % (0-0.5); % Lymphocytes 19.3 % (20.5-51.1); % Monocytes 7.3 % (1.7-9.3); Absolute Eosinophils 0.1 10^3/uL (0-0.7); Absolute Immature Granulocytes 0.1 10^3/uL (0-0.05); Absolute Lymphocytes 1.5 10^3/uL (1.2-3.4); Absolute Monocytes 0.6 10^3/uL (0.1-0.6); Absolute Neutrophils 5.4 10^3/uL (1.4-6.5); Hematocrit 24.9 % (39.0-52.0); Mean Corp Hgb Conc. 32.1 g/dL (33.0-37.0); Mean Corpuscular Hgb 32.1 pg (27.0-31.0); Nucleated Red Blood Cells % 0 % (-); Platelet Count 146 10^3/uL (130-400); Red Blood Cell Count 2.49 10^6/uL (4.70-6.10); White Blood Cell Count 7.7 10^3/uL (4.8-10.8)
[2024-12-27 10:39] LABS: ALT (SGPT) < 10 U/L (0-50); AST (SGOT) 47 U/L (17-59); Albumin 2.8 g/dl (3.5-5.0); Alkaline Phosphatase 53 U/L (38-126); Blood Urea Nitrogen 44 mg/dl (9-20); Calcium 10.8 mg/dl (8.4-10.2); Carbon Dioxide 23 mmol/L (22-30); Chloride 111 mmol/L (98-107); Estimated Creatinine Clearance 14 ml/min; Glucose 85 mg/dl (70-99); Sodium 140 mmol/L (135-145); Total Bilirubin 0.8 mg/dl (0.2-1.3); Total Protein 5.1 g/dl (6.3-8.2); eGFR 15.54
[2024-12-27] MEDS: FLOMAX 0.8 MG PO (11:53)
--- NOTE | 2024-12-27 11:54 | W.PN.NEPH.PH ---
Today's Communication / Plan
-
Follow BMP and calcium
Awaiting hypercalcemia workup
Assessment/Plan
-
Assessment:
MONA with CKD5-Dr Iverson
Acute metabolic encephalopathy
Community-acquired pneumonia
Chronic Coburn catheter
BPH with chronic bladder outlet obstruction
Gross hematuria with blood clots-Occurred in the ED after Coburn exchange
S/p left nephrectomy 1984
AoCKD
Hypercalcemia
H/O parathyroidectomy
Chronic dysphagia
H/O GE junction stenosis s/p esophageal dilation
H/O achalasia-Had esophageal dilation in August 2024 with GI
Orthostatic hypotension
Primary hypertension
Metastatic renal cell carcinoma
Liver and bone metastases
Immunosuppressed from chemotherapy-Home regimen includes chemotherapy with Cabometyx 20 mg daily, immunotherapy every 2 weeks
-Follows with Dr. Platt from oncology
Hypothyroidism
GERD
Dyslipidemia
Hypocalcemia
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
Plan
Creatinine stable at 3.7
Serum calcium down to 10.8 following pamidronate and calcitonin administration
We can discontinue further IV fluid
BP stable without midodrine
Hypercalcemia is new this admission
Workup for hypercalcemia pending
pamidronate 12/25/2024
No emergent HD needs today
-
-
Date of Service: December 27, 2024
CC / HPI / ROS
-
Chief Complaint:
MONA with CKD5
History of Present Illness:
cr slightly better near baseline 4.0
BP stable off meds
k normal
acidosis controlled with bicarbonate
Calcium down to 10.8 following pamidronate and calcitonin and IV fluid administration
Review of Systems:
no cp or sob
no cough
no N/V
appetite is poor chronically
thought date was 11/22/24
Labs
-
Labs:
WBC 7.7 10^3/uL (4.8-10.8) 12/27/24 09:22
RBC 2.49 10^6/uL (4.70-6.10) L 12/27/24 09:22
Hgb 8.0 g/dL (13.0-18.0) L 12/27/24 09:22
Hct 24.9 % (39.0-52.0) L 12/27/24 09:22
Plt Count 146 10^3/uL (130-400) 12/27/24 09:22
Sodium 140 mmol/L (135-145) 12/27/24 09:22
Potassium 5.0 mmol/L (3.5-5.1) 12/27/24 09:22
Chloride 111 mmol/L (98-107) H 12/27/24 09:22
Carbon Dioxide 23 mmol/L (22-30) 12/27/24 09:22
BUN 44 mg/dl (9-20) H 12/27/24 09:22
Creatinine 3.7 mg/dL (0.7-1.3) H 12/27/24 09:22
eGFR 15.54 12/27/24 09:22
Glucose 85 mg/dl (70-99) 12/27/24 09:22
Calcium 10.8 mg/dl (8.4-10.2) H 12/27/24 09:22
Phosphorus Cancelled 12/25/24 11:14
Albumin 2.8 g/dl (3.5-5.0) L 12/27/24 09:22
Physical Exam
-
Vital Signs:
Vital Signs
Temp Pulse Resp BP Pulse Ox
97.7 F 80 17 118/59 97
12/27/24 07:24 12/27/24 07:24 12/27/24 07:24 12/27/24 07:24 12/27/24 07:24
Cardiovascular:: Regular rate and rhythm
Respiratory:: Bilateral: Coarse
Lung Excursion:: Normal
Abdomen:: Nontender and Soft
Bowel Sounds:: Normal
Extremity Edema:: None: Bilateral:
[2024-12-27 12:34] LABS: Intact PTH 3.8 pg/ml (13.6-85.8)
[2024-12-27 15:04] VITALS: BP 113/72
[2024-12-27 15:12] VITALS: BP 128/68; PULSE 86
[2024-12-27 15:33] LABS: Vitamin D 1,25 Dihydroxy 24.1 pg/mL (19.9-79.3)
[2024-12-27 15:37] VITALS: BP 128/68; PULSE 86
[2024-12-27] MEDS: MELATONIN 5 MG PO (20:32)
[2024-12-27] MEDS: LIPITOR 20 MG PO (20:33)
[2024-12-27 23:00] VITALS: BP 84/53
[2024-12-28 00:43] VITALS: BP 129/66
[2024-12-28 06:00] VITALS: BMI 21.2
[2024-12-28] MEDS: SYNTHROID 75 MCG PO (06:03)
[2024-12-28 06:45] LABS: % Basophils 0.1 % (0-2); % Eosinophils 1.5 % (0-6); % Immature Granulocytes 0.7 % (0-0.5); % Lymphocytes 13.7 % (20.5-51.1); % Monocytes 7.9 % (1.7-9.3); % Neutrophils 76.1 % (42.2-75.2); Absolute Eosinophils 0.1 10^3/uL (0-0.7); Absolute Immature Granulocytes 0.1 10^3/uL (0-0.05); Absolute Lymphocytes 1.2 10^3/uL (1.2-3.4); Absolute Monocytes 0.7 10^3/uL (0.1-0.6); Absolute Neutrophils 6.7 10^3/uL (1.4-6.5); Hematocrit 25.3 % (39.0-52.0); Mean Corp Hgb Conc. 31.6 g/dL (33.0-37.0); Mean Corpuscular Hgb 31.7 pg (27.0-31.0); Mean Corpuscular Volume 100.4 fL (80.0-94.0); Mean Platelet Volume 9.7 fL (7.4-10.4); Nucleated Red Blood Cells % 0 % (-); Platelet Count 122 10^3/uL (130-400); Red Blood Cell Count 2.52 10^6/uL (4.70-6.10); Red Cell Dist. Width 16.2 % (11.5-14.5); White Blood Cell Count 8.8 10^3/uL (4.8-10.8)
[2024-12-28 07:18] VITALS: BP 115/56
[2024-12-28 07:24] LABS: Blood Urea Nitrogen 43 mg/dl (9-20); Calcium 10.6 mg/dl (8.4-10.2); Carbon Dioxide 22 mmol/L (22-30); Chloride 112 mmol/L (98-107); Estimated Creatinine Clearance 13 ml/min; Glucose 72 mg/dl (70-99); Potassium 5.2 mmol/L (3.5-5.1); Sodium 142 mmol/L (135-145); eGFR 14.59
--- NOTE | 2024-12-28 08:25 | W.PN.HOSP.TC ---
Addendum entered and electronically signed by Rikki Fierro MD 12/28/24 14:14:
Seen and examined by me independently in collaboration with the pesticide use medical coordinator.
Lab data and imaging data reviewed.
Addendum as below :
Patient feels improved in general. Voicing no specific complaints.
Denies any nausea or vomiting. No abdominal pain. Denies shortness of breath or chest pain.
He has agreed yesterday for establishing with a oncology care locally. Was seen by oncologist today. They came to make arrangements for outpatient follow-up and treatments for his renal cancer.
Improved calcium close to normal-10.6 today. Vitamin D levels are okay. PTH low and going with hypercalcemia plus he had a parathyroidectomy. PTH RP pending. Suspect this may be malignant hypercalcemia. Follow calcium on regular basis.
AV fistula site without further hematoma.
Chronic Driscoll catheter which is draining well without hematuria.
Medically stable for discharge home today. Follow-up with oncology for treatments. Follow-up with nephrology for chronic kidney disease. Currently no indication for dialysis.
PT report noted. Case management to arrange home care.
Total time of discharge 35 minutes
Original Note:
Today's Communication/Plan
-
Hypercalcemia improved
Oncology consult
Dispo planning for hopeful return to [facility]
Assessment / Plan
Assessment / Plan
84-year-old male with history of CKD stage V (pending HD), metastatic RCC s/p left nephrectomy, bone and liver metastases, chronic Driscoll catheter, chronic dysphagia 2/2 GE junction stenosis s/p esophageal dilation (09/27/24), hypothyroidism,
orthostasis, BPH, hypertension, H/O achalasia, who presents with acute metabolic encephalopathy, community-acquired pneumonia, asymptomatic bacteriuria, nonanion gap metabolic acidosis
Spoke with Dr. Hoover, patient's Oncologist -- pt presented to her with bone mets and hypercalcemia which improved and stabilized with chemo Xgeva. However patient has not gotten repeat PET imaging from July 2024 and has not had treatment in 3
months due to repeated hospital visits. Spoke to family who is agreeable to switch oncology to [place] [facility] for continuing care and follow up. -- Oncology Consult for coordination of care/prognosis
#Hypercalcemia
#h/o bone mets
#H/o parathyroidectomy (usually hypocalcemic on labs)
- Upon arrival serum calcium 11.0 with albumin 3.9
- Initially resolved with IVF, likely from dehydration -- increased again to 11.8 -- PTHrp pending, Vit D1, 25 wnl
- given pamidronate, given calcitonin-- calcium to 10.6 today/baseline this admission (probable contribution of worsening metastatic disease)
- observe bmp, no signs or sx of hypercalcemia at that time
#AV Fistula Creation
#Post-op hematoma
- s/p AVF creation, had hematoma -- obs over weekend, stable -- cleared for d/c from vascular
#Ambulatory dysfunction
- PT/OT consulted. Going back to Assisted living with more VN care pending medical stabilization
#Acute metabolic encephalopathy, likely secondary to pneumonia (resolved)
Question of polypharmacy/improper medication use
- UA with pyuria, leuks, RBCs. Urine culture negative.
- CT head without acute abnormalities
- Continue to hold trazodone, tramadol, other sedating agents.
- Mental status at baseline. C/t monitor mental status clinically
#Community-acquired pneumonia (resolved)
- Chest x-ray with mild left lower lobe PNA. possible trace parapneumonic effusion.
- Cipro started in ED. switched to ceftriaxone/azithromycin. Completed 5d course of Ceftriaxone/Azithromycin
- L Chest US showing minimal L pleural effusion. No need for intervention or tap at this time
- Remains without respiratory symptoms
#Asymptomatic bacteriuria, chronic Driscoll catheter (last changed on admission 12/16)
- h/o BPH with chronic bladder outlet obstruction
- Noted to have positive UA, apparent urine sediment noted in Driscoll bag; no fever or leukocytosis. Urine cx negative
- C/w driscoll, home tamsulosin and dutasteride
#Gross hematuria, likely traumatic secondary to Driscoll exchange (resolved)
- Renal US shows no obstruction, some nonobstructing renal stones
- Outpt follow up with Dr. Angela for management/surveillance of nonobstructing kidney stones in solitary kidney and chronic urinary retention
#Anemia, multifactorial
- Likely secondary to chronic disease, secondary to CKD V/ESRD and Iron deficiency
- Ferritin high, TIBC low, total iron/%sat low.
- Follow CBC
- transfuse if hgb <7
#MONA on CKD stage V, likely pre-renal (secondary to dehydration)
- Baseline creatinine 4, 5.6 on arrival.
- Cr improved with IVF -- d/c IVF
- c/t avoid nephrotoxic agents, renally dose meds
- Appreciate nephro input
- c/t monitor bmp
#Non-Anion gap metabolic acidosis
- Secondary to MONA on CKD V/ESRD
- Follow BMP
#Anxiety/depression
- Patient shares that he has been depressed since his passed 3 years ago. Describes racing thoughts.
- Can consider Remeron upon discharge
- Recommend outpatient PCP follow-up
#Chronic dysphagia
#h/o GE junction stenosis s/p esophageal dilation
#h/o achalasia
- Had esophageal dilation in August 2024 with GI
- Speech therapy evaluation with recommendations for regular solids and thin liquids, meds in applesauce, aspiration precautions.
#Orthostatic hypotension
#Primary hypertension
- Home medications also included midodrine 5 mg as needed for SBP <100 or symptomatic dizziness
- Blood pressure stable as of now - holding amlodipine for orthostatic hypotension
#Metastatic renal cell carcinoma
#Liver and bone metastases
#Immunosuppressed from chemotherapy
- Follows with Dr. Lc Ortiz (see above)
- Oncology consult for worsening hypercalcemia requiring calcitonin in the setting of bone mets w/o palliative chemo x3 months
#Hypothyroidism
- Unclear etiology, home regimen includes levothyroxine 75 mcg daily - TSH normal
#GERD
- C/w pantoprazole 40 mg twice daily
#Dyslipidemia - No known ASCVD history, home medications include moderate intensity statin, aspirin
#Moderate Protein Calorie Malnutrition - Pts weight previous admission listed as 158 lbs (10/17) reflective of a 17 lb (11%) weight loss in two months, significant. Encouraged small frequent meals and snacks.
#Stage II pressure injury (Coccyx), POA - dry and intact, adhesive foam placed.
DVT prophylaxis: SQ heparin
Diet: regular/thin, renal (low K, low Na)
CODE STATUS: Full code
Anticipated Discharge: 24 - 48 hours
Subjective/Interval History
-
Date of Service: December 28, 2024
Feeling the same, low appetite.
Objective Data
-
Labs:
Laboratory Results
12/28/24
06:14
WBC 8.8
Hgb 8.0 L
Hct 25.3 L
Plt Count 122 L
Sodium 142
Potassium 5.2 H
Chloride 112 H
Carbon Dioxide 22
BUN 43 H
Creatinine 3.9 H
Glucose 72
Calcium 10.6 H
Vital Signs:
Vital Signs
Temp Pulse Resp BP Pulse Ox
97.6 F 83 18 115/56 99
12/28/24 07:18 12/28/24 07:18 12/28/24 07:18 12/28/24 07:18 12/28/24 07:18
I&O
12/27/24 12/28/24 12/29/24
06:59 06:59 06:59
Intake Total 1800 / 1800 210 / 210
Output Total 1250 / 1250 975 / 975
Balance 550 / 550 -765 / -765
Review of Systems
-
History Source: Patient
Constitutional: Reports No Symptoms
EENT: Reports No Symptoms Reported
Respiratory: Reports No Symptoms
Cardiac: Reports No Symptoms
Abdomen/GI: Reports Anorexia; Denies Abdominal Pain, Nausea, Vomiting, Diarrhea or Constipated
Genitourinary: Reports No Symptoms
Musculoskeletal: Reports No Symptoms
Neuro: Reports No Symptoms
Physical Exam
-
General: Comfortable and Appears Chronically Ill
HEENT: Normocephalic, Atraumatic, Moist Mucous Membranes, Anicteric and [place] Conjunctivae
Respiratory: Clear to Auscultation; Negative Wheezes, Rales or Rhonchi
Cardiac: Regular Rhythm and S1/S2; Negative Murmur or Rub
GI: Soft, Nontender and Nondistended; Negative Normal Bowel Sounds (hyperactive bowel sounds)
Musculoskeletal: No Clubbing, No Cyanosis and No Edema
Skin: Warm and Dry
Neuro: AO x 3
Psych: Depressed
[2024-12-28] MEDS: CALCIMAR/CALCITONIN 400 UNITS/ 2 ML 250 UNITS SC (08:43)
[2024-12-28] MEDS: TRICOR 145 MG PO (08:43)
[2024-12-28] MEDS: PROTONIX 40 MG PO (08:44)
[2024-12-28] MEDS: MIRALAX 17 GRAMS PO (08:44)
[2024-12-28] MEDS: COLACE 100 MG PO (08:44)
[2024-12-28] MEDS: VITAMIN D3 (cholecalciferol) 50 MCG PO (08:44)
[2024-12-28] MEDS: SODIUM BICARBONATE 650 MG PO (08:44)
[2024-12-28] MEDS: HEPARIN 5000 UNITS SC (08:44)
[2024-12-28] MEDS: ASPIR LOW (ENTERIC COATED) 81 MG PO (08:44)
[2024-12-28] MEDS: DESENEX/MITRAZOL/ZEASORB 1 APPLIC TOPICAL (09:00)
--- NOTE | 2024-12-28 11:07 | CON.ONC ---
Consultation
-
Date Consultation Requested: 12/28/24
Date Consultation Performed: 12/28/24
Requesting Provider: Dr. Rick
Performing Provider: Dr. Dawson/Dr. Gomez
Impression
Impression
metastatic renal cell carcinoma s/p L nephrectomy 1985
mets bone, liver, lungs; pathologic R hilar lymphadenopathy; LUQ mass
h/o pathologic fracture of L1
h/o hypercalcemia from metastatic bone disease
s/p palliative radiation to L1
outpatient regimen: nivolumab q4w, cabozantinib 40mg PO daily, xgeva q4w
follows with Dr. Hunter (pt reports last visit 2 mo ago)
moderate hypercalcemia (recent peak of 13 corrected for hypoalbuminemia)-- improving
s/p parathyroidecomy (unknown reason)
BPH, urinary retention, chronic driscoll catheter
ESRD pending HD, s/p AV fistula creation
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
possible nephrotoxicity from nivolumab
orthostatic hypotension; h/o HTN
depression-- mood stable, no SH/SI
Plan
Plan
Metastatic renal cell carcinoma: Unclear when last treatment dose or onco imaging was-- outpatient care interrupted by multiple hospitalizations and difficulty/cost of transportation. Request sent for updated outpatient oncology records-- pending.
Continue supportive care while inpatient. Patient desires full treatment at this time and continuing cancer treatments with goal of delaying disease progression; understands that treatment is not curative. He would like to establish care with
[place] [facility] given proximity to his current assisted living facility (though unclear if this will solve transportation issues). Will need updated PET scans and reassess treatment options outpatient after resolution of acute illness.
Hypercalcemia most likely secondary to bone metastasis: Improving s/p aredia 30mg x1 (12/25) and calcitonin x2 days (scheduled to stop after 3 days) per nephrology. Unclear when last dose of xgeva was-- records requested. Outpatient reassess for
standing xgeva. Consider holding vitamin d supplementation though unlikely to have significant contribution to current hypercalcemia.
ESRD pending HD and Interstitial nephritis per 09/2024 R renal biopsy: During hospitalization in Sep, concern for nivolumab nephrotoxicity; at discharge, was prescribed 40mg prednisone daily with plan for slow taper outpatient per oncologist--
unknown follow through, records requested. Management per nephrology-- planning for eventual HD.
Orthostatic hypotension, likely multifactorial: Possible adrenal insufficiency (side effect of nivolumab/cabozantinib combination) contributing? Will add on AM cortisol, can consider steroids with slow taper.
Goals of care: Desires continuing full treatment at this time, has capacity. Understands cancer treatment is palliative not curative. Reviewed code status 12/28-- regarding CPR he says he'd want 'one round.' Remains full code at this time.
Memory impairment/possible unintentional overdose prior to admission (denies SA): Concern for patient managing own med administration, may benefit from increased level of assistance in facility-- defer to primary team/outpatient providers.
Patient History
History of Present Illness
84yo M with [facility] metastatic renal cell carcinoma s/p L nephrectomy, melanoma in situ s/p excision 07/2022, BPH with chronic driscoll catheter, CKD5 pending HD, depression, dysphagia, orthostatic hypotension who presented to ED from assisted
living/personal care on 12/16/24 for altered mental status, initially thought to be due to polypharmacy/unintentional overdose vs infection-related. This admission, he was also treated for community-acquired pneumonia, bacteruria, gross hematuria,
MONA on CKD; underwent AV fistula creation in anticipation of eventual HD. Heme/onc now consulted for hypercalcemia and known metastatic history.
Patient is poor historian; history primarily obtained from review of records and limited outpatient onco records. In term of his cancer history, he was diagnosed with renal cell carcinoma in 1979's after presenting with flank pain which he
thought was kidney stone. He underwent L nephrectomy in 1985 with unclear follow up until recently. He follows with Dr. Hunter for oncology after presenting with back pain in 02/2024 with initial imaging revealing L1 lytic lesion with pathologic
fracture and widespread metastatic disease (>50% liver involvement; iliac bone lytic lesion; multiple bone lesions throughout ribs, spine, pelvis; LUQ mass near pancreas; small lung nodules). At that time, he also had hypercalcemia (Ca 14.5) s/p
zolendroic acid. Liver biopsy confirmed clear cell renal cell carcinoma. He began palliative radiation to L1 03/29, nivolumab q4w 04/04, cabozantinib 20 mg qD 04/14 (dose increased to 40mg qD 05/2024), xgeva 120mg subcut q4w. Plan at that time was to
continue this treatment and repeat imaging in June. However his treatment/follow up has been interrupted due to multiple [facility] hospitalizations and transportation issues.
On exam today, he says he feels 'pretty good' and only complaint is the food-- has had very poor appetite for a while. Currently denies pain/difficulty/coughing with swallowing. Denies sensation of food getting stuck, though has had issues with this
in past. His pain is generally well controlled without opioids-- reports occasional pain in L shoulder, mid spine, and bottom (?bedsore). Reports his mood is 'not bad' and denies feeling down/depressed; reports some passive thoughts about dying but
denies active suicidal ideation/intent. Says 'I don't want to , but if it comes along okay.'
Past-Medical/Surgical History
metastatic renal cell carcinoma s/p L nephrectomy 1985
mets bone, liver, lungs; pathologic R hilar lymphadenopathy; LUQ mass
h/o pathologic fracture of L1
h/o hypercalcemia from metastatic bone disease
s/p palliative radiation to L1
outpatient regimen: nivolumab q4w, cabozantinib 40mg PO daily, xgeva q4w
follows with Dr. Hunter
h/o melanoma in situ s/p excision 07/2022
BPH, urinary retention, chronic driscoll catheter
ESRD pending HD; interstitial nephritis s/p R renal biopsy 09/2024
depression
orthostatic hypotension; h/o HTN
HLD
KATLYN
hypothyroidism
GERD
chronic dysphagia 2/2 esophageal stricture s/p EGD balloon dilation/botox
chronic anemia
h/o smoking-- quit 50 y ago
L nephrectomy 1985
parathyroidectomy
bilateral inguinal hernia repair
septoplasty
AV fistula creation
EGD balloon dilation/botox
Patient Medication
�Medication �Instructions �Recorded �Confirmed �Last Taken �Type
acetaminophen 325 mg tablet 650 mg PO Q6HPRN PRN mild pain 05/12/24 12/16/24 Unknown History
aspirin 81 mg tablet,delayed 81 mg PO DAILY Blood Clot 05/12/24 12/16/24 10/17/24 History
release Prevention/Tx
atorvastatin 20 mg tablet 20 mg PO HS High Cholesterol 05/12/24 12/16/24 10/16/24 History
cholecalciferol (vitamin D3) 50 50 mcg PO DAILY Supplement 05/12/24 12/16/24 10/17/24 History
mcg (2,000 unit) tablet (Vitamin
D3)
levothyroxine 75 mcg tablet 75 mcg PO DAILY Thyroid 05/12/24 12/16/24 10/17/24 History
tamsulosin 0.4 mg capsule 0.8 mg PO NOON Urinary Issue 05/12/24 12/16/24 10/16/24 History
trazodone 100 mg tablet 100 mg PO HS Sleep 05/12/24 12/16/24 10/16/24 History
dutasteride 0.5 mg capsule 0.5 mg PO Q48H Urinary Issue 08/27/24 12/16/24 10/17/24 History
(Avodart)
pantoprazole 40 mg tablet,delayed 40 mg PO BID GERD 09/23/24 12/16/24 10/17/24 History
release (Protonix)
midodrine 5 mg tablet 5 mg PO TIDPRN PRN dizziness or 10/17/24 12/16/24 Unknown History
sbp<100
polyethylene glycol 3350 17 gram 17 g PO DAILYPRN PRN constipation 10/26/24 12/16/24 Unknown Rx
oral powder packet #30 ea
amlodipine 5 mg tablet 5 mg PO DAILY Blood Pressure 12/16/24 12/16/24 Unknown History
fenofibrate nanocrystallized 145 145 mg PO DAILY High Cholesterol 12/16/24 12/16/24 Unknown History
mg tablet
miconazole nitrate 2 % topical 1 applic topical BID Skin Issues 12/16/24 12/16/24 Unknown History
powder (Zeasorb AF)
tramadol 50 mg tablet 50 mg PO Q12H Pain 12/16/24 12/16/24 Unknown History
Active Medications
Generic Name Dose Route Start Last Admin
Trade Name Freq PRN Reason Stop Dose Admin
Acetaminophen 650 mg 12/16/24 19:53 12/21/24 10:10
Acetaminophen 325 Mg Tablet PO 01/13/25 19:52 650 mg
Q4HPRN PRN Administration
mild pain/LEGGETT/temp> 100.4F
Amlodipine Besylate 5 mg 12/17/24 08:00 12/17/24 09:44
Amlodipine 5 Mg Tablet PO 01/14/25 07:59 5 mg
DAILY HARLEEN Administration
Aspirin 81 mg 12/17/24 08:00 12/28/24 08:44
Aspirin 81 Mg (Enteric Coated) Tablet PO 01/14/25 07:59 81 mg
DAILY HARLEEN Administration
Atorvastatin Calcium 20 mg 12/16/24 22:00 12/27/24 20:33
Atorvastatin (Lipitor) 20 Mg Tablet PO 01/13/25 21:59 20 mg
HS HARLEEN Administration
Bisacodyl 10 mg 12/16/24 19:53
Bisacodyl 10 Mg Rectal Suppository RECTAL 01/13/25 19:52
[id number] PRN
constipation
Calcitonin 250 units 12/26/24 09:00 12/28/24 08:43
Calcitonin (Silex) Synthetic 400 Units/2 Ml Vial SC 12/28/24 20:01 250 units
BID HARLEEN Administration
Cholecalciferol 50 mcg 12/17/24 08:00 12/28/24 08:44
Cholecalciferol (Vitamin D3) 50 Mcg Tablet (2,000 Units) PO 01/14/25 07:59 50 mcg
DAILY HARLEEN Administration
Docusate Sodium 100 mg 12/26/24 12:00 12/28/24 08:44
Docusate Sodium 100 Mg Capsule PO 01/23/25 11:59 100 mg
BID HARLEEN Administration
Fenofibrate 145 mg 12/17/24 08:00 12/28/24 08:43
Fenofibrate 145 Mg Tablet PO 01/14/25 07:59 145 mg
DAILY HARLEEN Administration
Finasteride 5 mg 12/17/24 08:00 12/27/24 08:57
Finasteride 5 Mg Tablet PO 01/14/25 07:59 5 mg
Q48H HARLEEN Administration
Heparin Sodium 5,000 units 12/16/24 20:00 12/28/24 08:44
Heparin 5,000 Units/Ml 1 Ml Vial SC 01/13/25 19:59 5,000 units
Q12 HARLEEN Administration
Levothyroxine Sodium 75 mcg 12/17/24 06:00 12/28/24 06:03
Levothyroxine 75 Mcg Tablet PO 01/14/25 05:59 75 mcg
DAILY@0600 HARLEEN Administration
Melatonin 5 mg 12/19/24 22:00 12/27/24 20:32
Melatonin 5 Mg Tablet PO 01/16/25 21:59 5 mg
HS HARLEEN Administration
Miconazole Nitrate 1 applic 12/16/24 20:00 12/28/24 09:00
Miconazole Powder Bottle TOPICAL 01/13/25 19:59 1 applic
BID HARLEEN Administration
Midodrine 5 mg 12/16/24 19:53 12/20/24 05:02
Midodrine 5 Mg Tablet PO 01/13/25 19:52 5 mg
TIDPRN PRN Administration
SBP<100
Ondansetron HCl 4 mg 12/16/24 19:53 12/27/24 09:04
Ondansetron 4 Mg/2 Ml Vial IV 01/13/25 19:52 4 mg
Q6HPRN PRN Administration
nausea and vomiting
Oxycodone HCl 5 mg 12/22/24 14:34
Oxycodone 5 Mg Regular Release Tablet PO 01/05/25 14:33
Q4HPRN PRN
moderate pain
Pantoprazole Sodium 40 mg 12/16/24 20:00 12/28/24 08:44
Pantoprazole 40 Mg Delayed Release Tablet PO 01/13/25 19:59 40 mg
BID HARLEEN Administration
Polyethylene Glycol 17 grams 12/26/24 12:00 12/28/24 08:44
Polyethylene Glycol Powder 17 Grams Packet PO 01/23/25 11:59 17 grams
DAILY HARLEEN Administration
Sodium Bicarbonate 650 mg 12/18/24 09:00 12/28/24 08:44
Sodium Bicarbonate 650 Mg Tablet PO 01/15/25 08:59 650 mg
BID HARLEEN Administration
Sodium Chloride 0 flush 12/16/24 21:00
Sodium Chloride 0.9% (Flush) Syringe IV 01/13/25 20:59
PER PROTOCOL HARLEEN
Tamsulosin HCl 0.8 mg 12/17/24 12:00 12/27/24 11:53
Tamsulosin 0.4 Mg Capsule PO 01/14/25 11:59 0.8 mg
NOON HARLEEN Administration
Review of Systems
-
History Source: Patient
Constitutional: Reports Weight Loss, No Appetite, Fatigue and Weakness; Denies Fever, Night Sweats or Chills
EENT: Reports No Symptoms
Respiratory: Reports Cough; Denies Hemoptysis, Trouble Breathing or Wheezing
Cardiac: Denies Chest Pain, Diaphoresis, Palpitations or Syncope
GI: Reports Abdominal Pain (mild occasional), Nausea (mild occasional), Constipated (pt attributes to poor PO intake) and Anorexia; Denies Vomiting, Diarrhea, Bloody Stools, Black Stools, Hemetemesis or Bloated
: Reports Difficulty Voiding (chronic driscoll catheter); Denies Dysuria, Flank Pain or Discharge
Musculoskeletal: Reports Other (L shoulder pain, mild mid back pain)
Skin: Reports Sores (coccyx pressure injury)
Neuro: Denies Dizzy, Headache or Lightheadedness
Hematologic/Lymphatic: Reports No Symptoms
Allergy / Immunology: Reports No Symptoms
Psych: Reports No Symptoms
Physical Exam
-
General: No Apparent Distress, Comfortable, Appears Chronically Ill and Cachetic; Negative Pain, Fever, Chills or Sweats
HEENT: Negative Jaundice
Pulmonary: Other (nonlabored breathing, room air)
Genito-Urinary: Clear Urine and Driscoll
Neurology: Non Focal, No Lateralizing Symptoms and Other (some memory deficits apparent)
Psych: Other (flat affect, cooperative)
Labs
Lab Results
WBC 8.8 10^3/uL (4.8-10.8) 12/28/24 06:14
RBC 2.52 10^6/uL (4.70-6.10) L 12/28/24 06:14
Hgb 8.0 g/dL (13.0-18.0) L 12/28/24 06:14
Hct 25.3 % (39.0-52.0) L 12/28/24 06:14
MCV 100.4 fL (80.0-94.0) H 12/28/24 06:14
MCH 31.7 pg (27.0-31.0) H 12/28/24 06:14
MCHC 31.6 g/dL (33.0-37.0) L 12/28/24 06:14
RDW 16.2 % (11.5-14.5) H 12/28/24 06:14
Plt Count 122 10^3/uL (130-400) L 12/28/24 06:14
MPV 9.7 fL (7.4-10.4) 12/28/24 06:14
Abs Immat Gran (auto) 0.1 10^3/uL (0-0.05) H 12/28/24 06:14
Absolute Neuts (auto) 6.7 10^3/uL (1.4-6.5) H 12/28/24 06:14
Absolute Lymphs (auto) 1.2 10^3/uL (1.2-3.4) 12/28/24 06:14
Absolute Monos (auto) 0.7 10^3/uL (0.1-0.6) H 12/28/24 06:14
Absolute Eos (auto) 0.1 10^3/uL (0-0.7) 12/28/24 06:14
Absolute Basos (auto) 0.0 10^3/uL (0-0.2) 12/28/24 06:14
Immature Gran % 0.7 % (0-0.5) H 12/28/24 06:14
Neutrophils % 76.1 % (42.2-75.2) H 12/28/24 06:14
Lymphocytes % 13.7 % (20.5-51.1) L 12/28/24 06:14
Monocytes % 7.9 % (1.7-9.3) 12/28/24 06:14
Eosinophils % 1.5 % (0-6) 12/28/24 06:14
Basophils % 0.1 % (0-2) 12/28/24 06:14
Creatinine 3.9 mg/dL (0.7-1.3) H 12/28/24 06:14
Vital Signs
Vital Signs
Temp Pulse Resp BP Pulse Ox
97.6 F 83 18 115/56 99
12/28/24 07:18 12/28/24 07:18 12/28/24 07:18 12/28/24 07:18 12/28/24 07:18
--- NOTE | 2024-12-28 11:15 | CM ---
Addendum entered by Funmilayo Stallworth 12/28/24 13:28:
Spoke with Daughter in law Meaghan, IMM reviwed and copy emailed to [email or web address]
Grandson will transport.
Original Note:
[facility] [phone] updated re d/c today.
Plan: d/c to [facility] today.
[facility]
Report # [phone]
[2024-12-28 12:27] LABS: Cortisol, Random 32.3 ug/dl
[2024-12-28] MEDS: FLOMAX 0.8 MG PO (13:12)
[2024-12-28 15:26] VITALS: BP 106/48
--- NOTE | 2024-12-28 16:06 | W.PN.NEPH.PH ---
Today's Communication / Plan
-
stable for discharge
bmp to Dr Iverson next week
Assessment/Plan
-
Assessment:
MONA with CKD5-Dr Iverson
Acute metabolic encephalopathy
Community-acquired pneumonia
Chronic Driscoll catheter
BPH with chronic bladder outlet obstruction
Gross hematuria with blood clots-Occurred in the ED after Driscoll exchange
S/p left nephrectomy 1984
AoCKD
Hypercalcemia
H/O parathyroidectomy
Chronic dysphagia
H/O GE junction stenosis s/p esophageal dilation
H/O achalasia-Had esophageal dilation in August 2024 with GI
Orthostatic hypotension
Primary hypertension
Metastatic renal cell carcinoma
Liver and bone metastases
Immunosuppressed from chemotherapy-Home regimen includes chemotherapy with Cabometyx 20 mg daily, immunotherapy every 2 weeks
-Follows with Dr. Platt from oncology
Hypothyroidism
GERD
Dyslipidemia
Hypocalcemia
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
Plan
Creatinine stable at 3.9
Serum calcium down to 10.6 following pamidronate and calcitonin administration
BP stable without midodrine
Hypercalcemia is new this admission: Likely related to underlying urological malignancy
Workup for hypercalcemia pending, PTH appropriately low at 3.8, PTH RP pending
pamidronate 12/25/2024
No emergent HD needs today
Patient stable for discharge from nephrology standpoint
Needs follow-up BMP next week sent to Dr. Iverson and his oncologist
-
-
Date of Service: December 28, 2024
CC / HPI / ROS
-
Chief Complaint:
MONA with CKD5
History of Present Illness:
cr slightly better near baseline 3.9
BP stable off meds
k normal
acidosis controlled with bicarbonate
Calcium down to 10.6 following pamidronate and calcitonin and IV fluid administration
Review of Systems:
no cp or sob
no cough
no N/V
appetite is poor chronically
driscoll
Labs
-
Labs:
WBC 8.8 10^3/uL (4.8-10.8) 12/28/24 06:14
RBC 2.52 10^6/uL (4.70-6.10) L 12/28/24 06:14
Hgb 8.0 g/dL (13.0-18.0) L 12/28/24 06:14
Hct 25.3 % (39.0-52.0) L 12/28/24 06:14
Plt Count 122 10^3/uL (130-400) L 12/28/24 06:14
Sodium 142 mmol/L (135-145) 12/28/24 06:14
Potassium 5.2 mmol/L (3.5-5.1) H 12/28/24 06:14
Chloride 112 mmol/L (98-107) H 12/28/24 06:14
Carbon Dioxide 22 mmol/L (22-30) 12/28/24 06:14
BUN 43 mg/dl (9-20) H 12/28/24 06:14
Creatinine 3.9 mg/dL (0.7-1.3) H 12/28/24 06:14
eGFR 14.59 12/28/24 06:14
Glucose 72 mg/dl (70-99) 12/28/24 06:14
Calcium 10.6 mg/dl (8.4-10.2) H 12/28/24 06:14
Phosphorus Cancelled 12/25/24 11:14
Albumin 2.8 g/dl (3.5-5.0) L 12/27/24 09:22
Physical Exam
-
Vital Signs:
Vital Signs
Temp Pulse Resp BP Pulse Ox
97.8 F 77 17 106/48 95
12/28/24 15:26 12/28/24 15:26 12/28/24 15:26 12/28/24 15:26 12/28/24 15:26
Cardiovascular:: Regular rate and rhythm
Respiratory:: Bilateral: Coarse
Lung Excursion:: Normal
Abdomen:: Nontender and Soft
Bowel Sounds:: Normal
Extremity Edema:: None: Bilateral:
--- NOTE | 2024-12-28 20:09 | W.DCSUMMARY ---
Discharge Summary
Discharge Data
Date of Admission: 12/16/24
Date of Discharge: 12/28/24
Total time spent discharging patient (in min): >30m
-
Pending Results: Yes
Additional Pending Results:
PTHrP
Hospital Course
Discharging Physician : Dr. Omar Rick, Dr. Rikki Fierro
Disposition : Assisted Living
Primary care physician : Dr. Kristine Bernal
Principal Discharge diagnosis : Hypercalcemia, AV Fistula Creation, Post-op hematoma, Acute metabolic encephalopathy, Community-acquired pneumonia, Asymptomatic bacteriuria, Gross hematuria, MONA on CKD stage V, Non-Anion gap metabolic acidosis,
Moderate Protein Calorie Malnutrition
Chronic Discharge diagnosis : Ambulatory dysfunction, Anemia, Anxiety/depression, Chronic dysphagia, Orthostatic hypotension, Primary hypertension, Metastatic renal cell carcinoma, Hypothyroidism, GERD, Dyslipidemia, Stage II pressure injury
(Coccyx), POA
Hospital Course :
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
orthostasis, BPH, hypertension, H/O achalasia, who presents with acute metabolic encephalopathy, community-acquired pneumonia, asymptomatic bacteriuria, and nonanion gap metabolic acidosis. What follows is a summary of the problems managed
throughout the hospital.
#Hypercalcemia
#h/o bone mets
#H/o parathyroidectomy (usually hypocalcemic on labs)
- Upon arrival serum calcium 11.0 with albumin 3.9
- Initially resolved with IVF -- increased again to 11.8 after remaining stable for several days
- Hypercalcemia workup done -- PTHrp pending, Vit D1, 25 wnl
- given pamidronate, given calcitonin -- calcium decreased to 10.6 at time of discharge which was around his baseline for most of the admission. He had no obvious signs or sx of hypercalcemia.
- Set for repeat bmp as outpatient with follow up in 1 week with Nephrology
#Metastatic renal cell carcinoma
#Liver and bone metastases
#Immunosuppressed from chemotherapy
- Spoke with pts Oncologist Dr. Hunter who informed us that he presented with hypercalcemia on diagnosis of metastasis. This hypercalcemia improved with palliative chemo. However, patient has not had chemo in over 3 months and has not had repeat
imaging, which was due in July 2024.
- Oncology consulted during stay as patient expressed his wish to continue palliative chemo. Information given to establish care with [facility] at for ease of logistics moving forward.
#AV Fistula Creation (LUE)
#Post-op hematoma
- AVF creation -- post op hematoma -- obs over weekend, stable -- remained neurovascularly intact and was stable on discharge
#Ambulatory dysfunction
- PT/OT consulted. SNF was recommended, however decision made to go back to Assisted living with more VN/PT once medically stable
#Acute metabolic encephalopathy, likely secondary to pneumonia
Question of polypharmacy/improper medication use
- UA with pyuria, leuks, RBCs. Urine culture negative.
- CT head without acute abnormalities
- Trazodone, tramadol, other sedating agents were held during admission to accurately assess mental status
- Mental status returned to baseline.
#Community-acquired pneumonia
- Chest x-ray with mild left lower lobe PNA. possible trace parapneumonic effusion.
- Cipro started in ED. switched to ceftriaxone/azithromycin. Completed 5d course of Ceftriaxone/Azithromycin
- Respiratory status improved w/o need for supplemental oxygen
- L Chest US showing minimal L pleural effusion. No need for intervention or tap
#Asymptomatic bacteriuria, chronic Keys catheter (last changed on admission 12/16)
- h/o BPH with chronic bladder outlet obstruction
- Noted to have abnormal UA, apparent urine sediment noted in Keys bag; no fever or leukocytosis. Urine cx negative
- Was kept on Keys, home tamsulosin and dutasteride
#Gross hematuria
- likely traumatic secondary to Keys exchange
- Renal US showed no obstruction, some nonobstructing renal stones
- Outpt follow up with Dr. Angela for management/surveillance of nonobstructing kidney stones in solitary kidney and chronic urinary retention
#Anemia, multifactorial
- Likely secondary to chronic disease, secondary to ESRD and Iron deficiency
- Ferritin high, TIBC low, total iron/%sat low.
- no need of transfusion during admission
#MONA on CKD stage V
- likely pre-renal (secondary to dehydration)
- Baseline creatinine 4.0, 5.6 on arrival.
- Cr improved with IVF -- d/c IVF
- c/t avoid nephrotoxic agents, renally dose meds
- Nephrology followed, d/c with instructions for follow up in 1 week
#Non-Anion gap metabolic acidosis
- Secondary to MONA on CKD V/ESRD. Resolved with IVF as above
#Anxiety/depression
- Patient shares that he has been depressed since his passed 3 years ago. Describes racing thoughts.
- Can consider Remeron upon discharge
- Recommend outpatient PCP follow up
#Chronic dysphagia
#h/o GE junction stenosis s/p esophageal dilation
#h/o achalasia
- Had esophageal dilation in August 2024 with GI
- Speech therapy evaluation with recommendations for regular solids and thin liquids, meds in applesauce, aspiration precautions.
#Orthostatic hypotension
#Primary hypertension
- Home medications also included midodrine 5 mg as needed for SBP <100 or symptomatic dizziness
- Blood pressure stable as of now - amlodipine held on admission for orthostatic hypotension
#Hypothyroidism - Unclear etiology, home regimen includes levothyroxine 75 mcg daily - TSH normal
#GERD - continued on pantoprazole 40 mg twice daily
#Dyslipidemia - No known ASCVD history, home medications include moderate intensity statin, aspirin which were continued during his stay.
#Moderate Protein Calorie Malnutrition - Pts weight previous admission listed as 158 lbs (10/17) reflective of a 17 lb (11%) weight loss in two months, significant. Encouraged small frequent meals and snacks. Likely component of depression vs. Stage
IV cancer
#Stage II pressure injury (Coccyx), POA - No signs of infection. Managed with adhesive foam placed and dressing changes.
Important imaging findings :
CT Head W/o Iv Contrast:
Stable examination. No acute intracranial findings or significant interval change.
CR Chest - 2 Views :
Mild left lower lobe pneumonia. Possible trace parapneumonic effusion.
US Renal With Bladder:
No sonographic evidence for right hydronephrosis. Right nephrolithiasis and a suspected small urinary bladder calculus.
US Chest - Left:
Minimal left pleural effusion
Discharge Plan
-
Patient Disposition: Assisted Living
Discharge Diagnosis/Procedures: Metabolic Encephalopathy, Hypercalcemia, renal cell cancer, Community Acquired Pneumonia, Asymptomatic Bactiuria, MONA on CKD, AV Fistula Creation
Condition: Good
Additional Diets: IDDSI-6 Soft and Bite Sized
Activity: As tolerated
Driving Restrictions: No driving for 1 week
Bathing Restrictions: OK to Shower
Other Services: VN and PT
Activity Restrictions/Additional Instructions:
KEYS LAST CHANGED 12/16/2024
Stand Alone Forms: DC Instr - Vascular OR
Referrals:
Bubba Gomez DO [Active] - As needed (Follow up with Dr. Hunter or call to schedule appointment at [facility])
Kristine Bernal DO [Family Provider] -
Robles Angela MD [Active] - in two to three weeks
Nazanin Yang CRNP [Specified Professional Personl] - 01/03/25 3:00 pm
Prescriptions:
Continued
acetaminophen 325 mg Tablet
650 mg PO Q6HPRN PRN (Reason: mild pain)
atorvastatin 20 mg Tablet
20 mg PO HS
aspirin 81 mg Tablet,Delayed Release (Dr/Ec)
81 mg PO DAILY
levothyroxine 75 mcg Tablet
75 mcg PO DAILY
tamsulosin 0.4 mg Capsule
0.8 mg PO NOON
trazodone 100 mg Tablet
100 mg PO HS
cholecalciferol (vitamin D3) [Vitamin D3] 50 mcg (2,000 unit) Tablet
50 mcg PO DAILY
dutasteride [Avodart] 0.5 mg Capsule
0.5 mg PO Q48H
pantoprazole [Protonix] 40 mg tablet,delayed release (DR/EC)
40 mg PO BID
midodrine 5 mg tablet
5 mg PO TIDPRN PRN (Reason: dizziness or sbp<100)
polyethylene glycol 3350 17 gram Powder In Packet
17 g PO DAILYPRN PRN (Reason: constipation) Qty: 30 0RF
miconazole nitrate [Zeasorb AF] 2 % Powder
1 applic TOPICAL BID
Rx Instructions:
fungal rash, self admin
amlodipine 5 mg Tablet
5 mg PO DAILY
tramadol 50 mg Tablet
50 mg PO Q12H
Rx Instructions:
0800, 2000
fenofibrate nanocrystallized 145 mg Tablet
145 mg PO DAILY
Discharge Orders:
Discharge Patient (As Directed); Ordered 12/28/24
Ordered By: Rikki Fierro
Discharge Date and Time
Discharge Date/Time: 12/28/24 18:11
Print Language: SLOVENIAN
[2024-12-29 09:36] LABS: PTH Related Peptide LC-MS/MS 23.2 pmol/L (0.0-2.3)
== END 2024-12-28 18:11 | disposition home health service (06) | DRG 673 ==
LOC: 3 WEST ACU 18:28
PROVIDERS: Nurse Practitioner; Specialist; Student in an Organized Health Care Education/Training Program; Surgery Vascular Surgery; ADMITTING PHYSICIAN Internal Medicine; ATTENDING PHYSICIAN Internal Medicine; CONSULT PHYSICIAN Internal Medicine; CONSULT PHYSICIAN Internal Medicine Hematology & Oncology; CONSULT PHYSICIAN Urology; EMERGENCY PHYSICIAN Emergency Medicine; FAMILY PHYSICIAN Hospitalist
PROC: 03180JD Bypass Left Brachial Artery to Upper Arm Vein with Synthetic Substitute, Open Approach (ICD-10-PCS; 2024-12-22)
DX: N17.9 Acute kidney failure, unspecified (principal); G93.41 Metabolic encephalopathy; J18.9 Pneumonia, unspecified organism; I12.0 Hypertensive chronic kidney disease with stage 5 chronic kidney disease or end stage renal disease; E87.20 Acidosis, unspecified; E44.0 Moderate protein-calorie malnutrition; N13.8 Other obstructive and reflux uropathy; C64.9 Malignant neoplasm of unspecified kidney, except renal pelvis; C78.7 Secondary malignant neoplasm of liver and intrahepatic bile duct; C79.51 Secondary malignant neoplasm of bone; D84.821 Immunodeficiency due to drugs; L76.32 Postprocedural hematoma of skin and subcutaneous tissue following other procedure; E83.52 Hypercalcemia; R31.0 Gross hematuria; N18.6 End stage renal disease; K21.9 Gastro-esophageal reflux disease without esophagitis; D63.1 Anemia in chronic kidney disease; F41.9 Anxiety disorder, unspecified; F32.A Depression, unspecified; I95.1 Orthostatic hypotension; L89.152 Pressure ulcer of sacral region, stage 2; E78.00 Pure hypercholesterolemia, unspecified; E03.9 Hypothyroidism, unspecified; N40.1 Benign prostatic hyperplasia with lower urinary tract symptoms; N20.0 Calculus of kidney; T45.1X5A Adverse effect of antineoplastic and immunosuppressive drugs, initial encounter; E86.0 Dehydration; G47.33 Obstructive sleep apnea (adult) (pediatric); Z88.0 Allergy status to penicillin; Z88.2 Allergy status to sulfonamides; N32.0 Bladder-neck obstruction; Z87.11 Personal history of peptic ulcer disease; Z90.5 Acquired absence of kidney; Z87.891 Personal history of nicotine dependence; Z79.890 Hormone replacement therapy; Z79.82 Long term (current) use of aspirin; Z79.899 Other long term (current) drug therapy; K59.00 Constipation, unspecified; Z86.006 Personal history of melanoma in-situ; Z11.52 Encounter for screening for COVID-19
CPT/HCPCS: 51702; 70450; 71046; 76604; 76770; 80048; 80053; 81003; 81015; 82306; 82533; 82570; 82652; 82728; 83519; 83540; 83550; 83605; 83735; 83970; 84100; 84145; 84300; 84443; 85025; 86850; 86900; 86901; 87040; 87070; 87077; 87086; 87186; 87502; 87811; 92526; 92610; 93005; 96374; 96375; 97116; 97163; 97167; 97530; 97535; 99285; J0630; J2430; J2916

== ENCOUNTER 2025-01-01 08:06 | Inpatient (IN) | payer OTHER, SELFPAY ==
[2024-12-30] VITALS (11 sets, daily range): BP systolic 98–130; BP diastolic 55–72; BMI 21.0; BMI 20.7
[2024-12-30 13:32] LABS: % Basophils 0.4 % (0-2); % Eosinophils 3.5 % (0-6); % Immature Granulocytes 0.6 % (0-0.5); % Lymphocytes 16.4 % (20.5-51.1); % Monocytes 7.7 % (1.7-9.3); % Neutrophils 71.4 % (42.2-75.2); Absolute Eosinophils 0.3 10^3/uL (0-0.7); Absolute Lymphocytes 1.2 10^3/uL (1.2-3.4); Absolute Monocytes 0.6 10^3/uL (0.1-0.6); Absolute Neutrophils 5.1 10^3/uL (1.4-6.5); Hematocrit 26.6 % (39.0-52.0); Hemoglobin 8.4 g/dL (13.0-18.0); Mean Corp Hgb Conc. 31.6 g/dL (33.0-37.0); Mean Corpuscular Hgb 32.3 pg (27.0-31.0); Mean Corpuscular Volume 102.3 fL (80.0-94.0); Mean Platelet Volume 10.3 fL (7.4-10.4); Nucleated Red Blood Cells % 0 % (-); Platelet Count 149 10^3/uL (130-400); White Blood Cell Count 7.1 10^3/uL (4.8-10.8)
[2024-12-30 13:34] LABS: ALT (SGPT) 14 U/L (0-50); AST (SGOT) 58 U/L (17-59); Alkaline Phosphatase 62 U/L (38-126); Blood Urea Nitrogen 45 mg/dl (9-20); Calcium 10.8 mg/dl (8.4-10.2); Carbon Dioxide 22 mmol/L (22-30); Chloride 111 mmol/L (98-107); Estimated Creatinine Clearance 13 ml/min; Glucose 83 mg/dl (70-99); Potassium 4.8 mmol/L (3.5-5.1); Sodium 141 mmol/L (135-145); Total Bilirubin 0.9 mg/dl (0.2-1.3); Total Protein 5.5 g/dl (6.3-8.2); eGFR 14.59
--- NOTE | 2024-12-30 14:09 | ED.GENMED ---
History of Present Illness
General
Chief Complaint: Change in Mental Status
Source: patient
Exam Limitations: none
Time Seen by Provider: 12/30/24 14:06
Nursing documentation reviewed up to this point in time: agreed with
History of Present Illness
History of Present Illness:
84-year-old male with a past medical history of hypertension, hyperlipidemia, metastatic renal cancer, chronic renal failure, who presents emergency department today with concerns of change in mental status. Of note, he was discharged from both
some hospital 2 days ago for UTI and metabolic encephalopathy. His confusion was attributed to his UTI at the time as well as elevated calcium levels. Spoke to staff from [employer] reports that when she saw him today, he was out of it
and was slurring his words. The last time the tech remembers him speaking normally was last night. He has not had any fevers. Son reports that he is confused because he was just in the hospital and son reports he is refusing to eat. Pt did not start
dialysis yet. Patient himself denies any confusion, any chest pain, any shortness of breath any abdominal pain, nausea vomiting, burning with urination, urinary frequency, flank pain.
Past History
Past History
ED Past Medical History: Other (Kidney cancer status post left nephrectomy, hypertension, hyperlipidemia, BPH)
ED Past Surgical History: Other (Left-sided nephrectomy, inguinal hernia repair, septoplasty)
Social History
Tobacco: Non-smoker
Alcohol: None
Drug: None
Personal:
Living: other
Review of Systems
Review of Systems
All Other Systems: ROS reviewed and negative except as documented in HPI and ROS
Phy Exam
Physical Exam
Physical Exam:
General: Patient is well appearing and in no acute distress, chronically ill-appearing
Skin: Warm and dry, no rashes or lesions
Head: Normocephalic, atraumatic
Eyes: Sclera non-icteric. EOMs intact.
Cardiac: Regular rate and rhythm, no murmurs
Peripheral Vascular: No lower extremity swelling or edema
Pulm: Normal respiratory effort, no wheezes, rales, rhonchi
Abdomen: No abdominal tenderness to palpation
Neuro: Patient oriented to person but not place or time. CN II-XII intact, no focal neurologic deficits.
Psychiatric: Appropriate mood and affect.
Course
Orders/Labs/Results
Orders:
Orders
12/30/24 13:10
EKG [Electrocardiogram (*1)] Urgent
Reason for Study: Atrial Fibrillation
12/30/24 13:11
EKG- Treatment ONCE
12/30/24 13:15
Complete Blood Count/With Diff Urgent
Comprehensive Metabolic Panel Urgent
12/30/24 14:13
CT Head W/o Iv Contrast Urgent
Comment:
Reason For Exam: confusion, altered mental status
12/30/24 Dinner
Regular
12/30/24 15:26
Urinalysis Reflex To Culture Urgent
Date Specimen was Collected: 12/30/24
Time Specimen was Collected: 15:19
Urine Microscopic Reflex Cult Urgent
Urine Culture Urgent
RUBINA Source: U
Specimen Description:
Date Specimen was Collected: 12/30/24
Time Specimen was Collected: 15:19
12/30/24 16:45
MRI Brain [MR Brain Without Contrast] Routine
Comment:
Reason For Exam: Altered Mental Status, metastatic Cancer
Recent pill cam endoscopy?: No
12/30/24 16:46
Aspirin 325 mg PO NOW STA
12/30/24 16:47
Admit/Transfer Patient As Directed
Co-Sign Provider:
Level of Care: Observation services
Assign to:: Telemetry
Physician / Group: hospitalist
Diagnosis: Altered mental status
Reason for Telemetry: Arrhythmia
Date to Stop Telemetry: 01/02/25
Time to Stop Telemetry: 11:00
12/30/24 16:49
PRN Pain Medication Management As Directed
May give lesser potent ordered pain med per pt: Yes
preference::
Protocol:: Medication orders for pain may be administered in a
manner that supports deferring to patient preference
when the pt is:
- Requesting an ordered lesser potent pain medication.
Least to most potent pain medications are defined
as: acetaminophen < NSAID < tramadol < opioids
(morphine, oxycodone, hydromorphone).
- Requesting a lesser dose of the same medication IF
ORDERED.
- Requesting a less intrusive route of administration
if both routes are prescribed by the provider (PO <
IV).
12/30/24 16:52
Code Status As Directed
Resuscitation Status: Full Code
12/30/24 17:00
0.9% Sodium Chloride 1000 ml [Nss] 1,000 ml IV 100 mls/hr
12/30/24 17:32
Midodrine [ProAmatine] 5 mg PO TIDPRN PRN
Polyethylene Glycol Powder [Miralax] 17 grams PO DAILYPRN PRN
12/30/24 17:45
dutasteride [Avodart] 0.5 mg PO Q48H
12/30/24 18:00
Flush (0.9% Sodium Chloride) [Flush (Nss)] See Dose Instructions IV PER PROTOCOL
Tramadol HCl [Ultram] 50 mg PO Q12H
12/30/24 19:18
Activity As Directed
Activity Level: As Tolerated
Notify MD As Directed
Notify physician if: Bridge Admission orders placed.
Notify attending physician:
-- upon arrival to unit
OR
-- when patient is identified as an ED hold
Vital Signs As Directed
Frequency: Per unit guidelines
DX Deep Vein Thrombosis Video Routine
12/30/24 20:00
Heparin 5,000 units SC Q12
Miconazole Nitrate [Desenex/Mitrazol/Zeasorb] See Dose Instructions TOPICAL BID
Pantoprazole [Protonix] 40 mg PO BID
12/30/24 22:00
Atorvastatin [Lipitor] 20 mg PO HS
12/31/24 06:00
Levothyroxine [Synthroid] 75 mcg PO DAILY@0600
12/31/24 08:00
Aspirin Low Dose EC [Aspir Low (Enteric Coated)] 81 mg PO DAILY
Cholecalciferol (Vitamin D3) [VITAMIN D3 (cholecalciferol)] 50 mcg PO DAILY
Fenofibrate 145 [Tricor] 145 mg PO DAILY
12/31/24 12:00
Tamsulosin [Flomax] 0.8 mg PO NOON
01/02/25 11:00
DC Protocol for Telemetry ONCE
Abnormal Lab Results
12/30/24 12/30/24
13:15 15:26
RBC 2.60 L 10^6/uL
(4.70-6.10)
Hgb 8.4 L g/dL
(13.0-18.0)
Hct 26.6 L %
(39.0-52.0)
MCV 102.3 H fL
(80.0-94.0)
MCH 32.3 H pg
(27.0-31.0)
MCHC 31.6 L g/dL
(33.0-37.0)
RDW 17.0 H %
(11.5-14.5)
Immature Gran % 0.6 H %
(0-0.5)
Lymphocytes % 16.4 L %
(20.5-51.1)
Chloride 111 H mmol/L
(98-107)
BUN 45 H mg/dl
(9-20)
Creatinine 3.9 H mg/dL
(0.7-1.3)
Calcium 10.8 H mg/dl
(8.4-10.2)
Total Protein 5.5 L g/dl
(6.3-8.2)
Albumin 3.0 L g/dl
(3.5-5.0)
Ur Occult Blood Reflex 4+ A
(Negative)
Leukocyte Esterase Rfl 1+ A
(Negative)
Urine RBC 30-40 A /HPF
(0-2)
Urine Bacteria (Reflex) Few A
(Negative)
Urine Albumin (Reflex) 2+ A
(Neg - Trace)
12/30/24 13:15
12/30/24 13:15
Vital Signs
Initial and Last Documented VS:
Initial Vital Signs
Pulse Resp
92 21
12/30/24 13:01 12/30/24 13:01
Last Documented Vital Signs
Temp Pulse Resp BP Pulse Ox
97.1 F 89 20 126/64 100
12/30/24 19:05 12/30/24 19:05 12/30/24 19:05 12/30/24 19:05 12/30/24 19:05
MDM/Problems Addressed
Differential Diagnosis Includes:
Ischemic stroke, delirium, dementia, metabolic encephalopathy
MDM/Problems Addressed:
84-year-old male with a past medical history of metastatic renal cancer department today with concerns of altered mental status. He was seen 2 days ago in the hospital was discharged with urinary tract infection as well as metabolic encephalopathy
secondary to hypercalcemia. On my physical exam, patient does appear confused and will occasionally slur his words. Talk to staff who notes an acute change as well. Considering patient was just discharged 2 days ago, did talk to hospitalist to
discharge patient who came down to evaluate patient in the emergency department agrees that there is change. Will readmit to hospital, CT scan of the head today is negative for any acute intracranial abnormality.
*Pulse Oximetry
Patient hypoxic: no
*Critical Care Note
Total Time (30-74mins, 75-104mins- exclusive of procedures): Not Applicable
Data Reviewed
Review of Other/Old Records Reveals: Records (Reviewed discharge summary from 12/28/2024 patient seen for acute UTI and metabolic encephalopathy)
Source: patient and records
ED Attending Note
-
Portions of this chart may have been created with voice recognition software.� Occasional wrong word or��sound alike� substitutions may have occurred due to the inherent limitations of voice recognition software.
Discharge Plan
Departure
Patient Disposition: Admit
Date of Disposition: 12/30/24
Time of Disposition: 16:21
Admit to: Med/Surg
Admit to doctor: Dr. Fierro
Presentation/result/management discussed w/ accepting MD/DO: Hospitalist
Condition: Fair
Discharge Problem:
Change in mental status
Interventions
Interventions:
*Risk Screen - Suicide Last Done: 12/30/24 13:04
*General Assessment Last Done: 12/30/24 13:04
*Neglect/Abuse Screening Last Done: 12/30/24 13:04
*ED- Fall Risk Assessment Last Done: 12/30/24 13:04
*ED COVID-19 Vaccine History Last Done: 12/30/24 13:04
*Nursing Disposition Last Done: 12/30/24 18:59
ED- Pulmonary Assessment Last Done: 12/30/24 13:12
ED-Psychological Assessment Last Done: 12/30/24 18:59
ED- Neurological Assessment Last Done: 12/30/24 13:12
ED- Cardiac Assessment Last Done: 12/30/24 13:12
ED Swallowing Screen Last Done: 12/30/24 17:22
Discharge Date and Time
Discharge Date/Time: 12/30/24 19:00
[2024-12-30 15:52] LABS: Urine Albumin 2+ (Neg - Trace); Urine Bilirubin Negative (Negative); Urine Character Clear (Clear); Urine Color Yellow; Urine Glucose Negative (Negative); Urine Ketone Negative (Negative); Urine Leukocyte 1+ (Negative); Urine Nitrite Negative (Negative); Urine Occult Blood 4+ (Negative); Urine Specific Gravity 1.015 (<1.030); Urine Urobilinogen Negative (Neg - 1+)
[2024-12-30 16:26] LABS: Urine Bacteria Few (Negative); Urine Granular Cast >15 /LPF (0); Urine Hyaline Cast 0-2 /LPF (0-2); Urine Red Blood Cell 30-40 /HPF (0-2)
--- NOTE | 2024-12-30 17:16 | HPS.HSE ---
Addendum entered and electronically signed by Omar Rick MD, Resident 12/31/24 12:51:
HPI is INCORRECT, patient does NOT have pancreatic cancer, he has stage IV RCC. Assessment and Plan is correct for Metastatic RCC.
Original Note:
Family Physician
-
Family Physician: Kristine Bernal, DO
Chief Complaint
-
Altered Mental Status
History of Present Illness
84 year old male with past medical history significant for stage IV pancreatic cancer with bone and liver mets who was recently admitted for CAP, UTI, and TME and was discharged on 12/28/2024 returns today from facility with acute symptoms of altered
mental status. He is known to our service and was seen by me during his last hospital stay. He states he can remember me but doesn't know why. He is able to answer certain questions regarding his person but has intermittent bouts of nonsensical
speech and inappropriate responses (answering '[email or web address]' or 'R' or '[place]' when asked what year it is or where he is). He is not aware of any changes or why he is in the hospital. he does not endorse any symptoms. He is aware he has and is
being treated for cancer but cannot recall what type. He is cooperative and willing to answer questions.
Medical History
Past Medical History
Past Medical History: Reports Other
Additional Past Medical History:
Stage IV Pancreatic cancer, ESRD, hypercalcemia, anemia, depression, chronic dysphagia,orthostatic hypotension, Primary hypertension, hypothyroidism, GERD, dyslipidemia,
Past Surgical History: Reports Other (BL Inguinal Hernia Repair, Septoplasty, L nephrectomy, Dilation of esophagus )
Additional Past Surgical History:
Parathyroidectomy, Left nephrectomy, Gastroesophageal junction dilation
Social History
Unable to obtain full social history at this time due to: Acuity
Tobacco: Non-smoker
Alcohol: None
Drug: None
Living: Assisted Living
Family History
Family History: Not pertinent
Allergies / Home Medications
Allergies reflects when Allergies were last updated in [facility].
Home Medications with original date entered in [facility]
Allergy/Medication List:
Allergies
Allergy/AdvReac Type Severity Reaction Status Date / Time
Penicillins Allergy Unknown- Verified 12/16/24 16:06
tolerates
cephalosporins
Sulfa (Sulfonamide Allergy Unknown Verified 12/16/24 12:57
Antibiotics)
Home Medications
acetaminophen 325 mg tablet 650 mg PO Q6HPRN PRN mild pain 05/12/24
aspirin 81 mg tablet,delayed release 81 mg PO DAILY Blood Clot Prevention/Tx 05/12/24
atorvastatin 20 mg tablet 20 mg PO HS High Cholesterol 05/12/24
cholecalciferol (vitamin D3) 50 mcg (2,000 unit) tablet (Vitamin D3) 50 mcg PO DAILY Supplement 05/12/24
levothyroxine 75 mcg tablet 75 mcg PO DAILY Thyroid 05/12/24
tamsulosin 0.4 mg capsule 0.8 mg PO NOON Urinary Issue 05/12/24
trazodone 100 mg tablet 100 mg PO HS Sleep 05/12/24
dutasteride 0.5 mg capsule (Avodart) 0.5 mg PO Q48H Urinary Issue 08/27/24
pantoprazole 40 mg tablet,delayed release (Protonix) 40 mg PO BID GERD 09/23/24
midodrine 5 mg tablet 5 mg PO TIDPRN PRN dizziness or sbp<100 10/17/24
polyethylene glycol 3350 17 gram oral powder packet 17 g PO DAILYPRN PRN constipation #30 ea 10/26/24
amlodipine 5 mg tablet 5 mg PO DAILY Blood Pressure 12/16/24
fenofibrate nanocrystallized 145 mg tablet 145 mg PO DAILY High Cholesterol 12/16/24
miconazole nitrate 2 % topical powder (Zeasorb AF) 1 applic topical BID Skin Issues 12/16/24
tramadol 50 mg tablet 50 mg PO Q12H Pain 12/16/24
Review of Systems
-
Unable to obtain full review of systems at this time due to: Acuity
History Source: Patient
A 12 point ROS was completed and negative except as noted: Yes
Constitutional: Reports No Symptoms
EENT: Reports No Symptoms
Respiratory: Reports No Symptoms
Cardiac: Reports No Symptoms
Abdomen/GI: Reports No Symptoms
: Reports No Symptoms
Musculoskeletal: Reports No Symptoms
Skin: Reports No Symptoms
Neurological: Reports No Symptoms
Endocrine: Reports No Symptoms
Physical Exam
Vital Signs
Vital Signs
Temp Pulse Resp BP Pulse Ox
97.6 F 90 14 130/72 98
12/30/24 13:04 12/30/24 16:00 12/30/24 16:00 12/30/24 16:00 12/30/24 16:00
Physical Exam
General: No Apparent Distress, Comfortable and Appears Chronically Ill
HEENT: NormoCephalic, Anicteric, Moist mucous membranes, No Ptosis, Nose Appears Normal and Ears Appear Normal
Respiratory: Clear; No Wheezes, Rales or Rhonchi
Cardiac: S1/S2 and Irregular Rhythm; No Murmur or Rub
GI: Soft, Non Tender, Non Distended and Normal Bowel Sounds
Genito-urinary: Clear Urine and Coburn
Musculoskeletal: No Clubbing, No Cyanosis and No Edema
Skin: Warm, Dry and IV/Catheter Site
Neuro: Awake, Alert, Nonfocal/grossly intact, No Sensory Deficits and Other (+ pass pointing); No Oriented
Psych: Confused
Laboratory Results
-
12/30/24 13:15
12/30/24 13:15
Laboratory Results
Total Bilirubin 0.9 mg/dl (0.2-1.3) 12/30/24 13:15
AST 58 U/L (17-59) 12/30/24 13:15
ALT 14 U/L (0-50) 12/30/24 13:15
Alkaline Phosphatase 62 U/L (38-126) 12/30/24 13:15
Impression/Plan
-
84 yo M with history of CKD stage V (s/p AVF creation), metastatic RCC s/p left nephrectomy, bone and liver metastases who presents with acute encephalopathy 2 days after prior admission
Spoke with son Carlos Eduardo over the phone. He last saw his father in person 11/28/2024 and reports that he was coherent, though he had lost weight. He reports that the first real instance of significant altered mental status was in November when he was last
admitted (12/16/2024). We discussed the patient's elevated PTHrP from prior visit as well as prognosis. Family is aware of incurable disease, but at this time would like life saving measure and full code. Decision may change with MRI findings. No
hospice at this time.
#Acute encephalopathy (metabolic vs. metastatic)
- Patient more altered compared to prior visit upon discharge
- MMSE scoring 8-10/30
- Motor strength UE 5/5 symmetric, LE 4/5 symmetric, positive past pointing (R>L)
- head ct showing no acute intracranial abnormality
- Patient has stage IV metastatic RCC, has not had chemotherapy in the last several months and has not had oncology follow up PET scanning since July 2024
- concern for mets to brain -- Brain MRI
- acute stroke unlikely but not excluded -- CT head clear -- pending MRI -- Aspirin 325 then c/w aspirin 81mg qd
- neurology consult
#Irregular heart rate
- rate on exam and for several runs on tele in ED showing irregular heart rate
- ECG showing sinus rhythm-- no prior history of arrhythmia
- will monitor on tele
#Bacteriuria
#Chronic Coburn catheter
- UA showing LE, RBCs, Few bacteria -- reflex culture
- lower suspicion for acute UTI, more likely chronic colonization, however patient unreliable historian
- observe culture
#CKD stage V/ESRD
- s/p AVF creation 12/22/24
- no emergent need for dialysis at this time
- live games dealer 3.9; trend bmps
#Malignant Hypercalcemia
#H/o parathyroidectomy
#Metastatic renal cell carcinoma
#Liver and bone metastases
- elevated calcium on admission to 10.8, however stable from discharge
- patient had higher calcium level at 12.1 w/o sx, therefore hypercalcemia unlikely to be related to his current presentation
- will start on IVF
#Anemia, multifactorial
- Likely secondary to chronic disease, secondary to CKD V/ESRD and Iron deficiency
- Follow CBC
- transfuse if hgb <7
#Orthostatic hypotension
#Primary hypertension
- Home medications also included midodrine 5 mg as needed for SBP <100 or symptomatic dizziness
- Hold amlodipine to avoid hypotension given AMS
#Anxiety/depression
#Hypothyroidism - Unclear etiology, home regimen includes levothyroxine 75 mcg daily - TSH normal
#GERD - C/w pantoprazole 40 mg twice daily
#Dyslipidemia - No known ASCVD history, home medications include moderate intensity statin, aspirin
#Chronic dysphagia
#h/o GE junction stenosis s/p esophageal dilation
#h/o achalasia
DVT PPx: Heparin SC
Code Status: Full Code
[2024-12-30] MEDS: ASPIRIN 325 MG PO (17:28)
[2024-12-30] MEDS: NSS 1000 IV (18:27)
[2024-12-30] MEDS: ULTRAM PO (20:52)
[2024-12-30] MEDS: PROTONIX 40 MG PO (21:13)
[2024-12-30] MEDS: LIPITOR 20 MG PO (21:13)
[2024-12-30] MEDS: HEPARIN 5000 UNITS SC (21:13)
[2024-12-30] MEDS: DESENEX/MITRAZOL/ZEASORB 1 APPLIC TOPICAL (21:14)
--- NOTE | 2024-12-31 00:22 | PTCARENOTE ---
Addendum entered by Ginna Perez RN 12/31/24 00:24:
Coburn cath in place with clear yellow urine on admission.
Original Note:
Patient arrived during change of shift. AAOX-1-2. Only able to answer a few admission questions. Denies pain or discomfort on admission. Bed alarm applied. Call salas within reach.
[2024-12-31 03:05] VITALS: BP 92/69
[2024-12-31] MEDS: NSS 1000 IV ×2 (04:51→14:50)
[2024-12-31] MEDS: SYNTHROID 75 MCG PO (05:51)
[2024-12-31] MEDS: ULTRAM 50 MG PO ×2 (05:51→18:03)
[2024-12-31 07:30] VITALS: BP 156/81
--- NOTE | 2024-12-31 07:42 | W.PN.HOSP.TC ---
Addendum entered and electronically signed by Omar Rick MD, Resident 12/31/24 13:18:
Spoke to cards regarding possible afib on tele, seen as Sinus rhythm w/ artifact, no definitive afib. Will c/w tele.
Addendum entered and electronically signed by Rikki Fierro MD 12/31/24 12:53:
Seen and examined by me independently in collaboration with the diagnostic medical sonographer.
Lab data and imaging data reviewed.
Addendum as below :
Pt is alert and oriented to self.
Family friend at bedside who finds him to be confused. He does not seems to have word finding difficulty. Speech is bit more fluent. He is still confused and still has some non sequitur's.
No motor deficit. No facial droop.
Change in mental status with word finding difficulty. Rule out intracranial disease-stroke, metastatic disease. He is known to have metastatic renal cell cancer. Has metabolic panel was okay and nothing to point to metabolic encephalopathy. His
calcium is lower than prior. With poor oral intake continue with IV fluids. Await MRI of the brain. Await neurology input.
Yesterday in the ER he had some irregularity of rhythm on auscultation. EKG on the monitor then showed A-fib. Current monitor showing possible atrial fibrillation. Will ask cardiology to come from on that.
Discussed with the son Tameka on the phone today.
Total time spent on today's encounter was 52 minutes which included time spent in counseling the patient/family regarding diagnosis and treatment plan as listed above, goals of care, and symptom management. Case was discussed with nursing staff,
specialists, and care coordinators/case management. All labs and imaging personally reviewed by me. Remainder the time spent in detailed review of previous records, lab data, imaging, and other medical provider documentation.
Original Note:
Today's Communication/Plan
-
c/w IVF, await brain MRI, neuro consult
Assessment / Plan
Assessment / Plan
84 yo M with history of CKD stage V (s/p AVF creation), metastatic RCC s/p left nephrectomy, bone and liver metastases who presents with acute encephalopathy 2 days after prior admission
Spoke with son Carlos Eduardo over the phone. He last saw his father in person 11/28/2024 and reports that he was coherent, though he had lost weight. He reports that the first real instance of significant altered mental status was in November when he was last
admitted (12/16/2024). We discussed the patient's elevated PTHrP from prior visit as well as prognosis. Family is aware of incurable disease, but at this time would like life saving measure and full code. Decision may change with MRI findings. No
hospice at this time.
#Acute encephalopathy (metabolic vs. metastatic vs. Neurodegenerative)
- Patient more altered compared to prior visit upon discharge
- MMSE scoring 8-10/30
- Motor strength UE 5/5 symmetric, LE 4/5 symmetric, positive past pointing (R>L)
- head ct showing no acute intracranial abnormality
- Patient has stage IV metastatic RCC, has not had chemotherapy in the last several months and has not had oncology follow up PET scanning since July 2024
- concern for mets to brain -- Brain MRI
- acute stroke not excluded -- CT head clear -- pending MRI -- Aspirin 325 then c/w aspirin 81mg qd
- neurology consult
#Irregular heart rate
- rate on exam and for several runs on tele in ED showing irregular heart rate
- ECG showing sinus rhythm-- no prior history of arrhythmia
- will monitor on tele
#Bacteriuria
#Chronic Coburn catheter
- UA showing LE, RBCs, Few bacteria -- reflex culture pending
- lower suspicion for acute UTI, more likely chronic colonization, however patient unreliable historian
- observe urine culture
#CKD stage V/ESRD
- s/p AVF creation 12/22/24; fistula palpable w/ improving ecchymosis from prior hematoma
- no emergent need for dialysis at this time
- trend bmp
#Malignant Hypercalcemia
#H/o parathyroidectomy
#Metastatic renal cell carcinoma
#Liver and bone metastases
- elevated calcium on admission to 10.8, however stable from discharge
- patient had higher calcium level at 12.1 w/o sx, therefore hypercalcemia unlikely to be related to his current presentation
- c/w IVF
#Anemia, multifactorial
- Likely secondary to chronic disease, secondary to CKD V/ESRD and Iron deficiency
- Follow CBC
- transfuse if hgb <7
#Orthostatic hypotension
#Primary hypertension
- Home medications also included midodrine 5 mg as needed for SBP <100 or symptomatic dizziness
- Hold amlodipine to avoid hypotension given AMS
#Anxiety/depression
#Hypothyroidism - Unclear etiology, home regimen includes levothyroxine 75 mcg daily - TSH normal
#GERD - C/w pantoprazole 40 mg twice daily
#Dyslipidemia - No known ASCVD history, home medications include moderate intensity statin, aspirin
#Chronic dysphagia
#h/o GE junction stenosis s/p esophageal dilation
#h/o achalasia
DVT PPx: Heparin SC
Code Status: Full Code
Anticipated Discharge: > 48 hours
Subjective/Interval History
-
Date of Service: December 31, 2024
Patient similarly disoriented today. Cooperative and arousable, but requiring much encouragement and probing to answer questions. He has no acute complaints and there were no overnight events.
Objective Data
-
Labs:
Laboratory Results
12/31/24
06:59
WBC Pending
Hgb Pending
Hct Pending
Plt Count Pending
Sodium Pending
Potassium Pending
Chloride Pending
Carbon Dioxide Pending
BUN Pending
Creatinine Pending
Glucose Pending
Calcium Pending
Vital Signs:
Vital Signs
Temp Pulse Resp BP Pulse Ox
97.9 F 91 20 92/69 100
12/31/24 03:05 12/31/24 03:05 12/31/24 03:05 12/31/24 03:05 12/31/24 03:05
I&O
12/30/24 12/31/24 01/01/25
06:59 06:59 06:59
Intake Total 1680 / 1680
Output Total 500 / 500
Balance 1180 / 1180
Review of Systems
-
Unable to obtain full review of systems at this time due to: Dementia and Acuity
History Source: Patient
Constitutional: Reports No Symptoms
EENT: Reports No Symptoms Reported
Respiratory: Reports No Symptoms
Cardiac: Reports No Symptoms
Abdomen/GI: Reports No Symptoms
Genitourinary: Reports No Symptoms
Musculoskeletal: Reports No Symptoms
Physical Exam
-
General: No Apparent Distress, Comfortable and Appears Chronically Ill
HEENT: Normocephalic, Atraumatic, Moist Mucous Membranes, Anicteric, Tetherow Conjunctivae, Nose Appears Normal and Ears Appear Normal
Respiratory: Clear to Auscultation; Negative Wheezes, Rales or Rhonchi
Cardiac: Regular Rhythm and S1/S2; Negative Murmur or Rub
GI: Soft, Nontender, Nondistended and Normal Bowel Sounds
Genito-urinary: Clear Urine and Coburn
Musculoskeletal: No Clubbing, No Cyanosis and No Edema
Skin: Warm, Dry, IV Access / Catheter Site and Other (palpable thrill in the LUE indicative of functioning fistula w/ surrounding ecchymosis improving from prior)
Neuro: Awake, Alert and Oriented
Psych: Calm
[2024-12-31] MEDS: ASPIR LOW (ENTERIC COATED) 81 MG PO (07:46)
[2024-12-31] MEDS: PROTONIX 40 MG PO ×2 (07:46→21:13)
[2024-12-31] MEDS: HEPARIN 5000 UNITS SC ×2 (07:46→21:13)
[2024-12-31] MEDS: VITAMIN D3 (cholecalciferol) 50 MCG PO (07:46)
[2024-12-31] MEDS: DESENEX/MITRAZOL/ZEASORB 1 APPLIC TOPICAL ×2 (07:47→21:15)
[2024-12-31 07:53] LABS: Blood Urea Nitrogen 44 mg/dl (9-20); Calcium 10.3 mg/dl (8.4-10.2); Carbon Dioxide 19 mmol/L (22-30); Chloride 112 mmol/L (98-107); Estimated Creatinine Clearance 13 ml/min; Glucose 56 mg/dl (70-99); Potassium 4.7 mmol/L (3.5-5.1); Sodium 142 mmol/L (135-145); eGFR 15.05
[2024-12-31 07:59] LABS: % Basophils 0.5 % (0-2); % Immature Granulocytes 0.7 % (0-0.5); % Monocytes 8.2 % (1.7-9.3); % Neutrophils 72.6 % (42.2-75.2); Absolute Eosinophils 0.2 10^3/uL (0-0.7); Absolute Lymphocytes 0.9 10^3/uL (1.2-3.4); Absolute Monocytes 0.5 10^3/uL (0.1-0.6); Absolute Neutrophils 4.3 10^3/uL (1.4-6.5); Hematocrit 25.2 % (39.0-52.0); Hemoglobin 7.9 g/dL (13.0-18.0); Mean Corp Hgb Conc. 31.3 g/dL (33.0-37.0); Mean Corpuscular Hgb 31.9 pg (27.0-31.0); Mean Corpuscular Volume 101.6 fL (80.0-94.0); Mean Platelet Volume 9.9 fL (7.4-10.4); Nucleated Red Blood Cells % 0 % (-); Platelet Count 137 10^3/uL (130-400); Red Blood Cell Count 2.48 10^6/uL (4.70-6.10); Red Cell Dist. Width 16.9 % (11.5-14.5)
[2024-12-31 11:00] VITALS: BP 136/62
[2024-12-31] MEDS: FLOMAX 0.8 MG PO (12:12)
--- NOTE | 2024-12-31 12:30 | CON.NEURO ---
Neuro Assessment/Plan
Assessment
Recurrent change in mental status
Differential diagnosis includes toxic metabolic encephalopathy with underlying dementia (presumed), there is the possibility of metastasis to the brain although this is less likely. The possibility of stroke also exists as the patient has had an
acute change, reportedly.
Plan
Check MRI of brain as planned
Check additional blood work for additional metabolic abnormalities
Consider EEG based on next results
Provide thiamine although unlikely to be associated with the patient's symptomatology
Will follow
Consultation
Order
Date of Consultation: 12/31/24
Requesting Provider: Hospitalist
Reason for Consult: Change in mental status
Subjective/Objective
Subjective Data
Date of Service: December 31, 2024
Patient returns to this hospital after discharge 2 days prior to readmission due to worsening change in mental status. Patient was described as having a urinary tract infection as last admission as well as hypercalcemia and these factors were
decided to be causing mental status change at that time.
Objective Data
Vital Signs
Temp Pulse Resp BP Pulse Ox
36.6 C 88 20 156/81 100
12/31/24 07:30 12/31/24 07:30 12/31/24 07:30 12/31/24 07:30 12/31/24 07:30
Lab Results
12/31/24 06:59
12/31/24 06:59
Sodium 142 mmol/L (135-145) 12/31/24 06:59
Potassium 4.7 mmol/L (3.5-5.1) 12/31/24 06:59
BUN 44 mg/dl (9-20) H 12/31/24 06:59
Glucose 56 mg/dl (70-99) L 12/31/24 06:59
Calcium 10.3 mg/dl (8.4-10.2) H 12/31/24 06:59
Patient Allergies
Penicillins Allergy (Verified 12/16/24 16:06)
Unknown- tolerates cephalosporins
Sulfa (Sulfonamide Antibiotics) Allergy (Verified 12/16/24 12:57)
Unknown
Review of Systems
-
Unable to obtain full review of systems at this time due to: Other (confusion)
History Source: Patient
All other systems: Reviewed and negative
Neuro: Headache
Physical Exam
-
General: No Apparent Distress and Appears Stated Age
Eyes: Round OU, [place] Conjunctivae and No Ptosis; Negative Able to visualize OU
HEENT: Anicteric and Moist Mucous Membranes
Neck: Full Range of Motion
Respiratory: No Dyspnea
Cardiac: No JVD
GI: Non-distended
Skin: Unremarkable
Extremities: No Clubbing, No Cyanosis and No Edema
Psych: Negative Intact Judgement/Insight
Extended Neurological Exam
Mood & Affect: Mood Unremarkable and Affect Unremarkable
Attention Span & Concentration: Awake, Alert, Interactive and Severe Difficulty with 2 Step Request
Memory: Able to Recall (Name and date of ) and Unable to Recall Personal History
Tremor: Head Tremor Absent
Speech: Quality Unremarkable, Quantity Unremarkable and Other (Perseverative statements, unrelated statements)
Cranial Nerve II: Left Eye: Pupillary Reactivity Unremarkable, Pupillary Size Unremarkable and Visual Fletcher Intact
Cranial Nerve II: Right Eye: Pupillary Reactivity Unremarkable, Pupillary Size Unremarkable and Visual Fletcher Intact
Cranial Nerves III, IV, : Extraocular Movement: Reduced (In upgaze bilaterally) and Otherwise Unremarkable
Cranial Nerve VII: Facial Symmetry: Normal Facial Symmetry
Cranial Nerve VIII: Hearing: Unremarkable Hearing to Normal Conversational Volume
Cranial Nerves IX, X: Palate Movement: Palate Elevation Symmetric
Cranial Nerve XII: Tongue Protusion: Midline
Muscle Strength, Overall: Spontaneously Moves (All extremities)
Muscle Bulk & Tone: Bulk Unremarkable and Tone Unremarkable
Pronator Drift: No Drift in Upper Extremities
Deep Tendon Reflexes: Trace Throughout
Touch Sensation: Unremarkable
Coordination: [id number] Testing Unremarkable
Babinski Sign: Absent Bilaterally
Gait & Station: Unable to Assess
Data Reviewed
-
CT Head: Report Reviewed
MRI Head: Pending
Labs: Ordered and Report Reviewed
Reviewed with: Physician and Patient
Old Records: Summarized
Medications
-
Active Medications
Generic Name Dose Route Start Last Admin
Trade Name Freq PRN Reason Stop Dose Admin
Aspirin 81 mg 12/31/24 08:00 12/31/24 07:46
Aspirin 81 Mg (Enteric Coated) Tablet PO 01/28/25 07:59 81 mg
DAILY HARLEEN Administration
Atorvastatin Calcium 20 mg 12/30/24 22:00 12/30/24 21:13
Atorvastatin (Lipitor) 20 Mg Tablet PO 01/27/25 21:59 20 mg
HS HARLEEN Administration
Cholecalciferol 50 mcg 12/31/24 08:00 12/31/24 07:46
Cholecalciferol (Vitamin D3) 50 Mcg Tablet (2,000 Units) PO 01/28/25 07:59 50 mcg
DAILY HARLEEN Administration
Finasteride 5 mg 01/01/25 08:00
Finasteride 5 Mg Tablet PO 01/29/25 07:59
Q48H HARLEEN
Heparin Sodium 5,000 units 12/30/24 20:00 12/31/24 07:46
Heparin 5,000 Units/Ml 1 Ml Vial SC 01/27/25 19:59 5,000 units
Q12 HARLEEN Administration
Sodium Chloride 1,000 mls @ 100 mls/hr 12/30/24 17:00 12/31/24 04:51
Nss IV 1,000 mls
.Q10H HARLEEN Administration
Levothyroxine Sodium 75 mcg 12/31/24 06:00 12/31/24 05:51
Levothyroxine 75 Mcg Tablet PO 01/28/25 05:59 75 mcg
DAILY@0600 HARLEEN Administration
Miconazole Nitrate 0 applic 12/30/24 20:00 12/31/24 07:47
Miconazole Powder Bottle TOPICAL 01/27/25 19:59 1 applic
BID HARLEEN Administration
Midodrine 5 mg 12/30/24 17:32
Midodrine 5 Mg Tablet PO 01/27/25 17:31
TIDPRN PRN
dizziness or sbp<100
Pantoprazole Sodium 40 mg 12/30/24 20:00 12/31/24 07:46
Pantoprazole 40 Mg Delayed Release Tablet PO 01/27/25 19:59 40 mg
BID HARLEEN Administration
Polyethylene Glycol 17 grams 12/30/24 17:32
Polyethylene Glycol Powder 17 Grams Packet PO 01/27/25 17:31
DAILYPRN PRN
constipation
Sodium Chloride 0 flush 12/30/24 18:00
Sodium Chloride 0.9% (Flush) Syringe IV 01/27/25 17:59
PER PROTOCOL HARLEEN
Tamsulosin HCl 0.8 mg 12/31/24 12:00 12/31/24 12:12
Tamsulosin 0.4 Mg Capsule PO 01/28/25 11:59 0.8 mg
NOON HARLEEN Administration
Tramadol HCl 50 mg 12/30/24 18:00 12/31/24 05:51
Tramadol Hcl 50 Mg Tablet PO 01/27/25 17:59 50 mg
Q12H HARLEEN Administration
Home Medications
�Medication �Instructions �Recorded
acetaminophen 325 mg tablet 650 mg PO Q6HPRN PRN mild pain 05/12/24
aspirin 81 mg tablet,delayed 81 mg PO DAILY Blood Clot 05/12/24
release Prevention/Tx
atorvastatin 20 mg tablet 20 mg PO HS High Cholesterol 05/12/24
cholecalciferol (vitamin D3) 50 50 mcg PO DAILY Supplement 05/12/24
mcg (2,000 unit) tablet (Vitamin
D3)
levothyroxine 75 mcg tablet 75 mcg PO DAILY Thyroid 05/12/24
tamsulosin 0.4 mg capsule 0.8 mg PO NOON Urinary Issue 05/12/24
trazodone 100 mg tablet 100 mg PO HS Sleep 05/12/24
dutasteride 0.5 mg capsule 0.5 mg PO Q48H Urinary Issue 08/27/24
(Avodart)
pantoprazole 40 mg tablet,delayed 40 mg PO BID GERD 09/23/24
release (Protonix)
midodrine 5 mg tablet 5 mg PO TIDPRN PRN dizziness or 10/17/24
sbp<100
amlodipine 5 mg tablet 5 mg PO DAILY Blood Pressure 12/16/24
fenofibrate nanocrystallized 145 145 mg PO DAILY High Cholesterol 12/16/24
mg tablet
miconazole nitrate 2 % topical 1 applic topical BID Skin Issues 12/16/24
powder (Zeasorb AF)
tramadol 50 mg tablet 50 mg PO Q12H Pain 12/16/24
polyethylene glycol 3350 17 gram 17 g PO DAILYPRN PRN constipation 12/30/24
oral powder packet
Past History
Past History
ED Past Medical History: Cancer (Renal cell carcinoma stage IV, metastasis to bone, liver, lungs), HTN, Hypercholesterolemia, Renal failure and Other (BPH, palliative radiation to L1, orthostatic hypotension)
ED Past Surgical History: Urological (Left nephrectomy 1985) and Other (inguinal hernia repair, septoplasty, AV fistula placement, parathyroidectomy)
Social History
Tobacco: Non-smoker
Alcohol: None
Drug: None
Personal:
Living: other
Family History
Family History: Other (Reviewed and noncontributory)
[2024-12-31 15:17] VITALS: BP 156/78
[2024-12-31] MEDS: VITAMIN B1 100 MG PO (15:42)
[2024-12-31 16:31] LABS: Folate 3.1 ng/ml (2.76-20); Vitamin B12 698 pg/ml (239-931)
[2024-12-31 19:55] VITALS: BP 108/50
[2024-12-31] MEDS: LIPITOR 20 MG PO (21:13)
[2024-12-31 23:41] VITALS: BP 111/63
[2025-01-01] MEDS: NSS 1000 IV ×3 (01:04→22:50)
[2025-01-01 03:38] VITALS: BP 116/68
[2025-01-01] MEDS: ULTRAM 50 MG PO ×2 (05:15→18:21)
[2025-01-01] MEDS: SYNTHROID 75 MCG PO (05:15)
--- NOTE | 2025-01-01 07:11 | W.PN.NEURO.1 ---
Today's Communication / Plan
-
.
Subjective/Objective
Subjective Data
Date of Service: January 01, 2025
Neurology Consultation Note.
HPI: This is an 84-year-old man who presented to [facility] on December 30, 2024 with encephalopathy.
ER VS: 119/69-98/55, 92, afebrile
EKG: Sinus tachycardia at 112, QTc Int : 455 ms
PDMP: Tramadol 50 mg 60 tablets filled in on 12/12/2024.
Labs: Glucose�83�56, creatinine�3.9, normal sodium, vitamin B12, hemoglobin�8.4, MCV�102.3, platelets�149, UA�positive for leukocyte esterase 1+, normal WBCs, negative nitrates.
TFTs were unremarkable in 11/2024.
CT head wo contrast�diffuse atrophy.
Thoracic MRI(08/27/2024) scattered metastatic disease within the thoracic vertebral bodies as detailed most prominent involving the T2 vertebral body with extension into the posterior elements and left neural foramen at this level. No overt
extension into the spinal canal/cord within the limits of unenhanced technique.
The patient is unable to provide a history.
PMH: stage IV L RCC, chronic L1 compression fracture, HTN, DLP, CKD, hypothyroidism, GERD, h/o achalasiavitamin D deficiency, BPH, autonomic dysfunction, chronic dysphagia
PSH: Left nephrectomy, bilateral inguinal hernia repair L septoplasty, esophageal dilation, left thyroidectomy
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
All: Sulfa's, penicillin
ROS: Negative for headache, chest pain, abdominal pain; change in vision or strength or s.ensation
General: Well developed. In no acute distress.
Cardio: Regular rate and rhythm without murmur. Extremities are without cyanosis or edema.
Neuro:
Mental Status: Alert, oriented to name, date of , not to age, season, month or year. Expressive and receptive aphasia. Perseverates. Follows simple requests intermittently. No hemineglect.
Cranial Nerves: Pupils are equally round and reactive to light. EOMs full. BTT BL. No ptosis. No nystagmus. Face symmetric. Impaired hearing AU. The palate elevated well. SCMs and traps 5/5. Tongue midline. No dysarthria.
Motor: Moves all limbs antigravity symmetrically purposefully.
Reflexes: Bilateral grasp
Sensory: Limited due to poor attention/ aphasia
Coordination: No tremors or myoclonic movements.
Gait: deferred
Assessment and Plan:
I. Multifactorial encephalopathy (metabolic, toxic).
II. Stage IV RCC
III. Chronic immunosuppression
IV. Chronic L1 vertebral mets, s/p palliative radiation
-Aspiration precautions.
-please check ammonia, CK
-Avoid SPANISH IN[employer]CTOR depressants
-Brain MRI wo uday
-Will contact patient's family to obtain collateral history about functional cognitive decline.
I personally reviewed all radiology and labs along with past medical records pertinent to current medical problems. Total time spent in patient care is 60 minutes.
Thank you for allowing us to participate in the care of this patient. We will continue to follow. Please do not hesitate to contact us with any questions or concerns.
Objective Data
Vital Signs
Temp Pulse Resp BP Pulse Ox
36.1 C 73 16 116/68 96
01/01/25 03:38 01/01/25 03:38 01/01/25 03:38 01/01/25 03:38 01/01/25 03:38
Sodium 142 mmol/L (135-145) 12/31/24 06:59
Potassium 4.7 mmol/L (3.5-5.1) 12/31/24 06:59
BUN 44 mg/dl (9-20) H 12/31/24 06:59
Glucose 56 mg/dl (70-99) L 12/31/24 06:59
Calcium 10.3 mg/dl (8.4-10.2) H 12/31/24 06:59
Vitamin B12 Cancelled 12/31/24 13:42
Patient Allergies
Penicillins Allergy (Verified 12/16/24 16:06)
Unknown- tolerates cephalosporins
Sulfa (Sulfonamide Antibiotics) Allergy (Verified 12/16/24 12:57)
Unknown
Vital Signs and Labs
-
Vital Signs and Labs:
Vital Signs
Temp Pulse Resp BP Pulse Ox
37.1 C 78 18 103/41 98
01/01/25 07:25 01/01/25 07:25 01/01/25 07:25 01/01/25 07:25 01/01/25 07:25
Sodium 142 mmol/L (135-145) 12/31/24 06:59
Potassium 4.7 mmol/L (3.5-5.1) 12/31/24 06:59
BUN 44 mg/dl (9-20) H 12/31/24 06:59
Glucose 56 mg/dl (70-99) L 12/31/24 06:59
Calcium 10.3 mg/dl (8.4-10.2) H 12/31/24 06:59
Vitamin B12 Cancelled 12/31/24 13:42
Medications
-
Medications:
Generic Name Dose Route Start Last Admin
Trade Name Freq PRN Reason Stop Dose Admin
Aspirin 81 mg 12/31/24 08:00 01/01/25 08:17
Aspirin 81 Mg (Enteric Coated) Tablet PO 01/28/25 07:59 81 mg
DAILY HARLEEN Administration
Atorvastatin Calcium 20 mg 12/30/24 22:00 12/31/24 21:13
Atorvastatin (Lipitor) 20 Mg Tablet PO 01/27/25 21:59 20 mg
HS HARLEEN Administration
Cholecalciferol 50 mcg 12/31/24 08:00 01/01/25 08:17
Cholecalciferol (Vitamin D3) 50 Mcg Tablet (2,000 Units) PO 01/28/25 07:59 50 mcg
DAILY HARLEEN Administration
Finasteride 5 mg 01/01/25 08:00 01/01/25 08:17
Finasteride 5 Mg Tablet PO 01/29/25 07:59 5 mg
Q48H HARLEEN Administration
Heparin Sodium 5,000 units 12/30/24 20:00 01/01/25 08:17
Heparin 5,000 Units/Ml 1 Ml Vial SC 01/27/25 19:59 5,000 units
Q12 HARLEEN Administration
Sodium Chloride 1,000 mls @ 100 mls/hr 12/30/24 17:00 01/01/25 01:04
Nss IV 1,000 mls
.Q10H HARLEEN Administration
Levothyroxine Sodium 75 mcg 12/31/24 06:00 01/01/25 05:15
Levothyroxine 75 Mcg Tablet PO 01/28/25 05:59 75 mcg
DAILY@0600 HARLEEN Administration
Miconazole Nitrate 0 applic 12/30/24 20:00 01/01/25 08:19
Miconazole Powder Bottle TOPICAL 01/27/25 19:59 1 applic
BID HARLEEN Administration
Midodrine 5 mg 12/30/24 17:32
Midodrine 5 Mg Tablet PO 01/27/25 17:31
TIDPRN PRN
dizziness or sbp<100
Pantoprazole Sodium 40 mg 12/30/24 20:00 01/01/25 08:17
Pantoprazole 40 Mg Delayed Release Tablet PO 01/27/25 19:59 40 mg
BID HARLEEN Administration
Polyethylene Glycol 17 grams 12/30/24 17:32
Polyethylene Glycol Powder 17 Grams Packet PO 01/27/25 17:31
DAILYPRN PRN
constipation
Sodium Chloride 0 flush 12/30/24 18:00
Sodium Chloride 0.9% (Flush) Syringe IV 01/27/25 17:59
PER PROTOCOL HARLEEN
Tamsulosin HCl 0.8 mg 12/31/24 12:00 12/31/24 12:12
Tamsulosin 0.4 Mg Capsule PO 01/28/25 11:59 0.8 mg
NOON HARLEEN Administration
Thiamine HCl 100 mg 12/31/24 16:00 01/01/25 08:17
Thiamine 100 Mg Tablet PO 01/02/25 08:01 100 mg
DAILY HARLEEN Administration
Tramadol HCl 50 mg 12/30/24 18:00 01/01/25 05:15
Tramadol Hcl 50 Mg Tablet PO 01/27/25 17:59 50 mg
Q12H HARLEEN Administration
Home Medications
-
Home Medications
acetaminophen 325 mg tablet 650 mg PO Q6HPRN PRN mild pain 05/12/24
aspirin 81 mg tablet,delayed release 81 mg PO DAILY Blood Clot Prevention/Tx 05/12/24
atorvastatin 20 mg tablet 20 mg PO HS High Cholesterol 05/12/24
cholecalciferol (vitamin D3) 50 mcg (2,000 unit) tablet (Vitamin D3) 50 mcg PO DAILY Supplement 05/12/24
levothyroxine 75 mcg tablet 75 mcg PO DAILY Thyroid 05/12/24
tamsulosin 0.4 mg capsule 0.8 mg PO NOON Urinary Issue 05/12/24
trazodone 100 mg tablet 100 mg PO HS Sleep 05/12/24
dutasteride 0.5 mg capsule (Avodart) 0.5 mg PO Q48H Urinary Issue 08/27/24
pantoprazole 40 mg tablet,delayed release (Protonix) 40 mg PO BID GERD 09/23/24
midodrine 5 mg tablet 5 mg PO TIDPRN PRN dizziness or sbp<100 10/17/24
amlodipine 5 mg tablet 5 mg PO DAILY Blood Pressure 12/16/24
fenofibrate nanocrystallized 145 mg tablet 145 mg PO DAILY High Cholesterol 12/16/24
miconazole nitrate 2 % topical powder (Zeasorb AF) 1 applic topical BID Skin Issues 12/16/24
tramadol 50 mg tablet 50 mg PO Q12H Pain 12/16/24
polyethylene glycol 3350 17 gram oral powder packet 17 g PO DAILYPRN PRN constipation 12/30/24
[2025-01-01 07:25] VITALS: BP 103/41
[2025-01-01] MEDS: VITAMIN B1 100 MG PO (08:17)
[2025-01-01] MEDS: VITAMIN D3 (cholecalciferol) 50 MCG PO (08:17)
[2025-01-01] MEDS: PROSCAR 5 MG PO (08:17)
[2025-01-01] MEDS: PROTONIX 40 MG PO ×2 (08:17→19:44)
[2025-01-01] MEDS: ASPIR LOW (ENTERIC COATED) 81 MG PO (08:17)
[2025-01-01] MEDS: HEPARIN 5000 UNITS SC ×2 (08:17→19:43)
[2025-01-01] MEDS: DESENEX/MITRAZOL/ZEASORB 1 APPLIC TOPICAL ×2 (08:19→21:22)
[2025-01-01 08:41] LABS: % Basophils 0.3 % (0-2); % Eosinophils 0.9 % (0-6); % Immature Granulocytes 0.9 % (0-0.5); % Lymphocytes 14.1 % (20.5-51.1); % Monocytes 8.4 % (1.7-9.3); % Neutrophils 75.4 % (42.2-75.2); Absolute Eosinophils 0.1 10^3/uL (0-0.7); Absolute Immature Granulocytes 0.1 10^3/uL (0-0.05); Absolute Lymphocytes 0.9 10^3/uL (1.2-3.4); Absolute Monocytes 0.6 10^3/uL (0.1-0.6); Hematocrit 22.7 % (39.0-52.0); Hemoglobin 7.1 g/dL (13.0-18.0); Mean Corp Hgb Conc. 31.3 g/dL (33.0-37.0); Mean Corpuscular Volume 102.3 fL (80.0-94.0); Mean Platelet Volume 9.9 fL (7.4-10.4); Nucleated Red Blood Cells % 0 % (-); Platelet Count 130 10^3/uL (130-400); Red Blood Cell Count 2.22 10^6/uL (4.70-6.10); Red Cell Dist. Width 16.8 % (11.5-14.5); White Blood Cell Count 6.7 10^3/uL (4.8-10.8)
[2025-01-01 09:25] LABS: Blood Urea Nitrogen 41 mg/dl (9-20); Calcium 9.6 mg/dl (8.4-10.2); Carbon Dioxide 16 mmol/L (22-30); Chloride 116 mmol/L (98-107); Estimated Creatinine Clearance 13 ml/min; Glucose 62 mg/dl (70-99); Potassium 4.6 mmol/L (3.5-5.1); Sodium 142 mmol/L (135-145); eGFR 15.54
[2025-01-01 09:42] LABS: Albumin 2.5 g/dl (3.5-5.0)
[2025-01-01 10:48] VITALS: BP 117/46
[2025-01-01] MEDS: FLOMAX 0.8 MG PO (11:04)
[2025-01-01 14:58] VITALS: BP 105/56
--- NOTE | 2025-01-01 16:23 | CM ---
Chart reviewed and patient was recently discharged back to [facility] where patient resides, patient requires assist with adl's and ambulation, patient has a walker, w/c and motorized w/c at [facility]. Patient was set up
with [facility] visiting nurses, patient would benefit from PT/OT assessments to review plan for patient.
assistant property manager reached out to [place] at [facility] [phone] and left message to review plan for patient.
Call placed to [facility] [phone]
Plan; Await PT/OT evaluations and review with family discharge options for patient.
--- NOTE | 2025-01-01 17:45 | W.PN.HOSP.TC ---
Addendum entered and electronically signed by Ranjan Ch MD 01/01/25 22:33:
Attending Addendum-
I saw and evaluated the patient. I reviewed the resident�s note and agree with findings and plan as documented in the resident�s note. Sub: Patient has no complaints. Confused. Denies urinary sxs. Confabulating. Seen with grandson present. D/W DIL
on FT. Full 12 point ROS reviewed and negative except as documented Exam: Vitals reviewed in chart GEN-NAD heart RRR lungs clear abd soft LE no edema LUE fistula present +1 non pitting edema, Neuro AAO x 1 MS 01/01 - driscoll in place
Plan:
#Acute encephalopathy
- unclear etiology
- Patient much more altered than baseline a couple of months ago
- brain mri w/o uday 01/01- No acute intracranial abnormality noted
- DC asa
- neurology consult appreciated- check labs
#Chronic Driscoll catheter from BPH
- cont proscar/flomax
- urine cx- NG
- cont driscoll care
#CKD stage V
- s/p AVF creation 12/22
- no emergent need for dialysis at this time
- trend bmp
#Malignant Hypercalcemia-ca WNL
#H/o parathyroidectomy
#Metastatic renal cell carcinoma-Liver and bone metastases with PTHrP association- c/s heme onc for eval
#Anemia, multifactorial
- decreasing HB, in part dilutional
- previous SPEP and UPEP normal
- Likely secondary to chronic disease, secondary to CKD V
- Follow CBC
- transfuse if hgb <7
#Orthostatic hypotension
#Primary hypertension
- midodrine 5 mg as needed for SBP <100
- Hold amlodipine to avoid hypotension given AMS
#Anxiety/depression
#Hypothyroidism - cont levothyroxine
#GERD - C/w pantoprazole
#Dyslipidemia - No known ASCVD history, home medications include moderate intensity statin, aspirin
#Chronic dysphagia
#h/o GE junction stenosis s/p esophageal dilation
#h/o achalasia
DVT PPx: Heparin SC
Code Status: Full Code
Dispo eventual DC to [facility] when able. possibly hospice
ACP
Patient consented to discuss, was with family, D/W DIL on FT, time spent explanation of advance directives, changes in health status, patient�s health care wishes if the patient becomes unable to make health decisions, goals of care, code status,
and prognosis 'i think he should be on hospice, my doesn't think so' - 16 minutes
Time spent coordinating care, review of plan of care with resident, personally reviewed previous records in EMR, med rec, labs, radiology, d/w nursing, family total time documented is exclusive of any additional time listed that was spent in advance
care planning discussion -�53 minutes
Original Note:
Today's Communication/Plan
-
Check VBG, CPK, lactate levels, ammonia in the a.m.
Oncology consult in the a.m. tomorrow.
Continue current management.
Assessment / Plan
Assessment / Plan
Assessment- 84 yo M with history of stage IV RCC s/p left nephrectomy, CKD stage V (s/p AVF creation in left forearm), metastasis to bone and liver metastases who presents with acute encephalopathy 2 days after prior admission.
Spoke with carroll Thibodeaux over the phone. He last saw his father in person 11/28/2024 and reports that he was coherent, though he had lost weight. He reports that the first real instance of significant altered mental status was in November when he was last
admitted (12/16/2024). We discussed the patient's elevated PTHrP from prior visit as well as prognosis. Family is aware of incurable disease, but at this time would like life saving measure and full code. MRI findings reviewed with carroll Thibodeaux on
phone today also reviewed patient's baseline mental status with Carlos Eduardo and agree with the above documentation from Dr. Rick. Carlos Eduardo is open to having the conversation of hospice, but that was against his father's will when he had conversation
with his father while his cognitively doing well. So he wants to pursue further answers and know that hospice is the right decision before he could make that. He thinks it is safe for him and his father to be evaluated by oncology and have the
cancer prognosis discussion with oncology in the hospital before making decision to go to hospice.
Deven was following Dr. Pierre with [facility] hematology and oncology, phone number-[phone].
Acute encephalopathy
Not oriented to time person and place.
Most likely metabolic versus toxic.
No neurodegenerative cause identified on MRI of the brain.
No evidence of stroke or metastasis on MRI of the brain.
CO2 worsening, will check VBG in the a.m. tomorrow, also check CPK, and ammonia levels.
Patient is more altered compared to his previous hospital discharge.
head ct showing no acute intracranial abnormality
Patient has stage IV metastatic RCC, has not had chemotherapy in the last several months and has not had oncology follow up PET scanning since July 2024
Acute stroke excluded. Consider discontinuing aspirin.
Neurology on board, appreciate their inputs.
Irregular heart rate
ECG shows sinus rhythm, telemetry shows irregular rhythm
Repeat EKG in the a.m. tomorrow, continue monitoring on telemetry.
Asymptomatic bacteriuria,
Chronic indwelling Driscoll catheter-more than 3 months.
UA likely contaminated, squamous epithelial cells 10.
Reflex culture no growth.
More likely chronic colonization secondary to indwelling Driscoll.
ESRD-
S/p aVF fistula creation on.
Ecchymosis improving on the fistula.
Steady creatinine levels at 3.7.
No dialysis warranted at this time
Trend serum creatinine.
Malignant hypercalcemia-
Secondary to paraneoplastic PTHrP secreting syndrome.
History of parathyroidectomy
Stage IV RCC with mets to bone and liver.
Currently calcium corrected for albumin at 10.8, mild hypercalcemia.
Family requesting oncology consult to assess for prognosis.
Continue with IV fluids.
Anemia-
Macrocytic anemia
Likely a confluence of anemia of chronic disease, ESRD.
Follow CBC.
Hb down to 7.1 from 7.9
Orthostatic hypotension
With history of primary hypertension.
Home medications also included midodrine 5 mg as needed for SBP <100 or symptomatic dizziness
Hold amlodipine to avoid hypotension.
DVT PPx
Heparin SC
Code Status
Full Code
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
Anxiety/depression
Hypothyroidism - Unclear etiology, home regimen includes levothyroxine 75 mcg daily - TSH normal
GERD - C/w pantoprazole 40 mg twice daily
Dyslipidemia - No known ASCVD history, home medications include moderate intensity statin, aspirin
Chronic dysphagia
h/o GE junction stenosis s/p esophageal dilation
h/o achalasia
MRI Brain - 01/01/25 -
IMPRESSION:
No acute intracranial abnormality noted. Chronic senescent changes.
Anticipated Discharge: > 48 hours
Subjective/Interval History
-
Date of Service: January 01, 2025
Still not oriented to time, place and date. Had symptoms of yesterday in the evening.
Does not state any complaints today, reports to be feeling well.
Objective Data
-
Labs:
Laboratory Results
01/01/25
07:48
WBC 6.7
Hgb 7.1 L
Hct 22.7 L
Plt Count 130
Sodium 142
Potassium 4.6
Chloride 116 H
Carbon Dioxide 16 L
BUN 41 H
Creatinine 3.7 H
Glucose 62 L
Calcium 9.6
Vital Signs:
Vital Signs
Temp Pulse Resp BP Pulse Ox
98.7 F 85 18 105/56 98
01/01/25 14:58 01/01/25 14:58 01/01/25 14:58 01/01/25 14:58 01/01/25 14:58
I&O
12/31/24 01/01/25 01/02/25
06:59 06:59 06:59
Intake Total 1680 / 1680 720 / 720 1380 / 1380
Output Total 500 / 500 850 / 850 300 / 300
Balance 1180 / 1180 -130 / -130 1080 / 1080
Review of Systems
-
Unable to obtain full review of systems at this time due to: Dementia and Patient Non-verbal
Neuro: Reports Other (Not oriented to time person or place.)
Physical Exam
-
General: No Apparent Distress and Comfortable
HEENT: Moist Mucous Membranes
Respiratory: Clear to Auscultation and Crackles (Faint B/L lower lobe crackles.); Negative Wheezes, Rales or Rhonchi
Cardiac: Regular Rhythm and S1/S2; Negative Murmur, Rub or Gallop
GI: Soft, Nontender, Nondistended and Normal Bowel Sounds
Musculoskeletal: No Clubbing, No Cyanosis and No Edema
Neuro: No Motor Deficits and Other ( Motor strength UE 5/5 symmetric, LE 5/5 symmetric, positive past pointing (R>L)); Negative AO x 3
Psych: Calm
Data Reviewed
-
MRI: Image personally visualized and interpreted, Report Reviewed by me and Discussed with Physician
Medical Tests (Nuc Med, Echo etc): Image personally visualized and interpreted, Report Reviewed by me and Discussed with Physician
Labs: Labs Reviewed by me and Discussed with Physician
[2025-01-01 19:44] VITALS: BP 130/71
[2025-01-01] MEDS: LIPITOR 20 MG PO (21:22)
[2025-01-01 23:06] VITALS: BP 126/75
[2025-01-02] VITALS (9 sets, daily range): BP systolic 113–148; BP diastolic 55–85
[2025-01-02] MEDS: SYNTHROID 75 MCG PO (05:42)
[2025-01-02] MEDS: ULTRAM 50 MG PO ×2 (05:42→17:55)
--- NOTE | 2025-01-02 07:16 | W.PN.NEURO.1 ---
Today's Communication / Plan
-
.
Subjective/Objective
Subjective Data
Date of Service: January 02, 2025
Neurology follow-up note.
24-hour events: Normotensive, afebrile.
Hemoglobin�6.8, platelets�125., Glucose�104, normal ammonia,
EKG�normal sinus rhythm with premature atrial complexes.
Brain MRI�no acute infarcts.
PMH: stage IV L RCC, chronic L1 compression fracture, HTN, DLP, CKD, hypothyroidism, GERD, h/o achalasiavitamin D deficiency, BPH, autonomic dysfunction, chronic dysphagia
PSH: Left nephrectomy, bilateral inguinal hernia repair L septoplasty, esophageal dilation, left thyroidectomy
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
All: Sulfa's, penicillin
ROS: Negative for headache, chest pain, abdominal pain; change in vision or strength or sensation
General: Well developed. In no acute distress.
Cardio: Regular rate and rhythm without murmur. Extremities are without cyanosis or edema.
Neuro:
Mental Status: Alert, oriented to name, date of , not to age, season, month or year. Expressive and receptive aphasia. Perseverates. Follows simple requests intermittently. No hemineglect.
Cranial Nerves: Pupils are equally round and reactive to light. EOMs full. BTT BL. No ptosis. No nystagmus. Face symmetric. Impaired hearing AU. The palate elevated well. SCMs and traps 5/5. Tongue midline. No dysarthria.
Motor: Moves all limbs antigravity symmetrically purposefully.
Reflexes: Bilateral grasp
Sensory: Limited due to poor attention/ aphasia
Coordination: No tremors or myoclonic movements.
Gait: deferred
Assessment and Plan:
I. Multifactorial encephalopathy (metabolic, toxic likely neurodegenerative).
II. Stage IV RCC
III. Chronic immunosuppression
IV. Chronic L1 vertebral mets, s/p palliative radiation
-Aspiration precautions.
-Avoid WHIPPER suppressants
- Outpatient neurology follow-up
I personally reviewed all radiology and labs along with past medical records pertinent to current medical problems. Total time spent in patient care is 35 minutes.
Thank you for allowing us to participate in the care of this patient. Please do not hesitate to contact us with any questions or concerns
Objective Data
Vital Signs
Temp Pulse Resp BP Pulse Ox
36.4 C 76 16 115/71 96
01/02/25 03:00 01/02/25 03:00 01/02/25 03:00 01/02/25 03:00 01/02/25 03:00
Sodium 142 mmol/L (135-145) 01/01/25 07:48
Potassium 4.6 mmol/L (3.5-5.1) 01/01/25 07:48
BUN 41 mg/dl (9-20) H 01/01/25 07:48
Glucose 62 mg/dl (70-99) L 01/01/25 07:48
Calcium 9.6 mg/dl (8.4-10.2) 01/01/25 07:48
Vitamin B12 Cancelled 12/31/24 13:42
Patient Allergies
Penicillins Allergy (Verified 12/16/24 16:06)
Unknown- tolerates cephalosporins
Sulfa (Sulfonamide Antibiotics) Allergy (Verified 12/16/24 12:57)
Unknown
Vital Signs and Labs
-
Vital Signs and Labs:
Vital Signs
Temp Pulse Resp BP Pulse Ox
37.1 C 76 18 141/55 98
01/02/25 07:23 01/02/25 07:23 01/02/25 07:23 01/02/25 07:23 01/02/25 07:23
Sodium 142 mmol/L (135-145) 01/01/25 07:48
Potassium 4.6 mmol/L (3.5-5.1) 01/01/25 07:48
BUN 41 mg/dl (9-20) H 01/01/25 07:48
Glucose 62 mg/dl (70-99) L 01/01/25 07:48
Calcium 9.6 mg/dl (8.4-10.2) 01/01/25 07:48
Vitamin B12 Cancelled 12/31/24 13:42
Medications
-
Medications:
Generic Name Dose Route Start Last Admin
Trade Name Freq PRN Reason Stop Dose Admin
Aspirin 81 mg 12/31/24 08:00 01/01/25 08:17
Aspirin 81 Mg (Enteric Coated) Tablet PO 01/28/25 07:59 81 mg
DAILY HARLEEN Administration
Atorvastatin Calcium 20 mg 12/30/24 22:00 01/01/25 21:22
Atorvastatin (Lipitor) 20 Mg Tablet PO 01/27/25 21:59 20 mg
HS HARLEEN Administration
Cholecalciferol 50 mcg 12/31/24 08:00 01/01/25 08:17
Cholecalciferol (Vitamin D3) 50 Mcg Tablet (2,000 Units) PO 01/28/25 07:59 50 mcg
DAILY HARLEEN Administration
Finasteride 5 mg 01/01/25 08:00 01/01/25 08:17
Finasteride 5 Mg Tablet PO 01/29/25 07:59 5 mg
Q48H HARLEEN Administration
Heparin Sodium 5,000 units 12/30/24 20:00 01/01/25 19:43
Heparin 5,000 Units/Ml 1 Ml Vial SC 01/27/25 19:59 5,000 units
Q12 HARLEEN Administration
Sodium Chloride 1,000 mls @ 100 mls/hr 12/30/24 17:00 01/01/25 22:50
Nss IV 1,000 mls
.Q10H HARLEEN Administration
Levothyroxine Sodium 75 mcg 12/31/24 06:00 01/02/25 05:42
Levothyroxine 75 Mcg Tablet PO 01/28/25 05:59 75 mcg
DAILY@0600 HARLEEN Administration
Miconazole Nitrate 0 applic 12/30/24 20:00 01/01/25 21:22
Miconazole Powder Bottle TOPICAL 01/27/25 19:59 1 applic
BID HARLEEN Administration
Midodrine 5 mg 12/30/24 17:32
Midodrine 5 Mg Tablet PO 01/27/25 17:31
TIDPRN PRN
dizziness or sbp<100
Pantoprazole Sodium 40 mg 12/30/24 20:00 01/01/25 19:44
Pantoprazole 40 Mg Delayed Release Tablet PO 01/27/25 19:59 40 mg
BID HARLEEN Administration
Polyethylene Glycol 17 grams 12/30/24 17:32
Polyethylene Glycol Powder 17 Grams Packet PO 01/27/25 17:31
DAILYPRN PRN
constipation
Sodium Chloride 0 flush 12/30/24 18:00
Sodium Chloride 0.9% (Flush) Syringe IV 01/27/25 17:59
PER PROTOCOL HARLEEN
Tamsulosin HCl 0.8 mg 12/31/24 12:00 01/01/25 11:04
Tamsulosin 0.4 Mg Capsule PO 01/28/25 11:59 0.8 mg
NOON HARLEEN Administration
Thiamine HCl 100 mg 12/31/24 16:00 01/01/25 08:17
Thiamine 100 Mg Tablet PO 01/02/25 08:01 100 mg
DAILY HARLEEN Administration
Tramadol HCl 50 mg 12/30/24 18:00 01/02/25 05:42
Tramadol Hcl 50 Mg Tablet PO 01/27/25 17:59 50 mg
Q12H HARLEEN Administration
Home Medications
-
Home Medications
acetaminophen 325 mg tablet 650 mg PO Q6HPRN PRN mild pain 05/12/24
aspirin 81 mg tablet,delayed release 81 mg PO DAILY Blood Clot Prevention/Tx 05/12/24
atorvastatin 20 mg tablet 20 mg PO HS High Cholesterol 05/12/24
cholecalciferol (vitamin D3) 50 mcg (2,000 unit) tablet (Vitamin D3) 50 mcg PO DAILY Supplement 05/12/24
levothyroxine 75 mcg tablet 75 mcg PO DAILY Thyroid 05/12/24
tamsulosin 0.4 mg capsule 0.8 mg PO NOON Urinary Issue 05/12/24
trazodone 100 mg tablet 100 mg PO HS Sleep 05/12/24
dutasteride 0.5 mg capsule (Avodart) 0.5 mg PO Q48H Urinary Issue 08/27/24
pantoprazole 40 mg tablet,delayed release (Protonix) 40 mg PO BID GERD 09/23/24
midodrine 5 mg tablet 5 mg PO TIDPRN PRN dizziness or sbp<100 10/17/24
amlodipine 5 mg tablet 5 mg PO DAILY Blood Pressure 12/16/24
fenofibrate nanocrystallized 145 mg tablet 145 mg PO DAILY High Cholesterol 12/16/24
miconazole nitrate 2 % topical powder (Zeasorb AF) 1 applic topical BID Skin Issues 12/16/24
tramadol 50 mg tablet 50 mg PO Q12H Pain 12/16/24
polyethylene glycol 3350 17 gram oral powder packet 17 g PO DAILYPRN PRN constipation 12/30/24
--- NOTE | 2025-01-02 08:33 | W.PN.HOSP.TC ---
Addendum entered and electronically signed by Ranjan Ch MD 01/02/25 23:05:
Attending Addendum-
I saw and evaluated the patient. I reviewed the resident�s note and agree with findings and plan as documented in the resident�s note. Sub: feels fatigued and still confused. Denies urinary sxs. Confabulating. Full 12 point ROS reviewed and negative
except as documented- limited by confusion but able to answer questions Exam: Vitals reviewed in chart GEN-NAD heart RRR lungs clear abd soft LE no edema LUE fistula present +1 non pitting edema, Neuro AAO x 1 MS 01/01 - driscoll in place draining
clear yellow urine
Plan:
#Acute encephalopathy
- unclear etiology possibly neurodegenerative
- Patient much more altered than baseline per family
- brain mri w/o uday 01/01- No acute intracranial abnormality noted
- DC asa
- neurology consult appreciated
- [facility] labs ordered and reviewed
#Chronic Driscoll catheter from BPH
- cont proscar/flomax
- urine cx- NG
- cont driscoll care
#CKD stage V with metabolic acidosis
- cr and bicarb improving
- s/p AVF creation 12/22
- no emergent need for dialysis at this time
- trend bmp
#Malignant Hypercalcemia-ca WNL
#H/o parathyroidectomy
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
#Acute on Chronic Anemia
- decreasing HB, in part dilutional
- previous SPEP and UPEP normal
- Likely secondary to chronic disease, chemo, malignancy and CKD V
- Follow CBC
- transfuse 1 unit PRBC 01/02
#Orthostatic hypotension
#Primary hypertension
- midodrine 5 mg as needed for SBP <100
- Hold amlodipine to avoid hypotension given AMS
#Anxiety/depression
#Hypothyroidism - cont levothyroxine
#GERD - C/w pantoprazole
#Dyslipidemia - No known ASCVD history, home medications include moderate intensity statin, aspirin
#Chronic dysphagia
#h/o GE junction stenosis s/p esophageal dilation
#h/o achalasia
DVT PPx: Heparin SC
Code Status: Full Code
Dispo eventual DC to [facility] when able
Time spent coordinating care, review of plan of care with resident, personally reviewed records in EMR, med rec, consults, notes, labs, radiology, d/w nursing � 51 mins
Original Note:
Today's Communication/Plan
-
1 unit of blood transfusion.
Monitor vitals closely.
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
Assessment / Plan
Assessment / Plan
Assessment- 84 yo M with history of stage IV RCC s/p left nephrectomy, CKD stage V (s/p AVF creation in left forearm), metastasis to bone and liver metastases who presents with acute encephalopathy 2 days after prior admission.
Spoke with carroll Thibodeaux over the phone. He last saw his father in person 11/28/2024 and reports that he was coherent, though he had lost weight. He reports that the first real instance of significant altered mental status was in November when he was last
admitted (12/16/2024). We discussed the patient's elevated PTHrP from prior visit as well as prognosis. Family is aware of incurable disease, but at this time would like life saving measure and full code. MRI findings reviewed with carroll Thibodeaux on
phone today also reviewed patient's baseline mental status with Carlos Eduardo and agree with the above documentation from Dr. Rick. Carlos Eduardo is open to having the conversation of hospice, but that was against his father's will when he had conversation
with his father while his cognitively doing well. So he wants to pursue further answers and know that hospice is the right decision before he could make that. He thinks it is safe for him and his father to be evaluated by oncology and have the
cancer prognosis discussion with oncology in the hospital before making decision to go to hospice.
Deven was following Dr. Pierre with [facility] hematology and oncology, phone number-[phone].
Acute encephalopathy
Not oriented to time person and place.
Most likely metabolic versus toxic.
No neurodegenerative cause identified on MRI of the brain.
No evidence of stroke or metastasis on MRI of the brain.
CPK and ammonia levels within normal limits, VBG shows chronic non-anion gap metabolic acidosis with respiratory alkalosis compensation.
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
Oncology also spoke to Dr. gao from [facility] hematology and oncology, willing to take over patient's care.
Appreciate oncology inputs.
Patient is more altered compared to his previous hospital discharge.
head ct showing no acute intracranial abnormality
Patient has stage IV metastatic RCC, has not had chemotherapy in the last several months and has not had oncology follow up PET scanning since July 2024
Acute stroke excluded. Consider discontinuing aspirin.
Neurology on board, appreciate their inputs.
Anemia-
Macrocytic anemia
Likely a confluence of anemia of chronic disease, ESRD.
Follow CBC.
Hb down to 6.8 from 7.1
1 unit of blood transfusion. verbal consent obtained from the patient's son on phone.
Will update the patient's family again.
Irregular heart rate -resolved
EKG in the am shows NSR with PACs.
Discontinue telemety.
Asymptomatic bacteriuria,
Chronic indwelling Driscoll catheter-more than 3 months.
UA likely contaminated, squamous epithelial cells 10.
Reflex culture no growth.
More likely chronic colonization secondary to indwelling Driscoll.
ESRD-
S/p aVF fistula creation on.
Ecchymosis improving on the fistula.
Steady creatinine levels at 3.7.
No dialysis warranted at this time
Trend serum creatinine.
Malignant hypercalcemia-
Secondary to paraneoplastic PTHrP secreting syndrome.
History of parathyroidectomy
Stage IV RCC with mets to bone and liver.
Currently calcium corrected for albumin at 10.8, mild hypercalcemia.
Family requesting oncology consult to assess for prognosis.
Continue with IV fluids.
Orthostatic hypotension
With history of primary hypertension.
Home medications also included midodrine 5 mg as needed for SBP <100 or symptomatic dizziness
Hold amlodipine to avoid hypotension.
DVT PPx
Heparin SC
Code Status
Full Code
Conditions [employer]GER -
Anxiety/depression
Hypothyroidism - Unclear etiology, home regimen includes levothyroxine 75 mcg daily - TSH normal
GERD - C/w pantoprazole 40 mg twice daily
Dyslipidemia - No known ASCVD history, home medications include moderate intensity statin, aspirin
Chronic dysphagia
h/o GE junction stenosis s/p esophageal dilation
h/o achalasia
MRI Brain - 01/01/25 -
IMPRESSION:
No acute intracranial abnormality noted. Chronic senescent changes.
Anticipated Discharge: > 48 hours
Subjective/Interval History
-
Date of Service: January 02, 2025
Did not report any complaints today, still not oriented to place and time.
Wants to rest.
Objective Data
-
Labs:
Laboratory Results
01/02/25
06:00
WBC Pending
Hgb Pending
Hct Pending
Plt Count Pending
Sodium Pending
Potassium Pending
Chloride Pending
Carbon Dioxide Pending
BUN Pending
Creatinine Pending
Glucose Pending
Calcium Pending
Total Bilirubin Pending
AST Pending
ALT Pending
Alkaline Phosphatase Pending
Vital Signs:
Vital Signs
Temp Pulse Resp BP Pulse Ox
98.7 F 76 18 141/55 98
01/02/25 07:23 01/02/25 07:23 01/02/25 07:23 01/02/25 07:23 01/02/25 07:23
I&O
01/01/25 01/02/25 01/03/25
06:59 06:59 06:59
Intake Total 720 / 720 2580 / 2580
Output Total 850 / 850 1000 / 1000
Balance -130 / -130 1580 / 1580
Review of Systems
-
Unable to obtain full review of systems at this time due to: Other (Altered mental status.)
History Source: Patient
Constitutional: Reports No Symptoms
Respiratory: Reports No Symptoms
Cardiac: Reports No Symptoms
Abdomen/GI: Reports No Symptoms
Genitourinary: Reports No Symptoms
Musculoskeletal: Reports No Symptoms
Skin: Reports No Symptoms
Neuro: Reports No Symptoms
Hematologic / Lymphatic: Reports No Symptoms
Allergy / Immunology: Reports No Symptoms
Physical Exam
-
General: No Apparent Distress, Comfortable and Other (Pale appearing)
HEENT: Moist Mucous Membranes
Respiratory: Clear to Auscultation; Negative Wheezes, Rales, Rhonchi or Crackles
Cardiac: Regular Rhythm and S1/S2; Negative Murmur, Rub or Gallop
GI: Soft, Nontender, Nondistended and Normal Bowel Sounds
Musculoskeletal: No Clubbing, No Cyanosis, No Edema and Other (Left av fistula hematoma resolving.)
Skin: Warm
Neuro: AO x 3 and No Motor Deficits
Psych: Calm
Data Reviewed
-
MRI: Image personally visualized and interpreted, Report Reviewed by me and Discussed with Physician
Labs: Labs Reviewed by me, Discussed with Physician and Discussed with Nurse
[2025-01-02] MEDS: PROTONIX 40 MG PO ×2 (08:46→21:33)
[2025-01-02] MEDS: NSS 1000 IV ×2 (08:47→21:40)
[2025-01-02] MEDS: VITAMIN D3 (cholecalciferol) 50 MCG PO (08:48)
[2025-01-02] MEDS: VITAMIN B1 100 MG PO (08:48)
[2025-01-02] MEDS: ASPIR LOW (ENTERIC COATED) 81 MG PO (08:48)
[2025-01-02] MEDS: MIRALAX 17 GRAMS PO (08:49)
[2025-01-02] MEDS: DESENEX/MITRAZOL/ZEASORB 1 APPLIC TOPICAL ×2 (08:50→21:35)
[2025-01-02] MEDS: HEPARIN 5000 UNITS SC ×2 (08:51→21:33)
[2025-01-02 08:58] LABS: Venous Blood Gas B.E. -8.8 mmol/L (-4 to +4); Venous Blood Gas HCO3 16.6 mmol/L (22-27); Venous Blood Gas O2 Sat % 99.7 %; Venous Blood Gas pCO2 33 mmHg (35-48); Venous Blood Gas pH 7.31 (7.32-7.43); Venous Blood Gas pO2 154 mmHg (30-50)
[2025-01-02 09:12] LABS: Ammonia 13 umol/L (9-30); Lactic Acid 0.9 mmol/L (0.7-2.0)
[2025-01-02 09:29] LABS: ALT (SGPT) 15 U/L (0-50); AST (SGOT) 51 U/L (17-59); Albumin 2.5 g/dl (3.5-5.0); Alkaline Phosphatase 54 U/L (38-126); Blood Urea Nitrogen 40 mg/dl (9-20); Carbon Dioxide 19 mmol/L (22-30); Chloride 117 mmol/L (98-107); Creatine Phosphokinase 62 U/L (55-170); Estimated Creatinine Clearance 15 ml/min; Glucose 104 mg/dl (70-99); Potassium 4.4 mmol/L (3.5-5.1); Sodium 143 mmol/L (135-145); Total Bilirubin 0.8 mg/dl (0.2-1.3); Total Protein 4.8 g/dl (6.3-8.2); eGFR 17.82
[2025-01-02 09:46] LABS: Hematocrit 21.7 % (39.0-52.0); Hemoglobin 6.8 g/dL (13.0-18.0); Mean Corp Hgb Conc. 31.3 g/dL (33.0-37.0); Mean Corpuscular Hgb 32.1 pg (27.0-31.0); Mean Corpuscular Volume 102.4 fL (80.0-94.0); Mean Platelet Volume 9.6 fL (7.4-10.4); Platelet Count 125 10^3/uL (130-400); Red Blood Cell Count 2.12 10^6/uL (4.70-6.10); Red Cell Dist. Width 17.1 % (11.5-14.5); White Blood Cell Count 4.8 10^3/uL (4.8-10.8)
[2025-01-02] MEDS: FLOMAX 0.8 MG PO (11:20)
--- NOTE | 2025-01-02 11:50 | CON.ONC ---
Impression
Impression
Acute delirium, improving
Renal cancer metastatic to bone
Variable hypercalcemia
ESRD
Plan
Plan
He seems to be improving on no specific therapy. Will defer to other services regarding etiology of his delirium. Unenhanced MRI of the brain was unremarkable. His overall condition remains precarious in terms of his receiving any further therapy
at [facility]. I have little else to add at this time.
Patient History
History of Present Illness
Consult from hospitalist service regarding renal cancer
This 84-year-old man was admitted because of acute delirium. He had just been discharged following admission for initiation of hemodialysis. My sense is that this was felt to be due to immunotherapy for his renal cancer. He has been living in
assisted living. He is conversing better now than he was yesterday according to notes, but still is somewhat confused. He states he is unable to walk. He apparently has not received treatment at [facility] now for the past 3
months, although he tells me that he was there 1 week ago. MRI of the brain without contrast was unremarkable. None of his laboratory parameters suggest an etiology either.
Patient Medication
�Medication �Instructions �Recorded �Confirmed �Last Taken �Type
acetaminophen 325 mg tablet 650 mg PO Q6HPRN PRN mild pain 05/12/24 12/30/24 Unknown History
aspirin 81 mg tablet,delayed 81 mg PO DAILY Blood Clot 05/12/24 12/30/24 10/17/24 History
release Prevention/Tx
atorvastatin 20 mg tablet 20 mg PO HS High Cholesterol 05/12/24 12/30/24 10/16/24 History
cholecalciferol (vitamin D3) 50 50 mcg PO DAILY Supplement 05/12/24 12/30/24 10/17/24 History
mcg (2,000 unit) tablet (Vitamin
D3)
levothyroxine 75 mcg tablet 75 mcg PO DAILY Thyroid 05/12/24 12/30/24 10/17/24 History
tamsulosin 0.4 mg capsule 0.8 mg PO NOON Urinary Issue 05/12/24 12/30/24 10/16/24 History
trazodone 100 mg tablet 100 mg PO HS Sleep 05/12/24 12/30/24 10/16/24 History
dutasteride 0.5 mg capsule 0.5 mg PO Q48H Urinary Issue 08/27/24 12/30/24 10/17/24 History
(Avodart)
pantoprazole 40 mg tablet,delayed 40 mg PO BID GERD 09/23/24 12/30/24 10/17/24 History
release (Protonix)
midodrine 5 mg tablet 5 mg PO TIDPRN PRN dizziness or 10/17/24 12/30/24 Unknown History
sbp<100
amlodipine 5 mg tablet 5 mg PO DAILY Blood Pressure 12/16/24 12/30/24 Unknown History
fenofibrate nanocrystallized 145 145 mg PO DAILY High Cholesterol 12/16/24 12/30/24 Unknown History
mg tablet
miconazole nitrate 2 % topical 1 applic topical BID Skin Issues 12/16/24 12/30/24 Unknown History
powder (Zeasorb AF)
tramadol 50 mg tablet 50 mg PO Q12H Pain 12/16/24 12/30/24 Unknown History
polyethylene glycol 3350 17 gram 17 g PO DAILYPRN PRN constipation 12/30/24 12/30/24 Unknown History
oral powder packet
Active Medications
Generic Name Dose Route Start Last Admin
Trade Name Freq PRN Reason Stop Dose Admin
Aspirin 81 mg 12/31/24 08:00 01/02/25 08:48
Aspirin 81 Mg (Enteric Coated) Tablet PO 01/28/25 07:59 81 mg
DAILY HARLEEN Administration
Atorvastatin Calcium 20 mg 12/30/24 22:00 01/01/25 21:22
Atorvastatin (Lipitor) 20 Mg Tablet PO 01/27/25 21:59 20 mg
HS HARLEEN Administration
Cholecalciferol 50 mcg 12/31/24 08:00 01/02/25 08:48
Cholecalciferol (Vitamin D3) 50 Mcg Tablet (2,000 Units) PO 01/28/25 07:59 50 mcg
DAILY HARLEEN Administration
Finasteride 5 mg 01/01/25 08:00 01/01/25 08:17
Finasteride 5 Mg Tablet PO 01/29/25 07:59 5 mg
Q48H HARLEEN Administration
Heparin Sodium 5,000 units 12/30/24 20:00 01/02/25 08:51
Heparin 5,000 Units/Ml 1 Ml Vial SC 01/27/25 19:59 5,000 units
Q12 HARLEEN Administration
Sodium Chloride 1,000 mls @ 100 mls/hr 12/30/24 17:00 01/02/25 08:47
Nss IV 1,000 mls
.Q10H HARLEEN Administration
Levothyroxine Sodium 75 mcg 12/31/24 06:00 01/02/25 05:42
Levothyroxine 75 Mcg Tablet PO 01/28/25 05:59 75 mcg
DAILY@0600 HARLEEN Administration
Miconazole Nitrate 0 applic 12/30/24 20:00 01/02/25 08:50
Miconazole Powder Bottle TOPICAL 01/27/25 19:59 1 applic
BID HARLEEN Administration
Midodrine 5 mg 12/30/24 17:32
Midodrine 5 Mg Tablet PO 01/27/25 17:31
TIDPRN PRN
dizziness or sbp<100
Pantoprazole Sodium 40 mg 12/30/24 20:00 01/02/25 08:46
Pantoprazole 40 Mg Delayed Release Tablet PO 01/27/25 19:59 40 mg
BID HARLEEN Administration
Polyethylene Glycol 17 grams 12/30/24 17:32 01/02/25 08:49
Polyethylene Glycol Powder 17 Grams Packet PO 01/27/25 17:31 17 grams
DAILYPRN PRN Administration
constipation
Sodium Chloride 0 flush 12/30/24 18:00
Sodium Chloride 0.9% (Flush) Syringe IV 01/27/25 17:59
PER PROTOCOL HARLEEN
Tamsulosin HCl 0.8 mg 12/31/24 12:00 01/02/25 11:20
Tamsulosin 0.4 Mg Capsule PO 01/28/25 11:59 0.8 mg
NOON HARLEEN Administration
Tramadol HCl 50 mg 12/30/24 18:00 01/02/25 05:42
Tramadol Hcl 50 Mg Tablet PO 01/27/25 17:59 50 mg
Q12H HARLEEN Administration
Physical Exam
-
Physical examination shows the patient to be in no acute distress.
HEENT exam is unremarkable.
There are no palpable nodes.
Chest is clear.
The heart is regular with no murmur or gallop.
The abdomen is soft and nontender with no organomegaly or masses.
Extremities are unremarkable.
Neurologic is grossly intact.
Labs
Lab Results
WBC 4.8 10^3/uL (4.8-10.8) 01/02/25 08:49
RBC 2.12 10^6/uL (4.70-6.10) L 01/02/25 08:49
Hgb 6.8 g/dL (13.0-18.0) L* 01/02/25 08:49
Hct 21.7 % (39.0-52.0) L 01/02/25 08:49
MCV 102.4 fL (80.0-94.0) H 01/02/25 08:49
MCH 32.1 pg (27.0-31.0) H 01/02/25 08:49
MCHC 31.3 g/dL (33.0-37.0) L 01/02/25 08:49
RDW 17.1 % (11.5-14.5) H 01/02/25 08:49
Plt Count 125 10^3/uL (130-400) L 01/02/25 08:49
MPV 9.6 fL (7.4-10.4) 01/02/25 08:49
Abs Immat Gran (auto) 0.1 10^3/uL (0-0.05) H 01/01/25 07:48
Absolute Neuts (auto) 5.0 10^3/uL (1.4-6.5) 01/01/25 07:48
Absolute Lymphs (auto) 0.9 10^3/uL (1.2-3.4) L 01/01/25 07:48
Absolute Monos (auto) 0.6 10^3/uL (0.1-0.6) 01/01/25 07:48
Absolute Eos (auto) 0.1 10^3/uL (0-0.7) 01/01/25 07:48
Absolute Basos (auto) 0.0 10^3/uL (0-0.2) 01/01/25 07:48
Immature Gran % 0.9 % (0-0.5) H 01/01/25 07:48
Neutrophils % 75.4 % (42.2-75.2) H 01/01/25 07:48
Lymphocytes % 14.1 % (20.5-51.1) L 01/01/25 07:48
Monocytes % 8.4 % (1.7-9.3) 01/01/25 07:48
Eosinophils % 0.9 % (0-6) 01/01/25 07:48
Basophils % 0.3 % (0-2) 01/01/25 07:48
Creatinine 3.3 mg/dL (0.7-1.3) H 01/02/25 08:49
Vital Signs
Vital Signs
Temp Pulse Resp BP Pulse Ox
98.7 F 76 18 141/55 98
01/02/25 07:23 01/02/25 07:23 01/02/25 07:23 01/02/25 07:23 01/02/25 07:23
[2025-01-02] MEDS: LIPITOR 20 MG PO (21:33)
[2025-01-03] MEDS: NSS IV (01:23)
[2025-01-03 03:14] VITALS: BP 110/53
[2025-01-03] MEDS: SYNTHROID 75 MCG PO (05:50)
[2025-01-03 07:00] VITALS: BP 118/71
--- NOTE | 2025-01-03 07:24 | W.PN.ONC2 ---
Addendum entered and electronically signed by Naldo Ware MD 01/03/25 07:49:
Spoke with resident. This is his 4th admission to with failure to thrive and /\\ in [place].
Family lives in [place].
Patient poor candidate to resume antineoplastic therapy and would be appropriate for hospice.
Continuing to readmit is likely futile. He should likely be transferred to SNF for hospice.
Original Note:
Today's Communication / Plan
-
F/U at [facility] with Dr. Valerio Hunter MD Heme Onc.
Will follow intermittently.
Impression
Impression
Acute delirium, improving
Renal cancer metastatic to bone
Variable hypercalcemia
ESRD
Plan
Plan
He seems to be improving on no specific therapy. Will defer to other services regarding etiology of his delirium. Unenhanced MRI of the brain was unremarkable. His overall condition remains precarious in terms of his receiving any further therapy
at [facility]. I have little else to add at this time.
Subjective/Objective
Chief Complaint
ACS Oncology
Subjective
Confused a bit. Asked me where he is. No other complaints.
Vital Signs:
Vital Signs
Temp Pulse Resp BP Pulse Ox
98.5 F 85 14 110/53 98
01/03/25 03:14 01/03/25 03:14 01/03/25 03:14 01/03/25 03:14 01/03/25 03:14
Lab Results:
Laboratory Data
WBC 4.8 10^3/uL (4.8-10.8) 01/02/25 08:49
Hgb 6.8 g/dL (13.0-18.0) L* 01/02/25 08:49
Plt Count 125 10^3/uL (130-400) L 01/02/25 08:49
eGFR 17.82 01/02/25 08:49
Physical Exam
Cardiology: S1 and S2
Pulmonary: Clear
[2025-01-03] MEDS: DESENEX/MITRAZOL/ZEASORB 1 APPLIC TOPICAL ×2 (08:00→19:42)
[2025-01-03] MEDS: ASPIR LOW (ENTERIC COATED) 81 MG PO (08:04)
[2025-01-03] MEDS: PROSCAR 5 MG PO (08:04)
[2025-01-03] MEDS: VITAMIN D3 (cholecalciferol) 50 MCG PO (08:04)
[2025-01-03] MEDS: FLOMAX 0.8 MG PO (08:04)
[2025-01-03] MEDS: PROTONIX 40 MG PO ×2 (08:04→19:43)
[2025-01-03] MEDS: HEPARIN 5000 UNITS SC ×2 (08:05→19:42)
[2025-01-03] MEDS: NSS 1000 IV (08:12)
[2025-01-03 09:03] LABS: Hematocrit 25.9 % (39.0-52.0); Hemoglobin 8.3 g/dL (13.0-18.0); Mean Corpuscular Hgb 31.6 pg (27.0-31.0); Mean Corpuscular Volume 98.5 fL (80.0-94.0); Mean Platelet Volume 9.7 fL (7.4-10.4); Platelet Count 126 10^3/uL (130-400); Red Blood Cell Count 2.63 10^6/uL (4.70-6.10); Red Cell Dist. Width 18.7 % (11.5-14.5); White Blood Cell Count 4.6 10^3/uL (4.8-10.8)
[2025-01-03 09:26] LABS: ALT (SGPT) 15 U/L (0-50); AST (SGOT) 52 U/L (17-59); Albumin 2.4 g/dl (3.5-5.0); Alkaline Phosphatase 56 U/L (38-126); Blood Urea Nitrogen 40 mg/dl (9-20); Calcium 9.9 mg/dl (8.4-10.2); Carbon Dioxide 16 mmol/L (22-30); Chloride 119 mmol/L (98-107); Estimated Creatinine Clearance 15 ml/min; Glucose 79 mg/dl (70-99); Potassium 4.5 mmol/L (3.5-5.1); Sodium 142 mmol/L (135-145); Total Bilirubin 1.1 mg/dl (0.2-1.3); Total Protein 4.8 g/dl (6.3-8.2); eGFR 18.49
--- NOTE | 2025-01-03 09:50 | W.PN.HOSP.TC ---
Addendum entered and electronically signed by Ranjan Ch MD 01/03/25 21:51:
Attending Addendum-
I saw and evaluated the patient. I reviewed the resident�s note and agree with findings and plan as documented in the resident�s note. Sub: feels confused. 'I dont know where i am' Denies urinary sxs. Full 12 point ROS reviewed and negative except
as documented- limited by confusion but able to answer sxs questions Exam: Vitals reviewed in chart GEN-NAD heart RRR lungs clear abd soft LE no edema LUE fistula present +1 non pitting edema bruising present , Neuro AAO x 1 MS 01/01 - driscoll in
place draining clear yellow urine
Plan:
#Acute encephalopathy
- unclear etiology possibly neurodegenerative
- Patient much more altered than baseline per family
- brain mri w/o uday 01/01- No acute intracranial abnormality noted
- DC asa
- neurology consult appreciated
- CIMS labs ordered and reviewed
- overall poor prognosis
# LUE edema with bruising
- fistula in palce
- check LUE US
#Chronic Driscoll catheter from BPH
- cont proscar/flomax
- urine cx- NG
- cont driscoll care
#CKD stage V with metabolic acidosis
- cr improved and and bicarb worsening
- s/p AVF creation 12/22
- no emergent need for dialysis at this time
- trend bmp
#Malignant Hypercalcemia-ca WNL CTM
#H/o parathyroidectomy
#Metastatic renal cell carcinoma-Liver and bone metastases with PTHrP association- c/s heme onc appreciated- will reach out to primary onc for further prognosis and GOC discussions- hospice appropriate
#Acute on Chronic Anemia
- previous SPEP and UPEP normal
- Likely secondary to chronic disease, chemo, malignancy and CKD V
- transfused 1 unit PRBC 01/02
- repeat CBC in am
#Orthostatic hypotension
#Primary hypertension
- midodrine 5 mg as needed for SBP <100
- Hold amlodipine to avoid hypotension given AMS
#Anxiety/depression
#Hypothyroidism - cont levothyroxine
#GERD - C/w pantoprazole
#Dyslipidemia - No known ASCVD history, home medications include moderate intensity statin, aspirin
#Chronic dysphagia
#h/o GE junction stenosis s/p esophageal dilation
#h/o achalasia
DVT PPx: Heparin SC
Code Status: Full Code
Dispo eventual DC to [facility] when able
Time spent coordinating care, review of plan of care with resident, personally reviewed records in EMR, med rec, consults, notes, labs, radiology, d/w nursing � 53 mins
Original Note:
Today's Communication/Plan
-
Patient otherwise medically stable.
Await PT and OT recommendations for discharge.
Follow-up on outpatient with Dr. Gao recommended.
Follow-up with neurology outpatient recommended.
Continue hospice discussions with family, monitor for appetite and increase in bowel movements.
Assessment / Plan
Assessment / Plan
Assessment- 84 yo M with history of stage IV RCC s/p left nephrectomy, CKD stage V (s/p AVF creation in left forearm), metastasis to bone and liver metastases who presents with acute encephalopathy 2 days after prior admission.
Spoke with carroll Thibodeaux over the phone. He last saw his father in person 11/28/2024 and reports that he was coherent, though he had lost weight. He reports that the first real instance of significant altered mental status was in November when he was last
admitted (12/16/2024). We discussed the patient's elevated PTHrP from prior visit as well as prognosis. Family is aware of incurable disease, but at this time would like life saving measure and full code. MRI findings reviewed with carroll Thibodeaux on
phone today also reviewed patient's baseline mental status with Carlos Eduardo and agree with the above documentation from Dr. Rick. Carlos Eduardo is open to having the conversation of hospice, but that was against his father's will when he had conversation
with his father while his cognitively doing well. So he wants to pursue further answers and know that hospice is the right decision before he could make that. He thinks it is safe for him and his father to be evaluated by oncology and have the
cancer prognosis discussion with oncology in the hospital before making decision to go to hospice.
Deven was following Dr. Gao with [facility] hematology and oncology, phone number-[phone].
Spoke to oncology care team at [facility], and with Dr. Gao at [facility].
Although they are not predicament to make comment on oncological diagnosis related prognosis (due to lack of investigative workup,) both oncology groups think his medical comorbidities will make him less likely a candidate for immunotherapy going
forward. Will update the patient on phone. Will add an addendum after speaking to Carlos Eduardo his son in [place] on this note.
Acute encephalopathy
Not oriented to time person and place.
Most likely metabolic versus toxic. No evidence for metabolic encephalopathy as well
No neurodegenerative cause identified on MRI of the brain.
No evidence of stroke or metastasis on MRI of the brain.
CPK and ammonia levels within normal limits, VBG shows chronic non-anion gap metabolic acidosis with respiratory alkalosis compensation.
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
Oncology also spoke to Dr. gao from [facility] hematology and oncology, willing to take over patient's care.
Appreciate oncology inputs.
Patient is more altered compared to his previous hospital discharge.
head ct showing no acute intracranial abnormality
Patient has stage IV metastatic RCC, has not had chemotherapy in the last several months and has not had oncology follow up PET scanning since July 2024
Acute stroke excluded. Consider discontinuing aspirin.
Neurology signed off, recommended outpatient follow-up.
Oncology signed off,-oncology recommended (poor candidate to resume antineoplastic therapy, likelihood of continuation for readmission is high and futile. Oncology recommends hospice).
Anemia-
Macrocytic anemia
Likely a confluence of anemia of chronic disease, ESRD.
Follow CBC.
Hb down to 6.8 from 7.1
1 unit of blood transfusion. verbal consent obtained from the patient's son on phone.
Will update the patient's family again.
Irregular heart rate -resolved
EKG in the am shows NSR with PACs.
Discontinue telemety.
Asymptomatic bacteriuria,
Chronic indwelling Driscoll catheter-more than 3 months.
UA likely contaminated, squamous epithelial cells 10.
Reflex culture no growth.
More likely chronic colonization secondary to indwelling Driscoll.
ESRD-
S/p aVF fistula creation .
Ecchymosis improving on the fistula.
Steady creatinine levels at 3.7.
No dialysis warranted at this time
Trend serum creatinine.
Malignant hypercalcemia-
Secondary to paraneoplastic PTHrP secreting syndrome.
History of parathyroidectomy
Stage IV RCC with mets to bone and liver.
Currently calcium corrected for albumin at 10.8, mild hypercalcemia.
Family requesting oncology consult to assess for prognosis.
Continue with IV fluids.
Orthostatic hypotension
With history of primary hypertension.
Home medications also included midodrine 5 mg as needed for SBP <100 or symptomatic dizziness
Hold amlodipine to avoid hypotension.
DVT PPx
Heparin SC
Code Status
Full Code
Conditions FLAT LOCKER -
Anxiety/depression
Hypothyroidism - Unclear etiology, home regimen includes levothyroxine 75 mcg daily - TSH normal
GERD - C/w pantoprazole 40 mg twice daily
Dyslipidemia - No known ASCVD history, home medications include moderate intensity statin, aspirin
Chronic dysphagia
h/o GE junction stenosis s/p esophageal dilation
h/o achalasia
MRI Brain - 01/01/25 -
IMPRESSION:
No acute intracranial abnormality noted. Chronic senescent changes.
Anticipated Discharge: 24 - 48 hours
Subjective/Interval History
-
Date of Service: January 03, 2025
Patient has no complaints today. Still continues to remain oriented to his himself but not to the surrounding environment and people, time, or place.
Objective Data
-
Labs:
Laboratory Results
01/03/25
07:50
WBC 4.6 L
Hgb 8.3 L D
Hct 25.9 L
Plt Count 126 L
Sodium 142
Potassium 4.5
Chloride 119 H
Carbon Dioxide 16 L
BUN 40 H
Creatinine 3.2 H
Glucose 79
Calcium 9.9
Total Bilirubin 1.1
AST 52
ALT 15
Alkaline Phosphatase 56
Vital Signs:
Vital Signs
Temp Pulse Resp BP Pulse Ox
97.6 F 81 18 118/71 98
01/03/25 07:00 01/03/25 07:00 01/03/25 07:00 01/03/25 07:00 01/03/25 07:00
I&O
01/02/25 01/03/25 01/04/25
06:59 06:59 06:59
Intake Total 2580 / 2580 610 / 610
Output Total 1000 / 1000 1000 / 1000
Balance 1580 / 1580 -390 / -390
Review of Systems
-
Unable to obtain full review of systems at this time due to: Dementia
History Source: Patient
All other systems: Reviewed and negative
Physical Exam
-
General: No Apparent Distress and Comfortable
HEENT: Moist Mucous Membranes
Respiratory: Clear to Auscultation and Crackles (Faint bilateral lower lobe crackles.); Negative Wheezes, Rales or Rhonchi
Cardiac: Regular Rhythm and S1/S2; Negative Murmur, Rub or Gallop
GI: Soft, Nontender, Nondistended and Normal Bowel Sounds
Genito-urinary: No Costovertebral Tender
Musculoskeletal: No Clubbing, No Cyanosis and No Edema
Skin: Warm
Neuro: No Motor Deficits, No Sensory Deficits and Other (Difficulty following commands.); Negative AO x 3
Psych: Calm
Data Reviewed
-
Labs: Labs Reviewed by me, Discussed with Physician and Discussed with Nurse
[2025-01-03 10:19] VITALS: BP 120/58
[2025-01-03 10:26] VITALS: BP 120/58; PULSE 80; O2SAT 100
[2025-01-03 15:00] VITALS: BP 147/81
[2025-01-03] MEDS: ULTRAM 50 MG PO (15:10)
--- NOTE | 2025-01-03 16:43 | CM ---
Chart reviewed and physical therapy are recommending skilled, patient was admitted from [facility] care and if patient returning to them patient will need to be on hospice, [facility] have reached out to patient's family, family waiting on final
decision from oncology.
Plan; To follow with progress.
[2025-01-03] MEDS: LIPITOR 20 MG PO (21:44)
[2025-01-03 23:12] VITALS: BP 143/68
[2025-01-04] MEDS: SYNTHROID 75 MCG PO (06:18)
[2025-01-04 07:30] VITALS: BP 130/99
[2025-01-04] MEDS: ASPIR LOW (ENTERIC COATED) 81 MG PO (08:15)
[2025-01-04] MEDS: HEPARIN 5000 UNITS SC ×2 (08:15→20:44)
[2025-01-04] MEDS: PROTONIX 40 MG PO ×2 (08:15→20:46)
[2025-01-04] MEDS: VITAMIN D3 (cholecalciferol) 50 MCG PO (08:15)
[2025-01-04] MEDS: DESENEX/MITRAZOL/ZEASORB 1 APPLIC TOPICAL ×2 (08:16→20:47)
--- NOTE | 2025-01-04 08:19 | W.PN.HOSP.TC ---
Addendum entered and electronically signed by Ranjan Ch MD 01/04/25 21:33:
Attending Addendum-
I saw and evaluated the patient. I reviewed the resident�s note and agree with findings and plan as documented in the resident�s note. Sub: 'yeah i know where i am' patient not oriented. Denies urinary sxs. 'i want everything done' Full 10 point
ROS reviewed and negative except as documented- limited by confusion but able to answer sxs questions Exam: Vitals reviewed in chart GEN-NAD heart RRR lungs clear abd soft LE no edema LUE fistula present +1 non pitting edema bruising present , Neuro
AAO x 1 MS 01/01 - driscoll in place draining clear yellow urine
Plan:
#Acute encephalopathy
- unclear etiology
- Patient much more altered than baseline per family-unclear baseline
- brain mri w/o uday 01/01- No acute intracranial abnormality noted
- DC asa
- neurology consult appreciated
- overall poor prognosis
# LUE edema with bruising
- fistula in place
- LUE US - small hematoma around fistula
#Chronic Driscoll catheter from BPH
- cont proscar/flomax
- urine cx- NG
- cont driscoll care
#CKD stage V with metabolic acidosis
- cr likely @ new baseline 3.2
- s/p AVF creation 12/22
- no emergent need for dialysis at this time
- trend bmp
#Malignant Hypercalcemia-ca WNL CTM
#H/o parathyroidectomy
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
#Anemia of chronic disease
- stable
- SPEP and UPEP WNL
- transfused 1 unit PRBC 01/02
- repeat CBC in am
#Orthostatic hypotension
#Primary hypertension
- midodrine 5 mg as needed for SBP <100
- Hold amlodipine to avoid hypotension given AMS
#Anxiety/depression
#Hypothyroidism - cont levothyroxine
#GERD - C/w pantoprazole
#Dyslipidemia - No known ASCVD history, home medications include moderate intensity statin, aspirin
#Chronic dysphagia
#h/o GE junction stenosis s/p esophageal dilation
#h/o achalasia
DVT PPx: Heparin SC
Code Status: Full Code
Dispo- DC to SNF in am not back to [facility]. patient and son want to pursue full court press
Time spent coordinating care, review of plan of care with resident, personally reviewed records in EMR, med rec, consults, notes, labs, radiology, d/w nursing � 52 mins
Original Note:
Today's Communication/Plan
-
Patient is medically stable, continue current management
Assessment / Plan
Assessment / Plan
Assessment- 84 yo M with history of stage IV RCC s/p left nephrectomy, CKD stage V (s/p AVF creation in left forearm), metastasis to bone and liver metastases who presents with acute encephalopathy 2 days after prior admission.
Spoke with carroll Thibodeaux over the phone. He last saw his father in person 11/28/2024 and reports that he was coherent, though he had lost weight. He reports that the first real instance of significant altered mental status was in November when he was last
admitted (12/16/2024). We discussed the patient's elevated PTHrP from prior visit as well as prognosis. Family is aware of incurable disease, but at this time would like life saving measure and full code. MRI findings reviewed with carroll Thibodeaux on
phone today also reviewed patient's baseline mental status with Carlos Eduardo and agree with the above documentation from Dr. Rick. Carlos Eduardo is open to having the conversation of hospice, but that was against his father's will when he had conversation
with his father while his cognitively doing well. So he wants to pursue further answers and know that hospice is the right decision before he could make that. He thinks it is safe for him and his father to be evaluated by oncology and have the
cancer prognosis discussion with oncology in the hospital before making decision to go to hospice.
Deven was following Dr. Gao with [facility] hematology and oncology, phone number-[phone].
As of today, spoke to son. Son is very angry and upset that there is no clear communication from either oncology teams at [facility] or his father's primary care oncology.
He wants transfer of care to [place] oncology and he was wondering why no one is reaching him out or the appropriate transferring the care. I reached out to oncological team from Wednesday through for the same purpose.
Spoke to oncology care team at [facility], and with Dr. Gao at [facility].
Although they are not predicament to make comment on oncological diagnosis related prognosis (due to lack of investigative workup,) both oncology groups think his medical comorbidities will make him less likely a candidate for immunotherapy going
forward. Will update the patient on phone. Will add an addendum after speaking to Carlos Eduardo his son in [place] on this note.
Acute encephalopathy
Not oriented to time person and place.
Most likely metabolic versus toxic. No evidence for metabolic encephalopathy as well
No neurodegenerative cause identified on MRI of the brain.
No evidence of stroke or metastasis on MRI of the brain.
CPK and ammonia levels within normal limits, VBG shows chronic non-anion gap metabolic acidosis with respiratory alkalosis compensation.
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
Oncology also spoke to Dr. gao from [facility] hematology and oncology, willing to take over patient's care.
Appreciate oncology inputs.
Patient is more altered compared to his previous hospital discharge.
head ct showing no acute intracranial abnormality
Patient has stage IV metastatic RCC, has not had chemotherapy in the last several months and has not had oncology follow up PET scanning since July 2024
Acute stroke excluded. Consider discontinuing aspirin.
Neurology signed off, recommended outpatient follow-up.
Oncology signed off,-oncology recommended (poor candidate to resume antineoplastic therapy, likelihood of continuation for readmission is high and futile. Oncology recommends hospice).
Anemia-
Macrocytic anemia
Likely a confluence of anemia of chronic disease, ESRD.
Follow CBC.
Hb down to 6.8 from 7.1
1 unit of blood transfusion. verbal consent obtained from the patient's son on phone.
Will update the patient's family again.
Irregular heart rate -resolved
EKG in the am shows NSR with PACs.
Discontinue telemety.
Asymptomatic bacteriuria,
Chronic indwelling Driscoll catheter-more than 3 months.
UA likely contaminated, squamous epithelial cells 10.
Reflex culture no growth.
More likely chronic colonization secondary to indwelling Driscoll.
ESRD-
S/p aVF fistula creation .
Ecchymosis improving on the fistula.
Steady creatinine levels at 3.7.
No dialysis warranted at this time
Trend serum creatinine.
Malignant hypercalcemia-
Secondary to paraneoplastic PTHrP secreting syndrome.
History of parathyroidectomy
Stage IV RCC with mets to bone and liver.
Currently calcium corrected for albumin at 10.8, mild hypercalcemia.
Family requesting oncology consult to assess for prognosis.
Continue with IV fluids.
Orthostatic hypotension
With history of primary hypertension.
Home medications also included midodrine 5 mg as needed for SBP <100 or symptomatic dizziness
Hold amlodipine to avoid hypotension.
DVT PPx
Heparin SC
Code Status
Full Code
Conditions CLOTH DOFFER -
Anxiety/depression
Hypothyroidism - Unclear etiology, home regimen includes levothyroxine 75 mcg daily - TSH normal
GERD - C/w pantoprazole 40 mg twice daily
Dyslipidemia - No known ASCVD history, home medications include moderate intensity statin, aspirin
Chronic dysphagia
h/o GE junction stenosis s/p esophageal dilation
h/o achalasia
MRI Brain - 01/01/25 -
IMPRESSION:
No acute intracranial abnormality noted. Chronic senescent changes.
Plan for discharge, communicating with oncology to sort out the game plan for patient.
Anticipated Discharge: 24 - 48 hours
Subjective/Interval History
-
Date of Service: January 04, 2025
Patient is more oriented and coherent today. Patient stated that his goal is to get better and go home. He also demanded to talk to his grandson and son in person. But not on phone.
Will update the family about this. Patient denies having any complaints and states his goal to clearly get better and go home.
Objective Data
-
Labs:
Laboratory Results
01/04/25
08:16
WBC Pending
Hgb Pending
Hct Pending
Plt Count Pending
Sodium Pending
Potassium Pending
Chloride Pending
Carbon Dioxide Pending
BUN Pending
Creatinine Pending
Glucose Pending
Calcium Pending
Total Bilirubin Pending
AST Pending
ALT Pending
Alkaline Phosphatase Pending
Vital Signs:
Vital Signs
Temp Pulse Resp BP Pulse Ox
97.9 F 84 16 143/68 97
01/03/25 23:12 01/03/25 23:12 01/03/25 23:12 01/03/25 23:12 01/03/25 23:12
I&O
01/03/25 01/04/25 01/05/25
06:59 06:59 06:59
Intake Total 610 / 610 240 / 240
Output Total 1000 / 1000 1500 / 1500
Balance -390 / -390 -1260 / -1260
Review of Systems
-
History Source: Patient
Constitutional: Reports No Symptoms
EENT: Reports No Symptoms Reported
Respiratory: Reports No Symptoms
Cardiac: Reports No Symptoms
Abdomen/GI: Reports No Symptoms
Genitourinary: Reports No Symptoms
Musculoskeletal: Reports No Symptoms
Skin: Reports No Symptoms
Neuro: Reports No Symptoms
Endocrine: Reports No Symptoms
Allergy / Immunology: Reports No Symptoms
Physical Exam
-
General: No Apparent Distress and Comfortable
HEENT: Moist Mucous Membranes
Respiratory: Clear to Auscultation; Negative Wheezes, Rales, Rhonchi or Crackles
Cardiac: Regular Rhythm and S1/S2; Negative Murmur, Rub or Gallop
GI: Soft, Nontender, Nondistended and Normal Bowel Sounds
Musculoskeletal: No Clubbing, No Cyanosis and No Edema
Skin: Warm and Other (Hematoma noted next to the left AV fistula.)
Neuro: AO x 3 and No Motor Deficits
Psych: Calm
Data Reviewed
-
Medical Tests (Nuc Med, Echo etc): Image personally visualized and interpreted
Labs: Labs Reviewed by me and Discussed with Physician
[2025-01-04 09:14] LABS: Hematocrit 28.4 % (39.0-52.0); Hemoglobin 9.2 g/dL (13.0-18.0); Mean Corp Hgb Conc. 32.4 g/dL (33.0-37.0); Mean Corpuscular Hgb 31.7 pg (27.0-31.0); Mean Corpuscular Volume 97.9 fL (80.0-94.0); Mean Platelet Volume 9.6 fL (7.4-10.4); Platelet Count 124 10^3/uL (130-400); Red Cell Dist. Width 18.4 % (11.5-14.5)
[2025-01-04 09:59] LABS: ALT (SGPT) 17 U/L (0-50); AST (SGOT) 56 U/L (17-59); Albumin 2.5 g/dl (3.5-5.0); Alkaline Phosphatase 61 U/L (38-126); Blood Urea Nitrogen 40 mg/dl (9-20); Calcium 10.6 mg/dl (8.4-10.2); Carbon Dioxide 18 mmol/L (22-30); Chloride 117 mmol/L (98-107); Estimated Creatinine Clearance 15 ml/min; Glucose 83 mg/dl (70-99); Potassium 4.3 mmol/L (3.5-5.1); Sodium 142 mmol/L (135-145); Total Bilirubin 1.1 mg/dl (0.2-1.3); Total Protein 4.8 g/dl (6.3-8.2); eGFR 18.49
--- NOTE | 2025-01-04 11:19 | W.PN.ONC ---
Today's Communication / Plan
-
Delirium appears to be improved
Patient with known bony metastases and hypercalcemia related to renal cell carcinoma
Difficult to predict prognosis but treatment is clearly palliative
Has been off of therapy for>3 months in order to understand pace of disease additional imaging would be required and compared to previous studies
Current performance status and toxicities from previous treatment limits therapy significantly
If his performance status improves he may be a candidate for further TKI directed treatment with oral therapy
Patient states that he is interested in pursuing all avenues to prolong his survival
Impression
Impression
Acute delirium, improving
Renal cancer metastatic to bone
Variable hypercalcemia
ESRD
Plan
Plan
.
Subjective/Objective
Subjective/Objective
Patient appears lucid and appropriate today.
Vital Signs:
Vital Signs
Temp Pulse Resp BP Pulse Ox
97.7 F 90 24 130/99 96
01/04/25 07:30 01/04/25 07:30 01/04/25 07:30 01/04/25 07:30 01/04/25 07:30
physical exam unchanged
Lab Results:
Laboratory Data
WBC 5.0 10^3/uL (4.8-10.8) 01/04/25 08:16
Hgb 9.2 g/dL (13.0-18.0) L 01/04/25 08:16
Plt Count 124 10^3/uL (130-400) L 01/04/25 08:16
eGFR 18.49 01/04/25 08:16
[2025-01-04] MEDS: FLOMAX 0.8 MG PO (11:23)
--- NOTE | 2025-01-04 11:23 | CM ---
Addendum entered by Diana Galicia 01/04/25 15:51:
Plan now if for skilled placement options reviewed with patient's son, Carlos Eduardo and he has selected [facility], referral sent to [facility] however they do not have a contract with patient's insurance, leather case finisher reached out to patient's carroll Thibodeaux and
reviewed Medicare.gov facilities and selected 4 to [place] facilities, which include, [facility], [facility], and [facility]. Referrals sent to all of these facilities.
Original Note:
Chart reviewed and leather case finisher spoke with son and AYAD Thibodeaux this am, and he is still waiting on a final decision or recommendation from oncology on plan for patient. Patient's son mentioned that there was no final decision. Patient was admitted
from [facility], and per [place] at [facility] [phone], they only way they can accept patient back at their facility is if patient and family agree to hospice, [facility] cell [phone], , Fax [phone]
[phone], have reached out to patient's son and AYAD Thibodeaux to review hospice philosophy.
Plan; Waiting on final decision on plan for patient, will follow with updated Oncology notes.
[2025-01-04] MEDS: LIPITOR 20 MG PO (20:46)
[2025-01-04 23:43] VITALS: BP 127/83
[2025-01-05] MEDS: SYNTHROID 75 MCG PO (06:14)
[2025-01-05 07:00] VITALS: BP 134/68
--- NOTE | 2025-01-05 07:26 | W.PN.UPDATE ---
Update Note
Progress Note Update
Yesterday, in the noon I had a conversation with the son and I updated him-that his father is more clear and coherent, and wanted to try every corner to get better, and to go home. I also told son that Dr. Gomez might be willing to speak to him
([place] texted oncology in the a.m. with no response), but manager rn case Diana guerra updated me that Dr. Gomez will be speaking to him. Also reviewed plan of discharge with the patient's son Carlos Eduardo. Son Carlos Eduardo got upset on why oncology was not
willing to take over his father's care. (As of Wednesday and Wednesday, oncology refused to take patient's care over when I communicated with oncology.). So I created a group chat copying my supervising provider, oncology, and case management asking
if someone is willing to speak to the son. Dr. Gomez was able to speak to the son and help with the discharge plan, and transfer of care. Jeromy Thibodeaux, was blaming me to take the responsibility and apologize for lack of communication from oncology.
I told the son that ' I understand he is frustrated, and I was trying my best to get the oncology team to speak to him, and it was not my fault for someone from oncology not speaking to you for the last 2 days'. He got very upset, and started being
rude to me on the phone trying to intimidate me. I relayed the information to my supervising provider, and my supervising provider Dr. Clark is aware of whole situation beginning Wednesday. Beginning today, I will not be communicating with the
patient's family as per instructed by my supervising provider.
[2025-01-05] MEDS: PROTONIX 40 MG PO ×2 (07:36→21:25)
[2025-01-05] MEDS: PROSCAR 5 MG PO (07:36)
[2025-01-05] MEDS: VITAMIN D3 (cholecalciferol) 50 MCG PO (07:36)
[2025-01-05] MEDS: HEPARIN 5000 UNITS SC (07:36)
[2025-01-05] MEDS: ASPIR LOW (ENTERIC COATED) 81 MG PO (07:36)
[2025-01-05] MEDS: DESENEX/MITRAZOL/ZEASORB 1 APPLIC TOPICAL ×2 (07:36→21:24)
[2025-01-05 08:03] LABS: Hemoglobin 9.1 g/dL (13.0-18.0); Mean Corp Hgb Conc. 32.5 g/dL (33.0-37.0); Mean Corpuscular Hgb 31.9 pg (27.0-31.0); Mean Corpuscular Volume 98.2 fL (80.0-94.0); Mean Platelet Volume 9.7 fL (7.4-10.4); Platelet Count 127 10^3/uL (130-400); Red Blood Cell Count 2.85 10^6/uL (4.70-6.10); Red Cell Dist. Width 18.2 % (11.5-14.5); White Blood Cell Count 4.8 10^3/uL (4.8-10.8)
[2025-01-05 08:28] LABS: ALT (SGPT) 19 U/L (0-50); AST (SGOT) 62 U/L (17-59); Albumin 2.7 g/dl (3.5-5.0); Alkaline Phosphatase 63 U/L (38-126); Blood Urea Nitrogen 42 mg/dl (9-20); Calcium 10.9 mg/dl (8.4-10.2); Carbon Dioxide 18 mmol/L (22-30); Chloride 117 mmol/L (98-107); Estimated Creatinine Clearance 14 ml/min; Glucose 89 mg/dl (70-99); Potassium 4.4 mmol/L (3.5-5.1); Sodium 142 mmol/L (135-145); Total Bilirubin 1.2 mg/dl (0.2-1.3); Total Protein 5.1 g/dl (6.3-8.2)
--- NOTE | 2025-01-05 09:26 | W.PN.HOSP.TC ---
Addendum entered and electronically signed by Ranjan Ch MD 01/05/25 20:27:
Attending Addendum-
I saw and evaluated the patient. I reviewed the resident�s note and agree with findings and plan as documented in the resident�s note. Sub: 'id like to use the public phone' Still confused and upset at lack of care by his family. Full 10 point ROS
reviewed and negative except as documented- limited by confusion but able to answer sxs questions Exam: Vitals reviewed in chart GEN-NAD heart RRR lungs clear abd soft LE no edema LUE fistula present +1 non pitting edema bruising present, Neuro AAO
x 1 MS 01/01 - driscoll in place draining clear yellow urine
Plan:
#Acute encephalopathy
- unclear etiology
- unclear baseline doubt further improvement
- brain mri w/o uday 01/01- No acute intracranial abnormality noted
- DC asa
- neurology consult appreciated
- overall poor prognosis / hospice appropriate - son refusing
# LUE edema with bruising
- fistula in place
- LUE US - small hematoma around fistula
#Chronic Driscoll catheter from BPH
- cont proscar/flomax
- urine cx- NG
- cont Driscoll care
#CKD stage V with metabolic acidosis
- cr likely @ new baseline @ 3.2
- s/p AVF creation 12/22
- no emergent need for dialysis at this time
- trend bmp
#Malignant Hypercalcemia-ca WNL CTM
#H/o parathyroidectomy
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
#Anemia of chronic disease
- stable
- SPEP and UPEP WNL
- transfused 1 unit PRBC 01/02
- repeat CBC in am
#Orthostatic hypotension
#Primary hypertension
- midodrine 5 mg as needed for SBP <100
- Hold amlodipine to avoid hypotension given AMS
#Anxiety/depression
#Hypothyroidism - cont levothyroxine
#GERD - C/w pantoprazole
#Dyslipidemia - No known ASCVD history, home medications include moderate intensity statin, aspirin
#Chronic dysphagia
#h/o GE junction stenosis s/p esophageal dilation
#h/o achalasia
DVT PPx: Heparin SC
Code Status: Full Code
Dispo- DC to SNF when able- awaiting auth to go to [facility] (orig from [facility]) *overall poor prognosis high risk readmission*
Time spent coordinating care, review of plan of care with resident, personally reviewed records in EMR, med rec, consults, notes, labs, radiology, d/w nursing � 52 mins
Original Note:
Today's Communication/Plan
-
Continue current medical management.
Hold heparin.
Sequential compression devices for today.
Will reassess in the afternoon for extravasation.
Assessment / Plan
Assessment / Plan
Assessment- 84 yo M with history of stage IV RCC s/p left nephrectomy, CKD stage V (s/p AVF creation in left forearm), metastasis to bone and liver metastases who presents with acute encephalopathy 2 days after prior admission.
(Spoke with carroll Thibodeaux over the phone. He last saw his father in person 11/28/2024 and reports that he was coherent, though he had lost weight. He reports that the first real instance of significant altered mental status was in November when he was last
admitted (12/16/2024). We discussed the patient's elevated PTHrP from prior visit as well as prognosis. Family is aware of incurable disease, but at this time would like life saving measure and full code. MRI findings reviewed with carroll Thibodeaux on
phone today also reviewed patient's baseline mental status with Carlos Eduardo and agree with the above documentation from Dr. Rick. Carlos Eduardo is open to having the conversation of hospice, but that was against his father's will when he had conversation
with his father while his cognitively doing well. So he wants to pursue further answers and know that hospice is the right decision before he could make that. He thinks it is safe for him and his father to be evaluated by oncology and have the
cancer prognosis discussion with oncology in the hospital before making decision to go to hospice.
Deven was following Dr. Gao with [facility] hematology and oncology, phone number-[phone].
As of today, spoke to son. Son is very angry and upset that there is no clear communication from either oncology teams at [facility] or his father's primary care oncology.
He wants transfer of care to [facility] and he was wondering why no one is reaching him out or the appropriate transferring the care. I reached out to oncological team from Wednesday through for the same purpose.
Spoke to oncology care team at [facility], and with Dr. Gao at [facility].
Although they are i predicament to make comment on oncological diagnosis related prognosis (due to lack of investigative workup,) both oncology groups think his medical comorbidities will make him less likely a candidate for immunotherapy going
forward. Will update the patient on phone. Will add an addendum after speaking to Carlos Eduardo his son in [place] on this note.)-All the conversation is carried with patient's son Carlos Eduardo from Wednesday through .
Acute extravasation of blood-10 mL of blood loss as assessed from removed nonfoam dressing pad.
Pressure dressing and packing applied on the site of extravasation.
No obvious cause of bleeding, platelets at 127.
Will check hemoglobin in the a.m.
Acute encephalopathy
Not oriented to time person and place.
Most likely metabolic versus toxic. No evidence for metabolic encephalopathy as well
No neurodegenerative cause identified on MRI of the brain.
No evidence of stroke or metastasis on MRI of the brain.
CPK and ammonia levels within normal limits, VBG shows chronic non-anion gap metabolic acidosis with respiratory alkalosis compensation.
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
Oncology also spoke to Dr. gao from [facility] hematology and oncology, willing to take over patient's care.
Appreciate oncology inputs.
Patient is more altered compared to his previous hospital discharge.
head ct showing no acute intracranial abnormality
Patient has stage IV metastatic RCC, has not had chemotherapy in the last several months and has not had oncology follow up PET scanning since July 2024
Acute stroke excluded. Consider discontinuing aspirin.
Neurology signed off, recommended outpatient follow-up.
Oncology signed off,-oncology recommended (poor candidate to resume antineoplastic therapy, likelihood of continuation for readmission is high and futile. Oncology recommends hospice).
Anemia-
Macrocytic anemia
Likely a confluence of anemia of chronic disease, ESRD.
Follow CBC.
Hb down to 6.8 from 7.1
1 unit of blood transfusion. verbal consent obtained from the patient's son on phone.
Will update the patient's family again.
Irregular heart rate -resolved
EKG in the am shows NSR with PACs.
Discontinue telemety.
Asymptomatic bacteriuria,
Chronic indwelling Driscoll catheter-more than 3 months.
UA likely contaminated, squamous epithelial cells 10.
Reflex culture no growth.
More likely chronic colonization secondary to indwelling Driscoll.
ESRD-
S/p aVF fistula creation on.
Ecchymosis improving on the fistula.
Steady creatinine levels at 3.7.
No dialysis warranted at this time
Trend serum creatinine.
Malignant hypercalcemia-
Secondary to paraneoplastic PTHrP secreting syndrome.
History of parathyroidectomy
Stage IV RCC with mets to bone and liver.
Currently calcium corrected for albumin at 10.8, mild hypercalcemia.
Family requesting oncology consult to assess for prognosis.
Continue with IV fluids.
Orthostatic hypotension
With history of primary hypertension.
Home medications also included midodrine 5 mg as needed for SBP <100 or symptomatic dizziness
Hold amlodipine to avoid hypotension.
DVT PPx
Code Status
Full Code
Conditions CAFETERIA DIRECTOR -
Anxiety/depression
Hypothyroidism - Unclear etiology, home regimen includes levothyroxine 75 mcg daily - TSH normal
GERD - C/w pantoprazole 40 mg twice daily
Dyslipidemia - No known ASCVD history, home medications include moderate intensity statin, aspirin
Chronic dysphagia
h/o GE junction stenosis s/p esophageal dilation
h/o achalasia
MRI Brain - 01/01/25 -
IMPRESSION:
No acute intracranial abnormality noted. Chronic senescent changes.
Plan for discharge, communicating with oncology to sort out the game plan for patient.
Anticipated Discharge: 24 - 48 hours
Subjective/Interval History
-
Date of Service: January 05, 2025
Patient denies having any complaints today. Per RN, he received a dose of heparin subcu below his umbilicus yesterday night from which he has been oozing blood all night into morning. Mornings heparin doses held.
Patient states he did not have bowel movements. Per RN, patient barely eats any food with no appetite, MiraLAX was administered yet with no bowel output.
Objective Data
-
Labs:
Laboratory Results
01/05/25
07:31
WBC 4.8
Hgb 9.1 L
Hct 28.0 L
Plt Count 127 L
Sodium 142
Potassium 4.4
Chloride 117 H
Carbon Dioxide 18 L
BUN 42 H
Creatinine 3.4 H
Glucose 89
Calcium 10.9 H
Total Bilirubin 1.2
AST 62 H
ALT 19
Alkaline Phosphatase 63
Vital Signs:
Vital Signs
Temp Pulse Resp BP Pulse Ox
97.4 F 89 20 134/68 98
01/05/25 07:00 01/05/25 07:00 01/05/25 07:00 01/05/25 07:00 01/05/25 07:00
I&O
01/04/25 01/05/25 01/06/25
06:59 06:59 06:59
Intake Total 960 / 960
Output Total 2900 / 2900
Balance -1939 /
Review of Systems
-
Unable to obtain full review of systems at this time due to: Dementia
All other systems: Reviewed and negative
Physical Exam
-
General: No Apparent Distress and Comfortable
HEENT: Normocephalic, Atraumatic and Moist Mucous Membranes
Respiratory: Clear to Auscultation and Crackles (Faint lower lobe); Negative Wheezes, Rales or Rhonchi
Cardiac: Regular Rhythm and S1/S2; Negative Murmur, Rub or Gallop
GI: Soft, Nontender, Nondistended, Normal Bowel Sounds and Other (Bruising on the abdomen from heparin shots, noted blood oozing from the site of heparin shot overnight, cleaned the area with alcohol wipes, used a sterile pad as a barrier and
multiple gauze pieces and applied a pressure dressing.)
Musculoskeletal: No Clubbing, No Cyanosis, No Edema and Other (Left AV fistula, hematoma improving.)
Skin: Warm
Neuro: AO x 3, No Motor Deficits and No Sensory Deficits
Psych: Calm
Data Reviewed
-
Medical Tests (Nuc Med, Echo etc): Image personally visualized and interpreted and Report Reviewed by me
Labs: Labs Reviewed by me and Discussed with Physician
[2025-01-05 11:20] VITALS: BP 137/68; BP 137/83; PULSE 95; O2SAT 97
[2025-01-05] MEDS: FLOMAX 0.8 MG PO (11:49)
--- NOTE | 2025-01-05 13:50 | CM ---
Addendum entered by Diana Galicia 01/05/25 14:54:
Auth submitted to [facility] patient's insurance for skilled placement at [facility], pending ref # [id number], all clinicals faxed to [phone].
Original Note:
clinical case manager reviewed patient's chart and reached out to patient's son this am, options were reviewed yesterday and plan was to send referrals to facilities with 4/5 stars, this included, [facility], [facility], [facility] and
[facility], Per admissions at [facility] they do not accept patient's insurance, per admissions at [facility] and [facility] they have no beds, per admissions at [facility] they can accept patient, updated oncology notes
faxed to admissions at [facility].
Patient's son was asked to review Medicare.gov rating on facility and patient's son requested link to view facility which was sent.
Plan; Skilled placement at [facility].
Dr Peters
[phone]
[facility]
[2025-01-05 14:56] VITALS: BP 146/86
[2025-01-05] MEDS: LIPITOR 20 MG PO (21:24)
[2025-01-05 23:26] VITALS: BP 133/68
[2025-01-06] MEDS: SYNTHROID 75 MCG PO (06:16)
[2025-01-06] MEDS: DESENEX/MITRAZOL/ZEASORB 1 APPLIC TOPICAL (07:31)
[2025-01-06] MEDS: VITAMIN D3 (cholecalciferol) 50 MCG PO (07:41)
[2025-01-06] MEDS: PROTONIX 40 MG PO (07:41)
[2025-01-06] MEDS: ASPIR LOW (ENTERIC COATED) 81 MG PO (07:41)
[2025-01-06 07:55] VITALS: BP 143/80
--- NOTE | 2025-01-06 09:23 | CM ---
Addendum entered by Geovanna Sweeney 01/06/25 11:12:
CM reviewed chart, auth approved to [facility], information provided to liaison. Phone call to patients son, aware of d/c, scheduled for 3:00 p.m. ambulance transport. IMM verbally reviewed with son, agreeable to d/c plan, placed in chart. CM
will continue to follow for all discharge planning needs.
Plan; [facility], 3:00 p.m. ambulance transport
Report: [phone]

Original Note:
Received message from [facility] auth number [id number] approved skilled days at [facility] from 01/06/25 to 01/09/25 NRD roseanna Champion fax [phone]. CM notified of auth
[2025-01-06] MEDS: FLOMAX 0.8 MG PO (11:07)
[2025-01-06 11:10] LABS: Hematocrit 26.9 % (39.0-52.0); Hemoglobin 8.8 g/dL (13.0-18.0); Mean Corp Hgb Conc. 32.7 g/dL (33.0-37.0); Mean Corpuscular Hgb 31.4 pg (27.0-31.0); Mean Corpuscular Volume 96.1 fL (80.0-94.0); Mean Platelet Volume 9.6 fL (7.4-10.4); Platelet Count 119 10^3/uL (130-400); Red Cell Dist. Width 17.8 % (11.5-14.5); White Blood Cell Count 4.6 10^3/uL (4.8-10.8)
[2025-01-06 11:40] LABS: ALT (SGPT) 22 U/L (0-50); AST (SGOT) 66 U/L (17-59); Albumin 2.9 g/dl (3.5-5.0); Alkaline Phosphatase 68 U/L (38-126); Blood Urea Nitrogen 44 mg/dl (9-20); Calcium 11.3 mg/dl (8.4-10.2); Carbon Dioxide 18 mmol/L (22-30); Chloride 115 mmol/L (98-107); Estimated Creatinine Clearance 14 ml/min; Glucose 93 mg/dl (70-99); Potassium 4.4 mmol/L (3.5-5.1); Sodium 143 mmol/L (135-145); Total Bilirubin 1.4 mg/dl (0.2-1.3); Total Protein 5.4 g/dl (6.3-8.2); eGFR 16.61
--- NOTE | 2025-01-06 12:14 | W.PN.HOSP.TC ---
Today's Communication/Plan
-
Discharge to SNF
Assessment / Plan
Assessment / Plan
#Acute encephalopathy
- unclear etiology, likely delirium
- unclear baseline doubt further improvement
- brain mri w/o uday 01/01- No acute intracranial abnormality noted
- neurology consult appreciated
- overall poor prognosis / hospice appropriate - son refusing
# LUE edema with bruising
- fistula in place
- LUE US - small hematoma around fistula
#Chronic Coburn catheter from BPH
- cont proscar/flomax
- urine cx- NG
- cont Coburn care
#CKD stage V with metabolic acidosis
- cr likely @ new baseline @ 3.2
- s/p AVF creation 12/22
- no emergent need for dialysis at this time
- trend bmp
#Malignant Hypercalcemia-ca WNL CTM
#H/o parathyroidectomy
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
#Anemia of chronic disease
- stable
- SPEP and UPEP WNL
- transfused 1 unit PRBC 01/02
- repeat CBC in am
#Orthostatic hypotension
#Primary hypertension
- midodrine 5 mg as needed for SBP <100
- Hold amlodipine to avoid hypotension given AMS
#Anxiety/depression
#Hypothyroidism - cont levothyroxine
#GERD - C/w pantoprazole
#Dyslipidemia - No known ASCVD history, home medications include moderate intensity statin, aspirin
#Chronic dysphagia
#h/o GE junction stenosis s/p esophageal dilation
#h/o achalasia
DVT PPx: Heparin SC
Code Status: Full Code
Dispo- DC to [facility] *overall poor prognosis high risk readmission*
Anticipated Discharge: Today
Subjective/Interval History
-
Date of Service: January 06, 2025
Objective Data
-
Labs:
Laboratory Results
01/06/25
10:18
WBC 4.6 L
Hgb 8.8 L
Hct 26.9 L
Plt Count 119 L
Sodium 143
Potassium 4.4
Chloride 115 H
Carbon Dioxide 18 L
BUN 44 H
Creatinine 3.5 H
Glucose 93
Calcium 11.3 H
Total Bilirubin 1.4 H
AST 66 H
ALT 22
Alkaline Phosphatase 68
Vital Signs:
Vital Signs
Temp Pulse Resp BP Pulse Ox
97.1 F 86 18 143/80 98
01/06/25 07:55 01/06/25 07:55 01/06/25 07:55 01/06/25 07:55 01/06/25 07:55
I&O
01/05/25 01/06/25 01/07/25
06:59 06:59 06:59
Intake Total 960 / 960 120 / 120
Output Total 2900 / 2900 900 / 900
Balance -1940 / -1940 -780 / -780
[2025-01-06 13:07] VITALS: BP 132/81
[2025-01-06 15:01] VITALS: BP 141/67
== END 2025-01-06 15:44 | DRG 71 ==
LOC: 4 WEST ACU 08:06
PROVIDERS: Emergency Medicine; Physician Assistant; Student in an Organized Health Care Education/Training Program; ADMITTING PHYSICIAN Internal Medicine; ATTENDING PHYSICIAN Internal Medicine; CONSULT PHYSICIAN Internal Medicine Hematology & Oncology; CONSULT PHYSICIAN Psychiatry & Neurology Neurology; EMERGENCY PHYSICIAN Emergency Medicine; FAMILY PHYSICIAN Hospitalist
PROC: 30233N1 Transfusion of Nonautologous Red Blood Cells into Peripheral Vein, Percutaneous Approach (ICD-10-PCS; 2025-01-02)
DX: G93.49 Other encephalopathy (principal); C64.9 Malignant neoplasm of unspecified kidney, except renal pelvis; C79.51 Secondary malignant neoplasm of bone; D84.9 Immunodeficiency, unspecified; E87.20 Acidosis, unspecified; N18.5 Chronic kidney disease, stage 5; C78.7 Secondary malignant neoplasm of liver and intrahepatic bile duct; I48.91 Unspecified atrial fibrillation; Z79.82 Long term (current) use of aspirin; I95.1 Orthostatic hypotension; F32.A Depression, unspecified; F41.9 Anxiety disorder, unspecified; E03.9 Hypothyroidism, unspecified; K21.9 Gastro-esophageal reflux disease without esophagitis; Z79.899 Other long term (current) drug therapy; Z85.07 Personal history of malignant neoplasm of pancreas; Z85.528 Personal history of other malignant neoplasm of kidney; Z90.5 Acquired absence of kidney
CPT/HCPCS: 70450; 70551; 80048; 80053; 81003; 81015; 82040; 82140; 82550; 82607; 82746; 82805; 83605; 85025; 85027; 86850; 86900; 86901; 86920; 87070; 87086; 93005; 93971; 96360; 97163; 97167; 97530; 97535; 99285; P9016